=== PATIENT | male | born 1980 | race Hispanic/Latino ===

== ENCOUNTER 2016-11-26 23:45 | Inpatient (IN) | payer OTHER ==
[2016-11-27] MEDS: HEPARIN/ 0.45% NACL-25,000 UNIT/500 ML 500 ML IV SCH ×4 (01:05→22:42)
[2016-11-27] MEDS ORDERED: NACL 0.9% 500 ML 500 ML ONE (01:29)
[2016-11-27] MEDS ORDERED: TYLENOL PO PRN (01:34)
[2016-11-27] MEDS ORDERED: PERCOCET 5/325 PO PRN (01:34)
[2016-11-27] MEDS ORDERED: NACL 0.9% 1000 ML 1,000 ML IV ONE (01:47)
--- NOTE | 2016-11-27 01:48 | History and Physical Report ---
History of Present Illness Date of examination: 11/27/16 Date of admission: 11/26/16 23:45 History of present illness: 36-year-old man with a history of hypertension, diabetes, obesity, chronic pain was transfer from [facility] to [facility] on the sixth floor. Patient was diagnosed with sepsis secondary to pneumonia, psoas abscess, MSSA bacteremia. He was in respiratory failure, he was trached. While on LTAC, the patient was tachycardic, CAT scan was done which shows extensive bilateral pulmonary emboli in the saddle emboli. The patient was started on heparin drip. He was then transferred to the ICU for further care. Patient has been hypotensive, blood pressure right now is systolic 83, heart rate 115 Patient denies chest pain, palpitation, shortness of breath, cough, abdominal pain, hematochezia, dysuria, frequency, focal weakness, dysarthria, fever chills , polydipsia polyuria, hot or cold intolerance, easy bruisability, or rash or bleeding from mucosal membrane, rhinorrhea, epistaxis, earache, tinnitus, blurry vision, eye discharge, anxiety, depression. Other review of systems negative PAST SURGICAL HISTORY: None SOCIAL HISTORY: He chews tobacco, no alcohol, history of prescription abuse FAMILY HISTORY: Diabetes Medications and Allergies Allergies Allergy/AdvReac Type Severity Reaction Status Date / Time gentamicin Allergy Unknown Verified 11/27/16 02:31 neomycin Allergy Unknown Verified 11/27/16 02:31 Home Medications Medication Instructions Recorded Confirmed Last Taken Type ALBUTEROL NEB's [Proventil 0.083% 3 ml INHALATION Q6HR 11/29/16 11/29/16 Unknown History NEBS] ALPRAZolam [Xanax TAB] 0.25 mg FEEDTUBE Q6H PRN 11/29/16 11/29/16 11/25/16 History Acetaminophen ORAL LIQ 650 mg FEEDTUBE Q6H PRN 11/29/16 11/29/16 Unknown History Arformoterol Nebu [Brovana Nebu] 2 ml INHALATION BID 11/29/16 11/29/16 Unknown History Budesonide 2 ml INHALATION BID 11/29/16 11/29/16 Unknown History Docusate Sodium [Colace] 100 mg FEEDTUBE DAILY PRN 11/29/16 11/29/16 Unknown History FLUoxetine [PROzac] 20 mg FEEDTUBE QDAY 11/29/16 11/29/16 Unknown History HumaLOG VIAL See Protocol SUB-Q Q6H 11/29/16 11/29/16 Unknown History L. Acidophilus/L.bulgaricus [Bd 1 each FEEDTUBE DAILY 11/29/16 11/29/16 Unknown History Lactinex] Lipase/Protease/Amylase 1 cap FEEDTUBE PRN PRN 11/29/16 11/29/16 Unknown History Magnesium Hydroxide 30 ml FEEDTUBE PRN PRN 11/29/16 11/29/16 Unknown History Megestrol [Megace] 800 mg FEEDTUBE DAILY 11/29/16 11/29/16 11/25/16 History Methadone [Dolophine] 20 mg FEEDTUBE DAILY 11/29/16 11/29/16 11/25/16 History Nystop Powder 1 gm TP TID 11/29/16 11/29/16 11/25/16 History Pantoprazole [Protonix TAB] 40 mg FEEDTUBE DAILY 11/29/16 11/29/16 11/25/16 History Sucralfate [Carafate] 1 gm FEEDTUBE Q6HR 11/29/16 11/29/16 11/25/16 History Tamsulosin [Flomax] 0.4 mg PO QHS 11/29/16 11/29/16 11/25/16 History ceFAZolin SODIUM IN 0.9 % NACL 2 gm IV Q8H 11/29/16 11/29/16 11/25/16 History [Cefazolin 2 G/50 ml-0.9% NaCl] hydrALAZINE [Apresoline] 25 mg FEEDTUBE TID 11/29/16 11/29/16 Unknown History oxyCODONE /ACETAMINOPHEN 1 tab FEEDTUBE Q4H PRN 11/29/16 11/29/16 Unknown History Active Meds: Active Medications Acetaminophen (Tylenol) 650 mg PO Q6H PRN PRN Reason: Pain MILD(1-3)/Fever >100.5/MONSIVAIS Al Hydrox/Mg Hydrox/Simethicone (Alum-Mag Hydrox-Simeth [phone]/5ml) 30 ml PO Q4H PRN PRN Reason: Indigestion Heparin Sodium/Sodium Chloride (Heparin/ 0.45% Nacl-25,000 Unit/500 Ml) 500 mls @ IV TITR BISHOP; 15 UNITS/KG/HR PRN Reason: Protocol Sodium Chloride (Nacl 0.9% 1000 Ml) 1,000 mls @ 150 mls/hr IV DIRECT BISHOP Piperacillin Sod/Tazobactam Sod (Zosyn/Ns 3.375gm/50ml) 50 mls @ 100 mls/hr IV Q8HR BISHOP Sodium Chloride (Nacl 0.9% 1000 Ml) 1,000 mls @ 150 mls/hr IV DIRECT BISHOP Sodium Chloride (Nacl 0.9% 1000 Ml) 1,000 mls @ 999 mls/hr IV ONCE ONE Stop: 11/27/16 02:47 Magnesium Hydroxide (Milk Of Magnesia) 30 ml PO Q4H PRN PRN Reason: Constipation Ondansetron HCl (Zofran) 4 mg IV Q4H PRN PRN Reason: N/V unrelieved by Reglan Oxycodone/Acetaminophen (Percocet 5/325) 1 tab PO Q6H PRN PRN Reason: Pain, Moderate (4-6) Exam - Physical Exam Narrative exam: Gen. appearance: Patient lying in bed, no apparent distress HEENT: Normocephalic, atraumatic, pupils equally round and reactive to light, extraocular movement intact, and no sclericterus,. No JVD or thyromegaly or nodule,neck supple, no carotid bruit ,mucous membranes moist, no exudate or erythema Heart: S1, S2, regular rate and rhythm Lungs: Clear to auscultation bilaterally, breathing comfortable Abdomen: Positive bowel sounds, nontender, nondistended, no organomegaly Extremity: No edema, cyanosis, clubbing Skin: No rash, nodules, warm, dry Neuro: Oriented 3, cranial nerves II-12 intact, speech is fluent, motor and sensory intact - Constitutional Vitals: Temp Pulse Resp BP Pulse Ox 116 H 19 86/53 95 11/27/16 01:00 11/27/16 01:00 11/27/16 01:00 11/27/16 01:00 Results - Labs CBC & Chem 7: 12/01/16 07:16 11/30/16 04:18 - Imaging and Cardiology EKG: image reviewed (st, 115, read by me) CT scan - chest: report reviewed Assessment and Plan Extensive bilateral pulmonary emboli with saddle emboli Psoas abscess Hypotension secondary to pulmonary emboli Diabetes type 2 Obesity Status post respiratory failure Admit to ICU Continue heparin drip Consult vascular, case discussed with Dr. Collins He will take the patient immediately to catheter finisher and inspector for EKOS Check labs now Give a fluid bolus, start Levophed drip Continue Zosyn Consult cardiology, Dr. Devine is aware the patient and consult critical care Check fingersticks initiate insulin sliding scale, Percocet for pain DVT prophylaxis with heparin drip Care Discussed with family and patient, prognosis guarded The high probability of a clinically significant sudden or life-threatening deterioration of the [cardiac, respiratory, renal] system(s) required my full and direct attention, intervention and personal management. The aggregate critical care time was [40 ] minutes. This time is in addition to the time spent performing reported procedures but including [ X] Data review and interpretation [ X] Patient assessment and monitoring of vital signs [ X ] Documentation [X] Medication orders and management
[2016-11-27] MEDS ORDERED: NACL 0.9% 1000 ML 1,000 ML IV SCH ×4 (02:00→05:35)
[2016-11-27 02:35] LABS: Hemoglobin 11.6 gm/dl (11.8-15.2); Mean Corpuscular HGB Conc 31 % (32-34); Mean Corpuscular Hemoglobin 26 pg (28-32); Platelet Count 370 K/mm3 (140-440); Red Blood Count 4.42 M/mm3 (3.65-5.03); White Blood Count 11.1 K/mm3 (4.5-11.0)
[2016-11-27 02:36] LABS: Mean Corpuscular Volume 83 fl (84-94)
[2016-11-27] MEDS ORDERED: D50W (25GM) IV PRN (02:43)
[2016-11-27] MEDS ORDERED: NACL 0.9% 1000 ML 1,000 ML ONE ×3 (02:45→04:25)
[2016-11-27] MEDS ORDERED: VERSED ONE (02:45)
[2016-11-27] MEDS ORDERED: HEPARIN/NS 5000 UNIT/500ML(CATH LAB) 1,000 ML IR ONE (02:45)
[2016-11-27] MEDS ORDERED: HEPARIN 10,000 UNITS/10 ML ONE (02:45)
[2016-11-27] MEDS ORDERED: HEPARIN/ 0.45% NACL-25,000 UNIT/500 ML 500 ML ONE ×2 (02:45→02:52)
[2016-11-27] MEDS ORDERED: SUBLIMAZE ONE (02:45)
[2016-11-27] MEDS ORDERED: CATHFLO ONE ×2 (02:45→04:05)
[2016-11-27] MEDS ORDERED: WATER FOR INJ (PF) 10 ML ONE (02:46)
[2016-11-27] MEDS ORDERED: XYLOCAINE 1%/ EPI 1:100,000 INFILTRATI ONE (02:46)
[2016-11-27 03:23] LABS: Basophils % (Manual) 0 % (0.0-1.8); Blastocytes % (Manual) 0 %; Eosinophils % (Manual) 0 % (0.0-4.3)
[2016-11-27 03:24] LABS: Anisocytosis 1+; Diff Status Complete
[2016-11-27 03:31] LABS: INR 1.28 (0.87-1.13)
[2016-11-27 03:32] LABS: Partial Thromboplastin Time 46.2 Sec. (24.2-36.6)
[2016-11-27 03:33] LABS: Blood Urea Nitrogen 23 mg/dL (9-20); Calcium 9.3 mg/dL (8.4-10.2); Carbon Dioxide 16 mmol/L (22-30); Chloride 96.4 mmol/L (98-107); Glucose 214 mg/dL (75-100); Potassium 4.8 mmol/L (3.6-5.0); Sodium 133 mmol/L (137-145)
[2016-11-27 03:35] LABS: Anion Gap 25 mmol/L
[2016-11-27] MEDS ORDERED: ANCEF/STERILE WATER 2 GM/20 ML 20 ML IV ONE (03:39)
[2016-11-27] MEDS ORDERED: ZOFRAN ONE (03:44)
--- NOTE | 2016-11-27 04:54 | Consultation ---
History of Present Illness - Reason for Consult Consult date: 11/26/16 Requesting physician: DL COOK - History of Present Illness 36-year-old gentleman who was recovering from septic episode and LTAC suddenly developed acute tachycardia and shortness of breath. CT scan of the chest showed saddle bilateral pulmonary embolus. Patient was transferred to the intensive care unit with initial a stable blood pressure and then became hypotensive. Overall patient is not complaining of pain he is awake and alert. Past History Past Medical History: other (pneumonia, sepsis) Past Surgical History: No surgical history Social history: other (chews tobacco). denies: alcohol abuse Family history: diabetes Medications and Allergies Allergies Allergy/AdvReac Type Severity Reaction Status Date / Time gentamicin Allergy Unknown Verified 11/27/16 02:31 neomycin Allergy Unknown Verified 11/27/16 02:31 Active Meds: Active Medications Acetaminophen (Tylenol) 650 mg PO Q6H PRN PRN Reason: Pain MILD(1-3)/Fever >100.5/MONSIVAIS Acetaminophen/Hydrocodone Bitart ([place] 5/325) 2 each PO Q6H PRN PRN Reason: Pain, Moderate (4-6) Al Hydrox/Mg Hydrox/Simethicone (Alum-Mag Hydrox-Simeth [phone]/5ml) 30 ml PO Q4H PRN PRN Reason: Indigestion Dextrose (D50w (25gm)) 50 ml IV PRN PRN PRN Reason: Hypoglycemia Heparin Sodium/Sodium Chloride (Heparin/ 0.45% Nacl-25,000 Unit/500 Ml) 500 mls @ 30 mls/hr IV TITR BISHOP; 1,500 UNITS/HR PRN Reason: Protocol Sodium Chloride (Nacl 0.9% 1000 Ml) 1,000 mls @ 150 mls/hr IV DIRECT BISHOP Piperacillin Sod/Tazobactam Sod (Zosyn/Ns 3.375gm/50ml) 50 mls @ 100 mls/hr IV Q8HR BISHOP Norepinephrine (Levophed Drip 4 Mg/Ns 250 Ml) 250 mls @ 7.5 mls/hr IV TITR BISHOP ; 2 MCG/MIN PRN Reason: Protocol Sodium Chloride (Nacl 0.9% 1000 Ml) 1,000 mls @ 30 mls/hr IV DIRECT BISHOP Alteplase, Recombinant 12 mg/ (Sodium Chloride) 250 mls @ 10 mls/hr IV DIRECT BISHOP Insulin Aspart (Novolog) 0 units SUB-Q ACHS BISHOP PRN Reason: Protocol Magnesium Hydroxide (Milk Of Magnesia) 30 ml PO Q4H PRN PRN Reason: Constipation Morphine Sulfate (Morphine) 2 mg IV Q4H PRN PRN Reason: Pain, Moderate (4-6) Morphine Sulfate (Morphine) 4 mg IV Q4H PRN PRN Reason: Pain , Severe (7-10) Ondansetron HCl (Zofran) 4 mg IV Q4H PRN PRN Reason: N/V unrelieved by Reglan Oxycodone/Acetaminophen (Percocet 5/325) 1 tab PO Q6H PRN PRN Reason: Pain, Moderate (4-6) Review of Systems All systems: negative (denies short of breath) Exam - Physical Exam Narrative exam: Head normocephalic atraumatic Eyes extraocular muscles intact. Oral mucosa moist. Neck no carotid bruit lymph nodes or JVD. Heart tachycardia regular rate and rhythm. Lungs clear to auscultation bilaterally. Abdomen soft, mild tenderness nondistended normal bowel sounds. Peripheral vascular exam 2+ femoral pulses bilaterally Extremities no swelling, discoloration, cyanosis. - Constitutional Vitals: Temp Pulse Resp BP Pulse Ox 108 H 21 96/69 95 11/27/16 02:36 11/27/16 02:36 11/27/16 02:36 11/27/16 01:08 Results - Labs CBC & Chem 7: 11/27/16 02:24 11/27/16 02:58 Labs: Abnormal lab results 11/27/16 11/27/16 11/27/16 Range/Units 02:04 02:24 02:58 WBC 11.1 H (4.5-11.0) K/mm3 Hgb 11.6 L (11.8-15.2) gm/dl MCV 83 L (84-94) fl MCH 26 L (28-32) pg MCHC 31 L (32-34) % RDW 17.0 H (13.2-15.2) % Monocytes % (Manual) 15.0 H (0.0-7.3) % Monocytes # (Manual) 1.7 H (0.0-0.8) K/mm3 PT (12.2-14.9) Sec. INR (0.87-1.13) APTT (24.2-36.6) Sec. Fibrinogen (211-480) mg/dl Sodium 133 L (137-145) mmol/L Chloride 96.4 L (98-107) mmol/L Carbon Dioxide 16 L D (22-30) mmol/L BUN 23 H (9-20) mg/dL Creatinine 0.5 L D (0.8-1.5) mg/dL Glucose 214 H (75-100) mg/dL POC Glucose 211 H (70-105) 11/27/ Range/Units 02:58 WBC (4.5-11.0) K/mm3 Hgb (11.8-15.2) gm/dl MCV (84-94) fl MCH (28-32) pg MCHC (32-34) % RDW (13.2-15.2) % Monocytes % (Manual) (0.0-7.3) % Monocytes # (Manual) (0.0-0.8) K/mm3 PT 15.9 H (12.2-14.9) Sec. INR 1.28 H (0.87-1.13) APTT 46.2 H (24.2-36.6) Sec. Fibrinogen 603 H (211-480) mg/dl Sodium (137-145) mmol/L Chloride (98-107) mmol/L Carbon Dioxide (22-30) mmol/L BUN (9-20) mg/dL Creatinine (0.8-1.5) mg/dL Glucose (75-100) mg/dL POC Glucose (70-105) - Imaging and Cardiology CT scan - chest: report reviewed, image reviewed (bilateral extensive pulmonary embolus) Assessment and Plan Acute pulmonary embolus in the unstable patient. Patient is a good candidate for EKOS therapy. Plan: Patient is going to the Library Director for immediate placement of EKOS catheters
--- NOTE | 2016-11-27 05:14 | Operative Report ---
Operative Report Operative Report: Date of procedure:11/27/2016 Pre-operative diagnosis: Acute pulmonary embolus; bilateral Post-operative diagnosis: Same Procedure name(s): 1. Ultrasound-guided cannulation of the right common femoral vein. 2. Placement of the left pulmonary artery EKOS catheter. 3. Placement of the right pulmonary artery EKOS catheter. 4. Infusion of TPA into bilateral pulmonary arteries. 5. Bilateral pulmonary angiogram. 6. Radiologic supervision and interpretation. 7. Ultrasound-guided cannulation of the left common femoral vein. 8. Left femoral triple-lumen central line placement. Surgeon: Elbert Collins MD, RPVI Qa Software Tester: None Anesthesia: Local Findings 1. Patent bilateral femoral veins. 2. Successful cannulation of bilateral femoral veins. 3. Bilateral pulmonary embolism. 4. Successful placement of bilateral EKOS catheters into the pulmonary arteries with angiographic confirmation. Specimens: None EBL: Minimal IV fluids: KVO Urine output: None Disposition: ICU Indications: Unstable patient with bilateral pulmonary embolus. Procedure: Patient was brought to the catheterization lab and laid on the table in supine position. Prior to prepping and draping bilateral femoral veins were interrogated with ultrasound and both found to be patent. Patient was prepped and draped in usual sterile fashion. Right groin was infiltrated with 1% lidocaine. Under ultrasound guidance the right femoral vein was accessed using the micropuncture needle. The micropuncture wire was advanced under fluoroscopic guidance without resistance. The micropuncture introducer was placed. The wire was exchanged for a long Bentson wire and a 6 [place] sheath was placed in the right common femoral vein. This procedure was repeated again and a second 6 [place] sheath was placed in the right common femoral vein in the exact same fashion. Then the left groin was infiltrated with lidocaine and under ultrasound guidance the micropuncture needle was inserted into the left common femoral vein. The micropuncture wire was advanced without resistance under fluoroscopic guidance and the needle was exchanged for a micropuncture introducer. A puncture wire was exchanged for 0.035 guidewire. The tract was dilated with a dilator and the triple-lumen catheter was placed into the left common femoral vein. It was sutured in place using 2-0 silk stitch. Both 6 Guatemalan sheath in the right groins were sutured in place using 2-0 nylon stitch. The Bentson wire was advanced into the right atrium. JR4 catheter was advanced over the wire and guided the wire into the right ventricle. The catheter followed. The wire was then guided into the pulmonary outflow and directed down the left main pulmonary artery and toward the lower lobe. The catheter was removed and the EKOS catheter was placed into the left pulmonary artery. The angiogram confirmed good position of the EKOS catheter. The ultrasound wire was placed into the catheter. The catheter was secured to the skin and the sheath using 2-0 silk tie. Patient received the prime 3 mg of TPA. Then the second [employer] wire was advanced through the second sheath into the right atrium. A long vertebral catheter advanced over the wire directed the wire into the right ventricle. The catheter followed and then directed the wire out into the pulmonary outflow. Then the wire was advanced and directed into the right main pulmonary artery. It was directed down into the lower lobe. The catheter was removed and the second EKOS catheter was directed over the wire into the right pulmonary artery. It was also confirmed with pulmonary angiography. The ultrasound wire was advanced into the catheter and secured in place. The catheter was secured to the skin and the sheath with 2-0 silk tie. It was primed with 3 mg of TPA. Patient tolerated procedure well and was returned to the ICU.
[2016-11-27] MEDS: MORPHINE IV PRN ×2 (05:27→12:20)
[2016-11-27] MEDS: NACL 0.9% 1000 ML 1,000 ML IV SCH ×2 (05:35→19:34)
[2016-11-27] MEDS: NACL 0.9% IV SCH ×2 (05:52→06:00)
[2016-11-27] MEDS: CATHFLO IV SCH ×2 (05:52→06:00)
[2016-11-27] MEDS: ZOSYN/NS 3.375GM/50ML 50 ML IV SCH ×3 (05:56→22:25)
[2016-11-27] MEDS ORDERED: HEPARIN/ 0.45% NACL-25,000 UNIT/500 ML 500 ML IV SCH (06:00)
[2016-11-27 06:45] LABS: Hematocrit 35.6 % (35.5-45.6); Hemoglobin 11.1 gm/dl (11.8-15.2); Mean Corpuscular HGB Conc 31 % (32-34); Mean Corpuscular Volume 82 fl (84-94); Platelet Count 472 K/mm3 (140-440); Red Blood Count 4.33 M/mm3 (3.65-5.03); Red Cell Distribution Width 16.9 % (13.2-15.2); White Blood Count 13.2 K/mm3 (4.5-11.0)
[2016-11-27 06:55] LABS: INR 1.54 (0.87-1.13)
[2016-11-27] MEDS: ZOFRAN IV PRN ×2 (06:55→09:21)
[2016-11-27 07:02] LABS: BUN/Creatinine Ratio 38.33; Blood Urea Nitrogen 23 mg/dL (9-20); Calcium 9.4 mg/dL (8.4-10.2); Carbon Dioxide 17 mmol/L (22-30); Chloride 96.6 mmol/L (98-107); Glucose 223 mg/dL (75-100); Potassium 4.3 mmol/L (3.6-5.0); Sodium 136 mmol/L (137-145)
[2016-11-27 07:03] LABS: Anion Gap 27 mmol/L; Mean Corpuscular Hemoglobin 26 pg (28-32)
[2016-11-27 07:19] LABS: Partial Thromboplastin Time TNR Sec. (24.2-36.6)
[2016-11-27] MEDS ORDERED: XANAX PO ONE (08:00)
[2016-11-27 08:54] LABS: Basophils % (Manual) 0 % (0.0-1.8); Blastocytes % (Manual) 0 %; Eosinophils % (Manual) 0 % (0.0-4.3)
[2016-11-27 08:55] LABS: Anisocytosis 1+; Diff Status Complete; Polychromasia Few
--- NOTE | 2016-11-27 09:23 | Progress Note ---
Assessment and Plan Assessment and plan: 1. Extensive bilateral pulmonary emboli with saddle emboli. Patient is status post bilateral EKOS catheter placement. Continue per interventional radiology. Continue anticoagulation and monitor closely. 2. Psoas abscess. Continue current antibiotics. ID consultation. 3. Hypotension secondary to pulmonary emboli. Patient currently requiring Levophed. Wean as tolerated. 4. Diabetes type 2. Continue sliding-scale insulin and Accu-Cheks. 1800 ADA diet. 5. Obesity 6. Acute hypoxic respiratory failure. Etiology secondary to #1. Continue supportive care. The high probability of a clinically significant, sudden or life threatening deterioration of the [respiratory] system(s) required my full and direct attention, intervention and personal management. The aggregate critical care time was [32] minutes. This time is in addition to time spent performing reported procedures but includes the following: [x] Data Review and interpretation [x] Patient assessment and monitoring of vital signs [x] Documentation [x] Medication orders and management History Interval history: 36-year-old man with a history of hypertension, diabetes, obesity, chronic pain was transfer from [facility] to LT on the sixth floor. Patient was diagnosed with sepsis secondary to pneumonia, psoas abscess, MSSA bacteremia. He was in respiratory failure, he was trached. While on LTAC, the patient was tachycardic, CAT scan was done which shows extensive bilateral pulmonary emboli in the saddle emboli. The patient was started on heparin drip. He was then transferred to the ICU for further care. Patient had successful placement of bilateral EKOS catheters into the pulmonary arteries with angiographic confirmation. No new issues overnight. Hospitalist Physical - Constitutional Vitals: Temp Pulse Resp BP Pulse Ox 98.0 F 124 H 21 106/66 95 11/27/16 05:35 11/27/16 08:00 11/27/16 08:00 11/27/16 08:00 11/27/16 08:00 General appearance: Present: no acute distress, well-nourished - EENT Eyes: Present: PERRL, EOM intact ENT: hearing intact, clear oral mucosa, dentition normal - Neck Neck: Present: supple, normal ROM - Respiratory Respiratory effort: normal Respiratory: bilateral: CTA - Cardiovascular Rhythm: regular Heart Sounds: Present: S1 & S2. Absent: gallop, rub - Extremities Extremities: no ischemia, No edema, Full ROM Extremity abnormal: other (EKOS catheter in place) - Abdominal General gastrointestinal: soft, non-tender, non-distended, normal bowel sounds - Integumentary Integumentary: Present: clear, warm, dry - Neurologic Neurologic: CNII-XII intact, moves all extremities Results - Labs CBC & Chem 7: 11/27/16 06:20 11/27/16 06:20 Labs: Laboratory Last Values WBC 13.2 K/mm3 (4.5-11.0) H 11/27/16 06:20 RBC 4.33 M/mm3 (3.65-5.03) 11/27/16 06:20 Hgb 11.1 gm/dl (11.8-15.2) L 11/27/16 06:20 Hct 35.6 % (35.5-45.6) 11/27/16 06:20 MCV 82 fl (84-94) L 11/27/16 06:20 MCH 26 pg (28-32) L 11/27/16 06:20 MCHC 31 % (32-34) L 11/27/16 06:20 RDW 16.9 % (13.2-15.2) H 11/27/16 06:20 Plt Count 472 K/mm3 (140-440) H 11/27/16 06:20 Add Manual Diff Complete 11/27/16 06:20 Total Counted 100 11/27/16 06:20 Seg Neuts % (Manual) 82.0 % (40.0-70.0) H 11/27/16 06:20 Band Neutrophils % 1.0 % 11/27/16 06:20 Lymphocytes % (Manual) 6.0 % (13.4-35.0) L 11/27/16 06:20 Reactive Lymphs % (Man) 0 % 11/27/16 06:20 Monocytes % (Manual) 9.0 % (0.0-7.3) H 11/27/16 06:20 Eosinophils % (Manual) 0 % (0.0-4.3) 11/27/16 06:20 Basophils % (Manual) 0 % (0.0-1.8) 11/27/16 06:20 Metamyelocytes % 2.0 % 11/27/16 06:20 Myelocytes % 0 % 11/27/16 06:20 Promyelocytes % 0 % 11/27/16 06:20 Blast Cells % 0 % 11/27/16 06:20 Nucleated RBC % Not Reportable 11/27/16 06:20 Seg Neutrophils # Man 10.8 K/mm3 (1.8-7.7) H 11/27/16 06:20 Band Neutrophils # 0.1 K/mm3 11/27/16 06:20 Lymphocytes # (Manual) 0.8 K/mm3 (1.2-5.4) L 11/27/16 06:20 Abs React Lymphs (Man) 0.0 K/mm3 11/27/16 06:20 Monocytes # (Manual) 1.2 K/mm3 (0.0-0.8) H 11/27/16 06:20 Eosinophils # (Manual) 0.0 K/mm3 (0.0-0.4) 11/27/16 06:20 Basophils # (Manual) 0.0 K/mm3 (0.0-0.1) 11/27/16 06:20 Metamyelocytes # 0.3 K/mm3 11/27/16 06:20 Myelocytes # 0.0 K/mm3 11/27/16 06:20 Promyelocytes # 0.0 K/mm3 11/27/16 06:20 Blast Cells # 0.0 K/mm3 11/27/16 06:20 WBC Morphology Not Reportable 11/27/16 06:20 Hypersegmented Neuts Not Reportable 11/27/16 06:20 Hyposegmented Neuts Not Reportable 11/27/16 06:20 Hypogranular Neuts Not Reportable 11/27/16 06:20 Smudge Cells Not Reportable 11/27/16 06:20 Toxic Granulation Not Reportable 11/27/16 06:20 Toxic Vacuolation Not Reportable 11/27/16 06:20 Dohle Bodies Not Reportable 11/27/16 06:20 Pelger-Huet Anomaly Not Reportable 11/27/16 06:20 Mati Rods Not Reportable 11/27/16 06:20 Platelet Estimate Appears normal 11/27/16 06:20 Clumped Platelets Not Reportable 11/27/16 06:20 Plt Clumps, EDTA Not Reportable 11/27/16 06:20 Large Platelets Not Reportable 11/27/16 06:20 Giant Platelets Not Reportable 11/27/16 06:20 Platelet Satelliting Not Reportable 11/27/16 06:20 Plt Morphology Comment Not Reportable 11/27/16 06:20 RBC Morphology Not Reportable 11/27/16 06:20 Dimorphic RBCs Not Reportable 11/27/16 06:20 Polychromasia Few 11/27/16 06:20 Hypochromasia Not Reportable 11/27/16 06:20 Poikilocytosis Not Reportable 11/27/16 06:20 Anisocytosis 1+ 11/27/16 06:20 Microcytosis Not Reportable 11/27/16 06:20 Macrocytosis Not Reportable 11/27/16 06:20 Spherocytes Not Reportable 11/27/16 06:20 Pappenheimer Bodies Not Reportable 11/27/16 06:20 Sickle Cells Not Reportable 11/27/16 06:20 Target Cells Not Reportable 11/27/16 06:20 Tear Drop Cells Not Reportable 11/27/16 06:20 Ovalocytes Not Reportable 11/27/16 06:20 Helmet Cells Not Reportable 11/27/16 06:20 Serrato-[place] Bodies Not Reportable 11/27/16 06:20 Saco Rings Not Reportable 11/27/16 06:20 William Cells Not Reportable 11/27/16 06:20 Bite Cells Not Reportable 11/27/16 06:20 Crenated Cell Not Reportable 11/27/16 06:20 Elliptocytes Not Reportable 11/27/16 06:20 Acanthocytes (Spur) Not Reportable 11/27/16 06:20 Rouleaux Not Reportable 11/27/16 06:20 Hemoglobin C Crystals Not Reportable 11/27/16 06:20 Schistocytes Not Reportable 11/27/16 06:20 Malaria parasites Not Reportable 11/27/16 06:20 Michael Bodies Not Reportable 11/27/16 06:20 Hem Pathologist Commnt No 11/27/16 06:20 PT 18.5 Sec. (12.2-14.9) H 11/27/16 06:20 INR 1.54 (0.87-1.13) H 11/27/16 06:20 APTT TNR 11/27/16 06:20 Fibrinogen 603 mg/dl (211-480) H 11/27/16 02:58 Heparin Anti-Xa Level 0.99 U.I./ml (0.3-0.7) H 11/27/16 06:20 Sodium 136 mmol/L (137-145) L 11/27/16 06:20 Potassium 4.3 mmol/L (3.6-5.0) 11/27/16 06:20 Chloride 96.6 mmol/L (98-107) L 11/27/16 06:20 Carbon Dioxide 17 mmol/L (22-30) L 11/27/16 06:20 Anion Gap 27 mmol/L 11/27/16 06:20 BUN 23 mg/dL (9-20) H 11/27/16 06:20 Creatinine 0.6 mg/dL (0.8-1.5) L 11/27/16 06:20 Estimated GFR > 60 ml/min 11/27/16 06:20 BUN/Creatinine Ratio 38.33 % 11/27/16 06:20 Glucose 223 mg/dL (75-100) H 11/27/16 06:20 POC Glucose 211 (70-105) H 11/27/16 02:04 Calcium 9.4 mg/dL (8.4-10.2) 11/27/16 06:20 Blood Type O POSITIVE 11/27/16 02:58 Antibody Screen Negative 11/27/16 02:58
[2016-11-27] MEDS: NORCO 5/325 PO PRN (10:17)
[2016-11-27] MEDS: NOVOLOG SUB-Q SCH ×4 (10:20→22:41)
--- NOTE | 2016-11-27 10:20 | Consultation ---
History of Present Illness Consult date: 11/27/16 Requesting physician: DL COOK Reason for consult: pulmonary embolism (saddle embolus), other History of present illness: PULMONARY CONSULT NOTE (Full note dictated #) please see dictated notes for full details Past History Past Medical History: other (pneumonia, sepsis) Past Surgical History: No surgical history Social history: other (chews tobacco). denies: alcohol abuse Family history: diabetes Medications and Allergies Allergies Allergy/AdvReac Type Severity Reaction Status Date / Time gentamicin Allergy Unknown Verified 11/27/16 02:31 neomycin Allergy Unknown Verified 11/27/16 02:31 Active Meds: Active Medications Acetaminophen (Tylenol) 650 mg PO Q6H PRN PRN Reason: Pain MILD(1-3)/Fever >100.5/[place]SIV[place]IS Acetaminophen/Hydrocodone Bitart ([place] 5/325) 2 each PO Q6H PRN PRN Reason: Pain, Moderate (4-6) Last Admin: 11/27/16 10:17 Dose: 2 each Al Hydrox/Mg Hydrox/Simethicone (Alum-Mag Hydrox-Simeth 610-838-76il/5ml) 30 ml PO Q4H PRN PRN Reason: Indigestion Dextrose (D50w (25gm)) 50 ml IV PRN PRN PRN Reason: Hypoglycemia Piperacillin Sod/Tazobactam Sod (Zosyn/Ns 3.375gm/50ml) 50 mls @ 100 mls/hr IV Q8HR BISHOP Last Admin: 11/27/16 05:56 Dose: 100 mls/hr Norepinephrine (Levophed Drip 4 Mg/Ns 250 Ml) 250 mls @ 7.5 mls/hr IV TITR BISHOP ; 2 MCG/MIN PRN Reason: Protocol Alteplase, Recombinant 12 mg/ (Sodium Chloride) 250 mls @ 10 mls/hr IV DIRECT BISHOP Last Admin: 11/27/16 06:00 Dose: 500 mls Heparin Sodium/Sodium Chloride (Heparin/ 0.45% Nacl-25,000 Unit/500 Ml) 500 mls @ 10 mls/hr IV DIRECT BISHOP PRN Reason: 500 UNITS/HR Sodium Chloride (Nacl 0.9% 1000 Ml) 1,000 mls @ 35 mls/hr IV DIRECT BISHOP Last Admin: 11/27/16 05:35 Dose: 35 mls/hr Heparin Sodium/Sodium Chloride (Heparin/ 0.45% Nacl-25,000 Unit/500 Ml) 500 mls @ 30 mls/hr IV TITR BISHOP; 1,500 UNITS/HR PRN Reason: Protocol Insulin Aspart (Novolog) 0 units SUB-Q ACHS BISHOP PRN Reason: Protocol Magnesium Hydroxide (Milk Of Magnesia) 30 ml PO Q4H PRN PRN Reason: Constipation Morphine Sulfate (Morphine) 2 mg IV Q4H PRN PRN Reason: Pain, Moderate (4-6) Last Admin: 11/27/16 05:27 Dose: 2 mg Morphine Sulfate (Morphine) 4 mg IV Q4H PRN PRN Reason: Pain , Severe (7-10) Ondansetron HCl (Zofran) 4 mg IV Q4H PRN PRN Reason: N/V unrelieved by Radha Last Admin: 11/27/16 09:21 Dose: 4 mg Oxycodone/Acetaminophen (Percocet 5/325) 1 tab PO Q6H PRN PRN Reason: Pain, Moderate (4-6) Last Admin: 11/27/16 05:24 Dose: 1 tab Physical Examination Vital signs: Vital Signs Pulse Resp 120 H 17 11/27/16 00:36 11/27/16 00:36 Results - Laboratory Findings CBC and BMP: 11/27/16 06:20 11/27/16 06:20 PT/INR, D-dimer PT 18.5 Sec. (12.2-14.9) H 11/27/16 06:20 INR 1.54 (0.87-1.13) H 11/27/16 06:20 Abnormal lab findings: Abnormal Labs 11/27/16 11/27/16 11/27/16 02:04 02:24 02:58 WBC 11.1 H Hgb 11.6 L MCV 83 L MCH 26 L MCHC 31 L RDW 17.0 H Plt Count Seg Neuts % (Manual) Lymphocytes % (Manual) Monocytes % (Manual) 15.0 H Seg Neutrophils # Man Lymphocytes # (Manual) Monocytes # (Manual) 1.7 H PT INR APTT Fibrinogen Heparin Anti-Xa Level Sodium 133 L Chloride 96.4 L Carbon Dioxide 16 L D BUN 23 H Creatinine 0.5 L D Glucose 214 H POC Glucose 211 H 11/27/16 11/27/16 11/27/16 02:58 06:20 06:20 WBC 13.2 H Hgb 11.1 L MCV 82 L MCH 26 L MCHC 31 L RDW 16.9 H Plt Count 472 H Seg Neuts % (Manual) 82.0 H Lymphocytes % (Manual) 6.0 L Monocytes % (Manual) 9.0 H Seg Neutrophils # Man 10.8 H Lymphocytes # (Manual) 0.8 L Monocytes # (Manual) 1.2 H PT 15.9 H 18.5 H INR 1.28 H 1.54 H APTT 46.2 H Fibrinogen 603 H Heparin Anti-Xa Level Sodium Chloride Carbon Dioxide BUN Creatinine Glucose POC Glucose 11/27/16 11/27/16 06:20 06:20 WBC Hgb MCV MCH MCHC RDW Plt Count Seg Neuts % (Manual) Lymphocytes % (Manual) Monocytes % (Manual) Seg Neutrophils # Man Lymphocytes # (Manual) Monocytes # (Manual) PT INR APTT Fibrinogen Heparin Anti-Xa Level 0.99 H Sodium 136 L Chloride 96.6 L Carbon Dioxide 17 L BUN 23 H Creatinine 0.6 L Glucose 223 H POC Glucose
[2016-11-27] MEDS: LEVOPHED DRIP 4 MG/NS 250 ML 250 ML IV SCH ×2 (10:58→13:00)
[2016-11-27 11:07] LABS: Hematocrit 34.5 % (35.5-45.6); Hemoglobin 11.2 gm/dl (11.8-15.2); Mean Corpuscular HGB Conc 32 % (32-34); Mean Corpuscular Hemoglobin 26 pg (28-32); Mean Corpuscular Volume 81 fl (84-94); Platelet Count 411 K/mm3 (140-440); Red Blood Count 4.26 M/mm3 (3.65-5.03); White Blood Count 11.6 K/mm3 (4.5-11.0)
--- NOTE | 2016-11-27 12:26 | Consultation ---
History of Present Illness Consult date: 11/27/16 Requesting physician: DL COOK Consult reason: other (saddle emboli) History of present illness: The patient is a 36 year old male with a history of hypertension, diabetes, chronic pain who had been admitted to [facility] for respiratory failure s/p trach. While in LTAC, he developed acute tachycardia and shortness of breath. Chest CT revealed saddle bilateral pulmonary embolus. Pt. was transferred to ICU and underwent EKOS procedure by Dr. Collins this morning. Past History Past Medical History: diabetes, hypertension, other (pneumonia, sepsis) Past Surgical History: Other (s/p trach) Social history: other (chews tobacco). denies: alcohol abuse Family history: diabetes Medications and Allergies Allergies Allergy/AdvReac Type Severity Reaction Status Date / Time gentamicin Allergy Unknown Verified 11/27/16 02:31 neomycin Allergy Unknown Verified 11/27/16 02:31 Active Meds: Active Medications Acetaminophen (Tylenol) 650 mg PO Q6H PRN PRN Reason: Pain MILD(1-3)/Fever >100.5/[place] Acetaminophen/Hydrocodone Bitart ([place] 5/325) 2 each PO Q6H PRN PRN Reason: Pain, Moderate (4-6) Last Admin: 11/27/16 10:17 Dose: 2 each Al Hydrox/Mg Hydrox/Simethicone (Alum-Mag Hydrox-Simeth [id number]/5ml) 30 ml PO Q4H PRN PRN Reason: Indigestion Dextrose (D50w (25gm)) 50 ml IV PRN PRN PRN Reason: Hypoglycemia Piperacillin Sod/Tazobactam Sod (Zosyn/Ns 3.375gm/50ml) 50 mls @ 100 mls/hr IV Q8HR BISHOP Last Admin: 11/27/16 05:56 Dose: 100 mls/hr Norepinephrine (Levophed Drip 4 Mg/Ns 250 Ml) 250 mls @ 7.5 mls/hr IV TITR BISHOP ; 2 MCG/MIN PRN Reason: Protocol Last Admin: 11/27/16 10:58 Dose: 22.5 mls/hr Alteplase, Recombinant 12 mg/ (Sodium Chloride) 250 mls @ 10 mls/hr IV DIRECT BISHOP Last Admin: 11/27/16 06:00 Dose: 500 mls Heparin Sodium/Sodium Chloride (Heparin/ 0.45% Nacl-25,000 Unit/500 Ml) 500 mls @ 10 mls/hr IV DIRECT BISHOP PRN Reason: 500 UNITS/HR Sodium Chloride (Nacl 0.9% 1000 Ml) 1,000 mls @ 35 mls/hr IV DIRECT BISHOP Last Admin: 11/27/16 05:35 Dose: 35 mls/hr Heparin Sodium/Sodium Chloride (Heparin/ 0.45% Nacl-25,000 Unit/500 Ml) 500 mls @ 30 mls/hr IV TITR BISHOP; 1,500 UNITS/HR PRN Reason: Protocol Last Admin: 11/27/16 10:58 Dose: 30 mls/hr Insulin Aspart (Novolog) 0 units SUB-Q ACHS BISHOP PRN Reason: Protocol Last Admin: 11/27/16 10:20 Dose: Not Given Magnesium Hydroxide (Milk Of Magnesia) 30 ml PO Q4H PRN PRN Reason: Constipation Morphine Sulfate (Morphine) 2 mg IV Q4H PRN PRN Reason: Pain, Moderate (4-6) Last Admin: 11/27/16 05:27 Dose: 2 mg Morphine Sulfate (Morphine) 4 mg IV Q4H PRN PRN Reason: Pain , Severe (7-10) Last Admin: 11/27/16 12:20 Dose: 4 mg Ondansetron HCl (Zofran) 4 mg IV Q4H PRN PRN Reason: N/V unrelieved by Reglan Last Admin: 11/27/16 09:21 Dose: 4 mg Oxycodone/Acetaminophen (Percocet 5/325) 1 tab PO Q6H PRN PRN Reason: Pain, Moderate (4-6) Last Admin: 11/27/16 05:24 Dose: 1 tab Review of Systems Constitutional: no fever, no chills Ears, nose, mouth and throat: no nasal congestion, no nasal discharge, no sinus pressure Cardiovascular: shortness of breath, no chest pain, no palpitations Respiratory: no cough, no congestion, no wheezing Gastrointestinal: no nausea, no vomiting Genitourinary Male: no dysuria, no hematuria Musculoskeletal: other (back pain), no neck stiffness, no neck pain Integumentary: no rash, no pruritis Neurological: no parathesias, no numbness Endocrine: no cold intolerance, no heat intolerance Hematologic/Lymphatic: no easy bruising, no easy bleeding Allergic/Immunologic: no urticaria, no wheezing Physical Examination Last Vital Signs Temp 98.0 F 11/27/16 05:35 Pulse 118 H 11/27/16 14:45 Resp 31 H 11/27/16 14:45 BP 109/70 11/27/16 14:45 Pulse Ox 92 11/27/16 14:45 General appearance: no acute distress HEENT: Positive: Normocephaly, Mucus Membranes Moist Neck: Positive: neck supple, trachea midline Cardiac: Positive: Regular Rhythm, S1/S2, Tachycardia Lungs: Positive: Decreased Breath Sounds Neuro: Positive: Grossly Intact Abdomen: Positive: Soft, Active Bowel Sounds. Negative: Tender Skin: Positive: Clear. Negative: Rash Extremities: Present: normal. Absent: edema Results 11/27/16 09:45 11/27/16 06:20 Coagulation 11/27/16 11/27/16 Range/Units 02:58 06:20 PT 15.9 H 18.5 H (12.2-14.9) Sec. INR 1.28 H 1.54 H (0.87-1.13) APTT 46.2 H TNR (24.2-36.6) Sec. CBC 11/27/16 11/27/16 11/27/16 Range/Units 02:24 06:20 09:45 WBC 11.1 H 13.2 H 11.6 H (4.5-11.0) K/mm3 RBC 4.42 4.33 4.26 (3.65-5.03) M/mm3 Hgb 11.6 L 11.1 L 11.2 L (11.8-15.2) gm/dl Hct 37.0 35.6 34.5 L (35.5-45.6) % Plt Count 370 472 H 411 (140-440) K/mm3 Comprehensive Metabolic Panel 11/27/16 11/27/16 Range/Units 02:58 06:20 Sodium 133 L 136 L (137-145) mmol/L Potassium 4.8 D 4.3 (3.6-5.0) mmol/L Chloride 96.4 L 96.6 L (98-107) mmol/L Carbon Dioxide 16 L D 17 L (22-30) mmol/L BUN 23 H 23 H (9-20) mg/dL Creatinine 0.5 L D 0.6 L (0.8-1.5) mg/dL Glucose 214 H 223 H (75-100) mg/dL Calcium 9.3 9.4 (8.4-10.2) mg/dL - Imaging and Cardiology Echo: pending EKG: image reviewed EKG interpretations - Telemetry EKG Rhythm: Sinus Tachycardia - EKG Sinus rhythms and dysrhythmias: sinus tachycardia Repolarization changes or abnormalities: nonspecific abnormality, ST segment, and/or T wave Assessment and Plan Bilateral pulmonary emboli with saddle emboli s/p EKOS, per vascular await echo findings Hypotension wean levophed to maintain MAP > 65 Acute respiratory failure Diabetes Psoas abscess Continue current management. Await echo findings. Will follow. The patient has been seen in conjunction with Dr. Morris who agrees with the assessment and plan of care.
[2016-11-27] MEDS ORDERED: ATIVAN ONE (12:57)
[2016-11-27] MEDS ORDERED: ATIVAN IV ONE (12:57)
--- NOTE | 2016-11-27 13:28 | Admit Criteria Form ---
Admission Criteria Documentation: PULMONARY EMBOLISM Clinical Indications for Admission to Inpatient Care (Place 'X' for any and all applicable criteria): Admission is indicated by ANY ONE of the following 1,2,3,4,5 [ ]I. Onset of hypoxia [X ]II. Hemodynamic instability 5 [ X]III. Massive pulmonary embolism (eg, acute embolism causing sustained hypotension, pulselessness, or bradycardia)5 [ ]IV. Need for IV narcotics (eg, to treat dyspnea) [ ]V. Current use of home oxygen therapy [ ]. Active bleeding [ ]VII. Recent surgery [ ]VIII. Active peptic ulcer disease [ ]IX. Documented extensive thrombosis (eg, clot in vena cava or above iliofemoral bifurcation) [ ]X. Embolism while on anticoagulation [ ]XI. 6 [X ]XII. Appropriate monitoring and therapy cannot be provided in home or outpatient setting. [ X]XIII. Systemic or catheter-directed thrombolysis 5,7 [ ]XIV. Catheter embolectomy and fragmentation 6 [ ]XV. Vena cava filter placement5 [ ]XVI. Severely diminished cardiopulmonary reserve (eg, cor pulmonale, pulmonary hypertension) [ ]XVII. Severe renal failure (eg, GFR less than 30 mL/min/1.73m2 (0.5 mL/sec/ 1.73m2)) [ ]XVIII.Right ventricular dysfunction (eg, by echocardiogram) 6,11 [ ]XIX. Positive cardiac biomarker (eg, troponin T or I > 0.1 ng/mL (mcg/L), highly sensitive troponin I assay greater than 0.014 ng/mL (mcg/L), BNP or NT proBNP > assay threshold)5,8,9 [ ]XX. Known clotting abn or def (eg, liver disease, antithrombin III, protein C, or protein S abnormality) [ ]XXI. History of heparin-induced thrombocytopenia [ ]XXII. Inpatient admission required rather than observation care (Also use Pulmonary Embolism: Observation Care guideline as appropriate) because of ANY ONE of the following: [ ] a) Significant autoimmune (thrombocytopenia) or coagulopathic reaction occurs in response to anticoagulation [ ] b) Respiratory symptoms (eg, tachypnea, dyspnea) that are severe or persistent [ ] c) Other condition, treatment, or monitoring requiring inpatient admission Extended stay beyond goal length of stay may be needed for 3,28 [ ]a) Hemorrhage or recent surgery [ ]b) Recurrent thromboembolism [ ]c) Persistent hypoxemia [ ]d) Heparin-induced thrombocytopenia The original [facility] [employer] content created by [facility] [facility] [employer] has been revised. The portions of the content which have been revised are identified through the use of italic text or in bold, and [facility] has neither reviewed nor approved the modified material. All other unmodified content is copyright [facility] [employer]Penemarie K Murphy. Please see references footnoted in the original [facility] edition 2016 Admission Criteria Met: Yes
[2016-11-27 13:54] LABS: Anisocytosis 1+; Basophils % (Manual) 0 % (0.0-1.8); Blastocytes % (Manual) 0 %; Eosinophils % (Manual) 0 % (0.0-4.3)
[2016-11-27 13:55] LABS: Diff Status Complete
--- NOTE | 2016-11-27 14:08 | Progress Note ---
Assessment and Plan Technically still remains somewhat hemodynamically unstable as he is still tachycardic and on the Levophed although he appears much more comfortable and is requiring less pressor support. Continue the lysis catheter an additional 12 hours restudy him tomorrow. Possible clot extraction may be performed if necessary at that time Subjective Date of service: 11/27/16 Interval history: He is no longer short of breath. Discomfort in his back and needs his previous pain treatment protocol that was successful while he was on the LTAC. Remains on Levophed but blood pressure is stable. Still tachycardic Objective - Exam Narrative Exam: Respiratory status appears stable. Breathing is not labored. Speech normal. Right leg is without swelling no bleeding in the groin. This catheter still infusing - Constitutional Vitals: Vital Signs - 12hr 11/27/16 11/27/16 11/27/16 02:36 05:10 05:24 Temperature Pulse Rate 108 H Respiratory 21 22 Rate Blood Pressure 96/69 96/69 O2 Sat by Pulse 95 Oximetry 11/27/16 11/27/16 11/27/16 05:27 05:35 05:57 Temperature 98.0 F Pulse Rate Respiratory 24 22 Rate Blood Pressure O2 Sat by Pulse 98 Oximetry 11/27/16 11/27/16 11/27/16 06:00 06:24 06:36 Temperature Pulse Rate 126 H 126 H 126 H Respiratory 25 H 25 H 20 Rate Blood Pressure 118/78 104/66 109/70 O2 Sat by Pulse 96 94 96 Oximetry 11/27/16 11/27/16 11/27/16 07:00 08:00 08:34 Temperature Pulse Rate 126 H 124 H 120 H Respiratory 27 H 21 27 H Rate Blood Pressure 103/75 106/66 112/78 O2 Sat by Pulse 92 95 94 Oximetry 11/27/16 11/27/16 11/27/16 09:00 10:00 11:00 Temperature Pulse Rate 118 H 119 H 117 H Respiratory 27 H 21 25 H Rate Blood Pressure 116/81 110/76 118/69 O2 Sat by Pulse 96 92 93 Oximetry 11/27/16 12:00 Temperature Pulse Rate 116 H Respiratory 28 H Rate Blood Pressure 98/75 O2 Sat by Pulse 93 Oximetry - Labs CBC & Chem 7: 11/27/16 09:45 11/27/16 06:20 Labs: Abnormal lab results 11/27/16 11/27/16 11/27/16 Range/Units 02:04 02:24 02:58 WBC 11.1 H (4.5-11.0) K/mm3 Hgb 11.6 L (11.8-15.2) gm/dl Hct (35.5-45.6) % MCV 83 L (84-94) fl MCH 26 L (28-32) pg MCHC 31 L (32-34) % RDW 17.0 H (13.2-15.2) % Plt Count (140-440) K/mm3 Seg Neuts % (Manual) (40.0-70.0) % Lymphocytes % (Manual) (13.4-35.0) % Monocytes % (Manual) 15.0 H (0.0-7.3) % Seg Neutrophils # Man (1.8-7.7) K/mm3 Lymphocytes # (Manual) (1.2-5.4) K/mm3 Monocytes # (Manual) 1.7 H (0.0-0.8) K/mm3 PT (12.2-14.9) Sec. INR (0.87-1.13) APTT (24.2-36.6) Sec. Fibrinogen (211-480) mg/dl Heparin Anti-Xa Level (0.3-0.7) U.I./ml Sodium 133 L (137-145) mmol/L Chloride 96.4 L (98-107) mmol/L Carbon Dioxide 16 L D (22-30) mmol/L BUN 23 H (9-20) mg/dL Creatinine 0.5 L D (0.8-1.5) mg/dL Glucose 214 H (75-100) mg/dL POC Glucose 211 H (70-105) 11/27/16 11/27/16 11/27/16 Range/Units 02:58 06:20 06:20 WBC 13.2 H (4.5-11.0) K/mm3 Hgb 11.1 L (11.8-15.2) gm/dl Hct (35.5-45.6) % MCV 82 L (84-94) fl MCH 26 L (28-32) pg MCHC 31 L (32-34) % RDW 16.9 H (13.2-15.2) % Plt Count 472 H (140-440) K/mm3 Seg Neuts % (Manual) 82.0 H (40.0-70.0) % Lymphocytes % (Manual) 6.0 L (13.4-35.0) % Monocytes % (Manual) 9.0 H (0.0-7.3) % Seg Neutrophils # Man 10.8 H (1.8-7.7) K/mm3 Lymphocytes # (Manual) 0.8 L (1.2-5.4) K/mm3 Monocytes # (Manual) 1.2 H (0.0-0.8) K/mm3 PT 15.9 H 18.5 H (12.2-14.9) Sec. INR 1.28 H 1.54 H (0.87-1.13) APTT 46.2 H (24.2-36.6) Sec. Fibrinogen 603 H (211-480) mg/dl Heparin Anti-Xa Level (0.3-0.7) U.I./ml Sodium (137-145) mmol/L Chloride (98-107) mmol/L Carbon Dioxide (22-30) mmol/L BUN (9-20) mg/dL Creatinine (0.8-1.5) mg/dL Glucose (75-100) mg/dL POC Glucose (70-105) 11/27/16 11/27/16 11/27/16 Range/Units 06:20 06:20 09:45 WBC 11.6 H (4.5-11.0) K/mm3 Hgb 11.2 L (11.8-15.2) gm/dl Hct 34.5 L (35.5-45.6) % MCV 81 L (84-94) fl MCH 26 L (28-32) pg MCHC (32-34) % RDW 17.0 H (13.2-15.2) % Plt Count (140-440) K/mm3 Seg Neuts % (Manual) 85.0 H (40.0-70.0) % Lymphocytes % (Manual) 3.0 L (13.4-35.0) % Monocytes % (Manual) (0.0-7.3) % Seg Neutrophils # Man 9.9 H (1.8-7.7) K/mm3 Lymphocytes # (Manual) 0.3 L (1.2-5.4) K/mm3 Monocytes # (Manual) (0.0-0.8) K/mm3 PT (12.2-14.9) Sec. INR (0.87-1.13) APTT (24.2-36.6) Sec. Fibrinogen (211-480) mg/dl Heparin Anti-Xa Level 0.99 H (0.3-0.7) U.I./ml Sodium 136 L (137-145) mmol/L Chloride 96.6 L (98-107) mmol/L Carbon Dioxide 17 L (22-30) mmol/L BUN 23 H (9-20) mg/dL Creatinine 0.6 L (0.8-1.5) mg/dL Glucose 223 H (75-100) mg/dL POC Glucose (70-105)
[2016-11-27] MEDS ORDERED: NACL 0.9% 1000 ML 1,000 ML SHEATH SCH ×2 (16:00)
[2016-11-27] MEDS ORDERED: CATHFLO EKOSDLUMEN SCH (16:00)
[2016-11-27] MEDS ORDERED: NACL 0.9% EKOSDLUMEN SCH (16:00)
[2016-11-27 17:13] LABS: Hematocrit 33.2 % (35.5-45.6); Hemoglobin 10.9 gm/dl (11.8-15.2); Mean Corpuscular HGB Conc 33 % (32-34); Mean Corpuscular Hemoglobin 27 pg (28-32); Mean Corpuscular Volume 81 fl (84-94); Platelet Count 336 K/mm3 (140-440); Red Cell Distribution Width 16.9 % (13.2-15.2); White Blood Count 9.6 K/mm3 (4.5-11.0)
[2016-11-27 18:27] LABS: Basophils % (Manual) 0 % (0.0-1.8); Blastocytes % (Manual) 0 %; Eosinophils % (Manual) 0 % (0.0-4.3)
[2016-11-27 18:28] LABS: Anisocytosis 1+; Diff Status Complete; Platelet Estimate Consistent w Auto
--- NOTE | 2016-11-27 18:45 | Consultation ---
History of Present Illness Consult date: 11/27/16 Reason for consult: dyspnea, pulmonary embolism, other (hypertension) History of present illness: Called to evaluate case of a 36-year-old male admitted to the ICU yesterday night, with history of acute PE. The patient is currently slightly sedated history is limited and chart was reviewed in detail. Briefly, he was treated for a psoas abscess in [facility] with accompanying her medical course including "hypertension, diabetes, obesity, chronic pain was transfer from [facility] to [facility] on the sixth floor. Patient was diagnosed with sepsis secondary to pneumonia, psoas abscess, MSSA bacteremia. He was in respiratory failure, he was trached. While on LTAC, the patient was tachycardic, CAT scan was done which shows extensive bilateral pulmonary emboli in the saddle emboli. The patient was started on heparin drip. He was then transferred to the ICU for further care. Patient has been hypotensive". Because of ongoing hemodynamic changes and need for pressors, intubation or vascular service was called. The patient was taken this morning to the Lab and he underwent bilateral EKOS catheter placement. He underwent intravascular thrombolysis and possible back to the ICU. Currently a bedside assessment blood pressure is 143/93, Heart rate of 113. No active bleeding or focal neurological defects noted. Movement be minimized due to catheter placement. Gibson with the Doppler and echocardiogram also deferred for the moment for the same reason. Pulmonary called to evaluate, were notified now after consult problem notified incorrectly earlier this morning. Past History Past Medical History: diabetes, hypertension, other (pneumonia, sepsis) Past Surgical History: Other (s/p trach) Social history: other (chews tobacco). denies: alcohol abuse Family history: diabetes Medications and Allergies Allergies Allergy/AdvReac Type Severity Reaction Status Date / Time gentamicin Allergy Unknown Verified 11/27/16 02:31 neomycin Allergy Unknown Verified 11/27/16 02:31 Active Meds: Active Medications Acetaminophen (Tylenol) 650 mg PO Q6H PRN PRN Reason: Pain MILD(1-3)/Fever >100.5/MONSIVAIS Acetaminophen/Hydrocodone Bitart ([place] 5/325) 2 each PO Q6H PRN PRN Reason: Pain, Moderate (4-6) Last Admin: 11/27/16 10:17 Dose: 2 each Al Hydrox/Mg Hydrox/Simethicone (Alum-Mag Hydrox-Simeth [id number]/5ml) 30 ml PO Q4H PRN PRN Reason: Indigestion Alprazolam (Xanax) 0.25 mg PO Q6H PRN PRN Reason: Anxiety Dextrose (D50w (25gm)) 50 ml IV PRN PRN PRN Reason: Hypoglycemia Piperacillin Sod/Tazobactam Sod (Zosyn/Ns 3.375gm/50ml) 50 mls @ 100 mls/hr IV Q8HR BISHOP Last Admin: 11/27/16 15:00 Dose: 100 mls/hr Norepinephrine (Levophed Drip 4 Mg/Ns 250 Ml) 250 mls @ 7.5 mls/hr IV TITR BISHOP ; 2 MCG/MIN PRN Reason: Protocol Last Admin: 11/27/16 13:00 Dose: 18.75 mls/hr Heparin Sodium/Sodium Chloride (Heparin/ 0.45% Nacl-25,000 Unit/500 Ml) 500 mls @ 10 mls/hr IV DIRECT BISHOP PRN Reason: 500 UNITS/HR Sodium Chloride (Nacl 0.9% 1000 Ml) 1,000 mls @ 35 mls/hr IV DIRECT BISHOP Last Admin: 11/27/16 05:35 Dose: 35 mls/hr Heparin Sodium/Sodium Chloride (Heparin/ 0.45% Nacl-25,000 Unit/500 Ml) 500 mls @ 30 mls/hr IV TITR BISHOP; 1,500 UNITS/HR PRN Reason: Protocol Last Admin: 11/27/16 10:58 Dose: 30 mls/hr Sodium Chloride (Nacl 0.9% 1000 Ml) 1,000 mls @ 30 mls/hr SHEATH DIRECT BISHOP Alteplase, Recombinant 10 mg/ (Sodium Chloride) 250 mls @ 12.5 mls/hr EKOSDLUMEN DIRECT BISHOP PRN Reason: 0.5 MG/HR Alteplase, Recombinant 10 mg/ (Sodium Chloride) 250 mls @ 12.5 mls/hr EKOSDLUMEN DIRECT BISHOP PRN Reason: 0.5 MG/HR Sodium Chloride (Nacl 0.9% 1000 Ml) 1,000 mls @ 30 mls/hr SHEATH DIRECT BISHOP Insulin Aspart (Novolog) 0 units SUB-Q ACHS BISHOP PRN Reason: Protocol Last Admin: 11/27/16 17:48 Dose: 4 units Lorazepam (Ativan) 1 mg IV Q4H PRN PRN Reason: sedation Magnesium Hydroxide (Milk Of Magnesia) 30 ml PO Q4H PRN PRN Reason: Constipation Methadone HCl (Dolophine) 20 mg PO DAILY BISHOP Morphine Sulfate (Morphine) 2 mg IV Q4H PRN PRN Reason: Pain, Moderate (4-6) Last Admin: 11/27/16 05:27 Dose: 2 mg Morphine Sulfate (Morphine) 4 mg IV Q4H PRN PRN Reason: Pain , Severe (7-10) Last Admin: 11/27/16 12:20 Dose: 4 mg Ondansetron HCl (Zofran) 4 mg IV Q4H PRN PRN Reason: N/V unrelieved by Reglan Last Admin: 11/27/16 09:21 Dose: 4 mg Oxycodone HCl (Roxicodone) 5 mg PO Q4H PRN PRN Reason: Pain, Moderate (4-6) Oxycodone/Acetaminophen (Percocet 5/325) 1 tab PO Q4H PRN PRN Reason: Pain, Moderate (4-6) Physical Examination Vital signs: Vital Signs Pulse Resp 120 H 17 11/27/16 00:36 11/27/16 00:36 General appearance: no acute distress, asleep, other (morbidly obese, snoring loudly, arousable (already had an Ativan)) Eyes: non-icteric ENT: other (crowded oropharynx) Neck: supple, no lymphadenopathy Effort: normal Ascultation: Bilateral: clear Gastrointestinal: normoactive bowel sounds, non-distended Integumentary: normal Extremities: pulses normal, no ischemia or petechiae, other (femoral catheters in place) other (RA SS -1) Results - Laboratory Findings CBC and BMP: 11/27/16 17:00 11/27/16 06:20 PT/INR, D-dimer PT 18.5 Sec. (12.2-14.9) H 11/27/16 06:20 INR 1.54 (0.87-1.13) H 11/27/16 06:20 Abnormal lab findings: Abnormal Labs 11/27/16 11/27/16 11/27/16 02:04 02:24 02:58 WBC 11.1 H Hgb 11.6 L Hct MCV 83 L MCH 26 L MCHC 31 L RDW 17.0 H Plt Count Seg Neuts % (Manual) Lymphocytes % (Manual) Monocytes % (Manual) 15.0 H Seg Neutrophils # Man Lymphocytes # (Manual) Monocytes # (Manual) 1.7 H PT INR APTT Fibrinogen Heparin Anti-Xa Level Sodium 133 L Chloride 96.4 L Carbon Dioxide 16 L D BUN 23 H Creatinine 0.5 L D Glucose 214 H POC Glucose 211 H 11/27/16 11/27/16 11/27/16 02:58 06:20 06:20 WBC 13.2 H Hgb 11.1 L Hct MCV 82 L MCH 26 L MCHC 31 L RDW 16.9 H Plt Count 472 H Seg Neuts % (Manual) 82.0 H Lymphocytes % (Manual) 6.0 L Monocytes % (Manual) 9.0 H Seg Neutrophils # Man 10.8 H Lymphocytes # (Manual) 0.8 L Monocytes # (Manual) 1.2 H PT 15.9 H 18.5 H INR 1.28 H 1.54 H APTT 46.2 H Fibrinogen 603 H Heparin Anti-Xa Level Sodium Chloride Carbon Dioxide BUN Creatinine Glucose POC Glucose 11/27/16 11/27/16 11/27/16 06:20 06:20 09:45 WBC 11.6 H Hgb 11.2 L Hct 34.5 L MCV 81 L MCH 26 L MCHC RDW 17.0 H Plt Count Seg Neuts % (Manual) 85.0 H Lymphocytes % (Manual) 3.0 L Monocytes % (Manual) Seg Neutrophils # Man 9.9 H Lymphocytes # (Manual) 0.3 L Monocytes # (Manual) PT INR APTT Fibrinogen Heparin Anti-Xa Level 0.99 H Sodium 136 L Chloride 96.6 L Carbon Dioxide 17 L BUN 23 H Creatinine 0.6 L Glucose 223 H POC Glucose 11/27/16 11/27/16 11/27/16 15:01 17:00 17:00 WBC Hgb 10.9 L Hct 33.2 L MCV 81 L MCH 27 L MCHC RDW 16.9 H Plt Count Seg Neuts % (Manual) 80.0 H Lymphocytes % (Manual) 9.0 L Monocytes % (Manual) 9.0 H Seg Neutrophils # Man Lymphocytes # (Manual) 0.9 L Monocytes # (Manual) 0.9 H PT INR APTT Fibrinogen 533 H Heparin Anti-Xa Level 0.81 H Sodium Chloride Carbon Dioxide BUN Creatinine Glucose POC Glucose 254 H - Diagnostic Findings CT scan - chest: report reviewed, image reviewed Assessment and Plan Massive pulmonary embolism. Hemodynamically compromised status post what appears to be successful EKOS catheter placement/DPA Hypertension. Controlled Psoas abscess LIVAN. Strongly suspect that on clinical grounds Status post respiratory failure, per history Severe morbid obesity Recommendations Follow-up vascular surgery orders regarding EKOS directed therapy Currently off Levophed. Monitor for hypotension. Caution was advised and discussed with nursing, regarding benzodiazepine use. He had severe LIVAN, he might be particularly susceptible to this drugs and I will minimize or limit use if possible. Recommend doing an echocardiogram and a lower extremity venous Doppler, once all vascular catheters had been removed. Will follow-up from pulmonary standpoint. Critical care time in case review with staff and coordination of care, 40 minutes. No family members available during rounds for case discussion
[2016-11-27] MEDS: ATIVAN IV PRN (19:41)
[2016-11-27 23:12] LABS: Basophils % (Auto) 0.3 % (0.0-1.8); Hematocrit 30.4 % (35.5-45.6); Mean Corpuscular HGB Conc 33 % (32-34); Mean Corpuscular Hemoglobin 27 pg (28-32); Mean Corpuscular Volume 82 fl (84-94); Platelet Count 265 K/mm3 (140-440); Red Blood Count 3.73 M/mm3 (3.65-5.03); White Blood Count 7.5 K/mm3 (4.5-11.0)
[2016-11-28] MEDS ORDERED: ACD-A IV ONE (00:24)
[2016-11-28 05:57] LABS: Basophils % (Auto) 0.5 % (0.0-1.8); Eosinophils % (Auto) 0.1 % (0.0-4.3); Hemoglobin 9.8 gm/dl (11.8-15.2); Mean Corpuscular HGB Conc 33 % (32-34); Mean Corpuscular Hemoglobin 27 pg (28-32); Mean Corpuscular Volume 82 fl (84-94); Platelet Count 235 K/mm3 (140-440); Red Blood Count 3.68 M/mm3 (3.65-5.03); Red Cell Distribution Width 17.1 % (13.2-15.2); White Blood Count 6.5 K/mm3 (4.5-11.0)
[2016-11-28 06:05] LABS: INR 1.67 (0.87-1.13)
[2016-11-28 06:10] LABS: Partial Thromboplastin Time 125.9 Sec. (24.2-36.6)
[2016-11-28 06:14] LABS: Anion Gap 20 mmol/L; Blood Urea Nitrogen 20 mg/dL (9-20); Calcium 8.3 mg/dL (8.4-10.2); Carbon Dioxide 17 mmol/L (22-30); Chloride 107.3 mmol/L (98-107); Glucose 164 mg/dL (75-100); Potassium 3.6 mmol/L (3.6-5.0); Sodium 141 mmol/L (137-145)
[2016-11-28] MEDS: NACL 0.9% 1000 ML 1,000 ML IV SCH (06:19)
[2016-11-28] MEDS: ZOSYN/NS 3.375GM/50ML 50 ML IV SCH ×2 (06:20→20:48)
--- NOTE | 2016-11-28 09:05 | Progress Note ---
Assessment and Plan Assessment and plan: 1. Extensive bilateral pulmonary emboli with saddle emboli. Patient is status post bilateral EKOS catheter placement. Continue per interventional radiology. Patient for removal of catheters this morning. Continue anticoagulation and monitor closely. 2. Psoas abscess. Continue current antibiotics. ID consultation. 3. Hypotension secondary to pulmonary emboli. Resolving. Patient currently off Levophed. 4. Diabetes type 2. Continue sliding-scale insulin and Accu-Cheks. 1800 ADA diet. 5. Obesity 6. Acute hypoxic respiratory failure. Etiology secondary to #1. Continue supportive care. The high probability of a clinically significant, sudden or life threatening deterioration of the [respiratory] system(s) required my full and direct attention, intervention and personal management. The aggregate critical care time was [31] minutes. This time is in addition to time spent performing reported procedures but includes the following: [x] Data Review and interpretation [x] Patient assessment and monitoring of vital signs [x] Documentation [x] Medication orders and management History Interval history: 36-year-old man with a history of hypertension, diabetes, obesity, chronic pain was transfer from [facility] to [facility] on the sixth floor. Patient was diagnosed with sepsis secondary to pneumonia, psoas abscess, MSSA bacteremia. He was in respiratory failure, he was trached. While on LTAC, the patient was tachycardic, CAT scan was done which shows extensive bilateral pulmonary emboli in the saddle emboli. The patient was started on heparin drip. He was then transferred to the ICU for further care. Patient had successful placement of bilateral EKOS catheters into the pulmonary arteries with angiographic confirmation. No new issues overnight. Hospitalist Physical - Constitutional Vitals: Temp Pulse Resp BP Pulse Ox 97.4 F L 118 H 32 H 116/80 94 11/28/16 08:00 11/27/16 23:35 11/27/16 23:35 11/27/16 23:35 11/28/16 07:23 General appearance: Present: no acute distress - EENT Eyes: Present: PERRL, EOM intact ENT: hearing intact, clear oral mucosa, dentition normal - Neck Neck: Present: supple, normal ROM - Respiratory Respiratory effort: normal Respiratory: bilateral: diminished - Cardiovascular Rhythm: regular Heart Sounds: Present: S1 & S2. Absent: gallop, rub - Extremities Extremities: no ischemia, No edema, Full ROM - Abdominal General gastrointestinal: soft, non-tender, non-distended, normal bowel sounds - Integumentary Integumentary: Present: clear, warm, dry - Neurologic Neurologic: CNII-XII intact, moves all extremities Results - Labs CBC & Chem 7: 11/28/16 05:00 11/28/16 05:00 Labs: Laboratory Last Values WBC 6.5 K/mm3 (4.5-11.0) 11/28/16 05:00 RBC 3.68 M/mm3 (3.65-5.03) 11/28/16 05:00 Hgb 9.8 gm/dl (11.8-15.2) L 11/28/16 05:00 Hct 30.0 % (35.5-45.6) L 11/28/16 05:00 MCV 82 fl (84-94) L 11/28/16 05:00 MCH 27 pg (28-32) L 11/28/16 05:00 MCHC 33 % (32-34) 11/28/16 05:00 RDW 17.1 % (13.2-15.2) H 11/28/16 05:00 Plt Count 235 K/mm3 (140-440) 11/28/16 05:00 Lymph % (Auto) 16.6 % (13.4-35.0) 11/28/16 05:00 [place] % (Auto) 7.7 % (0.0-7.3) H 11/28/16 05:00 Eos % (Auto) 0.1 % (0.0-4.3) 11/28/16 05:00 Baso % (Auto) 0.5 % (0.0-1.8) 11/28/16 05:00 Lymph # 1.1 K/mm3 (1.2-5.4) L 11/28/16 05:00 [place] # 0.5 K/mm3 (0.0-0.8) 11/28/16 05:00 Eos # 0.0 K/mm3 (0.0-0.4) 11/28/16 05:00 Baso # 0.0 K/mm3 (0.0-0.1) 11/28/16 05:00 Add Manual Diff Complete 11/27/16 17:00 Total Counted 100 11/27/16 17:00 Seg Neutrophils % 75.1 % (40.0-70.0) H 11/28/16 05:00 Seg Neuts % (Manual) 80.0 % (40.0-70.0) H 11/27/16 17:00 Band Neutrophils % 0 % 11/27/16 17:00 Lymphocytes % (Manual) 9.0 % (13.4-35.0) L 11/27/16 17:00 Reactive Lymphs % (Man) 0 % 11/27/16 17:00 Monocytes % (Manual) 9.0 % (0.0-7.3) H 11/27/16 17:00 Eosinophils % (Manual) 0 % (0.0-4.3) 11/27/16 17:00 Basophils % (Manual) 0 % (0.0-1.8) 11/27/16 17:00 Metamyelocytes % 2.0 % 11/27/16 17:00 Myelocytes % 0 % 11/27/16 17:00 Promyelocytes % 0 % 11/27/16 17:00 Blast Cells % 0 % 11/27/16 17:00 Nucleated RBC % Not Reportable 11/27/16 17:00 Seg Neutrophils # 4.9 K/mm3 (1.8-7.7) 11/28/16 05:00 Seg Neutrophils # Man 7.7 K/mm3 (1.8-7.7) 11/27/16 17:00 Band Neutrophils # 0.0 K/mm3 11/27/16 17:00 Lymphocytes # (Manual) 0.9 K/mm3 (1.2-5.4) L 11/27/16 17:00 Abs React Lymphs (Man) 0.0 K/mm3 11/27/16 17:00 Monocytes # (Manual) 0.9 K/mm3 (0.0-0.8) H 11/27/16 17:00 Eosinophils # (Manual) 0.0 K/mm3 (0.0-0.4) 11/27/16 17:00 Basophils # (Manual) 0.0 K/mm3 (0.0-0.1) 11/27/16 17:00 Metamyelocytes # 0.2 K/mm3 11/27/16 17:00 Myelocytes # 0.0 K/mm3 11/27/16 17:00 Promyelocytes # 0.0 K/mm3 11/27/16 17:00 Blast Cells # 0.0 K/mm3 11/27/16 17:00 WBC Morphology Not Reportable 11/27/16 17:00 Hypersegmented Neuts Not Reportable 11/27/16 17:00 Hyposegmented Neuts Not Reportable 11/27/16 17:00 Hypogranular Neuts Not Reportable 11/27/16 17:00 Smudge Cells Not Reportable 11/27/16 17:00 Toxic Granulation Not Reportable 11/27/16 17:00 Toxic Vacuolation Not Reportable 11/27/16 17:00 Dohle Bodies Not Reportable 11/27/16 17:00 Pelger-Huet Anomaly Not Reportable 11/27/16 17:00 Mati Rods Not Reportable 11/27/16 17:00 Platelet Estimate Consistent w auto 11/27/16 17:00 Clumped Platelets Not Reportable 11/27/16 17:00 Plt Clumps, EDTA Not Reportable 11/27/16 17:00 Large Platelets Not Reportable 11/27/16 17:00 Giant Platelets Not Reportable 11/27/16 17:00 Platelet Satelliting Not Reportable 11/27/16 17:00 Plt Morphology Comment Not Reportable 11/27/16 17:00 RBC Morphology Not Reportable 11/27/16 17:00 Dimorphic RBCs Not Reportable 11/27/16 17:00 Polychromasia Not Reportable 11/27/16 17:00 Hypochromasia Not Reportable 11/27/16 17:00 Poikilocytosis Not Reportable 11/27/16 17:00 Anisocytosis 1+ 11/27/16 17:00 Microcytosis Not Reportable 11/27/16 17:00 Macrocytosis Not Reportable 11/27/16 17:00 Spherocytes Not Reportable 11/27/16 17:00 Pappenheimer Bodies Not Reportable 11/27/16 17:00 Sickle Cells Not Reportable 11/27/16 17:00 Target Cells Not Reportable 11/27/16 17:00 Tear Drop Cells Not Reportable 11/27/16 17:00 Ovalocytes Not Reportable 11/27/16 17:00 Helmet Cells Not Reportable 11/27/16 17:00 [place] Bodies Not Reportable 11/27/16 17:00 [place] Rings Not Reportable 11/27/16 17:00 [place] Cells Not Reportable 11/27/16 17:00 Bite Cells Not Reportable 11/27/16 17:00 Crenated Cell Not Reportable 11/27/16 17:00 Elliptocytes Not Reportable 11/27/16 17:00 Acanthocytes (Spur) Not Reportable 11/27/16 17:00 Rouleaux Not Reportable 11/27/16 17:00 Hemoglobin C Crystals Not Reportable 11/27/16 17:00 Schistocytes Not Reportable 11/27/16 17:00 Malaria parasites Not Reportable 11/27/16 17:00 Michael Bodies Not Reportable 11/27/16 17:00 Hem Pathologist Commnt No 11/27/16 17:00 PT 19.7 Sec. (12.2-14.9) H 11/28/16 05:00 INR 1.67 (0.87-1.13) H 11/28/16 05:00 APTT 125.9 Sec. (24.2-36.6) H* 11/28/16 05:00 Fibrinogen 474 mg/dl (211-480) 11/27/16 23:00 Heparin Anti-Xa Level 0.60 U.I./ml (0.3-0.7) 11/27/16 23:00 Sodium 141 mmol/L (137-145) 11/28/16 05:00 Potassium 3.6 mmol/L (3.6-5.0) 11/28/16 05:00 Chloride 107.3 mmol/L (98-107) H 11/28/16 05:00 Carbon Dioxide 17 mmol/L (22-30) L 11/28/16 05:00 Anion Gap 20 mmol/L 11/28/16 05:00 BUN 20 mg/dL (9-20) 11/28/16 05:00 Creatinine 0.4 mg/dL (0.8-1.5) L 11/28/16 05:00 Estimated GFR > 60 ml/min 11/28/16 05:00 BUN/Creatinine Ratio 50.00 % 11/28/16 05:00 Glucose 164 mg/dL (75-100) H 11/28/16 05:00 POC Glucose 199 (70-105) H 11/27/16 22:30 Calcium 8.3 mg/dL (8.4-10.2) L 11/28/16 05:00 Blood Type O POSITIVE 11/27/16 02:58 Antibody Screen Negative 11/27/16 02:58
[2016-11-28] MEDS: DOLOPHINE PO SCH ×2 (09:32→10:30)
[2016-11-28] MEDS: XANAX PO PRN (09:37)
[2016-11-28] MEDS ORDERED: ZOFRAN ONE (10:37)
[2016-11-28] MEDS ORDERED: HEPARIN/NS 5000 UNIT/500ML(CATH LAB) 500 ML IR ONE ×2 (10:43→11:53)
[2016-11-28] MEDS ORDERED: NACL 0.9% 500 ML 500 ML ONE (10:44)
[2016-11-28] MEDS ORDERED: XYLOCAINE 1%/ EPI 1:100,000 INFILTRATI ONE (10:44)
--- NOTE | 2016-11-28 10:53 | Progress Note ---
Assessment and Plan Massive pulmonary embolism. Hemodynamically compromised status post what appears to be successful EKOS catheter placement/DPA Hypertension. Controlled Psoas abscess LIVAN. Strongly suspect that on clinical grounds. He did have problems with breathing last night and BiPAP have to be started briefly. The patient rejected treatment once she was more awake. All sedatives were stopped for this reason Status post respiratory failure, per history Severe morbid obesity Recommendations Discussed with vascular surgery at the bedside. He will be taken to the label coder for additional removal placement of a temporary IVC filter Monitor hemodynamic I discussed my concerns with LIVAN and precautions with sedation due to patient respiratory behavior, LIVAN last night. BiPAP will be available during procedure and after procedure, discussed as part of the treatment plan. Will continue respiratory monitoring closely when he is back in the unit Caution was advised and discussed with nursing, regarding benzodiazepine use. This also should include opiates and if needed I will use the shortest acting agent and minimum effective os. Recommend doing an echocardiogram and a lower extremity venous Doppler, once all vascular catheters had been removed. Critical care time in case review with staff and coordination of care, 31 minutes. Family members present during rounds for case discussion Subjective Date of service: 11/28/16 Interval history: No breathing problems at this time. Objective Vital Signs - 12hr 11/27/16 11/27/16 11/28/16 23:35 23:55 03:53 Temperature 98.7 F 99.1 F Pulse Rate 118 H Respiratory 32 H Rate Blood Pressure 116/80 O2 Sat by Pulse 98 Oximetry 11/28/16 11/28/16 11/28/16 04:48 07:23 08:00 Temperature 97.4 F L Pulse Rate Respiratory Rate Blood Pressure O2 Sat by Pulse 94 94 93 Oximetry Constitutional: no acute distress, alert, other (morbidly obese, snoring loudly , arousable (already had an Ativan)) Eyes: non-icteric Neck: supple, no JVD Effort: normal Ascultation: Bilateral: clear Gastrointestinal: normoactive bowel sounds, non-distended Integumentary: normal Extremities: pulses normal, no ischemia or petechiae, other (femoral catheters in place) Neurologic: normal mental status, non-focal exam CBC and BMP: 11/28/16 05:00 11/28/16 05:00 ABG, PT/INR, D-dimer: PT/INR, D-dimer PT 19.7 Sec. (12.2-14.9) H 11/28/16 05:00 INR 1.67 (0.87-1.13) H 11/28/16 05:00 Abnormal lab findings: Abnormal Labs 11/27/16 11/27/16 11/27/16 02:04 02:24 02:58 WBC 11.1 H Hgb 11.6 L Hct MCV 83 L MCH 26 L MCHC 31 L RDW 17.0 H Plt Count [place] % (Auto) Lymph # Seg Neutrophils % Seg Neuts % (Manual) Lymphocytes % (Manual) Monocytes % (Manual) 15.0 H Seg Neutrophils # Man Lymphocytes # (Manual) Monocytes # (Manual) 1.7 H PT INR APTT Fibrinogen Heparin Anti-Xa Level Sodium 133 L Chloride 96.4 L Carbon Dioxide 16 L D BUN 23 H Creatinine 0.5 L D Glucose 214 H POC Glucose 211 H Calcium 11/27/16 11/27/16 11/27/16 02:58 06:20 06:20 WBC 13.2 H Hgb 11.1 L Hct MCV 82 L MCH 26 L MCHC 31 L RDW 16.9 H Plt Count 472 H [place] % (Auto) Lymph # Seg Neutrophils % Seg Neuts % (Manual) 82.0 H Lymphocytes % (Manual) 6.0 L Monocytes % (Manual) 9.0 H Seg Neutrophils # Man 10.8 H Lymphocytes # (Manual) 0.8 L Monocytes # (Manual) 1.2 H PT 15.9 H 18.5 H INR 1.28 H 1.54 H APTT 46.2 H Fibrinogen 603 H Heparin Anti-Xa Level Sodium Chloride Carbon Dioxide BUN Creatinine Glucose POC Glucose Calcium 11/27/16 11/27/16 11/27/16 06:20 06:20 09:45 WBC 11.6 H Hgb 11.2 L Hct 34.5 L MCV 81 L MCH 26 L MCHC RDW 17.0 H Plt Count [place] % (Auto) Lymph # Seg Neutrophils % Seg Neuts % (Manual) 85.0 H Lymphocytes % (Manual) 3.0 L Monocytes % (Manual) Seg Neutrophils # Man 9.9 H Lymphocytes # (Manual) 0.3 L Monocytes # (Manual) PT INR APTT Fibrinogen Heparin Anti-Xa Level 0.99 H Sodium 136 L Chloride 96.6 L Carbon Dioxide 17 L BUN 23 H Creatinine 0.6 L Glucose 223 H POC Glucose Calcium 11/27/16 11/27/16 11/27/16 15:01 17:00 17:00 WBC Hgb 10.9 L Hct 33.2 L MCV 81 L MCH 27 L MCHC RDW 16.9 H Plt Count [place] % (Auto) Lymph # Seg Neutrophils % Seg Neuts % (Manual) 80.0 H Lymphocytes % (Manual) 9.0 L Monocytes % (Manual) 9.0 H Seg Neutrophils # Man Lymphocytes # (Manual) 0.9 L Monocytes # (Manual) 0.9 H PT INR APTT Fibrinogen 533 H Heparin Anti-Xa Level 0.81 H Sodium Chloride Carbon Dioxide BUN Creatinine Glucose POC Glucose 254 H Calcium 11/27/16 11/27/16 11/27/16 17:41 22:30 23:00 WBC Hgb 10.0 L Hct 30.4 L MCV 82 L MCH 27 L MCHC RDW 17.0 H Plt Count [place] % (Auto) 8.2 H Lymph # Seg Neutrophils % 75.1 H Seg Neuts % (Manual) Lymphocytes % (Manual) Monocytes % (Manual) Seg Neutrophils # Man Lymphocytes # (Manual) Monocytes # (Manual) PT INR APTT Fibrinogen Heparin Anti-Xa Level Sodium Chloride Carbon Dioxide BUN Creatinine Glucose POC Glucose 242 H 199 H Calcium 11/28/16 11/28/16 11/28/16 05:00 05:00 05:00 WBC Hgb 9.8 L Hct 30.0 L MCV 82 L MCH 27 L MCHC RDW 17.1 H Plt Count [place] % (Auto) 7.7 H Lymph # 1.1 L Seg Neutrophils % 75.1 H Seg Neuts % (Manual) Lymphocytes % (Manual) Monocytes % (Manual) Seg Neutrophils # Man Lymphocytes # (Manual) Monocytes # (Manual) PT 19.7 H INR 1.67 H APTT 125.9 H* Fibrinogen Heparin Anti-Xa Level Sodium Chloride 107.3 H Carbon Dioxide 17 L BUN Creatinine 0.4 L Glucose 164 H POC Glucose Calcium 8.3 L
[2016-11-28] MEDS: HEPARIN 10,000 UNITS/10 ML ONE ×3 (11:04→12:35)
[2016-11-28] MEDS ORDERED: NACL 0.9% 100 ML ONE (12:04)
[2016-11-28] MEDS ORDERED: HEPARIN/ 0.45% NACL-25,000 UNIT/500 ML 500 ML ONE (12:23)
--- NOTE | 2016-11-28 13:00 | Operative Report ---
Operative Report Operative Report: EXAM: 1. Fluoroscopically guided removal of left lower lobe pulmonary artery thrombolytic catheter 2. Fluoroscopically guided removal of right lower lobe pulmonary artery thrombolytic catheter 3. Angiography of the main pulmonary artery with selection (clinical change) 4. Angiography of the right distal main pulmonary artery with selection ( clinical change) 5. Angiography of the left lower lobe pulmonary artery with selection ( clinical change) 6. 8 [place]ian penumbra indigo percutaneous mechanical thrombectomy of the left lower lobe pulmonary artery 7. 8 [place]ian penumbra indigo percutaneous mechanical thrombectomy of the left distal main pulmonary artery 8. Angiography of the right lower lobe pulmonary artery with selection ( clinical change) 9. 8 [place]ian penumbra indigo percutaneous mechanical thrombectomy of the right lower lobe and right middle lobe pulmonary artery 10. 8 [place]ian penumbra indigo percutaneous mechanical thrombectomy of the right distal main pulmonary artery 11. Selection of the IVC with venography 12. Fluoroscopic-guided placement of an infrarenal Smith retrievable IVC filter 13. Postplacement venography of the IVC DATE: 11/28/16 PRODUCTION TROUBLESHOOTER: MARÍA COHEN MD INDICATION: Massive pulmonary embolism status post prolonged thrombolytic therapy with thrombolytic catheter removal and plan for percutaneous thrombectomy and IVC filter placement MEDICATIONS: Please see nursing report for full details. DEVICES: 8 [place]ian penumbra indigo mechanical thrombectomy device Smith IVC retrievable filter Estimated blood loss: Penumbra device aspirated 800 mL of blood which was returned to the patient using Cell Saver technology CONTRAST: 170 mL of nonionic contrast PROCEDURE: Line risks, benefits, and alternatives were discussed with the patient and his father; written informed consent was obtained. The patient was brought in relatively stable condition to the cardiac catheterization technologist where his right groin sheath were prepped and draped in a sterile fashion. The patient was heparinized. Fluoroscopic evaluation of the catheters was performed demonstrating them in appropriate position. The thrombolytic catheter wires were then removed over Jang wires. 8 [place]ian 65 cm [place] destination was advanced over the wire, but the sheath was too short. This was exchanged for an 8 [place]ian 90 cm [place] destination which was then positioned in the main pulmonary artery. Digital angiography was performed demonstrating no saddle pulmonary embolism, but a large right distal main pulmonary embolism extending into the lobar and segmental branches of the right upper lobe. There are a few small nonocclusive emboli in the right middle lobe and right lower lobe in the lobar and segmental branches. I selected the right upper lobe pulmonary artery branches, but was unable to pass the 8 [place]ian penumbra device over the wire into this area. I then decided to treat the left side and then treat the right side. I then passed the sheath and the 8 [place]ian penumbra device into the left distal main pulmonary artery and the vessel was selected. Digital angiography was performed demonstrating some nonocclusive filling defects in the left lower lobar and segmental pulmonary arteries with a nonocclusive thrombus in the left distal main pulmonary artery. The left lower lobe pulmonary artery was then selected with the indigo thrombectomy device was advanced into the area and aspiration thrombectomy was performed. Angiography was performed, but the catheter flipped into a segmental branch. Digital angiography was repeated demonstrating clearance of the thrombus within the left lower lobar pulmonary artery. The device was then retracted into the left distal main pulmonary artery. Digital subtraction angiography demonstrated the distal nonocclusive thrombus in the left distal main pulmonary artery. Penumbra aspiration thrombectomy was then performed of left distal main pulmonary artery. Digital subtraction angiography demonstrated improvement, but a small amount of residual distal main thrombus. I determine intervention on this side was complete. I had aspirated approximately 400 mL of blood and decided to treat the right side in the right distal main pulmonary artery. Sheath wire and catheter were advanced into the right sided pulmonary artery. Digital angiography was performed in the right distal main pulmonary artery demonstrating the previously mentioned findings. Penumbra aspiration thrombectomy was then performed in the right lower lobar pulmonary artery and in the right middle lobe ulnar artery. Afterwards penumbra aspiration thrombectomy was performed in the right upper lobe lobar and bright distal main pulmonary artery digital subtraction angiography was then performed demonstrating removal of much of the lobar and segmental thrombus in the right middle and lower lobe, but a moderate amount of residual right distal main pulmonary emboli extending into the right upper lobe lobar pulmonary arteries. There was better flow into the right upper lobe pulmonary arteries. 400 mL of blood was aspirated at this time. Due to blood blood aspiration, did not went to perform further aspiration thrombectomy. Wires and catheters were removed. Digital subtraction angiography was performed in the IVC after the IVC was selected with the sheath. The table was locked. Digital subtraction venography was performed. Digital subtraction venography of the inferior vena cava demonstrates no evidence of inferior vena cava thrombus. The inferior vena cava is normal in size. Renal vein inflow is visualized. The inferior vena cava is adequate to accommodate an IVC filter. The sheath was removed over a 0.035 inch wire and the sheath was removed over the wire. The IVC filter sheath and introducer were advanced over the wire under direct fluoroscopic guidance. The wire and introducer were removed. The IVC filter deployment system was advanced through the sheath and properly positioned under fluoroscopic guidance. Bard Smith IVC filter is properly positioned, below the renal veins and above the iliocaval confluence. The IVC filter was deployed under direct fluoroscopic guidance. Venography was performed through the sheath to confirm position. The deployment system, and sheath were removed. Pressure was held until hemostasis was achieved. The patient was transferred from the angiography suite in stable condition. FINDINGS: Please see procedure note above. IMPRESSION: 1. Successful percutaneous mechanical thrombectomy of the right pulmonary artery and left pulmonary artery as detailed above. 2. Successful IVC filter placement 3. Successful selection of the bilateral pulmonary arteries with angiography ( clinical change).
--- NOTE | 2016-11-28 13:31 | Event Note ---
Date: 11/28/16 Successful EKOS catheter directed pulmonary artery thrombolytic therapy Successful percutaneous thrombectomy with residual thrombus in the right distal main extending into the right upper lobe. Successful IVC filter placement. Keep flat for 4 hrs. Keep pressure dressing on until tomorrow. On Heparin drip. EBL 800 mL from percutaneous thrombectomy with cellsaver reinfusion of blood Recommend once H&H stable, which may decline over the next few days due to re- equilibration from thrombectomy, to transition patient onto oral anticoagulant such as Eliquis.
--- NOTE | 2016-11-28 14:16 | Progress Note ---
Assessment and Plan Bilateral pulmonary emboli with saddle emboli s/p EKOS, per vascular await echo findings Hypotension wean levophed to maintain MAP > 65 Acute respiratory failure Diabetes Psoas abscess Await echo findings. The patient has been seen in conjunction with Dr. Morris who agrees with the assessment and plan of care. Subjective Date of service: 11/28/16 Principal diagnosis: saddle emboli Interval history: The patient is resting in bed. C/o back pain. Sinus tach on the monitor. Objective Last Vital Signs Temp 97.4 F L 11/28/16 08:00 Pulse 109 H 11/28/16 10:00 Resp 32 H 11/27/16 23:35 BP 116/80 11/27/16 23:35 Pulse Ox 93 11/28/16 08:00 - Physical Examination General: No Apparent Distress HEENT: Positive: Normocephaly, Mucus Membranes Moist Neck: Positive: neck supple, trachea midline Cardiac: Positive: Regular Rhythm, S1/S2, Tachycardia Lungs: Positive: Decreased Breath Sounds Neuro: Positive: Grossly Intact Abdomen: Positive: Soft, Active Bowel Sounds. Negative: Tender Skin: Positive: Clear. Negative: Rash Extremities: Present: normal. Absent: edema - Labs and Meds Coagulation 11/28/16 Range/Units 05:00 PT 19.7 H (12.2-14.9) Sec. INR 1.67 H (0.87-1.13) APTT 125.9 H* (24.2-36.6) Sec. CBC 11/27/16 11/27/16 11/28/16 Range/Units 17:00 23:00 05:00 WBC 9.6 7.5 6.5 (4.5-11.0) K/mm3 RBC 4.10 3.73 3.68 (3.65-5.03) M/mm3 Hgb 10.9 L 10.0 L 9.8 L (11.8-15.2) gm/dl Hct 33.2 L 30.4 L 30.0 L (35.5-45.6) % Plt Count 336 265 235 (140-440) K/mm3 Lymph # 1.2 1.1 L (1.2-5.4) K/mm3 [place] # 0.6 0.5 (0.0-0.8) K/mm3 Eos # 0.0 0.0 (0.0-0.4) K/mm3 Baso # 0.0 0.0 (0.0-0.1) K/mm3 Comprehensive Metabolic Panel 11/28/16 Range/Units 05:00 Sodium 141 (137-145) mmol/L Potassium 3.6 (3.6-5.0) mmol/L Chloride 107.3 H (98-107) mmol/L Carbon Dioxide 17 L (22-30) mmol/L BUN 20 (9-20) mg/dL Creatinine 0.4 L (0.8-1.5) mg/dL Glucose 164 H (75-100) mg/dL Calcium 8.3 L (8.4-10.2) mg/dL - Imaging and Cardiology EKG: image reviewed (st, 115, read by me) Echo: pending - Telemetry EKG Rhythm: Sinus Tachycardia - EKG Sinus rhythms and dysrhythmias: sinus tachycardia Repolarization changes or abnormalities: nonspecific abnormality, ST segment, and/or T wave
[2016-11-28] MEDS: NOVOLOG SUB-Q SCH ×3 (14:35→17:13)
--- NOTE | 2016-11-28 16:34 | Echocardiography Report ---
Transthoracic Echocardiogram Indication: CHF BP: 121/82 Conclusions *The left ventricular chamber size is normal. *The estimated ejection fraction is 45-50%. *There is septal flattening of the interventricular septum consistent with right ventricular volume or pressure overload. *Abnormal left ventricular diastolic filling is observed, consistent with impaired relaxation. *The right atrium is mild to moderately dilated. *The right ventricle is moderately dilated. *The inferior vena cava is dilated. *There is no change in the dimension of the inferior vena cava with respiration consistent with markedly increased right atrial pressure. *There is moderate tricuspid regurgitation. *The right ventricular systolic pressure is calculated at 65 mmHg. *There is evidence of moderate pulmonary hypertension. Findings Procedure Info: The study was technically limited due to the patient's inability to lay in the left lateral decubitus position. Left Ventricle: The left ventricular chamber size is normal. Global left ventricular systolic function is at the lower limits of normal. The estimated ejection fraction is 45-50%. There is septal flattening of the interventricular septum consistent with right ventricular volume or pressure overload. Abnormal left ventricular diastolic filling is observed, consistent with impaired relaxation. Left Atrium: The left atrium is normal in size with no visual thrombus identified. Right Ventricle: The right ventricle is moderately dilated. Right Atrium: The right atrium is mild to moderately dilated. The interatrial septum appears normal. Aortic Valve: The aortic valve structure is normal. There is no evidence of aortic regurgitation. There is no evidence of aortic stenosis. Mitral Valve: The mitral valve leaflets appear normal. There is no evidence of mitral regurgitation. There is no evidence of mitral stenosis. Tricuspid Valve: The tricuspid valve leaflets are normal. There is moderate tricuspid regurgitation. The right ventricular systolic pressure is calculated at 65 mmHg. There is evidence of moderate pulmonary hypertension. There is no tricuspid stenosis. Pulmonic Valve: The pulmonic valve appears normal. There is no evidence of pulmonic regurgitation. There is no pulmonic stenosis. Pericardium: There is no pericardial effusion. Aorta: There is no dilatation of the ascending aorta. There is no dilatation of the aortic arch. There is no dilatation of the descending thoracic aorta. There is no dilatation of the aortic root. Venous: The inferior vena cava is dilated. There is no change in the dimension of the inferior vena cava with respiration consistent with markedly increased right atrial pressure. Measurements Chambers MM Name Value Normal Range Ao root diameter (MM) 3.3 cm (2 - 3.7) LA dimension (AP) MM 2.7 cm (1.9 - 4) LA:Ao ratio (MM) 0.82 ratio - AV cusp separation (MM) 1.8 cm (1.5 - 2.6) Chambers 2D Name Value Normal Range RVIDd (AP) 2D 4.45 cm (0.9 - 2.6) IVSd (2D) 1.26 cm (0.6 - 1.1) LVPWd (2D) 1.27 cm (0.6 - 1.1) IVS:LVPW ratio (2D) 0.99 ratio - LVIDd (2D) 4 cm (3.7 - 5.6) LVIDs (2D) 3.06 cm (2 - 3.8) LV FS (Teichholz) (2D) 23.5 % - LV FS (cube) (2D) 23.5 % - EF Teichholz (2D) 47.6 % - LA dimension (AP) 2D 3 cm (1.9 - 4) Diastolic/Systolic Function Name Value Normal Range MV E-wave Vmax 0.58 m/sec - MV deceleration time 155 msec - MV A-wave Vmax 0.75 m/sec - MV E:A ratio 0.8 ratio - LV septal e' Vmax 0.07 m/sec - LV lateral e' Vmax 0.08 m/sec - LV E:e' septal ratio 7.8 ratio - LV E:e' lateral ratio 6.9 ratio - Aortic Valve Name Value Normal Range AV VTI 17.5 cm - AV mean gradient 5 mmHg - LVOT diameter 2.1 cm - LVOT VTI 10.1 cm - LVOT mean gradient 2 mmHg - SV LVOT 35 ml - AMANDA (continuity VTI) 2 cm2 - Mitral Valve Name Value Normal Range MV PHT 45 msec - MR Vmax 4.47 m/sec - MVA (PHT) 4.89 cm2 - Tricuspid Valve Name Value Normal Range TR Vmax 3.52 m/sec - TR peak gradient 50 mmHg - RAP 15 mmHg - RVSP 65 mmHg - Pulmonic Valve/Qp:Qs Name Value Normal Range PV Vmax 0.91 m/sec - PV peak gradient 3 mmHg - RVOT diameter 3.3 cm - PV acceleration time 113 msec -
[2016-11-28] MEDS: PERCOCET 5/325 PO PRN (17:16)
[2016-11-28] MEDS: HEPARIN/ 0.45% NACL-25,000 UNIT/500 ML 500 ML IV SCH (17:23)
[2016-11-28] MEDS: MORPHINE IV PRN (20:48)
[2016-11-28 21:51] LABS: Basophils % (Auto) 0.5 % (0.0-1.8); Eosinophils % (Auto) 0.4 % (0.0-4.3); Hemoglobin 8.8 gm/dl (11.8-15.2); Mean Corpuscular HGB Conc 33 % (32-34); Mean Corpuscular Hemoglobin 27 pg (28-32); Mean Corpuscular Volume 82 fl (84-94); Platelet Count 165 K/mm3 (140-440); Red Blood Count 3.31 M/mm3 (3.65-5.03); Red Cell Distribution Width 16.8 % (13.2-15.2); White Blood Count 5.9 K/mm3 (4.5-11.0)
[2016-11-29] MEDS: ATIVAN IV PRN (00:54)
[2016-11-29] MEDS: NOVOLOG SUB-Q SCH ×4 (01:00→17:01)
[2016-11-29] MEDS ORDERED: HEPARIN IV ONE (01:10)
[2016-11-29] MEDS ORDERED: HEPARIN 10,000 UNITS/10 ML IV ONE (01:15)
[2016-11-29] MEDS: ZOSYN/NS 3.375GM/50ML 50 ML IV SCH (04:41)
[2016-11-29 06:31] LABS: Basophils % (Auto) 0.7 % (0.0-1.8); Eosinophils % (Auto) 0.9 % (0.0-4.3); Hematocrit 26.3 % (35.5-45.6); Hemoglobin 8.6 gm/dl (11.8-15.2); Mean Corpuscular HGB Conc 33 % (32-34); Mean Corpuscular Hemoglobin 27 pg (28-32); Mean Corpuscular Volume 83 fl (84-94); Platelet Count 149 K/mm3 (140-440); Red Blood Count 3.18 M/mm3 (3.65-5.03); Red Cell Distribution Width 16.6 % (13.2-15.2); White Blood Count 5.6 K/mm3 (4.5-11.0)
[2016-11-29 06:58] LABS: Anion Gap 18 mmol/L; BUN/Creatinine Ratio 36.66; Blood Urea Nitrogen 11 mg/dL (9-20); Calcium 8.2 mg/dL (8.4-10.2); Carbon Dioxide 19 mmol/L (22-30); Chloride 107.3 mmol/L (98-107); Glucose 116 mg/dL (75-100); Sodium 141 mmol/L (137-145)
--- NOTE | 2016-11-29 09:14 | Progress Note ---
Assessment and Plan Assessment and plan: 1. Extensive bilateral pulmonary emboli with saddle emboli. Patient is status post bilateral EKOS catheter placement. Patient with successful EKOS catheter directed pulmonary artery thrombolytic therapy and percutaneous thrombectomy with residual thrombus in the right distal main extending into the right upper lobe. Patient also with successful IVC filter placement. Continue anticoagulation. Continue per interventional radiology. 2. Psoas abscess. Continue current antibiotics. Consider ID consultation. 3. Hypotension secondary to pulmonary emboli. Resolving. Patient currently off Levophed. 4. Diabetes type 2. Continue sliding-scale insulin and Accu-Cheks. 1800 ADA diet. 5. Obesity 6. Acute hypoxic respiratory failure. Etiology secondary to #1. Continue supportive care. The high probability of a clinically significant, sudden or life threatening deterioration of the [respiratory] system(s) required my full and direct attention, intervention and personal management. The aggregate critical care time was [32] minutes. This time is in addition to time spent performing reported procedures but includes the following: [x] Data Review and interpretation [x] Patient assessment and monitoring of vital signs [x] Documentation [x] Medication orders and management History Interval history: 36-year-old man with a history of hypertension, diabetes, obesity, chronic pain was transfer from [facility] to [facility] on the sixth floor. Patient was diagnosed with sepsis secondary to pneumonia, psoas abscess, MSSA bacteremia. He was in respiratory failure, he was trached. While on LTAC, the patient was tachycardic, CAT scan was done which shows extensive bilateral pulmonary emboli in the saddle emboli. The patient was started on heparin drip. He was then transferred to the ICU for further care. Patient had successful placement of bilateral EKOS catheters into the pulmonary arteries with angiographic confirmation. No new issues overnight. Hospitalist Physical - Constitutional Vitals: Temp Pulse Resp BP Pulse Ox 98.0 F 118 H 20 111/71 95 11/29/16 08:00 11/29/16 08:45 11/29/16 08:45 11/29/16 08:45 11/29/16 08:45 General appearance: Present: no acute distress - EENT Eyes: Present: PERRL, EOM intact ENT: hearing intact, clear oral mucosa, dentition normal - Neck Neck: Present: supple, normal ROM - Respiratory Respiratory effort: normal Respiratory: bilateral: diminished - Cardiovascular Rhythm: regular Heart Sounds: Present: S1 & S2. Absent: gallop, rub - Extremities Extremities: no ischemia, No edema, Full ROM - Abdominal General gastrointestinal: soft, non-tender, non-distended, normal bowel sounds - Integumentary Integumentary: Present: clear, warm, dry - Neurologic Neurologic: CNII-XII intact, moves all extremities Results - Labs CBC & Chem 7: 11/29/16 06:00 11/29/16 06:00 Labs: Laboratory Last Values WBC 5.6 K/mm3 (4.5-11.0) 11/29/16 06:00 RBC 3.18 M/mm3 (3.65-5.03) L 11/29/16 06:00 Hgb 8.6 gm/dl (11.8-15.2) L 11/29/16 06:00 Hct 26.3 % (35.5-45.6) L 11/29/16 06:00 MCV 83 fl (84-94) L 11/29/16 06:00 MCH 27 pg (28-32) L 11/29/16 06:00 MCHC 33 % (32-34) 11/29/16 06:00 RDW 16.6 % (13.2-15.2) H 11/29/16 06:00 Plt Count 149 K/mm3 (140-440) 11/29/16 06:00 Lymph % (Auto) 16.4 % (13.4-35.0) 11/29/16 06:00 [place] % (Auto) 8.5 % (0.0-7.3) H 11/29/16 06:00 Eos % (Auto) 0.9 % (0.0-4.3) 11/29/16 06:00 Baso % (Auto) 0.7 % (0.0-1.8) 11/29/16 06:00 Lymph # 0.9 K/mm3 (1.2-5.4) L 11/29/16 06:00 [place] # 0.5 K/mm3 (0.0-0.8) 11/29/16 06:00 Eos # 0.1 K/mm3 (0.0-0.4) 11/29/16 06:00 Baso # 0.0 K/mm3 (0.0-0.1) 11/29/16 06:00 Add Manual Diff Complete 11/27/16 17:00 Total Counted 100 11/27/16 17:00 Seg Neutrophils % 73.5 % (40.0-70.0) H 11/29/16 06:00 Seg Neuts % (Manual) 80.0 % (40.0-70.0) H 11/27/16 17:00 Band Neutrophils % 0 % 11/27/16 17:00 Lymphocytes % (Manual) 9.0 % (13.4-35.0) L 11/27/16 17:00 Reactive Lymphs % (Man) 0 % 11/27/16 17:00 Monocytes % (Manual) 9.0 % (0.0-7.3) H 11/27/16 17:00 Eosinophils % (Manual) 0 % (0.0-4.3) 11/27/16 17:00 Basophils % (Manual) 0 % (0.0-1.8) 11/27/16 17:00 Metamyelocytes % 2.0 % 11/27/16 17:00 Myelocytes % 0 % 11/27/16 17:00 Promyelocytes % 0 % 11/27/16 17:00 Blast Cells % 0 % 11/27/16 17:00 Nucleated RBC % Not Reportable 11/27/16 17:00 Seg Neutrophils # 4.1 K/mm3 (1.8-7.7) 11/29/16 06:00 Seg Neutrophils # Man 7.7 K/mm3 (1.8-7.7) 11/27/16 17:00 Band Neutrophils # 0.0 K/mm3 11/27/16 17:00 Lymphocytes # (Manual) 0.9 K/mm3 (1.2-5.4) L 11/27/16 17:00 Abs React Lymphs (Man) 0.0 K/mm3 11/27/16 17:00 Monocytes # (Manual) 0.9 K/mm3 (0.0-0.8) H 11/27/16 17:00 Eosinophils # (Manual) 0.0 K/mm3 (0.0-0.4) 11/27/16 17:00 Basophils # (Manual) 0.0 K/mm3 (0.0-0.1) 11/27/16 17:00 Metamyelocytes # 0.2 K/mm3 11/27/16 17:00 Myelocytes # 0.0 K/mm3 11/27/16 17:00 Promyelocytes # 0.0 K/mm3 11/27/16 17:00 Blast Cells # 0.0 K/mm3 11/27/16 17:00 WBC Morphology Not Reportable 11/27/16 17:00 Hypersegmented Neuts Not Reportable 11/27/16 17:00 Hyposegmented Neuts Not Reportable 11/27/16 17:00 Hypogranular Neuts Not Reportable 11/27/16 17:00 Smudge Cells Not Reportable 11/27/16 17:00 Toxic Granulation Not Reportable 11/27/16 17:00 Toxic Vacuolation Not Reportable 11/27/16 17:00 Dohle Bodies Not Reportable 11/27/16 17:00 Pelger-Huet Anomaly Not Reportable 11/27/16 17:00 Mati Rods Not Reportable 11/27/16 17:00 Platelet Estimate Consistent w auto 11/27/16 17:00 Clumped Platelets Not Reportable 11/27/16 17:00 Plt Clumps, EDTA Not Reportable 11/27/16 17:00 Large Platelets Not Reportable 11/27/16 17:00 Giant Platelets Not Reportable 11/27/16 17:00 Platelet Satelliting Not Reportable 11/27/16 17:00 Plt Morphology Comment Not Reportable 11/27/16 17:00 RBC Morphology Not Reportable 11/27/16 17:00 Dimorphic RBCs Not Reportable 11/27/16 17:00 Polychromasia Not Reportable 11/27/16 17:00 Hypochromasia Not Reportable 11/27/16 17:00 Poikilocytosis Not Reportable 11/27/16 17:00 Anisocytosis 1+ 11/27/16 17:00 Microcytosis Not Reportable 11/27/16 17:00 Macrocytosis Not Reportable 11/27/16 17:00 Spherocytes Not Reportable 11/27/16 17:00 Pappenheimer Bodies Not Reportable 11/27/16 17:00 Sickle Cells Not Reportable 11/27/16 17:00 Target Cells Not Reportable 11/27/16 17:00 Tear Drop Cells Not Reportable 11/27/16 17:00 Ovalocytes Not Reportable 11/27/16 17:00 Helmet Cells Not Reportable 11/27/16 17:00 Serrato-Colman Bodies Not Reportable 11/27/16 17:00 [place] Rings Not Reportable 11/27/16 17:00 William Cells Not Reportable 11/27/16 17:00 Bite Cells Not Reportable 11/27/16 17:00 Crenated Cell Not Reportable 11/27/16 17:00 Elliptocytes Not Reportable 11/27/16 17:00 Acanthocytes (Spur) Not Reportable 11/27/16 17:00 Rouleaux Not Reportable 11/27/16 17:00 Hemoglobin C Crystals Not Reportable 11/27/16 17:00 Schistocytes Not Reportable 11/27/16 17:00 Malaria parasites Not Reportable 11/27/16 17:00 Michael Bodies Not Reportable 11/27/16 17:00 Hem Pathologist Commnt No 11/27/16 17:00 PT 19.7 Sec. (12.2-14.9) H 11/28/16 05:00 INR 1.67 (0.87-1.13) H 11/28/16 05:00 APTT 65.5 Sec. (24.2-36.6) H* 11/28/16 14:00 Fibrinogen 474 mg/dl (211-480) 11/27/16 23:00 Heparin Anti-Xa Level < 0.10 U.I./ml (0.3-0.7) L 11/28/16 23:36 Sodium 141 mmol/L (137-145) 11/29/16 06:00 Potassium 3.0 mmol/L (3.6-5.0) L 11/29/16 06:00 Chloride 107.3 mmol/L (98-107) H 11/29/16 06:00 Carbon Dioxide 19 mmol/L (22-30) L 11/29/16 06:00 Anion Gap 18 mmol/L 11/29/16 06:00 BUN 11 mg/dL (9-20) 11/29/16 06:00 Creatinine 0.3 mg/dL (0.8-1.5) L 11/29/16 06:00 Estimated GFR > 60 ml/min 11/29/16 06:00 BUN/Creatinine Ratio 36.66 % 11/29/16 06:00 Glucose 116 mg/dL (75-100) H 11/29/16 06:00 POC Glucose 115 (70-105) H 11/29/16 08:17 Calcium 8.2 mg/dL (8.4-10.2) L 11/29/16 06:00 Blood Type O POSITIVE 11/27/16 02:58 Antibody Screen Negative 11/27/16 02:58
[2016-11-29] MEDS: POTASSIUM CHLORIDE FEEDTUBE SCH ×2 (09:51→14:50)
[2016-11-29] MEDS: DOLOPHINE PO SCH (09:52)
--- NOTE | 2016-11-29 10:27 | Progress Note ---
Assessment and Plan Bilateral pulmonary emboli with saddle emboli s/p EKOS, thrombectomy, IVC filter placement heparin gtt to be transitioned to OAC, per vascular Echo 11/2016: EF 45-50%, RA/RV moderately dilated, RVSP 65mmHg Hypotension-> resolved Acute respiratory failure-> resolved Diabetes Psoas abscess The patient has been seen in conjunction with Dr. Morris who agrees with the assessment and plan of care. Subjective Date of service: 11/29/16 Principal diagnosis: saddle emboli Interval history: The patient is resting in bed. No new complaints. S/p thrombectomy and IVC filter placement yesterday. Sinus tach on the monitor. Objective Last Vital Signs Temp 98.0 F 11/29/16 08:00 Pulse 118 H 11/29/16 08:45 Resp 20 11/29/16 08:45 BP 111/71 11/29/16 08:45 Pulse Ox 95 11/29/16 08:45 - Physical Examination General: No Apparent Distress HEENT: Positive: Normocephaly, Mucus Membranes Moist Neck: Positive: neck supple, trachea midline Cardiac: Positive: Regular Rhythm, S1/S2, Tachycardia Lungs: Positive: Decreased Breath Sounds Neuro: Positive: Grossly Intact Abdomen: Positive: Soft, Active Bowel Sounds. Negative: Tender Skin: Positive: Clear. Negative: Rash Extremities: Present: normal. Absent: edema - Labs and Meds Coagulation 11/28/16 Range/Units 14:00 APTT 65.5 H* (24.2-36.6) Sec. CBC 11/28/16 11/29/16 Range/Units 21:40 06:00 WBC 5.9 5.6 (4.5-11.0) K/mm3 RBC 3.31 L 3.18 L (3.65-5.03) M/mm3 Hgb 8.8 L 8.6 L (11.8-15.2) gm/dl Hct 27.0 L 26.3 L (35.5-45.6) % Plt Count 165 149 (140-440) K/mm3 Lymph # 0.8 L 0.9 L (1.2-5.4) K/mm3 [place] # 0.5 0.5 (0.0-0.8) K/mm3 Eos # 0.0 0.1 (0.0-0.4) K/mm3 Baso # 0.0 0.0 (0.0-0.1) K/mm3 Comprehensive Metabolic Panel 11/29/16 Range/Units 06:00 Sodium 141 (137-145) mmol/L Potassium 3.0 L (3.6-5.0) mmol/L Chloride 107.3 H (98-107) mmol/L Carbon Dioxide 19 L (22-30) mmol/L BUN 11 (9-20) mg/dL Creatinine 0.3 L (0.8-1.5) mg/dL Glucose 116 H (75-100) mg/dL Calcium 8.2 L (8.4-10.2) mg/dL - Imaging and Cardiology EKG: image reviewed (st, 115, read by me) Echo: report reviewed (11/2016: EF 45-50%, RA/RV moderately dilated, RVSP 65mmHg ) - Telemetry EKG Rhythm: Sinus Tachycardia - EKG Sinus rhythms and dysrhythmias: sinus tachycardia Repolarization changes or abnormalities: nonspecific abnormality, ST segment, and/or T wave
[2016-11-29] MEDS: HEPARIN/ 0.45% NACL-25,000 UNIT/500 ML 500 ML IV SCH ×2 (10:55→18:58)
[2016-11-29] MEDS: ceFAZolin 2 GM in NACL 0.9% 100 ML IV SCH (14:28)
[2016-11-29] MEDS: PERCOCET 5/325 PO PRN (14:53)
[2016-11-29] MEDS ORDERED: POTASSIUM CHLORIDE FEEDTUBE ONE (15:00)
--- NOTE | 2016-11-29 15:05 | Progress Note ---
Assessment and Plan 36-year-old male with massive pulmonary embolism status post thrombolytic catheter placement for approximately 30 hours in both pulmonary arteries with subsequent bilateral percutaneous pulmonary artery thrombectomy with indigo penumbra device, and IVC filter placement. Tolerating procedures well. Slight decrease in H&H likely related to procedure. Will need to be monitored. Continue anticoagulation. We will ultimately need conversion to oral anticoagulation. Patient will need anticoagulation for at least 1 year, possibly life given the patient's decreased mobility related to significant morbid obesity unless his risk factors (lack of movement and morbid obesity) can be controlled. Recommend bilateral lower extremity venous ultrasound. This will allow for subsequent monitoring if a DVT is present. Plan on IVC filter removal in approximately 3-6 months. Subjective Date of service: 11/29/16 Principal diagnosis: saddle emboli Interval history: Continues to have tachycardia in the 110s, blood pressure stable, breathing without issue, no accessory muscle use, O2 sat 100% at bedside on nasal cannula , no hematoma, no groin pain, no abdominal pain, continues to have low-grade back pain which she has been present for a long time and predated thromboysis. Objective - Constitutional Vitals: Vital Signs - 12hr 11/29/16 11/29/16 11/29/16 03:00 03:15 03:30 Temperature Pulse Rate 117 H 118 H 116 H Respiratory 17 18 17 Rate Blood Pressure 117/72 110/63 100/67 O2 Sat by Pulse 93 94 94 Oximetry 11/29/16 11/29/16 11/29/16 03:45 04:00 04:15 Temperature 97.4 F L Pulse Rate 114 H 116 H 118 H Respiratory 16 17 19 Rate Blood Pressure 104/77 111/80 118/80 O2 Sat by Pulse 95 96 97 Oximetry 11/29/16 11/29/16 11/29/16 04:30 04:45 04:58 Temperature Pulse Rate 119 H 120 H 122 H Respiratory 19 19 21 Rate Blood Pressure 130/76 132/89 132/89 O2 Sat by Pulse 96 97 97 Oximetry 11/29/16 11/29/16 11/29/16 05:00 05:06 05:15 Temperature Pulse Rate 122 H 123 H 121 H Respiratory 22 20 18 Rate Blood Pressure 124/79 124/79 127/74 O2 Sat by Pulse 98 97 96 Oximetry 11/29/16 11/29/16 11/29/16 05:16 05:30 05:45 Temperature Pulse Rate 122 H 117 H 116 H Respiratory 21 15 16 Rate Blood Pressure 127/74 114/72 117/71 O2 Sat by Pulse 96 97 96 Oximetry 11/29/16 11/29/16 11/29/16 06:00 06:15 06:20 Temperature Pulse Rate 114 H 114 H 114 H Respiratory 14 15 15 Rate Blood Pressure 114/69 116/75 117/71 O2 Sat by Pulse 96 96 97 Oximetry 11/29/16 11/29/16 11/29/16 06:30 06:45 07:00 Temperature Pulse Rate 114 H 115 H 114 H Respiratory 17 20 16 Rate Blood Pressure 112/69 102/74 102/74 O2 Sat by Pulse 96 96 98 Oximetry 11/29/16 11/29/16 11/29/16 07:15 07:30 07:45 Temperature Pulse Rate 114 H 114 H 112 H Respiratory 18 18 18 Rate Blood Pressure 105/71 105/75 115/71 O2 Sat by Pulse 97 97 97 Oximetry 11/29/16 11/29/16 11/29/16 08:00 08:15 08:16 Temperature 98.0 F Pulse Rate 113 H 119 H Respiratory 17 21 Rate Blood Pressure 116/78 104/71 O2 Sat by Pulse 97 96 97 Oximetry 11/29/16 11/29/16 11/29/16 08:30 08:45 08:46 Temperature Pulse Rate 117 H 118 H 119 H Respiratory 20 20 19 Rate Blood Pressure 118/73 111/71 111/71 O2 Sat by Pulse 99 95 95 Oximetry 11/29/16 11/29/16 11/29/16 09:00 09:15 09:30 Temperature Pulse Rate 120 H 121 H 119 H Respiratory 21 19 19 Rate Blood Pressure 110/79 99/72 109/64 O2 Sat by Pulse 93 92 98 Oximetry 11/29/16 11/29/16 11/29/16 09:45 10:00 10:15 Temperature Pulse Rate 118 H 117 H 118 H Respiratory 17 20 19 Rate Blood Pressure 125/84 124/83 110/76 O2 Sat by Pulse 98 98 100 Oximetry 11/29/16 11/29/16 11/29/16 10:30 10:45 10:56 Temperature Pulse Rate 119 H 117 H 115 H Respiratory 20 19 19 Rate Blood Pressure 115/68 118/77 118/77 O2 Sat by Pulse 98 98 100 Oximetry 11/29/16 11:44 Temperature 98.9 F Pulse Rate Respiratory Rate Blood Pressure O2 Sat by Pulse Oximetry General appearance: Present: no acute distress - EENT Eyes: EOM intact ENT: hearing intact - Respiratory Respiratory effort: normal - Cardiovascular Rhythm: other (tachycardic) Extremities: normal temperature, normal color Extremity abnormal: other (no hematoma) - Gastrointestinal General gastrointestinal: Present: soft, non-tender, other (obese) - Psychiatric Psychiatric: appropriate mood/affect, cooperative - Labs CBC & Chem 7: 11/29/16 06:00 11/29/16 06:00 Labs: Abnormal lab results 11/28/16 11/28/16 11/28/16 Range/Units 07:40 14:00 14:00 RBC (3.65-5.03) M/mm3 Hgb (11.8-15.2) gm/dl Hct (35.5-45.6) % MCV (84-94) fl MCH (28-32) pg RDW (13.2-15.2) % Lymph % (Auto) (13.4-35.0) % [place] % (Auto) (0.0-7.3) % Lymph # (1.2-5.4) K/mm3 Seg Neutrophils % (40.0-70.0) % APTT 65.5 H* (24.2-36.6) Sec. Heparin Anti-Xa Level 0.23 L (0.3-0.7) U.I./ml Potassium (3.6-5.0) mmol/L Chloride (98-107) mmol/L Carbon Dioxide (22-30) mmol/L Creatinine (0.8-1.5) mg/dL Glucose (75-100) mg/dL POC Glucose 174 H (70-105) Calcium (8.4-10.2) mg/dL 11/28/16 11/28/16 11/28/16 Range/Units 16:12 21:40 21:48 RBC 3.31 L (3.65-5.03) M/mm3 Hgb 8.8 L (11.8-15.2) gm/dl Hct 27.0 L (35.5-45.6) % MCV 82 L (84-94) fl MCH 27 L (28-32) pg RDW 16.8 H (13.2-15.2) % Lymph % (Auto) 12.9 L (13.4-35.0) % [place] % (Auto) 7.7 H (0.0-7.3) % Lymph # 0.8 L (1.2-5.4) K/mm3 Seg Neutrophils % 78.5 H (40.0-70.0) % APTT (24.2-36.6) Sec. Heparin Anti-Xa Level (0.3-0.7) U.I./ml Potassium (3.6-5.0) mmol/L Chloride (98-107) mmol/L Carbon Dioxide (22-30) mmol/L Creatinine (0.8-1.5) mg/dL Glucose (75-100) mg/dL POC Glucose 144 H 153 H (70-105) Calcium (8.4-10.2) mg/dL 11/28/16 11/28/16 11/29/16 Range/Units 22:07 23:36 06:00 RBC 3.18 L (3.65-5.03) M/mm3 Hgb 8.6 L (11.8-15.2) gm/dl Hct 26.3 L (35.5-45.6) % MCV 83 L (84-94) fl MCH 27 L (28-32) pg RDW 16.6 H (13.2-15.2) % Lymph % (Auto) (13.4-35.0) % [place] % (Auto) 8.5 H (0.0-7.3) % Lymph # 0.9 L (1.2-5.4) K/mm3 Seg Neutrophils % 73.5 H (40.0-70.0) % APTT (24.2-36.6) Sec. Heparin Anti-Xa Level < 0.10 L (0.3-0.7) U.I./ml Potassium (3.6-5.0) mmol/L Chloride (98-107) mmol/L Carbon Dioxide (22-30) mmol/L Creatinine (0.8-1.5) mg/dL Glucose (75-100) mg/dL POC Glucose 158 H (70-105) Calcium (8.4-10.2) mg/dL 11/29/16 11/29/1611/29/16 Range/Units 06:00 08:17 08:24 RBC (3.65-5.03) M/mm3 Hgb (11.8-15.2) gm/dl Hct (35.5-45.6) % MCV (84-94) fl MCH (28-32) pg RDW (13.2-15.2) % Lymph % (Auto) (13.4-35.0) % [place] % (Auto) (0.0-7.3) % Lymph # (1.2-5.4) K/mm3 Seg Neutrophils % (40.0-70.0) % APTT (24.2-36.6) Sec. Heparin Anti-Xa Level < 0.10 L (0.3-0.7) U.I./ml Potassium 3.0 L (3.6-5.0) mmol/L Chloride 107.3 H (98-107) mmol/L Carbon Dioxide 19 L (22-30) mmol/L Creatinine 0.3 L (0.8-1.5) mg/dL Glucose 116 H (75-100) mg/dL POC Glucose 115 H (70-105) Calcium 8.2 L (8.4-10.2) mg/dL 11/29/16 Range/Units 11:26 RBC (3.65-5.03) M/mm3 Hgb (11.8-15.2) gm/dl Hct (35.5-45.6) % MCV (84-94) fl MCH (28-32) pg RDW (13.2-15.2) % Lymph % (Auto) (13.4-35.0) % [place] % (Auto) (0.0-7.3) % Lymph # (1.2-5.4) K/mm3 Seg Neutrophils % (40.0-70.0) % APTT (24.2-36.6) Sec. Heparin Anti-Xa Level (0.3-0.7) U.I./ml Potassium (3.6-5.0) mmol/L Chloride (98-107) mmol/L Carbon Dioxide (22-30) mmol/L Creatinine (0.8-1.5) mg/dL Glucose (75-100) mg/dL POC Glucose 172 H (70-105) Calcium (8.4-10.2) mg/dL
--- NOTE | 2016-11-29 15:52 | Progress Note ---
Assessment and Plan Massive pulmonary embolism. Hemodynamically compromised status, corrected after successful EKOS catheter placement/DPA Hypotension. Controlled History of Psoas abscess SDB/LIVAN. He is to be on either CPAP or BiPAP at nighttime. Optimal level of treatment yet to be determined Severe morbid obesity Chronic pain. Currently on multiple narcotics including methadone Recommendations: Continue oxygen support during the daytime. Regarding BiPAP use, 12 over 5 cm empirically at nighttime. Discussed with patient We'll try to minimize narcotic use and also try to maintain pain under control, because of issues with sleep disorder breathing apparently to respiratory failure. Her if prior respiratory failure was related to medication use but does need to be keep in mind also. I agree with Doppler recommendation for IR I will also recommend a follow-up echocardiogram. This in view of evidence of severe pulmonary hypertension with low left ventricle ejection fraction. It is Echo finding continues with treatment then we'll recommend to consider: -Further cardiac evaluation for the possibility of right heart catheterization -Ventilation/perfusion scanning for baseline profile for chronic thrombo- embolic pulmonary hypertension Discussed with patient and parent Critical care time in case review with staff and coordination of care, 40 minutes. Family members present during rounds for case discussion Subjective Date of service: 11/29/16 Principal diagnosis: saddle emboli with hypotension, status post thrombolysis Interval history: Denies any bleeding or hemoptysis. Denies any shortness of breath. He declined to use BiPAP last night. Doesn't confirm that he has a prior CPAP unit at home, because of prior treatment for sleep apnea. He is also on chronic pain management before this admission has also verified by his father Objective Vital Signs - 12hr 11/29/16 11/29/16 11/29/16 03:45 04:00 04:15 Temperature 97.4 F L Pulse Rate 114 H 116 H 118 H Respiratory 16 17 19 Rate Blood Pressure 104/77 111/80 118/80 O2 Sat by Pulse 95 96 97 Oximetry 11/29/16 11/29/16 11/29/16 04:30 04:45 04:58 Temperature Pulse Rate 119 H 120 H 122 H Respiratory 19 19 21 Rate Blood Pressure 130/76 132/89 132/89 O2 Sat by Pulse 96 97 97 Oximetry 11/29/16 11/29/16 11/29/16 05:00 05:06 05:15 Temperature Pulse Rate 122 H 123 H 121 H Respiratory 22 20 18 Rate Blood Pressure 124/79 124/79 127/74 O2 Sat by Pulse 98 97 96 Oximetry 11/29/16 11/29/16 11/29/16 05:16 05:30 05:45 Temperature Pulse Rate 122 H 117 H 116 H Respiratory 21 15 16 Rate Blood Pressure 127/74 114/72 117/71 O2 Sat by Pulse 96 97 96 Oximetry 11/29/16 11/29/16 11/29/16 06:00 06:15 06:20 Temperature Pulse Rate 114 H 114 H 114 H Respiratory 14 15 15 Rate Blood Pressure 114/69 116/75 117/71 O2 Sat by Pulse 96 96 97 Oximetry 11/29/16 11/29/16 11/29/16 06:30 06:45 07:00 Temperature Pulse Rate 114 H 115 H 114 H Respiratory 17 20 16 Rate Blood Pressure 112/69 102/74 102/74 O2 Sat by Pulse 96 96 98 Oximetry 11/29/16 11/29/16 11/29/16 07:15 07:30 07:45 Temperature Pulse Rate 114 H 114 H 112 H Respiratory 18 18 18 Rate Blood Pressure 105/71 105/75 115/71 O2 Sat by Pulse 97 97 97 Oximetry 11/29/16 11/29/16 11/29/16 08:00 08:15 08:16 Temperature 98.0 F Pulse Rate 113 H 119 H Respiratory 17 21 Rate Blood Pressure 116/78 104/71 O2 Sat by Pulse 97 96 97 Oximetry 11/29/16 11/29/16 11/29/16 08:30 08:45 08:46 Temperature Pulse Rate 117 H 118 H 119 H Respiratory 20 20 19 Rate Blood Pressure 118/73 111/71 111/71 O2 Sat by Pulse 99 95 95 Oximetry 11/29/16 11/29/16 11/29/16 09:00 09:15 09:30 Temperature Pulse Rate 120 H 121 H 119 H Respiratory 21 19 19 Rate Blood Pressure 110/79 99/72 109/64 O2 Sat by Pulse 93 92 98 Oximetry 11/29/16 11/29/16 11/29/16 09:45 10:00 10:15 Temperature Pulse Rate 118 H 117 H 118 H Respiratory 17 20 19 Rate Blood Pressure 125/84 124/83 110/76 O2 Sat by Pulse 98 98 100 Oximetry 11/29/16 11/29/16 11/29/16 10:30 10:45 10:56 Temperature Pulse Rate 119 H 117 H 115 H Respiratory 20 19 19 Rate Blood Pressure 115/68 118/77 118/77 O2 Sat by Pulse 98 98 100 Oximetry 11/29/16 11/29/16 11/29/16 10:58 11:00 11:15 Temperature Pulse Rate 116 H 116 H 117 H Respiratory 18 20 19 Rate Blood Pressure 118/77 106/77 103/82 O2 Sat by Pulse 99 98 97 Oximetry 11/29/16 11/29/16 11/29/16 11:30 11:44 11:45 Temperature 98.9 F Pulse Rate 114 H 115 H Respiratory 16 16 Rate Blood Pressure 109/75 112/73 O2 Sat by Pulse 96 97 Oximetry 11/29/16 11/29/16 11/29/16 12:00 12:15 12:30 Temperature Pulse Rate 116 H 116 H 119 H Respiratory 18 17 13 Rate Blood Pressure 116/76 112/81 110/64 O2 Sat by Pulse 98 96 99 Oximetry 11/29/16 11/29/16 11/29/16 12:45 13:00 13:15 Temperature Pulse Rate 118 H 115 H 116 H Respiratory 18 21 17 Rate Blood Pressure 105/62 113/39 111/71 O2 Sat by Pulse 97 98 99 Oximetry 11/29/16 11/29/16 11/29/16 13:30 13:45 14:00 Temperature Pulse Rate 114 H 113 H 114 H Respiratory 14 20 15 Rate Blood Pressure 93/65 107/68 107/68 O2 Sat by Pulse 98 98 98 Oximetry 11/29/16 11/29/16 11/29/16 14:15 14:30 14:45 Temperature Pulse Rate 114 H 115 H 114 H Respiratory 16 18 13 Rate Blood Pressure 99/69 112/73 109/69 O2 Sat by Pulse 98 98 99 Oximetry 11/29/16 15:00 Temperature Pulse Rate 114 H Respiratory 15 Rate Blood Pressure 107/68 O2 Sat by Pulse 97 Oximetry Constitutional: no acute distress, alert, other (morbidly obese, alert) Eyes: non-icteric Neck: supple, no JVD Effort: normal Ascultation: Bilateral: clear, diminished breath sounds (decreased expansion) Gastrointestinal: normoactive bowel sounds, non-distended Integumentary: normal Extremities: pulses normal, no ischemia or petechiae Neurologic: normal mental status, non-focal exam, pupils equal and round, CN II- XII normal CBC and BMP: 11/29/16 06:00 11/29/16 06:00 ABG, PT/INR, D-dimer: PT/INR, D-dimer PT 19.7 Sec. (12.2-14.9) H 11/28/16 05:00 INR 1.67 (0.87-1.13) H 11/28/16 05:00 Abnormal lab findings: Abnormal Labs 11/27/16 11/27/16 11/27/16 02:04 02:24 02:58 WBC 11.1 H RBC Hgb 11.6 L Hct MCV 83 L MCH 26 L MCHC 31 L RDW 17.0 H Plt Count Lymph % (Auto) [place] % (Auto) Lymph # Seg Neutrophils % Seg Neuts % (Manual) Lymphocytes % (Manual) Monocytes % (Manual) 15.0 H Seg Neutrophils # Man Lymphocytes # (Manual) Monocytes # (Manual) 1.7 H PT INR APTT Fibrinogen Heparin Anti-Xa Level Sodium 133 L Potassium Chloride 96.4 L Carbon Dioxide 16 L D BUN 23 H Creatinine 0.5 L D Glucose 214 H POC Glucose 211 H Calcium 11/27/16 11/27/16 11/27/16 02:58 06:20 06:20 WBC 13.2 H RBC Hgb 11.1 L Hct MCV 82 L MCH 26 L MCHC 31 L RDW 16.9 H Plt Count 472 H Lymph % (Auto) [place] % (Auto) Lymph # Seg Neutrophils % Seg Neuts % (Manual) 82.0 H Lymphocytes % (Manual) 6.0 L Monocytes % (Manual) 9.0 H Seg Neutrophils # Man 10.8 H Lymphocytes # (Manual) 0.8 L Monocytes # (Manual) 1.2 H PT 15.9 H 18.5 H INR 1.28 H 1.54 H APTT 46.2 H Fibrinogen 603 H Heparin Anti-Xa Level Sodium Potassium Chloride Carbon Dioxide BUN Creatinine Glucose POC Glucose Calcium 11/27/16 11/27/16 11/27/16 06:20 06:20 09:45 WBC 11.6 H RBC Hgb 11.2 L Hct 34.5 L MCV 81 L MCH 26 L MCHC RDW 17.0 H Plt Count Lymph % (Auto) [place] % (Auto) Lymph # Seg Neutrophils % Seg Neuts % (Manual) 85.0 H Lymphocytes % (Manual) 3.0 L Monocytes % (Manual) Seg Neutrophils # Man 9.9 H Lymphocytes # (Manual) 0.3 L Monocytes # (Manual) PT INR APTT Fibrinogen Heparin Anti-Xa Level 0.99 H Sodium 136 L Potassium Chloride 96.6 L Carbon Dioxide 17 L BUN 23 H Creatinine 0.6 L Glucose 223 H POC Glucose Calcium 11/27/16 11/27/16 11/27/16 15:01 17:00 17:00 WBC RBC Hgb 10.9 L Hct 33.2 L MCV 81 L MCH 27 L MCHC RDW 16.9 H Plt Count Lymph % (Auto) [place] % (Auto) Lymph # Seg Neutrophils % Seg Neuts % (Manual) 80.0 H Lymphocytes % (Manual) 9.0 L Monocytes % (Manual) 9.0 H Seg Neutrophils # Man Lymphocytes # (Manual) 0.9 L Monocytes # (Manual) 0.9 H PT INR APTT Fibrinogen 533 H Heparin Anti-Xa Level 0.81 H Sodium Potassium Chloride Carbon Dioxide BUN Creatinine Glucose POC Glucose 254 H Calcium 11/27/16 11/27/16 11/27/16 17:41 22:30 23:00 WBC RBC Hgb 10.0 L Hct 30.4 L MCV 82 L MCH 27 L MCHC RDW 17.0 H Plt Count Lymph % (Auto) [place] % (Auto) 8.2 H Lymph # Seg Neutrophils % 75.1 H Seg Neuts % (Manual) Lymphocytes % (Manual) Monocytes % (Manual) Seg Neutrophils # Man Lymphocytes # (Manual) Monocytes # (Manual) PT INR APTT Fibrinogen Heparin Anti-Xa Level Sodium Potassium Chloride Carbon Dioxide BUN Creatinine Glucose POC Glucose 242 H 199 H Calcium 11/28/16 11/28/16 11/28/16 05:00 05:00 05:00 WBC RBC Hgb 9.8 L Hct 30.0 L MCV 82 L MCH 27 L MCHC RDW 17.1 H Plt Count Lymph % (Auto) [place] % (Auto) 7.7 H Lymph # 1.1 L Seg Neutrophils % 75.1 H Seg Neuts % (Manual) Lymphocytes % (Manual) Monocytes % (Manual) Seg Neutrophils # Man Lymphocytes # (Manual) Monocytes # (Manual) PT 19.7 H INR 1.67 H APTT 125.9 H* Fibrinogen Heparin Anti-Xa Level Sodium Potassium Chloride 107.3 H Carbon Dioxide 17 L BUN Creatinine 0.4 L Glucose 164 H POC Glucose Calcium 8.3 L 11/28/16 11/28/16 11/28/16 07:40 14:00 14:00 WBC RBC Hgb Hct MCV MCH MCHC RDW Plt Count Lymph % (Auto) [place] % (Auto) Lymph # Seg Neutrophils % Seg Neuts % (Manual) Lymphocytes % (Manual) Monocytes % (Manual) Seg Neutrophils # Man Lymphocytes # (Manual) Monocytes # (Manual) PT INR APTT 65.5 H* Fibrinogen Heparin Anti-Xa Level 0.23 L Sodium Potassium Chloride Carbon Dioxide BUN Creatinine Glucose POC Glucose 174 H Calcium 11/28/16 11/28/16 11/28/16 16:12 21:40 21:48 WBC RBC 3.31 L Hgb 8.8 L Hct 27.0 L MCV 82 L MCH 27 L MCHC RDW 16.8 H Plt Count Lymph % (Auto) 12.9 L [place] % (Auto) 7.7 H Lymph # 0.8 L Seg Neutrophils % 78.5 H Seg Neuts % (Manual) Lymphocytes % (Manual) Monocytes % (Manual) Seg Neutrophils # Man Lymphocytes # (Manual) Monocytes # (Manual) PT INR APTT Fibrinogen Heparin Anti-Xa Level Sodium Potassium Chloride Carbon Dioxide BUN Creatinine Glucose POC Glucose 144 H 153 H Calcium 11/28/16 11/28/16 11/29/16 22:07 23:36 06:00 WBC RBC 3.18 L Hgb 8.6 L Hct 26.3 L MCV 83 L MCH 27 L MCHC RDW 16.6 H Plt Count Lymph % (Auto) [place] % (Auto) 8.5 H Lymph # 0.9 L Seg Neutrophils % 73.5 H Seg Neuts % (Manual) Lymphocytes % (Manual) Monocytes % (Manual) Seg Neutrophils # Man Lymphocytes # (Manual) Monocytes # (Manual) PT INR APTT Fibrinogen Heparin Anti-Xa Level < 0.10 L Sodium Potassium Chloride Carbon Dioxide BUN Creatinine Glucose POC Glucose 158 H Calcium 11/29/16 11/29/16 11/29/16 06:00 08:17 08:24 WBC RBC Hgb Hct MCV MCH MCHC RDW Plt Count Lymph % (Auto) [place] % (Auto) Lymph # Seg Neutrophils % Seg Neuts % (Manual) Lymphocytes % (Manual) Monocytes % (Manual) Seg Neutrophils # Man Lymphocytes # (Manual) Monocytes # (Manual) PT INR APTT Fibrinogen Heparin Anti-Xa Level < 0.10 L Sodium Potassium 3.0 L Chloride 107.3 H Carbon Dioxide 19 L BUN Creatinine 0.3 L Glucose 116 H POC Glucose 115 H Calcium 8.2 L 11/29/16 11/29/16 11:26 15:22 WBC RBC Hgb Hct MCV MCH MCHC RDW Plt Count Lymph % (Auto) [place] % (Auto) Lymph # Seg Neutrophils % Seg Neuts % (Manual) Lymphocytes % (Manual) Monocytes % (Manual) Seg Neutrophils # Man Lymphocytes # (Manual) Monocytes # (Manual) PT INR APTT Fibrinogen Heparin Anti-Xa Level Sodium Potassium Chloride Carbon Dioxide BUN Creatinine Glucose POC Glucose 172 H 167 H Calcium
[2016-11-30] MEDS: PERCOCET 5/325 PO PRN (03:08)
[2016-11-30] MEDS: ATIVAN IV PRN (03:11)
[2016-11-30] MEDS: HEPARIN/ 0.45% NACL-25,000 UNIT/500 ML 500 ML IV SCH (03:14)
[2016-11-30] MEDS ORDERED: HEPARIN 10,000 UNITS/10 ML IV ONE (03:30)
[2016-11-30 04:39] LABS: Basophils % (Auto) 0.6 % (0.0-1.8); Eosinophils % (Auto) 1.3 % (0.0-4.3); Hematocrit 27.3 % (35.5-45.6); Hemoglobin 8.8 gm/dl (11.8-15.2); Mean Corpuscular HGB Conc 32 % (32-34); Mean Corpuscular Hemoglobin 27 pg (28-32); Mean Corpuscular Volume 83 fl (84-94); Platelet Count 148 K/mm3 (140-440); Red Blood Count 3.28 M/mm3 (3.65-5.03); Red Cell Distribution Width 16.9 % (13.2-15.2); White Blood Count 6.4 K/mm3 (4.5-11.0)
[2016-11-30 04:59] LABS: BUN/Creatinine Ratio 26.66; Blood Urea Nitrogen 8 mg/dL (9-20); Calcium 7.9 mg/dL (8.4-10.2); Carbon Dioxide 19 mmol/L (22-30); Chloride 100.3 mmol/L (98-107); Glucose 132 mg/dL (75-100); Potassium 3.6 mmol/L (3.6-5.0); Sodium 137 mmol/L (137-145)
[2016-11-30 05:00] LABS: Anion Gap 21 mmol/L
[2016-11-30] MEDS: ceFAZolin 2 GM in NACL 0.9% 100 ML IV SCH ×3 (06:12→21:59)
[2016-11-30] MEDS: NYSTOP TP SCH (06:13)
--- NOTE | 2016-11-30 09:29 | Progress Note ---
Assessment and Plan Massive pulmonary embolism. Hemodynamically compromised status, some low blood pressure noted overnight but no additional findings Hypotension. Improved. He is requesting additional amounts of narcotics which might affect his blood pressure readings History of Psoas abscess SDB/LIVAN. Refusing BiPAP at nighttime. Already oriented twice. Severe morbid obesity Chronic pain. Currently on multiple narcotics including methadone Recommendations: Continue oxygen support during the daytime. Plan increase IV fluid boluses or space narcotic treatments if low blood pressure is noted. Repeat echocardiogram and lower extremity venous Doppler Watch for fever and repeat blood cultures if noted. Urinalysis, to repeat urine noted. Culture is abnormal consistent with UTI HIV panel Start Oral agent such as Dabigatran or equivalent and an once active considers continue heparin pending HIT panel. Discussed with hospital medicine to follow also RN to ask family to bring his CPAP from home and start using patient's CPAP at nighttime. However, I am afraid that he will continues to refuse this treatment. He has already been oriented about the consequences of lack of treatment in the setting of pulmonary hypertension and heart problems. Watch for depression and narcotic dependency signs and consider psych evaluation for this and support. If transferred out, needs to be on telemetry monitoring to follow-up on respiratory status closely. Discussed with patient . Critical care time in case review with staff and coordination of care, 35 minutes. Family members present during rounds for case discussion Subjective Date of service: 11/30/16 Principal diagnosis: saddle emboli with hypotension, status post thrombolysis Interval history: Reports no breathing problems cough or hemoptysis. No bleeding issues reported by staff last night. He did have fever last night. Objective Vital Signs - 12hr 11/29/16 11/29/16 11/29/16 21:30 21:45 22:00 Temperature Pulse Rate 107 H 109 H 113 H Respiratory 15 15 18 Rate Blood Pressure 103/60 100/67 103/67 O2 Sat by Pulse 99 100 100 Oximetry 11/29/16 11/29/16 11/29/16 22:02 22:15 22:30 Temperature Pulse Rate 112 H 110 H 111 H Respiratory 17 14 14 Rate Blood Pressure 103/67 90/64 92/66 O2 Sat by Pulse 100 100 100 Oximetry 11/29/16 11/29/16 11/29/16 22:45 23:00 23:15 Temperature Pulse Rate 111 H 113 H 117 H Respiratory 15 15 15 Rate Blood Pressure 86/56 96/61 96/53 O2 Sat by Pulse 100 100 98 Oximetry 11/29/16 11/29/16 11/30/16 23:30 23:45 00:00 Temperature 99.6 F Pulse Rate 111 H 110 H 111 H Respiratory 19 19 18 Rate Blood Pressure 88/61 95/59 96/64 O2 Sat by Pulse 100 99 99 Oximetry 11/30/16 11/30/16 11/30/16 00:15 00:30 00:45 Temperature Pulse Rate 111 H 113 H 112 H Respiratory 19 16 16 Rate Blood Pressure 100/58 94/58 97/63 O2 Sat by Pulse 100 99 98 Oximetry 11/30/16 11/30/16 11/30/16 01:00 01:15 01:30 Temperature Pulse Rate 111 H 113 H 113 H Respiratory 17 17 20 Rate Blood Pressure 95/61 105/64 105/53 O2 Sat by Pulse 98 98 100 Oximetry 11/30/16 11/30/16 11/30/16 01:45 02:00 02:16 Temperature Pulse Rate 116 H 115 H 123 H Respiratory 20 21 12 Rate Blood Pressure 102/64 120/54 87/63 O2 Sat by Pulse 100 97 100 Oximetry 11/30/16 11/30/16 11/30/16 02:30 02:45 03:00 Temperature Pulse Rate 118 H 114 H Respiratory 24 20 Rate Blood Pressure 105/63 102/66 94/63 O2 Sat by Pulse 100 99 100 Oximetry 11/30/16 11/30/16 11/30/16 03:15 03:30 03:45 Temperature Pulse Rate 120 H 121 H 117 H Respiratory 17 18 18 Rate Blood Pressure 104/76 108/71 82/60 O2 Sat by Pulse 98 93 97 Oximetry 11/30/16 11/30/16 11/30/16 04:00 04:15 04:20 Temperature 101.1 F H Pulse Rate 117 H 117 H 116 H Respiratory 20 19 17 Rate Blood Pressure 90/66 97/64 97/64 O2 Sat by Pulse 99 98 98 Oximetry 11/30/16 11/30/16 11/30/16 04:30 04:45 05:00 Temperature Pulse Rate 119 H 113 H 111 H Respiratory 21 17 17 Rate Blood Pressure 97/68 98/61 95/61 O2 Sat by Pulse 97 98 100 Oximetry 11/30/16 11/30/16 11/30/16 05:15 05:30 05:44 Temperature Pulse Rate 110 H 110 H 109 H Respiratory 19 15 16 Rate Blood Pressure 100/56 102/67 102/67 O2 Sat by Pulse 100 99 99 Oximetry 11/30/16 11/30/16 11/30/16 05:45 06:00 06:15 Temperature Pulse Rate 109 H 108 H 109 H Respiratory 18 18 17 Rate Blood Pressure 96/68 86/62 93/62 O2 Sat by Pulse 98 100 98 Oximetry 11/30/16 11/30/16 11/30/16 06:30 06:45 07:00 Temperature Pulse Rate 109 H 107 H 106 H Respiratory 13 18 15 Rate Blood Pressure 97/64 93/63 96/61 O2 Sat by Pulse 97 99 97 Oximetry 11/30/16 11/30/16 11/30/16 07:15 07:46 08:17 Temperature 98.8 F Pulse Rate 104 H Respiratory 15 Rate Blood Pressure 94/62 O2 Sat by Pulse 98 99 Oximetry Constitutional: no acute distress, alert, other (morbidly obese, alert) Eyes: non-icteric Neck: supple, no JVD Effort: normal Ascultation: Bilateral: clear, diminished breath sounds (decreased expansion) Gastrointestinal: normoactive bowel sounds, non-distended Integumentary: normal Extremities: no cyanosis, no edema, pulses normal Neurologic: normal mental status, non-focal exam, pupils equal and round, CN II- XII normal CBC and BMP: 11/30/16 04:18 11/30/16 04:18 ABG, PT/INR, D-dimer: PT/INR, D-dimer PT 19.7 Sec. (12.2-14.9) H 11/28/16 05:00 INR 1.67 (0.87-1.13) H 11/28/16 05:00 Abnormal lab findings: Abnormal Labs 11/27/16 11/27/16 11/27/16 02:04 02:24 02:58 WBC 11.1 H RBC Hgb 11.6 L Hct MCV 83 L MCH 26 L MCHC 31 L RDW 17.0 H Plt Count Lymph % (Auto) [place] % (Auto) Lymph # Seg Neutrophils % Seg Neuts % (Manual) Lymphocytes % (Manual) Monocytes % (Manual) 15.0 H Seg Neutrophils # Man Lymphocytes # (Manual) Monocytes # (Manual) 1.7 H PT INR APTT Fibrinogen Heparin Anti-Xa Level Sodium 133 L Potassium Chloride 96.4 L Carbon Dioxide 16 L D BUN 23 H Creatinine 0.5 L D Glucose 214 H POC Glucose 211 H Calcium 11/27/16 11/27/16 11/27/16 02:58 06:20 06:20 WBC 13.2 H RBC Hgb 11.1 L Hct MCV 82 L MCH 26 L MCHC 31 L RDW 16.9 H Plt Count 472 H Lymph % (Auto) [place] % (Auto) Lymph # Seg Neutrophils % Seg Neuts % (Manual) 82.0 H Lymphocytes % (Manual) 6.0 L Monocytes % (Manual) 9.0 H Seg Neutrophils # Man 10.8 H Lymphocytes # (Manual) 0.8 L Monocytes # (Manual) 1.2 H PT 15.9 H 18.5 H INR 1.28 H 1.54 H APTT 46.2 H Fibrinogen 603 H Heparin Anti-Xa Level Sodium Potassium Chloride Carbon Dioxide BUN Creatinine Glucose POC Glucose Calcium 11/27/16 11/27/16 11/27/16 06:20 06:20 09:45 WBC 11.6 H RBC Hgb 11.2 L Hct 34.5 L MCV 81 L MCH 26 L MCHC RDW 17.0 H Plt Count Lymph % (Auto) [place] % (Auto) Lymph # Seg Neutrophils % Seg Neuts % (Manual) 85.0 H Lymphocytes % (Manual) 3.0 L Monocytes % (Manual) Seg Neutrophils # Man 9.9 H Lymphocytes # (Manual) 0.3 L Monocytes # (Manual) PT INR APTT Fibrinogen Heparin Anti-Xa Level 0.99 H Sodium 136 L Potassium Chloride 96.6 L Carbon Dioxide 17 L BUN 23 H Creatinine 0.6 L Glucose 223 H POC Glucose Calcium 11/27/16 11/27/16 11/27/16 15:01 17:00 17:00 WBC RBC Hgb 10.9 L Hct 33.2 L MCV 81 L MCH 27 L MCHC RDW 16.9 H Plt Count Lymph % (Auto) [place] % (Auto) Lymph # Seg Neutrophils % Seg Neuts % (Manual) 80.0 H Lymphocytes % (Manual) 9.0 L Monocytes % (Manual) 9.0 H Seg Neutrophils # Man Lymphocytes # (Manual) 0.9 L Monocytes # (Manual) 0.9 H PT INR APTT Fibrinogen 533 H Heparin Anti-Xa Level 0.81 H Sodium Potassium Chloride Carbon Dioxide BUN Creatinine Glucose POC Glucose 254 H Calcium 11/27/16 11/27/16 11/27/16 17:41 22:30 23:00 WBC RBC Hgb 10.0 L Hct 30.4 L MCV 82 L MCH 27 L MCHC RDW 17.0 H Plt Count Lymph % (Auto) [place] % (Auto) 8.2 H Lymph # Seg Neutrophils % 75.1 H Seg Neuts % (Manual) Lymphocytes % (Manual) Monocytes % (Manual) Seg Neutrophils # Man Lymphocytes # (Manual) Monocytes # (Manual) PT INR APTT Fibrinogen Heparin Anti-Xa Level Sodium Potassium Chloride Carbon Dioxide BUN Creatinine Glucose POC Glucose 242 H 199 H Calcium 11/28/16 11/28/16 11/28/16 05:00 05:00 05:00 WBC RBC Hgb 9.8 L Hct 30.0 L MCV 82 L MCH 27 L MCHC RDW 17.1 H Plt Count Lymph % (Auto) [place] % (Auto) 7.7 H Lymph # 1.1 L Seg Neutrophils % 75.1 H Seg Neuts % (Manual) Lymphocytes % (Manual) Monocytes % (Manual) Seg Neutrophils # Man Lymphocytes # (Manual) Monocytes # (Manual) PT 19.7 H INR 1.67 H APTT 125.9 H* Fibrinogen Heparin Anti-Xa Level Sodium Potassium Chloride 107.3 H Carbon Dioxide 17 L BUN Creatinine 0.4 L Glucose 164 H POC Glucose Calcium 8.3 L 11/28/16 11/28/16 11/28/16 07:40 14:00 14:00 WBC RBC Hgb Hct MCV MCH MCHC RDW Plt Count Lymph % (Auto) [place] % (Auto) Lymph # Seg Neutrophils % Seg Neuts % (Manual) Lymphocytes % (Manual) Monocytes % (Manual) Seg Neutrophils # Man Lymphocytes # (Manual) Monocytes # (Manual) PT INR APTT 65.5 H* Fibrinogen Heparin Anti-Xa Level 0.23 L Sodium Potassium Chloride Carbon Dioxide BUN Creatinine Glucose POC Glucose 174 H Calcium 11/28/16 11/28/16 11/28/16 16:12 21:40 21:48 WBC RBC 3.31 L Hgb 8.8 L Hct 27.0 L MCV 82 L MCH 27 L MCHC RDW 16.8 H Plt Count Lymph % (Auto) 12.9 L [place] % (Auto) 7.7 H Lymph # 0.8 L Seg Neutrophils % 78.5 H Seg Neuts % (Manual) Lymphocytes % (Manual) Monocytes % (Manual) Seg Neutrophils # Man Lymphocytes # (Manual) Monocytes # (Manual) PT INR APTT Fibrinogen Heparin Anti-Xa Level Sodium Potassium Chloride Carbon Dioxide BUN Creatinine Glucose POC Glucose 144 H 153 H Calcium 11/28/16 11/28/16 11/29/16 22:07 23:36 06:00 WBC RBC 3.18 L Hgb 8.6 L Hct 26.3 L MCV 83 L MCH 27 L MCHC RDW 16.6 H Plt Count Lymph % (Auto) [place] % (Auto) 8.5 H Lymph # 0.9 L Seg Neutrophils % 73.5 H Seg Neuts % (Manual) Lymphocytes % (Manual) Monocytes % (Manual) Seg Neutrophils # Man Lymphocytes # (Manual) Monocytes # (Manual) PT INR APTT Fibrinogen Heparin Anti-Xa Level < 0.10 L Sodium Potassium Chloride Carbon Dioxide BUN Creatinine Glucose POC Glucose 158 H Calcium 11/29/16 11/29/16 11/29/16 06:00 08:17 08:24 WBC RBC Hgb Hct MCV MCH MCHC RDW Plt Count Lymph % (Auto) [place] % (Auto) Lymph # Seg Neutrophils % Seg Neuts % (Manual) Lymphocytes % (Manual) Monocytes % (Manual) Seg Neutrophils # Man Lymphocytes # (Manual) Monocytes # (Manual) PT INR APTT Fibrinogen Heparin Anti-Xa Level < 0.10 L Sodium Potassium 3.0 L Chloride 107.3 H Carbon Dioxide 19 L BUN Creatinine 0.3 L Glucose 116 H POC Glucose 115 H Calcium 8.2 L 11/29/16 11/29/16 11/29/16 11:26 15:22 21:33 WBC RBC Hgb Hct MCV MCH MCHC RDW Plt Count Lymph % (Auto) [place] % (Auto) Lymph # Seg Neutrophils % Seg Neuts % (Manual) Lymphocytes % (Manual) Monocytes % (Manual) Seg Neutrophils # Man Lymphocytes # (Manual) Monocytes # (Manual) PT INR APTT Fibrinogen Heparin Anti-Xa Level Sodium Potassium Chloride Carbon Dioxide BUN Creatinine Glucose POC Glucose 172 H 167 H 152 H Calcium 11/30/16 11/30/16 11/30/16 01:30 04:18 04:18 WBC RBC 3.28 L Hgb 8.8 L Hct 27.3 L MCV 83 L MCH 27 L MCHC RDW 16.9 H Plt Count Lymph % (Auto) [place] % (Auto) 10.2 H Lymph # 0.9 L Seg Neutrophils % 73.3 H Seg Neuts % (Manual) Lymphocytes % (Manual) Monocytes % (Manual) Seg Neutrophils # Man Lymphocytes # (Manual) Monocytes # (Manual) PT INR APTT Fibrinogen Heparin Anti-Xa Level < 0.10 L Sodium Potassium Chloride Carbon Dioxide 19 L BUN 8 L Creatinine 0.3 L Glucose 132 H POC Glucose Calcium 7.9 L 11/30/16 07:32 WBC RBC Hgb Hct MCV MCH MCHC RDW Plt Count Lymph % (Auto) [place] % (Auto) Lymph # Seg Neutrophils % Seg Neuts % (Manual) Lymphocytes % (Manual) Monocytes % (Manual) Seg Neutrophils # Man Lymphocytes # (Manual) Monocytes # (Manual) PT INR APTT Fibrinogen Heparin Anti-Xa Level Sodium Potassium Chloride Carbon Dioxide BUN Creatinine Glucose POC Glucose 125 H Calcium
--- NOTE | 2016-11-30 09:30 | Progress Note ---
Assessment and Plan Assessment and plan: 1. Extensive bilateral pulmonary emboli with saddle emboli. Patient is status post bilateral EKOS catheter placement. Patient with successful EKOS catheter directed pulmonary artery thrombolytic therapy and percutaneous thrombectomy with residual thrombus in the right distal main extending into the right upper lobe. Patient also with successful IVC filter placement. We will discontinue heparin and start argatroban given the thrombocytopenia. Continue per interventional radiology. 2. Psoas abscess. Patient with fevers today. Continue current antibiotics. ? drug fever. If fevers persist, Consider ID consultation. Check chest x-ray, blood cultures and urinalysis. 3. Hypotension secondary to pulmonary emboli. Resolving. Patient currently off Levophed. 4. Diabetes type 2. Continue sliding-scale insulin and Accu-Cheks. 1800 ADA diet. 5. Obesity/OHS/LIVAN. CPAP at night. 6. Acute hypoxic respiratory failure. Etiology secondary to #1. Continue supportive care. 7. Thrombocytopenia. Patient with a greater than 50% drop in platelets since admission. Check HIT. Discontinue heparin and start argatroban. Discussed with pharmacy for dosing. The high probability of a clinically significant, sudden or life threatening deterioration of the [respiratory] system(s) required my full and direct attention, intervention and personal management. The aggregate critical care time was [31] minutes. This time is in addition to time spent performing reported procedures but includes the following: [x] Data Review and interpretation [x] Patient assessment and monitoring of vital signs [x] Documentation [x] Medication orders and management History Interval history: 36-year-old man with a history of hypertension, diabetes, obesity, chronic pain was transfer from [facility] to [facility] on the sixth floor. Patient was diagnosed with sepsis secondary to pneumonia, psoas abscess, MSSA bacteremia. He was in respiratory failure, he was trached. While on LTAC, the patient was tachycardic, CAT scan was done which shows extensive bilateral pulmonary emboli in the saddle emboli. The patient was started on heparin drip. He was then transferred to the ICU for further care. Patient had successful placement of bilateral EKOS catheters into the pulmonary arteries with angiographic confirmation. No new issues overnight. Hospitalist Physical - Constitutional Vitals: Temp Pulse Resp BP Pulse Ox 98.8 F 104 H 15 94/62 99 11/30/16 07:46 11/30/16 07:15 11/30/16 07:15 11/30/16 07:15 11/30/16 08:17 General appearance: Present: no acute distress - EENT Eyes: Present: PERRL, EOM intact ENT: hearing intact, clear oral mucosa, dentition normal - Neck Neck: Present: supple, normal ROM - Respiratory Respiratory effort: normal Respiratory: bilateral: CTA - Cardiovascular Rhythm: regular Heart Sounds: Present: S1 & S2. Absent: gallop, rub - Extremities Extremities: no ischemia, No edema, Full ROM - Abdominal General gastrointestinal: soft, non-tender, non-distended, normal bowel sounds - Integumentary Integumentary: Present: clear, warm, dry - Neurologic Neurologic: CNII-XII intact, moves all extremities Results - Labs CBC & Chem 7: 11/30/16 04:18 11/30/16 04:18 Labs: Laboratory Last Values WBC 6.4 K/mm3 (4.5-11.0) 11/30/16 04:18 RBC 3.28 M/mm3 (3.65-5.03) L 11/30/16 04:18 Hgb 8.8 gm/dl (11.8-15.2) L 11/30/16 04:18 Hct 27.3 % (35.5-45.6) L 11/30/16 04:18 MCV 83 fl (84-94) L 11/30/16 04:18 MCH 27 pg (28-32) L 11/30/16 04:18 MCHC 32 % (32-34) 11/30/16 04:18 RDW 16.9 % (13.2-15.2) H 11/30/16 04:18 Plt Count 148 K/mm3 (140-440) 11/30/16 04:18 Lymph % (Auto) 14.6 % (13.4-35.0) 11/30/16 04:18 [place] % (Auto) 10.2 % (0.0-7.3) H 11/30/16 04:18 Eos % (Auto) 1.3 % (0.0-4.3) 11/30/16 04:18 Baso % (Auto) 0.6 % (0.0-1.8) 11/30/16 04:18 Lymph # 0.9 K/mm3 (1.2-5.4) L 11/30/16 04:18 [place] # 0.7 K/mm3 (0.0-0.8) 11/30/16 04:18 Eos # 0.1 K/mm3 (0.0-0.4) 11/30/16 04:18 Baso # 0.0 K/mm3 (0.0-0.1) 11/30/16 04:18 Add Manual Diff Complete 11/27/16 17:00 Total Counted 100 11/27/16 17:00 Seg Neutrophils % 73.3 % (40.0-70.0) H 11/30/16 04:18 Seg Neuts % (Manual) 80.0 % (40.0-70.0) H 11/27/16 17:00 Band Neutrophils % 0 % 11/27/16 17:00 Lymphocytes % (Manual) 9.0 % (13.4-35.0) L 11/27/16 17:00 Reactive Lymphs % (Man) 0 % 11/27/16 17:00 Monocytes % (Manual) 9.0 % (0.0-7.3) H 11/27/16 17:00 Eosinophils % (Manual) 0 % (0.0-4.3) 11/27/16 17:00 Basophils % (Manual) 0 % (0.0-1.8) 11/27/16 17:00 Metamyelocytes % 2.0 % 11/27/16 17:00 Myelocytes % 0 % 11/27/16 17:00 Promyelocytes % 0 % 11/27/16 17:00 Blast Cells % 0 % 11/27/16 17:00 Nucleated RBC % Not Reportable 11/27/16 17:00 Seg Neutrophils # 4.7 K/mm3 (1.8-7.7) 11/30/16 04:18 Seg Neutrophils # Man 7.7 K/mm3 (1.8-7.7) 11/27/16 17:00 Band Neutrophils # 0.0 K/mm3 11/27/16 17:00 Lymphocytes # (Manual) 0.9 K/mm3 (1.2-5.4) L 11/27/16 17:00 Abs React Lymphs (Man) 0.0 K/mm3 11/27/16 17:00 Monocytes # (Manual) 0.9 K/mm3 (0.0-0.8) H 11/27/16 17:00 Eosinophils # (Manual) 0.0 K/mm3 (0.0-0.4) 11/27/16 17:00 Basophils # (Manual) 0.0 K/mm3 (0.0-0.1) 11/27/16 17:00 Metamyelocytes # 0.2 K/mm3 11/27/16 17:00 Myelocytes # 0.0 K/mm3 11/27/16 17:00 Promyelocytes # 0.0 K/mm3 11/27/16 17:00 Blast Cells # 0.0 K/mm3 11/27/16 17:00 WBC Morphology Not Reportable 11/27/16 17:00 Hypersegmented Neuts Not Reportable 11/27/16 17:00 Hyposegmented Neuts Not Reportable 11/27/16 17:00 Hypogranular Neuts Not Reportable 11/27/16 17:00 Smudge Cells Not Reportable 11/27/16 17:00 Toxic Granulation Not Reportable 11/27/16 17:00 Toxic Vacuolation Not Reportable 11/27/16 17:00 Dohle Bodies Not Reportable 11/27/16 17:00 Pelger-Huet Anomaly Not Reportable 11/27/16 17:00 Mati Rods Not Reportable 11/27/16 17:00 Platelet Estimate Consistent w auto 11/27/16 17:00 Clumped Platelets Not Reportable 11/27/16 17:00 Plt Clumps, EDTA Not Reportable 11/27/16 17:00 Large Platelets Not Reportable 11/27/16 17:00 Giant Platelets Not Reportable 11/27/16 17:00 Platelet Satelliting Not Reportable 11/27/16 17:00 Plt Morphology Comment Not Reportable 11/27/16 17:00 RBC Morphology Not Reportable 11/27/16 17:00 Dimorphic RBCs Not Reportable 11/27/16 17:00 Polychromasia Not Reportable 11/27/16 17:00 Hypochromasia Not Reportable 11/27/16 17:00 Poikilocytosis Not Reportable 11/27/16 17:00 Anisocytosis 1+ 11/27/16 17:00 Microcytosis Not Reportable 11/27/16 17:00 Macrocytosis Not Reportable 11/27/16 17:00 Spherocytes Not Reportable 11/27/16 17:00 Pappenheimer Bodies Not Reportable 11/27/16 17:00 Sickle Cells Not Reportable 11/27/16 17:00 Target Cells Not Reportable 11/27/16 17:00 Tear Drop Cells Not Reportable 11/27/16 17:00 Ovalocytes Not Reportable 11/27/16 17:00 Helmet Cells Not Reportable 11/27/16 17:00 [place] Bodies Not Reportable 11/27/16 17:00 [place] Rings Not Reportable 11/27/16 17:00 [place] Cells Not Reportable 11/27/16 17:00 Bite Cells Not Reportable 11/27/16 17:00 Crenated Cell Not Reportable 11/27/16 17:00 Elliptocytes Not Reportable 11/27/16 17:00 Acanthocytes (Spur) Not Reportable 11/27/16 17:00 Rouleaux Not Reportable 11/27/16 17:00 Hemoglobin C Crystals Not Reportable 11/27/16 17:00 Schistocytes Not Reportable 11/27/16 17:00 Malaria parasites Not Reportable 11/27/16 17:00 Michael Bodies Not Reportable 11/27/16 17:00 Hem Pathologist Commnt No 11/27/16 17:00 PT 19.7 Sec. (12.2-14.9) H 11/28/16 05:00 INR 1.67 (0.87-1.13) H 11/28/16 05:00 APTT 65.5 Sec. (24.2-36.6) H* 11/28/16 14:00 Fibrinogen 474 mg/dl (211-480) 11/27/16 23:00 Heparin Anti-Xa Level < 0.10 U.I./ml (0.3-0.7) L 11/30/16 01:30 Sodium 137 mmol/L (137-145) 11/30/16 04:18 Potassium 3.6 mmol/L (3.6-5.0) 11/30/16 04:18 Chloride 100.3 mmol/L (98-107) 11/30/16 04:18 Carbon Dioxide 19 mmol/L (22-30) L 11/30/16 04:18 Anion Gap 21 mmol/L 11/30/16 04:18 BUN 8 mg/dL (9-20) L 11/30/16 04:18 Creatinine 0.3 mg/dL (0.8-1.5) L 11/30/16 04:18 Estimated GFR > 60 ml/min 11/30/16 04:18 BUN/Creatinine Ratio 26.66 % 11/30/16 04:18 Glucose 132 mg/dL (75-100) H 11/30/16 04:18 POC Glucose 125 (70-105) H 11/30/16 07:32 Calcium 7.9 mg/dL (8.4-10.2) L 11/30/16 04:18 Blood Type O POSITIVE 11/27/16 02:58 Antibody Screen Negative 11/27/16 02:58
--- NOTE | 2016-11-30 10:04 | XRay Report ---
AP CHEST: HISTORY: Fever AP view of the chest demonstrates a normal mediastinal and cardiac contour with clear lungs and normal bony and soft tissue structures. Right arm PICC remains in good position. No change since 11/26/16. IMPRESSION: Unremarkable AP chest.
[2016-11-30] MEDS: DOLOPHINE PO SCH (10:10)
[2016-11-30 10:35] LABS: Albumin 2.7 g/dL (3.9-5); Albumin/Globulin Ratio 0.8 %; Bilirubin,Direct 0.2 mg/dL (0-0.2); Bilirubin,Indirect 0.5 mg/dL; Bilirubin,Total 0.7 mg/dL (0.1-1.2)
[2016-11-30 10:40] LABS: Bilirubin,Urine NEG (Negative); Blood,Urine SM (Negative); Ketones,Urine NEG (Negative); Leukocyte Esterase,Urine SM (Negative); Mucus,Urine 1+ /HPF; Nitrite,Urine NEG (Negative); Uric Acid Crystals,Urine 1+
[2016-11-30] MEDS: NOVOLOG SUB-Q SCH ×2 (14:11→15:23)
[2016-11-30] MEDS: NORCO 5/325 PO PRN ×2 (14:15→22:00)
[2016-11-30] MEDS: ARGATROBAN 250 MG in NACL 0.9% 250ML 247.5 ML IV SCH ×2 (14:17→18:47)
[2016-11-30 17:50] LABS: INR 2.13 (0.87-1.13)
[2016-11-30 17:51] LABS: Partial Thromboplastin Time 55.4 Sec. (24.2-36.6)
[2016-11-30] MEDS: PEPCID PO SCH (22:00)
[2016-12-01] MEDS: NOVOLOG SUB-Q SCH ×4 (00:24→22:30)
[2016-12-01] MEDS: ceFAZolin 2 GM in NACL 0.9% 100 ML IV SCH ×2 (05:15→15:16)
[2016-12-01] MEDS: NORCO 5/325 PO PRN ×2 (05:15→20:15)
[2016-12-01] MEDS: NYSTOP TP SCH ×3 (05:16→23:30)
[2016-12-01 07:42] LABS: Basophils % (Auto) 0.7 % (0.0-1.8); Eosinophils % (Auto) 3.3 % (0.0-4.3); Hematocrit 28.4 % (35.5-45.6); Hemoglobin 9.1 gm/dl (11.8-15.2); Mean Corpuscular HGB Conc 32 % (32-34); Mean Corpuscular Hemoglobin 26 pg (28-32); Mean Corpuscular Volume 82 fl (84-94); Platelet Count 181 K/mm3 (140-440); Red Blood Count 3.45 M/mm3 (3.65-5.03); Red Cell Distribution Width 17.2 % (13.2-15.2); White Blood Count 4.9 K/mm3 (4.5-11.0)
--- NOTE | 2016-12-01 09:05 | Progress Note ---
Assessment and Plan Assessment and plan: 1. Extensive bilateral pulmonary emboli with saddle emboli. Patient is status post bilateral EKOS catheter placement. Patient with successful EKOS catheter directed pulmonary artery thrombolytic therapy and percutaneous thrombectomy with residual thrombus in the right distal main extending into the right upper lobe. Patient also with successful IVC filter placement. We will discontinue heparin and start argatroban given the thrombocytopenia. Continue per interventional radiology. 2. Psoas abscess. Patient with fevers today. Continue current antibiotics. ? drug fever. If fevers persist, Consider ID consultation. Check chest x-ray, blood cultures and urinalysis. 3. Hypotension secondary to pulmonary emboli. Resolved. 4. Diabetes type 2. Continue sliding-scale insulin and Accu-Cheks. 1800 ADA diet. 5. Obesity/OHS/LIVAN. CPAP at night. 6. Acute hypoxic respiratory failure. Etiology secondary to #1. Continue supportive care. 7. Thrombocytopenia. Patient with a greater than 50% drop in platelets since admission. Check HIT. Discontinue heparin and start argatroban. Discussed with pharmacy for dosing. The high probability of a clinically significant, sudden or life threatening deterioration of the [respiratory] system(s) required my full and direct attention, intervention and personal management. The aggregate critical care time was [31] minutes. This time is in addition to time spent performing reported procedures but includes the following: [x] Data Review and interpretation [x] Patient assessment and monitoring of vital signs [x] Documentation [x] Medication orders and management History Interval history: 36-year-old man with a history of hypertension, diabetes, obesity, chronic pain was transfer from [facility] to [facility] on the sixth floor. Patient was diagnosed with sepsis secondary to pneumonia, psoas abscess, MSSA bacteremia. He was in respiratory failure, he was trached. While on LTAC, the patient was tachycardic, CAT scan was done which shows extensive bilateral pulmonary emboli in the saddle emboli. The patient was started on heparin drip. Patient had successful placement of bilateral EKOS catheters into the pulmonary arteries with angiographic confirmation. No new issues overnight. Hospitalist Physical - Constitutional Vitals: Temp Pulse Resp BP Pulse Ox 97.6 F 118 H 18 100/78 96 12/01/16 05:10 12/01/16 05:10 12/01/16 05:10 12/01/16 05:10 12/01/16 05:10 General appearance: Present: no acute distress - EENT Eyes: Present: PERRL, EOM intact ENT: hearing intact, clear oral mucosa, dentition normal - Neck Neck: Present: supple, normal ROM - Respiratory Respiratory effort: normal Respiratory: bilateral: CTA - Cardiovascular Rhythm: regular Heart Sounds: Present: S1 & S2. Absent: gallop, rub - Extremities Extremities: no ischemia, No edema, Full ROM - Abdominal General gastrointestinal: soft, non-tender, non-distended, normal bowel sounds - Integumentary Integumentary: Present: clear, warm, dry - Neurologic Neurologic: CNII-XII intact, moves all extremities Results - Labs CBC & Chem 7: 12/01/16 07:16 11/30/16 04:18 Labs: Laboratory Last Values WBC 4.9 K/mm3 (4.5-11.0) 12/01/16 07:16 RBC 3.45 M/mm3 (3.65-5.03) L 12/01/16 07:16 Hgb 9.1 gm/dl (11.8-15.2) L 12/01/16 07:16 Hct 28.4 % (35.5-45.6) L 12/01/16 07:16 MCV 82 fl (84-94) L 12/01/16 07:16 MCH 26 pg (28-32) L 12/01/16 07:16 MCHC 32 % (32-34) 12/01/16 07:16 RDW 17.2 % (13.2-15.2) H 12/01/16 07:16 Plt Count 181 K/mm3 (140-440) 12/01/16 07:16 Lymph % (Auto) 17.6 % (13.4-35.0) 12/01/16 07:16 Sac % (Auto) 10.8 % (0.0-7.3) H 12/01/16 07:16 Eos % (Auto) 3.3 % (0.0-4.3) 12/01/16 07:16 Baso % (Auto) 0.7 % (0.0-1.8) 12/01/16 07:16 Lymph # 0.9 K/mm3 (1.2-5.4) L 12/01/16 07:16 Sac # 0.5 K/mm3 (0.0-0.8) 12/01/16 07:16 Eos # 0.2 K/mm3 (0.0-0.4) 12/01/16 07:16 Baso # 0.0 K/mm3 (0.0-0.1) 12/01/16 07:16 Add Manual Diff Complete 11/27/16 17:00 Total Counted 100 11/27/16 17:00 Seg Neutrophils % 67.6 % (40.0-70.0) 12/01/16 07:16 Seg Neuts % (Manual) 80.0 % (40.0-70.0) H 11/27/16 17:00 Band Neutrophils % 0 % 11/27/16 17:00 Lymphocytes % (Manual) 9.0 % (13.4-35.0) L 11/27/16 17:00 Reactive Lymphs % (Man) 0 % 11/27/16 17:00 Monocytes % (Manual) 9.0 % (0.0-7.3) H 11/27/16 17:00 Eosinophils % (Manual) 0 % (0.0-4.3) 11/27/16 17:00 Basophils % (Manual) 0 % (0.0-1.8) 11/27/16 17:00 Metamyelocytes % 2.0 % 11/27/16 17:00 Myelocytes % 0 % 11/27/16 17:00 Promyelocytes % 0 % 11/27/16 17:00 Blast Cells % 0 % 11/27/16 17:00 Nucleated RBC % Not Reportable 11/27/16 17:00 Seg Neutrophils # 3.3 K/mm3 (1.8-7.7) 12/01/16 07:16 Seg Neutrophils # Man 7.7 K/mm3 (1.8-7.7) 11/27/16 17:00 Band Neutrophils # 0.0 K/mm3 11/27/16 17:00 Lymphocytes # (Manual) 0.9 K/mm3 (1.2-5.4) L 11/27/16 17:00 Abs React Lymphs (Man) 0.0 K/mm3 11/27/16 17:00 Monocytes # (Manual) 0.9 K/mm3 (0.0-0.8) H 11/27/16 17:00 Eosinophils # (Manual) 0.0 K/mm3 (0.0-0.4) 11/27/16 17:00 Basophils # (Manual) 0.0 K/mm3 (0.0-0.1) 11/27/16 17:00 Metamyelocytes # 0.2 K/mm3 11/27/16 17:00 Myelocytes # 0.0 K/mm3 11/27/16 17:00 Promyelocytes # 0.0 K/mm3 11/27/16 17:00 Blast Cells # 0.0 K/mm3 11/27/16 17:00 WBC Morphology Not Reportable 11/27/16 17:00 Hypersegmented Neuts Not Reportable 11/27/16 17:00 Hyposegmented Neuts Not Reportable 11/27/16 17:00 Hypogranular Neuts Not Reportable 11/27/16 17:00 Smudge Cells Not Reportable 11/27/16 17:00 Toxic Granulation Not Reportable 11/27/16 17:00 Toxic Vacuolation Not Reportable 11/27/16 17:00 Dohle Bodies Not Reportable 11/27/16 17:00 Pelger-Huet Anomaly Not Reportable 11/27/16 17:00 Mati Rods Not Reportable 11/27/16 17:00 Platelet Estimate Consistent w auto 11/27/16 17:00 Clumped Platelets Not Reportable 11/27/16 17:00 Plt Clumps, EDTA Not Reportable 11/27/16 17:00 Large Platelets Not Reportable 11/27/16 17:00 Giant Platelets Not Reportable 11/27/16 17:00 Platelet Satelliting Not Reportable 11/27/16 17:00 Plt Morphology Comment Not Reportable 11/27/16 17:00 RBC Morphology Not Reportable 11/27/16 17:00 Dimorphic RBCs Not Reportable 11/27/16 17:00 Polychromasia Not Reportable 11/27/16 17:00 Hypochromasia Not Reportable 11/27/16 17:00 Poikilocytosis Not Reportable 11/27/16 17:00 Anisocytosis 1+ 11/27/16 17:00 Microcytosis Not Reportable 11/27/16 17:00 Macrocytosis Not Reportable 11/27/16 17:00 Spherocytes Not Reportable 11/27/16 17:00 Pappenheimer Bodies Not Reportable 11/27/16 17:00 Sickle Cells Not Reportable 11/27/16 17:00 Target Cells Not Reportable 11/27/16 17:00 Tear Drop Cells Not Reportable 11/27/16 17:00 Ovalocytes Not Reportable 11/27/16 17:00 Helmet Cells Not Reportable 11/27/16 17:00 [place] Bodies Not Reportable 11/27/16 17:00 [place] Rings Not Reportable 11/27/16 17:00 [place] Cells Not Reportable 11/27/16 17:00 Bite Cells Not Reportable 11/27/16 17:00 Crenated Cell Not Reportable 11/27/16 17:00 Elliptocytes Not Reportable 11/27/16 17:00 Acanthocytes (Spur) Not Reportable 11/27/16 17:00 Rouleaux Not Reportable 11/27/16 17:00 Hemoglobin C Crystals Not Reportable 11/27/16 17:00 Schistocytes Not Reportable 11/27/16 17:00 Malaria parasites Not Reportable 11/27/16 17:00 Michael Bodies Not Reportable 11/27/16 17:00 Hem Pathologist Commnt No 11/27/16 17:00 PT 23.9 Sec. (12.2-14.9) H 11/30/16 17:15 INR 2.13 (0.87-1.13) H 11/30/16 17:15 APTT 70.3 Sec. (24.2-36.6) H* 12/01/16 04:00 Fibrinogen 474 mg/dl (211-480) 11/27/16 23:00 Heparin Anti-Xa Level 0.14 U.I./ml (0.3-0.7) L 11/30/16 Unknown Sodium 137 mmol/L (137-145) 11/30/16 04:18 Potassium 3.6 mmol/L (3.6-5.0) 11/30/16 04:18 Chloride 100.3 mmol/L (98-107) 11/30/16 04:18 Carbon Dioxide 19 mmol/L (22-30) L 11/30/16 04:18 Anion Gap 21 mmol/L 11/30/16 04:18 BUN 8 mg/dL (9-20) L 11/30/16 04:18 Creatinine 0.3 mg/dL (0.8-1.5) L 11/30/16 04:18 Estimated GFR > 60 ml/min 11/30/16 04:18 BUN/Creatinine Ratio 26.66 % 11/30/16 04:18 Glucose 132 mg/dL (75-100) H 11/30/16 04:18 POC Glucose 157 (70-105) H 11/30/16 20:48 Calcium 7.9 mg/dL (8.4-10.2) L 11/30/16 04:18 Total Bilirubin 0.7 mg/dL (0.1-1.2) 11/30/16 04:18 Direct Bilirubin 0.2 mg/dL (0-0.2) 11/30/16 04:18 Indirect Bilirubin 0.5 mg/dL 11/30/16 04:18 AST 287 units/L (5-40) H 11/30/16 04:18 ALT 841 units/L (7-56) H 11/30/16 04:18 Alkaline Phosphatase 115 units/L (35-129) 11/30/16 04:18 Total Protein 6.0 g/dL (6.3-8.2) L 11/30/16 04:18 Albumin 2.7 g/dL (3.9-5) L 11/30/16 04:18 Albumin/Globulin Ratio 0.8 % 11/30/16 04:18 Urine Color Yellow (Yellow) 11/30/16 Unknown Urine Turbidity Slightly-cloudy (Clear) 11/30/16 Unknown Urine pH 5.0 (5.0-7.0) 11/30/16 Unknown Ur Specific [place] 1.020 (1.003-1.030) 11/30/16 Unknown Urine Protein 30 mg/dl mg/dL (Negative) 11/30/16 Unknown Urine Glucose (UA) Neg mg/dL (Negative) 11/30/16 Unknown Urine Ketones Neg mg/dL (Negative) 11/30/16 Unknown Urine Blood Sm (Negative) 11/30/16 Unknown Urine Nitrite Neg (Negative) 11/30/16 Unknown Urine Bilirubin Neg (Negative) 11/30/16 Unknown Urine Urobilinogen 2.0 mg/dL (<2.0) 11/30/16 Unknown Ur Leukocyte Esterase Sm (Negative) 11/30/16 Unknown Urine WBC (Auto) 19.0 /HPF (0.0-6.0) H 11/30/16 Unknown Urine RBC (Auto) 5.0 /HPF (0.0-6.0) 11/30/16 Unknown U Epithel Cells (Auto) < 1.0 /HPF (0-13.0) 11/30/16 Unknown Uric Acid Crystals 1+ 11/30/16 Unknown Urine Mucus 1+ /HPF 11/30/16 Unknown Blood Type O POSITIVE 11/27/16 02:58 Antibody Screen Negative 11/27/16 02:58
[2016-12-01] MEDS: DOLOPHINE PO SCH (09:52)
[2016-12-01] MEDS: PEPCID PO SCH ×2 (09:57→22:30)
[2016-12-01] MEDS: ATIVAN IV PRN (09:58)
--- NOTE | 2016-12-01 12:11 | Progress Note ---
Assessment and Plan Bilateral pulmonary emboli with saddle emboli s/p EKOS, thrombectomy, IVC filter placement heparin gtt to be transitioned to OAC, per vascular Echo 11/2016: EF 45-50%, RA/RV moderately dilated, RVSP 65mmHg Pulmonary HTN from pe Possible HIT awaiting panel and hematology consult pending , once cleared suggest elquis 10mg bid for one week and then 5mg bid Hypotension-> resolved Acute respiratory failure-> resolved Diabetes Psoas abscess Subjective Date of service: 12/01/16 Principal diagnosis: saddle emboli with hypotension, status post thrombolysis Interval history: pt lying in bed no chest pain occasional sob Objective Vital Signs Temp Pulse Pulse Pulse Resp BP BP 12/01/16 10:00 100 H 100 H 20 12/01/16 08:00 98.5 F 100 H 20 106/62 12/01/16 05:10 97.6 F 118 H 18 100/78 12/01/16 04:00 95 H 12/01/16 03:15 12/01/16 00:12 98 F 111 H 18 100/64 11/30/16 23:26 99 H 20 11/30/16 18:00 102 H 13 99/61 11/30/16 17:45 106 H 15 100/61 11/30/16 17:31 102 H 15 100/61 11/30/16 17:15 105 H 14 100/61 11/30/16 17:00 103 H 12 100/61 11/30/16 16:47 103 H 17 105/72 11/30/16 16:45 102 H 13 105/72 11/30/16 16:31 100 H 10 L 105/72 11/30/16 16:20 101 H 12 105/72 11/30/16 16:15 100 H 12 105/72 11/30/16 16:00 97.2 F L 99 H 12 105/72 11/30/16 15:59 100 H 11 L 105/72 11/30/16 15:45 99 H 11 L 99/66 11/30/16 15:31 99 H 13 99/66 11/30/16 15:15 102 H 11 L 99/66 11/30/16 15:00 104 H 13 99/66 11/30/16 14:45 107 H 12 91/58 11/30/16 14:31 111 H 16 91/58 11/30/16 14:15 111 H 14 91/58 16 14:00 110 H 14 91/58 16 13:45 109 H 15 99/64 16 13:31 108 H 14 99/64 16 13:15 105 H 16 97/65 11/30/16 13:00 107 H 16 97/65 11/30/16 12:45 108 H 14 99/64 11/30/16 12:37 107 H 21 99/64 11/30/16 12:31 107 H 15 99/64 11/30/16 12:15 106 H 15 99/64 Pulse Ox 12/01/16 10:00 97 12/01/16 08:00 97 12/01/16 05:10 96 12/01/16 04:00 12/01/16 03:15 96 12/01/16 00:12 97 11/30/16 23:26 99 11/30/16 18:00 99 11/30/16 17:45 100 11/30/16 17:31 100 11/30/16 17:15 98 11/30/16 17:00 99 11/30/16 16:47 100 11/30/16 16:45 99 11/30/16 16:31 98 11/30/16 16:20 99 11/30/16 16:15 98 11/30/16 16:00 98 11/30/16 15:59 98 11/30/16 15:45 99 11/30/16 15:31 98 11/30/16 15:15 98 11/30/16 15:00 98 11/30/16 14:45 98 11/30/16 14:31 98 11/30/16 14:15 98 11/30/16 14:00 98 11/30/16 13:45 97 11/30/16 13:31 100 11/30/16 13:15 100 11/30/16 13:00 99 11/30/16 12:45 100 11/30/16 12:37 98 11/30/16 12:31 96 11/30/16 12:15 97 - Physical Examination General: No Apparent Distress HEENT: Positive: Normocephaly, Mucus Membranes Moist Neck: Positive: neck supple, trachea midline Cardiac: Positive: Reg Rate and Rhythm, Audible Murmur (2/6) Lungs: Positive: clear to auscultation Neuro: Positive: Grossly Intact Abdomen: Positive: Soft, Active Bowel Sounds. Negative: Tender Skin: Positive: Clear. Negative: Rash Extremities: Present: normal. Absent: edema - Labs and Meds Coagulation 11/30/16 11/30/16 12/01/16 Range/Units 17:15 23:00 04:00 PT 23.9 H (12.2-14.9) Sec. INR 2.13 H (0.87-1.13) APTT 55.4 H 151.3 H* 70.3 H* (24.2-36.6) Sec. 12/01/16 Range/Units 10:30 PT (12.2-14.9) Sec. INR (0.87-1.13) APTT 52.8 H (24.2-36.6) Sec. CBC 12/01/16 Range/Units 07:16 WBC 4.9 (4.5-11.0) K/mm3 RBC 3.45 L (3.65-5.03) M/mm3 Hgb 9.1 L (11.8-15.2) gm/dl Hct 28.4 L (35.5-45.6) % Plt Count 181 (140-440) K/mm3 Lymph # 0.9 L (1.2-5.4) K/mm3 [place] # 0.5 (0.0-0.8) K/mm3 Eos # 0.2 (0.0-0.4) K/mm3 Baso # 0.0 (0.0-0.1) K/mm3 - Imaging and Cardiology EKG: image reviewed (st, 115, read by me) Echo: report reviewed (11/2016: EF 45-50%, RA/RV moderately dilated, RVSP 65mmHg ) - Telemetry EKG Rhythm: Sinus Tachycardia (at 102 no afib or vtach noted) - EKG Sinus rhythms and dysrhythmias: sinus tachycardia Repolarization changes or abnormalities: nonspecific abnormality, ST segment, and/or T wave
--- NOTE | 2016-12-01 12:16 | Progress Note ---
Assessment and Plan - Patient Problems (1) Pulmonary embolism Current Visit: Yes Status: Acute Qualifiers: Pulmonary embolism type: saddle Chronicity: acute Acute cor pulmonale presence: with acute cor pulmonale Qualified Code(s): I26.02 - Saddle embolus of pulmonary artery with acute cor pulmonale (2) Acute respiratory failure with hypoxia Current Visit: Yes Status: Acute (3) Morbid (severe) obesity due to excess calories Current Visit: Yes Status: Acute (4) LIVAN on CPAP Current Visit: Yes Status: Acute Subjective Principal diagnosis: saddle emboli with hypotension, status post thrombolysis Interval history: feels better less sob Objective Vital Signs - 12hr 12/01/16 12/01/16 12/01/16 03:15 04:00 05:10 Temperature 97.6 F Pulse Rate 95 H Pulse Rate [ Left Radial] Pulse Rate [ 118 H Right Dorsalis Pedis] Respiratory 18 Rate Blood Pressure 100/78 [Left Arm] O2 Sat by Pulse 96 96 Oximetry 12/01/16 12/01/16 08:00 10:00 Temperature 98.5 F Pulse Rate 100 H Pulse Rate [ 100 H Left Radial] Pulse Rate [ 100 H Right Dorsalis Pedis] Respiratory 20 20 Rate Blood Pressure 106/62 [Left Arm] O2 Sat by Pulse 97 97 Oximetry Constitutional: no acute distress, alert, other (morbidly obese, alert) Eyes: non-icteric ENT: other (crowded oropharynx) Neck: supple, no JVD Effort: normal Ascultation: Bilateral: clear, diminished breath sounds (decreased expansion) Cardiovascular: regular rate and rhythm Gastrointestinal: normoactive bowel sounds, non-distended Integumentary: normal Extremities: no cyanosis, no edema, pulses normal Neurologic: normal mental status, non-focal exam, pupils equal and round, CN II- XII normal CBC and BMP: 12/01/16 07:16 11/30/16 04:18 ABG, PT/INR, D-dimer: PT/INR, D-dimer PT 23.9 Sec. (12.2-14.9) H 11/30/16 17:15 INR 2.13 (0.87-1.13) H 11/30/16 17:15 Abnormal lab findings: Abnormal Labs 11/27/16 11/27/16 11/27/16 02:04 02:24 02:58 WBC 11.1 H RBC Hgb 11.6 L Hct MCV 83 L MCH 26 L MCHC 31 L RDW 17.0 H Plt Count Lymph % (Auto) [place] % (Auto) Lymph # Seg Neutrophils % Seg Neuts % (Manual) Lymphocytes % (Manual) Monocytes % (Manual) 15.0 H Seg Neutrophils # Man Lymphocytes # (Manual) Monocytes # (Manual) 1.7 H PT INR APTT Fibrinogen Heparin Anti-Xa Level Sodium 133 L Potassium Chloride 96.4 L Carbon Dioxide 16 L D BUN 23 H Creatinine 0.5 L D Glucose 214 H POC Glucose 211 H Calcium AST ALT Total Protein Albumin Urine WBC (Auto) 11/27/16 11/27/16 11/27/16 02:58 06:20 06:20 WBC 13.2 H RBC Hgb 11.1 L Hct MCV 82 L MCH 26 L MCHC 31 L RDW 16.9 H Plt Count 472 H Lymph % (Auto) [place] % (Auto) Lymph # Seg Neutrophils % Seg Neuts % (Manual) 82.0 H Lymphocytes % (Manual) 6.0 L Monocytes % (Manual) 9.0 H Seg Neutrophils # Man 10.8 H Lymphocytes # (Manual) 0.8 L Monocytes # (Manual) 1.2 H PT 15.9 H 18.5 H INR 1.28 H 1.54 H APTT 46.2 H Fibrinogen 603 H Heparin Anti-Xa Level Sodium Potassium Chloride Carbon Dioxide BUN Creatinine Glucose POC Glucose Calcium AST ALT Total Protein Albumin Urine WBC (Auto) 11/27/16 11/27/16 11/27/16 06:20 06:20 09:45 WBC 11.6 H RBC Hgb 11.2 L Hct 34.5 L MCV 81 L MCH 26 L MCHC RDW 17.0 H Plt Count Lymph % (Auto) [place] % (Auto) Lymph # Seg Neutrophils % Seg Neuts % (Manual) 85.0 H Lymphocytes % (Manual) 3.0 L Monocytes % (Manual) Seg Neutrophils # Man 9.9 H Lymphocytes # (Manual) 0.3 L Monocytes # (Manual) PT INR APTT Fibrinogen Heparin Anti-Xa Level 0.99 H Sodium 136 L Potassium Chloride 96.6 L Carbon Dioxide 17 L BUN 23 H Creatinine 0.6 L Glucose 223 H POC Glucose Calcium AST ALT Total Protein Albumin Urine WBC (Auto) 11/27/16 11/27/16 11/27/16 15:01 17:00 17:00 WBC RBC Hgb 10.9 L Hct 33.2 L MCV 81 L MCH 27 L MCHC RDW 16.9 H Plt Count Lymph % (Auto) [place] % (Auto) Lymph # Seg Neutrophils % Seg Neuts % (Manual) 80.0 H Lymphocytes % (Manual) 9.0 L Monocytes % (Manual) 9.0 H Seg Neutrophils # Man Lymphocytes # (Manual) 0.9 L Monocytes # (Manual) 0.9 H PT INR APTT Fibrinogen 533 H Heparin Anti-Xa Level 0.81 H Sodium Potassium Chloride Carbon Dioxide BUN Creatinine Glucose POC Glucose 254 H Calcium AST ALT Total Protein Albumin Urine WBC (Auto) 11/27/16 11/27/16 11/27/16 17:41 22:30 23:00 WBC RBC Hgb 10.0 L Hct 30.4 L MCV 82 L MCH 27 L MCHC RDW 17.0 H Plt Count Lymph % (Auto) [place] % (Auto) 8.2 H Lymph # Seg Neutrophils % 75.1 H Seg Neuts % (Manual) Lymphocytes % (Manual) Monocytes % (Manual) Seg Neutrophils # Man Lymphocytes # (Manual) Monocytes # (Manual) PT INR APTT Fibrinogen Heparin Anti-Xa Level Sodium Potassium Chloride Carbon Dioxide BUN Creatinine Glucose POC Glucose 242 H 199 H Calcium AST ALT Total Protein Albumin Urine WBC (Auto) 11/28/16 11/28/16 11/28/16 05:00 05:00 05:00 WBC RBC Hgb 9.8 L Hct 30.0 L MCV 82 L MCH 27 L MCHC RDW 17.1 H Plt Count Lymph % (Auto) [place] % (Auto) 7.7 H Lymph # 1.1 L Seg Neutrophils % 75.1 H Seg Neuts % (Manual) Lymphocytes % (Manual) Monocytes % (Manual) Seg Neutrophils # Man Lymphocytes # (Manual) Monocytes # (Manual) PT 19.7 H INR 1.67 H APTT 125.9 H* Fibrinogen Heparin Anti-Xa Level Sodium Potassium Chloride 107.3 H Carbon Dioxide 17 L BUN Creatinine 0.4 L Glucose 164 H POC Glucose Calcium 8.3 L AST ALT Total Protein Albumin Urine WBC (Auto) 11/28/16 11/28/16 11/28/16 07:40 14:00 14:00 WBC RBC Hgb Hct MCV MCH MCHC RDW Plt Count Lymph % (Auto) [place] % (Auto) Lymph # Seg Neutrophils % Seg Neuts % (Manual) Lymphocytes % (Manual) Monocytes % (Manual) Seg Neutrophils # Man Lymphocytes # (Manual) Monocytes # (Manual) PT INR APTT 65.5 H* Fibrinogen Heparin Anti-Xa Level 0.23 L Sodium Potassium Chloride Carbon Dioxide BUN Creatinine Glucose POC Glucose 174 H Calcium AST ALT Total Protein Albumin Urine WBC (Auto) 11/28/16 11/28/16 11/28/16 16:12 21:40 21:48 WBC RBC 3.31 L Hgb 8.8 L Hct 27.0 L MCV 82 L MCH 27 L MCHC RDW 16.8 H Plt Count Lymph % (Auto) 12.9 L [place] % (Auto) 7.7 H Lymph # 0.8 L Seg Neutrophils % 78.5 H Seg Neuts % (Manual) Lymphocytes % (Manual) Monocytes % (Manual) Seg Neutrophils # Man Lymphocytes # (Manual) Monocytes # (Manual) PT INR APTT Fibrinogen Heparin Anti-Xa Level Sodium Potassium Chloride Carbon Dioxide BUN Creatinine Glucose POC Glucose 144 H 153 H Calcium AST ALT Total Protein Albumin Urine WBC (Auto) 11/28/16 11/28/16 11/29/16 22:07 23:36 06:00 WBC RBC 3.18 L Hgb 8.6 L Hct 26.3 L MCV 83 L MCH 27 L MCHC RDW 16.6 H Plt Count Lymph % (Auto) [place] % (Auto) 8.5 H Lymph # 0.9 L Seg Neutrophils % 73.5 H Seg Neuts % (Manual) Lymphocytes % (Manual) Monocytes % (Manual) Seg Neutrophils # Man Lymphocytes # (Manual) Monocytes # (Manual) PT INR APTT Fibrinogen Heparin Anti-Xa Level < 0.10 L Sodium Potassium Chloride Carbon Dioxide BUN Creatinine Glucose POC Glucose 158 H Calcium AST ALT Total Protein Albumin Urine WBC (Auto) 11/29/16 11/29/16 11/29/16 06:00 08:17 08:24 WBC RBC Hgb Hct MCV MCH MCHC RDW Plt Count Lymph % (Auto) [place] % (Auto) Lymph # Seg Neutrophils % Seg Neuts % (Manual) Lymphocytes % (Manual) Monocytes % (Manual) Seg Neutrophils # Man Lymphocytes # (Manual) Monocytes # (Manual) PT INR APTT Fibrinogen Heparin Anti-Xa Level < 0.10 L Sodium Potassium 3.0 L Chloride 107.3 H Carbon Dioxide 19 L BUN Creatinine 0.3 L Glucose 116 H POC Glucose 115 H Calcium 8.2 L AST ALT Total Protein Albumin Urine WBC (Auto) 11/29/16 11/29/16 11/29/16 11:26 15:22 21:33 WBC RBC Hgb Hct MCV MCH MCHC RDW Plt Count Lymph % (Auto) [place] % (Auto) Lymph # Seg Neutrophils % Seg Neuts % (Manual) Lymphocytes % (Manual) Monocytes % (Manual) Seg Neutrophils # Man Lymphocytes # (Manual) Monocytes # (Manual) PT INR APTT Fibrinogen Heparin Anti-Xa Level Sodium Potassium Chloride Carbon Dioxide BUN Creatinine Glucose POC Glucose 172 H 167 H 152 H Calcium AST ALT Total Protein Albumin Urine WBC (Auto) 11/30/16 11/30/16 11/30/16 01:30 04:18 04:18 WBC RBC 3.28 L Hgb 8.8 L Hct 27.3 L MCV 83 L MCH 27 L MCHC RDW 16.9 H Plt Count Lymph % (Auto) [place] % (Auto) 10.2 H Lymph # 0.9 L Seg Neutrophils % 73.3 H Seg Neuts % (Manual) Lymphocytes % (Manual) Monocytes % (Manual) Seg Neutrophils # Man Lymphocytes # (Manual) Monocytes # (Manual) PT INR APTT Fibrinogen Heparin Anti-Xa Level < 0.10 L Sodium Potassium Chloride Carbon Dioxide 19 L BUN 8 L Creatinine 0.3 L Glucose 132 H POC Glucose Calcium 7.9 L AST ALT Total Protein Albumin Urine WBC (Auto) 11/30/16 11/30/16 11/30/16 04:18 07:32 09:27 WBC RBC Hgb Hct MCV MCH MCHC RDW Plt Count Lymph % (Auto) [place] % (Auto) Lymph # Seg Neutrophils % Seg Neuts % (Manual) Lymphocytes % (Manual) Monocytes % (Manual) Seg Neutrophils # Man Lymphocytes # (Manual) Monocytes # (Manual) PT INR APTT 50.1 H Fibrinogen Heparin Anti-Xa Level Sodium Potassium Chloride Carbon Dioxide BUN Creatinine Glucose POC Glucose 125 H Calcium AST 287 H ALT 841 H Total Protein 6.0 L Albumin 2.7 L Urine WBC (Auto) 11/30/16 11/30/16 11/30/16 11:27 16:49 17:15 WBC RBC Hgb Hct MCV MCH MCHC RDW Plt Count Lymph % (Auto) [place] % (Auto) Lymph # Seg Neutrophils % Seg Neuts % (Manual) Lymphocytes % (Manual) Monocytes % (Manual) Seg Neutrophils # Man Lymphocytes # (Manual) Monocytes # (Manual) PT 23.9 H INR 2.13 H APTT 55.4 H Fibrinogen Heparin Anti-Xa Level Sodium Potassium Chloride Carbon Dioxide BUN Creatinine Glucose POC Glucose 161 H 140 H Calcium AST ALT Total Protein Albumin Urine WBC (Auto) 11/30/16 11/30/16 11/30/16 20:48 23:00 Unknown WBC RBC Hgb Hct MCV MCH MCHC RDW Plt Count Lymph % (Auto) [place] % (Auto) Lymph # Seg Neutrophils % Seg Neuts % (Manual) Lymphocytes % (Manual) Monocytes % (Manual) Seg Neutrophils # Man Lymphocytes # (Manual) Monocytes # (Manual) PT INR APTT 151.3 H* Fibrinogen Heparin Anti-Xa Level 0.14 L Sodium Potassium Chloride Carbon Dioxide BUN Creatinine Glucose POC Glucose 157 H Calcium AST ALT Total Protein Albumin Urine WBC (Auto) 11/30/16 12/01/16 12/01/16 Unknown 04:00 07:16 WBC RBC 3.45 L Hgb 9.1 L Hct 28.4 L MCV 82 L MCH 26 L MCHC RDW 17.2 H Plt Count Lymph % (Auto) [place] % (Auto) 10.8 H Lymph # 0.9 L Seg Neutrophils % Seg Neuts % (Manual) Lymphocytes % (Manual) Monocytes % (Manual) Seg Neutrophils # Man Lymphocytes # (Manual) Monocytes # (Manual) PT INR APTT 70.3 H* Fibrinogen Heparin Anti-Xa Level Sodium Potassium Chloride Carbon Dioxide BUN Creatinine Glucose POC Glucose Calcium AST ALT Total Protein Albumin Urine WBC (Auto) 19.0 H 12/01/16 10:30 WBC RBC Hgb Hct MCV MCH MCHC RDW Plt Count Lymph % (Auto) [place] % (Auto) Lymph # Seg Neutrophils % Seg Neuts % (Manual) Lymphocytes % (Manual) Monocytes % (Manual) Seg Neutrophils # Man Lymphocytes # (Manual) Monocytes # (Manual) PT INR APTT 52.8 H Fibrinogen Heparin Anti-Xa Level Sodium Potassium Chloride Carbon Dioxide BUN Creatinine Glucose POC Glucose Calcium AST ALT Total Protein Albumin Urine WBC (Auto)
--- NOTE | 2016-12-01 15:13 | Progress Note ---
Assessment and Plan 36-year-old male with massive pulmonary embolism status post thrombolytic catheter placement for approximately 30 hours in both pulmonary arteries with subsequent bilateral percutaneous pulmonary artery thrombectomy with indigo penumbra device, and IVC filter placement. Tolerating procedures well. H&H stable. Will ultimately need conversion to oral anticoagulation. Patient will need anticoagulation for at least 1 year, possibly life given the patient's decreased mobility related to significant morbid obesity unless his risk factors (lack of movement and morbid obesity) can be controlled. Recommend bilateral lower extremity venous ultrasound. This will allow for subsequent monitoring if a DVT is present. Plan on IVC filter removal in approximately 3-6 months. He can follow up in 2 weeks. Card provided. Subjective Date of service: 12/01/16 Principal diagnosis: saddle emboli with hypotension, status post thrombolysis Interval history: Cardia significantly improving, blood pressure stable, breathing without issue, no accessory muscle use, breathing at bedside without supplementary oxygen without discomfort. Nno groin pain, continues to have low-grade back pain which she has been present for a long time and predated thromboysis. Some focal abdominal pain at sites of adhesives. When adhesives removed, abdominal pain resolves. Objective - Constitutional Vitals: Vital Signs - 12hr 12/01/16 12/01/16 12/01/16 03:15 04:00 05:10 Temperature 97.6 F Pulse Rate 95 H Pulse Rate [ Left Radial] Pulse Rate [ 118 H Right Dorsalis Pedis] Respiratory 18 Rate Blood Pressure 100/78 [Left Arm] O2 Sat by Pulse 96 96 Oximetry 12/01/16 12/01/16 08:00 10:00 Temperature 98.5 F Pulse Rate 100 H Pulse Rate [ 100 H Left Radial] Pulse Rate [ 100 H Right Dorsalis Pedis] Respiratory 20 20 Rate Blood Pressure 106/62 [Left Arm] O2 Sat by Pulse 97 97 Oximetry General appearance: Present: no acute distress, other (lying in hospital bed, obese, SCDs bilaterally) - EENT Eyes: EOM intact ENT: hearing intact - Respiratory Respiratory effort: normal Extremities: normal temperature, normal color - Psychiatric Psychiatric: appropriate mood/affect, cooperative - Labs CBC & Chem 7: 12/01/16 07:16 11/30/16 04:18 Labs: Abnormal lab results 11/30/16 11/30/16 11/30/16 Range/Units 16:49 17:15 20:48 RBC (3.65-5.03) M/mm3 Hgb (11.8-15.2) gm/dl Hct (35.5-45.6) % MCV (84-94) fl MCH (28-32) pg RDW (13.2-15.2) % [place] % (Auto) (0.0-7.3) % Lymph # (1.2-5.4) K/mm3 PT 23.9 H (12.2-14.9) Sec. INR 2.13 H (0.87-1.13) APTT 55.4 H (24.2-36.6) Sec. POC Glucose 140 H 157 H (70-105) 11/30/16 12/01/16 12/01/16 Range/Units 23:00 04:00 07:16 RBC 3.45 L (3.65-5.03) M/mm3 Hgb 9.1 L (11.8-15.2) gm/dl Hct 28.4 L (35.5-45.6) % MCV 82 L (84-94) fl MCH 26 L (28-32) pg RDW 17.2 H (13.2-15.2) % [place] % (Auto) 10.8 H (0.0-7.3) % Lymph # 0.9 L (1.2-5.4) K/mm3 PT (12.2-14.9) Sec. INR (0.87-1.13) APTT 151.3 H* 70.3 H* (24.2-36.6) Sec. POC Glucose (70-105) 12/01/16 Range/Units 10:30 RBC (3.65-5.03) M/mm3 Hgb (11.8-15.2) gm/dl Hct (35.5-45.6) % MCV (84-94) fl MCH (28-32) pg RDW (13.2-15.2) % [place] % (Auto) (0.0-7.3) % Lymph # (1.2-5.4) K/mm3 PT (12.2-14.9) Sec. INR (0.87-1.13) APTT 52.8 H (24.2-36.6) Sec. POC Glucose (70-105)
[2016-12-01] MEDS: XANAX PO PRN (22:30)
[2016-12-02] MEDS: PERCOCET 5/325 PO PRN ×3 (03:00→22:48)
[2016-12-02] MEDS: ceFAZolin 2 GM in NACL 0.9% 100 ML IV SCH ×4 (06:30→22:33)
[2016-12-02] MEDS: XANAX PO PRN ×2 (06:30→11:42)
--- NOTE | 2016-12-02 10:40 | Progress Note ---
Assessment and Plan Assessment and plan: 1. Extensive bilateral pulmonary emboli with saddle emboli. Patient is status post bilateral EKOS catheter placement. Patient with successful EKOS catheter directed pulmonary artery thrombolytic therapy and percutaneous thrombectomy with residual thrombus in the right distal main extending into the right upper lobe. Patient also with successful IVC filter placement. IVC filter removal in 3-6 months per IR. Bilateral lower extremity Dopplers negative. Heparin discontinued and start argatroban given the thrombocytopenia. Patient will need to be switched to oral anticoagulation. Await hematology recommendations. 2. Psoas abscess. Patient with fevers today. Continue current antibiotics. ? drug fever. If fevers persist, Consider ID consultation. Check chest x-ray, blood cultures and urinalysis. 3. Hypotension secondary to pulmonary emboli. Resolved. 4. Diabetes type 2. Continue sliding-scale insulin and Accu-Cheks. 1800 ADA diet. 5. Obesity/OHS/LIVAN. CPAP at night. 6. Acute hypoxic respiratory failure. Etiology secondary to #1. Continue supportive care. 7. Thrombocytopenia. Patient with a greater than 50% drop in platelets since admission. Check HIT. Discontinue heparin and start argatroban. Discussed with pharmacy for dosing. History Interval history: 36-year-old man with a history of hypertension, diabetes, obesity, chronic pain was transfer from [facility] to [facility] on the sixth floor. Patient was diagnosed with sepsis secondary to pneumonia, psoas abscess, MSSA bacteremia. He was in respiratory failure, he was trached. While on LTAC, the patient was tachycardic, CAT scan was done which shows extensive bilateral pulmonary emboli in the saddle emboli. The patient was started on heparin drip. Patient had successful placement of bilateral EKOS catheters into the pulmonary arteries with angiographic confirmation. No new issues overnight. Hospitalist Physical - Constitutional Vitals: Temp Pulse Resp BP Pulse Ox 97.9 F 98 H 20 114/74 94 12/02/16 08:00 12/02/16 08:00 12/02/16 08:00 12/02/16 08:00 12/02/16 08:00 General appearance: Present: no acute distress, other (lying in hospital bed, obese, SCDs bilaterally) - EENT Eyes: Present: PERRL, EOM intact ENT: hearing intact, clear oral mucosa, dentition normal - Neck Neck: Present: supple, normal ROM - Respiratory Respiratory effort: normal Respiratory: bilateral: CTA - Cardiovascular Rhythm: regular Heart Sounds: Present: S1 & S2. Absent: gallop, rub - Extremities Extremities: no ischemia, No edema, Full ROM - Abdominal General gastrointestinal: soft, non-tender, non-distended, normal bowel sounds - Integumentary Integumentary: Present: clear, warm, dry - Neurologic Neurologic: CNII-XII intact, moves all extremities Results - Labs CBC & Chem 7: 12/01/16 07:16 11/30/16 04:18 Labs: Laboratory Last Values WBC 4.9 K/mm3 (4.5-11.0) 12/01/16 07:16 RBC 3.45 M/mm3 (3.65-5.03) L 12/01/16 07:16 Hgb 9.1 gm/dl (11.8-15.2) L 12/01/16 07:16 Hct 28.4 % (35.5-45.6) L 12/01/16 07:16 MCV 82 fl (84-94) L 12/01/16 07:16 MCH 26 pg (28-32) L 12/01/16 07:16 MCHC 32 % (32-34) 12/01/16 07:16 RDW 17.2 % (13.2-15.2) H 12/01/16 07:16 Plt Count 181 K/mm3 (140-440) 12/01/16 07:16 Lymph % (Auto) 17.6 % (13.4-35.0) 12/01/16 07:16 [place] % (Auto) 10.8 % (0.0-7.3) H 12/01/16 07:16 Eos % (Auto) 3.3 % (0.0-4.3) 12/01/16 07:16 Baso % (Auto) 0.7 % (0.0-1.8) 12/01/16 07:16 Lymph # 0.9 K/mm3 (1.2-5.4) L 12/01/16 07:16 [place] # 0.5 K/mm3 (0.0-0.8) 12/01/16 07:16 Eos # 0.2 K/mm3 (0.0-0.4) 12/01/16 07:16 Baso # 0.0 K/mm3 (0.0-0.1) 12/01/16 07:16 Add Manual Diff Complete 11/27/16 17:00 Total Counted 100 11/27/16 17:00 Seg Neutrophils % 67.6 % (40.0-70.0) 12/01/16 07:16 Seg Neuts % (Manual) 80.0 % (40.0-70.0) H 11/27/16 17:00 Band Neutrophils % 0 % 11/27/16 17:00 Lymphocytes % (Manual) 9.0 % (13.4-35.0) L 11/27/16 17:00 Reactive Lymphs % (Man) 0 % 11/27/16 17:00 Monocytes % (Manual) 9.0 % (0.0-7.3) H 11/27/16 17:00 Eosinophils % (Manual) 0 % (0.0-4.3) 11/27/16 17:00 Basophils % (Manual) 0 % (0.0-1.8) 11/27/16 17:00 Metamyelocytes % 2.0 % 11/27/16 17:00 Myelocytes % 0 % 11/27/16 17:00 Promyelocytes % 0 % 11/27/16 17:00 Blast Cells % 0 % 11/27/16 17:00 Nucleated RBC % Not Reportable 11/27/16 17:00 Seg Neutrophils # 3.3 K/mm3 (1.8-7.7) 12/01/16 07:16 Seg Neutrophils # Man 7.7 K/mm3 (1.8-7.7) 11/27/16 17:00 Band Neutrophils # 0.0 K/mm3 11/27/16 17:00 Lymphocytes # (Manual) 0.9 K/mm3 (1.2-5.4) L 11/27/16 17:00 Abs React Lymphs (Man) 0.0 K/mm3 11/27/16 17:00 Monocytes # (Manual) 0.9 K/mm3 (0.0-0.8) H 11/27/16 17:00 Eosinophils # (Manual) 0.0 K/mm3 (0.0-0.4) 11/27/16 17:00 Basophils # (Manual) 0.0 K/mm3 (0.0-0.1) 11/27/16 17:00 Metamyelocytes # 0.2 K/mm3 11/27/16 17:00 Myelocytes # 0.0 K/mm3 11/27/16 17:00 Promyelocytes # 0.0 K/mm3 11/27/16 17:00 Blast Cells # 0.0 K/mm3 11/27/16 17:00 WBC Morphology Not Reportable 11/27/16 17:00 Hypersegmented Neuts Not Reportable 11/27/16 17:00 Hyposegmented Neuts Not Reportable 11/27/16 17:00 Hypogranular Neuts Not Reportable 11/27/16 17:00 Smudge Cells Not Reportable 11/27/16 17:00 Toxic Granulation Not Reportable 11/27/16 17:00 Toxic Vacuolation Not Reportable 11/27/16 17:00 Dohle Bodies Not Reportable 11/27/16 17:00 Pelger-Huet Anomaly Not Reportable 11/27/16 17:00 Mati Rods Not Reportable 11/27/16 17:00 Platelet Estimate Consistent w auto 11/27/16 17:00 Clumped Platelets Not Reportable 11/27/16 17:00 Plt Clumps, EDTA Not Reportable 11/27/16 17:00 Large Platelets Not Reportable 11/27/16 17:00 Giant Platelets Not Reportable 11/27/16 17:00 Platelet Satelliting Not Reportable 11/27/16 17:00 Plt Morphology Comment Not Reportable 11/27/16 17:00 RBC Morphology Not Reportable 11/27/16 17:00 Dimorphic RBCs Not Reportable 11/27/16 17:00 Polychromasia Not Reportable 11/27/16 17:00 Hypochromasia Not Reportable 11/27/16 17:00 Poikilocytosis Not Reportable 11/27/16 17:00 Anisocytosis 1+ 11/27/16 17:00 Microcytosis Not Reportable 11/27/16 17:00 Macrocytosis Not Reportable 11/27/16 17:00 Spherocytes Not Reportable 11/27/16 17:00 Pappenheimer Bodies Not Reportable 11/27/16 17:00 Sickle Cells Not Reportable 11/27/16 17:00 Target Cells Not Reportable 11/27/16 17:00 Tear Drop Cells Not Reportable 11/27/16 17:00 Ovalocytes Not Reportable 11/27/16 17:00 Helmet Cells Not Reportable 11/27/16 17:00 Serr[place] Bodies Not Reportable 11/27/16 17:00 Anza Rings Not Reportable 11/27/16 17:00 William Cells Not Reportable 11/27/16 17:00 Bite Cells Not Reportable 11/27/16 17:00 Crenated Cell Not Reportable 11/27/16 17:00 Elliptocytes Not Reportable 11/27/16 17:00 Acanthocytes (Spur) Not Reportable 11/27/16 17:00 Rouleaux Not Reportable 11/27/16 17:00 Hemoglobin C Crystals Not Reportable 11/27/16 17:00 Schistocytes Not Reportable 11/27/16 17:00 Malaria parasites Not Reportable 11/27/16 17:00 Michael Bodies Not Reportable 11/27/16 17:00 Hem Pathologist Commnt No 11/27/16 17:00 PT 23.9 Sec. (12.2-14.9) H 11/30/16 17:15 INR 2.13 (0.87-1.13) H 11/30/16 17:15 APTT 52.1 Sec. (24.2-36.6) H 12/02/16 06:48 Fibrinogen 474 mg/dl (211-480) 11/27/16 23:00 Heparin Anti-Xa Level 0.14 U.I./ml (0.3-0.7) L 11/30/16 Unknown Sodium 137 mmol/L (137-145) 11/30/16 04:18 Potassium 3.6 mmol/L (3.6-5.0) 11/30/16 04:18 Chloride 100.3 mmol/L (98-107) 11/30/16 04:18 Carbon Dioxide 19 mmol/L (22-30) L 11/30/16 04:18 Anion Gap 21 mmol/L 11/30/16 04:18 BUN 8 mg/dL (9-20) L 11/30/16 04:18 Creatinine 0.3 mg/dL (0.8-1.5) L 11/30/16 04:18 Estimated GFR > 60 ml/min 11/30/16 04:18 BUN/Creatinine Ratio 26.66 % 11/30/16 04:18 Glucose 132 mg/dL (75-100) H 11/30/16 04:18 POC Glucose 164 (70-105) H 12/01/16 22:33 Calcium 7.9 mg/dL (8.4-10.2) L 11/30/16 04:18 Total Bilirubin 0.7 mg/dL (0.1-1.2) 11/30/16 04:18 Direct Bilirubin 0.2 mg/dL (0-0.2) 11/30/16 04:18 Indirect Bilirubin 0.5 mg/dL 11/30/16 04:18 AST 287 units/L (5-40) H 11/30/16 04:18 ALT 841 units/L (7-56) H 11/30/16 04:18 Alkaline Phosphatase 115 units/L (35-129) 11/30/16 04:18 Total Protein 6.0 g/dL (6.3-8.2) L 11/30/16 04:18 Albumin 2.7 g/dL (3.9-5) L 11/30/16 04:18 Albumin/Globulin Ratio 0.8 % 11/30/16 04:18 Urine Color Yellow (Yellow) 11/30/16 Unknown Urine Turbidity Slightly-cloudy (Clear) 11/30/16 Unknown Urine pH 5.0 (5.0-7.0) 11/30/16 Unknown Ur Specific [place] 1.020 (1.003-1.030) 11/30/16 Unknown Urine Protein 30 mg/dl mg/dL (Negative) 11/30/16 Unknown Urine Glucose (UA) Neg mg/dL (Negative) 11/30/16 Unknown Urine Ketones Neg mg/dL (Negative) 11/30/16 Unknown Urine Blood Sm (Negative) 11/30/16 Unknown Urine Nitrite Neg (Negative) 11/30/16 Unknown Urine Bilirubin Neg (Negative) 11/30/16 Unknown Urine Urobilinogen 2.0 mg/dL (<2.0) 11/30/16 Unknown Ur Leukocyte Esterase Sm (Negative) 11/30/16 Unknown Urine WBC (Auto) 19.0 /HPF (0.0-6.0) H 11/30/16 Unknown Urine RBC (Auto) 5.0 /HPF (0.0-6.0) 11/30/16 Unknown U Epithel Cells (Auto) < 1.0 /HPF (0-13.0) 11/30/16 Unknown Uric Acid Crystals 1+ 11/30/16 Unknown Urine Mucus 1+ /HPF 11/30/16 Unknown Blood Type O POSITIVE 11/27/16 02:58 Antibody Screen Negative 11/27/16 02:58
--- NOTE | 2016-12-02 11:10 | Progress Note ---
Assessment and Plan Bilateral pulmonary emboli with saddle emboli s/p EKOS, thrombectomy, IVC filter placement heparin gtt to be transitioned to OAC, per vascular Echo 11/2016: EF 45-50%, RA/RV moderately dilated, RVSP 65mmHg bilateral venous ultrasound negative for dvt Pulmonary HTN from pe Possible HIT awaiting panel and hematology consult pending , once cleared suggest elquis 10mg bid for one week and then 5mg bid Hypotension-> resolved Acute respiratory failure-> resolved Diabetes Psoas abscess Subjective Date of service: 12/02/16 Principal diagnosis: saddle emboli with hypotension, status post thrombolysis Interval history: pt is lying in bed no complaints Objective Vital Signs Temp Pulse Pulse Pulse Pulse Resp BP 12/02/16 08:00 97.9 F 94 H 98 H 20 114/74 12/02/16 02:00 97.5 F L 101 H 18 121/84 12/01/16 20:00 97.9 F 107 H 19 154/89 12/01/16 16:30 98.8 F 104 H 20 109/71 Pulse Ox 12/02/16 08:00 94 12/02/16 02:00 12/01/16 20:00 100 12/01/16 16:30 98 - Physical Examination General: No Apparent Distress HEENT: Positive: Normocephaly, Mucus Membranes Moist Neck: Positive: neck supple, trachea midline Cardiac: Positive: Reg Rate and Rhythm, Audible Murmur Lungs: Positive: clear to auscultation Neuro: Positive: Grossly Intact Abdomen: Positive: Soft, Active Bowel Sounds. Negative: Tender Skin: Positive: Clear. Negative: Rash Extremities: Present: normal. Absent: edema - Labs and Meds Coagulation 12/01/16 12/02/16 Range/Units 10:30 06:48 APTT 52.8 H 52.1 H (24.2-36.6) Sec. - Imaging and Cardiology EKG: image reviewed (st, 115, read by me) Echo: report reviewed (11/2016: EF 45-50%, RA/RV moderately dilated, RVSP 65mmHg ) - EKG Sinus rhythms and dysrhythmias: sinus tachycardia Repolarization changes or abnormalities: nonspecific abnormality, ST segment, and/or T wave
[2016-12-02] MEDS: DOLOPHINE PO SCH (11:25)
[2016-12-02] MEDS: NYSTOP TP SCH ×2 (11:27→22:29)
[2016-12-02] MEDS: PEPCID PO SCH ×2 (11:27→22:29)
--- NOTE | 2016-12-02 11:31 | Progress Note ---
Assessment and Plan 36-year-old male with massive pulmonary embolism status post thrombolytic catheter placement for approximately 30 hours in both pulmonary arteries with subsequent bilateral percutaneous pulmonary artery thrombectomy with indigo penumbra device, and IVC filter placement. Tolerating procedures well. H&H stable. Will ultimately need conversion to oral anticoagulation. Patient will need anticoagulation for at least 1 year, possibly life given the patient's decreased mobility related to significant morbid obesity unless his risk factors (lack of movement and morbid obesity) can be controlled. No DVT. Plan on IVC filter removal in approximately 3-6 months. Recommend changing 4x4 at right groin to clean site clean. Recommend removal of left femoral TLC per hospital protocol. Already has access from right arm PICC. Discussed with Dr. Rahman. He can follow up in 2 weeks. Card provided. Subjective Date of service: 12/02/16 Principal diagnosis: saddle emboli with hypotension, status post thrombolysis Interval history: Tachycardia improving, blood pressure stable, breathing without issue, no accessory muscle use, breathing at bedside without supplementary oxygen without discomfort. No groin pain, continues to have low-grade back pain which has been present for a long time and predated thromboysis. Some focal abdominal pain at sites of adhesives. When adhesives removed, abdominal pain resolves. Right groin dressing removed. Recommend 4x4s. Inspect left femoral TLC. No clear use for line. Discussed with nurse. Objective - Constitutional Vitals: Vital Signs - 12hr 12/02/16 12/02/16 12/02/16 02:00 08:00 11:25 Temperature 97.5 F L 97.9 F Pulse Rate 94 H Pulse Rate [ 101 H Left Radial] Pulse Rate [ 98 H Right Dorsalis Pedis] Respiratory 18 20 20 Rate Blood Pressure 121/84 114/74 [Left Arm] O2 Sat by Pulse 94 Oximetry General appearance: Present: no acute distress - EENT Eyes: EOM intact ENT: hearing intact - Respiratory Respiratory effort: normal Extremities: normal temperature, normal color - Psychiatric Psychiatric: appropriate mood/affect, cooperative - Labs CBC & Chem 7: 12/01/16 07:16 11/30/16 04:18 Labs: Abnormal lab results 12/01/16 12/01/16 12/02/16 Range/Units 18:26 22:33 06:48 APTT 52.1 H (24.2-36.6) Sec. POC Glucose 176 H 164 H (70-105)
--- NOTE | 2016-12-02 11:41 | Progress Note ---
Assessment and Plan - Patient Problems (1) Pulmonary embolism Current Visit: Yes Status: Acute Qualifiers: Pulmonary embolism type: saddle Chronicity: acute Acute cor pulmonale presence: with acute cor pulmonale Qualified Code(s): I26.02 - Saddle embolus of pulmonary artery with acute cor pulmonale (2) Acute respiratory failure with hypoxia Current Visit: Yes Status: Acute (3) Morbid (severe) obesity due to excess calories Current Visit: Yes Status: Acute (4) LIVAN on CPAP Current Visit: Yes Status: Acute Subjective Principal diagnosis: saddle emboli with hypotension, status post thrombolysis Interval history: back pain (chronic) Objective Vital Signs - 12hr 12/02/16 12/02/16 12/02/16 02:00 08:00 11:25 Temperature 97.5 F L 97.9 F Pulse Rate 94 H Pulse Rate [ 101 H Left Radial] Pulse Rate [ 98 H Right Dorsalis Pedis] Respiratory 18 20 20 Rate Blood Pressure 121/84 114/74 [Left Arm] O2 Sat by Pulse 94 Oximetry Constitutional: no acute distress, alert, other (morbidly obese, alert) Eyes: non-icteric ENT: other (crowded oropharynx) Neck: supple, no JVD Effort: normal Ascultation: Bilateral: diminished breath sounds Cardiovascular: regular rate and rhythm Gastrointestinal: normoactive bowel sounds, non-distended Integumentary: normal Extremities: no cyanosis, no edema, pulses normal Neurologic: normal mental status, non-focal exam, pupils equal and round, CN II- XII normal, motor strength normal and CBC and BMP: 12/01/16 07:16 11/30/16 04:18 ABG, PT/INR, D-dimer: PT/INR, D-dimer PT 23.9 Sec. (12.2-14.9) H 11/30/16 17:15 INR 2.13 (0.87-1.13) H 11/30/16 17:15 Abnormal lab findings: Abnormal Labs 11/27/16 11/27/16 11/27/16 02:04 02:24 02:58 WBC 11.1 H RBC Hgb 11.6 L Hct MCV 83 L MCH 26 L MCHC 31 L RDW 17.0 H Plt Count Lymph % (Auto) Benson % (Auto) Lymph # Seg Neutrophils % Seg Neuts % (Manual) Lymphocytes % (Manual) Monocytes % (Manual) 15.0 H Seg Neutrophils # Man Lymphocytes # (Manual) Monocytes # (Manual) 1.7 H PT INR APTT Fibrinogen Heparin Anti-Xa Level Sodium 133 L Potassium Chloride 96.4 L Carbon Dioxide 16 L D BUN 23 H Creatinine 0.5 L D Glucose 214 H POC Glucose 211 H Calcium AST ALT Total Protein Albumin Urine WBC (Auto) 11/27/16 11/27/16 11/27/16 02:58 06:20 06:20 WBC 13.2 H RBC Hgb 11.1 L Hct MCV 82 L MCH 26 L MCHC 31 L RDW 16.9 H Plt Count 472 H Lymph % (Auto) Benson % (Auto) Lymph # Seg Neutrophils % Seg Neuts % (Manual) 82.0 H Lymphocytes % (Manual) 6.0 L Monocytes % (Manual) 9.0 H Seg Neutrophils # Man 10.8 H Lymphocytes # (Manual) 0.8 L Monocytes # (Manual) 1.2 H PT 15.9 H 18.5 H INR 1.28 H 1.54 H APTT 46.2 H Fibrinogen 603 H Heparin Anti-Xa Level Sodium Potassium Chloride Carbon Dioxide BUN Creatinine Glucose POC Glucose Calcium AST ALT Total Protein Albumin Urine WBC (Auto) 11/27/16 11/27/16 11/27/16 06:20 06:20 09:45 WBC 11.6 H RBC Hgb 11.2 L Hct 34.5 L MCV 81 L MCH 26 L MCHC RDW 17.0 H Plt Count Lymph % (Auto) Benson % (Auto) Lymph # Seg Neutrophils % Seg Neuts % (Manual) 85.0 H Lymphocytes % (Manual) 3.0 L Monocytes % (Manual) Seg Neutrophils # Man 9.9 H Lymphocytes # (Manual) 0.3 L Monocytes # (Manual) PT INR APTT Fibrinogen Heparin Anti-Xa Level 0.99 H Sodium 136 L Potassium Chloride 96.6 L Carbon Dioxide 17 L BUN 23 H Creatinine 0.6 L Glucose 223 H POC Glucose Calcium AST ALT Total Protein Albumin Urine WBC (Auto) 11/27/16 11/27/16 11/27/16 15:01 17:00 17:00 WBC RBC Hgb 10.9 L Hct 33.2 L MCV 81 L MCH 27 L MCHC RDW 16.9 H Plt Count Lymph % (Auto) Benson % (Auto) Lymph # Seg Neutrophils % Seg Neuts % (Manual) 80.0 H Lymphocytes % (Manual) 9.0 L Monocytes % (Manual) 9.0 H Seg Neutrophils # Man Lymphocytes # (Manual) 0.9 L Monocytes # (Manual) 0.9 H PT INR APTT Fibrinogen 533 H Heparin Anti-Xa Level 0.81 H Sodium Potassium Chloride Carbon Dioxide BUN Creatinine Glucose POC Glucose 254 H Calcium AST ALT Total Protein Albumin Urine WBC (Auto) 11/27/16 11/27/16 11/27/16 17:41 22:30 23:00 WBC RBC Hgb 10.0 L Hct 30.4 L MCV 82 L MCH 27 L MCHC RDW 17.0 H Plt Count Lymph % (Auto) Benson % (Auto) 8.2 H Lymph # Seg Neutrophils % 75.1 H Seg Neuts % (Manual) Lymphocytes % (Manual) Monocytes % (Manual) Seg Neutrophils # Man Lymphocytes # (Manual) Monocytes # (Manual) PT INR APTT Fibrinogen Heparin Anti-Xa Level Sodium Potassium Chloride Carbon Dioxide BUN Creatinine Glucose POC Glucose 242 H 199 H Calcium AST ALT Total Protein Albumin Urine WBC (Auto) 11/28/16 11/28/16 11/28/16 05:00 05:00 05:00 WBC RBC Hgb 9.8 L Hct 30.0 L MCV 82 L MCH 27 L MCHC RDW 17.1 H Plt Count Lymph % (Auto) Benson % (Auto) 7.7 H Lymph # 1.1 L Seg Neutrophils % 75.1 H Seg Neuts % (Manual) Lymphocytes % (Manual) Monocytes % (Manual) Seg Neutrophils # Man Lymphocytes # (Manual) Monocytes # (Manual) PT 19.7 H INR 1.67 H APTT 125.9 H* Fibrinogen Heparin Anti-Xa Level Sodium Potassium Chloride 107.3 H Carbon Dioxide 17 L BUN Creatinine 0.4 L Glucose 164 H POC Glucose Calcium 8.3 L AST ALT Total Protein Albumin Urine WBC (Auto) 11/28/16 11/28/16 11/28/16 07:40 14:00 14:00 WBC RBC Hgb Hct MCV MCH MCHC RDW Plt Count Lymph % (Auto) Benson % (Auto) Lymph # Seg Neutrophils % Seg Neuts % (Manual) Lymphocytes % (Manual) Monocytes % (Manual) Seg Neutrophils # Man Lymphocytes # (Manual) Monocytes # (Manual) PT INR APTT 65.5 H* Fibrinogen Heparin Anti-Xa Level 0.23 L Sodium Potassium Chloride Carbon Dioxide BUN Creatinine Glucose POC Glucose 174 H Calcium AST ALT Total Protein Albumin Urine WBC (Auto) 11/28/16 11/28/16 11/28/16 16:12 21:40 21:48 WBC RBC 3.31 L Hgb 8.8 L Hct 27.0 L MCV 82 L MCH 27 L MCHC RDW 16.8 H Plt Count Lymph % (Auto) 12.9 L Benson % (Auto) 7.7 H Lymph # 0.8 L Seg Neutrophils % 78.5 H Seg Neuts % (Manual) Lymphocytes % (Manual) Monocytes % (Manual) Seg Neutrophils # Man Lymphocytes # (Manual) Monocytes # (Manual) PT INR APTT Fibrinogen Heparin Anti-Xa Level Sodium Potassium Chloride Carbon Dioxide BUN Creatinine Glucose POC Glucose 144 H 153 H Calcium AST ALT Total Protein Albumin Urine WBC (Auto) 11/28/16 11/28/16 11/29/16 22:07 23:36 06:00 WBC RBC 3.18 L Hgb 8.6 L Hct 26.3 L MCV 83 L MCH 27 L MCHC RDW 16.6 H Plt Count Lymph % (Auto) Benson % (Auto) 8.5 H Lymph # 0.9 L Seg Neutrophils % 73.5 H Seg Neuts % (Manual) Lymphocytes % (Manual) Monocytes % (Manual) Seg Neutrophils # Man Lymphocytes # (Manual) Monocytes # (Manual) PT INR APTT Fibrinogen Heparin Anti-Xa Level < 0.10 L Sodium Potassium Chloride Carbon Dioxide BUN Creatinine Glucose POC Glucose 158 H Calcium AST ALT Total Protein Albumin Urine WBC (Auto) 11/29/16 11/29/16 11/29/16 06:00 08:17 08:24 WBC RBC Hgb Hct MCV MCH MCHC RDW Plt Count Lymph % (Auto) Benson % (Auto) Lymph # Seg Neutrophils % Seg Neuts % (Manual) Lymphocytes % (Manual) Monocytes % (Manual) Seg Neutrophils # Man Lymphocytes # (Manual) Monocytes # (Manual) PT INR APTT Fibrinogen Heparin Anti-Xa Level < 0.10 L Sodium Potassium 3.0 L Chloride 107.3 H Carbon Dioxide 19 L BUN Creatinine 0.3 L Glucose 116 H POC Glucose 115 H Calcium 8.2 L AST ALT Total Protein Albumin Urine WBC (Auto) 11/29/16 11/29/16 11/29/16 11:26 15:22 21:33 WBC RBC Hgb Hct MCV MCH MCHC RDW Plt Count Lymph % (Auto) Benson % (Auto) Lymph # Seg Neutrophils % Seg Neuts % (Manual) Lymphocytes % (Manual) Monocytes % (Manual) Seg Neutrophils # Man Lymphocytes # (Manual) Monocytes # (Manual) PT INR APTT Fibrinogen Heparin Anti-Xa Level Sodium Potassium Chloride Carbon Dioxide BUN Creatinine Glucose POC Glucose 172 H 167 H 152 H Calcium AST ALT Total Protein Albumin Urine WBC (Auto) 11/30/16 11/30/16 11/30/16 01:30 04:18 04:18 WBC RBC 3.28 L Hgb 8.8 L Hct 27.3 L MCV 83 L MCH 27 L MCHC RDW 16.9 H Plt Count Lymph % (Auto) Benson % (Auto) 10.2 H Lymph # 0.9 L Seg Neutrophils % 73.3 H Seg Neuts % (Manual) Lymphocytes % (Manual) Monocytes % (Manual) Seg Neutrophils # Man Lymphocytes # (Manual) Monocytes # (Manual) PT INR APTT Fibrinogen Heparin Anti-Xa Level < 0.10 L Sodium Potassium Chloride Carbon Dioxide 19 L BUN 8 L Creatinine 0.3 L Glucose 132 H POC Glucose Calcium 7.9 L AST ALT Total Protein Albumin Urine WBC (Auto) 11/30/16 11/30/16 11/30/16 04:18 07:32 09:27 WBC RBC Hgb Hct MCV MCH MCHC RDW Plt Count Lymph % (Auto) Benson % (Auto) Lymph # Seg Neutrophils % Seg Neuts % (Manual) Lymphocytes % (Manual) Monocytes % (Manual) Seg Neutrophils # Man Lymphocytes # (Manual) Monocytes # (Manual) PT INR APTT 50.1 H Fibrinogen Heparin Anti-Xa Level Sodium Potassium Chloride Carbon Dioxide BUN Creatinine Glucose POC Glucose 125 H Calcium AST 287 H ALT 841 H Total Protein 6.0 L Albumin 2.7 L Urine WBC (Auto) 11/30/16 11/30/16 11/30/16 11:27 16:49 17:15 WBC RBC Hgb Hct MCV MCH MCHC RDW Plt Count Lymph % (Auto) Benson % (Auto) Lymph # Seg Neutrophils % Seg Neuts % (Manual) Lymphocytes % (Manual) Monocytes % (Manual) Seg Neutrophils # Man Lymphocytes # (Manual) Monocytes # (Manual) PT 23.9 H INR 2.13 H APTT 55.4 H Fibrinogen Heparin Anti-Xa Level Sodium Potassium Chloride Carbon Dioxide BUN Creatinine Glucose POC Glucose 161 H 140 H Calcium AST ALT Total Protein Albumin Urine WBC (Auto) 11/30/16 11/30/16 11/30/16 20:48 23:00 Unknown WBC RBC Hgb Hct MCV MCH MCHC RDW Plt Count Lymph % (Auto) Benson % (Auto) Lymph # Seg Neutrophils % Seg Neuts % (Manual) Lymphocytes % (Manual) Monocytes % (Manual) Seg Neutrophils # Man Lymphocytes # (Manual) Monocytes # (Manual) PT INR APTT 151.3 H* Fibrinogen Heparin Anti-Xa Level 0.14 L Sodium Potassium Chloride Carbon Dioxide BUN Creatinine Glucose POC Glucose 157 H Calcium AST ALT Total Protein Albumin Urine WBC (Auto) 11/30/16 12/01/16 12/01/16 Unknown 04:00 07:16 WBC RBC 3.45 L Hgb 9.1 L Hct 28.4 L MCV 82 L MCH 26 L MCHC RDW 17.2 H Plt Count Lymph % (Auto) Benson % (Auto) 10.8 H Lymph # 0.9 L Seg Neutrophils % Seg Neuts % (Manual) Lymphocytes % (Manual) Monocytes % (Manual) Seg Neutrophils # Man Lymphocytes # (Manual) Monocytes # (Manual) PT INR APTT 70.3 H* Fibrinogen Heparin Anti-Xa Level Sodium Potassium Chloride Carbon Dioxide BUN Creatinine Glucose POC Glucose Calcium AST ALT Total Protein Albumin Urine WBC (Auto) 19.0 H 12/01/16 12/01/16 12/01/16 10:30 18:26 22:33 WBC RBC Hgb Hct MCV MCH MCHC RDW Plt Count Lymph % (Auto) Benson % (Auto) Lymph # Seg Neutrophils % Seg Neuts % (Manual) Lymphocytes % (Manual) Monocytes % (Manual) Seg Neutrophils # Man Lymphocytes # (Manual) Monocytes # (Manual) PT INR APTT 52.8 H Fibrinogen Heparin Anti-Xa Level Sodium Potassium Chloride Carbon Dioxide BUN Creatinine Glucose POC Glucose 176 H 164 H Calcium AST ALT Total Protein Albumin Urine WBC (Auto) 12/02/16 06:48 WBC RBC Hgb Hct MCV MCH MCHC RDW Plt Count Lymph % (Auto) Benson % (Auto) Lymph # Seg Neutrophils % Seg Neuts % (Manual) Lymphocytes % (Manual) Monocytes % (Manual) Seg Neutrophils # Man Lymphocytes # (Manual) Monocytes # (Manual) PT INR APTT 52.1 H Fibrinogen Heparin Anti-Xa Level Sodium Potassium Chloride Carbon Dioxide BUN Creatinine Glucose POC Glucose Calcium AST ALT Total Protein Albumin Urine WBC (Auto)
[2016-12-02] MEDS: NOVOLOG SUB-Q SCH ×4 (12:00→22:32)
[2016-12-02] MEDS: ATIVAN IV PRN (22:50)
[2016-12-03] MEDS: ARGATROBAN 250 MG in NACL 0.9% 250ML 247.5 ML IV SCH ×3 (01:13→20:52)
[2016-12-03] MEDS: ceFAZolin 2 GM in NACL 0.9% 100 ML IV SCH ×4 (05:09→22:24)
[2016-12-03 05:56] LABS: Hemoglobin 10.1 gm/dl (11.8-15.2)
[2016-12-03 06:09] LABS: Alanine Aminotransferase 142 units/L (7-56); Albumin 2.6 g/dL (3.9-5); Albumin/Globulin Ratio 0.8 %; Alkaline Phosphatase 94 units/L (35-129); Bilirubin,Total 0.3 mg/dL (0.1-1.2); Blood Urea Nitrogen 4 mg/dL (9-20); Calcium 8.8 mg/dL (8.4-10.2); Carbon Dioxide 25 mmol/L (22-30); Chloride 106.9 mmol/L (98-107); Glucose 107 mg/dL (75-100); Sodium 145 mmol/L (137-145); Total Protein 5.7 g/dL (6.3-8.2)
[2016-12-03 06:31] LABS: Anion Gap 16 mmol/L
[2016-12-03 06:34] LABS: Potassium 2.8 mmol/L (3.6-5.0)
[2016-12-03] MEDS ORDERED: K-DUR PO ONE ×2 (06:52→13:18)
[2016-12-03] MEDS: NOVOLOG SUB-Q SCH ×4 (08:35→22:23)
[2016-12-03] MEDS: DOLOPHINE PO SCH (09:08)
[2016-12-03] MEDS: PEPCID PO SCH ×2 (09:08→22:22)
--- NOTE | 2016-12-03 09:12 | Hem/Onc Consultation ---
History of Present Illness - Reason for Consult Consult date: 12/03/16 drop in plateletcount - History of Present Illness 36-year-old man with a history of hypertension, diabetes, obesity, chronic pain was transfer from [facility] to LTAC on the sixth floor. Patient was diagnosed with sepsis secondary to pneumonia, psoas abscess, MSSA bacteremia. He was in respiratory failure, he was trached. While on LTAC, the patient was tachycardic, CAT scan was done which shows extensive bilateral pulmonary emboli in the saddle emboli. The patient was started on heparin drip. He was then transferred to the ICU for further care. Patient has been hypotensive, blood pressure right now is systolic 83, heart rate 115 Patient had a drop in his platelet count while on heparin and HIT was suspected. he was switched to argatroban and HIT assay ordered. platelets have come back up. Past History Past Medical History: diabetes, hypertension, other (pneumonia, sepsis, sleep apnea, morbid obesity, psoas abscess) Past Surgical History: Other (s/p trach) Social history: , other (chews tobacco). denies: alcohol abuse Family history: diabetes Medications and Allergies Allergies Allergy/AdvReac Type Severity Reaction Status Date / Time gentamicin Allergy Unknown Verified 11/27/16 02:31 neomycin Allergy Unknown Verified 11/27/16 02:31 Home Medications Medication Instructions Recorded Confirmed Last Taken Type ALBUTEROL NEB's [Proventil 0.083% 3 ml INHALATION Q6HR 11/29/16 11/29/16 Unknown History NEBS] ALPRAZolam [Xanax TAB] 0.25 mg FEEDTUBE Q6H PRN 11/29/16 11/29/16 11/25/16 History Acetaminophen ORAL LIQ 650 mg FEEDTUBE Q6H PRN 11/29/16 11/29/16 Unknown History Arformoterol Nebu [Brovana Nebu] 2 ml INHALATION BID 11/29/16 11/29/16 Unknown History Budesonide 2 ml INHALATION BID 11/29/16 11/29/16 Unknown History Docusate Sodium [Colace] 100 mg FEEDTUBE DAILY PRN 11/29/16 11/29/16 Unknown History FLUoxetine [PROzac] 20 mg FEEDTUBE QDAY 11/29/16 11/29/16 Unknown History HumaLOG VIAL See Protocol SUB-Q Q6H 11/29/16 11/29/16 Unknown History L. Acidophilus/L.bulgaricus [Bd 1 each FEEDTUBE DAILY 11/29/16 11/29/16 Unknown History Lactinex] Lipase/Protease/Amylase 1 cap FEEDTUBE PRN PRN 11/29/16 11/29/16 Unknown History Magnesium Hydroxide 30 ml FEEDTUBE PRN PRN 11/29/16 11/29/16 Unknown History Megestrol [Megace] 800 mg FEEDTUBE DAILY 11/29/16 11/29/16 11/25/16 History Methadone [Dolophine] 20 mg FEEDTUBE DAILY 11/29/16 11/29/16 11/25/16 History Nystop Powder 1 gm TP TID 11/29/16 11/29/16 11/25/16 History Pantoprazole [Protonix TAB] 40 mg FEEDTUBE DAILY 11/29/16 11/29/16 11/25/16 History Sucralfate [Carafate] 1 gm FEEDTUBE Q6HR 11/29/16 11/29/16 11/25/16 History Tamsulosin [Flomax] 0.4 mg PO QHS 11/29/16 11/29/16 11/25/16 History ceFAZolin SODIUM IN 0.9 % NACL 2 gm IV Q8H 11/29/16 11/29/16 11/25/16 History [Cefazolin 2 G/50 ml-0.9% NaCl] hydrALAZINE [Apresoline] 25 mg FEEDTUBE TID 11/29/16 11/29/16 Unknown History oxyCODONE /ACETAMINOPHEN 1 tab FEEDTUBE Q4H PRN 11/29/16 11/29/16 Unknown History Active Meds: Active Medications Acetaminophen (Tylenol) 650 mg PO Q6H PRN PRN Reason: Pain MILD(1-3)/Fever >100.5/MONSIVAIS Acetaminophen/Hydrocodone Bitart (Fonda 5/325) 2 each PO Q6H PRN PRN Reason: Pain, Moderate (4-6) Last Admin: 12/01/16 20:15 Dose: 2 each Al Hydrox/Mg Hydrox/Simethicone (Alum-Mag Hydrox-Simeth [phone]/5ml) 30 ml PO Q4H PRN PRN Reason: Indigestion Alprazolam (Xanax) 0.25 mg PO Q6H PRN PRN Reason: Anxiety Last Admin: 12/02/16 11:42 Dose: 0.25 mg Dextrose (D50w (25gm)) 50 ml IV PRN PRN PRN Reason: Hypoglycemia Famotidine (Pepcid) 20 mg PO BID [facility] Last Admin: 12/02/16 22:29 Dose: 20 mg Cefazolin Sodium 2 gm/ Sodium (Chloride) 100 mls @ 100 mls/hr IV Q8HR [facility] Stop: 12/07/16 13:59 Last Admin: 12/03/16 05:09 Dose: 100 mls/hr Argatroban 250 mg/ Sodium (Chloride) 250 mls @ 3.96 mls/hr IV TITR BISHOP; 0.5 MCG /KG/MIN PRN Reason: Protocol Last Titration: 12/03/16 07:54 Dose: 1.24 mcg/kg/min Insulin Aspart (Novolog) 0 units SUB-Q ACHS [facility] PRN Reason: Protocol Last Admin: 12/02/16 22:32 Dose: Not Given Lorazepam (Ativan) 1 mg IV Q4H PRN PRN Reason: sedation Last Admin: 12/02/16 22:50 Dose: 1 mg Magnesium Hydroxide (Milk Of Magnesia) 30 ml PO Q4H PRN PRN Reason: Constipation Methadone HCl (Dolophine) 20 mg PO DAILY [facility] Last Admin: 12/02/16 11:25 Dose: 20 mg Morphine Sulfate (Morphine) 2 mg IV Q4H PRN PRN Reason: Pain, Moderate (4-6) Last Admin: 11/27/16 05:27 Dose: 2 mg Morphine Sulfate (Morphine) 4 mg IV Q4H PRN PRN Reason: Pain , Severe (7-10) Last Admin: 11/28/16 20:48 Dose: 4 mg Nystatin (Nystop) 1 applic TP BID [facility] Last Admin: 12/02/16 22:29 Dose: 1 applic Ondansetron HCl (Zofran) 4 mg IV Q4H PRN PRN Reason: N/V unrelieved by Reglan Last Admin: 11/27/16 09:21 Dose: 4 mg Oxycodone HCl (Roxicodone) 5 mg PO Q4H PRN PRN Reason: Pain, Moderate (4-6) Oxycodone/Acetaminophen (Percocet 5/325) 1 tab PO Q4H PRN PRN Reason: Pain, Moderate (4-6) Last Admin: 12/02/16 22:48 Dose: 1 tab Review of Systems Constitutional: weakness Cardiovascular: shortness of breath Exam - Constitutional Vitals: Last Vital Signs Temp 98.7 F 12/03/16 08:00 Pulse 98 H 12/03/16 08:00 Resp 18 12/03/16 08:00 BP 137/96 12/03/16 08:00 Pulse Ox 96 12/03/16 08:00 General appearance: no acute distress - EENT Eyes: PERRL, EOM intact ENT: hearing intact Lymph node exam: negative cervical, negative supraclavicular - Respiratory Respiratory: bilateral: CTA - Cardiovascular Rhythm: regular Heart Sounds: Present: S1 & S2 Extremities: no ischemia - Gastrointestinal General gastrointestinal: Present: soft, non-tender, other (obese) - Integumentary Integumentary: clear, warm, dry Results - Labs lab Results: Laboratory Results - last 24 hr 12/02/16 12/02/16 12/02/16 08:21 13:24 14:58 Hgb Hct Plt Count APTT 69.4 H* Sodium Potassium Chloride Carbon Dioxide Anion Gap BUN Creatinine Estimated GFR BUN/Creatinine Ratio Glucose POC Glucose 126 H 123 H Calcium Total Bilirubin AST ALT Alkaline Phosphatase Total Protein Albumin Albumin/Globulin Ratio 12/02/16 12/02/16 12/02/16 17:09 21:30 22:00 Hgb Hct Plt Count APTT 54.6 H Sodium Potassium Chloride Carbon Dioxide Anion Gap BUN Creatinine Estimated GFR BUN/Creatinine Ratio Glucose POC Glucose 149 H 145 H Calcium Total Bilirubin AST ALT Alkaline Phosphatase Total Protein Albumin Albumin/Globulin Ratio 12/03/16 12/03/16 12/03/16 05:00 05:00 05:00 Hgb 10.1 L Hct 31.0 L Plt Count 300 APTT 117.3 H* Sodium 145 D Potassium 2.8 L* D Chloride 106.9 Carbon Dioxide 25 Anion Gap 16 BUN 4 L Creatinine 0.2 L Estimated GFR > 60 BUN/Creatinine Ratio 20.00 Glucose 107 H POC Glucose Calcium 8.8 Total Bilirubin 0.3 AST 18 ALT 142 H Alkaline Phosphatase 94 Total Protein 5.7 L Albumin 2.6 L Albumin/Globulin Ratio 0.8 Assessment and Plan 1- 50% drop in platelet count while on heparin for PE- agree with HIT testing and argatroban. his platelet count has recovered. will need to decide on optimal mcc anticoagulation. would await HIT results. 2- PE, with chronic illness and obesity. Dr. Hobbs will follow up tomorrow
[2016-12-03] MEDS: NYSTOP TP SCH ×2 (09:13→22:50)
[2016-12-03] MEDS: ATIVAN IV PRN (11:08)
--- NOTE | 2016-12-03 11:31 | Progress Note ---
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 and hematology consult pending , once cleared suggest elquis 10mg bid for one week and then 5mg bid Hypotension-> resolved Acute respiratory failure-> resolved Diabetes Psoas abscess Subjective Date of service: 12/03/16 Principal diagnosis: saddle emboli with hypotension, status post thrombolysis Interval history: Patient denies any chest pain or shortness breath laying in bed Objective Vital Signs Temp Pulse Pulse Pulse Resp BP Pulse Ox 12/03/16 08:00 98.7 F 98 H 18 137/96 96 12/03/16 07:48 94 12/03/16 05:52 98.2 F 84 111 H 18 110/64 12/03/16 01:13 97.6 F 101 H 18 124/75 99 12/02/16 22:00 100 H 97 12/02/16 20:26 98.1 F 104 H 20 129/83 95 12/02/16 17:10 20 12/02/16 16:40 97.9 F 102 H 20 129/89 95 12/02/16 16:10 20 12/02/16 12:25 20 - Physical Examination General: No Apparent Distress HEENT: Positive: Normocephaly, Mucus Membranes Moist Neck: Positive: neck supple, trachea midline Cardiac: Positive: Reg Rate and Rhythm, Audible Murmur Lungs: Positive: clear to auscultation Neuro: Positive: Grossly Intact Abdomen: Positive: Soft, Active Bowel Sounds. Negative: Tender Skin: Positive: Clear. Negative: Rash Extremities: Present: normal. Absent: edema - Labs and Meds Cardiac Enzymes 12/03/16 Range/Units 05:00 AST 18 (5-40) units/L Coagulation 12/02/16 12/02/16 12/03/16 Range/Units 14:58 22:00 05:00 APTT 69.4 H* 54.6 H 117.3 H* (24.2-36.6) Sec. CBC 12/03/16 Range/Units 05:00 Hgb 10.1 L (11.8-15.2) gm/dl Hct 31.0 L (35.5-45.6) % Plt Count 300 (140-440) K/mm3 Comprehensive Metabolic Panel 12/03/16 Range/Units 05:00 Sodium 145 D (137-145) mmol/L Potassium 2.8 L* D (3.6-5.0) mmol/L Chloride 106.9 (98-107) mmol/L Carbon Dioxide 25 (22-30) mmol/L BUN 4 L (9-20) mg/dL Creatinine 0.2 L (0.8-1.5) mg/dL Glucose 107 H (75-100) mg/dL Calcium 8.8 (8.4-10.2) mg/dL AST 18 (5-40) units/L ALT 142 H (7-56) units/L Alkaline Phosphatase 94 (35-129) units/L Total Protein 5.7 L (6.3-8.2) g/dL Albumin 2.6 L (3.9-5) g/dL - Imaging and Cardiology EKG: image reviewed (st, 115, read by me) Echo: report reviewed (11/2016: EF 45-50%, RA/RV moderately dilated, RVSP 65mmHg ) - Telemetry EKG Rhythm: Sinus Tachycardia (at 100 no V. tach or A. fib noted) - EKG Sinus rhythms and dysrhythmias: sinus tachycardia Repolarization changes or abnormalities: nonspecific abnormality, ST segment, and/or T wave
--- NOTE | 2016-12-03 12:34 | Progress Note ---
Assessment and Plan - Patient Problems (1) Pulmonary embolism Current Visit: Yes Status: Acute Qualifiers: Pulmonary embolism type: saddle Chronicity: acute Acute cor pulmonale presence: with acute cor pulmonale Qualified Code(s): I26.02 - Saddle embolus of pulmonary artery with acute cor pulmonale (2) Acute respiratory failure with hypoxia Current Visit: Yes Status: Acute (3) Morbid (severe) obesity due to excess calories Current Visit: Yes Status: Acute (4) LIVAN on CPAP Current Visit: Yes Status: Acute Subjective Principal diagnosis: saddle emboli with hypotension, status post thrombolysis Interval history: no new complaints Objective Vital Signs - 12hr 12/03/16 12/03/16 12/03/16 01:13 05:52 07:48 Temperature 97.6 F 98.2 F Pulse Rate [ 84 Left Dorsalis Pedis] Pulse Rate [ 101 H 111 H Right Dorsalis Pedis] Respiratory 18 18 Rate Blood Pressure 124/75 110/64 [Left Arm] O2 Sat by Pulse 99 94 Oximetry 12/03/16 08:00 Temperature 98.7 F Pulse Rate [ Left Dorsalis Pedis] Pulse Rate [ 98 H Right Dorsalis Pedis] Respiratory 18 Rate Blood Pressure 137/96 [Left Arm] O2 Sat by Pulse 96 Oximetry Constitutional: no acute distress, alert, other (morbidly obese, alert off o2) Eyes: non-icteric ENT: other (crowded oropharynx) Neck: supple, no JVD Effort: normal Ascultation: Bilateral: clear, diminished breath sounds Cardiovascular: regular rate and rhythm Gastrointestinal: normoactive bowel sounds, non-distended Integumentary: normal Extremities: no cyanosis, no edema, pulses normal Neurologic: normal mental status, non-focal exam, pupils equal and round, CN II- XII normal, motor strength normal and CBC and BMP: 12/03/16 05:00 12/03/16 05:00 ABG, PT/INR, D-dimer: PT/INR, D-dimer PT 23.9 Sec. (12.2-14.9) H 11/30/16 17:15 INR 2.13 (0.87-1.13) H 11/30/16 17:15 Abnormal lab findings: Abnormal Labs 11/27/16 11/27/16 11/27/16 02:04 02:24 02:58 WBC 11.1 H RBC Hgb 11.6 L Hct MCV 83 L MCH 26 L MCHC 31 L RDW 17.0 H Plt Count Lymph % (Auto) [place] % (Auto) Lymph # Seg Neutrophils % Seg Neuts % (Manual) Lymphocytes % (Manual) Monocytes % (Manual) 15.0 H Seg Neutrophils # Man Lymphocytes # (Manual) Monocytes # (Manual) 1.7 H PT INR APTT Fibrinogen Heparin Anti-Xa Level Sodium 133 L Potassium Chloride 96.4 L Carbon Dioxide 16 L D BUN 23 H Creatinine 0.5 L D Glucose 214 H POC Glucose 211 H Calcium AST ALT Total Protein Albumin Urine WBC (Auto) 11/27/16 11/27/16 11/27/16 02:58 06:20 06:20 WBC 13.2 H RBC Hgb 11.1 L Hct MCV 82 L MCH 26 L MCHC 31 L RDW 16.9 H Plt Count 472 H Lymph % (Auto) [place] % (Auto) Lymph # Seg Neutrophils % Seg Neuts % (Manual) 82.0 H Lymphocytes % (Manual) 6.0 L Monocytes % (Manual) 9.0 H Seg Neutrophils # Man 10.8 H Lymphocytes # (Manual) 0.8 L Monocytes # (Manual) 1.2 H PT 15.9 H 18.5 H INR 1.28 H 1.54 H APTT 46.2 H Fibrinogen 603 H Heparin Anti-Xa Level Sodium Potassium Chloride Carbon Dioxide BUN Creatinine Glucose POC Glucose Calcium AST ALT Total Protein Albumin Urine WBC (Auto) 11/27/16 11/27/16 11/27/16 06:20 06:20 09:45 WBC 11.6 H RBC Hgb 11.2 L Hct 34.5 L MCV 81 L MCH 26 L MCHC RDW 17.0 H Plt Count Lymph % (Auto) [place] % (Auto) Lymph # Seg Neutrophils % Seg Neuts % (Manual) 85.0 H Lymphocytes % (Manual) 3.0 L Monocytes % (Manual) Seg Neutrophils # Man 9.9 H Lymphocytes # (Manual) 0.3 L Monocytes # (Manual) PT INR APTT Fibrinogen Heparin Anti-Xa Level 0.99 H Sodium 136 L Potassium Chloride 96.6 L Carbon Dioxide 17 L BUN 23 H Creatinine 0.6 L Glucose 223 H POC Glucose Calcium AST ALT Total Protein Albumin Urine WBC (Auto) 11/27/16 11/27/16 11/27/16 15:01 17:00 17:00 WBC RBC Hgb 10.9 L Hct 33.2 L MCV 81 L MCH 27 L MCHC RDW 16.9 H Plt Count Lymph % (Auto) [place] % (Auto) Lymph # Seg Neutrophils % Seg Neuts % (Manual) 80.0 H Lymphocytes % (Manual) 9.0 L Monocytes % (Manual) 9.0 H Seg Neutrophils # Man Lymphocytes # (Manual) 0.9 L Monocytes # (Manual) 0.9 H PT INR APTT Fibrinogen 533 H Heparin Anti-Xa Level 0.81 H Sodium Potassium Chloride Carbon Dioxide BUN Creatinine Glucose POC Glucose 254 H Calcium AST ALT Total Protein Albumin Urine WBC (Auto) 11/27/16 11/27/16 11/27/16 17:41 22:30 23:00 WBC RBC Hgb 10.0 L Hct 30.4 L MCV 82 L MCH 27 L MCHC RDW 17.0 H Plt Count Lymph % (Auto) [place] % (Auto) 8.2 H Lymph # Seg Neutrophils % 75.1 H Seg Neuts % (Manual) Lymphocytes % (Manual) Monocytes % (Manual) Seg Neutrophils # Man Lymphocytes # (Manual) Monocytes # (Manual) PT INR APTT Fibrinogen Heparin Anti-Xa Level Sodium Potassium Chloride Carbon Dioxide BUN Creatinine Glucose POC Glucose 242 H 199 H Calcium AST ALT Total Protein Albumin Urine WBC (Auto) 11/28/16 11/28/16 11/28/16 05:00 05:00 05:00 WBC RBC Hgb 9.8 L Hct 30.0 L MCV 82 L MCH 27 L MCHC RDW 17.1 H Plt Count Lymph % (Auto) [place] % (Auto) 7.7 H Lymph # 1.1 L Seg Neutrophils % 75.1 H Seg Neuts % (Manual) Lymphocytes % (Manual) Monocytes % (Manual) Seg Neutrophils # Man Lymphocytes # (Manual) Monocytes # (Manual) PT 19.7 H INR 1.67 H APTT 125.9 H* Fibrinogen Heparin Anti-Xa Level Sodium Potassium Chloride 107.3 H Carbon Dioxide 17 L BUN Creatinine 0.4 L Glucose 164 H POC Glucose Calcium 8.3 L AST ALT Total Protein Albumin Urine WBC (Auto) 11/28/16 11/28/16 11/28/16 07:40 14:00 14:00 WBC RBC Hgb Hct MCV MCH MCHC RDW Plt Count Lymph % (Auto) [place] % (Auto) Lymph # Seg Neutrophils % Seg Neuts % (Manual) Lymphocytes % (Manual) Monocytes % (Manual) Seg Neutrophils # Man Lymphocytes # (Manual) Monocytes # (Manual) PT INR APTT 65.5 H* Fibrinogen Heparin Anti-Xa Level 0.23 L Sodium Potassium Chloride Carbon Dioxide BUN Creatinine Glucose POC Glucose 174 H Calcium AST ALT Total Protein Albumin Urine WBC (Auto) 11/28/16 11/28/16 11/28/16 16:12 21:40 21:48 WBC RBC 3.31 L Hgb 8.8 L Hct 27.0 L MCV 82 L MCH 27 L MCHC RDW 16.8 H Plt Count Lymph % (Auto) 12.9 L [place] % (Auto) 7.7 H Lymph # 0.8 L Seg Neutrophils % 78.5 H Seg Neuts % (Manual) Lymphocytes % (Manual) Monocytes % (Manual) Seg Neutrophils # Man Lymphocytes # (Manual) Monocytes # (Manual) PT INR APTT Fibrinogen Heparin Anti-Xa Level Sodium Potassium Chloride Carbon Dioxide BUN Creatinine Glucose POC Glucose 144 H 153 H Calcium AST ALT Total Protein Albumin Urine WBC (Auto) 11/28/16 11/28/16 11/29/16 22:07 23:36 06:00 WBC RBC 3.18 L Hgb 8.6 L Hct 26.3 L MCV 83 L MCH 27 L MCHC RDW 16.6 H Plt Count Lymph % (Auto) [place] % (Auto) 8.5 H Lymph # 0.9 L Seg Neutrophils % 73.5 H Seg Neuts % (Manual) Lymphocytes % (Manual) Monocytes % (Manual) Seg Neutrophils # Man Lymphocytes # (Manual) Monocytes # (Manual) PT INR APTT Fibrinogen Heparin Anti-Xa Level < 0.10 L Sodium Potassium Chloride Carbon Dioxide BUN Creatinine Glucose POC Glucose 158 H Calcium AST ALT Total Protein Albumin Urine WBC (Auto) 11/29/16 11/29/16 11/29/16 06:00 08:17 08:24 WBC RBC Hgb Hct MCV MCH MCHC RDW Plt Count Lymph % (Auto) [place] % (Auto) Lymph # Seg Neutrophils % Seg Neuts % (Manual) Lymphocytes % (Manual) Monocytes % (Manual) Seg Neutrophils # Man Lymphocytes # (Manual) Monocytes # (Manual) PT INR APTT Fibrinogen Heparin Anti-Xa Level < 0.10 L Sodium Potassium 3.0 L Chloride 107.3 H Carbon Dioxide 19 L BUN Creatinine 0.3 L Glucose 116 H POC Glucose 115 H Calcium 8.2 L AST ALT Total Protein Albumin Urine WBC (Auto) 11/29/16 11/29/16 11/29/16 11:26 15:22 21:33 WBC RBC Hgb Hct MCV MCH MCHC RDW Plt Count Lymph % (Auto) [place] % (Auto) Lymph # Seg Neutrophils % Seg Neuts % (Manual) Lymphocytes % (Manual) Monocytes % (Manual) Seg Neutrophils # Man Lymphocytes # (Manual) Monocytes # (Manual) PT INR APTT Fibrinogen Heparin Anti-Xa Level Sodium Potassium Chloride Carbon Dioxide BUN Creatinine Glucose POC Glucose 172 H 167 H 152 H Calcium AST ALT Total Protein Albumin Urine WBC (Auto) 11/30/16 11/30/16 11/30/16 01:30 04:18 04:18 WBC RBC 3.28 L Hgb 8.8 L Hct 27.3 L MCV 83 L MCH 27 L MCHC RDW 16.9 H Plt Count Lymph % (Auto) [place] % (Auto) 10.2 H Lymph # 0.9 L Seg Neutrophils % 73.3 H Seg Neuts % (Manual) Lymphocytes % (Manual) Monocytes % (Manual) Seg Neutrophils # Man Lymphocytes # (Manual) Monocytes # (Manual) PT INR APTT Fibrinogen Heparin Anti-Xa Level < 0.10 L Sodium Potassium Chloride Carbon Dioxide 19 L BUN 8 L Creatinine 0.3 L Glucose 132 H POC Glucose Calcium 7.9 L AST ALT Total Protein Albumin Urine WBC (Auto) 11/30/16 11/30/16 11/30/16 04:18 07:32 09:27 WBC RBC Hgb Hct MCV MCH MCHC RDW Plt Count Lymph % (Auto) [place] % (Auto) Lymph # Seg Neutrophils % Seg Neuts % (Manual) Lymphocytes % (Manual) Monocytes % (Manual) Seg Neutrophils # Man Lymphocytes # (Manual) Monocytes # (Manual) PT INR APTT 50.1 H Fibrinogen Heparin Anti-Xa Level Sodium Potassium Chloride Carbon Dioxide BUN Creatinine Glucose POC Glucose 125 H Calcium AST 287 H ALT 841 H Total Protein 6.0 L Albumin 2.7 L Urine WBC (Auto) 11/30/16 11/30/16 11/30/16 11:27 16:49 17:15 WBC RBC Hgb Hct MCV MCH MCHC RDW Plt Count Lymph % (Auto) [place] % (Auto) Lymph # Seg Neutrophils % Seg Neuts % (Manual) Lymphocytes % (Manual) Monocytes % (Manual) Seg Neutrophils # Man Lymphocytes # (Manual) Monocytes # (Manual) PT 23.9 H INR 2.13 H APTT 55.4 H Fibrinogen Heparin Anti-Xa Level Sodium Potassium Chloride Carbon Dioxide BUN Creatinine Glucose POC Glucose 161 H 140 H Calcium AST ALT Total Protein Albumin Urine WBC (Auto) 11/30/16 11/30/16 11/30/16 20:48 23:00 Unknown WBC RBC Hgb Hct MCV MCH MCHC RDW Plt Count Lymph % (Auto) [place] % (Auto) Lymph # Seg Neutrophils % Seg Neuts % (Manual) Lymphocytes % (Manual) Monocytes % (Manual) Seg Neutrophils # Man Lymphocytes # (Manual) Monocytes # (Manual) PT INR APTT 151.3 H* Fibrinogen Heparin Anti-Xa Level 0.14 L Sodium Potassium Chloride Carbon Dioxide BUN Creatinine Glucose POC Glucose 157 H Calcium AST ALT Total Protein Albumin Urine WBC (Auto) 11/30/16 12/01/16 12/01/16 Unknown 04:00 07:16 WBC RBC 3.45 L Hgb 9.1 L Hct 28.4 L MCV 82 L MCH 26 L MCHC RDW 17.2 H Plt Count Lymph % (Auto) [place] % (Auto) 10.8 H Lymph # 0.9 L Seg Neutrophils % Seg Neuts % (Manual) Lymphocytes % (Manual) Monocytes % (Manual) Seg Neutrophils # Man Lymphocytes # (Manual) Monocytes # (Manual) PT INR APTT 70.3 H* Fibrinogen Heparin Anti-Xa Level Sodium Potassium Chloride Carbon Dioxide BUN Creatinine Glucose POC Glucose Calcium AST ALT Total Protein Albumin Urine WBC (Auto) 19.0 H 12/01/16 12/01/16 12/01/16 10:30 18:26 22:33 WBC RBC Hgb Hct MCV MCH MCHC RDW Plt Count Lymph % (Auto) [place] % (Auto) Lymph # Seg Neutrophils % Seg Neuts % (Manual) Lymphocytes % (Manual) Monocytes % (Manual) Seg Neutrophils # Man Lymphocytes # (Manual) Monocytes # (Manual) PT INR APTT 52.8 H Fibrinogen Heparin Anti-Xa Level Sodium Potassium Chloride Carbon Dioxide BUN Creatinine Glucose POC Glucose 176 H 164 H Calcium AST ALT Total Protein Albumin Urine WBC (Auto) 12/02/16 12/02/16 12/02/16 06:48 08:21 13:24 WBC RBC Hgb Hct MCV MCH MCHC RDW Plt Count Lymph % (Auto) [place] % (Auto) Lymph # Seg Neutrophils % Seg Neuts % (Manual) Lymphocytes % (Manual) Monocytes % (Manual) Seg Neutrophils # Man Lymphocytes # (Manual) Monocytes # (Manual) PT INR APTT 52.1 H Fibrinogen Heparin Anti-Xa Level Sodium Potassium Chloride Carbon Dioxide BUN Creatinine Glucose POC Glucose 126 H 123 H Calcium AST ALT Total Protein Albumin Urine WBC (Auto) 12/02/16 12/02/16 12/02/16 14:58 17:09 21:30 WBC RBC Hgb Hct MCV MCH MCHC RDW Plt Count Lymph % (Auto) [place] % (Auto) Lymph # Seg Neutrophils % Seg Neuts % (Manual) Lymphocytes % (Manual) Monocytes % (Manual) Seg Neutrophils # Man Lymphocytes # (Manual) Monocytes # (Manual) PT INR APTT 69.4 H* Fibrinogen Heparin Anti-Xa Level Sodium Potassium Chloride Carbon Dioxide BUN Creatinine Glucose POC Glucose 149 H 145 H Calcium AST ALT Total Protein Albumin Urine WBC (Auto) 12/02/16 12/03/16 12/03/16 22:00 05:00 05:00 WBC RBC Hgb 10.1 L Hct 31.0 L MCV MCH MCHC RDW Plt Count Lymph % (Auto) [place] % (Auto) Lymph # Seg Neutrophils % Seg Neuts % (Manual) Lymphocytes % (Manual) Monocytes % (Manual) Seg Neutrophils # Man Lymphocytes # (Manual) Monocytes # (Manual) PT INR APTT 54.6 H Fibrinogen Heparin Anti-Xa Level Sodium Potassium 2.8 L* D Chloride Carbon Dioxide BUN 4 L Creatinine 0.2 L Glucose 107 H POC Glucose Calcium AST ALT 142 H Total Protein 5.7 L Albumin 2.6 L Urine WBC (Auto) 12/03/16 05:00 WBC RBC Hgb Hct MCV MCH MCHC RDW Plt Count Lymph % (Auto) [place] % (Auto) Lymph # Seg Neutrophils % Seg Neuts % (Manual) Lymphocytes % (Manual) Monocytes % (Manual) Seg Neutrophils # Man Lymphocytes # (Manual) Monocytes # (Manual) PT INR APTT 117.3 H* Fibrinogen Heparin Anti-Xa Level Sodium Potassium Chloride Carbon Dioxide BUN Creatinine Glucose POC Glucose Calcium AST ALT Total Protein Albumin Urine WBC (Auto)
--- NOTE | 2016-12-03 13:15 | Progress Note ---
Assessment and Plan Assessment and plan: 1. Extensive bilateral pulmonary emboli with saddle emboli. Patient is status post bilateral EKOS catheter placement. Patient with successful EKOS catheter directed pulmonary artery thrombolytic therapy and percutaneous thrombectomy with residual thrombus in the right distal main extending into the right upper lobe. Patient also with successful IVC filter placement. IVC filter removal in 3-6 months per IR. Bilateral lower extremity Dopplers negative. Heparin discontinued and started argatroban given the thrombocytopenia. Patient will need to be switched to oral anticoagulation. Hematology followed. 2. Psoas abscess. Patient with fevers today. Continue current antibiotics. ? drug fever. If fevers persist, Consider ID consultation. Check chest x-ray, blood cultures and urinalysis. 3. Hypotension secondary to pulmonary emboli. Resolved. 4. Diabetes type 2. Continue sliding-scale insulin and Accu-Cheks. 1800 ADA diet. 5. Obesity/OHS/LIVAN. CPAP at night. 6. Acute hypoxic respiratory failure. Etiology secondary to #1. Continue supportive care. 7. Thrombocytopenia. Patient with a greater than 50% drop in platelets since admission. Check HIT. Discontinue heparin and start argatroban. Discussed with pharmacy for dosing. 8. Hypokalemia. Replete potassium. History Interval history: 36-year-old man with a history of hypertension, diabetes, obesity, chronic pain was transfer from [facility] to [facility] on the sixth floor. Patient was diagnosed with sepsis secondary to pneumonia, psoas abscess, MSSA bacteremia. He was in respiratory failure, he was trached. While on LTAC, the patient was tachycardic, CAT scan was done which shows extensive bilateral pulmonary emboli in the saddle emboli. The patient was started on heparin drip. Patient had successful placement of bilateral EKOS catheters into the pulmonary arteries with angiographic confirmation. No new issues overnight. Hospitalist Physical - Constitutional Vitals: Temp Pulse Resp BP Pulse Ox 98.7 F 98 H 18 137/96 96 12/03/16 08:00 12/03/16 08:00 12/03/16 08:00 12/03/16 08:00 12/03/16 08:00 General appearance: Present: no acute distress - EENT Eyes: Present: PERRL, EOM intact ENT: hearing intact, clear oral mucosa, dentition normal - Neck Neck: Present: supple, normal ROM - Respiratory Respiratory effort: normal Respiratory: bilateral: CTA - Cardiovascular Rhythm: regular Heart Sounds: Present: S1 & S2. Absent: gallop, rub - Extremities Extremities: no ischemia, No edema, Full ROM - Abdominal General gastrointestinal: soft, non-tender, non-distended, normal bowel sounds - Integumentary Integumentary: Present: clear, warm, dry - Neurologic Neurologic: CNII-XII intact, moves all extremities Results - Labs CBC & Chem 7: 12/03/16 05:00 12/03/16 05:00 Labs: Laboratory Last Values WBC 4.9 K/mm3 (4.5-11.0) 12/01/16 07:16 RBC 3.45 M/mm3 (3.65-5.03) L 12/01/16 07:16 Hgb 10.1 gm/dl (11.8-15.2) L 12/03/16 05:00 Hct 31.0 % (35.5-45.6) L 12/03/16 05:00 MCV 82 fl (84-94) L 12/01/16 07:16 MCH 26 pg (28-32) L 12/01/16 07:16 MCHC 32 % (32-34) 12/01/16 07:16 RDW 17.2 % (13.2-15.2) H 12/01/16 07:16 Plt Count 300 K/mm3 (140-440) 12/03/16 05:00 Lymph % (Auto) 17.6 % (13.4-35.0) 12/01/16 07:16 [place] % (Auto) 10.8 % (0.0-7.3) H 12/01/16 07:16 Eos % (Auto) 3.3 % (0.0-4.3) 12/01/16 07:16 Baso % (Auto) 0.7 % (0.0-1.8) 12/01/16 07:16 Lymph # 0.9 K/mm3 (1.2-5.4) L 12/01/16 07:16 [place] # 0.5 K/mm3 (0.0-0.8) 12/01/16 07:16 Eos # 0.2 K/mm3 (0.0-0.4) 12/01/16 07:16 Baso # 0.0 K/mm3 (0.0-0.1) 12/01/16 07:16 Add Manual Diff Complete 11/27/16 17:00 Total Counted 100 11/27/16 17:00 Seg Neutrophils % 67.6 % (40.0-70.0) 12/01/16 07:16 Seg Neuts % (Manual) 80.0 % (40.0-70.0) H 11/27/16 17:00 Band Neutrophils % 0 % 11/27/16 17:00 Lymphocytes % (Manual) 9.0 % (13.4-35.0) L 11/27/16 17:00 Reactive Lymphs % (Man) 0 % 11/27/16 17:00 Monocytes % (Manual) 9.0 % (0.0-7.3) H 11/27/16 17:00 Eosinophils % (Manual) 0 % (0.0-4.3) 11/27/16 17:00 Basophils % (Manual) 0 % (0.0-1.8) 11/27/16 17:00 Metamyelocytes % 2.0 % 11/27/16 17:00 Myelocytes % 0 % 11/27/16 17:00 Promyelocytes % 0 % 11/27/16 17:00 Blast Cells % 0 % 11/27/16 17:00 Nucleated RBC % Not Reportable 11/27/16 17:00 Seg Neutrophils # 3.3 K/mm3 (1.8-7.7) 12/01/16 07:16 Seg Neutrophils # Man 7.7 K/mm3 (1.8-7.7) 11/27/16 17:00 Band Neutrophils # 0.0 K/mm3 11/27/16 17:00 Lymphocytes # (Manual) 0.9 K/mm3 (1.2-5.4) L 11/27/16 17:00 Abs React Lymphs (Man) 0.0 K/mm3 11/27/16 17:00 Monocytes # (Manual) 0.9 K/mm3 (0.0-0.8) H 11/27/16 17:00 Eosinophils # (Manual) 0.0 K/mm3 (0.0-0.4) 11/27/16 17:00 Basophils # (Manual) 0.0 K/mm3 (0.0-0.1) 11/27/16 17:00 Metamyelocytes # 0.2 K/mm3 11/27/16 17:00 Myelocytes # 0.0 K/mm3 11/27/16 17:00 Promyelocytes # 0.0 K/mm3 11/27/16 17:00 Blast Cells # 0.0 K/mm3 11/27/16 17:00 WBC Morphology Not Reportable 11/27/16 17:00 Hypersegmented Neuts Not Reportable 11/27/16 17:00 Hyposegmented Neuts Not Reportable 11/27/16 17:00 Hypogranular Neuts Not Reportable 11/27/16 17:00 Smudge Cells Not Reportable 11/27/16 17:00 Toxic Granulation Not Reportable 11/27/16 17:00 Toxic Vacuolation Not Reportable 11/27/16 17:00 Dohle Bodies Not Reportable 11/27/16 17:00 Pelger-Huet Anomaly Not Reportable 11/27/16 17:00 Mati Rods Not Reportable 11/27/16 17:00 Platelet Estimate Consistent w auto 11/27/16 17:00 Clumped Platelets Not Reportable 11/27/16 17:00 Plt Clumps, EDTA Not Reportable 11/27/16 17:00 Large Platelets Not Reportable 11/27/16 17:00 Giant Platelets Not Reportable 11/27/16 17:00 Platelet Satelliting Not Reportable 11/27/16 17:00 Plt Morphology Comment Not Reportable 11/27/16 17:00 RBC Morphology Not Reportable 11/27/16 17:00 Dimorphic RBCs Not Reportable 11/27/16 17:00 Polychromasia Not Reportable 11/27/16 17:00 Hypochromasia Not Reportable 11/27/16 17:00 Poikilocytosis Not Reportable 11/27/16 17:00 Anisocytosis 1+ 11/27/16 17:00 Microcytosis Not Reportable 11/27/16 17:00 Macrocytosis Not Reportable 11/27/16 17:00 Spherocytes Not Reportable 11/27/16 17:00 Pappenheimer Bodies Not Reportable 11/27/16 17:00 Sickle Cells Not Reportable 11/27/16 17:00 Target Cells Not Reportable 11/27/16 17:00 Tear Drop Cells Not Reportable 11/27/16 17:00 Ovalocytes Not Reportable 11/27/16 17:00 Helmet Cells Not Reportable 11/27/16 17:00 [place] Bodies Not Reportable 11/27/16 17:00 [place] Rings Not Reportable 11/27/16 17:00 [place] Cells Not Reportable 11/27/16 17:00 Bite Cells Not Reportable 11/27/16 17:00 Crenated Cell Not Reportable 11/27/16 17:00 Elliptocytes Not Reportable 11/27/16 17:00 Acanthocytes (Spur) Not Reportable 11/27/16 17:00 Rouleaux Not Reportable 11/27/16 17:00 Hemoglobin C Crystals Not Reportable 11/27/16 17:00 Schistocytes Not Reportable 11/27/16 17:00 Malaria parasites Not Reportable 11/27/16 17:00 Michael Bodies Not Reportable 11/27/16 17:00 Hem Pathologist Commnt No 11/27/16 17:00 PT 23.9 Sec. (12.2-14.9) H 11/30/16 17:15 INR 2.13 (0.87-1.13) H 11/30/16 17:15 APTT 117.3 Sec. (24.2-36.6) H* 12/03/16 05:00 Fibrinogen 474 mg/dl (211-480) 11/27/16 23:00 Heparin Anti-Xa Level 0.14 U.I./ml (0.3-0.7) L 11/30/16 Unknown Sodium 145 mmol/L (137-145) D 12/03/16 05:00 Potassium 2.8 mmol/L (3.6-5.0) L* D 12/03/16 05:00 Chloride 106.9 mmol/L (98-107) 12/03/16 05:00 Carbon Dioxide 25 mmol/L (22-30) 12/03/16 05:00 Anion Gap 16 mmol/L 12/03/16 05:00 BUN 4 mg/dL (9-20) L 12/03/16 05:00 Creatinine 0.2 mg/dL (0.8-1.5) L 12/03/16 05:00 Estimated GFR > 60 ml/min 12/03/16 05:00 BUN/Creatinine Ratio 20.00 % 12/03/16 05:00 Glucose 107 mg/dL (75-100) H 12/03/16 05:00 POC Glucose 145 (70-105) H 12/02/16 21:30 Calcium 8.8 mg/dL (8.4-10.2) 12/03/16 05:00 Total Bilirubin 0.3 mg/dL (0.1-1.2) 12/03/16 05:00 Direct Bilirubin 0.2 mg/dL (0-0.2) 11/30/16 04:18 Indirect Bilirubin 0.5 mg/dL 11/30/16 04:18 AST 18 units/L (5-40) 12/03/16 05:00 ALT 142 units/L (7-56) H 12/03/16 05:00 Alkaline Phosphatase 94 units/L (35-129) 12/03/16 05:00 Total Protein 5.7 g/dL (6.3-8.2) L 12/03/16 05:00 Albumin 2.6 g/dL (3.9-5) L 12/03/16 05:00 Albumin/Globulin Ratio 0.8 % 12/03/16 05:00 Urine Color Yellow (Yellow) 11/30/16 Unknown Urine Turbidity Slightly-cloudy (Clear) 11/30/16 Unknown Urine pH 5.0 (5.0-7.0) 11/30/16 Unknown Ur Specific [place] 1.020 (1.003-1.030) 11/30/16 Unknown Urine Protein 30 mg/dl mg/dL (Negative) 11/30/16 Unknown Urine Glucose (UA) Neg mg/dL (Negative) 11/30/16 Unknown Urine Ketones Neg mg/dL (Negative) 11/30/16 Unknown Urine Blood Sm (Negative) 11/30/16 Unknown Urine Nitrite Neg (Negative) 11/30/16 Unknown Urine Bilirubin Neg (Negative) 11/30/16 Unknown Urine Urobilinogen 2.0 mg/dL (<2.0) 11/30/16 Unknown Ur Leukocyte Esterase Sm (Negative) 11/30/16 Unknown Urine WBC (Auto) 19.0 /HPF (0.0-6.0) H 11/30/16 Unknown Urine RBC (Auto) 5.0 /HPF (0.0-6.0) 11/30/16 Unknown U Epithel Cells (Auto) < 1.0 /HPF (0-13.0) 11/30/16 Unknown Uric Acid Crystals 1+ 11/30/16 Unknown Urine Mucus 1+ /HPF 11/30/16 Unknown Blood Type O POSITIVE 11/27/16 02:58 Antibody Screen Negative 11/27/16 02:58
[2016-12-03] MEDS: XANAX PO PRN (14:22)
[2016-12-03] MEDS: PERCOCET 5/325 PO PRN (14:23)
[2016-12-03] MEDS: NORCO 5/325 PO PRN (18:18)
[2016-12-04] MEDS: ALUM-MAG HYDROX-SIMETH 200-200-20MG/5ML PO PRN (01:31)
[2016-12-04] MEDS: ARGATROBAN 250 MG in NACL 0.9% 250ML 247.5 ML IV SCH ×4 (01:35→18:04)
[2016-12-04] MEDS: PERCOCET 5/325 PO PRN (02:00)
[2016-12-04] MEDS: ceFAZolin 2 GM in NACL 0.9% 100 ML IV SCH ×3 (05:43→22:17)
[2016-12-04 06:05] LABS: Basophils % (Auto) 0.8 % (0.0-1.8); Hematocrit 31.5 % (35.5-45.6); Hemoglobin 10.1 gm/dl (11.8-15.2); Mean Corpuscular HGB Conc 32 % (32-34); Mean Corpuscular Hemoglobin 26 pg (28-32); Mean Corpuscular Volume 82 fl (84-94); Platelet Count 309 K/mm3 (140-440); Red Blood Count 3.83 M/mm3 (3.65-5.03); Red Cell Distribution Width 17.6 % (13.2-15.2); White Blood Count 5.3 K/mm3 (4.5-11.0)
[2016-12-04 06:16] LABS: Blood Urea Nitrogen 5 mg/dL (9-20); Calcium 8.6 mg/dL (8.4-10.2); Carbon Dioxide 25 mmol/L (22-30); Chloride 107.2 mmol/L (98-107); Glucose 114 mg/dL (75-100); Potassium 3.4 mmol/L (3.6-5.0); Sodium 144 mmol/L (137-145)
[2016-12-04 06:24] LABS: Anion Gap 15 mmol/L
[2016-12-04] MEDS: NOVOLOG SUB-Q SCH ×5 (07:46→23:53)
--- NOTE | 2016-12-04 08:52 | Hem/Onc Progress Note ---
Assessment and Plan Platelets have improved. Awaiting heparin-induced thrombocytopenia assay. Patient would need long-term anticoagulation regardless of the assay. Once stable, may consider doing hypercoagulable workup also especially since the patient is quite young although the circumstances that led who the pulmonary embolus could be the sole cause of his thrombophilia. May consider Xarelto or eliquis once hit panel is back. Subjective Date of service: 12/04/16 Interval history: Patient feels fair. Denies any significant shortness of breath. Denies any active bleeding. Tolerating argatroban well. Awaiting heparin-induced thrombus cytopenia assay Objective - Constitutional Vitals: Last Vital Signs Temp 98.4 F 12/04/16 08:23 Pulse 87 12/04/16 08:23 Resp 18 12/04/16 08:23 BP 139/95 12/04/16 08:23 Pulse Ox 97 12/04/16 08:23 General appearance: no acute distress Performance status: 4-completely disabled - Neck Neck: supple - Respiratory Respiratory effort: Positive: normal Respiratory: bilateral: diminished - Cardiovascular Rhythm: regular - Gastrointestinal General gastrointestinal: Present: soft, non-tender - Labs Lab Results: Laboratory Results - last 24 hr 12/03/16 12/03/16 12/03/16 08:24 12:45 13:56 WBC RBC Hgb Hct MCV MCH MCHC RDW Plt Count Lymph % (Auto) [place] % (Auto) Eos % (Auto) Baso % (Auto) Lymph # [place] # Eos # Baso # Seg Neutrophils % Seg Neutrophils # APTT 61.5 H* Sodium Potassium Chloride Carbon Dioxide Anion Gap BUN Creatinine Estimated GFR BUN/Creatinine Ratio Glucose POC Glucose 111 H 148 H Calcium 12/03/16 12/03/16 12/03/16 16:49 19:34 21:48 WBC RBC Hgb Hct MCV MCH MCHC RDW Plt Count Lymph % (Auto) [place] % (Auto) Eos % (Auto) Baso % (Auto) Lymph # [place] # Eos # Baso # Seg Neutrophils % Seg Neutrophils # APTT 174.7 H* Sodium Potassium Chloride Carbon Dioxide Anion Gap BUN Creatinine Estimated GFR BUN/Creatinine Ratio Glucose POC Glucose 146 H 128 H Calcium 12/04/16 12/04/16 12/04/16 00:45 05:00 05:00 WBC 5.3 RBC 3.83 Hgb 10.1 L Hct 31.5 L MCV 82 L MCH 26 L MCHC 32 RDW 17.6 H Plt Count 309 Lymph % (Auto) 31.3 [place] % (Auto) 10.4 H Eos % (Auto) 4.0 Baso % (Auto) 0.8 Lymph # 1.7 [place] # 0.5 Eos # 0.2 Baso # 0.0 Seg Neutrophils % 53.5 Seg Neutrophils # 2.8 APTT 41.3 H Sodium 144 Potassium 3.4 L D Chloride 107.2 H Carbon Dioxide 25 Anion Gap 15 BUN 5 L Creatinine 0.2 L Estimated GFR > 60 BUN/Creatinine Ratio 25.00 Glucose 114 H POC Glucose Calcium 8.6 12/04/16 05:00 WBC RBC Hgb Hct MCV MCH MCHC RDW Plt Count Lymph % (Auto) [place] % (Auto) Eos % (Auto) Baso % (Auto) Lymph # [place] # Eos # Baso # Seg Neutrophils % Seg Neutrophils # APTT 51.7 H Sodium Potassium Chloride Carbon Dioxide Anion Gap BUN Creatinine Estimated GFR BUN/Creatinine Ratio Glucose POC Glucose Calcium
--- NOTE | 2016-12-04 09:39 | Progress Note ---
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 and hematology consult pending , once cleared suggest elquis 10mg bid for one week and then 5mg bid Hypotension-> resolved Acute respiratory failure-> resolved Diabetes Psoas abscess Subjective Date of service: 12/04/16 Principal diagnosis: saddle emboli with hypotension, status post thrombolysis Interval history: pt has no sob or chest pain Objective Vital Signs Temp Pulse Pulse Pulse Pulse Resp BP 12/04/16 09:25 14 12/04/16 09:10 95 H 12/04/16 08:23 98.4 F 87 18 139/95 12/04/16 07:08 78 139/88 12/04/16 06:11 97.7 F 93 H 18 142/103 12/04/16 01:26 98.3 F 88 20 128/97 12/03/16 22:23 91 H 16 12/03/16 22:00 100 H 20 12/03/16 21:00 97.9 F 94 H 18 128/87 12/03/16 16:30 97.9 F 103 H 18 113/84 12/03/16 13:47 98.3 F 101 H 20 134/84 Pulse Ox 12/04/16 09:25 12/04/16 09:10 12/04/16 08:23 97 12/04/16 07:08 12/04/16 06:11 96 12/04/16 01:26 95 12/03/16 22:23 99 12/03/16 22:00 12/03/16 21:00 97 12/03/16 16:30 97 12/03/16 13:47 97 - Physical Examination General: No Apparent Distress HEENT: Positive: Normocephaly, Mucus Membranes Moist Neck: Positive: neck supple, trachea midline Cardiac: Positive: Reg Rate and Rhythm, Audible Murmur Lungs: Positive: clear to auscultation Neuro: Positive: Grossly Intact Abdomen: Positive: Soft, Active Bowel Sounds. Negative: Tender Skin: Positive: Clear. Negative: Rash Extremities: Present: normal. Absent: edema - Labs and Meds Coagulation 12/03/16 12/03/1617 Range/Units 13:56 19:34 00:45 APTT 61.5 H* 174.7 H* 41.3 H (24.2-36.6) Sec. 12/04/16 Range/Units 05:00 APTT 51.7 H (24.2-36.6) Sec. CBC 12/04/16 Range/Units 05:00 WBC 5.3 (4.5-11.0) K/mm3 RBC 3.83 (3.65-5.03) M/mm3 Hgb 10.1 L (11.8-15.2) gm/dl Hct 31.5 L (35.5-45.6) % Plt Count 309 (140-440) K/mm3 Lymph # 1.7 (1.2-5.4) K/mm3 [place] # 0.5 (0.0-0.8) K/mm3 Eos # 0.2 (0.0-0.4) K/mm3 Baso # 0.0 (0.0-0.1) K/mm3 Comprehensive Metabolic Panel 12/04/16 Range/Units 05:00 Sodium 144 (137-145) mmol/L Potassium 3.4 L D (3.6-5.0) mmol/L Chloride 107.2 H (98-107) mmol/L Carbon Dioxide 25 (22-30) mmol/L BUN 5 L (9-20) mg/dL Creatinine 0.2 L (0.8-1.5) mg/dL Glucose 114 H (75-100) mg/dL Calcium 8.6 (8.4-10.2) mg/dL - Imaging and Cardiology EKG: image reviewed (st, 115, read by me) Echo: report reviewed (11/2016: EF 45-50%, RA/RV moderately dilated, RVSP 65mmHg ) - Telemetry EKG Rhythm: Sinus Tachycardia (at 100 no afib) - EKG Sinus rhythms and dysrhythmias: sinus tachycardia Repolarization changes or abnormalities: nonspecific abnormality, ST segment, and/or T wave
[2016-12-04] MEDS: PEPCID PO SCH ×2 (09:45→22:17)
[2016-12-04] MEDS: DOLOPHINE PO SCH (09:46)
[2016-12-04] MEDS: NYSTOP TP SCH ×2 (09:48→22:00)
[2016-12-04] MEDS: ATIVAN IV PRN (11:53)
--- NOTE | 2016-12-04 12:11 | Progress Note ---
Assessment and Plan 36 y/o morbidly obese male with saddle PE, status post thrombolysis. 1. continue PPV at night 2. Anticoagulation to be determined by heme Subjective Date of service: 12/04/16 Principal diagnosis: saddle emboli with hypotension, status post thrombolysis Interval history: No acute events. Wore CPAP last night. Off oxygen Objective Vital Signs - 12hr 12/04/16 12/04/16 12/04/16 01:26 06:11 07:08 Temperature 98.3 F 97.7 F Pulse Rate Pulse Rate [ Left Radial] Pulse Rate [ 88 93 H 78 Right Radial] Respiratory 20 18 Rate Blood Pressure 128/97 142/103 139/88 [Left Arm] O2 Sat by Pulse 95 96 Oximetry 12/04/16 12/04/16 12/04/16 08:23 09:10 09:25 Temperature 98.4 F Pulse Rate 95 H Pulse Rate [ 87 Left Radial] Pulse Rate [ Right Radial] Respiratory 18 14 Rate Blood Pressure 139/95 [Left Arm] O2 Sat by Pulse 97 Oximetry 12/04/16 10:02 Temperature Pulse Rate 95 H Pulse Rate [ Left Radial] Pulse Rate [ Right Radial] Respiratory Rate Blood Pressure [Left Arm] O2 Sat by Pulse Oximetry Constitutional: no acute distress, alert, other (morbidly obese, alert off o2) Eyes: non-icteric ENT: other (crowded oropharynx) Neck: supple, no JVD Effort: normal Ascultation: Bilateral: clear, diminished breath sounds Cardiovascular: regular rate and rhythm Gastrointestinal: normoactive bowel sounds, non-distended Integumentary: normal Extremities: no cyanosis, no edema, pulses normal Neurologic: normal mental status, non-focal exam, pupils equal and round, CN II- XII normal, motor strength normal and CBC and BMP: 12/04/16 05:00 12/04/16 05:00 ABG, PT/INR, D-dimer: PT/INR, D-dimer PT 23.9 Sec. (12.2-14.9) H 11/30/16 17:15 INR 2.13 (0.87-1.13) H 11/30/16 17:15 Abnormal lab findings: Abnormal Labs 11/27/16 11/27/16 11/27/16 02:04 02:24 02:58 WBC 11.1 H RBC Hgb 11.6 L Hct MCV 83 L MCH 26 L MCHC 31 L RDW 17.0 H Plt Count Lymph % (Auto) [place] % (Auto) Lymph # Seg Neutrophils % Seg Neuts % (Manual) Lymphocytes % (Manual) Monocytes % (Manual) 15.0 H Seg Neutrophils # Man Lymphocytes # (Manual) Monocytes # (Manual) 1.7 H PT INR APTT Fibrinogen Heparin Anti-Xa Level Sodium 133 L Potassium Chloride 96.4 L Carbon Dioxide 16 L D BUN 23 H Creatinine 0.5 L D Glucose 214 H POC Glucose 211 H Calcium AST ALT Total Protein Albumin Urine WBC (Auto) 11/27/16 11/27/16 11/27/16 02:58 06:20 06:20 WBC 13.2 H RBC Hgb 11.1 L Hct MCV 82 L MCH 26 L MCHC 31 L RDW 16.9 H Plt Count 472 H Lymph % (Auto) [place] % (Auto) Lymph # Seg Neutrophils % Seg Neuts % (Manual) 82.0 H Lymphocytes % (Manual) 6.0 L Monocytes % (Manual) 9.0 H Seg Neutrophils # Man 10.8 H Lymphocytes # (Manual) 0.8 L Monocytes # (Manual) 1.2 H PT 15.9 H 18.5 H INR 1.28 H 1.54 H APTT 46.2 H Fibrinogen 603 H Heparin Anti-Xa Level Sodium Potassium Chloride Carbon Dioxide BUN Creatinine Glucose POC Glucose Calcium AST ALT Total Protein Albumin Urine WBC (Auto) 11/27/16 11/27/16 11/27/16 06:20 06:20 09:45 WBC 11.6 H RBC Hgb 11.2 L Hct 34.5 L MCV 81 L MCH 26 L MCHC RDW 17.0 H Plt Count Lymph % (Auto) [place] % (Auto) Lymph # Seg Neutrophils % Seg Neuts % (Manual) 85.0 H Lymphocytes % (Manual) 3.0 L Monocytes % (Manual) Seg Neutrophils # Man 9.9 H Lymphocytes # (Manual) 0.3 L Monocytes # (Manual) PT INR APTT Fibrinogen Heparin Anti-Xa Level 0.99 H Sodium 136 L Potassium Chloride 96.6 L Carbon Dioxide 17 L BUN 23 H Creatinine 0.6 L Glucose 223 H POC Glucose Calcium AST ALT Total Protein Albumin Urine WBC (Auto) 11/27/16 11/27/16 11/27/16 15:01 17:00 17:00 WBC RBC Hgb 10.9 L Hct 33.2 L MCV 81 L MCH 27 L MCHC RDW 16.9 H Plt Count Lymph % (Auto) [place] % (Auto) Lymph # Seg Neutrophils % Seg Neuts % (Manual) 80.0 H Lymphocytes % (Manual) 9.0 L Monocytes % (Manual) 9.0 H Seg Neutrophils # Man Lymphocytes # (Manual) 0.9 L Monocytes # (Manual) 0.9 H PT INR APTT Fibrinogen 533 H Heparin Anti-Xa Level 0.81 H Sodium Potassium Chloride Carbon Dioxide BUN Creatinine Glucose POC Glucose 254 H Calcium AST ALT Total Protein Albumin Urine WBC (Auto) 11/27/16 11/27/16 11/27/16 17:41 22:30 23:00 WBC RBC Hgb 10.0 L Hct 30.4 L MCV 82 L MCH 27 L MCHC RDW 17.0 H Plt Count Lymph % (Auto) [place] % (Auto) 8.2 H Lymph # Seg Neutrophils % 75.1 H Seg Neuts % (Manual) Lymphocytes % (Manual) Monocytes % (Manual) Seg Neutrophils # Man Lymphocytes # (Manual) Monocytes # (Manual) PT INR APTT Fibrinogen Heparin Anti-Xa Level Sodium Potassium Chloride Carbon Dioxide BUN Creatinine Glucose POC Glucose 242 H 199 H Calcium AST ALT Total Protein Albumin Urine WBC (Auto) 11/28/16 11/28/16 11/28/16 05:00 05:00 05:00 WBC RBC Hgb 9.8 L Hct 30.0 L MCV 82 L MCH 27 L MCHC RDW 17.1 H Plt Count Lymph % (Auto) [place] % (Auto) 7.7 H Lymph # 1.1 L Seg Neutrophils % 75.1 H Seg Neuts % (Manual) Lymphocytes % (Manual) Monocytes % (Manual) Seg Neutrophils # Man Lymphocytes # (Manual) Monocytes # (Manual) PT 19.7 H INR 1.67 H APTT 125.9 H* Fibrinogen Heparin Anti-Xa Level Sodium Potassium Chloride 107.3 H Carbon Dioxide 17 L BUN Creatinine 0.4 L Glucose 164 H POC Glucose Calcium 8.3 L AST ALT Total Protein Albumin Urine WBC (Auto) 11/28/16 11/28/16 11/28/16 07:40 14:00 14:00 WBC RBC Hgb Hct MCV MCH MCHC RDW Plt Count Lymph % (Auto) [place] % (Auto) Lymph # Seg Neutrophils % Seg Neuts % (Manual) Lymphocytes % (Manual) Monocytes % (Manual) Seg Neutrophils # Man Lymphocytes # (Manual) Monocytes # (Manual) PT INR APTT 65.5 H* Fibrinogen Heparin Anti-Xa Level 0.23 L Sodium Potassium Chloride Carbon Dioxide BUN Creatinine Glucose POC Glucose 174 H Calcium AST ALT Total Protein Albumin Urine WBC (Auto) 11/28/16 11/28/16 11/28/16 16:12 21:40 21:48 WBC RBC 3.31 L Hgb 8.8 L Hct 27.0 L MCV 82 L MCH 27 L MCHC RDW 16.8 H Plt Count Lymph % (Auto) 12.9 L [place] % (Auto) 7.7 H Lymph # 0.8 L Seg Neutrophils % 78.5 H Seg Neuts % (Manual) Lymphocytes % (Manual) Monocytes % (Manual) Seg Neutrophils # Man Lymphocytes # (Manual) Monocytes # (Manual) PT INR APTT Fibrinogen Heparin Anti-Xa Level Sodium Potassium Chloride Carbon Dioxide BUN Creatinine Glucose POC Glucose 144 H 153 H Calcium AST ALT Total Protein Albumin Urine WBC (Auto) 11/28/16 11/28/16 11/29/16 22:07 23:36 06:00 WBC RBC 3.18 L Hgb 8.6 L Hct 26.3 L MCV 83 L MCH 27 L MCHC RDW 16.6 H Plt Count Lymph % (Auto) [place] % (Auto) 8.5 H Lymph # 0.9 L Seg Neutrophils % 73.5 H Seg Neuts % (Manual) Lymphocytes % (Manual) Monocytes % (Manual) Seg Neutrophils # Man Lymphocytes # (Manual) Monocytes # (Manual) PT INR APTT Fibrinogen Heparin Anti-Xa Level < 0.10 L Sodium Potassium Chloride Carbon Dioxide BUN Creatinine Glucose POC Glucose 158 H Calcium AST ALT Total Protein Albumin Urine WBC (Auto) 11/29/16 11/29/16 11/29/16 06:00 08:17 08:24 WBC RBC Hgb Hct MCV MCH MCHC RDW Plt Count Lymph % (Auto) [place] % (Auto) Lymph # Seg Neutrophils % Seg Neuts % (Manual) Lymphocytes % (Manual) Monocytes % (Manual) Seg Neutrophils # Man Lymphocytes # (Manual) Monocytes # (Manual) PT INR APTT Fibrinogen Heparin Anti-Xa Level < 0.10 L Sodium Potassium 3.0 L Chloride 107.3 H Carbon Dioxide 19 L BUN Creatinine 0.3 L Glucose 116 H POC Glucose 115 H Calcium 8.2 L AST ALT Total Protein Albumin Urine WBC (Auto) 11/29/16 11/29/16 11/29/16 11:26 15:22 21:33 WBC RBC Hgb Hct MCV MCH MCHC RDW Plt Count Lymph % (Auto) [place] % (Auto) Lymph # Seg Neutrophils % Seg Neuts % (Manual) Lymphocytes % (Manual) Monocytes % (Manual) Seg Neutrophils # Man Lymphocytes # (Manual) Monocytes # (Manual) PT INR APTT Fibrinogen Heparin Anti-Xa Level Sodium Potassium Chloride Carbon Dioxide BUN Creatinine Glucose POC Glucose 172 H 167 H 152 H Calcium AST ALT Total Protein Albumin Urine WBC (Auto) 11/30/16 11/30/16 11/30/16 01:30 04:18 04:18 WBC RBC 3.28 L Hgb 8.8 L Hct 27.3 L MCV 83 L MCH 27 L MCHC RDW 16.9 H Plt Count Lymph % (Auto) [place] % (Auto) 10.2 H Lymph # 0.9 L Seg Neutrophils % 73.3 H Seg Neuts % (Manual) Lymphocytes % (Manual) Monocytes % (Manual) Seg Neutrophils # Man Lymphocytes # (Manual) Monocytes # (Manual) PT INR APTT Fibrinogen Heparin Anti-Xa Level < 0.10 L Sodium Potassium Chloride Carbon Dioxide 19 L BUN 8 L Creatinine 0.3 L Glucose 132 H POC Glucose Calcium 7.9 L AST ALT Total Protein Albumin Urine WBC (Auto) 11/30/16 11/30/16 11/30/16 04:18 07:32 09:27 WBC RBC Hgb Hct MCV MCH MCHC RDW Plt Count Lymph % (Auto) [place] % (Auto) Lymph # Seg Neutrophils % Seg Neuts % (Manual) Lymphocytes % (Manual) Monocytes % (Manual) Seg Neutrophils # Man Lymphocytes # (Manual) Monocytes # (Manual) PT INR APTT 50.1 H Fibrinogen Heparin Anti-Xa Level Sodium Potassium Chloride Carbon Dioxide BUN Creatinine Glucose POC Glucose 125 H Calcium AST 287 H ALT 841 H Total Protein 6.0 L Albumin 2.7 L Urine WBC (Auto) 11/30/16 11/30/16 11/30/16 11:27 16:49 17:15 WBC RBC Hgb Hct MCV MCH MCHC RDW Plt Count Lymph % (Auto) [place] % (Auto) Lymph # Seg Neutrophils % Seg Neuts % (Manual) Lymphocytes % (Manual) Monocytes % (Manual) Seg Neutrophils # Man Lymphocytes # (Manual) Monocytes # (Manual) PT 23.9 H INR 2.13 H APTT 55.4 H Fibrinogen Heparin Anti-Xa Level Sodium Potassium Chloride Carbon Dioxide BUN Creatinine Glucose POC Glucose 161 H 140 H Calcium AST ALT Total Protein Albumin Urine WBC (Auto) 11/30/16 11/30/16 11/30/16 20:48 23:00 Unknown WBC RBC Hgb Hct MCV MCH MCHC RDW Plt Count Lymph % (Auto) [place] % (Auto) Lymph # Seg Neutrophils % Seg Neuts % (Manual) Lymphocytes % (Manual) Monocytes % (Manual) Seg Neutrophils # Man Lymphocytes # (Manual) Monocytes # (Manual) PT INR APTT 151.3 H* Fibrinogen Heparin Anti-Xa Level 0.14 L Sodium Potassium Chloride Carbon Dioxide BUN Creatinine Glucose POC Glucose 157 H Calcium AST ALT Total Protein Albumin Urine WBC (Auto) 11/30/16 12/01/16 12/01/16 Unknown 04:00 07:16 WBC RBC 3.45 L Hgb 9.1 L Hct 28.4 L MCV 82 L MCH 26 L MCHC RDW 17.2 H Plt Count Lymph % (Auto) [place] % (Auto) 10.8 H Lymph # 0.9 L Seg Neutrophils % Seg Neuts % (Manual) Lymphocytes % (Manual) Monocytes % (Manual) Seg Neutrophils # Man Lymphocytes # (Manual) Monocytes # (Manual) PT INR APTT 70.3 H* Fibrinogen Heparin Anti-Xa Level Sodium Potassium Chloride Carbon Dioxide BUN Creatinine Glucose POC Glucose Calcium AST ALT Total Protein Albumin Urine WBC (Auto) 19.0 H 12/01/16 12/01/16 12/01/16 10:30 18:26 22:33 WBC RBC Hgb Hct MCV MCH MCHC RDW Plt Count Lymph % (Auto) [place] % (Auto) Lymph # Seg Neutrophils % Seg Neuts % (Manual) Lymphocytes % (Manual) Monocytes % (Manual) Seg Neutrophils # Man Lymphocytes # (Manual) Monocytes # (Manual) PT INR APTT 52.8 H Fibrinogen Heparin Anti-Xa Level Sodium Potassium Chloride Carbon Dioxide BUN Creatinine Glucose POC Glucose 176 H 164 H Calcium AST ALT Total Protein Albumin Urine WBC (Auto) 12/02/16 12/02/16 12/02/16 06:48 08:21 13:24 WBC RBC Hgb Hct MCV MCH MCHC RDW Plt Count Lymph % (Auto) [place] % (Auto) Lymph # Seg Neutrophils % Seg Neuts % (Manual) Lymphocytes % (Manual) Monocytes % (Manual) Seg Neutrophils # Man Lymphocytes # (Manual) Monocytes # (Manual) PT INR APTT 52.1 H Fibrinogen Heparin Anti-Xa Level Sodium Potassium Chloride Carbon Dioxide BUN Creatinine Glucose POC Glucose 126 H 123 H Calcium AST ALT Total Protein Albumin Urine WBC (Auto) 12/02/16 12/02/16 12/02/16 14:58 17:09 21:30 WBC RBC Hgb Hct MCV MCH MCHC RDW Plt Count Lymph % (Auto) [place] % (Auto) Lymph # Seg Neutrophils % Seg Neuts % (Manual) Lymphocytes % (Manual) Monocytes % (Manual) Seg Neutrophils # Man Lymphocytes # (Manual) Monocytes # (Manual) PT INR APTT 69.4 H* Fibrinogen Heparin Anti-Xa Level Sodium Potassium Chloride Carbon Dioxide BUN Creatinine Glucose POC Glucose 149 H 145 H Calcium AST ALT Total Protein Albumin Urine WBC (Auto) 12/02/16 12/03/16 12/03/16 22:00 05:00 05:00 WBC RBC Hgb 10.1 L Hct 31.0 L MCV MCH MCHC RDW Plt Count Lymph % (Auto) [place] % (Auto) Lymph # Seg Neutrophils % Seg Neuts % (Manual) Lymphocytes % (Manual) Monocytes % (Manual) Seg Neutrophils # Man Lymphocytes # (Manual) Monocytes # (Manual) PT INR APTT 54.6 H Fibrinogen Heparin Anti-Xa Level Sodium Potassium 2.8 L* D Chloride Carbon Dioxide BUN 4 L Creatinine 0.2 L Glucose 107 H POC Glucose Calcium AST ALT 142 H Total Protein 5.7 L Albumin 2.6 L Urine WBC (Auto) 12/03/16 12/03/16 12/03/16 05:00 08:24 12:45 WBC RBC Hgb Hct MCV MCH MCHC RDW Plt Count Lymph % (Auto) [place] % (Auto) Lymph # Seg Neutrophils % Seg Neuts % (Manual) Lymphocytes % (Manual) Monocytes % (Manual) Seg Neutrophils # Man Lymphocytes # (Manual) Monocytes # (Manual) PT INR APTT 117.3 H* Fibrinogen Heparin Anti-Xa Level Sodium Potassium Chloride Carbon Dioxide BUN Creatinine Glucose POC Glucose 111 H 148 H Calcium AST ALT Total Protein Albumin Urine WBC (Auto) 12/03/16 12/03/16 12/03/16 13:56 16:49 19:34 WBC RBC Hgb Hct MCV MCH MCHC RDW Plt Count Lymph % (Auto) [place] % (Auto) Lymph # Seg Neutrophils % Seg Neuts % (Manual) Lymphocytes % (Manual) Monocytes % (Manual) Seg Neutrophils # Man Lymphocytes # (Manual) Monocytes # (Manual) PT INR APTT 61.5 H* 174.7 H* Fibrinogen Heparin Anti-Xa Level Sodium Potassium Chloride Carbon Dioxide BUN Creatinine Glucose POC Glucose 146 H Calcium AST ALT Total Protein Albumin Urine WBC (Auto) 12/03/16 12/04/16 12/04/16 21:48 00:45 05:00 WBC RBC Hgb 10.1 L Hct 31.5 L MCV 82 L MCH 26 L MCHC RDW 17.6 H Plt Count Lymph % (Auto) [place] % (Auto) 10.4 H Lymph # Seg Neutrophils % Seg Neuts % (Manual) Lymphocytes % (Manual) Monocytes % (Manual) Seg Neutrophils # Man Lymphocytes # (Manual) Monocytes # (Manual) PT INR APTT 41.3 H Fibrinogen Heparin Anti-Xa Level Sodium Potassium Chloride Carbon Dioxide BUN Creatinine Glucose POC Glucose 128 H Calcium AST ALT Total Protein Albumin Urine WBC (Auto) 12/04/16 12/04/16 12/04/16 05:00 05:00 Unknown WBC RBC Hgb Hct MCV MCH MCHC RDW Plt Count Lymph % (Auto) [place] % (Auto) Lymph # Seg Neutrophils % Seg Neuts % (Manual) Lymphocytes % (Manual) Monocytes % (Manual) Seg Neutrophils # Man Lymphocytes # (Manual) Monocytes # (Manual) PT INR APTT 51.7 H 62.0 H* Fibrinogen Heparin Anti-Xa Level Sodium Potassium 3.4 L D Chloride 107.2 H Carbon Dioxide BUN 5 L Creatinine 0.2 L Glucose 114 H POC Glucose Calcium AST ALT Total Protein Albumin Urine WBC (Auto)
--- NOTE | 2016-12-04 16:07 | Progress Note ---
Assessment and Plan Assessment and plan: 1. Bilateral pulmonary emboli with saddle emboli with pulmonary hypertension - s /p EKOS, thrombectomy, IVC filter placement; echo 11/2016: EF 45-50%, RA/RV moderately dilated, RVSP 65mmHg; bilateral venous ultrasound negative for dvt 2. Thrombocytopenia -Possible HIT awaiting panel- f.u hematology appreciated; once cleared for elquis 10mg bid for one week and then 5mg bid as per cardiology 3. Diabetes 2- cont insulin sliding scale; 4. Psoas abscess- cotn IV antibiotics 5. Debility - PT eval 6. DVT prophylaxis- argatraban History Interval history: f/u bilateral PE\; psoas abscess Patient seen at the bedside; no complaints; no sob; weakness in Lt LE Hospitalist Physical - Constitutional Vitals: Temp Pulse Resp BP Pulse Ox 98.8 F 96 H 18 126/92 95 12/04/16 15:37 12/04/16 15:37 12/04/16 15:37 12/04/16 15:37 12/04/16 15:37 General appearance: Present: no acute distress, obese (morbid) - EENT Eyes: Present: PERRL, EOM intact. Absent: scleral icterus, conjunctival injection ENT: hearing intact, clear oral mucosa, no oropharyngeal erythema, no poor dentition - Neck Neck: Present: supple, normal ROM. Absent: enlarged thyroid, masses or JVD - Respiratory Respiratory effort: normal Respiratory: negative: diminished, rales, rhonchi, wheezing - Cardiovascular Rhythm: regular Heart Sounds: Present: S1 & S2. Absent: gallop - Extremities Extremities: no ischemia, pulses intact, pulses symmetrical, No edema Peripheral Pulses: within normal limits - Abdominal General gastrointestinal: soft, non-tender, non-distended - Integumentary Integumentary: Present: clear - Psychiatric Psychiatric: appropriate mood/affect, intact judgment & insight - Neurologic Neurologic: CNII-XII intact, moves all extremities Results - Labs CBC & Chem 7: 12/04/16 05:00 12/04/16 05:00 Labs: Laboratory Last Values WBC 5.3 K/mm3 (4.5-11.0) 12/04/16 05:00 RBC 3.83 M/mm3 (3.65-5.03) 12/04/16 05:00 Hgb 10.1 gm/dl (11.8-15.2) L 12/04/16 05:00 Hct 31.5 % (35.5-45.6) L 12/04/16 05:00 MCV 82 fl (84-94) L 12/04/16 05:00 MCH 26 pg (28-32) L 12/04/16 05:00 MCHC 32 % (32-34) 12/04/16 05:00 RDW 17.6 % (13.2-15.2) H 12/04/16 05:00 Plt Count 309 K/mm3 (140-440) 12/04/16 05:00 Lymph % (Auto) 31.3 % (13.4-35.0) 12/04/16 05:00 [place] % (Auto) 10.4 % (0.0-7.3) H 12/04/16 05:00 Eos % (Auto) 4.0 % (0.0-4.3) 12/04/16 05:00 Baso % (Auto) 0.8 % (0.0-1.8) 12/04/16 05:00 Lymph # 1.7 K/mm3 (1.2-5.4) 12/04/16 05:00 [place] # 0.5 K/mm3 (0.0-0.8) 12/04/16 05:00 Eos # 0.2 K/mm3 (0.0-0.4) 12/04/16 05:00 Baso # 0.0 K/mm3 (0.0-0.1) 12/04/16 05:00 Add Manual Diff Complete 11/27/16 17:00 Total Counted 100 11/27/16 17:00 Seg Neutrophils % 53.5 % (40.0-70.0) 12/04/16 05:00 Seg Neuts % (Manual) 80.0 % (40.0-70.0) H 11/27/16 17:00 Band Neutrophils % 0 % 11/27/16 17:00 Lymphocytes % (Manual) 9.0 % (13.4-35.0) L 11/27/16 17:00 Reactive Lymphs % (Man) 0 % 11/27/16 17:00 Monocytes % (Manual) 9.0 % (0.0-7.3) H 11/27/16 17:00 Eosinophils % (Manual) 0 % (0.0-4.3) 11/27/16 17:00 Basophils % (Manual) 0 % (0.0-1.8) 11/27/16 17:00 Metamyelocytes % 2.0 % 11/27/16 17:00 Myelocytes % 0 % 11/27/16 17:00 Promyelocytes % 0 % 11/27/16 17:00 Blast Cells % 0 % 11/27/16 17:00 Nucleated RBC % Not Reportable 11/27/16 17:00 Seg Neutrophils # 2.8 K/mm3 (1.8-7.7) 12/04/16 05:00 Seg Neutrophils # Man 7.7 K/mm3 (1.8-7.7) 11/27/16 17:00 Band Neutrophils # 0.0 K/mm3 11/27/16 17:00 Lymphocytes # (Manual) 0.9 K/mm3 (1.2-5.4) L 11/27/16 17:00 Abs React Lymphs (Man) 0.0 K/mm3 11/27/16 17:00 Monocytes # (Manual) 0.9 K/mm3 (0.0-0.8) H 11/27/16 17:00 Eosinophils # (Manual) 0.0 K/mm3 (0.0-0.4) 11/27/16 17:00 Basophils # (Manual) 0.0 K/mm3 (0.0-0.1) 11/27/16 17:00 Metamyelocytes # 0.2 K/mm3 11/27/16 17:00 Myelocytes # 0.0 K/mm3 11/27/16 17:00 Promyelocytes # 0.0 K/mm3 11/27/16 17:00 Blast Cells # 0.0 K/mm3 11/27/16 17:00 WBC Morphology Not Reportable 11/27/16 17:00 Hypersegmented Neuts Not Reportable 11/27/16 17:00 Hyposegmented Neuts Not Reportable 11/27/16 17:00 Hypogranular Neuts Not Reportable 11/27/16 17:00 Smudge Cells Not Reportable 11/27/16 17:00 Toxic Granulation Not Reportable 11/27/16 17:00 Toxic Vacuolation Not Reportable 11/27/16 17:00 Dohle Bodies Not Reportable 11/27/16 17:00 Pelger-Huet Anomaly Not Reportable 11/27/16 17:00 Mati Rods Not Reportable 11/27/16 17:00 Platelet Estimate Consistent w auto 11/27/16 17:00 Clumped Platelets Not Reportable 11/27/16 17:00 Plt Clumps, EDTA Not Reportable 11/27/16 17:00 Large Platelets Not Reportable 11/27/16 17:00 Giant Platelets Not Reportable 11/27/16 17:00 Platelet Satelliting Not Reportable 11/27/16 17:00 Plt Morphology Comment Not Reportable 11/27/16 17:00 RBC Morphology Not Reportable 11/27/16 17:00 Dimorphic RBCs Not Reportable 11/27/16 17:00 Polychromasia Not Reportable 11/27/16 17:00 Hypochromasia Not Reportable 11/27/16 17:00 Poikilocytosis Not Reportable 11/27/16 17:00 Anisocytosis 1+ 11/27/16 17:00 Microcytosis Not Reportable 11/27/16 17:00 Macrocytosis Not Reportable 11/27/16 17:00 Spherocytes Not Reportable 11/27/16 17:00 Pappenheimer Bodies Not Reportable 11/27/16 17:00 Sickle Cells Not Reportable 11/27/16 17:00 Target Cells Not Reportable 11/27/16 17:00 Tear Drop Cells Not Reportable 11/27/16 17:00 Ovalocytes Not Reportable 11/27/16 17:00 Helmet Cells Not Reportable 11/27/16 17:00 Serrato-[place] Bodies Not Reportable 11/27/16 17:00 [place] Rings Not Reportable 11/27/16 17:00 William Cells Not Reportable 11/27/16 17:00 Bite Cells Not Reportable 11/27/16 17:00 Crenated Cell Not Reportable 11/27/16 17:00 Elliptocytes Not Reportable 11/27/16 17:00 Acanthocytes (Spur) Not Reportable 11/27/16 17:00 Rouleaux Not Reportable 11/27/16 17:00 Hemoglobin C Crystals Not Reportable 11/27/16 17:00 Schistocytes Not Reportable 11/27/16 17:00 Malaria parasites Not Reportable 11/27/16 17:00 Michael Bodies Not Reportable 11/27/16 17:00 Hem Pathologist Commnt No 11/27/16 17:00 PT 23.9 Sec. (12.2-14.9) H 11/30/16 17:15 INR 2.13 (0.87-1.13) H 11/30/16 17:15 APTT 62.0 Sec. (24.2-36.6) H* 12/04/16 Unknown Fibrinogen 474 mg/dl (211-480) 11/27/16 23:00 Heparin Anti-Xa Level 0.14 U.I./ml (0.3-0.7) L 11/30/16 Unknown Sodium 144 mmol/L (137-145) 12/04/16 05:00 Potassium 3.4 mmol/L (3.6-5.0) L D 12/04/16 05:00 Chloride 107.2 mmol/L (98-107) H 12/04/16 05:00 Carbon Dioxide 25 mmol/L (22-30) 12/04/16 05:00 Anion Gap 15 mmol/L 12/04/16 05:00 BUN 5 mg/dL (9-20) L 12/04/16 05:00 Creatinine 0.2 mg/dL (0.8-1.5) L 12/04/16 05:00 Estimated GFR > 60 ml/min 12/04/16 05:00 BUN/Creatinine Ratio 25.00 % 12/04/16 05:00 Glucose 114 mg/dL (75-100) H 12/04/16 05:00 POC Glucose 128 (70-105) H 12/03/16 21:48 Calcium 8.6 mg/dL (8.4-10.2) 12/04/16 05:00 Total Bilirubin 0.3 mg/dL (0.1-1.2) 12/03/16 05:00 Direct Bilirubin 0.2 mg/dL (0-0.2) 11/30/16 04:18 Indirect Bilirubin 0.5 mg/dL 11/30/16 04:18 AST 18 units/L (5-40) 12/03/16 05:00 ALT 142 units/L (7-56) H 12/03/16 05:00 Alkaline Phosphatase 94 units/L (35-129) 12/03/16 05:00 Total Protein 5.7 g/dL (6.3-8.2) L 12/03/16 05:00 Albumin 2.6 g/dL (3.9-5) L 12/03/16 05:00 Albumin/Globulin Ratio 0.8 % 12/03/16 05:00 Urine Color Yellow (Yellow) 11/30/16 Unknown Urine Turbidity Slightly-cloudy (Clear) 11/30/16 Unknown Urine pH 5.0 (5.0-7.0) 11/30/16 Unknown Ur Specific [place] 1.020 (1.003-1.030) 11/30/16 Unknown Urine Protein 30 mg/dl mg/dL (Negative) 11/30/16 Unknown Urine Glucose (UA) Neg mg/dL (Negative) 11/30/16 Unknown Urine Ketones Neg mg/dL (Negative) 11/30/16 Unknown Urine Blood Sm (Negative) 11/30/16 Unknown Urine Nitrite Neg (Negative) 11/30/16 Unknown Urine Bilirubin Neg (Negative) 11/30/16 Unknown Urine Urobilinogen 2.0 mg/dL (<2.0) 11/30/16 Unknown Ur Leukocyte Esterase Sm (Negative) 11/30/16 Unknown Urine WBC (Auto) 19.0 /HPF (0.0-6.0) H 11/30/16 Unknown Urine RBC (Auto) 5.0 /HPF (0.0-6.0) 11/30/16 Unknown U Epithel Cells (Auto) < 1.0 /HPF (0-13.0) 11/30/16 Unknown Uric Acid Crystals 1+ 11/30/16 Unknown Urine Mucus 1+ /HPF 11/30/16 Unknown Blood Type O POSITIVE 11/27/16 02:58 Antibody Screen Negative 11/27/16 02:58
[2016-12-04] MEDS: NORCO 5/325 PO PRN (16:45)
[2016-12-04 16:52] LABS: Heparin-Induced Platelet Antib Negative (Negative); Unfractionated Heparin Negative (Negative)
[2016-12-04] MEDS: MORPHINE IV PRN (20:56)
[2016-12-05] MEDS: MORPHINE IV PRN (02:25)
[2016-12-05] MEDS: ATIVAN IV PRN ×2 (05:20→11:06)
[2016-12-05] MEDS: ceFAZolin 2 GM in NACL 0.9% 100 ML IV SCH ×3 (05:48→21:25)
[2016-12-05] MEDS: ARGATROBAN 250 MG in NACL 0.9% 250ML 247.5 ML IV SCH (06:13)
[2016-12-05 07:40] LABS: Hematocrit 30.5 % (35.5-45.6); Hemoglobin 9.8 gm/dl (11.8-15.2); Mean Corpuscular HGB Conc 32 % (32-34); Mean Corpuscular Hemoglobin 26 pg (28-32); Mean Corpuscular Volume 82 fl (84-94); Platelet Count 318 K/mm3 (140-440); Red Blood Count 3.72 M/mm3 (3.65-5.03); Red Cell Distribution Width 17.2 % (13.2-15.2); White Blood Count 5.3 K/mm3 (4.5-11.0)
[2016-12-05] MEDS: NOVOLOG SUB-Q SCH ×4 (07:45→22:32)
[2016-12-05 07:58] LABS: Anion Gap 16 mmol/L; Blood Urea Nitrogen 5 mg/dL (9-20); Calcium 8.2 mg/dL (8.4-10.2); Carbon Dioxide 25 mmol/L (22-30); Chloride 102.7 mmol/L (98-107); Glucose 140 mg/dL (75-100); Potassium 3.3 mmol/L (3.6-5.0); Sodium 140 mmol/L (137-145)
--- NOTE | 2016-12-05 08:53 | Hem/Onc Progress Note ---
Assessment and Plan Since heparin-induced thrombus cytopenia assay is negative, we will stop the argatroban and switch him to eliquis. Per guidelines eliquis should start within 2 hours of stopping argatroban. Continue to monitor. Subjective Date of service: 12/05/16 Interval history: Patient feels fair. Anxious about the future. Heparin-induced thrombo cytopenia assay was negative for antibodies. Denies any active bleeding. Objective - Constitutional Vitals: Last Vital Signs Temp 98.6 F 12/05/16 07:24 Pulse 87 12/05/16 07:24 Resp 18 12/05/16 07:24 BP 132/81 12/05/16 07:24 Pulse Ox 93 12/05/16 07:24 General appearance: obese Performance status: 4-completely disabled - Neck Neck: supple - Respiratory Respiratory effort: Positive: normal Respiratory: bilateral: diminished - Cardiovascular Rhythm: regular Extremities: abnormal (boots) - Gastrointestinal General gastrointestinal: Present: soft - Labs Lab Results: Laboratory Results - last 24 hr 11/30/16 12/04/16 12/04/16 Unknown 08:22 12:21 WBC RBC Hgb Hct MCV MCH MCHC RDW Plt Count APTT Heparin Anti-Xa, Unfract Negative Sodium Potassium Chloride Carbon Dioxide Anion Gap BUN Creatinine Estimated GFR BUN/Creatinine Ratio Glucose POC Glucose 105 128 H Calcium Heparin-induced Plt Ab Negative UF Heparin High Dose 0 MIKA UFH Low Dose 0.1 1 MIKA UFH Low Dose 0.5 0 12/04/16 12/04/16 12/04/16 15:32 16:00 19:53 WBC RBC Hgb Hct MCV MCH MCHC RDW Plt Count APTT 81.1 H* Heparin Anti-Xa, Unfract Sodium Potassium Chloride Carbon Dioxide Anion Gap BUN Creatinine Estimated GFR BUN/Creatinine Ratio Glucose POC Glucose 115 H 159 H Calcium Heparin-induced Plt Ab UF Heparin High Dose MIKA UFH Low Dose 0.1 MIKA UFH Low Dose 0.5 12/04/16 12/05/16 12/05/16 Unknown 06:48 06:48 WBC 5.3 RBC 3.72 Hgb 9.8 L Hct 30.5 L MCV 82 L MCH 26 L MCHC 32 RDW 17.2 H Plt Count 318 APTT 62.0 H* Heparin Anti-Xa, Unfract Sodium 140 Potassium 3.3 L Chloride 102.7 Carbon Dioxide 25 Anion Gap 16 BUN 5 L Creatinine 0.2 L Estimated GFR > 60 BUN/Creatinine Ratio 25.00 Glucose 140 H POC Glucose Calcium 8.2 L Heparin-induced Plt Ab UF Heparin High Dose MIKA UFH Low Dose 0.1 MIKA UFH Low Dose 0.5
[2016-12-05] MEDS: DOLOPHINE PO SCH (09:11)
[2016-12-05] MEDS: NYSTOP TP SCH ×2 (09:12→21:25)
[2016-12-05] MEDS: PEPCID PO SCH ×2 (09:12→21:25)
[2016-12-05] MEDS: ELIQUIS PO SCH ×2 (10:14→21:19)
--- NOTE | 2016-12-05 12:12 | Progress Note ---
Addendum entered and electronically signed by MAUREEN WESLEY MD 12/05/16 13:07: I have seen and examined the patient and agree with the documentation below. Cardiac status appears stable. Will continue anticoagulation. We will see PRN. Original Note: Assessment and Plan Stable cardiac status. Continue current management. - Patient Problems (1) Saddle embolus Current Visit: Yes Status: Acute (2) Pulmonary hypertension Current Visit: Yes Status: Acute (3) Diabetes Current Visit: Yes Status: Chronic (4) Psoas abscess Current Visit: Yes Status: Chronic Subjective Date of service: 12/05/16 Principal diagnosis: saddle emboli with hypotension, status post thrombolysis Interval history: The patient is resting in bed. No new complaints. Sinus rhythm on the monitor. Objective Last Vital Signs Temp 98.6 F 12/05/16 07:24 Pulse 96 H 12/05/16 10:07 Resp 18 12/05/16 07:24 BP 132/81 12/05/16 07:24 Pulse Ox 93 12/05/16 07:24 - Physical Examination General: No Apparent Distress HEENT: Positive: Normocephaly, Mucus Membranes Moist Neck: Positive: neck supple, trachea midline Cardiac: Positive: Reg Rate and Rhythm, S1/S2 Lungs: Positive: Decreased Breath Sounds Neuro: Positive: Grossly Intact Abdomen: Positive: Soft, Active Bowel Sounds. Negative: Tender Skin: Positive: Clear. Negative: Rash Extremities: Present: normal. Absent: edema - Labs and Meds Coagulation 12/04/16 Range/Units 16:00 APTT 81.1 H* (24.2-36.6) Sec. CBC 12/05/16 Range/Units 06:48 WBC 5.3 (4.5-11.0) K/mm3 RBC 3.72 (3.65-5.03) M/mm3 Hgb 9.8 L (11.8-15.2) gm/dl Hct 30.5 L (35.5-45.6) % Plt Count 318 (140-440) K/mm3 Comprehensive Metabolic Panel 12/05/16 Range/Units 06:48 Sodium 140 (137-145) mmol/L Potassium 3.3 L (3.6-5.0) mmol/L Chloride 102.7 (98-107) mmol/L Carbon Dioxide 25 (22-30) mmol/L BUN 5 L (9-20) mg/dL Creatinine 0.2 L (0.8-1.5) mg/dL Glucose 140 H (75-100) mg/dL Calcium 8.2 L (8.4-10.2) mg/dL - Imaging and Cardiology EKG: image reviewed (st, 115, read by me) Echo: report reviewed (11/2016: EF 45-50%, RA/RV moderately dilated, RVSP 65mmHg ) - Telemetry EKG Rhythm: Sinus Rhythm - EKG Sinus rhythms and dysrhythmias: sinus tachycardia Repolarization changes or abnormalities: nonspecific abnormality, ST segment, and/or T wave
--- NOTE | 2016-12-05 13:00 | Progress Note ---
Assessment and Plan Assessment and plan: 1. Bilateral pulmonary emboli with saddle emboli with pulmonary hypertension - s /p EKOS, thrombectomy, IVC filter placement; echo 11/2016: EF 45-50%, RA/RV moderately dilated, RVSP 65mmHg; bilateral venous ultrasound negative for dvt; started on eliquis as HIT antibody negative; hematology f/u appreciated 2. Thrombocytopenia -resolved; HIT ab negative 3. Diabetes 2- cont insulin sliding scale; 4. Psoas abscess- cotn IV antibiotics 5. Debility - PT eval 6. DVT prophylaxis- now on eliquis; argatroban stopped today as HIT ab negative Will d/c LTACH if accepted- aawaiting insurance clearance History Interval history: f/u bilateral PE\; psoas abscess Patient seen at the bedside; has spasms in the abdomen; no diarhea this morning ; Hospitalist Physical - Constitutional Vitals: Temp Pulse Resp BP Pulse Ox 98.4 F 94 H 20 120/78 93 12/05/16 12:09 12/05/16 12:09 12/05/16 12:09 12/05/16 12:09 12/05/16 12:09 General appearance: Present: no acute distress, obese (morbid) - EENT Eyes: Present: PERRL, EOM intact. Absent: scleral icterus, conjunctival injection ENT: hearing intact, clear oral mucosa, no oropharyngeal erythema, no poor dentition - Neck Neck: Present: supple, normal ROM. Absent: enlarged thyroid, masses or JVD - Respiratory Respiratory effort: normal Respiratory: negative: diminished, rales, rhonchi, wheezing - Cardiovascular Rhythm: regular Heart Sounds: Present: S1 & S2. Absent: gallop - Extremities Extremities: no ischemia, pulses intact, pulses symmetrical, No edema Peripheral Pulses: within normal limits - Abdominal General gastrointestinal: soft, non-tender, non-distended - Integumentary Integumentary: Present: clear - Psychiatric Psychiatric: appropriate mood/affect - Neurologic Neurologic: CNII-XII intact, other (weakness in LE bilaterally grade 2 -3 power) Results - Labs CBC & Chem 7: 12/05/16 06:48 12/05/16 06:48 Labs: Laboratory Last Values WBC 5.3 K/mm3 (4.5-11.0) 12/05/16 06:48 RBC 3.72 M/mm3 (3.65-5.03) 12/05/16 06:48 Hgb 9.8 gm/dl (11.8-15.2) L 12/05/16 06:48 Hct 30.5 % (35.5-45.6) L 12/05/16 06:48 MCV 82 fl (84-94) L 12/05/16 06:48 MCH 26 pg (28-32) L 12/05/16 06:48 MCHC 32 % (32-34) 12/05/16 06:48 RDW 17.2 % (13.2-15.2) H 12/05/16 06:48 Plt Count 318 K/mm3 (140-440) 12/05/16 06:48 Lymph % (Auto) 31.3 % (13.4-35.0) 12/04/16 05:00 [place] % (Auto) 10.4 % (0.0-7.3) H 12/04/16 05:00 Eos % (Auto) 4.0 % (0.0-4.3) 12/04/16 05:00 Baso % (Auto) 0.8 % (0.0-1.8) 12/04/16 05:00 Lymph # 1.7 K/mm3 (1.2-5.4) 12/04/16 05:00 [place] # 0.5 K/mm3 (0.0-0.8) 12/04/16 05:00 Eos # 0.2 K/mm3 (0.0-0.4) 12/04/16 05:00 Baso # 0.0 K/mm3 (0.0-0.1) 12/04/16 05:00 Add Manual Diff Complete 11/27/16 17:00 Total Counted 100 11/27/16 17:00 Seg Neutrophils % 53.5 % (40.0-70.0) 12/04/16 05:00 Seg Neuts % (Manual) 80.0 % (40.0-70.0) H 11/27/16 17:00 Band Neutrophils % 0 % 11/27/16 17:00 Lymphocytes % (Manual) 9.0 % (13.4-35.0) L 11/27/16 17:00 Reactive Lymphs % (Man) 0 % 11/27/16 17:00 Monocytes % (Manual) 9.0 % (0.0-7.3) H 11/27/16 17:00 Eosinophils % (Manual) 0 % (0.0-4.3) 11/27/16 17:00 Basophils % (Manual) 0 % (0.0-1.8) 11/27/16 17:00 Metamyelocytes % 2.0 % 11/27/16 17:00 Myelocytes % 0 % 11/27/16 17:00 Promyelocytes % 0 % 11/27/16 17:00 Blast Cells % 0 % 11/27/16 17:00 Nucleated RBC % Not Reportable 11/27/16 17:00 Seg Neutrophils # 2.8 K/mm3 (1.8-7.7) 12/04/16 05:00 Seg Neutrophils # Man 7.7 K/mm3 (1.8-7.7) 11/27/16 17:00 Band Neutrophils # 0.0 K/mm3 11/27/16 17:00 Lymphocytes # (Manual) 0.9 K/mm3 (1.2-5.4) L 11/27/16 17:00 Abs React Lymphs (Man) 0.0 K/mm3 11/27/16 17:00 Monocytes # (Manual) 0.9 K/mm3 (0.0-0.8) H 11/27/16 17:00 Eosinophils # (Manual) 0.0 K/mm3 (0.0-0.4) 11/27/16 17:00 Basophils # (Manual) 0.0 K/mm3 (0.0-0.1) 11/27/16 17:00 Metamyelocytes # 0.2 K/mm3 11/27/16 17:00 Myelocytes # 0.0 K/mm3 11/27/16 17:00 Promyelocytes # 0.0 K/mm3 11/27/16 17:00 Blast Cells # 0.0 K/mm3 11/27/16 17:00 WBC Morphology Not Reportable 11/27/16 17:00 Hypersegmented Neuts Not Reportable 11/27/16 17:00 Hyposegmented Neuts Not Reportable 11/27/16 17:00 Hypogranular Neuts Not Reportable 11/27/16 17:00 Smudge Cells Not Reportable 11/27/16 17:00 Toxic Granulation Not Reportable 11/27/16 17:00 Toxic Vacuolation Not Reportable 11/27/16 17:00 Dohle Bodies Not Reportable 11/27/16 17:00 Pelger-Huet Anomaly Not Reportable 11/27/16 17:00 Mati Rods Not Reportable 11/27/16 17:00 Platelet Estimate Consistent w auto 11/27/16 17:00 Clumped Platelets Not Reportable 11/27/16 17:00 Plt Clumps, EDTA Not Reportable 11/27/16 17:00 Large Platelets Not Reportable 11/27/16 17:00 Giant Platelets Not Reportable 11/27/16 17:00 Platelet Satelliting Not Reportable 11/27/16 17:00 Plt Morphology Comment Not Reportable 11/27/16 17:00 RBC Morphology Not Reportable 11/27/16 17:00 Dimorphic RBCs Not Reportable 11/27/16 17:00 Polychromasia Not Reportable 11/27/16 17:00 Hypochromasia Not Reportable 11/27/16 17:00 Poikilocytosis Not Reportable 11/27/16 17:00 Anisocytosis 1+ 11/27/16 17:00 Microcytosis Not Reportable 11/27/16 17:00 Macrocytosis Not Reportable 11/27/16 17:00 Spherocytes Not Reportable 11/27/16 17:00 Pappenheimer Bodies Not Reportable 11/27/16 17:00 Sickle Cells Not Reportable 11/27/16 17:00 Target Cells Not Reportable 11/27/16 17:00 Tear Drop Cells Not Reportable 11/27/16 17:00 Ovalocytes Not Reportable 11/27/16 17:00 Helmet Cells Not Reportable 11/27/16 17:00 [place] Bodies Not Reportable 11/27/16 17:00 [place] Rings Not Reportable 11/27/16 17:00 Jal Cells Not Reportable 11/27/16 17:00 Bite Cells Not Reportable 11/27/16 17:00 Crenated Cell Not Reportable 11/27/16 17:00 Elliptocytes Not Reportable 11/27/16 17:00 Acanthocytes (Spur) Not Reportable 11/27/16 17:00 Rouleaux Not Reportable 11/27/16 17:00 Hemoglobin C Crystals Not Reportable 11/27/16 17:00 Schistocytes Not Reportable 11/27/16 17:00 Malaria parasites Not Reportable 11/27/16 17:00 Michael Bodies Not Reportable 11/27/16 17:00 Hem Pathologist Commnt No 11/27/16 17:00 PT 23.9 Sec. (12.2-14.9) H 11/30/16 17:15 INR 2.13 (0.87-1.13) H 11/30/16 17:15 APTT 62.0 Sec. (24.2-36.6) H* 12/04/16 Unknown Fibrinogen 474 mg/dl (211-480) 11/27/16 23:00 Heparin Anti-Xa Level 0.14 U.I./ml (0.3-0.7) L 11/30/16 Unknown Heparin Anti-Xa, Unfract Negative (Negative) 11/30/16 Unknown Sodium 140 mmol/L (137-145) 12/05/16 06:48 Potassium 3.3 mmol/L (3.6-5.0) L 12/05/16 06:48 Chloride 102.7 mmol/L (98-107) 12/05/16 06:48 Carbon Dioxide 25 mmol/L (22-30) 12/05/16 06:48 Anion Gap 16 mmol/L 12/05/16 06:48 BUN 5 mg/dL (9-20) L 12/05/16 06:48 Creatinine 0.2 mg/dL (0.8-1.5) L 12/05/16 06:48 Estimated GFR > 60 ml/min 12/05/16 06:48 BUN/Creatinine Ratio 25.00 % 12/05/16 06:48 Glucose 140 mg/dL (75-100) H 12/05/16 06:48 POC Glucose 138 (70-105) H 12/05/16 12:03 Calcium 8.2 mg/dL (8.4-10.2) L 12/05/16 06:48 Total Bilirubin 0.3 mg/dL (0.1-1.2) 12/03/16 05:00 Direct Bilirubin 0.2 mg/dL (0-0.2) 11/30/16 04:18 Indirect Bilirubin 0.5 mg/dL 11/30/16 04:18 AST 18 units/L (5-40) 12/03/16 05:00 ALT 142 units/L (7-56) H 12/03/16 05:00 Alkaline Phosphatase 94 units/L (35-129) 12/03/16 05:00 Total Protein 5.7 g/dL (6.3-8.2) L 12/03/16 05:00 Albumin 2.6 g/dL (3.9-5) L 12/03/16 05:00 Albumin/Globulin Ratio 0.8 % 12/03/16 05:00 Urine Color Yellow (Yellow) 11/30/16 Unknown Urine Turbidity Slightly-cloudy (Clear) 11/30/16 Unknown Urine pH 5.0 (5.0-7.0) 11/30/16 Unknown Ur Specific [place] 1.020 (1.003-1.030) 11/30/16 Unknown Urine Protein 30 mg/dl mg/dL (Negative) 11/30/16 Unknown Urine Glucose (UA) Neg mg/dL (Negative) 11/30/16 Unknown Urine Ketones Neg mg/dL (Negative) 11/30/16 Unknown Urine Blood Sm (Negative) 11/30/16 Unknown Urine Nitrite Neg (Negative) 11/30/16 Unknown Urine Bilirubin Neg (Negative) 11/30/16 Unknown Urine Urobilinogen 2.0 mg/dL (<2.0) 11/30/16 Unknown Ur Leukocyte Esterase Sm (Negative) 11/30/16 Unknown Urine WBC (Auto) 19.0 /HPF (0.0-6.0) H 11/30/16 Unknown Urine RBC (Auto) 5.0 /HPF (0.0-6.0) 11/30/16 Unknown U Epithel Cells (Auto) < 1.0 /HPF (0-13.0) 11/30/16 Unknown Uric Acid Crystals 1+ 11/30/16 Unknown Urine Mucus 1+ /HPF 11/30/16 Unknown Heparin-induced Plt Ab Negative (Negative) 11/30/16 Unknown UF Heparin High Dose 0 % Release (()) 11/30/16 Unknown MIKA UFH Low Dose 0.1 1 % Release (()) 11/30/16 Unknown MIKA UFH Low Dose 0.5 0 % Release (()) 11/30/16 Unknown Blood Type O POSITIVE 11/27/16 02:58 Antibody Screen Negative 11/27/16 02:58
[2016-12-05] MEDS: NORCO 5/325 PO PRN (15:52)
[2016-12-05] MEDS: PERCOCET 5/325 PO PRN ×2 (18:35→23:22)
[2016-12-05] MEDS: ROXICODONE PO PRN ×2 (18:35→23:24)
[2016-12-05] MEDS: LEVSIN SL SL PRN (18:37)
[2016-12-06] MEDS: ceFAZolin 2 GM in NACL 0.9% 100 ML IV SCH ×3 (05:05→21:49)
[2016-12-06] MEDS: ROXICODONE PO PRN ×4 (05:06→23:16)
[2016-12-06] MEDS: PERCOCET 5/325 PO PRN ×3 (05:07→23:15)
[2016-12-06] MEDS: NOVOLOG SUB-Q SCH ×4 (08:22→23:16)
--- NOTE | 2016-12-06 08:31 | Vascular Lab Report ---
LOWER EXTREMITY VENOUS DUPLEX: REASON FOR EXAM: Massive bilateral pulmonary embolus. COMMENTS ON THE RIGHT: All veins visualized are freely compressible without evidence of internal echogenicity. Flow is spontaneous and phasic throughout. COMMENTS ON THE LEFT: All veins visualized are freely compressible without evidence of internal echogenicity. Flow is spontaneous and phasic throughout. IMPRESSION: No evidence of acute or chronic deep venous thrombosis in either lower extremity.
--- NOTE | 2016-12-06 09:06 | Hem/Onc Progress Note ---
Assessment and Plan Continue eliquis 10 mg twice a day for a week followed by 5 mg twice a day. There does not seem to be any interaction with methadone. Once he's outpatient , I will follow him and do hypercoagulable workup at that time. Subjective Date of service: 12/06/16 Interval history: Patient was switched to eliquis and is tolerating it well. Had questions about interaction with methadone. Otherwise feels well. Does some physical therapy but wants to do more Objective - Constitutional Vitals: Last Vital Signs Temp 97.9 F 12/06/16 07:38 Pulse 78 12/06/16 07:38 Resp 20 12/06/16 07:38 BP 126/78 12/06/16 07:38 Pulse Ox 96 12/06/16 07:38 Pain Intensity (0-10): denies any pain General appearance: no acute distress Performance status: 4-completely disabled - Neck Neck: supple - Respiratory Respiratory effort: Positive: normal Respiratory: bilateral: CTA - Cardiovascular Rhythm: regular - Gastrointestinal General gastrointestinal: Present: soft - Labs Lab Results: Laboratory Results - last 24 hr 12/05/16 12/05/16 12/05/16 07:22 12:03 16:32 POC Glucose 122 H 138 H 145 H 12/05/16 12/06/16 21:41 07:56 POC Glucose 137 H 122 H
[2016-12-06] MEDS: PEPCID PO SCH ×2 (10:14→21:48)
[2016-12-06] MEDS: DOLOPHINE PO SCH (10:14)
[2016-12-06] MEDS: NYSTOP TP SCH ×2 (10:15→21:49)
[2016-12-06] MEDS: ELIQUIS PO SCH ×2 (10:15→21:47)
[2016-12-06] MEDS: LEVSIN SL SL PRN (10:16)
[2016-12-06] MEDS: XANAX PO PRN (12:08)
[2016-12-06] MEDS: NORCO 5/325 PO PRN (13:14)
--- NOTE | 2016-12-06 17:55 | Progress Note ---
Assessment and Plan Assessment and plan: 1. Bilateral pulmonary emboli with saddle emboli with pulmonary hypertension - s /p EKOS, thrombectomy, IVC filter placement; echo 11/2016: EF 45-50%, RA/RV moderately dilated, RVSP 65mmHg; bilateral venous ultrasound negative for dvt; cotn on eliquis as HIT antibody negative; hematology f/u appreciated 2. Diabetes 2- cont insulin sliding scale; 3. Psoas abscess- cotn IV antibiotics 4. Debility - PT eval 5. DVT prophylaxis- cont eliquis as per Cm it is unlikely that he will qualify for LTACH; awaiting SNF placement History Interval history: f/u bilateral PE\; psoas abscess Patient seen at the bedside; no complaints today Hospitalist Physical - Constitutional Vitals: Temp Pulse Resp BP Pulse Ox 98.3 F 82 20 137/77 95 12/06/16 12:10 12/06/16 12:10 12/06/16 12:10 12/06/16 12:10 12/06/16 12:10 General appearance: Present: no acute distress, obese (morbid) - EENT Eyes: Present: PERRL, EOM intact. Absent: scleral icterus, conjunctival injection ENT: hearing intact, clear oral mucosa, no oropharyngeal erythema, no poor dentition - Neck Neck: Present: supple, normal ROM. Absent: enlarged thyroid, masses or JVD - Respiratory Respiratory effort: normal Respiratory: negative: diminished, rales, rhonchi, wheezing - Cardiovascular Rhythm: regular Heart Sounds: Present: S1 & S2. Absent: gallop - Extremities Extremities: no ischemia, pulses intact, pulses symmetrical, No edema Peripheral Pulses: within normal limits - Abdominal General gastrointestinal: soft, non-tender, non-distended, normal bowel sounds - Integumentary Integumentary: Present: clear - Psychiatric Psychiatric: appropriate mood/affect, intact judgment & insight, cooperative - Neurologic Neurologic: CNII-XII intact, moves all extremities Results - Labs CBC & Chem 7: 12/05/16 06:48 12/05/16 06:48 Labs: Laboratory Last Values WBC 5.3 K/mm3 (4.5-11.0) 12/05/16 06:48 RBC 3.72 M/mm3 (3.65-5.03) 12/05/16 06:48 Hgb 9.8 gm/dl (11.8-15.2) L 12/05/16 06:48 Hct 30.5 % (35.5-45.6) L 12/05/16 06:48 MCV 82 fl (84-94) L 12/05/16 06:48 MCH 26 pg (28-32) L 12/05/16 06:48 MCHC 32 % (32-34) 12/05/16 06:48 RDW 17.2 % (13.2-15.2) H 12/05/16 06:48 Plt Count 318 K/mm3 (140-440) 12/05/16 06:48 Lymph % (Auto) 31.3 % (13.4-35.0) 12/04/16 05:00 [place] % (Auto) 10.4 % (0.0-7.3) H 12/04/16 05:00 Eos % (Auto) 4.0 % (0.0-4.3) 12/04/16 05:00 Baso % (Auto) 0.8 % (0.0-1.8) 12/04/16 05:00 Lymph # 1.7 K/mm3 (1.2-5.4) 12/04/16 05:00 [place] # 0.5 K/mm3 (0.0-0.8) 12/04/16 05:00 Eos # 0.2 K/mm3 (0.0-0.4) 12/04/16 05:00 Baso # 0.0 K/mm3 (0.0-0.1) 12/04/16 05:00 Add Manual Diff Complete 11/27/16 17:00 Total Counted 100 11/27/16 17:00 Seg Neutrophils % 53.5 % (40.0-70.0) 12/04/16 05:00 Seg Neuts % (Manual) 80.0 % (40.0-70.0) H 11/27/16 17:00 Band Neutrophils % 0 % 11/27/16 17:00 Lymphocytes % (Manual) 9.0 % (13.4-35.0) L 11/27/16 17:00 Reactive Lymphs % (Man) 0 % 11/27/16 17:00 Monocytes % (Manual) 9.0 % (0.0-7.3) H 11/27/16 17:00 Eosinophils % (Manual) 0 % (0.0-4.3) 11/27/16 17:00 Basophils % (Manual) 0 % (0.0-1.8) 11/27/16 17:00 Metamyelocytes % 2.0 % 11/27/16 17:00 Myelocytes % 0 % 11/27/16 17:00 Promyelocytes % 0 % 11/27/16 17:00 Blast Cells % 0 % 11/27/16 17:00 Nucleated RBC % Not Reportable 11/27/16 17:00 Seg Neutrophils # 2.8 K/mm3 (1.8-7.7) 12/04/16 05:00 Seg Neutrophils # Man 7.7 K/mm3 (1.8-7.7) 11/27/16 17:00 Band Neutrophils # 0.0 K/mm3 11/27/16 17:00 Lymphocytes # (Manual) 0.9 K/mm3 (1.2-5.4) L 11/27/16 17:00 Abs React Lymphs (Man) 0.0 K/mm3 11/27/16 17:00 Monocytes # (Manual) 0.9 K/mm3 (0.0-0.8) H 11/27/16 17:00 Eosinophils # (Manual) 0.0 K/mm3 (0.0-0.4) 11/27/16 17:00 Basophils # (Manual) 0.0 K/mm3 (0.0-0.1) 11/27/16 17:00 Metamyelocytes # 0.2 K/mm3 11/27/16 17:00 Myelocytes # 0.0 K/mm3 11/27/16 17:00 Promyelocytes # 0.0 K/mm3 11/27/16 17:00 Blast Cells # 0.0 K/mm3 11/27/16 17:00 WBC Morphology Not Reportable 11/27/16 17:00 Hypersegmented Neuts Not Reportable 11/27/16 17:00 Hyposegmented Neuts Not Reportable 11/27/16 17:00 Hypogranular Neuts Not Reportable 11/27/16 17:00 Smudge Cells Not Reportable 11/27/16 17:00 Toxic Granulation Not Reportable 11/27/16 17:00 Toxic Vacuolation Not Reportable 11/27/16 17:00 Dohle Bodies Not Reportable 11/27/16 17:00 Pelger-Huet Anomaly Not Reportable 11/27/16 17:00 Mati Rods Not Reportable 11/27/16 17:00 Platelet Estimate Consistent w auto 11/27/16 17:00 Clumped Platelets Not Reportable 11/27/16 17:00 Plt Clumps, EDTA Not Reportable 11/27/16 17:00 Large Platelets Not Reportable 11/27/16 17:00 Giant Platelets Not Reportable 11/27/16 17:00 Platelet Satelliting Not Reportable 11/27/16 17:00 Plt Morphology Comment Not Reportable 11/27/16 17:00 RBC Morphology Not Reportable 11/27/16 17:00 Dimorphic RBCs Not Reportable 11/27/16 17:00 Polychromasia Not Reportable 11/27/16 17:00 Hypochromasia Not Reportable 11/27/16 17:00 Poikilocytosis Not Reportable 11/27/16 17:00 Anisocytosis 1+ 11/27/16 17:00 Microcytosis Not Reportable 11/27/16 17:00 Macrocytosis Not Reportable 11/27/16 17:00 Spherocytes Not Reportable 11/27/16 17:00 Pappenheimer Bodies Not Reportable 11/27/16 17:00 Sickle Cells Not Reportable 11/27/16 17:00 Target Cells Not Reportable 11/27/16 17:00 Tear Drop Cells Not Reportable 11/27/16 17:00 Ovalocytes Not Reportable 11/27/16 17:00 Helmet Cells Not Reportable 11/27/16 17:00 [place] Bodies Not Reportable 11/27/16 17:00 [place] Rings Not Reportable 11/27/16 17:00 [place] Cells Not Reportable 11/27/16 17:00 Bite Cells Not Reportable 11/27/16 17:00 Crenated Cell Not Reportable 11/27/16 17:00 Elliptocytes Not Reportable 11/27/16 17:00 Acanthocytes (Spur) Not Reportable 11/27/16 17:00 Rouleaux Not Reportable 11/27/16 17:00 Hemoglobin C Crystals Not Reportable 11/27/16 17:00 Schistocytes Not Reportable 11/27/16 17:00 Malaria parasites Not Reportable 11/27/16 17:00 Michael Bodies Not Reportable 11/27/16 17:00 Hem Pathologist Commnt No 11/27/16 17:00 PT 23.9 Sec. (12.2-14.9) H 11/30/16 17:15 INR 2.13 (0.87-1.13) H 11/30/16 17:15 APTT 62.0 Sec. (24.2-36.6) H* 12/04/16 Unknown Fibrinogen 474 mg/dl (211-480) 11/27/16 23:00 Heparin Anti-Xa Level 0.14 U.I./ml (0.3-0.7) L 11/30/16 Unknown Heparin Anti-Xa, Unfract Negative (Negative) 11/30/16 Unknown Sodium 140 mmol/L (137-145) 12/05/16 06:48 Potassium 3.3 mmol/L (3.6-5.0) L 12/05/16 06:48 Chloride 102.7 mmol/L (98-107) 12/05/16 06:48 Carbon Dioxide 25 mmol/L (22-30) 12/05/16 06:48 Anion Gap 16 mmol/L 12/05/16 06:48 BUN 5 mg/dL (9-20) L 12/05/16 06:48 Creatinine 0.2 mg/dL (0.8-1.5) L 12/05/16 06:48 Estimated GFR > 60 ml/min 12/05/16 06:48 BUN/Creatinine Ratio 25.00 % 12/05/16 06:48 Glucose 140 mg/dL (75-100) H 12/05/16 06:48 POC Glucose 150 (70-105) H 12/06/16 11:21 Calcium 8.2 mg/dL (8.4-10.2) L 12/05/16 06:48 Total Bilirubin 0.3 mg/dL (0.1-1.2) 12/03/16 05:00 Direct Bilirubin 0.2 mg/dL (0-0.2) 11/30/16 04:18 Indirect Bilirubin 0.5 mg/dL 11/30/16 04:18 AST 18 units/L (5-40) 12/03/16 05:00 ALT 142 units/L (7-56) H 12/03/16 05:00 Alkaline Phosphatase 94 units/L (35-129) 12/03/16 05:00 Total Protein 5.7 g/dL (6.3-8.2) L 12/03/16 05:00 Albumin 2.6 g/dL (3.9-5) L 12/03/16 05:00 Albumin/Globulin Ratio 0.8 % 12/03/16 05:00 Serotonin Release Assay See scanned report 11/30/16 Unknown Urine Color Yellow (Yellow) 11/30/16 Unknown Urine Turbidity Slightly-cloudy (Clear) 11/30/16 Unknown Urine pH 5.0 (5.0-7.0) 11/30/16 Unknown Ur Specific [place] 1.020 (1.003-1.030) 11/30/16 Unknown Urine Protein 30 mg/dl mg/dL (Negative) 11/30/16 Unknown Urine Glucose (UA) Neg mg/dL (Negative) 11/30/16 Unknown Urine Ketones Neg mg/dL (Negative) 11/30/16 Unknown Urine Blood Sm (Negative) 11/30/16 Unknown Urine Nitrite Neg (Negative) 11/30/16 Unknown Urine Bilirubin Neg (Negative) 11/30/16 Unknown Urine Urobilinogen 2.0 mg/dL (<2.0) 11/30/16 Unknown Ur Leukocyte Esterase Sm (Negative) 11/30/16 Unknown Urine WBC (Auto) 19.0 /HPF (0.0-6.0) H 11/30/16 Unknown Urine RBC (Auto) 5.0 /HPF (0.0-6.0) 11/30/16 Unknown U Epithel Cells (Auto) < 1.0 /HPF (0-13.0) 11/30/16 Unknown Uric Acid Crystals 1+ 11/30/16 Unknown Urine Mucus 1+ /HPF 11/30/16 Unknown Heparin-induced Plt Ab Negative (Negative) 11/30/16 Unknown UF Heparin High Dose 0 % Release (()) 11/30/16 Unknown MIKA UFH Low Dose 0.1 1 % Release (()) 11/30/16 Unknown MIKA UFH Low Dose 0.5 0 % Release (()) 11/30/16 Unknown Blood Type O POSITIVE 11/27/16 02:58 Antibody Screen Negative 11/27/16 02:58
[2016-12-07] MEDS: XANAX PO PRN (01:30)
[2016-12-07] MEDS: LEVSIN SL SL PRN (01:31)
[2016-12-07] MEDS: ROXICODONE PO PRN ×3 (05:50→19:25)
[2016-12-07] MEDS: PERCOCET 5/325 PO PRN ×3 (05:50→19:25)
[2016-12-07] MEDS: ceFAZolin 2 GM in NACL 0.9% 100 ML IV SCH (05:50)
[2016-12-07 08:57] LABS: Basophils % (Auto) 0.9 % (0.0-1.8); Eosinophils % (Auto) 3.9 % (0.0-4.3); Hematocrit 32.1 % (35.5-45.6); Hemoglobin 10.4 gm/dl (11.8-15.2); Mean Corpuscular HGB Conc 33 % (32-34); Mean Corpuscular Hemoglobin 26 pg (28-32); Mean Corpuscular Volume 81 fl (84-94); Platelet Count 331 K/mm3 (140-440); Red Blood Count 3.97 M/mm3 (3.65-5.03); Red Cell Distribution Width 17.3 % (13.2-15.2); White Blood Count 5.3 K/mm3 (4.5-11.0)
[2016-12-07 09:18] LABS: Alanine Aminotransferase 21 units/L (7-56); Albumin 2.9 g/dL (3.9-5); Albumin/Globulin Ratio 0.9 %; Alkaline Phosphatase 83 units/L (35-129); Bilirubin,Total 0.3 mg/dL (0.1-1.2); Blood Urea Nitrogen 4 mg/dL (9-20); Calcium 8.7 mg/dL (8.4-10.2); Carbon Dioxide 26 mmol/L (22-30); Glucose 90 mg/dL (75-100); Total Protein 6.2 g/dL (6.3-8.2)
[2016-12-07 09:19] LABS: Anion Gap 19 mmol/L; Chloride 100.6 mmol/L (98-107); Potassium 4.1 mmol/L (3.6-5.0); Sodium 141 mmol/L (137-145)
[2016-12-07] MEDS: PEPCID PO SCH ×2 (09:32→21:22)
[2016-12-07] MEDS: MILK OF MAGNESIA PO PRN (09:32)
[2016-12-07] MEDS: DOLOPHINE PO SCH (09:32)
[2016-12-07] MEDS: NYSTOP TP SCH ×2 (09:39→21:22)
[2016-12-07] MEDS: NOVOLOG SUB-Q SCH ×4 (11:43→21:21)
[2016-12-07] MEDS: ELIQUIS PO SCH ×2 (11:59→21:23)
--- NOTE | 2016-12-07 16:38 | Progress Note ---
Assessment and Plan Assessment and plan: 1. Bilateral pulmonary emboli with saddle emboli with pulmonary hypertension - s /p EKOS, thrombectomy, IVC filter placement; echo 11/2016: EF 45-50%, RA/RV moderately dilated, RVSP 65mmHg; bilateral venous ultrasound negative for dvt; cotn on eliquis as HIT antibody negative; hematology f/u appreciated 2. Diabetes 2- cont insulin sliding scale; 3. Psoas abscess- d/wed with Dr. Hurley- he recommended d/c antibiotic as he has had a full course of antibioitc of more than 6 weeks; no further treatment or evaluation recommended 4. Debility - PT eval 5. DVT prophylaxis- cont eliquis awaiting SNF placement History Interval history: f/u bilateral PE\; psoas abscess Patient seen at the bedside; no complaints today Hospitalist Physical - Constitutional Vitals: Temp Pulse Resp BP Pulse Ox 98.4 F 75 20 122/76 94 12/07/16 12:57 12/07/16 12:57 12/07/16 12:57 12/07/16 12:57 12/07/16 12:57 General appearance: Present: no acute distress, obese (morbid) - EENT Eyes: Present: PERRL, EOM intact. Absent: scleral icterus, conjunctival injection ENT: hearing intact, clear oral mucosa, no oropharyngeal erythema, no poor dentition - Neck Neck: Present: supple, normal ROM. Absent: enlarged thyroid, masses or JVD - Respiratory Respiratory effort: normal Respiratory: negative: diminished, rales, rhonchi, wheezing - Cardiovascular Rhythm: regular Heart Sounds: Present: S1 & S2. Absent: gallop - Extremities Extremities: no ischemia, pulses intact, pulses symmetrical, No edema Peripheral Pulses: within normal limits - Abdominal General gastrointestinal: soft, non-tender, non-distended - Integumentary Integumentary: Present: clear - Psychiatric Psychiatric: appropriate mood/affect, intact judgment & insight - Neurologic Neurologic: CNII-XII intact, no moves all extremities (reduced mobility in legs) Results - Labs CBC & Chem 7: 12/07/16 06:32 12/07/16 06:32 Labs: Laboratory Last Values WBC 5.3 K/mm3 (4.5-11.0) 12/07/16 06:32 RBC 3.97 M/mm3 (3.65-5.03) 12/07/16 06:32 Hgb 10.4 gm/dl (11.8-15.2) L 12/07/16 06:32 Hct 32.1 % (35.5-45.6) L 12/07/16 06:32 MCV 81 fl (84-94) L 12/07/16 06:32 MCH 26 pg (28-32) L 12/07/16 06:32 MCHC 33 % (32-34) 12/07/16 06:32 RDW 17.3 % (13.2-15.2) H 12/07/16 06:32 Plt Count 331 K/mm3 (140-440) 12/07/16 06:32 Lymph % (Auto) 32.8 % (13.4-35.0) 12/07/16 06:32 [place] % (Auto) 11.5 % (0.0-7.3) H 12/07/16 06:32 Eos % (Auto) 3.9 % (0.0-4.3) 12/07/16 06:32 Baso % (Auto) 0.9 % (0.0-1.8) 12/07/16 06:32 Lymph # 1.7 K/mm3 (1.2-5.4) 12/07/16 06:32 [place] # 0.6 K/mm3 (0.0-0.8) 12/07/16 06:32 Eos # 0.2 K/mm3 (0.0-0.4) 12/07/16 06:32 Baso # 0.0 K/mm3 (0.0-0.1) 12/07/16 06:32 Add Manual Diff Complete 11/27/16 17:00 Total Counted 100 11/27/16 17:00 Seg Neutrophils % 50.9 % (40.0-70.0) 12/07/16 06:32 Seg Neuts % (Manual) 80.0 % (40.0-70.0) H 11/27/16 17:00 Band Neutrophils % 0 % 11/27/16 17:00 Lymphocytes % (Manual) 9.0 % (13.4-35.0) L 11/27/16 17:00 Reactive Lymphs % (Man) 0 % 11/27/16 17:00 Monocytes % (Manual) 9.0 % (0.0-7.3) H 11/27/16 17:00 Eosinophils % (Manual) 0 % (0.0-4.3) 11/27/16 17:00 Basophils % (Manual) 0 % (0.0-1.8) 11/27/16 17:00 Metamyelocytes % 2.0 % 11/27/16 17:00 Myelocytes % 0 % 11/27/16 17:00 Promyelocytes % 0 % 11/27/16 17:00 Blast Cells % 0 % 11/27/16 17:00 Nucleated RBC % Not Reportable 11/27/16 17:00 Seg Neutrophils # 2.7 K/mm3 (1.8-7.7) 12/07/16 06:32 Seg Neutrophils # Man 7.7 K/mm3 (1.8-7.7) 11/27/16 17:00 Band Neutrophils # 0.0 K/mm3 11/27/16 17:00 Lymphocytes # (Manual) 0.9 K/mm3 (1.2-5.4) L 11/27/16 17:00 Abs React Lymphs (Man) 0.0 K/mm3 11/27/16 17:00 Monocytes # (Manual) 0.9 K/mm3 (0.0-0.8) H 11/27/16 17:00 Eosinophils # (Manual) 0.0 K/mm3 (0.0-0.4) 11/27/16 17:00 Basophils # (Manual) 0.0 K/mm3 (0.0-0.1) 11/27/16 17:00 Metamyelocytes # 0.2 K/mm3 11/27/16 17:00 Myelocytes # 0.0 K/mm3 11/27/16 17:00 Promyelocytes # 0.0 K/mm3 11/27/16 17:00 Blast Cells # 0.0 K/mm3 11/27/16 17:00 WBC Morphology Not Reportable 11/27/16 17:00 Hypersegmented Neuts Not Reportable 11/27/16 17:00 Hyposegmented Neuts Not Reportable 11/27/16 17:00 Hypogranular Neuts Not Reportable 11/27/16 17:00 Smudge Cells Not Reportable 11/27/16 17:00 Toxic Granulation Not Reportable 11/27/16 17:00 Toxic Vacuolation Not Reportable 11/27/16 17:00 Dohle Bodies Not Reportable 11/27/16 17:00 Pelger-Huet Anomaly Not Reportable 11/27/16 17:00 Mati Rods Not Reportable 11/27/16 17:00 Platelet Estimate Consistent w auto 11/27/16 17:00 Clumped Platelets Not Reportable 11/27/16 17:00 Plt Clumps, EDTA Not Reportable 11/27/16 17:00 Large Platelets Not Reportable 11/27/16 17:00 Giant Platelets Not Reportable 11/27/16 17:00 Platelet Satelliting Not Reportable 11/27/16 17:00 Plt Morphology Comment Not Reportable 11/27/16 17:00 RBC Morphology Not Reportable 11/27/16 17:00 Dimorphic RBCs Not Reportable 11/27/16 17:00 Polychromasia Not Reportable 11/27/16 17:00 Hypochromasia Not Reportable 11/27/16 17:00 Poikilocytosis Not Reportable 11/27/16 17:00 Anisocytosis 1+ 11/27/16 17:00 Microcytosis Not Reportable 11/27/16 17:00 Macrocytosis Not Reportable 11/27/16 17:00 Spherocytes Not Reportable 11/27/16 17:00 Pappenheimer Bodies Not Reportable 11/27/16 17:00 Sickle Cells Not Reportable 11/27/16 17:00 Target Cells Not Reportable 11/27/16 17:00 Tear Drop Cells Not Reportable 11/27/16 17:00 Ovalocytes Not Reportable 11/27/16 17:00 Helmet Cells Not Reportable 11/27/16 17:00 [place] Bodies Not Reportable 11/27/16 17:00 [place] Rings Not Reportable 11/27/16 17:00 [place] Cells Not Reportable 11/27/16 17:00 Bite Cells Not Reportable 11/27/16 17:00 Crenated Cell Not Reportable 11/27/16 17:00 Elliptocytes Not Reportable 11/27/16 17:00 Acanthocytes (Spur) Not Reportable 11/27/16 17:00 Rouleaux Not Reportable 11/27/16 17:00 Hemoglobin C Crystals Not Reportable 11/27/16 17:00 Schistocytes Not Reportable 11/27/16 17:00 Malaria parasites Not Reportable 11/27/16 17:00 Michael Bodies Not Reportable 11/27/16 17:00 Hem Pathologist Commnt No 11/27/16 17:00 PT 23.9 Sec. (12.2-14.9) H 11/30/16 17:15 INR 2.13 (0.87-1.13) H 11/30/16 17:15 APTT 62.0 Sec. (24.2-36.6) H* 12/04/16 Unknown Fibrinogen 474 mg/dl (211-480) 11/27/16 23:00 Heparin Anti-Xa Level 0.14 U.I./ml (0.3-0.7) L 11/30/16 Unknown Heparin Anti-Xa, Unfract Negative (Negative) 11/30/16 Unknown Sodium 141 mmol/L (137-145) 12/07/16 06:32 Potassium 4.1 mmol/L (3.6-5.0) D 12/07/16 06:32 Chloride 100.6 mmol/L (98-107) 12/07/16 06:32 Carbon Dioxide 26 mmol/L (22-30) 12/07/16 06:32 Anion Gap 19 mmol/L 12/07/16 06:32 BUN 4 mg/dL (9-20) L 12/07/16 06:32 Creatinine 0.2 mg/dL (0.8-1.5) L 12/07/16 06:32 Estimated GFR > 60 ml/min 12/07/16 06:32 BUN/Creatinine Ratio 20.00 % 12/07/16 06:32 Glucose 90 mg/dL (75-100) 12/07/16 06:32 POC Glucose 172 (70-105) H 12/06/16 20:25 Calcium 8.7 mg/dL (8.4-10.2) 12/07/16 06:32 Total Bilirubin 0.3 mg/dL (0.1-1.2) 12/07/16 06:32 Direct Bilirubin 0.2 mg/dL (0-0.2) 11/30/16 04:18 Indirect Bilirubin 0.5 mg/dL 11/30/16 04:18 AST 12 units/L (5-40) 12/07/16 06:32 ALT 21 units/L (7-56) 12/07/16 06:32 Alkaline Phosphatase 83 units/L (35-129) 12/07/16 06:32 Total Protein 6.2 g/dL (6.3-8.2) L 12/07/16 06:32 Albumin 2.9 g/dL (3.9-5) L 12/07/16 06:32 Albumin/Globulin Ratio 0.9 % 12/07/16 06:32 Serotonin Release Assay See scanned report 11/30/16 Unknown Urine Color Yellow (Yellow) 11/30/16 Unknown Urine Turbidity Slightly-cloudy (Clear) 11/30/16 Unknown Urine pH 5.0 (5.0-7.0) 11/30/16 Unknown Ur Specific [place] 1.020 (1.003-1.030) 11/30/16 Unknown Urine Protein 30 mg/dl mg/dL (Negative) 11/30/16 Unknown Urine Glucose (UA) Neg mg/dL (Negative) 11/30/16 Unknown Urine Ketones Neg mg/dL (Negative) 11/30/16 Unknown Urine Blood Sm (Negative) 11/30/16 Unknown Urine Nitrite Neg (Negative) 11/30/16 Unknown Urine Bilirubin Neg (Negative) 11/30/16 Unknown Urine Urobilinogen 2.0 mg/dL (<2.0) 11/30/16 Unknown Ur Leukocyte Esterase Sm (Negative) 11/30/16 Unknown Urine WBC (Auto) 19.0 /HPF (0.0-6.0) H 11/30/16 Unknown Urine RBC (Auto) 5.0 /HPF (0.0-6.0) 11/30/16 Unknown U Epithel Cells (Auto) < 1.0 /HPF (0-13.0) 11/30/16 Unknown Uric Acid Crystals 1+ 11/30/16 Unknown Urine Mucus 1+ /HPF 11/30/16 Unknown Heparin-induced Plt Ab Negative (Negative) 11/30/16 Unknown UF Heparin High Dose 0 % Release (()) 11/30/16 Unknown MIKA UFH Low Dose 0.1 1 % Release (()) 11/30/16 Unknown MIKA UFH Low Dose 0.5 0 % Release (()) 11/30/16 Unknown Blood Type O POSITIVE 11/27/16 02:58 Antibody Screen Negative 11/27/16 02:58
[2016-12-07] MEDS: ALUM-MAG HYDROX-SIMETH 200-200-20MG/5ML PO PRN (19:25)
[2016-12-07] MEDS: MIRALAX 3350 PO PRN (19:25)
[2016-12-08] MEDS: ROXICODONE PO PRN ×3 (00:07→15:56)
[2016-12-08] MEDS: PERCOCET 5/325 PO PRN ×3 (00:08→15:55)
[2016-12-08] MEDS: XANAX PO PRN ×3 (05:59→18:37)
[2016-12-08] MEDS: NOVOLOG SUB-Q SCH ×4 (10:00→21:09)
[2016-12-08] MEDS: DOLOPHINE PO SCH (12:03)
[2016-12-08] MEDS: PEPCID PO SCH ×2 (12:03→21:25)
[2016-12-08] MEDS: NYSTOP TP SCH ×2 (12:04→21:10)
[2016-12-08] MEDS: ELIQUIS PO SCH ×2 (12:04→21:25)
--- NOTE | 2016-12-08 13:46 | Progress Note ---
Assessment and Plan Assessment and plan: 1. Bilateral pulmonary emboli with saddle emboli with pulmonary hypertension - s /p EKOS, thrombectomy, IVC filter placement; echo 11/2016: EF 45-50%, RA/RV moderately dilated, RVSP 65mmHg; bilateral venous ultrasound negative for dvt; cotn on eliquis as HIT antibody negative; hematology f/u appreciated 2. Diabetes 2- cont insulin sliding scale; 3. Psoas abscess- d/sat with Dr. Hurley- he recommended d/c antibiotic as he has had a full course of antibioitc of more than 6 weeks; no further treatment or evaluation recommended 4. Debility - PT eval 5. DVT prophylaxis- cont eliquis awaiting SNF placement History Interval history: f/u bilateral PE\; psoas abscess Patient seen at the bedside; no complaints today; had BM yesterday after [facility] Hospitalist Physical - Constitutional Vitals: Temp Pulse Resp BP Pulse Ox 98.2 F 77 20 121/18 95 12/08/16 08:26 12/08/16 08:26 12/08/16 08:26 12/08/16 08:26 12/08/16 12:45 General appearance: Present: no acute distress, obese (morbid) - EENT Eyes: Present: PERRL, EOM intact. Absent: scleral icterus, conjunctival injection, exopthalmos ENT: hearing intact, clear oral mucosa, no oropharyngeal erythema, no poor dentition - Neck Neck: Present: supple, normal ROM. Absent: enlarged thyroid, masses or JVD - Respiratory Respiratory effort: normal Respiratory: negative: diminished, rales, rhonchi, wheezing - Cardiovascular Rhythm: regular Heart Sounds: Present: S1 & S2 - Extremities Extremities: no ischemia, pulses intact, pulses symmetrical, No edema Peripheral Pulses: within normal limits - Abdominal General gastrointestinal: soft, non-tender, non-distended - Integumentary Integumentary: Present: clear - Psychiatric Psychiatric: appropriate mood/affect, intact judgment & insight - Neurologic Neurologic: CNII-XII intact, moves all extremities Results - Labs CBC & Chem 7: 12/07/16 06:32 12/07/16 06:32 Labs: Laboratory Last Values WBC 5.3 K/mm3 (4.5-11.0) 12/07/16 06:32 RBC 3.97 M/mm3 (3.65-5.03) 12/07/16 06:32 Hgb 10.4 gm/dl (11.8-15.2) L 12/07/16 06:32 Hct 32.1 % (35.5-45.6) L 12/07/16 06:32 MCV 81 fl (84-94) L 12/07/16 06:32 MCH 26 pg (28-32) L 12/07/16 06:32 MCHC 33 % (32-34) 12/07/16 06:32 RDW 17.3 % (13.2-15.2) H 12/07/16 06:32 Plt Count 331 K/mm3 (140-440) 12/07/16 06:32 Lymph % (Auto) 32.8 % (13.4-35.0) 12/07/16 06:32 [place] % (Auto) 11.5 % (0.0-7.3) H 12/07/16 06:32 Eos % (Auto) 3.9 % (0.0-4.3) 12/07/16 06:32 Baso % (Auto) 0.9 % (0.0-1.8) 12/07/16 06:32 Lymph # 1.7 K/mm3 (1.2-5.4) 12/07/16 06:32 [place] # 0.6 K/mm3 (0.0-0.8) 12/07/16 06:32 Eos # 0.2 K/mm3 (0.0-0.4) 12/07/16 06:32 Baso # 0.0 K/mm3 (0.0-0.1) 12/07/16 06:32 Add Manual Diff Complete 11/27/16 17:00 Total Counted 100 11/27/16 17:00 Seg Neutrophils % 50.9 % (40.0-70.0) 12/07/16 06:32 Seg Neuts % (Manual) 80.0 % (40.0-70.0) H 11/27/16 17:00 Band Neutrophils % 0 % 11/27/16 17:00 Lymphocytes % (Manual) 9.0 % (13.4-35.0) L 11/27/16 17:00 Reactive Lymphs % (Man) 0 % 11/27/16 17:00 Monocytes % (Manual) 9.0 % (0.0-7.3) H 11/27/16 17:00 Eosinophils % (Manual) 0 % (0.0-4.3) 11/27/16 17:00 Basophils % (Manual) 0 % (0.0-1.8) 11/27/16 17:00 Metamyelocytes % 2.0 % 11/27/16 17:00 Myelocytes % 0 % 11/27/16 17:00 Promyelocytes % 0 % 11/27/16 17:00 Blast Cells % 0 % 11/27/16 17:00 Nucleated RBC % Not Reportable 11/27/16 17:00 Seg Neutrophils # 2.7 K/mm3 (1.8-7.7) 12/07/16 06:32 Seg Neutrophils # Man 7.7 K/mm3 (1.8-7.7) 11/27/16 17:00 Band Neutrophils # 0.0 K/mm3 11/27/16 17:00 Lymphocytes # (Manual) 0.9 K/mm3 (1.2-5.4) L 11/27/16 17:00 Abs React Lymphs (Man) 0.0 K/mm3 11/27/16 17:00 Monocytes # (Manual) 0.9 K/mm3 (0.0-0.8) H 11/27/16 17:00 Eosinophils # (Manual) 0.0 K/mm3 (0.0-0.4) 11/27/16 17:00 Basophils # (Manual) 0.0 K/mm3 (0.0-0.1) 11/27/16 17:00 Metamyelocytes # 0.2 K/mm3 11/27/16 17:00 Myelocytes # 0.0 K/mm3 11/27/16 17:00 Promyelocytes # 0.0 K/mm3 11/27/16 17:00 Blast Cells # 0.0 K/mm3 11/27/16 17:00 WBC Morphology Not Reportable 11/27/16 17:00 Hypersegmented Neuts Not Reportable 11/27/16 17:00 Hyposegmented Neuts Not Reportable 11/27/16 17:00 Hypogranular Neuts Not Reportable 11/27/16 17:00 Smudge Cells Not Reportable 11/27/16 17:00 Toxic Granulation Not Reportable 11/27/16 17:00 Toxic Vacuolation Not Reportable 11/27/16 17:00 Dohle Bodies Not Reportable 11/27/16 17:00 Pelger-Huet Anomaly Not Reportable 11/27/16 17:00 Mati Rods Not Reportable 11/27/16 17:00 Platelet Estimate Consistent w auto 11/27/16 17:00 Clumped Platelets Not Reportable 11/27/16 17:00 Plt Clumps, EDTA Not Reportable 11/27/16 17:00 Large Platelets Not Reportable 11/27/16 17:00 Giant Platelets Not Reportable 11/27/16 17:00 Platelet Satelliting Not Reportable 11/27/16 17:00 Plt Morphology Comment Not Reportable 11/27/16 17:00 RBC Morphology Not Reportable 11/27/16 17:00 Dimorphic RBCs Not Reportable 11/27/16 17:00 Polychromasia Not Reportable 11/27/16 17:00 Hypochromasia Not Reportable 11/27/16 17:00 Poikilocytosis Not Reportable 11/27/16 17:00 Anisocytosis 1+ 11/27/16 17:00 Microcytosis Not Reportable 11/27/16 17:00 Macrocytosis Not Reportable 11/27/16 17:00 Spherocytes Not Reportable 11/27/16 17:00 Pappenheimer Bodies Not Reportable 11/27/16 17:00 Sickle Cells Not Reportable 11/27/16 17:00 Target Cells Not Reportable 11/27/16 17:00 Tear Drop Cells Not Reportable 11/27/16 17:00 Ovalocytes Not Reportable 11/27/16 17:00 Helmet Cells Not Reportable 11/27/16 17:00 Serrato-[place] Bodies Not Reportable 11/27/16 17:00 [place] Rings Not Reportable 11/27/16 17:00 [place] Cells Not Reportable 11/27/16 17:00 Bite Cells Not Reportable 11/27/16 17:00 Crenated Cell Not Reportable 11/27/16 17:00 Elliptocytes Not Reportable 11/27/16 17:00 Acanthocytes (Spur) Not Reportable 11/27/16 17:00 Rouleaux Not Reportable 11/27/16 17:00 Hemoglobin C Crystals Not Reportable 11/27/16 17:00 Schistocytes Not Reportable 11/27/16 17:00 Malaria parasites Not Reportable 11/27/16 17:00 Michael Bodies Not Reportable 11/27/16 17:00 Hem Pathologist Commnt No 11/27/16 17:00 PT 23.9 Sec. (12.2-14.9) H 11/30/16 17:15 INR 2.13 (0.87-1.13) H 11/30/16 17:15 APTT 62.0 Sec. (24.2-36.6) H* 12/04/16 Unknown Fibrinogen 474 mg/dl (211-480) 11/27/16 23:00 Heparin Anti-Xa Level 0.14 U.I./ml (0.3-0.7) L 11/30/16 Unknown Heparin Anti-Xa, Unfract Negative (Negative) 11/30/16 Unknown Sodium 141 mmol/L (137-145) 12/07/16 06:32 Potassium 4.1 mmol/L (3.6-5.0) D 12/07/16 06:32 Chloride 100.6 mmol/L (98-107) 12/07/16 06:32 Carbon Dioxide 26 mmol/L (22-30) 12/07/16 06:32 Anion Gap 19 mmol/L 12/07/16 06:32 BUN 4 mg/dL (9-20) L 12/07/16 06:32 Creatinine 0.2 mg/dL (0.8-1.5) L 12/07/16 06:32 Estimated GFR > 60 ml/min 12/07/16 06:32 BUN/Creatinine Ratio 20.00 % 12/07/16 06:32 Glucose 90 mg/dL (75-100) 12/07/16 06:32 POC Glucose 125 (70-105) H 12/08/16 11:13 Calcium 8.7 mg/dL (8.4-10.2) 12/07/16 06:32 Total Bilirubin 0.3 mg/dL (0.1-1.2) 12/07/16 06:32 Direct Bilirubin 0.2 mg/dL (0-0.2) 11/30/16 04:18 Indirect Bilirubin 0.5 mg/dL 11/30/16 04:18 AST 12 units/L (5-40) 12/07/16 06:32 ALT 21 units/L (7-56) 12/07/16 06:32 Alkaline Phosphatase 83 units/L (35-129) 12/07/16 06:32 Total Protein 6.2 g/dL (6.3-8.2) L 12/07/16 06:32 Albumin 2.9 g/dL (3.9-5) L 12/07/16 06:32 Albumin/Globulin Ratio 0.9 % 12/07/16 06:32 Serotonin Release Assay See scanned report 11/30/16 Unknown Urine Color Yellow (Yellow) 11/30/16 Unknown Urine Turbidity Slightly-cloudy (Clear) 11/30/16 Unknown Urine pH 5.0 (5.0-7.0) 11/30/16 Unknown Ur Specific [place] 1.020 (1.003-1.030) 11/30/16 Unknown Urine Protein 30 mg/dl mg/dL (Negative) 11/30/16 Unknown Urine Glucose (UA) Neg mg/dL (Negative) 11/30/16 Unknown Urine Ketones Neg mg/dL (Negative) 11/30/16 Unknown Urine Blood Sm (Negative) 11/30/16 Unknown Urine Nitrite Neg (Negative) 11/30/16 Unknown Urine Bilirubin Neg (Negative) 11/30/16 Unknown Urine Urobilinogen 2.0 mg/dL (<2.0) 11/30/16 Unknown Ur Leukocyte Esterase Sm (Negative) 11/30/16 Unknown Urine WBC (Auto) 19.0 /HPF (0.0-6.0) H 11/30/16 Unknown Urine RBC (Auto) 5.0 /HPF (0.0-6.0) 11/30/16 Unknown U Epithel Cells (Auto) < 1.0 /HPF (0-13.0) 11/30/16 Unknown Uric Acid Crystals 1+ 11/30/16 Unknown Urine Mucus 1+ /HPF 11/30/16 Unknown Heparin-induced Plt Ab Negative (Negative) 11/30/16 Unknown UF Heparin High Dose 0 % Release (()) 11/30/16 Unknown MIKA UFH Low Dose 0.1 1 % Release (()) 11/30/16 Unknown MIKA UFH Low Dose 0.5 0 % Release (()) 11/30/16 Unknown Blood Type O POSITIVE 12/27/16 02:58 Antibody Screen Negative 11/27/16 02:58
[2016-12-09] MEDS: ROXICODONE PO PRN ×3 (00:26→18:28)
[2016-12-09] MEDS: PERCOCET 5/325 PO PRN ×3 (00:26→18:28)
[2016-12-09] MEDS: XANAX PO PRN ×2 (06:09→13:39)
[2016-12-09] MEDS: PEPCID PO SCH ×2 (10:25→21:40)
[2016-12-09] MEDS: ELIQUIS PO SCH ×2 (10:25→21:40)
[2016-12-09] MEDS: DOLOPHINE PO SCH (10:25)
[2016-12-09] MEDS: NOVOLOG SUB-Q SCH ×3 (10:25→18:15)
[2016-12-09] MEDS: NYSTOP TP SCH ×2 (10:27→21:39)
--- NOTE | 2016-12-09 13:26 | Progress Note ---
Assessment and Plan Assessment and plan: 1. Bilateral pulmonary emboli with saddle emboli with pulmonary hypertension - s /p EKOS, thrombectomy, IVC filter placement; echo 11/2016: EF 45-50%, RA/RV moderately dilated, RVSP 65mmHg; bilateral venous ultrasound negative for dvt; cotn on eliquis as HIT antibody negative; hematology f/u appreciated 2. Diabetes 2- cont insulin sliding scale; 3. Debility - PT eval 4. DVT prophylaxis- cont eliquis awaiting SNF placement History Interval history: f/u bilateral PE\; psoas abscess Patient seen at the bedside; no complaints today; Hospitalist Physical - Constitutional Vitals: Temp Pulse Resp BP Pulse Ox 98.4 F 84 20 101/69 97 12/09/16 12:36 12/09/16 12:36 12/09/16 12:36 12/09/16 12:36 12/09/16 12:36 General appearance: Present: no acute distress, obese (morbid) - EENT Eyes: Present: PERRL, EOM intact. Absent: scleral icterus, conjunctival injection ENT: hearing intact, clear oral mucosa, no oropharyngeal erythema, no poor dentition - Neck Neck: Present: supple, normal ROM. Absent: enlarged thyroid, masses or JVD - Respiratory Respiratory effort: normal Respiratory: negative: diminished, rales, rhonchi, wheezing - Cardiovascular Rhythm: regular Heart Sounds: Present: S1 & S2. Absent: gallop - Extremities Extremities: no ischemia, pulses intact, pulses symmetrical, No edema Peripheral Pulses: within normal limits - Abdominal General gastrointestinal: soft, non-tender, non-distended, normal bowel sounds - Integumentary Integumentary: Present: clear - Psychiatric Psychiatric: appropriate mood/affect, intact judgment & insight, cooperative - Neurologic Neurologic: CNII-XII intact, moves all extremities (power 2 in lower extremities ) Results - Labs CBC & Chem 7: 12/07/16 06:32 12/07/16 06:32 Labs: Laboratory Last Values WBC 5.3 K/mm3 (4.5-11.0) 12/07/16 06:32 RBC 3.97 M/mm3 (3.65-5.03) 12/07/16 06:32 Hgb 10.4 gm/dl (11.8-15.2) L 12/07/16 06:32 Hct 32.1 % (35.5-45.6) L 12/07/16 06:32 MCV 81 fl (84-94) L 12/07/16 06:32 MCH 26 pg (28-32) L 12/07/16 06:32 MCHC 33 % (32-34) 12/07/16 06:32 RDW 17.3 % (13.2-15.2) H 12/07/16 06:32 Plt Count 331 K/mm3 (140-440) 12/07/16 06:32 Lymph % (Auto) 32.8 % (13.4-35.0) 12/07/16 06:32 [place] % (Auto) 11.5 % (0.0-7.3) H 12/07/16 06:32 Eos % (Auto) 3.9 % (0.0-4.3) 12/07/16 06:32 Baso % (Auto) 0.9 % (0.0-1.8) 12/07/16 06:32 Lymph # 1.7 K/mm3 (1.2-5.4) 12/07/16 06:32 [place] # 0.6 K/mm3 (0.0-0.8) 12/07/16 06:32 Eos # 0.2 K/mm3 (0.0-0.4) 12/07/16 06:32 Baso # 0.0 K/mm3 (0.0-0.1) 12/07/16 06:32 Add Manual Diff Complete 11/27/16 17:00 Total Counted 100 11/27/16 17:00 Seg Neutrophils % 50.9 % (40.0-70.0) 12/07/16 06:32 Seg Neuts % (Manual) 80.0 % (40.0-70.0) H 11/27/16 17:00 Band Neutrophils % 0 % 11/27/16 17:00 Lymphocytes % (Manual) 9.0 % (13.4-35.0) L 11/27/16 17:00 Reactive Lymphs % (Man) 0 % 11/27/16 17:00 Monocytes % (Manual) 9.0 % (0.0-7.3) H 11/27/16 17:00 Eosinophils % (Manual) 0 % (0.0-4.3) 11/27/16 17:00 Basophils % (Manual) 0 % (0.0-1.8) 11/27/16 17:00 Metamyelocytes % 2.0 % 11/27/16 17:00 Myelocytes % 0 % 11/27/16 17:00 Promyelocytes % 0 % 11/27/16 17:00 Blast Cells % 0 % 11/27/16 17:00 Nucleated RBC % Not Reportable 11/27/16 17:00 Seg Neutrophils # 2.7 K/mm3 (1.8-7.7) 12/07/16 06:32 Seg Neutrophils # Man 7.7 K/mm3 (1.8-7.7) 11/27/16 17:00 Band Neutrophils # 0.0 K/mm3 11/27/16 17:00 Lymphocytes # (Manual) 0.9 K/mm3 (1.2-5.4) L 11/27/16 17:00 Abs React Lymphs (Man) 0.0 K/mm3 11/27/16 17:00 Monocytes # (Manual) 0.9 K/mm3 (0.0-0.8) H 11/27/16 17:00 Eosinophils # (Manual) 0.0 K/mm3 (0.0-0.4) 11/27/16 17:00 Basophils # (Manual) 0.0 K/mm3 (0.0-0.1) 11/27/16 17:00 Metamyelocytes # 0.2 K/mm3 11/27/16 17:00 Myelocytes # 0.0 K/mm3 11/27/16 17:00 Promyelocytes # 0.0 K/mm3 11/27/16 17:00 Blast Cells # 0.0 K/mm3 11/27/16 17:00 WBC Morphology Not Reportable 11/27/16 17:00 Hypersegmented Neuts Not Reportable 11/27/16 17:00 Hyposegmented Neuts Not Reportable 11/27/16 17:00 Hypogranular Neuts Not Reportable 11/27/16 17:00 Smudge Cells Not Reportable 11/27/16 17:00 Toxic Granulation Not Reportable 11/27/16 17:00 Toxic Vacuolation Not Reportable 11/27/16 17:00 Dohle Bodies Not Reportable 11/27/16 17:00 Pelger-Huet Anomaly Not Reportable 11/27/16 17:00 Mati Rods Not Reportable 11/27/16 17:00 Platelet Estimate Consistent w auto 11/27/16 17:00 Clumped Platelets Not Reportable 11/27/16 17:00 Plt Clumps, EDTA Not Reportable 11/27/16 17:00 Large Platelets Not Reportable 11/27/16 17:00 Giant Platelets Not Reportable 11/27/16 17:00 Platelet Satelliting Not Reportable 11/27/16 17:00 Plt Morphology Comment Not Reportable 11/27/16 17:00 RBC Morphology Not Reportable 11/27/16 17:00 Dimorphic RBCs Not Reportable 11/27/16 17:00 Polychromasia Not Reportable 11/27/16 17:00 Hypochromasia Not Reportable 11/27/16 17:00 Poikilocytosis Not Reportable 11/27/16 17:00 Anisocytosis 1+ 11/27/16 17:00 Microcytosis Not Reportable 11/27/16 17:00 Macrocytosis Not Reportable 11/27/16 17:00 Spherocytes Not Reportable 11/27/16 17:00 Pappenheimer Bodies Not Reportable 11/27/16 17:00 Sickle Cells Not Reportable 11/27/16 17:00 Target Cells Not Reportable 11/27/16 17:00 Tear Drop Cells Not Reportable 11/27/16 17:00 Ovalocytes Not Reportable 11/27/16 17:00 Helmet Cells Not Reportable 11/27/16 17:00 Serrato-[place] Bodies Not Reportable 11/27/16 17:00 [place] Rings Not Reportable 11/27/16 17:00 [place] Cells Not Reportable 11/27/16 17:00 Bite Cells Not Reportable 11/27/16 17:00 Crenated Cell Not Reportable 11/27/16 17:00 Elliptocytes Not Reportable 11/27/16 17:00 Acanthocytes (Spur) Not Reportable 11/27/16 17:00 Rouleaux Not Reportable 11/27/16 17:00 Hemoglobin C Crystals Not Reportable 11/27/16 17:00 Schistocytes Not Reportable 11/27/16 17:00 Malaria parasites Not Reportable 11/27/16 17:00 Michael Bodies Not Reportable 11/27/16 17:00 Hem Pathologist Commnt No 11/27/16 17:00 PT 23.9 Sec. (12.2-14.9) H 11/30/16 17:15 INR 2.13 (0.87-1.13) H 11/30/16 17:15 APTT 62.0 Sec. (24.2-36.6) H* 12/04/16 Unknown Fibrinogen 474 mg/dl (211-480) 11/27/16 23:00 Heparin Anti-Xa Level 0.14 U.I./ml (0.3-0.7) L 11/30/16 Unknown Heparin Anti-Xa, Unfract Negative (Negative) 11/30/16 Unknown Sodium 141 mmol/L (137-145) 12/07/16 06:32 Potassium 4.1 mmol/L (3.6-5.0) D 12/07/16 06:32 Chloride 100.6 mmol/L (98-107) 12/07/16 06:32 Carbon Dioxide 26 mmol/L (22-30) 12/07/16 06:32 Anion Gap 19 mmol/L 12/07/16 06:32 BUN 4 mg/dL (9-20) L 12/07/16 06:32 Creatinine 0.2 mg/dL (0.8-1.5) L 12/07/16 06:32 Estimated GFR > 60 ml/min 12/07/16 06:32 BUN/Creatinine Ratio 20.00 % 12/07/16 06:32 Glucose 90 mg/dL (75-100) 12/07/16 06:32 POC Glucose 142 (70-105) H 12/08/16 19:47 Calcium 8.7 mg/dL (8.4-10.2) 12/07/16 06:32 Total Bilirubin 0.3 mg/dL (0.1-1.2) 12/07/16 06:32 Direct Bilirubin 0.2 mg/dL (0-0.2) 11/30/16 04:18 Indirect Bilirubin 0.5 mg/dL 11/30/16 04:18 AST 12 units/L (5-40) 12/07/16 06:32 ALT 21 units/L (7-56) 12/07/16 06:32 Alkaline Phosphatase 83 units/L (35-129) 12/07/16 06:32 Total Protein 6.2 g/dL (6.3-8.2) L 12/07/16 06:32 Albumin 2.9 g/dL (3.9-5) L 12/07/16 06:32 Albumin/Globulin Ratio 0.9 % 12/07/16 06:32 Serotonin Release Assay See scanned report 11/30/16 Unknown Urine Color Yellow (Yellow) 11/30/16 Unknown Urine Turbidity Slightly-cloudy (Clear) 11/30/16 Unknown Urine pH 5.0 (5.0-7.0) 11/30/16 Unknown Ur Specific [place] 1.020 (1.003-1.030) 11/30/16 Unknown Urine Protein 30 mg/dl mg/dL (Negative) 11/30/16 Unknown Urine Glucose (UA) Neg mg/dL (Negative) 11/30/16 Unknown Urine Ketones Neg mg/dL (Negative) 11/30/16 Unknown Urine Blood Sm (Negative) 11/30/16 Unknown Urine Nitrite Neg (Negative) 11/30/16 Unknown Urine Bilirubin Neg (Negative) 11/30/16 Unknown Urine Urobilinogen 2.0 mg/dL (<2.0) 11/30/16 Unknown Ur Leukocyte Esterase Sm (Negative) 11/30/16 Unknown Urine WBC (Auto) 19.0 /HPF (0.0-6.0) H 11/30/16 Unknown Urine RBC (Auto) 5.0 /HPF (0.0-6.0) 11/30/16 Unknown U Epithel Cells (Auto) < 1.0 /HPF (0-13.0) 11/30/16 Unknown Uric Acid Crystals 1+ 11/30/16 Unknown Urine Mucus 1+ /HPF 11/30/16 Unknown Heparin-induced Plt Ab Negative (Negative) 11/30/16 Unknown UF Heparin High Dose 0 % Release (()) 11/30/16 Unknown MIKA UFH Low Dose 0.1 1 % Release (()) 11/30/16 Unknown MIKA UFH Low Dose 0.5 0 % Release (()) 11/30/16 Unknown Blood Type O POSITIVE 11/27/16 02:58 Antibody Screen Negative 11/27/16 02:58
[2016-12-10] MEDS: ROXICODONE PO PRN ×4 (00:33→22:50)
[2016-12-10] MEDS: PERCOCET 5/325 PO PRN ×4 (00:34→22:51)
[2016-12-10] MEDS: NOVOLOG SUB-Q SCH ×4 (00:34→17:28)
[2016-12-10] MEDS: DOLOPHINE PO SCH (10:55)
[2016-12-10] MEDS: PEPCID PO SCH ×2 (10:56→22:44)
[2016-12-10] MEDS: ELIQUIS PO SCH ×2 (10:56→22:44)
[2016-12-10] MEDS: NYSTOP TP SCH (12:20)
[2016-12-10] MEDS: MORPHINE IV PRN (12:30)
--- NOTE | 2016-12-10 13:48 | Progress Note ---
Assessment and Plan Assessment and plan: 1. Bilateral pulmonary emboli with saddle emboli with pulmonary hypertension - s /p EKOS, thrombectomy, IVC filter placement; echo 11/2016: EF 45-50%, RA/RV moderately dilated, RVSP 65mmHg; bilateral venous ultrasound negative for dvt; cotn on eliquis as HIT antibody negative; hematology f/u appreciated 2. Diabetes 2- cont insulin sliding scale; 3. Debility - PT eval 4. DVT prophylaxis- cont eliquis awaiting SNF placement History Interval history: f/u bilateral PE\; psoas abscess Patient seen at the bedside; no complaints today; Hospitalist Physical - Constitutional Vitals: Temp Pulse Resp BP Pulse Ox 98.5 F 82 20 109/80 97 12/10/16 11:44 12/10/16 11:44 12/10/16 12:30 12/10/16 11:44 12/10/16 11:44 General appearance: Present: no acute distress, obese (morbid) - EENT Eyes: Present: PERRL, EOM intact. Absent: scleral icterus, conjunctival injection ENT: hearing intact, clear oral mucosa, no oropharyngeal erythema, no poor dentition - Neck Neck: Present: supple, normal ROM. Absent: enlarged thyroid, masses or JVD - Respiratory Respiratory effort: normal Respiratory: negative: diminished, rales, rhonchi, wheezing - Cardiovascular Rhythm: regular Heart Sounds: Present: S1 & S2. Absent: gallop - Extremities Extremities: no ischemia, pulses intact, pulses symmetrical, No edema Peripheral Pulses: within normal limits - Abdominal General gastrointestinal: soft, non-tender, non-distended, normal bowel sounds - Integumentary Integumentary: Present: clear - Psychiatric Psychiatric: appropriate mood/affect, intact judgment & insight, cooperative - Neurologic Neurologic: CNII-XII intact, moves all extremities Results - Labs CBC & Chem 7: 12/07/16 06:32 12/07/16 06:32 Labs: Laboratory Last Values WBC 5.3 K/mm3 (4.5-11.0) 12/07/16 06:32 RBC 3.97 M/mm3 (3.65-5.03) 12/07/16 06:32 Hgb 10.4 gm/dl (11.8-15.2) L 12/07/16 06:32 Hct 32.1 % (35.5-45.6) L 12/07/16 06:32 MCV 81 fl (84-94) L 12/07/16 06:32 MCH 26 pg (28-32) L 12/07/16 06:32 MCHC 33 % (32-34) 12/07/16 06:32 RDW 17.3 % (13.2-15.2) H 12/07/16 06:32 Plt Count 331 K/mm3 (140-440) 12/07/16 06:32 Lymph % (Auto) 32.8 % (13.4-35.0) 12/07/16 06:32 [place] % (Auto) 11.5 % (0.0-7.3) H 12/07/16 06:32 Eos % (Auto) 3.9 % (0.0-4.3) 12/07/16 06:32 Baso % (Auto) 0.9 % (0.0-1.8) 12/07/16 06:32 Lymph # 1.7 K/mm3 (1.2-5.4) 12/07/16 06:32 [place] # 0.6 K/mm3 (0.0-0.8) 12/07/16 06:32 Eos # 0.2 K/mm3 (0.0-0.4) 12/07/16 06:32 Baso # 0.0 K/mm3 (0.0-0.1) 12/07/16 06:32 Add Manual Diff Complete 11/27/16 17:00 Total Counted 100 11/27/16 17:00 Seg Neutrophils % 50.9 % (40.0-70.0) 12/07/16 06:32 Seg Neuts % (Manual) 80.0 % (40.0-70.0) H 11/27/16 17:00 Band Neutrophils % 0 % 11/27/16 17:00 Lymphocytes % (Manual) 9.0 % (13.4-35.0) L 11/27/16 17:00 Reactive Lymphs % (Man) 0 % 11/27/16 17:00 Monocytes % (Manual) 9.0 % (0.0-7.3) H 11/27/16 17:00 Eosinophils % (Manual) 0 % (0.0-4.3) 11/27/16 17:00 Basophils % (Manual) 0 % (0.0-1.8) 11/27/16 17:00 Metamyelocytes % 2.0 % 11/27/16 17:00 Myelocytes % 0 % 11/27/16 17:00 Promyelocytes % 0 % 11/27/16 17:00 Blast Cells % 0 % 11/27/16 17:00 Nucleated RBC % Not Reportable 11/27/16 17:00 Seg Neutrophils # 2.7 K/mm3 (1.8-7.7) 12/07/16 06:32 Seg Neutrophils # Man 7.7 K/mm3 (1.8-7.7) 11/27/16 17:00 Band Neutrophils # 0.0 K/mm3 11/27/16 17:00 Lymphocytes # (Manual) 0.9 K/mm3 (1.2-5.4) L 11/27/16 17:00 Abs React Lymphs (Man) 0.0 K/mm3 11/27/16 17:00 Monocytes # (Manual) 0.9 K/mm3 (0.0-0.8) H 11/27/16 17:00 Eosinophils # (Manual) 0.0 K/mm3 (0.0-0.4) 11/27/16 17:00 Basophils # (Manual) 0.0 K/mm3 (0.0-0.1) 11/27/16 17:00 Metamyelocytes # 0.2 K/mm3 11/27/16 17:00 Myelocytes # 0.0 K/mm3 11/27/16 17:00 Promyelocytes # 0.0 K/mm3 11/27/16 17:00 Blast Cells # 0.0 K/mm3 11/27/16 17:00 WBC Morphology Not Reportable 11/27/16 17:00 Hypersegmented Neuts Not Reportable 11/27/16 17:00 Hyposegmented Neuts Not Reportable 11/27/16 17:00 Hypogranular Neuts Not Reportable 11/27/16 17:00 Smudge Cells Not Reportable 11/27/16 17:00 Toxic Granulation Not Reportable 11/27/16 17:00 Toxic Vacuolation Not Reportable 11/27/16 17:00 Dohle Bodies Not Reportable 11/27/16 17:00 Pelger-Huet Anomaly Not Reportable 11/27/16 17:00 Mati Rods Not Reportable 11/27/16 17:00 Platelet Estimate Consistent w auto 11/27/16 17:00 Clumped Platelets Not Reportable 11/27/16 17:00 Plt Clumps, EDTA Not Reportable 11/27/16 17:00 Large Platelets Not Reportable 11/27/16 17:00 Giant Platelets Not Reportable 11/27/16 17:00 Platelet Satelliting Not Reportable 11/27/16 17:00 Plt Morphology Comment Not Reportable 11/27/16 17:00 RBC Morphology Not Reportable 11/27/16 17:00 Dimorphic RBCs Not Reportable 11/27/16 17:00 Polychromasia Not Reportable 11/27/16 17:00 Hypochromasia Not Reportable 11/27/16 17:00 Poikilocytosis Not Reportable 11/27/16 17:00 Anisocytosis 1+ 11/27/16 17:00 Microcytosis Not Reportable 11/27/16 17:00 Macrocytosis Not Reportable 11/27/16 17:00 Spherocytes Not Reportable 11/27/16 17:00 Pappenheimer Bodies Not Reportable 11/27/16 17:00 Sickle Cells Not Reportable 11/27/16 17:00 Target Cells Not Reportable 11/27/16 17:00 Tear Drop Cells Not Reportable 11/27/16 17:00 Ovalocytes Not Reportable 11/27/16 17:00 Helmet Cells Not Reportable 11/27/16 17:00 Serrato-Severn Bodies Not Reportable 11/27/16 17:00 [place] Rings Not Reportable 11/27/16 17:00 [place] Cells Not Reportable 11/27/16 17:00 Bite Cells Not Reportable 11/27/16 17:00 Crenated Cell Not Reportable 11/27/16 17:00 Elliptocytes Not Reportable 11/27/16 17:00 Acanthocytes (Spur) Not Reportable 11/27/16 17:00 Rouleaux Not Reportable 11/27/16 17:00 Hemoglobin C Crystals Not Reportable 11/27/16 17:00 Schistocytes Not Reportable 11/27/16 17:00 Malaria parasites Not Reportable 11/27/16 17:00 Michael Bodies Not Reportable 11/27/16 17:00 Hem Pathologist Commnt No 11/27/16 17:00 PT 23.9 Sec. (12.2-14.9) H 11/30/16 17:15 INR 2.13 (0.87-1.13) H 11/30/16 17:15 APTT 62.0 Sec. (24.2-36.6) H* 12/04/16 Unknown Fibrinogen 474 mg/dl (211-480) 11/27/16 23:00 Heparin Anti-Xa Level 0.14 U.I./ml (0.3-0.7) L 11/30/16 Unknown Heparin Anti-Xa, Unfract Negative (Negative) 11/30/16 Unknown Sodium 141 mmol/L (137-145) 12/07/16 06:32 Potassium 4.1 mmol/L (3.6-5.0) D 12/07/16 06:32 Chloride 100.6 mmol/L (98-107) 12/07/16 06:32 Carbon Dioxide 26 mmol/L (22-30) 12/07/16 06:32 Anion Gap 19 mmol/L 12/07/16 06:32 BUN 4 mg/dL (9-20) L 12/07/16 06:32 Creatinine 0.2 mg/dL (0.8-1.5) L 12/07/16 06:32 Estimated GFR > 60 ml/min 12/07/16 06:32 BUN/Creatinine Ratio 20.00 % 12/07/16 06:32 Glucose 90 mg/dL (75-100) 12/07/16 06:32 POC Glucose 150 (70-105) H 12/10/16 08:14 Calcium 8.7 mg/dL (8.4-10.2) 12/07/16 06:32 Total Bilirubin 0.3 mg/dL (0.1-1.2) 12/07/16 06:32 Direct Bilirubin 0.2 mg/dL (0-0.2) 11/30/16 04:18 Indirect Bilirubin 0.5 mg/dL 11/30/16 04:18 AST 12 units/L (5-40) 12/07/16 06:32 ALT 21 units/L (7-56) 12/07/16 06:32 Alkaline Phosphatase 83 units/L (35-129) 12/07/16 06:32 Total Protein 6.2 g/dL (6.3-8.2) L 12/07/16 06:32 Albumin 2.9 g/dL (3.9-5) L 12/07/16 06:32 Albumin/Globulin Ratio 0.9 % 12/07/16 06:32 Serotonin Release Assay See scanned report 11/30/16 Unknown Urine Color Yellow (Yellow) 11/30/16 Unknown Urine Turbidity Slightly-cloudy (Clear) 11/30/16 Unknown Urine pH 5.0 (5.0-7.0) 11/30/16 Unknown Ur Specific [place] 1.020 (1.003-1.030) 11/30/16 Unknown Urine Protein 30 mg/dl mg/dL (Negative) 11/30/16 Unknown Urine Glucose (UA) Neg mg/dL (Negative) 11/30/16 Unknown Urine Ketones Neg mg/dL (Negative) 11/30/16 Unknown Urine Blood Sm (Negative) 11/30/16 Unknown Urine Nitrite Neg (Negative) 11/30/16 Unknown Urine Bilirubin Neg (Negative) 11/30/16 Unknown Urine Urobilinogen 2.0 mg/dL (<2.0) 11/30/16 Unknown Ur Leukocyte Esterase Sm (Negative) 11/30/16 Unknown Urine WBC (Auto) 19.0 /HPF (0.0-6.0) H 11/30/16 Unknown Urine RBC (Auto) 5.0 /HPF (0.0-6.0) 11/30/16 Unknown U Epithel Cells (Auto) < 1.0 /HPF (0-13.0) 11/30/16 Unknown Uric Acid Crystals 1+ 11/30/16 Unknown Urine Mucus 1+ /HPF 11/30/16 Unknown Heparin-induced Plt Ab Negative (Negative) 11/30/16 Unknown UF Heparin High Dose 0 % Release (()) 11/30/16 Unknown MIKA UFH Low Dose 0.1 1 % Release (()) 11/30/16 Unknown MIKA UFH Low Dose 0.5 0 % Release (()) 11/30/16 Unknown Blood Type O POSITIVE 11/27/16 02:58 Antibody Screen Negative 11/27/16 02:58
[2016-12-10] MEDS: XANAX PO PRN (14:30)
[2016-12-11] MEDS: NOVOLOG SUB-Q SCH ×5 (01:53→23:32)
[2016-12-11] MEDS: NYSTOP TP SCH ×3 (01:56→22:53)
[2016-12-11] MEDS: PERCOCET 5/325 PO PRN ×3 (06:07→18:19)
[2016-12-11] MEDS: ROXICODONE PO PRN ×3 (06:08→18:20)
[2016-12-11] MEDS: DOLOPHINE PO SCH (09:12)
[2016-12-11] MEDS: ELIQUIS PO SCH ×2 (09:15→22:52)
[2016-12-11] MEDS: PEPCID PO SCH ×2 (09:16→22:52)
[2016-12-11] MEDS: XANAX PO PRN (09:17)
--- NOTE | 2016-12-11 13:11 | Progress Note ---
Assessment and Plan Assessment and plan: 1. Extensive bilateral pulmonary emboli with saddle emboli. Patient is status post bilateral EKOS catheter placement. Patient with successful EKOS catheter directed pulmonary artery thrombolytic therapy and percutaneous thrombectomy with residual thrombus in the right distal main extending into the right upper lobe. Patient also with successful IVC filter placement. IVC filter removal in 3-6 months per IR. Bilateral lower extremity Dopplers negative. HIT antibody negative. Continue eliquis. 2. Psoas abscess. Resolving. 3. Hypotension secondary to pulmonary emboli. Resolved. 4. Diabetes type 2. Continue sliding-scale insulin and Accu-Cheks. 1800 ADA diet. 5. Obesity/OHS/LIVAN. CPAP at night. 6. Acute hypoxic respiratory failure. Etiology secondary to #1. Continue supportive care. 7. Thrombocytopenia. HIT antibody negative 8. Hypokalemia. Replete potassium as needed. History Interval history: 36-year-old man with a history of hypertension, diabetes, obesity, chronic pain was transfer from [facility] to LTAC on the sixth floor. Patient was diagnosed with sepsis secondary to pneumonia, psoas abscess, MSSA bacteremia. He was in respiratory failure, he was trached. While on LTAC, the patient was tachycardic, CAT scan was done which shows extensive bilateral pulmonary emboli in the saddle emboli. The patient was started on heparin drip. Patient had successful placement of bilateral EKOS catheters into the pulmonary arteries with angiographic confirmation. No new issues overnight. Hospitalist Physical - Constitutional Vitals: Temp Pulse Resp BP Pulse Ox 98.3 F 90 20 117/66 97 12/11/16 12:07 12/11/16 12:07 12/11/16 12:07 12/11/16 12:07 12/11/16 12:07 General appearance: Present: no acute distress, obese (morbid) - EENT Eyes: Present: PERRL, EOM intact ENT: hearing intact, clear oral mucosa, dentition normal - Neck Neck: Present: supple, normal ROM - Respiratory Respiratory effort: normal Respiratory: bilateral: CTA - Cardiovascular Rhythm: regular Heart Sounds: Present: S1 & S2. Absent: gallop, rub - Extremities Extremities: no ischemia, No edema, Full ROM - Abdominal General gastrointestinal: soft, non-tender, non-distended, normal bowel sounds - Integumentary Integumentary: Present: clear, warm, dry - Neurologic Neurologic: CNII-XII intact, moves all extremities Results - Labs CBC & Chem 7: 12/07/16 06:32 12/07/16 06:32 Labs: Laboratory Last Values WBC 5.3 K/mm3 (4.5-11.0) 12/07/16 06:32 RBC 3.97 M/mm3 (3.65-5.03) 12/07/16 06:32 Hgb 10.4 gm/dl (11.8-15.2) L 12/07/16 06:32 Hct 32.1 % (35.5-45.6) L 12/07/16 06:32 MCV 81 fl (84-94) L 12/07/16 06:32 MCH 26 pg (28-32) L 12/07/16 06:32 MCHC 33 % (32-34) 12/07/16 06:32 RDW 17.3 % (13.2-15.2) H 12/07/16 06:32 Plt Count 331 K/mm3 (140-440) 12/07/16 06:32 Lymph % (Auto) 32.8 % (13.4-35.0) 12/07/16 06:32 [place] % (Auto) 11.5 % (0.0-7.3) H 12/07/16 06:32 Eos % (Auto) 3.9 % (0.0-4.3) 12/07/16 06:32 Baso % (Auto) 0.9 % (0.0-1.8) 12/07/16 06:32 Lymph # 1.7 K/mm3 (1.2-5.4) 12/07/16 06:32 [place] # 0.6 K/mm3 (0.0-0.8) 12/07/16 06:32 Eos # 0.2 K/mm3 (0.0-0.4) 12/07/16 06:32 Baso # 0.0 K/mm3 (0.0-0.1) 12/07/16 06:32 Add Manual Diff Complete 11/27/16 17:00 Total Counted 100 11/27/16 17:00 Seg Neutrophils % 50.9 % (40.0-70.0) 12/07/16 06:32 Seg Neuts % (Manual) 80.0 % (40.0-70.0) H 11/27/16 17:00 Band Neutrophils % 0 % 11/27/16 17:00 Lymphocytes % (Manual) 9.0 % (13.4-35.0) L 11/27/16 17:00 Reactive Lymphs % (Man) 0 % 11/27/16 17:00 Monocytes % (Manual) 9.0 % (0.0-7.3) H 11/27/16 17:00 Eosinophils % (Manual) 0 % (0.0-4.3) 11/27/16 17:00 Basophils % (Manual) 0 % (0.0-1.8) 11/27/16 17:00 Metamyelocytes % 2.0 % 11/27/16 17:00 Myelocytes % 0 % 11/27/16 17:00 Promyelocytes % 0 % 11/27/16 17:00 Blast Cells % 0 % 11/27/16 17:00 Nucleated RBC % Not Reportable 11/27/16 17:00 Seg Neutrophils # 2.7 K/mm3 (1.8-7.7) 12/07/16 06:32 Seg Neutrophils # Man 7.7 K/mm3 (1.8-7.7) 11/27/16 17:00 Band Neutrophils # 0.0 K/mm3 11/27/16 17:00 Lymphocytes # (Manual) 0.9 K/mm3 (1.2-5.4) L 11/27/16 17:00 Abs React Lymphs (Man) 0.0 K/mm3 11/27/16 17:00 Monocytes # (Manual) 0.9 K/mm3 (0.0-0.8) H 11/27/16 17:00 Eosinophils # (Manual) 0.0 K/mm3 (0.0-0.4) 11/27/16 17:00 Basophils # (Manual) 0.0 K/mm3 (0.0-0.1) 11/27/16 17:00 Metamyelocytes # 0.2 K/mm3 11/27/16 17:00 Myelocytes # 0.0 K/mm3 11/27/16 17:00 Promyelocytes # 0.0 K/mm3 11/27/16 17:00 Blast Cells # 0.0 K/mm3 11/27/16 17:00 WBC Morphology Not Reportable 11/27/16 17:00 Hypersegmented Neuts Not Reportable 11/27/16 17:00 Hyposegmented Neuts Not Reportable 11/27/16 17:00 Hypogranular Neuts Not Reportable 11/27/16 17:00 Smudge Cells Not Reportable 11/27/16 17:00 Toxic Granulation Not Reportable 11/27/16 17:00 Toxic Vacuolation Not Reportable 11/27/16 17:00 Dohle Bodies Not Reportable 11/27/16 17:00 Pelger-Huet Anomaly Not Reportable 11/27/16 17:00 Mati Rods Not Reportable 11/27/16 17:00 Platelet Estimate Consistent w auto 11/27/16 17:00 Clumped Platelets Not Reportable 11/27/16 17:00 Plt Clumps, EDTA Not Reportable 11/27/16 17:00 Large Platelets Not Reportable 11/27/16 17:00 Giant Platelets Not Reportable 11/27/16 17:00 Platelet Satelliting Not Reportable 11/27/16 17:00 Plt Morphology Comment Not Reportable 11/27/16 17:00 RBC Morphology Not Reportable 11/27/16 17:00 Dimorphic RBCs Not Reportable 11/27/16 17:00 Polychromasia Not Reportable 11/27/16 17:00 Hypochromasia Not Reportable 11/27/16 17:00 Poikilocytosis Not Reportable 11/27/16 17:00 Anisocytosis 1+ 11/27/16 17:00 Microcytosis Not Reportable 11/27/16 17:00 Macrocytosis Not Reportable 11/27/16 17:00 Spherocytes Not Reportable 11/27/16 17:00 Pappenheimer Bodies Not Reportable 11/27/16 17:00 Sickle Cells Not Reportable 11/27/16 17:00 Target Cells Not Reportable 11/27/16 17:00 Tear Drop Cells Not Reportable 11/27/16 17:00 Ovalocytes Not Reportable 11/27/16 17:00 Helmet Cells Not Reportable 11/27/16 17:00 Serrato-Hume Bodies Not Reportable 11/27/16 17:00 [place] Rings Not Reportable 11/27/16 17:00 [place] Cells Not Reportable 11/27/16 17:00 Bite Cells Not Reportable 11/27/16 17:00 Crenated Cell Not Reportable 11/27/16 17:00 Elliptocytes Not Reportable 11/27/16 17:00 Acanthocytes (Spur) Not Reportable 11/27/16 17:00 Rouleaux Not Reportable 11/27/16 17:00 Hemoglobin C Crystals Not Reportable 11/27/16 17:00 Schistocytes Not Reportable 11/27/16 17:00 Malaria parasites Not Reportable 11/27/16 17:00 Michael Bodies Not Reportable 11/27/16 17:00 Hem Pathologist Commnt No 11/27/16 17:00 PT 23.9 Sec. (12.2-14.9) H 11/30/16 17:15 INR 2.13 (0.87-1.13) H 11/30/16 17:15 APTT 62.0 Sec. (24.2-36.6) H* 12/04/16 Unknown Fibrinogen 474 mg/dl (211-480) 11/27/16 23:00 Heparin Anti-Xa Level 0.14 U.I./ml (0.3-0.7) L 11/30/16 Unknown Heparin Anti-Xa, Unfract Negative (Negative) 11/30/16 Unknown Sodium 141 mmol/L (137-145) 12/07/16 06:32 Potassium 4.1 mmol/L (3.6-5.0) D 12/07/16 06:32 Chloride 100.6 mmol/L (98-107) 12/07/16 06:32 Carbon Dioxide 26 mmol/L (22-30) 12/07/16 06:32 Anion Gap 19 mmol/L 12/07/16 06:32 BUN 4 mg/dL (9-20) L 12/07/16 06:32 Creatinine 0.2 mg/dL (0.8-1.5) L 12/07/16 06:32 Estimated GFR > 60 ml/min 12/07/16 06:32 BUN/Creatinine Ratio 20.00 % 12/07/16 06:32 Glucose 90 mg/dL (75-100) 12/07/16 06:32 POC Glucose 116 (70-105) H 12/10/16 21:59 Calcium 8.7 mg/dL (8.4-10.2) 12/07/16 06:32 Total Bilirubin 0.3 mg/dL (0.1-1.2) 12/07/16 06:32 Direct Bilirubin 0.2 mg/dL (0-0.2) 11/30/16 04:18 Indirect Bilirubin 0.5 mg/dL 11/30/16 04:18 AST 12 units/L (5-40) 12/07/16 06:32 ALT 21 units/L (7-56) 12/07/16 06:32 Alkaline Phosphatase 83 units/L (35-129) 12/07/16 06:32 Total Protein 6.2 g/dL (6.3-8.2) L 12/07/16 06:32 Albumin 2.9 g/dL (3.9-5) L 12/07/16 06:32 Albumin/Globulin Ratio 0.9 % 12/07/16 06:32 Serotonin Release Assay See scanned report 11/30/16 Unknown Urine Color Yellow (Yellow) 11/30/16 Unknown Urine Turbidity Slightly-cloudy (Clear) 11/30/16 Unknown Urine pH 5.0 (5.0-7.0) 11/30/16 Unknown Ur Specific [place] 1.020 (1.003-1.030) 11/30/16 Unknown Urine Protein 30 mg/dl mg/dL (Negative) 11/30/16 Unknown Urine Glucose (UA) Neg mg/dL (Negative) 11/30/16 Unknown Urine Ketones Neg mg/dL (Negative) 11/30/16 Unknown Urine Blood Sm (Negative) 11/30/16 Unknown Urine Nitrite Neg (Negative) 11/30/16 Unknown Urine Bilirubin Neg (Negative) 11/30/16 Unknown Urine Urobilinogen 2.0 mg/dL (<2.0) 11/30/16 Unknown Ur Leukocyte Esterase Sm (Negative) 11/30/16 Unknown Urine WBC (Auto) 19.0 /HPF (0.0-6.0) H 11/30/16 Unknown Urine RBC (Auto) 5.0 /HPF (0.0-6.0) 11/30/16 Unknown U Epithel Cells (Auto) < 1.0 /HPF (0-13.0) 11/30/16 Unknown Uric Acid Crystals 1+ 11/30/16 Unknown Urine Mucus 1+ /HPF 11/30/16 Unknown Heparin-induced Plt Ab Negative (Negative) 11/30/16 Unknown UF Heparin High Dose 0 % Release (()) 11/30/16 Unknown MIKA UFH Low Dose 0.1 1 % Release (()) 11/30/16 Unknown MIKA UFH Low Dose 0.5 0 % Release (()) 11/30/16 Unknown Blood Type O POSITIVE 11/27/16 02:58 Antibody Screen Negative 11/27/16 02:58
[2016-12-11] MEDS: NORCO 5/325 PO PRN (23:31)
[2016-12-12] MEDS: PERCOCET 5/325 PO PRN ×3 (04:53→21:42)
[2016-12-12] MEDS: ROXICODONE PO PRN ×3 (04:54→21:43)
[2016-12-12] MEDS: NOVOLOG SUB-Q SCH ×3 (09:53→21:29)
[2016-12-12] MEDS: DOLOPHINE PO SCH (11:51)
[2016-12-12] MEDS: PEPCID PO SCH ×2 (11:52→21:42)
[2016-12-12] MEDS: ELIQUIS PO SCH ×2 (11:52→21:42)
[2016-12-12] MEDS: NYSTOP TP SCH ×2 (11:54→21:45)
--- NOTE | 2016-12-12 11:55 | Progress Note ---
Assessment and Plan Assessment and plan: 1. Extensive bilateral pulmonary emboli with saddle emboli. Patient is status post bilateral EKOS catheter placement. Patient with successful EKOS catheter directed pulmonary artery thrombolytic therapy and percutaneous thrombectomy with residual thrombus in the right distal main extending into the right upper lobe. Patient also with successful IVC filter placement. IVC filter removal in 3-6 months per IR. Bilateral lower extremity Dopplers negative. HIT antibody negative. Continue eliquis. 2. Psoas abscess. Resolving. Patient complaining of lower back pain. Check lumbar spine films. 3. Hypotension secondary to pulmonary emboli. Resolved. 4. Diabetes type 2. Continue sliding-scale insulin and Accu-Cheks. 1800 ADA diet. 5. Obesity/OHS/LIVAN. CPAP at night. 6. Acute hypoxic respiratory failure. Etiology secondary to #1. Continue supportive care. 7. Thrombocytopenia. HIT antibody negative 8. Hypokalemia. Replete potassium as needed. History Interval history: 36-year-old man with a history of hypertension, diabetes, obesity, chronic pain was transfer from [facility] to LTAC on the sixth floor. Patient was diagnosed with sepsis secondary to pneumonia, psoas abscess, MSSA bacteremia. He was in respiratory failure, he was trached. While on LTAC, the patient was tachycardic, CAT scan was done which shows extensive bilateral pulmonary emboli in the saddle emboli. Patient has received appropriate anticoagulation. Patient had successful placement of bilateral EKOS catheters into the pulmonary arteries with angiographic confirmation. No new issues overnight. Patient complains of low back pain. No other new complaints. Hospitalist Physical - Constitutional Vitals: Temp Pulse Resp BP Pulse Ox 98.0 F 90 20 127/79 97 12/12/16 09:11 12/12/16 09:11 12/12/16 11:51 12/12/16 09:11 12/12/16 09:11 General appearance: Present: no acute distress, obese (morbid) - EENT Eyes: Present: PERRL, EOM intact ENT: hearing intact, clear oral mucosa, dentition normal - Neck Neck: Present: supple, normal ROM - Respiratory Respiratory effort: normal Respiratory: bilateral: CTA - Cardiovascular Rhythm: regular Heart Sounds: Present: S1 & S2. Absent: gallop, rub - Extremities Extremities: no ischemia, No edema, Full ROM - Abdominal General gastrointestinal: soft, non-tender, non-distended, normal bowel sounds - Integumentary Integumentary: Present: clear, warm, dry - Neurologic Neurologic: CNII-XII intact, moves all extremities Results - Labs CBC & Chem 7: 12/07/16 06:32 12/07/16 06:32 Labs: Laboratory Last Values WBC 5.3 K/mm3 (4.5-11.0) 12/07/16 06:32 RBC 3.97 M/mm3 (3.65-5.03) 12/07/16 06:32 Hgb 10.4 gm/dl (11.8-15.2) L 12/07/16 06:32 Hct 32.1 % (35.5-45.6) L 12/07/16 06:32 MCV 81 fl (84-94) L 12/07/16 06:32 MCH 26 pg (28-32) L 12/07/16 06:32 MCHC 33 % (32-34) 12/07/16 06:32 RDW 17.3 % (13.2-15.2) H 12/07/16 06:32 Plt Count 331 K/mm3 (140-440) 12/07/16 06:32 Lymph % (Auto) 32.8 % (13.4-35.0) 12/07/16 06:32 [place] % (Auto) 11.5 % (0.0-7.3) H 12/07/16 06:32 Eos % (Auto) 3.9 % (0.0-4.3) 12/07/16 06:32 Baso % (Auto) 0.9 % (0.0-1.8) 12/07/16 06:32 Lymph # 1.7 K/mm3 (1.2-5.4) 12/07/16 06:32 [place] # 0.6 K/mm3 (0.0-0.8) 12/07/16 06:32 Eos # 0.2 K/mm3 (0.0-0.4) 12/07/16 06:32 Baso # 0.0 K/mm3 (0.0-0.1) 12/07/16 06:32 Add Manual Diff Complete 11/27/16 17:00 Total Counted 100 11/27/16 17:00 Seg Neutrophils % 50.9 % (40.0-70.0) 12/07/16 06:32 Seg Neuts % (Manual) 80.0 % (40.0-70.0) H 11/27/16 17:00 Band Neutrophils % 0 % 11/27/16 17:00 Lymphocytes % (Manual) 9.0 % (13.4-35.0) L 11/27/16 17:00 Reactive Lymphs % (Man) 0 % 11/27/16 17:00 Monocytes % (Manual) 9.0 % (0.0-7.3) H 11/27/16 17:00 Eosinophils % (Manual) 0 % (0.0-4.3) 11/27/16 17:00 Basophils % (Manual) 0 % (0.0-1.8) 11/27/16 17:00 Metamyelocytes % 2.0 % 11/27/16 17:00 Myelocytes % 0 % 11/27/16 17:00 Promyelocytes % 0 % 11/27/16 17:00 Blast Cells % 0 % 11/27/16 17:00 Nucleated RBC % Not Reportable 11/27/16 17:00 Seg Neutrophils # 2.7 K/mm3 (1.8-7.7) 12/07/16 06:32 Seg Neutrophils # Man 7.7 K/mm3 (1.8-7.7) 11/27/16 17:00 Band Neutrophils # 0.0 K/mm3 11/27/16 17:00 Lymphocytes # (Manual) 0.9 K/mm3 (1.2-5.4) L 11/27/16 17:00 Abs React Lymphs (Man) 0.0 K/mm3 11/27/16 17:00 Monocytes # (Manual) 0.9 K/mm3 (0.0-0.8) H 11/27/16 17:00 Eosinophils # (Manual) 0.0 K/mm3 (0.0-0.4) 11/27/16 17:00 Basophils # (Manual) 0.0 K/mm3 (0.0-0.1) 11/27/16 17:00 Metamyelocytes # 0.2 K/mm3 11/27/16 17:00 Myelocytes # 0.0 K/mm3 11/27/16 17:00 Promyelocytes # 0.0 K/mm3 11/27/16 17:00 Blast Cells # 0.0 K/mm3 11/27/16 17:00 WBC Morphology Not Reportable 11/27/16 17:00 Hypersegmented Neuts Not Reportable 11/27/16 17:00 Hyposegmented Neuts Not Reportable 11/27/16 17:00 Hypogranular Neuts Not Reportable 11/27/16 17:00 Smudge Cells Not Reportable 11/27/16 17:00 Toxic Granulation Not Reportable 11/27/16 17:00 Toxic Vacuolation Not Reportable 11/27/16 17:00 Dohle Bodies Not Reportable 11/27/16 17:00 Pelger-Huet Anomaly Not Reportable 11/27/16 17:00 Mati Rods Not Reportable 11/27/16 17:00 Platelet Estimate Consistent w auto 11/27/16 17:00 Clumped Platelets Not Reportable 11/27/16 17:00 Plt Clumps, EDTA Not Reportable 11/27/16 17:00 Large Platelets Not Reportable 11/27/16 17:00 Giant Platelets Not Reportable 11/27/16 17:00 Platelet Satelliting Not Reportable 11/27/16 17:00 Plt Morphology Comment Not Reportable 11/27/16 17:00 RBC Morphology Not Reportable 11/27/16 17:00 Dimorphic RBCs Not Reportable 11/27/16 17:00 Polychromasia Not Reportable 11/27/16 17:00 Hypochromasia Not Reportable 11/27/16 17:00 Poikilocytosis Not Reportable 11/27/16 17:00 Anisocytosis 1+ 11/27/16 17:00 Microcytosis Not Reportable 11/27/16 17:00 Macrocytosis Not Reportable 11/27/16 17:00 Spherocytes Not Reportable 11/27/16 17:00 Pappenheimer Bodies Not Reportable 11/27/16 17:00 Sickle Cells Not Reportable 11/27/16 17:00 Target Cells Not Reportable 11/27/16 17:00 Tear Drop Cells Not Reportable 11/27/16 17:00 Ovalocytes Not Reportable 11/27/16 17:00 Helmet Cells Not Reportable 11/27/16 17:00 Serrato-[place] Bodies Not Reportable 11/27/16 17:00 [place] Rings Not Reportable 11/27/16 17:00 William Cells Not Reportable 11/27/16 17:00 Bite Cells Not Reportable 11/27/16 17:00 Crenated Cell Not Reportable 11/27/16 17:00 Elliptocytes Not Reportable 11/27/16 17:00 Acanthocytes (Spur) Not Reportable 11/27/16 17:00 Rouleaux Not Reportable 11/27/16 17:00 Hemoglobin C Crystals Not Reportable 11/27/16 17:00 Schistocytes Not Reportable 11/27/16 17:00 Malaria parasites Not Reportable 11/27/16 17:00 Michael Bodies Not Reportable 11/27/16 17:00 Hem Pathologist Commnt No 11/27/16 17:00 PT 23.9 Sec. (12.2-14.9) H 11/30/16 17:15 INR 2.13 (0.87-1.13) H 11/30/16 17:15 APTT 62.0 Sec. (24.2-36.6) H* 12/04/16 Unknown Fibrinogen 474 mg/dl (211-480) 11/27/16 23:00 Heparin Anti-Xa Level 0.14 U.I./ml (0.3-0.7) L 11/30/16 Unknown Heparin Anti-Xa, Unfract Negative (Negative) 11/30/16 Unknown Sodium 141 mmol/L (137-145) 12/07/16 06:32 Potassium 4.1 mmol/L (3.6-5.0) D 12/07/16 06:32 Chloride 100.6 mmol/L (98-107) 12/07/16 06:32 Carbon Dioxide 26 mmol/L (22-30) 12/07/16 06:32 Anion Gap 19 mmol/L 12/07/16 06:32 BUN 4 mg/dL (9-20) L 12/07/16 06:32 Creatinine 0.2 mg/dL (0.8-1.5) L 12/07/16 06:32 Estimated GFR > 60 ml/min 12/07/16 06:32 BUN/Creatinine Ratio 20.00 % 12/07/16 06:32 Glucose 90 mg/dL (75-100) 12/07/16 06:32 POC Glucose 154 (70-105) H 12/11/16 23:23 Calcium 8.7 mg/dL (8.4-10.2) 12/07/16 06:32 Total Bilirubin 0.3 mg/dL (0.1-1.2) 12/07/16 06:32 Direct Bilirubin 0.2 mg/dL (0-0.2) 11/30/16 04:18 Indirect Bilirubin 0.5 mg/dL 11/30/16 04:18 AST 12 units/L (5-40) 12/07/16 06:32 ALT 21 units/L (7-56) 12/07/16 06:32 Alkaline Phosphatase 83 units/L (35-129) 12/07/16 06:32 Total Protein 6.2 g/dL (6.3-8.2) L 12/07/16 06:32 Albumin 2.9 g/dL (3.9-5) L 12/07/16 06:32 Albumin/Globulin Ratio 0.9 % 12/07/16 06:32 Serotonin Release Assay See scanned report 11/30/16 Unknown Urine Color Yellow (Yellow) 11/30/16 Unknown Urine Turbidity Slightly-cloudy (Clear) 11/30/16 Unknown Urine pH 5.0 (5.0-7.0) 11/30/16 Unknown Ur Specific [place] 1.020 (1.003-1.030) 11/30/16 Unknown Urine Protein 30 mg/dl mg/dL (Negative) 11/30/16 Unknown Urine Glucose (UA) Neg mg/dL (Negative) 11/30/16 Unknown Urine Ketones Neg mg/dL (Negative) 11/30/16 Unknown Urine Blood Sm (Negative) 11/30/16 Unknown Urine Nitrite Neg (Negative) 11/30/16 Unknown Urine Bilirubin Neg (Negative) 11/30/16 Unknown Urine Urobilinogen 2.0 mg/dL (<2.0) 11/30/16 Unknown Ur Leukocyte Esterase Sm (Negative) 11/30/16 Unknown Urine WBC (Auto) 19.0 /HPF (0.0-6.0) H 11/30/16 Unknown Urine RBC (Auto) 5.0 /HPF (0.0-6.0) 11/30/16 Unknown U Epithel Cells (Auto) < 1.0 /HPF (0-13.0) 11/30/16 Unknown Uric Acid Crystals 1+ 11/30/16 Unknown Urine Mucus 1+ /HPF 11/30/16 Unknown Heparin-induced Plt Ab Negative (Negative) 11/30/16 Unknown UF Heparin High Dose 0 % Release (()) 11/30/16 Unknown MIKA UFH Low Dose 0.1 1 % Release (()) 11/30/16 Unknown MIKA UFH Low Dose 0.5 0 % Release (()) 11/30/16 Unknown Blood Type O POSITIVE 11/27/16 02:58 Antibody Screen Negative 11/27/16 02:58
--- NOTE | 2016-12-12 15:10 | XRay Report ---
LUMBOSACRAL SPINE, 5 VIEWS: HISTORY: Low back pain. FINDINGS: Compared to 11/20/16. Bone mineralization is normal. Superior endplate deformity versus degenerative change at T12 is again noted. There is no evidence for new compression deformity, bone lesion or subluxation. Mild disc space narrowing and facet arthropathy are noted at L4-5 and L5-S1. The oblique images demonstrate widely patent neural foramen and no evidence for pars defect. A vena cava filter is in place at the L2-3 level. The sacrum and SI joints remain unremarkable. IMPRESSION: Mild lumbar spondylosis. Superior endplate deformity versus degenerative change at T12. No change since 11/20/16.
[2016-12-12] MEDS: XANAX PO PRN (21:42)
[2016-12-13] MEDS: PERCOCET 5/325 PO PRN ×4 (03:28→21:34)
[2016-12-13] MEDS: ROXICODONE PO PRN ×4 (03:28→21:34)
[2016-12-13] MEDS: NOVOLOG SUB-Q SCH ×4 (08:10→21:36)
[2016-12-13] MEDS: DOLOPHINE PO SCH (09:54)
[2016-12-13] MEDS: NYSTOP TP SCH ×2 (09:55→21:35)
[2016-12-13] MEDS: PEPCID PO SCH ×2 (09:55→21:33)
[2016-12-13] MEDS: MIRALAX 3350 PO PRN (10:06)
--- NOTE | 2016-12-13 10:17 | Discharge Summary ---
Providers - Providers Date of Admission: 11/26/16 23:45 Date of discharge: 12/13/16 Attending physician: TWYLA TURNER 12/02/16 08:20 Consult to Physician [CONS] Routine Consulting Provider: SARAHY TANG Reason For Exam: thrombocytopenia Place consult to:: Dr. Tang Notified:: Padmini RN Phone number called:: Was contact made?: Yes If yes, spoke with:: [facility] Time called:: 09:03 12/04/16 14:41 Consult to Wound/ET Nurse [CONS] Routine Reason For Exam: wound eval 11/27/16 01:34 Consult to Physician [CONS] Urgent Consulting Provider: NIMESH COLLINS Reason For Exam: saddle emboli Notified:: josselyn 11/27/16 08:00 Consult to Wound/ET Nurse [CONS] Stat Reason For Exam: wound eval-POA wound sacrum-per protocol 11/30/16 09:32 Consult to Physician [CONS] Routine Consulting Provider: JAZMINE DE LA TORRE Reason For Exam: thrombocytopenia Place consult to:: answering service Notified:: yes Phone number called:: [phone] If yes, spoke with:: campos Time called:: 09:53 12/01/16 13:00 Physical Therapy Evaluation and Treat [CONS] Routine Comment: Reason For Exam: rehab eval Primary care physician: PARMJIT BARAHONA Hospitalization Reason for admission: PE Hospital course: The patient is a 36 year old male with a history of hypertension, diabetes, chronic pain who had been admitted to [facility] for respiratory failure s/p trach. While in LTAC, he developed acute tachycardia and shortness of breath. Chest CT revealed saddle bilateral pulmonary embolus. Pt. was transferred to ICU and underwent EKOS procedure by Dr. Collins. Patient also underwent thrombectomy and IVC filter placement. Patient had echocardiogram that was done to evaluate the severity of the embolus. Echocardiogram on 11/2016 revealed EF of 45-50% with right atrium and right ventricle moderately dilated. Patient exhibited pulmonary hypertension with RVSP of 65 mmHg. Patient also underwent bilateral venous ultrasound that was found to be negative for DVT. The patient was initially treated with anticoagulation which was later wilcox due to a greater than 50% drop in platelets. Patient was later switched to argatroban. A HIT antibody was obtained and found to be negative. Patient was restarted back on eliquis. Patient was also noted to have psoas abscess present on admission. Patient was treated with antibiotics for course of more than 6 weeks. The case was discussed with Dr. Hurley who recommended discontinuation of antibiotics and no further treatment. Patient was evaluated by physical therapy and found to have general debility requiring a rehabilitation placement. Case management was consulted for SNF placement. Dedicated discharged 35 minutes. Disposition: DC/TX SNF W [facility] CERT Core Measure Documentation - Palliative Care Palliative Care/ Comfort Measures: Not Applicable - Core Measures Any of the following diagnoses?: none - VTE Discharge Requirements Deep Vein Thrombosis/Pulmonary Embolism Present on Admission: Yes Has pt received <5 days of overlap therapy or INR<2.0: No Anticoagulant overlap therapy prescribed at discharge: Yes Exam - Constitutional Vitals: Temp Pulse Resp BP Pulse Ox 98.3 F 78 20 105/69 98 12/13/16 07:27 12/13/16 07:27 12/13/16 07:27 12/13/16 07:27 12/13/16 07:27 General appearance: Present: no acute distress, well-nourished - EENT Eyes: Present: PERRL ENT: hearing intact, clear oral mucosa - Neck Neck: Present: supple, normal ROM - Respiratory Respiratory effort: normal Respiratory: bilateral: CTA - Cardiovascular Heart Sounds: Present: S1 & S2. Absent: rub, click - Extremities Extremities: pulses symmetrical, No edema Peripheral Pulses: within normal limits - Abdominal General gastrointestinal: Present: soft, non-tender, non-distended, normal bowel sounds Male genitourinary: Present: normal - Integumentary Integumentary: Present: clear, warm, dry - Musculoskeletal Musculoskeletal: gait normal, strength equal bilaterally - Psychiatric Psychiatric: appropriate mood/affect, intact judgment & insight - Neurologic Neurologic: CNII-XII intact, moves all extremities Plan Activity: advance as tolerated Weight Bearing Status: Weight Bear as Tolerated Diet: regular Prescriptions: ALPRAZolam [Xanax TAB] 0.25 mg PO Q6H PRN #30 tablet PRN Reason: Anxiety HYDROcodone/APAP 5-325 [[place] 5-325 mg TAB] 2 each PO Q6H PRN #30 tablet PRN Reason: Pain, Moderate (4-6) Methadone [Dolophine] 20 mg PO DAILY #30 tablet
[2016-12-13] MEDS: ELIQUIS PO SCH ×2 (13:39→21:33)
[2016-12-13] MEDS: MILK OF MAGNESIA PO PRN (18:05)
[2016-12-13] MEDS: XANAX PO PRN (21:33)
[2016-12-14] MEDS: ROXICODONE PO PRN ×3 (05:16→22:00)
[2016-12-14] MEDS: PERCOCET 5/325 PO PRN (05:16)
[2016-12-14] MEDS: NOVOLOG SUB-Q SCH ×3 (08:00→21:57)
[2016-12-14] MEDS: ELIQUIS PO SCH ×2 (11:40→21:57)
[2016-12-14] MEDS: DOLOPHINE PO SCH (11:40)
[2016-12-14] MEDS: PEPCID PO SCH ×2 (11:40→21:57)
[2016-12-14] MEDS: NYSTOP TP SCH ×2 (12:05→21:58)
--- NOTE | 2016-12-14 12:11 | Progress Note ---
Assessment and Plan Assessment and plan: 1. Extensive bilateral pulmonary emboli with saddle emboli. Patient is status post bilateral EKOS catheter placement. Patient with successful EKOS catheter directed pulmonary artery thrombolytic therapy and percutaneous thrombectomy with residual thrombus in the right distal main extending into the right upper lobe. Patient also with successful IVC filter placement. IVC filter removal in 3-6 months per IR. Bilateral lower extremity Dopplers negative. HIT antibody negative. Continue eliquis. 2. Psoas abscess. Resolved. 3. Hypotension secondary to pulmonary emboli. Resolved. 4. Diabetes type 2. Continue sliding-scale insulin and Accu-Cheks. 1800 ADA diet. 5. Obesity/OHS/LIVAN. CPAP at night. 6. Acute hypoxic respiratory failure. Etiology secondary to #1. Continue supportive care. 7. Thrombocytopenia. HIT antibody negative 8. Hypokalemia. Replete potassium as needed. 9. Chronic low back pain. Plain films negative. Patient unable to have MRI due to weight limit. I discussed for outpatient open MRI with patient and . 10. Disposition. Patient awaiting placement. History Interval history: 36-year-old man with a history of hypertension, diabetes, obesity, chronic pain was transfer from [facility] to [facility] on the sixth floor. Patient was diagnosed with sepsis secondary to pneumonia, psoas abscess, MSSA bacteremia. He was in respiratory failure, he was trached. While on LTAC, the patient was tachycardic, CAT scan was done which shows extensive bilateral pulmonary emboli in the saddle emboli. Patient has received appropriate anticoagulation. Patient had successful placement of bilateral EKOS catheters into the pulmonary arteries with angiographic confirmation. No new issues overnight. Patient complains of low back pain. No other new complaints. Discharge has been placed but patient is awaiting placement. Hospitalist Physical - Constitutional Vitals: Temp Pulse Resp BP Pulse Ox 98.4 F 89 20 122/72 98 12/14/16 07:47 12/14/16 07:47 12/14/16 11:40 12/14/16 07:47 12/14/16 07:47 General appearance: Present: no acute distress, well-nourished - EENT Eyes: Present: PERRL, EOM intact ENT: hearing intact, clear oral mucosa, dentition normal - Neck Neck: Present: supple, normal ROM - Respiratory Respiratory effort: normal Respiratory: bilateral: CTA - Cardiovascular Rhythm: regular Heart Sounds: Present: S1 & S2. Absent: gallop, rub - Extremities Extremities: no ischemia, No edema, Full ROM - Abdominal General gastrointestinal: soft, non-tender, non-distended, normal bowel sounds - Integumentary Integumentary: Present: clear, warm, dry - Neurologic Neurologic: CNII-XII intact, moves all extremities Results - Labs CBC & Chem 7: 12/07/16 06:32 12/07/16 06:32 Labs: Laboratory Last Values WBC 5.3 K/mm3 (4.5-11.0) 12/07/16 06:32 RBC 3.97 M/mm3 (3.65-5.03) 12/07/16 06:32 Hgb 10.4 gm/dl (11.8-15.2) L 12/07/16 06:32 Hct 32.1 % (35.5-45.6) L 12/07/16 06:32 MCV 81 fl (84-94) L 12/07/16 06:32 MCH 26 pg (28-32) L 12/07/16 06:32 MCHC 33 % (32-34) 12/07/16 06:32 RDW 17.3 % (13.2-15.2) H 12/07/16 06:32 Plt Count 331 K/mm3 (140-440) 12/07/16 06:32 Lymph % (Auto) 32.8 % (13.4-35.0) 12/07/16 06:32 [place] % (Auto) 11.5 % (0.0-7.3) H 12/07/16 06:32 Eos % (Auto) 3.9 % (0.0-4.3) 12/07/16 06:32 Baso % (Auto) 0.9 % (0.0-1.8) 12/07/16 06:32 Lymph # 1.7 K/mm3 (1.2-5.4) 12/07/16 06:32 [place] # 0.6 K/mm3 (0.0-0.8) 12/07/16 06:32 Eos # 0.2 K/mm3 (0.0-0.4) 12/07/16 06:32 Baso # 0.0 K/mm3 (0.0-0.1) 12/07/16 06:32 Add Manual Diff Complete 11/27/16 17:00 Total Counted 100 11/27/16 17:00 Seg Neutrophils % 50.9 % (40.0-70.0) 12/07/16 06:32 Seg Neuts % (Manual) 80.0 % (40.0-70.0) H 11/27/16 17:00 Band Neutrophils % 0 % 11/27/16 17:00 Lymphocytes % (Manual) 9.0 % (13.4-35.0) L 11/27/16 17:00 Reactive Lymphs % (Man) 0 % 11/27/16 17:00 Monocytes % (Manual) 9.0 % (0.0-7.3) H 11/27/16 17:00 Eosinophils % (Manual) 0 % (0.0-4.3) 11/27/16 17:00 Basophils % (Manual) 0 % (0.0-1.8) 11/27/16 17:00 Metamyelocytes % 2.0 % 11/27/16 17:00 Myelocytes % 0 % 11/27/16 17:00 Promyelocytes % 0 % 11/27/16 17:00 Blast Cells % 0 % 11/27/16 17:00 Nucleated RBC % Not Reportable 11/27/16 17:00 Seg Neutrophils # 2.7 K/mm3 (1.8-7.7) 12/07/16 06:32 Seg Neutrophils # Man 7.7 K/mm3 (1.8-7.7) 11/27/16 17:00 Band Neutrophils # 0.0 K/mm3 11/27/16 17:00 Lymphocytes # (Manual) 0.9 K/mm3 (1.2-5.4) L 11/27/16 17:00 Abs React Lymphs (Man) 0.0 K/mm3 11/27/16 17:00 Monocytes # (Manual) 0.9 K/mm3 (0.0-0.8) H 11/27/16 17:00 Eosinophils # (Manual) 0.0 K/mm3 (0.0-0.4) 11/27/16 17:00 Basophils # (Manual) 0.0 K/mm3 (0.0-0.1) 11/27/16 17:00 Metamyelocytes # 0.2 K/mm3 11/27/16 17:00 Myelocytes # 0.0 K/mm3 11/27/16 17:00 Promyelocytes # 0.0 K/mm3 11/27/16 17:00 Blast Cells # 0.0 K/mm3 11/27/16 17:00 WBC Morphology Not Reportable 11/27/16 17:00 Hypersegmented Neuts Not Reportable 11/27/16 17:00 Hyposegmented Neuts Not Reportable 11/27/16 17:00 Hypogranular Neuts Not Reportable 11/27/16 17:00 Smudge Cells Not Reportable 11/27/16 17:00 Toxic Granulation Not Reportable 11/27/16 17:00 Toxic Vacuolation Not Reportable 11/27/16 17:00 Dohle Bodies Not Reportable 11/27/16 17:00 Pelger-Huet Anomaly Not Reportable 11/27/16 17:00 Mati Rods Not Reportable 11/27/16 17:00 Platelet Estimate Consistent w auto 11/27/16 17:00 Clumped Platelets Not Reportable 11/27/16 17:00 Plt Clumps, EDTA Not Reportable 11/27/16 17:00 Large Platelets Not Reportable 11/27/16 17:00 Giant Platelets Not Reportable 11/27/16 17:00 Platelet Satelliting Not Reportable 11/27/16 17:00 Plt Morphology Comment Not Reportable 11/27/16 17:00 RBC Morphology Not Reportable 11/27/16 17:00 Dimorphic RBCs Not Reportable 11/27/16 17:00 Polychromasia Not Reportable 11/27/16 17:00 Hypochromasia Not Reportable 11/27/16 17:00 Poikilocytosis Not Reportable 11/27/16 17:00 Anisocytosis 1+ 11/27/16 17:00 Microcytosis Not Reportable 11/27/16 17:00 Macrocytosis Not Reportable 11/27/16 17:00 Spherocytes Not Reportable 11/27/16 17:00 Pappenheimer Bodies Not Reportable 11/27/16 17:00 Sickle Cells Not Reportable 11/27/16 17:00 Target Cells Not Reportable 11/27/16 17:00 Tear Drop Cells Not Reportable 11/27/16 17:00 Ovalocytes Not Reportable 11/27/16 17:00 Helmet Cells Not Reportable 11/27/16 17:00 [place] Bodies Not Reportable 11/27/16 17:00 [place] Rings Not Reportable 11/27/16 17:00 William Cells Not Reportable 11/27/16 17:00 Bite Cells Not Reportable 11/27/16 17:00 Crenated Cell Not Reportable 11/27/16 17:00 Elliptocytes Not Reportable 11/27/16 17:00 Acanthocytes (Spur) Not Reportable 11/27/16 17:00 Rouleaux Not Reportable 11/27/16 17:00 Hemoglobin C Crystals Not Reportable 11/27/16 17:00 Schistocytes Not Reportable 11/27/16 17:00 Malaria parasites Not Reportable 11/27/16 17:00 Michael Bodies Not Reportable 11/27/16 17:00 Hem Pathologist Commnt No 11/27/16 17:00 PT 23.9 Sec. (12.2-14.9) H 11/30/16 17:15 INR 2.13 (0.87-1.13) H 11/30/16 17:15 APTT 62.0 Sec. (24.2-36.6) H* 12/04/16 Unknown Fibrinogen 474 mg/dl (211-480) 11/27/16 23:00 Heparin Anti-Xa Level 0.14 U.I./ml (0.3-0.7) L 11/30/16 Unknown Heparin Anti-Xa, Unfract Negative (Negative) 11/30/16 Unknown Sodium 141 mmol/L (137-145) 12/07/16 06:32 Potassium 4.1 mmol/L (3.6-5.0) D 12/07/16 06:32 Chloride 100.6 mmol/L (98-107) 12/07/16 06:32 Carbon Dioxide 26 mmol/L (22-30) 12/07/16 06:32 Anion Gap 19 mmol/L 12/07/16 06:32 BUN 4 mg/dL (9-20) L 12/07/16 06:32 Creatinine 0.2 mg/dL (0.8-1.5) L 12/07/16 06:32 Estimated GFR > 60 ml/min 12/07/16 06:32 BUN/Creatinine Ratio 20.00 % 12/07/16 06:32 Glucose 90 mg/dL (75-100) 12/07/16 06:32 POC Glucose 130 (70-105) H 12/13/16 21:39 Calcium 8.7 mg/dL (8.4-10.2) 12/07/16 06:32 Total Bilirubin 0.3 mg/dL (0.1-1.2) 12/07/16 06:32 Direct Bilirubin 0.2 mg/dL (0-0.2) 11/30/16 04:18 Indirect Bilirubin 0.5 mg/dL 11/30/16 04:18 AST 12 units/L (5-40) 12/07/16 06:32 ALT 21 units/L (7-56) 12/07/16 06:32 Alkaline Phosphatase 83 units/L (35-129) 12/07/16 06:32 Total Protein 6.2 g/dL (6.3-8.2) L 12/07/16 06:32 Albumin 2.9 g/dL (3.9-5) L 12/07/16 06:32 Albumin/Globulin Ratio 0.9 % 12/07/16 06:32 Serotonin Release Assay See scanned report 11/30/16 Unknown Urine Color Yellow (Yellow) 11/30/16 Unknown Urine Turbidity Slightly-cloudy (Clear) 11/30/16 Unknown Urine pH 5.0 (5.0-7.0) 11/30/16 Unknown Ur Specific [place] 1.020 (1.003-1.030) 11/30/16 Unknown Urine Protein 30 mg/dl mg/dL (Negative) 11/30/16 Unknown Urine Glucose (UA) Neg mg/dL (Negative) 11/30/16 Unknown Urine Ketones Neg mg/dL (Negative) 11/30/16 Unknown Urine Blood Sm (Negative) 11/30/16 Unknown Urine Nitrite Neg (Negative) 11/30/16 Unknown Urine Bilirubin Neg (Negative) 11/30/16 Unknown Urine Urobilinogen 2.0 mg/dL (<2.0) 11/30/16 Unknown Ur Leukocyte Esterase Sm (Negative) 11/30/16 Unknown Urine WBC (Auto) 19.0 /HPF (0.0-6.0) H 11/30/16 Unknown Urine RBC (Auto) 5.0 /HPF (0.0-6.0) 11/30/16 Unknown U Epithel Cells (Auto) < 1.0 /HPF (0-13.0) 11/30/16 Unknown Uric Acid Crystals 1+ 11/30/16 Unknown Urine Mucus 1+ /HPF 11/30/16 Unknown Heparin-induced Plt Ab Negative (Negative) 11/30/16 Unknown UF Heparin High Dose 0 % Release (()) 11/30/16 Unknown MIKA UFH Low Dose 0.1 1 % Release (()) 11/30/16 Unknown MIKA UFH Low Dose 0.5 0 % Release (()) 11/30/16 Unknown Blood Type O POSITIVE 11/27/16 02:58 Antibody Screen Negative 11/27/16 02:58
[2016-12-15] MEDS: ROXICODONE PO PRN ×3 (04:05→22:26)
[2016-12-15] MEDS: DOLOPHINE PO SCH (10:20)
[2016-12-15] MEDS: ELIQUIS PO SCH ×2 (10:20→22:26)
[2016-12-15] MEDS: PEPCID PO SCH ×2 (10:21→22:26)
[2016-12-15] MEDS: NOVOLOG SUB-Q SCH ×5 (10:26→22:28)
--- NOTE | 2016-12-15 10:30 | Progress Note ---
Assessment and Plan Assessment and plan: 1. Extensive bilateral pulmonary emboli with saddle emboli. Patient is status post bilateral EKOS catheter placement. Patient with successful EKOS catheter directed pulmonary artery thrombolytic therapy and percutaneous thrombectomy with residual thrombus in the right distal main extending into the right upper lobe. Patient also with successful IVC filter placement. IVC filter removal in 3-6 months per IR. Bilateral lower extremity Dopplers negative. HIT antibody negative. Continue eliquis. 2. Psoas abscess. I discussed with top case assembler possibility of transfer for open MRI for further evaluation.. 3. Hypotension secondary to pulmonary emboli. Resolved. 4. Diabetes type 2. Continue sliding-scale insulin and Accu-Cheks. 1800 ADA diet. 5. Obesity/OHS/LIVAN. CPAP at night. 6. Acute hypoxic respiratory failure. Etiology secondary to #1. Continue supportive care. 7. Thrombocytopenia. HIT antibody negative 8. Hypokalemia. Replete potassium as needed. 9. Chronic low back pain. Plain films negative. Patient unable to have MRI due to weight limit. I discussed the possibility for open MRI with director of case management. 10. Disposition. Patient awaiting placement. History Interval history: 36-year-old man with a history of hypertension, diabetes, obesity, chronic pain was transfer from [facility] to LTAC on the sixth floor. Patient was diagnosed with sepsis secondary to pneumonia, psoas abscess, MSSA bacteremia. He was in respiratory failure, he was trached. While on LTAC, the patient was tachycardic, CAT scan was done which shows extensive bilateral pulmonary emboli in the saddle emboli. Patient has received appropriate anticoagulation. Patient had successful placement of bilateral EKOS catheters into the pulmonary arteries with angiographic confirmation. No new issues overnight. Patient complains of low back pain. Hospitalist Physical - Constitutional Vitals: Temp Pulse Resp BP Pulse Ox 98.1 F 115 H 18 134/81 98 12/15/16 09:32 12/15/16 09:32 12/15/16 09:32 12/15/16 09:32 12/15/16 09:32 General appearance: Present: no acute distress, well-nourished - EENT Eyes: Present: PERRL, EOM intact ENT: hearing intact, clear oral mucosa, dentition normal - Neck Neck: Present: supple, normal ROM - Respiratory Respiratory effort: normal Respiratory: bilateral: CTA - Cardiovascular Rhythm: regular Heart Sounds: Present: S1 & S2. Absent: gallop, rub - Extremities Extremities: no ischemia, No edema, Full ROM - Abdominal General gastrointestinal: soft, non-tender, non-distended, normal bowel sounds - Integumentary Integumentary: Present: clear, warm, dry - Neurologic Neurologic: CNII-XII intact, moves all extremities Results - Labs CBC & Chem 7: 12/07/16 06:32 12/07/16 06:32 Labs: Laboratory Last Values WBC 5.3 K/mm3 (4.5-11.0) 12/07/16 06:32 RBC 3.97 M/mm3 (3.65-5.03) 12/07/16 06:32 Hgb 10.4 gm/dl (11.8-15.2) L 12/07/16 06:32 Hct 32.1 % (35.5-45.6) L 12/07/16 06:32 MCV 81 fl (84-94) L 12/07/16 06:32 MCH 26 pg (28-32) L 12/07/16 06:32 MCHC 33 % (32-34) 12/07/16 06:32 RDW 17.3 % (13.2-15.2) H 12/07/16 06:32 Plt Count 331 K/mm3 (140-440) 12/07/16 06:32 Lymph % (Auto) 32.8 % (13.4-35.0) 12/07/16 06:32 [place] % (Auto) 11.5 % (0.0-7.3) H 12/07/16 06:32 Eos % (Auto) 3.9 % (0.0-4.3) 12/07/16 06:32 Baso % (Auto) 0.9 % (0.0-1.8) 12/07/16 06:32 Lymph # 1.7 K/mm3 (1.2-5.4) 12/07/16 06:32 [place] # 0.6 K/mm3 (0.0-0.8) 12/07/16 06:32 Eos # 0.2 K/mm3 (0.0-0.4) 12/07/16 06:32 Baso # 0.0 K/mm3 (0.0-0.1) 12/07/16 06:32 Add Manual Diff Complete 11/27/16 17:00 Total Counted 100 11/27/16 17:00 Seg Neutrophils % 50.9 % (40.0-70.0) 12/07/16 06:32 Seg Neuts % (Manual) 80.0 % (40.0-70.0) H 11/27/16 17:00 Band Neutrophils % 0 % 11/27/16 17:00 Lymphocytes % (Manual) 9.0 % (13.4-35.0) L 11/27/16 17:00 Reactive Lymphs % (Man) 0 % 11/27/16 17:00 Monocytes % (Manual) 9.0 % (0.0-7.3) H 11/27/16 17:00 Eosinophils % (Manual) 0 % (0.0-4.3) 11/27/16 17:00 Basophils % (Manual) 0 % (0.0-1.8) 11/27/16 17:00 Metamyelocytes % 2.0 % 11/27/16 17:00 Myelocytes % 0 % 11/27/16 17:00 Promyelocytes % 0 % 11/27/16 17:00 Blast Cells % 0 % 11/27/16 17:00 Nucleated RBC % Not Reportable 11/27/16 17:00 Seg Neutrophils # 2.7 K/mm3 (1.8-7.7) 12/07/16 06:32 Seg Neutrophils # Man 7.7 K/mm3 (1.8-7.7) 11/27/16 17:00 Band Neutrophils # 0.0 K/mm3 11/27/16 17:00 Lymphocytes # (Manual) 0.9 K/mm3 (1.2-5.4) L 11/27/16 17:00 Abs React Lymphs (Man) 0.0 K/mm3 11/27/16 17:00 Monocytes # (Manual) 0.9 K/mm3 (0.0-0.8) H 11/27/16 17:00 Eosinophils # (Manual) 0.0 K/mm3 (0.0-0.4) 11/27/16 17:00 Basophils # (Manual) 0.0 K/mm3 (0.0-0.1) 11/27/16 17:00 Metamyelocytes # 0.2 K/mm3 11/27/16 17:00 Myelocytes # 0.0 K/mm3 11/27/16 17:00 Promyelocytes # 0.0 K/mm3 11/27/16 17:00 Blast Cells # 0.0 K/mm3 11/27/16 17:00 WBC Morphology Not Reportable 11/27/16 17:00 Hypersegmented Neuts Not Reportable 11/27/16 17:00 Hyposegmented Neuts Not Reportable 11/27/16 17:00 Hypogranular Neuts Not Reportable 11/27/16 17:00 Smudge Cells Not Reportable 11/27/16 17:00 Toxic Granulation Not Reportable 11/27/16 17:00 Toxic Vacuolation Not Reportable 11/27/16 17:00 Dohle Bodies Not Reportable 11/27/16 17:00 Pelger-Huet Anomaly Not Reportable 11/27/16 17:00 Mati Rods Not Reportable 11/27/16 17:00 Platelet Estimate Consistent w auto 11/27/16 17:00 Clumped Platelets Not Reportable 11/27/16 17:00 Plt Clumps, EDTA Not Reportable 11/27/16 17:00 Large Platelets Not Reportable 11/27/16 17:00 Giant Platelets Not Reportable 11/27/16 17:00 Platelet Satelliting Not Reportable 11/27/16 17:00 Plt Morphology Comment Not Reportable 11/27/16 17:00 RBC Morphology Not Reportable 11/27/16 17:00 Dimorphic RBCs Not Reportable 11/27/16 17:00 Polychromasia Not Reportable 11/27/16 17:00 Hypochromasia Not Reportable 11/27/16 17:00 Poikilocytosis Not Reportable 11/27/16 17:00 Anisocytosis 1+ 11/27/16 17:00 Microcytosis Not Reportable 11/27/16 17:00 Macrocytosis Not Reportable 11/27/16 17:00 Spherocytes Not Reportable 11/27/16 17:00 Pappenheimer Bodies Not Reportable 11/27/16 17:00 Sickle Cells Not Reportable 11/27/16 17:00 Target Cells Not Reportable 11/27/16 17:00 Tear Drop Cells Not Reportable 11/27/16 17:00 Ovalocytes Not Reportable 11/27/16 17:00 Helmet Cells Not Reportable 11/27/16 17:00 [place] Bodies Not Reportable 11/27/16 17:00 Anton Rings Not Reportable 11/27/16 17:00 [place] Cells Not Reportable 11/27/16 17:00 Bite Cells Not Reportable 11/27/16 17:00 Crenated Cell Not Reportable 11/27/16 17:00 Elliptocytes Not Reportable 11/27/16 17:00 Acanthocytes (Spur) Not Reportable 11/27/16 17:00 Rouleaux Not Reportable 11/27/16 17:00 Hemoglobin C Crystals Not Reportable 11/27/16 17:00 Schistocytes Not Reportable 11/27/16 17:00 Malaria parasites Not Reportable 11/27/16 17:00 Michael Bodies Not Reportable 11/27/16 17:00 Hem Pathologist Commnt No 11/27/16 17:00 PT 23.9 Sec. (12.2-14.9) H 11/30/16 17:15 INR 2.13 (0.87-1.13) H 11/30/16 17:15 APTT 62.0 Sec. (24.2-36.6) H* 12/04/16 Unknown Fibrinogen 474 mg/dl (211-480) 11/27/16 23:00 Heparin Anti-Xa Level 0.14 U.I./ml (0.3-0.7) L 11/30/16 Unknown Heparin Anti-Xa, Unfract Negative (Negative) 11/30/16 Unknown Sodium 141 mmol/L (137-145) 12/07/16 06:32 Potassium 4.1 mmol/L (3.6-5.0) D 12/07/16 06:32 Chloride 100.6 mmol/L (98-107) 12/07/16 06:32 Carbon Dioxide 26 mmol/L (22-30) 12/07/16 06:32 Anion Gap 19 mmol/L 12/07/16 06:32 BUN 4 mg/dL (9-20) L 12/07/16 06:32 Creatinine 0.2 mg/dL (0.8-1.5) L 12/07/16 06:32 Estimated GFR > 60 ml/min 12/07/16 06:32 BUN/Creatinine Ratio 20.00 % 12/07/16 06:32 Glucose 90 mg/dL (75-100) 12/07/16 06:32 POC Glucose 115 (70-105) H 12/14/16 21:35 Calcium 8.7 mg/dL (8.4-10.2) 12/07/16 06:32 Total Bilirubin 0.3 mg/dL (0.1-1.2) 12/07/16 06:32 Direct Bilirubin 0.2 mg/dL (0-0.2) 11/30/16 04:18 Indirect Bilirubin 0.5 mg/dL 11/30/16 04:18 AST 12 units/L (5-40) 12/07/16 06:32 ALT 21 units/L (7-56) 12/07/16 06:32 Alkaline Phosphatase 83 units/L (35-129) 12/07/16 06:32 Total Protein 6.2 g/dL (6.3-8.2) L 12/07/16 06:32 Albumin 2.9 g/dL (3.9-5) L 12/07/16 06:32 Albumin/Globulin Ratio 0.9 % 12/07/16 06:32 Serotonin Release Assay See scanned report 11/30/16 Unknown Urine Color Yellow (Yellow) 11/30/16 Unknown Urine Turbidity Slightly-cloudy (Clear) 11/30/16 Unknown Urine pH 5.0 (5.0-7.0) 11/30/16 Unknown Ur Specific [place] 1.020 (1.003-1.030) 11/30/16 Unknown Urine Protein 30 mg/dl mg/dL (Negative) 11/30/16 Unknown Urine Glucose (UA) Neg mg/dL (Negative) 11/30/16 Unknown Urine Ketones Neg mg/dL (Negative) 11/30/16 Unknown Urine Blood Sm (Negative) 11/30/16 Unknown Urine Nitrite Neg (Negative) 11/30/16 Unknown Urine Bilirubin Neg (Negative) 11/30/16 Unknown Urine Urobilinogen 2.0 mg/dL (<2.0) 11/30/16 Unknown Ur Leukocyte Esterase Sm (Negative) 11/30/16 Unknown Urine WBC (Auto) 19.0 /HPF (0.0-6.0) H 11/30/16 Unknown Urine RBC (Auto) 5.0 /HPF (0.0-6.0) 11/30/16 Unknown U Epithel Cells (Auto) < 1.0 /HPF (0-13.0) 11/30/16 Unknown Uric Acid Crystals 1+ 11/30/16 Unknown Urine Mucus 1+ /HPF 11/30/16 Unknown Heparin-induced Plt Ab Negative (Negative) 11/30/16 Unknown UF Heparin High Dose 0 % Release (()) 11/30/16 Unknown MIKA UFH Low Dose 0.1 1 % Release (()) 11/30/16 Unknown MIKA UFH Low Dose 0.5 0 % Release (()) 11/30/16 Unknown Blood Type O POSITIVE 11/27/16 02:58 Antibody Screen Negative 11/27/16 02:58
[2016-12-15] MEDS: XANAX PO PRN (11:38)
[2016-12-15] MEDS: NYSTOP TP SCH ×2 (11:40→22:27)
[2016-12-16] MEDS: ROXICODONE PO PRN ×4 (05:50→21:56)
[2016-12-16] MEDS: NOVOLOG SUB-Q SCH ×4 (08:00→21:58)
[2016-12-16] MEDS: DOLOPHINE PO SCH (10:03)
[2016-12-16] MEDS: NYSTOP TP SCH ×2 (10:04→21:56)
[2016-12-16] MEDS: ELIQUIS PO SCH ×2 (10:04→21:56)
[2016-12-16] MEDS: PEPCID PO SCH ×2 (10:04→21:56)
[2016-12-16] MEDS: MILK OF MAGNESIA PO PRN (10:06)
--- NOTE | 2016-12-16 11:37 | Progress Note ---
Assessment and Plan Assessment and plan: 1. Extensive bilateral pulmonary emboli with saddle emboli. Patient is status post bilateral EKOS catheter placement. Patient with successful EKOS catheter directed pulmonary artery thrombolytic therapy and percutaneous thrombectomy with residual thrombus in the right distal main extending into the right upper lobe. Patient also with successful IVC filter placement. IVC filter removal in 3-6 months per IR. Bilateral lower extremity Dopplers negative. HIT antibody negative. Continue eliquis. 2. Psoas abscess. Patient has completed 6 weeks of IV antibiotics per ID. I discussed with case resource manager on 12/14/69 the possibility of transfer for open MRI for further evaluation. Patient unable to undergo MRI due to body habitus. 3. Hypotension secondary to pulmonary emboli. Resolved. 4. Diabetes type 2. Continue sliding-scale insulin and Accu-Cheks. 1800 ADA diet. 5. Obesity/OHS/LIVAN. CPAP at night. 6. Acute hypoxic respiratory failure. Etiology secondary to #1. Continue supportive care. 7. Thrombocytopenia. HIT antibody negative 8. Hypokalemia. Replete potassium as needed. 9. Chronic low back pain. Plain films negative. Patient unable to have MRI due to weight limit. I discussed the possibility for open MRI with director of case management. 10. GI consultation for PEG tube removal. 11. Disposition. Patient awaiting placement. History Interval history: 36-year-old man with a history of hypertension, diabetes, obesity, chronic pain was transfer from [facility] to [facility] on the sixth floor. Patient was diagnosed with sepsis secondary to pneumonia, psoas abscess, MSSA bacteremia. He was in respiratory failure, he was trached. While on LTAC, the patient was tachycardic, CAT scan was done which shows extensive bilateral pulmonary emboli in the saddle emboli. Patient has received appropriate anticoagulation. Patient had successful placement of bilateral EKOS catheters into the pulmonary arteries with angiographic confirmation. No new issues overnight. Patient complains of low back pain. Patient also requesting for PEG tube removal. Hospitalist Physical - Constitutional Vitals: Temp Pulse Resp BP Pulse Ox 98.4 F 106 H 18 125/80 98 12/16/16 09:43 12/16/16 09:43 12/16/16 09:43 12/16/16 09:43 12/16/16 09:43 General appearance: Present: no acute distress, well-nourished - EENT Eyes: Present: PERRL, EOM intact ENT: hearing intact, clear oral mucosa, dentition normal - Neck Neck: Present: supple, normal ROM - Respiratory Respiratory effort: normal Respiratory: bilateral: CTA - Cardiovascular Rhythm: regular Heart Sounds: Present: S1 & S2. Absent: gallop, rub - Extremities Extremities: no ischemia, No edema, Full ROM - Abdominal General gastrointestinal: soft, non-tender, non-distended, normal bowel sounds - Integumentary Integumentary: Present: clear, warm, dry - Neurologic Neurologic: CNII-XII intact, moves all extremities Results - Labs CBC & Chem 7: 12/07/16 06:32 12/07/16 06:32 Labs: Laboratory Last Values WBC 5.3 K/mm3 (4.5-11.0) 12/07/16 06:32 RBC 3.97 M/mm3 (3.65-5.03) 12/07/16 06:32 Hgb 10.4 gm/dl (11.8-15.2) L 12/07/16 06:32 Hct 32.1 % (35.5-45.6) L 12/07/16 06:32 MCV 81 fl (84-94) L 12/07/16 06:32 MCH 26 pg (28-32) L 12/07/16 06:32 MCHC 33 % (32-34) 12/07/16 06:32 RDW 17.3 % (13.2-15.2) H 12/07/16 06:32 Plt Count 331 K/mm3 (140-440) 12/07/16 06:32 Lymph % (Auto) 32.8 % (13.4-35.0) 12/07/16 06:32 [place] % (Auto) 11.5 % (0.0-7.3) H 12/07/16 06:32 Eos % (Auto) 3.9 % (0.0-4.3) 12/07/16 06:32 Baso % (Auto) 0.9 % (0.0-1.8) 12/07/16 06:32 Lymph # 1.7 K/mm3 (1.2-5.4) 12/07/16 06:32 [place] # 0.6 K/mm3 (0.0-0.8) 12/07/16 06:32 Eos # 0.2 K/mm3 (0.0-0.4) 12/07/16 06:32 Baso # 0.0 K/mm3 (0.0-0.1) 12/07/16 06:32 Add Manual Diff Complete 11/27/16 17:00 Total Counted 100 11/27/16 17:00 Seg Neutrophils % 50.9 % (40.0-70.0) 12/07/16 06:32 Seg Neuts % (Manual) 80.0 % (40.0-70.0) H 11/27/16 17:00 Band Neutrophils % 0 % 11/27/16 17:00 Lymphocytes % (Manual) 9.0 % (13.4-35.0) L 11/27/16 17:00 Reactive Lymphs % (Man) 0 % 11/27/16 17:00 Monocytes % (Manual) 9.0 % (0.0-7.3) H 11/27/16 17:00 Eosinophils % (Manual) 0 % (0.0-4.3) 11/27/16 17:00 Basophils % (Manual) 0 % (0.0-1.8) 11/27/16 17:00 Metamyelocytes % 2.0 % 11/27/16 17:00 Myelocytes % 0 % 11/27/16 17:00 Promyelocytes % 0 % 11/27/16 17:00 Blast Cells % 0 % 11/27/16 17:00 Nucleated RBC % Not Reportable 11/27/16 17:00 Seg Neutrophils # 2.7 K/mm3 (1.8-7.7) 12/07/16 06:32 Seg Neutrophils # Man 7.7 K/mm3 (1.8-7.7) 11/27/16 17:00 Band Neutrophils # 0.0 K/mm3 11/27/16 17:00 Lymphocytes # (Manual) 0.9 K/mm3 (1.2-5.4) L 11/27/16 17:00 Abs React Lymphs (Man) 0.0 K/mm3 11/27/16 17:00 Monocytes # (Manual) 0.9 K/mm3 (0.0-0.8) H 11/27/16 17:00 Eosinophils # (Manual) 0.0 K/mm3 (0.0-0.4) 11/27/16 17:00 Basophils # (Manual) 0.0 K/mm3 (0.0-0.1) 11/27/16 17:00 Metamyelocytes # 0.2 K/mm3 11/27/16 17:00 Myelocytes # 0.0 K/mm3 11/27/16 17:00 Promyelocytes # 0.0 K/mm3 11/27/16 17:00 Blast Cells # 0.0 K/mm3 11/27/16 17:00 WBC Morphology Not Reportable 11/27/16 17:00 Hypersegmented Neuts Not Reportable 11/27/16 17:00 Hyposegmented Neuts Not Reportable 11/27/16 17:00 Hypogranular Neuts Not Reportable 11/27/16 17:00 Smudge Cells Not Reportable 11/27/16 17:00 Toxic Granulation Not Reportable 11/27/16 17:00 Toxic Vacuolation Not Reportable 11/27/16 17:00 Dohle Bodies Not Reportable 11/27/16 17:00 Pelger-Huet Anomaly Not Reportable 11/27/16 17:00 Mati Rods Not Reportable 11/27/16 17:00 Platelet Estimate Consistent w auto 11/27/16 17:00 Clumped Platelets Not Reportable 11/27/16 17:00 Plt Clumps, EDTA Not Reportable 11/27/16 17:00 Large Platelets Not Reportable 11/27/16 17:00 Giant Platelets Not Reportable 11/27/16 17:00 Platelet Satelliting Not Reportable 11/27/16 17:00 Plt Morphology Comment Not Reportable 11/27/16 17:00 RBC Morphology Not Reportable 11/27/16 17:00 Dimorphic RBCs Not Reportable 11/27/16 17:00 Polychromasia Not Reportable 11/27/16 17:00 Hypochromasia Not Reportable 11/27/16 17:00 Poikilocytosis Not Reportable 11/27/16 17:00 Anisocytosis 1+ 11/27/16 17:00 Microcytosis Not Reportable 11/27/16 17:00 Macrocytosis Not Reportable 11/27/16 17:00 Spherocytes Not Reportable 11/27/16 17:00 Pappenheimer Bodies Not Reportable 11/27/16 17:00 Sickle Cells Not Reportable 11/27/16 17:00 Target Cells Not Reportable 11/27/16 17:00 Tear Drop Cells Not Reportable 11/27/16 17:00 Ovalocytes Not Reportable 11/27/16 17:00 Helmet Cells Not Reportable 11/27/16 17:00 Serrato-[place] Bodies Not Reportable 11/27/16 17:00 [place] Rings Not Reportable 11/27/16 17:00 [place] Cells Not Reportable 11/27/16 17:00 Bite Cells Not Reportable 11/27/16 17:00 Crenated Cell Not Reportable 11/27/16 17:00 Elliptocytes Not Reportable 11/27/16 17:00 Acanthocytes (Spur) Not Reportable 11/27/16 17:00 Rouleaux Not Reportable 11/27/16 17:00 Hemoglobin C Crystals Not Reportable 11/27/16 17:00 Schistocytes Not Reportable 11/27/16 17:00 Malaria parasites Not Reportable 11/27/16 17:00 Michael Bodies Not Reportable 11/27/16 17:00 Hem Pathologist Commnt No 11/27/16 17:00 PT 23.9 Sec. (12.2-14.9) H 11/30/16 17:15 INR 2.13 (0.87-1.13) H 11/30/16 17:15 APTT 62.0 Sec. (24.2-36.6) H* 12/04/16 Unknown Fibrinogen 474 mg/dl (211-480) 11/27/16 23:00 Heparin Anti-Xa Level 0.14 U.I./ml (0.3-0.7) L 11/30/16 Unknown Heparin Anti-Xa, Unfract Negative (Negative) 11/30/16 Unknown Sodium 141 mmol/L (137-145) 12/07/16 06:32 Potassium 4.1 mmol/L (3.6-5.0) D 12/07/16 06:32 Chloride 100.6 mmol/L (98-107) 12/07/16 06:32 Carbon Dioxide 26 mmol/L (22-30) 12/07/16 06:32 Anion Gap 19 mmol/L 12/07/16 06:32 BUN 4 mg/dL (9-20) L 12/07/16 06:32 Creatinine 0.2 mg/dL (0.8-1.5) L 12/07/16 06:32 Estimated GFR > 60 ml/min 12/07/16 06:32 BUN/Creatinine Ratio 20.00 % 12/07/16 06:32 Glucose 90 mg/dL (75-100) 12/07/16 06:32 POC Glucose 157 (70-105) H 12/15/16 21:28 Calcium 8.7 mg/dL (8.4-10.2) 12/07/16 06:32 Total Bilirubin 0.3 mg/dL (0.1-1.2) 12/07/16 06:32 Direct Bilirubin 0.2 mg/dL (0-0.2) 11/30/16 04:18 Indirect Bilirubin 0.5 mg/dL 11/30/16 04:18 AST 12 units/L (5-40) 12/07/16 06:32 ALT 21 units/L (7-56) 12/07/16 06:32 Alkaline Phosphatase 83 units/L (35-129) 12/07/16 06:32 Total Protein 6.2 g/dL (6.3-8.2) L 12/07/16 06:32 Albumin 2.9 g/dL (3.9-5) L 12/07/16 06:32 Albumin/Globulin Ratio 0.9 % 12/07/16 06:32 Serotonin Release Assay See scanned report 11/30/16 Unknown Urine Color Yellow (Yellow) 11/30/16 Unknown Urine Turbidity Slightly-cloudy (Clear) 11/30/16 Unknown Urine pH 5.0 (5.0-7.0) 11/30/16 Unknown Ur Specific [place] 1.020 (1.003-1.030) 11/30/16 Unknown Urine Protein 30 mg/dl mg/dL (Negative) 11/30/16 Unknown Urine Glucose (UA) Neg mg/dL (Negative) 11/30/16 Unknown Urine Ketones Neg mg/dL (Negative) 11/30/16 Unknown Urine Blood Sm (Negative) 11/30/16 Unknown Urine Nitrite Neg (Negative) 11/30/16 Unknown Urine Bilirubin Neg (Negative) 11/30/16 Unknown Urine Urobilinogen 2.0 mg/dL (<2.0) 11/30/16 Unknown Ur Leukocyte Esterase Sm (Negative) 11/30/16 Unknown Urine WBC (Auto) 19.0 /HPF (0.0-6.0) H 11/30/16 Unknown Urine RBC (Auto) 5.0 /HPF (0.0-6.0) 11/30/16 Unknown U Epithel Cells (Auto) < 1.0 /HPF (0-13.0) 11/30/16 Unknown Uric Acid Crystals 1+ 11/30/16 Unknown Urine Mucus 1+ /HPF 11/30/16 Unknown Heparin-induced Plt Ab Negative (Negative) 11/30/16 Unknown UF Heparin High Dose 0 % Release (()) 11/30/16 Unknown MIKA UFH Low Dose 0.1 1 % Release (()) 11/30/16 Unknown MIKA UFH Low Dose 0.5 0 % Release (()) 11/30/16 Unknown Blood Type O POSITIVE 11/27/16 02:58 Antibody Screen Negative 11/27/16 02:58
[2016-12-16] MEDS: MIRALAX 3350 PO PRN (14:12)
[2016-12-17] MEDS: ROXICODONE PO PRN ×3 (05:58→21:33)
[2016-12-17] MEDS: NOVOLOG SUB-Q SCH ×4 (08:43→21:34)
[2016-12-17] MEDS: ELIQUIS PO SCH ×2 (10:20→21:33)
[2016-12-17] MEDS: DOLOPHINE PO SCH (10:20)
[2016-12-17] MEDS: PEPCID PO SCH ×2 (10:21→21:33)
--- NOTE | 2016-12-17 10:33 | Gastroenterology Consultation ---
<TESSASANCHOBARRY MURILLO - Last Filed: 12/17/16 10:41> History of Present Illness - Reason for Consult Consult date: 12/17/16 peg removal Requesting physician: BRANDI CHRISTINE - History of Present Illness Mr. Chaparro is a 36-year-old man with a history of hypertension, diabetes, obesity, chronic pain was transfer from [facility] to [facility] on the 6th floor. He was admitted to [facility] in Oct for PNA/Respiratory failure, MSSA bacteremia and Psoas muscle abscess and eventually underwent trach and PEG placememt per genreal surgery in OCT He was then transferred to [facility]. He developed and acute onset of tachycardia and hypotension and was found to have extensive PE with saddle embolism. He was started on Heparin gtt and transferred to ICU, underwent successful bilateral EKOS catheter placement and is now on Eliquis. HE has been unable to obtain MRI for further evaluation of back pain or Psoas abscess 2/2 body habitus. We have been asked to see the patient for removal of PEG tube. The patient is now eating a regular diet. Past History Past Medical History: diabetes, hypertension, other (pneumonia, sepsis, sleep apnea, morbid obesity, psoas abscess) Past Surgical History: Other (s/p trach, EKOS, PEG) Social history: , other (chews tobacco). denies: alcohol abuse Family history: diabetes Medications and Allergies Allergies Allergy/AdvReac Type Severity Reaction Status Date / Time gentamicin Allergy Unknown Verified 11/27/16 02:31 neomycin Allergy Unknown Verified 11/27/16 02:31 Home Medications Medication Instructions Recorded Confirmed Last Taken Type Arformoterol Nebu [Brovana Nebu] 2 ml INHALATION BID 11/29/16 11/29/16 Unknown History FLUoxetine [PROzac] 20 mg FEEDTUBE QDAY 11/29/16 11/29/16 Unknown History HumaLOG VIAL See Protocol SUB-Q Q6H 11/29/16 11/29/16 Unknown History Methadone [Dolophine] 20 mg FEEDTUBE DAILY 11/29/16 11/29/16 11/25/16 History Pantoprazole [Protonix TAB] 40 mg FEEDTUBE DAILY 11/29/16 11/29/16 11/25/16 History Sucralfate [Carafate] 1 gm FEEDTUBE Q6HR 11/29/16 11/29/16 11/25/16 History Tamsulosin [Flomax] 0.4 mg PO QHS 11/29/16 11/29/16 11/25/16 History hydrALAZINE [Apresoline TAB] 25 mg FEEDTUBE TID 11/29/16 11/29/16 Unknown History ALPRAZolam [Xanax TAB] 0.25 mg PO Q6H PRN #30 tablet 12/13/16 Unknown Rx Acetaminophen [Acetaminophen TAB] 650 mg PO Q6H PRN #30 tablet 12/13/16 Unknown Rx Antacid [Alum-Mag Hydrox-Simeth 30 ml PO Q4H PRN #30 oral.liqd 12/13/16 Unknown Rx [id number]/5Ml] Apixaban [Eliquis] 5 mg PO Q12HR tablet 12/13/16 Unknown Rx Famotidine [Pepcid] 20 mg PO BID tablet 12/13/16 Unknown Rx HYDROcodone/APAP 5-325 [[place] 2 each PO Q6H PRN #30 tablet 12/13/16 Unknown Rx 5-325 mg TAB] Hyoscyamine Subl [Levsin Sl 0.125 0.125 mg SL Q4H PRN #30 tablet 12/13/16 Unknown Rx TAB] Magnesium Hydroxide [Milk of 30 ml PO Q4H PRN #30 oral.liqd 12/13/16 Unknown Rx Magnesia] Methadone [Dolophine] 20 mg PO DAILY #30 tablet 12/13/16 Unknown Rx Nystatin [Nystop Powder] 1 applic TP BID powder 12/13/16 Unknown Rx Active Meds: Active Medications Acetaminophen (Tylenol) 650 mg PO Q6H PRN PRN Reason: Pain MILD(1-3)/Fever >100.5/MONSIVAIS Al Hydrox/Mg Hydrox/Simethicone (Alum-Mag Hydrox-Simeth [id number]/5ml) 30 ml PO Q4H PRN PRN Reason: Indigestion Last Admin: 12/07/16 19:25 Dose: 30 ml Alprazolam (Xanax) 0.25 mg PO Q6H PRN PRN Reason: Anxiety Last Admin: 12/15/16 11:38 Dose: 0.25 mg Apixaban (Eliquis) 5 mg PO Q12HR BISHOP Last Admin: 12/17/16 10:20 Dose: 5 mg Dextrose (D50w (25gm)) 50 ml IV PRN PRN PRN Reason: Hypoglycemia Famotidine (Pepcid) 20 mg PO BID [facility] Last Admin: 12/17/16 10:21 Dose: 20 mg Hyoscyamine (Levsin Sl) 0.125 mg SL Q4H PRN PRN Reason: Spasms Last Admin: 12/07/16 01:31 Dose: 0.125 mg Insulin Aspart (Novolog) 0 units SUB-Q ACHS [facility] PRN Reason: Protocol Last Admin: 12/16/16 21:58 Dose: Not Given Magnesium Hydroxide (Milk Of Magnesia) 30 ml PO Q4H PRN PRN Reason: Constipation Last Admin: 12/16/16 10:06 Dose: 30 ml Methadone HCl (Dolophine) 20 mg PO DAILY [facility] Last Admin: 12/17/16 10:20 Dose: 20 mg Morphine Sulfate (Morphine) 2 mg IV Q4H PRN PRN Reason: Pain, Moderate (4-6) Last Admin: 12/10/16 12:30 Dose: 2 mg Morphine Sulfate (Morphine) 4 mg IV Q4H PRN PRN Reason: Pain , Severe (7-10) Last Admin: 12/05/16 02:25 Dose: 4 mg Nystatin (Nystop) 1 applic TP BID [facility] Last Admin: 12/16/16 21:56 Dose: 1 applic Ondansetron HCl (Zofran) 4 mg IV Q4H PRN PRN Reason: N/V unrelieved by Reglan Last Admin: 11/27/16 09:21 Dose: 4 mg Oxycodone HCl (Roxicodone) 10 mg PO Q4H PRN PRN Reason: Pain, Moderate (4-6) Last Admin: 12/17/16 05:58 Dose: 10 mg Polyethylene Glycol (Miralax 3350) 17 gm PO QDAY PRN PRN Reason: Constipation Last Admin: 12/16/16 14:12 Dose: 17 gm Review of Systems - Review of Systems All systems: negative Constitutional: weakness Gastrointestinal: abdominal pain Exam - Constitutional Vital Signs: Temp Pulse Resp BP Pulse Ox 99.1 F 104 H 20 112/72 93 12/17/16 08:34 12/17/16 08:34 12/17/16 08:34 12/17/16 08:34 12/17/16 08:34 General appearance: no acute distress - EENT ENT: hearing intact - Neck Neck: supple - Respiratory Respiratory: bilateral: CTA - Cardiovascular Rhythm: regular Heart Sounds: Present: S1 & S2 - Gastrointestinal General gastrointestinal: Present: soft, non-tender, normal bowel sounds, other (PEG ) - Integumentary Integumentary: Present: warm, dry, pale - Neurologic Neurological: alert and oriented x3 - Psychiatric Psychiatric: appropriate mood/affect, cooperative - Labs CBC & Chem 7: 12/07/16 06:32 12/07/16 06:32 Lab Results: Laboratory Results - last 24 hr 12/16/16 12/16/16 12/16/16 09:04 11:57 16:29 POC Glucose 124 H 149 H 129 H 12/16/16 23:17 POC Glucose 115 H Assessment and Plan 1. PEG Removal -Will discuss with DR. Nice regarding timing of PEG removal in the patient on ELiquis and known PE/Saddle embolism. He is also S/P IVC filter placement. -Patient and family report that he is eating regular food x 1 month. 2. Intermittent abdominal Pain -no associated N/V or Diarrhea, but patient report he has difficulty with BM, now only having BM 1-2 times per week. Will order KUB, if normal will order laxative. <GLENN NICE - Last Filed: 12/17/16 17:56> Medications and Allergies Active Meds: Active Medications Acetaminophen (Tylenol) 650 mg PO Q6H PRN PRN Reason: Pain MILD(1-3)/Fever >100.5/MONSIV[place]IS Al Hydrox/Mg Hydrox/Simethicone (Alum-Mag Hydrox-Simeth [phone]/5ml) 30 ml PO Q4H PRN PRN Reason: Indigestion Last Admin: 12/07/16 19:25 Dose: 30 ml Alprazolam (Xanax) 0.25 mg PO Q6H PRN PRN Reason: Anxiety Last Admin: 12/15/16 11:38 Dose: 0.25 mg Apixaban (Eliquis) 5 mg PO Q12HR BISHOP Last Admin: 12/17/16 10:20 Dose: 5 mg Dextrose (D50w (25gm)) 50 ml IV PRN PRN PRN Reason: Hypoglycemia Famotidine (Pepcid) 20 mg PO BID [facility] Last Admin: 12/17/16 10:21 Dose: 20 mg Hyoscyamine (Levsin Sl) 0.125 mg SL Q4H PRN PRN Reason: Spasms Last Admin: 12/07/16 01:31 Dose: 0.125 mg Insulin Aspart (Novolog) 0 units SUB-Q ACHS BISHOP PRN Reason: Protocol Last Admin: 12/17/16 13:43 Dose: Not Given Magnesium Hydroxide (Milk Of Magnesia) 30 ml PO Q4H PRN PRN Reason: Constipation Last Admin: 12/16/16 10:06 Dose: 30 ml Methadone HCl (Dolophine) 20 mg PO DAILY [facility] Last Admin: 12/17/16 10:20 Dose: 20 mg Morphine Sulfate (Morphine) 2 mg IV Q4H PRN PRN Reason: Pain, Moderate (4-6) Last Admin: 12/10/16 12:30 Dose: 2 mg Morphine Sulfate (Morphine) 4 mg IV Q4H PRN PRN Reason: Pain , Severe (7-10) Last Admin: 12/05/16 02:25 Dose: 4 mg Nystatin (Nystop) 1 applic TP BID [facility] Last Admin: 12/17/16 12:39 Dose: 1 applic Ondansetron HCl (Zofran) 4 mg IV Q4H PRN PRN Reason: N/V unrelieved by Radha Last Admin: 11/27/16 09:21 Dose: 4 mg Oxycodone HCl (Roxicodone) 10 mg PO Q4H PRN PRN Reason: Pain, Moderate (4-6) Last Admin: 12/17/16 12:38 Dose: 10 mg Polyethylene Glycol (Miralax 3350) 17 gm PO QDAY PRN PRN Reason: Constipation Last Admin: 12/16/16 14:12 Dose: 17 gm Exam - Constitutional Vital Signs: Temp Pulse Resp BP Pulse Ox 99.7 F H 112 H 20 123/70 98 12/17/16 12:47 12/17/16 12:47 12/17/16 12:47 12/17/16 12:47 12/17/16 12:47 - Labs CBC & Chem 7: 12/07/16 06:32 12/07/16 06:32 Lab Results: Laboratory Results - last 24 hr 12/16/16 12/16/16 12/16/16 09:04 11:57 16:29 POC Glucose 124 H 149 H 129 H 12/16/16 12/17/16 12/17/16 23:17 08:34 12:47 POC Glucose 115 H 106 H 142 H Assessment and Plan GI Attending: I have performed a face to face evaluation on Mr. Chaparro and agree with the above note of Franca Wren NP. He has a PEG tube, which technically could be removed; however, he is on Eliquis and only if this can be held for 2 days, can the PEG be removed. Otherwise, would defer removal to outpatient setting when Eliquis can safely be held.
--- NOTE | 2016-12-17 11:51 | XRay Report ---
ABDOMEN RADIOGRAPH INDICATION: Abdominal pain, constipation. COMPARISON: 11/26/2016 FINDINGS: Frontal abdominal radiograph again demonstrates nonobstructive bowel gas pattern with some colonic stool and rectosigmoid air with caliber up to approximately 6-7 cm. Some air within the stomach also again noted as also a PEG tube. New IVC filter projects over L2 and L3. No definite focal suspicious calcifications, pneumatosis or pneumoperitoneum, though flanks and the right hemidiaphragm incompletely imaged. Clear left lung base. Grossly unremarkable bones. Lower pelvis not included. CONCLUSION: Interval IVC placement and few other incidental findings, as above. Thank you for the opportunity to participate in this patient's care.
[2016-12-17] MEDS ORDERED: VALIUM PO ONE (12:17)
[2016-12-17] MEDS: NYSTOP TP SCH ×2 (12:39→21:33)
--- NOTE | 2016-12-17 17:56 | Event Note ---
Date: 12/17/16 PEG can be removed, but only if Eliquis can be held for 2 days. Will defer this to primary team. If unable to be held, would defer to outpatient setting.
--- NOTE | 2016-12-17 19:12 | Progress Note ---
Assessment and Plan Assessment and plan: 36-year-old man with a history of hypertension, diabetes, obesity, chronic pain was transfer from [facility] to LTAC on the sixth floor. Patient was diagnosed with sepsis secondary to pneumonia, psoas abscess, MSSA bacteremia. He was in respiratory failure, he was trached. While on LTAC, the patient was tachycardic, CAT scan was done which shows extensive bilateral pulmonary emboli in the saddle emboli. Patient has received appropriate anticoagulation. Patient had successful placement of bilateral EKOS catheters into the pulmonary arteries with angiographic confirmation. No new issues overnight. Patient complains of low back pain. Patient also requesting for PEG tube removal 1. Extensive bilateral pulmonary emboli with saddle emboli. Patient is status post bilateral EKOS catheter placement. Patient with successful EKOS catheter directed pulmonary artery thrombolytic therapy and percutaneous thrombectomy with residual thrombus in the right distal main extending into the right upper lobe. Patient also with successful IVC filter placement. IVC filter removal in 3-6 months per IR. Bilateral lower extremity Dopplers negative. HIT antibody negative. continues to oxygenate well and in no acute distress. Eliquis will be held for PEG removal Will start on Heparin drip and transition back to Eliquis once peg discontinued. 2. Psoas abscess. Arranged for Open MRI to further evaluate severe Debility. Intial call from Radiologist is concerning for persistent abscess, awaiting offical report which will be faxed over. Patient has completed 6 weeks of IV antibiotics per ID. When report if obtained will re-evaluate for possible IR intervention or Transfer to outside facility 3. Hypotension secondary to pulmonary emboli. Resolved. 4. Diabetes type 2. Continue sliding-scale insulin and Accu-Cheks. 1800 ADA diet. 5. Obesity/OHS/LIVAN. CPAP at night. 6. Acute hypoxic respiratory failure. Etiology secondary to #1. Continue supportive care. 7. Thrombocytopenia. HIT antibody negative 8. Hypokalemia. Replete potassium as needed. 9. Chronic low back pain. Plain films negative. Patient unable to have MRI due to weight limit. I discussed the possibility for open MRI with director of case management. 10. GI consultation for PEG tube removal. 11. Disposition. awaiting OPEN MRI report. History Interval history: Patient seen and examined, still with bilateral lower ext weakness. denies any abdominal pain, nausea or vomiting. . Hospitalist Physical - Physical exam Narrative exam: General appearance: Present: no acute distress, well-nourished, obese - EENT Eyes: Present: PERRL, EOM intact ENT: hearing intact, clear oral mucosa, dentition normal - Neck Neck: Present: supple, normal ROM - Respiratory Respiratory effort: normal Respiratory: bilateral: CTA - Cardiovascular Rhythm: regular Heart Sounds: Present: S1 & S2. Absent: gallop, rub - Extremities Extremities: no ischemia, No edema, Full ROM - Abdominal General gastrointestinal: soft, non-tender, non-distended, normal bowel sounds - Integumentary Integumentary: Present: clear, warm, dry - Neurologic Neurologic: CNII-XII intact, limited movement in b/l lower ext - Constitutional Vitals: Temp Pulse Resp BP Pulse Ox 99.7 F H 112 H 20 123/70 98 12/17/16 12:47 12/17/16 12:47 12/17/16 12:47 12/17/16 12:47 12/17/16 12:47 General appearance: Present: no acute distress, well-nourished Results - Labs CBC & Chem 7: 12/07/16 06:32 12/07/16 06:32 Labs: Laboratory Last Values WBC 5.3 K/mm3 (4.5-11.0) 12/07/16 06:32 RBC 3.97 M/mm3 (3.65-5.03) 12/07/16 06:32 Hgb 10.4 gm/dl (11.8-15.2) L 12/07/16 06:32 Hct 32.1 % (35.5-45.6) L 12/07/16 06:32 MCV 81 fl (84-94) L 12/07/16 06:32 MCH 26 pg (28-32) L 12/07/16 06:32 MCHC 33 % (32-34) 12/07/16 06:32 RDW 17.3 % (13.2-15.2) H 12/07/16 06:32 Plt Count 331 K/mm3 (140-440) 12/07/16 06:32 Lymph % (Auto) 32.8 % (13.4-35.0) 12/07/16 06:32 [place] % (Auto) 11.5 % (0.0-7.3) H 12/07/16 06:32 Eos % (Auto) 3.9 % (0.0-4.3) 12/07/16 06:32 Baso % (Auto) 0.9 % (0.0-1.8) 12/07/16 06:32 Lymph # 1.7 K/mm3 (1.2-5.4) 12/07/16 06:32 [place] # 0.6 K/mm3 (0.0-0.8) 12/07/16 06:32 Eos # 0.2 K/mm3 (0.0-0.4) 12/07/16 06:32 Baso # 0.0 K/mm3 (0.0-0.1) 12/07/16 06:32 Add Manual Diff Complete 11/27/16 17:00 Total Counted 100 11/27/16 17:00 Seg Neutrophils % 50.9 % (40.0-70.0) 12/07/16 06:32 Seg Neuts % (Manual) 80.0 % (40.0-70.0) H 11/27/16 17:00 Band Neutrophils % 0 % 11/27/16 17:00 Lymphocytes % (Manual) 9.0 % (13.4-35.0) L 11/27/16 17:00 Reactive Lymphs % (Man) 0 % 11/27/16 17:00 Monocytes % (Manual) 9.0 % (0.0-7.3) H 11/27/16 17:00 Eosinophils % (Manual) 0 % (0.0-4.3) 11/27/16 17:00 Basophils % (Manual) 0 % (0.0-1.8) 11/27/16 17:00 Metamyelocytes % 2.0 % 11/27/16 17:00 Myelocytes % 0 % 11/27/16 17:00 Promyelocytes % 0 % 11/27/16 17:00 Blast Cells % 0 % 11/27/16 17:00 Nucleated RBC % Not Reportable 11/27/16 17:00 Seg Neutrophils # 2.7 K/mm3 (1.8-7.7) 12/07/16 06:32 Seg Neutrophils # Man 7.7 K/mm3 (1.8-7.7) 11/27/16 17:00 Band Neutrophils # 0.0 K/mm3 11/27/16 17:00 Lymphocytes # (Manual) 0.9 K/mm3 (1.2-5.4) L 11/27/16 17:00 Abs React Lymphs (Man) 0.0 K/mm3 11/27/16 17:00 Monocytes # (Manual) 0.9 K/mm3 (0.0-0.8) H 11/27/16 17:00 Eosinophils # (Manual) 0.0 K/mm3 (0.0-0.4) 11/27/16 17:00 Basophils # (Manual) 0.0 K/mm3 (0.0-0.1) 11/27/16 17:00 Metamyelocytes # 0.2 K/mm3 11/27/16 17:00 Myelocytes # 0.0 K/mm3 11/27/16 17:00 Promyelocytes # 0.0 K/mm3 11/27/16 17:00 Blast Cells # 0.0 K/mm3 11/27/16 17:00 WBC Morphology Not Reportable 11/27/16 17:00 Hypersegmented Neuts Not Reportable 11/27/16 17:00 Hyposegmented Neuts Not Reportable 11/27/16 17:00 Hypogranular Neuts Not Reportable 11/27/16 17:00 Smudge Cells Not Reportable 11/27/16 17:00 Toxic Granulation Not Reportable 11/27/16 17:00 Toxic Vacuolation Not Reportable 11/27/16 17:00 Dohle Bodies Not Reportable 11/27/16 17:00 Pelger-Huet Anomaly Not Reportable 11/27/16 17:00 Mati Rods Not Reportable 11/27/16 17:00 Platelet Estimate Consistent w auto 11/27/16 17:00 Clumped Platelets Not Reportable 11/27/16 17:00 Plt Clumps, EDTA Not Reportable 11/27/16 17:00 Large Platelets Not Reportable 11/27/16 17:00 Giant Platelets Not Reportable 11/27/16 17:00 Platelet Satelliting Not Reportable 11/27/16 17:00 Plt Morphology Comment Not Reportable 11/27/16 17:00 RBC Morphology Not Reportable 11/27/16 17:00 Dimorphic RBCs Not Reportable 11/27/16 17:00 Polychromasia Not Reportable 11/27/16 17:00 Hypochromasia Not Reportable 11/27/16 17:00 Poikilocytosis Not Reportable 11/27/16 17:00 Anisocytosis 1+ 11/27/16 17:00 Microcytosis Not Reportable 11/27/16 17:00 Macrocytosis Not Reportable 11/27/16 17:00 Spherocytes Not Reportable 11/27/16 17:00 Pappenheimer Bodies Not Reportable 11/27/16 17:00 Sickle Cells Not Reportable 11/27/16 17:00 Target Cells Not Reportable 11/27/16 17:00 Tear Drop Cells Not Reportable 11/27/16 17:00 Ovalocytes Not Reportable 11/27/16 17:00 Helmet Cells Not Reportable 11/27/16 17:00 [place] Bodies Not Reportable 11/27/16 17:00 [place] Rings Not Reportable 11/27/16 17:00 [place] Cells Not Reportable 11/27/16 17:00 Bite Cells Not Reportable 11/27/16 17:00 Crenated Cell Not Reportable 11/27/16 17:00 Elliptocytes Not Reportable 11/27/16 17:00 Acanthocytes (Spur) Not Reportable 11/27/16 17:00 Rouleaux Not Reportable 11/27/16 17:00 Hemoglobin C Crystals Not Reportable 11/27/16 17:00 Schistocytes Not Reportable 11/27/16 17:00 Malaria parasites Not Reportable 11/27/16 17:00 Michael Bodies Not Reportable 11/27/16 17:00 Hem Pathologist Commnt No 11/27/16 17:00 PT 23.9 Sec. (12.2-14.9) H 11/30/16 17:15 INR 2.13 (0.87-1.13) H 11/30/16 17:15 APTT 62.0 Sec. (24.2-36.6) H* 12/04/16 Unknown Fibrinogen 474 mg/dl (211-480) 11/27/16 23:00 Heparin Anti-Xa Level 0.14 U.I./ml (0.3-0.7) L 11/30/16 Unknown Heparin Anti-Xa, Unfract Negative (Negative) 11/30/16 Unknown Sodium 141 mmol/L (137-145) 12/07/16 06:32 Potassium 4.1 mmol/L (3.6-5.0) D 12/07/16 06:32 Chloride 100.6 mmol/L (98-107) 12/07/16 06:32 Carbon Dioxide 26 mmol/L (22-30) 12/07/16 06:32 Anion Gap 19 mmol/L 12/07/16 06:32 BUN 4 mg/dL (9-20) L 12/07/16 06:32 Creatinine 0.2 mg/dL (0.8-1.5) L 12/07/16 06:32 Estimated GFR > 60 ml/min 12/07/16 06:32 BUN/Creatinine Ratio 20.00 % 12/07/16 06:32 Glucose 90 mg/dL (75-100) 12/07/16 06:32 POC Glucose 136 (70-105) H 12/17/16 17:46 Calcium 8.7 mg/dL (8.4-10.2) 12/07/16 06:32 Total Bilirubin 0.3 mg/dL (0.1-1.2) 12/07/16 06:32 Direct Bilirubin 0.2 mg/dL (0-0.2) 11/30/16 04:18 Indirect Bilirubin 0.5 mg/dL 11/30/16 04:18 AST 12 units/L (5-40) 12/07/16 06:32 ALT 21 units/L (7-56) 12/07/16 06:32 Alkaline Phosphatase 83 units/L (35-129) 12/07/16 06:32 Total Protein 6.2 g/dL (6.3-8.2) L 12/07/16 06:32 Albumin 2.9 g/dL (3.9-5) L 12/07/16 06:32 Albumin/Globulin Ratio 0.9 % 12/07/16 06:32 Serotonin Release Assay See scanned report 11/30/16 Unknown Urine Color Yellow (Yellow) 11/30/16 Unknown Urine Turbidity Slightly-cloudy (Clear) 11/30/16 Unknown Urine pH 5.0 (5.0-7.0) 11/30/16 Unknown Ur Specific [place] 1.020 (1.003-1.030) 11/30/16 Unknown Urine Protein 30 mg/dl mg/dL (Negative) 11/30/16 Unknown Urine Glucose (UA) Neg mg/dL (Negative) 11/30/16 Unknown Urine Ketones Neg mg/dL (Negative) 11/30/16 Unknown Urine Blood Sm (Negative) 11/30/16 Unknown Urine Nitrite Neg (Negative) 11/30/16 Unknown Urine Bilirubin Neg (Negative) 11/30/16 Unknown Urine Urobilinogen 2.0 mg/dL (<2.0) 11/30/16 Unknown Ur Leukocyte Esterase Sm (Negative) 11/30/16 Unknown Urine WBC (Auto) 19.0 /HPF (0.0-6.0) H 11/30/16 Unknown Urine RBC (Auto) 5.0 /HPF (0.0-6.0) 11/30/16 Unknown U Epithel Cells (Auto) < 1.0 /HPF (0-13.0) 11/30/16 Unknown Uric Acid Crystals 1+ 11/30/16 Unknown Urine Mucus 1+ /HPF 11/30/16 Unknown Heparin-induced Plt Ab Negative (Negative) 11/30/16 Unknown UF Heparin High Dose 0 % Release (()) 11/30/16 Unknown MIKA UFH Low Dose 0.1 1 % Release (()) 11/30/16 Unknown MIKA UFH Low Dose 0.5 0 % Release (()) 11/30/16 Unknown Blood Type O POSITIVE 11/27/16 02:58 Antibody Screen Negative 11/27/16 02:58
[2016-12-18] MEDS: ROXICODONE PO PRN ×3 (06:04→20:13)
[2016-12-18] MEDS: NOVOLOG SUB-Q SCH ×4 (08:47→23:03)
[2016-12-18] MEDS: DOLOPHINE PO SCH (11:26)
[2016-12-18] MEDS: PEPCID PO SCH ×2 (11:26→23:04)
[2016-12-18] MEDS: ELIQUIS PO SCH ×2 (11:27→23:03)
--- NOTE | 2016-12-18 11:30 | Progress Note ---
Assessment and Plan - Patient Problems (1) Acute respiratory failure with hypoxia Current Visit: Yes Status: Acute Plan to address problem: Continue supportive care, NIPPV as clinically indicated, (2) Morbid (severe) obesity due to excess calories Current Visit: Yes Status: Acute Plan to address problem: Pt counseled regarding balanced diet, increased physical activity, bariatric surgery (3) LIVAN on CPAP Current Visit: Yes Status: Acute Plan to address problem: Continue current care, (4) Pulmonary embolism Current Visit: Yes Status: Acute Qualifiers: Pulmonary embolism type: saddle Chronicity: acute Acute cor pulmonale presence: with acute cor pulmonale Qualified Code(s): I26.02 - Saddle embolus of pulmonary artery with acute cor pulmonale Plan to address problem: S/P EKOS therapy, and IVC filter placement, continue anticoagulation (5) Diabetes Current Visit: Yes Status: Chronic Plan to address problem: ADA diet, insulin, accu check (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 (7) DVT prophylaxis Current Visit: Yes Status: Acute History Interval history: Pt lying in bed, Pt complains of back pain with ambulation. NO new reported nursing events. Will attempt to transfer pt to [facility] under care of initial surgical team. Dr. Maciel/Keshav ([facility], [facility]) Hospitalist Physical - Constitutional Vitals: Temp Pulse Resp BP Pulse Ox 98.1 F 105 H 18 124/79 97 12/18/16 08:27 12/18/16 08:27 12/18/16 08:27 12/18/16 08:27 12/18/16 08:27 General appearance: Present: no acute distress, obese - EENT Eyes: Present: PERRL, EOM intact ENT: hearing intact - Neck Neck: Present: supple - Respiratory Respiratory: bilateral: diminished - Cardiovascular Rhythm: regular Heart Sounds: Present: S1 & S2 - Extremities Extremity abnormal: edema Peripheral Pulses: within normal limits - Abdominal General gastrointestinal: soft, non-tender, non-distended, no hepatomegaly, no splenomegaly - Integumentary Integumentary: Present: clear, dry - Psychiatric Psychiatric: appropriate mood/affect, intact judgment & insight, memory intact, cooperative - Neurologic Neurologic: CNII-XII intact, moves all extremities, no gait normal Results - Labs CBC & Chem 7: 12/07/16 06:32 12/07/16 06:32 Labs: Laboratory Last Values WBC 5.3 K/mm3 (4.5-11.0) 12/07/16 06:32 RBC 3.97 M/mm3 (3.65-5.03) 12/07/16 06:32 Hgb 10.4 gm/dl (11.8-15.2) L 12/07/16 06:32 Hct 32.1 % (35.5-45.6) L 12/07/16 06:32 MCV 81 fl (84-94) L 12/07/16 06:32 MCH 26 pg (28-32) L 12/07/16 06:32 MCHC 33 % (32-34) 12/07/16 06:32 RDW 17.3 % (13.2-15.2) H 12/07/16 06:32 Plt Count 331 K/mm3 (140-440) 12/07/16 06:32 Lymph % (Auto) 32.8 % (13.4-35.0) 12/07/16 06:32 [place] % (Auto) 11.5 % (0.0-7.3) H 12/07/16 06:32 Eos % (Auto) 3.9 % (0.0-4.3) 12/07/16 06:32 Baso % (Auto) 0.9 % (0.0-1.8) 12/07/16 06:32 Lymph # 1.7 K/mm3 (1.2-5.4) 12/07/16 06:32 [place] # 0.6 K/mm3 (0.0-0.8) 12/07/16 06:32 Eos # 0.2 K/mm3 (0.0-0.4) 12/07/16 06:32 Baso # 0.0 K/mm3 (0.0-0.1) 12/07/16 06:32 Add Manual Diff Complete 11/27/16 17:00 Total Counted 100 11/27/16 17:00 Seg Neutrophils % 50.9 % (40.0-70.0) 12/07/16 06:32 Seg Neuts % (Manual) 80.0 % (40.0-70.0) H 11/27/16 17:00 Band Neutrophils % 0 % 11/27/16 17:00 Lymphocytes % (Manual) 9.0 % (13.4-35.0) L 11/27/16 17:00 Reactive Lymphs % (Man) 0 % 11/27/16 17:00 Monocytes % (Manual) 9.0 % (0.0-7.3) H 11/27/16 17:00 Eosinophils % (Manual) 0 % (0.0-4.3) 11/27/16 17:00 Basophils % (Manual) 0 % (0.0-1.8) 11/27/16 17:00 Metamyelocytes % 2.0 % 11/27/16 17:00 Myelocytes % 0 % 11/27/16 17:00 Promyelocytes % 0 % 11/27/16 17:00 Blast Cells % 0 % 11/27/16 17:00 Nucleated RBC % Not Reportable 11/27/16 17:00 Seg Neutrophils # 2.7 K/mm3 (1.8-7.7) 12/07/16 06:32 Seg Neutrophils # Man 7.7 K/mm3 (1.8-7.7) 11/27/16 17:00 Band Neutrophils # 0.0 K/mm3 11/27/16 17:00 Lymphocytes # (Manual) 0.9 K/mm3 (1.2-5.4) L 11/27/16 17:00 Abs React Lymphs (Man) 0.0 K/mm3 11/27/16 17:00 Monocytes # (Manual) 0.9 K/mm3 (0.0-0.8) H 11/27/16 17:00 Eosinophils # (Manual) 0.0 K/mm3 (0.0-0.4) 11/27/16 17:00 Basophils # (Manual) 0.0 K/mm3 (0.0-0.1) 11/27/16 17:00 Metamyelocytes # 0.2 K/mm3 11/27/16 17:00 Myelocytes # 0.0 K/mm3 11/27/16 17:00 Promyelocytes # 0.0 K/mm3 11/27/16 17:00 Blast Cells # 0.0 K/mm3 11/27/16 17:00 WBC Morphology Not Reportable 11/27/16 17:00 Hypersegmented Neuts Not Reportable 11/27/16 17:00 Hyposegmented Neuts Not Reportable 11/27/16 17:00 Hypogranular Neuts Not Reportable 11/27/16 17:00 Smudge Cells Not Reportable 11/27/16 17:00 Toxic Granulation Not Reportable 11/27/16 17:00 Toxic Vacuolation Not Reportable 11/27/16 17:00 Dohle Bodies Not Reportable 11/27/16 17:00 Pelger-Huet Anomaly Not Reportable 11/27/16 17:00 Mati Rods Not Reportable 11/27/16 17:00 Platelet Estimate Consistent w auto 11/27/16 17:00 Clumped Platelets Not Reportable 11/27/16 17:00 Plt Clumps, EDTA Not Reportable 11/27/16 17:00 Large Platelets Not Reportable 11/27/16 17:00 Giant Platelets Not Reportable 11/27/16 17:00 Platelet Satelliting Not Reportable 11/27/16 17:00 Plt Morphology Comment Not Reportable 11/27/16 17:00 RBC Morphology Not Reportable 11/27/16 17:00 Dimorphic RBCs Not Reportable 11/27/16 17:00 Polychromasia Not Reportable 11/27/16 17:00 Hypochromasia Not Reportable 11/27/16 17:00 Poikilocytosis Not Reportable 11/27/16 17:00 Anisocytosis 1+ 11/27/16 17:00 Microcytosis Not Reportable 11/27/16 17:00 Macrocytosis Not Reportable 11/27/16 17:00 Spherocytes Not Reportable 11/27/16 17:00 Pappenheimer Bodies Not Reportable 11/27/16 17:00 Sickle Cells Not Reportable 11/27/16 17:00 Target Cells Not Reportable 11/27/16 17:00 Tear Drop Cells Not Reportable 11/27/16 17:00 Ovalocytes Not Reportable 11/27/16 17:00 Helmet Cells Not Reportable 11/27/16 17:00 Serrato-[place] Bodies Not Reportable 11/27/16 17:00 [place] Rings Not Reportable 11/27/16 17:00 [place] Cells Not Reportable 11/27/16 17:00 Bite Cells Not Reportable 11/27/16 17:00 Crenated Cell Not Reportable 11/27/16 17:00 Elliptocytes Not Reportable 11/27/16 17:00 Acanthocytes (Spur) Not Reportable 11/27/16 17:00 Rouleaux Not Reportable 11/27/16 17:00 Hemoglobin C Crystals Not Reportable 11/27/16 17:00 Schistocytes Not Reportable 11/27/16 17:00 Malaria parasites Not Reportable 11/27/16 17:00 Michael Bodies Not Reportable 11/27/16 17:00 Hem Pathologist Commnt No 11/27/16 17:00 PT 23.9 Sec. (12.2-14.9) H 11/30/16 17:15 INR 2.13 (0.87-1.13) H 11/30/16 17:15 APTT 62.0 Sec. (24.2-36.6) H* 12/04/16 Unknown Fibrinogen 474 mg/dl (211-480) 11/27/16 23:00 Heparin Anti-Xa Level 0.14 U.I./ml (0.3-0.7) L 11/30/16 Unknown Heparin Anti-Xa, Unfract Negative (Negative) 11/30/16 Unknown Sodium 141 mmol/L (137-145) 12/07/16 06:32 Potassium 4.1 mmol/L (3.6-5.0) D 12/07/16 06:32 Chloride 100.6 mmol/L (98-107) 12/07/16 06:32 Carbon Dioxide 26 mmol/L (22-30) 12/07/16 06:32 Anion Gap 19 mmol/L 12/07/16 06:32 BUN 4 mg/dL (9-20) L 12/07/16 06:32 Creatinine 0.2 mg/dL (0.8-1.5) L 12/07/16 06:32 Estimated GFR > 60 ml/min 12/07/16 06:32 BUN/Creatinine Ratio 20.00 % 12/07/16 06:32 Glucose 90 mg/dL (75-100) 12/07/16 06:32 POC Glucose 131 (70-105) H 12/17/16 21:28 Calcium 8.7 mg/dL (8.4-10.2) 12/07/16 06:32 Total Bilirubin 0.3 mg/dL (0.1-1.2) 12/07/16 06:32 Direct Bilirubin 0.2 mg/dL (0-0.2) 11/30/16 04:18 Indirect Bilirubin 0.5 mg/dL 11/30/16 04:18 AST 12 units/L (5-40) 12/07/16 06:32 ALT 21 units/L (7-56) 12/07/16 06:32 Alkaline Phosphatase 83 units/L (35-129) 12/07/16 06:32 Total Protein 6.2 g/dL (6.3-8.2) L 12/07/16 06:32 Albumin 2.9 g/dL (3.9-5) L 12/07/16 06:32 Albumin/Globulin Ratio 0.9 % 12/07/16 06:32 Serotonin Release Assay See scanned report 11/30/16 Unknown Urine Color Yellow (Yellow) 11/30/16 Unknown Urine Turbidity Slightly-cloudy (Clear) 11/30/16 Unknown Urine pH 5.0 (5.0-7.0) 11/30/16 Unknown Ur Specific [place] 1.020 (1.003-1.030) 11/30/16 Unknown Urine Protein 30 mg/dl mg/dL (Negative) 11/30/16 Unknown Urine Glucose (UA) Neg mg/dL (Negative) 11/30/16 Unknown Urine Ketones Neg mg/dL (Negative) 11/30/16 Unknown Urine Blood Sm (Negative) 11/30/16 Unknown Urine Nitrite Neg (Negative) 11/30/16 Unknown Urine Bilirubin Neg (Negative) 11/30/16 Unknown Urine Urobilinogen 2.0 mg/dL (<2.0) 11/30/16 Unknown Ur Leukocyte Esterase Sm (Negative) 11/30/16 Unknown Urine WBC (Auto) 19.0 /HPF (0.0-6.0) H 11/30/16 Unknown Urine RBC (Auto) 5.0 /HPF (0.0-6.0) 11/30/16 Unknown U Epithel Cells (Auto) < 1.0 /HPF (0-13.0) 11/30/16 Unknown Uric Acid Crystals 1+ 11/30/16 Unknown Urine Mucus 1+ /HPF 11/30/16 Unknown Heparin-induced Plt Ab Negative (Negative) 11/30/16 Unknown UF Heparin High Dose 0 % Release (()) 11/30/16 Unknown MIKA UFH Low Dose 0.1 1 % Release (()) 11/30/16 Unknown MIKA UFH Low Dose 0.5 0 % Release (()) 11/30/16 Unknown Blood Type O POSITIVE 11/27/16 02:58 Antibody Screen Negative 11/27/16 02:58
[2016-12-18] MEDS: NYSTOP TP SCH ×2 (20:02→23:12)
[2016-12-19] MEDS: NYSTOP TP SCH ×2 (09:56→21:49)
[2016-12-19] MEDS: DOLOPHINE PO SCH (09:58)
[2016-12-19] MEDS: PEPCID PO SCH ×2 (09:59→21:49)
[2016-12-19] MEDS: NOVOLOG SUB-Q SCH ×4 (09:59→21:48)
[2016-12-19] MEDS: XANAX PO PRN (12:06)
[2016-12-19] MEDS: ROXICODONE PO PRN ×2 (14:22→18:41)
[2016-12-20] MEDS: ROXICODONE PO PRN ×3 (06:22→19:53)
--- NOTE | 2016-12-20 08:31 | Progress Note ---
Assessment and Plan - Patient Problems (1) Acute respiratory failure with hypoxia Current Visit: Yes Status: Resolved (2) Morbid (severe) obesity due to excess calories Current Visit: Yes Status: Acute Plan to address problem: Pt counseled regarding balanced diet, increased physical activity, bariatric surgery (3) LIVAN on CPAP Current Visit: Yes Status: Acute Plan to address problem: Continue current care, (4) Pulmonary embolism Current Visit: Yes Status: Acute Qualifiers: Pulmonary embolism type: saddle Chronicity: acute Acute cor pulmonale presence: with acute cor pulmonale Qualified Code(s): I26.02 - Saddle embolus of pulmonary artery with acute cor pulmonale Plan to address problem: S/P EKOS therapy, and IVC filter placement, continue anticoagulation (5) Diabetes Current Visit: Yes Status: Chronic Plan to address problem: ADA diet, insulin, accu check (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 (7) Osteomyelitis Current Visit: Yes Status: Acute Plan to address problem: IV abx, IVF, supportive care, pain control, Pending transfer to [facility]. (8) DVT prophylaxis Current Visit: Yes Status: Acute History Interval history: Pt lying in bed, Pt complains of back pain with ambulation. NO new reported nursing events. Pt discussed with Dr. Williamson, [facility]. Refused transfer because he "does not have Cardiology team to help with patient care". Pt denies fever, chills, NVD, leg pain, difficulty breathing. Hospitalist Physical - Constitutional Vitals: Temp Pulse Resp BP Pulse Ox 98.3 F 87 18 117/76 97 12/20/16 04:00 12/20/16 04:00 12/20/16 06:22 12/20/16 04:00 12/20/16 04:00 General appearance: Present: no acute distress, obese - EENT Eyes: Present: PERRL, EOM intact ENT: hearing intact - Neck Neck: Present: supple - Respiratory Respiratory effort: normal Respiratory: bilateral: diminished - Cardiovascular Rhythm: regular Heart Sounds: Present: S1 & S2 - Extremities Extremities: no ischemia Extremity abnormal: edema Peripheral Pulses: within normal limits - Abdominal General gastrointestinal: soft, non-tender, non-distended, no hepatomegaly, no splenomegaly - Integumentary Integumentary: Present: clear, dry - Psychiatric Psychiatric: appropriate mood/affect, cooperative - Neurologic Neurologic: CNII-XII intact, moves all extremities, no gait normal Results - Labs CBC & Chem 7: 12/07/16 06:32 12/07/16 06:32 Labs: Laboratory Last Values WBC 5.3 K/mm3 (4.5-11.0) 12/07/16 06:32 RBC 3.97 M/mm3 (3.65-5.03) 12/07/16 06:32 Hgb 10.4 gm/dl (11.8-15.2) L 12/07/16 06:32 Hct 32.1 % (35.5-45.6) L 12/07/16 06:32 MCV 81 fl (84-94) L 12/07/16 06:32 MCH 26 pg (28-32) L 12/07/16 06:32 MCHC 33 % (32-34) 12/07/16 06:32 RDW 17.3 % (13.2-15.2) H 12/07/16 06:32 Plt Count 331 K/mm3 (140-440) 12/07/16 06:32 Lymph % (Auto) 32.8 % (13.4-35.0) 12/07/16 06:32 [place] % (Auto) 11.5 % (0.0-7.3) H 12/07/16 06:32 Eos % (Auto) 3.9 % (0.0-4.3) 12/07/16 06:32 Baso % (Auto) 0.9 % (0.0-1.8) 12/07/16 06:32 Lymph # 1.7 K/mm3 (1.2-5.4) 12/07/16 06:32 [place] # 0.6 K/mm3 (0.0-0.8) 12/07/16 06:32 Eos # 0.2 K/mm3 (0.0-0.4) 12/07/16 06:32 Baso # 0.0 K/mm3 (0.0-0.1) 12/07/16 06:32 Add Manual Diff Complete 11/27/16 17:00 Total Counted 100 11/27/16 17:00 Seg Neutrophils % 50.9 % (40.0-70.0) 12/07/16 06:32 Seg Neuts % (Manual) 80.0 % (40.0-70.0) H 11/27/16 17:00 Band Neutrophils % 0 % 11/27/16 17:00 Lymphocytes % (Manual) 9.0 % (13.4-35.0) L 11/27/16 17:00 Reactive Lymphs % (Man) 0 % 11/27/16 17:00 Monocytes % (Manual) 9.0 % (0.0-7.3) H 11/27/16 17:00 Eosinophils % (Manual) 0 % (0.0-4.3) 11/27/16 17:00 Basophils % (Manual) 0 % (0.0-1.8) 11/27/16 17:00 Metamyelocytes % 2.0 % 11/27/16 17:00 Myelocytes % 0 % 11/27/16 17:00 Promyelocytes % 0 % 11/27/16 17:00 Blast Cells % 0 % 11/27/16 17:00 Nucleated RBC % Not Reportable 11/27/16 17:00 Seg Neutrophils # 2.7 K/mm3 (1.8-7.7) 12/07/16 06:32 Seg Neutrophils # Man 7.7 K/mm3 (1.8-7.7) 11/27/16 17:00 Band Neutrophils # 0.0 K/mm3 11/27/16 17:00 Lymphocytes # (Manual) 0.9 K/mm3 (1.2-5.4) L 11/27/16 17:00 Abs React Lymphs (Man) 0.0 K/mm3 11/27/16 17:00 Monocytes # (Manual) 0.9 K/mm3 (0.0-0.8) H 11/27/16 17:00 Eosinophils # (Manual) 0.0 K/mm3 (0.0-0.4) 11/27/16 17:00 Basophils # (Manual) 0.0 K/mm3 (0.0-0.1) 11/27/16 17:00 Metamyelocytes # 0.2 K/mm3 11/27/16 17:00 Myelocytes # 0.0 K/mm3 11/27/16 17:00 Promyelocytes # 0.0 K/mm3 11/27/16 17:00 Blast Cells # 0.0 K/mm3 11/27/16 17:00 WBC Morphology Not Reportable 11/27/16 17:00 Hypersegmented Neuts Not Reportable 11/27/16 17:00 Hyposegmented Neuts Not Reportable 11/27/16 17:00 Hypogranular Neuts Not Reportable 11/27/16 17:00 Smudge Cells Not Reportable 11/27/16 17:00 Toxic Granulation Not Reportable 11/27/16 17:00 Toxic Vacuolation Not Reportable 11/27/16 17:00 Dohle Bodies Not Reportable 11/27/16 17:00 Pelger-Huet Anomaly Not Reportable 11/27/16 17:00 Mati Rods Not Reportable 11/27/16 17:00 Platelet Estimate Consistent w auto 11/27/16 17:00 Clumped Platelets Not Reportable 11/27/16 17:00 Plt Clumps, EDTA Not Reportable 11/27/16 17:00 Large Platelets Not Reportable 11/27/16 17:00 Giant Platelets Not Reportable 11/27/16 17:00 Platelet Satelliting Not Reportable 11/27/16 17:00 Plt Morphology Comment Not Reportable 11/27/16 17:00 RBC Morphology Not Reportable 11/27/16 17:00 Dimorphic RBCs Not Reportable 11/27/16 17:00 Polychromasia Not Reportable 11/27/16 17:00 Hypochromasia Not Reportable 11/27/16 17:00 Poikilocytosis Not Reportable 11/27/16 17:00 Anisocytosis 1+ 11/27/16 17:00 Microcytosis Not Reportable 11/27/16 17:00 Macrocytosis Not Reportable 11/27/16 17:00 Spherocytes Not Reportable 11/27/16 17:00 Pappenheimer Bodies Not Reportable 11/27/16 17:00 Sickle Cells Not Reportable 11/27/16 17:00 Target Cells Not Reportable 11/27/16 17:00 Tear Drop Cells Not Reportable 11/27/16 17:00 Ovalocytes Not Reportable 11/27/16 17:00 Helmet Cells Not Reportable 11/27/16 17:00 Serrato-[place] Bodies Not Reportable 11/27/16 17:00 [place] Rings Not Reportable 11/27/16 17:00 [place] Cells Not Reportable 11/27/16 17:00 Bite Cells Not Reportable 11/27/16 17:00 Crenated Cell Not Reportable 11/27/16 17:00 Elliptocytes Not Reportable 11/27/16 17:00 Acanthocytes (Spur) Not Reportable 11/27/16 17:00 Rouleaux Not Reportable 11/27/16 17:00 Hemoglobin C Crystals Not Reportable 11/27/16 17:00 Schistocytes Not Reportable 11/27/16 17:00 Malaria parasites Not Reportable 11/27/16 17:00 Michael Bodies Not Reportable 11/27/16 17:00 Hem Pathologist Commnt No 11/27/16 17:00 PT 23.9 Sec. (12.2-14.9) H 11/30/16 17:15 INR 2.13 (0.87-1.13) H 11/30/16 17:15 APTT 62.0 Sec. (24.2-36.6) H* 12/04/16 Unknown Fibrinogen 474 mg/dl (211-480) 11/27/16 23:00 Heparin Anti-Xa Level 0.14 U.I./ml (0.3-0.7) L 11/30/16 Unknown Heparin Anti-Xa, Unfract Negative (Negative) 11/30/16 Unknown Sodium 141 mmol/L (137-145) 12/07/16 06:32 Potassium 4.1 mmol/L (3.6-5.0) D 12/07/16 06:32 Chloride 100.6 mmol/L (98-107) 12/07/16 06:32 Carbon Dioxide 26 mmol/L (22-30) 12/07/16 06:32 Anion Gap 19 mmol/L 12/07/16 06:32 BUN 4 mg/dL (9-20) L 12/07/16 06:32 Creatinine 0.2 mg/dL (0.8-1.5) L 12/07/16 06:32 Estimated GFR > 60 ml/min 12/07/16 06:32 BUN/Creatinine Ratio 20.00 % 12/07/16 06:32 Glucose 90 mg/dL (75-100) 12/07/16 06:32 POC Glucose 151 (70-105) H 12/19/16 20:01 Calcium 8.7 mg/dL (8.4-10.2) 12/07/16 06:32 Total Bilirubin 0.3 mg/dL (0.1-1.2) 12/07/16 06:32 Direct Bilirubin 0.2 mg/dL (0-0.2) 11/30/16 04:18 Indirect Bilirubin 0.5 mg/dL 11/30/16 04:18 AST 12 units/L (5-40) 12/07/16 06:32 ALT 21 units/L (7-56) 12/07/16 06:32 Alkaline Phosphatase 83 units/L (35-129) 12/07/16 06:32 Total Protein 6.2 g/dL (6.3-8.2) L 12/07/16 06:32 Albumin 2.9 g/dL (3.9-5) L 12/07/16 06:32 Albumin/Globulin Ratio 0.9 % 12/07/16 06:32 Serotonin Release Assay See scanned report 11/30/16 Unknown Urine Color Yellow (Yellow) 11/30/16 Unknown Urine Turbidity Slightly-cloudy (Clear) 11/30/16 Unknown Urine pH 5.0 (5.0-7.0) 11/30/16 Unknown Ur Specific [place] 1.020 (1.003-1.030) 11/30/16 Unknown Urine Protein 30 mg/dl mg/dL (Negative) 11/30/16 Unknown Urine Glucose (UA) Neg mg/dL (Negative) 11/30/16 Unknown Urine Ketones Neg mg/dL (Negative) 11/30/16 Unknown Urine Blood Sm (Negative) 11/30/16 Unknown Urine Nitrite Neg (Negative) 11/30/16 Unknown Urine Bilirubin Neg (Negative) 11/30/16 Unknown Urine Urobilinogen 2.0 mg/dL (<2.0) 11/30/16 Unknown Ur Leukocyte Esterase Sm (Negative) 11/30/16 Unknown Urine WBC (Auto) 19.0 /HPF (0.0-6.0) H 11/30/16 Unknown Urine RBC (Auto) 5.0 /HPF (0.0-6.0) 11/30/16 Unknown U Epithel Cells (Auto) < 1.0 /HPF (0-13.0) 11/30/16 Unknown Uric Acid Crystals 1+ 11/30/16 Unknown Urine Mucus 1+ /HPF 11/30/16 Unknown Heparin-induced Plt Ab Negative (Negative) 11/30/16 Unknown UF Heparin High Dose 0 % Release (()) 11/30/16 Unknown MIKA UFH Low Dose 0.1 1 % Release (()) 11/30/16 Unknown MIKA UFH Low Dose 0.5 0 % Release (()) 11/30/16 Unknown Blood Type O POSITIVE 11/27/16 02:58 Antibody Screen Negative 11/27/16 02:58
[2016-12-20] MEDS: NOVOLOG SUB-Q SCH ×2 (09:35→13:32)
[2016-12-20] MEDS: DOLOPHINE PO SCH (09:36)
[2016-12-20] MEDS: NYSTOP TP SCH ×2 (09:37→22:04)
[2016-12-20] MEDS: PEPCID PO SCH ×2 (09:37→21:49)
[2016-12-20] MEDS: XANAX PO PRN ×2 (11:56→21:49)
[2016-12-20] MEDS: CARAFATE PO SCH ×2 (17:19→21:49)
[2016-12-21] MEDS: ROXICODONE PO PRN ×3 (06:47→18:30)
--- NOTE | 2016-12-21 08:49 | Gastroenterology Progress Note ---
Assessment and Plan PEG was safely pulled out w/o difficulty and bandage applied. OK to resume diet now and also OK to restart Eliquis today, as per primary team. I will stop following daily, but please do not hesitate to contact me with any questions. Thank you! Subjective Date of service: 12/21/16 Principal diagnosis: PEG removal Interval history: Pt seen this AM. Has been off Eliquis for 2 days. Objective - Constitutional Vitals: Temp Pulse Resp BP Pulse Ox 98.2 F 64 20 110/82 98 12/21/16 05:23 12/21/16 05:23 12/21/16 05:23 12/21/16 05:23 12/21/16 05:23 General appearance: no acute distress - Neck Neck: supple - Respiratory Respiratory: bilateral: CTA - Cardiovascular Rhythm: regular Heart Sounds: Present: S1 & S2 - Gastrointestinal General gastrointestinal: Present: soft, non-tender, non-distended, normal bowel sounds, other (PEG intact) - Neurologic Neurological: alert and oriented x3 - Psychiatric Psychiatric: appropriate mood/affect - Labs CBC & Chem 7: 12/07/16 06:32 12/07/16 06:32 Labs: Laboratory Results - last 24 hr 12/20/16 12/20/16 12/20/16 08:14 13:11 17:33 POC Glucose 120 H 153 H 115 H
[2016-12-21] MEDS: DOLOPHINE PO SCH (10:10)
[2016-12-21] MEDS: PEPCID PO SCH ×2 (10:10→22:00)
[2016-12-21] MEDS: CARAFATE PO SCH ×4 (10:10→21:59)
[2016-12-21] MEDS: NOVOLOG SUB-Q SCH ×4 (10:12→22:03)
[2016-12-21] MEDS: NYSTOP TP SCH ×2 (10:12→22:01)
[2016-12-21] MEDS: XANAX PO PRN ×2 (11:48→20:41)
--- NOTE | 2016-12-21 13:42 | Progress Note ---
Assessment and Plan - Patient Problems (1) Acute respiratory failure with hypoxia Current Visit: Yes Status: Resolved Plan to address problem: Continue supportive care, NIPPV as clinically indicated, (2) Morbid (severe) obesity due to excess calories Current Visit: Yes Status: Acute Plan to address problem: Pt counseled regarding balanced diet, increased physical activity, bariatric surgery (3) LIVAN on CPAP Current Visit: Yes Status: Acute Plan to address problem: Continue current care, (4) Pulmonary embolism Current Visit: Yes Status: Acute Qualifiers: Pulmonary embolism type: saddle Chronicity: acute Acute cor pulmonale presence: with acute cor pulmonale Qualified Code(s): I26.02 - Saddle embolus of pulmonary artery with acute cor pulmonale Plan to address problem: S/P EKOS therapy, and IVC filter placement, continue anticoagulation (5) Diabetes Current Visit: Yes Status: Chronic Plan to address problem: ADA diet, insulin, accu check (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 (7) Osteomyelitis Current Visit: Yes Status: Acute Plan to address problem: IV abx, IVF, supportive care, pain control, Pending transfer to [facility]. (8) DVT prophylaxis Current Visit: Yes Status: Acute History Interval history: Pt lying in bed, Pt complains of back pain with ambulation. NO new reported nursing events. Pt denies any new am complaints. Hospitalist Physical - Constitutional Vitals: Temp Pulse Resp BP Pulse Ox 98.2 F 76 20 118/80 94 12/21/16 12:00 12/21/16 12:00 12/21/16 12:00 12/21/16 12:00 12/21/16 12:00 General appearance: Present: no acute distress, obese - EENT Eyes: Present: PERRL, EOM intact ENT: hearing intact - Neck Neck: Present: supple - Respiratory Respiratory: bilateral: CTA - Cardiovascular Rhythm: regular Heart Sounds: Present: S1 & S2 - Extremities Extremities: no ischemia Extremity abnormal: edema Peripheral Pulses: within normal limits - Abdominal General gastrointestinal: soft, non-tender, non-distended, normal bowel sounds, no hepatomegaly, no splenomegaly - Integumentary Integumentary: Present: clear, warm, dry - Psychiatric Psychiatric: appropriate mood/affect, cooperative - Neurologic Neurologic: CNII-XII intact Results - Labs CBC & Chem 7: 12/07/16 06:32 12/07/16 06:32 Labs: Laboratory Last Values WBC 5.3 K/mm3 (4.5-11.0) 12/07/16 06:32 RBC 3.97 M/mm3 (3.65-5.03) 12/07/16 06:32 Hgb 10.4 gm/dl (11.8-15.2) L 12/07/16 06:32 Hct 32.1 % (35.5-45.6) L 12/07/16 06:32 MCV 81 fl (84-94) L 12/07/16 06:32 MCH 26 pg (28-32) L 12/07/16 06:32 MCHC 33 % (32-34) 12/07/16 06:32 RDW 17.3 % (13.2-15.2) H 12/07/16 06:32 Plt Count 331 K/mm3 (140-440) 12/07/16 06:32 Lymph % (Auto) 32.8 % (13.4-35.0) 12/07/16 06:32 [place] % (Auto) 11.5 % (0.0-7.3) H 12/07/16 06:32 Eos % (Auto) 3.9 % (0.0-4.3) 12/07/16 06:32 Baso % (Auto) 0.9 % (0.0-1.8) 12/07/16 06:32 Lymph # 1.7 K/mm3 (1.2-5.4) 12/07/16 06:32 [place] # 0.6 K/mm3 (0.0-0.8) 12/07/16 06:32 Eos # 0.2 K/mm3 (0.0-0.4) 12/07/16 06:32 Baso # 0.0 K/mm3 (0.0-0.1) 12/07/16 06:32 Add Manual Diff Complete 11/27/16 17:00 Total Counted 100 11/27/16 17:00 Seg Neutrophils % 50.9 % (40.0-70.0) 12/07/16 06:32 Seg Neuts % (Manual) 80.0 % (40.0-70.0) H 11/27/16 17:00 Band Neutrophils % 0 % 11/27/16 17:00 Lymphocytes % (Manual) 9.0 % (13.4-35.0) L 11/27/16 17:00 Reactive Lymphs % (Man) 0 % 11/27/16 17:00 Monocytes % (Manual) 9.0 % (0.0-7.3) H 11/27/16 17:00 Eosinophils % (Manual) 0 % (0.0-4.3) 11/27/16 17:00 Basophils % (Manual) 0 % (0.0-1.8) 11/27/16 17:00 Metamyelocytes % 2.0 % 11/27/16 17:00 Myelocytes % 0 % 11/27/16 17:00 Promyelocytes % 0 % 11/27/16 17:00 Blast Cells % 0 % 11/27/16 17:00 Nucleated RBC % Not Reportable 11/27/16 17:00 Seg Neutrophils # 2.7 K/mm3 (1.8-7.7) 12/07/16 06:32 Seg Neutrophils # Man 7.7 K/mm3 (1.8-7.7) 11/27/16 17:00 Band Neutrophils # 0.0 K/mm3 11/27/16 17:00 Lymphocytes # (Manual) 0.9 K/mm3 (1.2-5.4) L 11/27/16 17:00 Abs React Lymphs (Man) 0.0 K/mm3 11/27/16 17:00 Monocytes # (Manual) 0.9 K/mm3 (0.0-0.8) H 11/27/16 17:00 Eosinophils # (Manual) 0.0 K/mm3 (0.0-0.4) 11/27/16 17:00 Basophils # (Manual) 0.0 K/mm3 (0.0-0.1) 11/27/16 17:00 Metamyelocytes # 0.2 K/mm3 11/27/16 17:00 Myelocytes # 0.0 K/mm3 11/27/16 17:00 Promyelocytes # 0.0 K/mm3 11/27/16 17:00 Blast Cells # 0.0 K/mm3 11/27/16 17:00 WBC Morphology Not Reportable 11/27/16 17:00 Hypersegmented Neuts Not Reportable 11/27/16 17:00 Hyposegmented Neuts Not Reportable 11/27/16 17:00 Hypogranular Neuts Not Reportable 11/27/16 17:00 Smudge Cells Not Reportable 11/27/16 17:00 Toxic Granulation Not Reportable 11/27/16 17:00 Toxic Vacuolation Not Reportable 11/27/16 17:00 Dohle Bodies Not Reportable 11/27/16 17:00 Pelger-Huet Anomaly Not Reportable 11/27/16 17:00 Mati Rods Not Reportable 11/27/16 17:00 Platelet Estimate Consistent w auto 11/27/16 17:00 Clumped Platelets Not Reportable 11/27/16 17:00 Plt Clumps, EDTA Not Reportable 11/27/16 17:00 Large Platelets Not Reportable 11/27/16 17:00 Giant Platelets Not Reportable 11/27/16 17:00 Platelet Satelliting Not Reportable 11/27/16 17:00 Plt Morphology Comment Not Reportable 11/27/16 17:00 RBC Morphology Not Reportable 11/27/16 17:00 Dimorphic RBCs Not Reportable 11/27/16 17:00 Polychromasia Not Reportable 11/27/16 17:00 Hypochromasia Not Reportable 11/27/16 17:00 Poikilocytosis Not Reportable 11/27/16 17:00 Anisocytosis 1+ 11/27/16 17:00 Microcytosis Not Reportable 11/27/16 17:00 Macrocytosis Not Reportable 11/27/16 17:00 Spherocytes Not Reportable 11/27/16 17:00 Pappenheimer Bodies Not Reportable 11/27/16 17:00 Sickle Cells Not Reportable 11/27/16 17:00 Target Cells Not Reportable 11/27/16 17:00 Tear Drop Cells Not Reportable 11/27/16 17:00 Ovalocytes Not Reportable 11/27/16 17:00 Helmet Cells Not Reportable 11/27/16 17:00 [place] Bodies Not Reportable 11/27/16 17:00 [place] Rings Not Reportable 11/27/16 17:00 [place] Cells Not Reportable 11/27/16 17:00 Bite Cells Not Reportable 11/27/16 17:00 Crenated Cell Not Reportable 11/27/16 17:00 Elliptocytes Not Reportable 11/27/16 17:00 Acanthocytes (Spur) Not Reportable 11/27/16 17:00 Rouleaux Not Reportable 11/27/16 17:00 Hemoglobin C Crystals Not Reportable 11/27/16 17:00 Schistocytes Not Reportable 11/27/16 17:00 Malaria parasites Not Reportable 11/27/16 17:00 Michael Bodies Not Reportable 11/27/16 17:00 Hem Pathologist Commnt No 11/27/16 17:00 PT 23.9 Sec. (12.2-14.9) H 11/30/16 17:15 INR 2.13 (0.87-1.13) H 11/30/16 17:15 APTT 62.0 Sec. (24.2-36.6) H* 12/04/16 Unknown Fibrinogen 474 mg/dl (211-480) 11/27/16 23:00 Heparin Anti-Xa Level 0.14 U.I./ml (0.3-0.7) L 11/30/16 Unknown Heparin Anti-Xa, Unfract Negative (Negative) 11/30/16 Unknown Sodium 141 mmol/L (137-145) 12/07/16 06:32 Potassium 4.1 mmol/L (3.6-5.0) D 12/07/16 06:32 Chloride 100.6 mmol/L (98-107) 12/07/16 06:32 Carbon Dioxide 26 mmol/L (22-30) 12/07/16 06:32 Anion Gap 19 mmol/L 12/07/16 06:32 BUN 4 mg/dL (9-20) L 12/07/16 06:32 Creatinine 0.2 mg/dL (0.8-1.5) L 12/07/16 06:32 Estimated GFR > 60 ml/min 12/07/16 06:32 BUN/Creatinine Ratio 20.00 % 12/07/16 06:32 Glucose 90 mg/dL (75-100) 12/07/16 06:32 POC Glucose 115 (70-105) H 12/20/16 17:33 Calcium 8.7 mg/dL (8.4-10.2) 12/07/16 06:32 Total Bilirubin 0.3 mg/dL (0.1-1.2) 12/07/16 06:32 Direct Bilirubin 0.2 mg/dL (0-0.2) 11/30/16 04:18 Indirect Bilirubin 0.5 mg/dL 11/30/16 04:18 AST 12 units/L (5-40) 12/07/16 06:32 ALT 21 units/L (7-56) 12/07/16 06:32 Alkaline Phosphatase 83 units/L (35-129) 12/07/16 06:32 Total Protein 6.2 g/dL (6.3-8.2) L 12/07/16 06:32 Albumin 2.9 g/dL (3.9-5) L 12/07/16 06:32 Albumin/Globulin Ratio 0.9 % 12/07/16 06:32 Serotonin Release Assay See scanned report 11/30/16 Unknown Urine Color Yellow (Yellow) 11/30/16 Unknown Urine Turbidity Slightly-cloudy (Clear) 11/30/16 Unknown Urine pH 5.0 (5.0-7.0) 11/30/16 Unknown Ur Specific [place] 1.020 (1.003-1.030) 11/30/16 Unknown Urine Protein 30 mg/dl mg/dL (Negative) 11/30/16 Unknown Urine Glucose (UA) Neg mg/dL (Negative) 11/30/16 Unknown Urine Ketones Neg mg/dL (Negative) 11/30/16 Unknown Urine Blood Sm (Negative) 11/30/16 Unknown Urine Nitrite Neg (Negative) 11/30/16 Unknown Urine Bilirubin Neg (Negative) 11/30/16 Unknown Urine Urobilinogen 2.0 mg/dL (<2.0) 11/30/16 Unknown Ur Leukocyte Esterase Sm (Negative) 11/30/16 Unknown Urine WBC (Auto) 19.0 /HPF (0.0-6.0) H 11/30/16 Unknown Urine RBC (Auto) 5.0 /HPF (0.0-6.0) 11/30/16 Unknown U Epithel Cells (Auto) < 1.0 /HPF (0-13.0) 11/30/16 Unknown Uric Acid Crystals 1+ 11/30/16 Unknown Urine Mucus 1+ /HPF 11/30/16 Unknown Heparin-induced Plt Ab Negative (Negative) 12/30/16 Unknown UF Heparin High Dose 0 % Release (()) 11/30/16 Unknown MIKA UFH Low Dose 0.1 1 % Release (()) 11/30/16 Unknown MIKA UFH Low Dose 0.5 0 % Release (()) 11/30/16 Unknown Blood Type O POSITIVE 11/27/16 02:58 Antibody Screen Negative 11/27/16 02:58
[2016-12-21] MEDS: ELIQUIS PO SCH ×2 (14:29→22:00)
[2016-12-21] MEDS ORDERED: ELIQUIS PO SCH (22:00)
[2016-12-22] MEDS: ROXICODONE PO PRN ×3 (06:19→18:48)
[2016-12-22] MEDS: PEPCID PO SCH ×2 (11:02→21:53)
[2016-12-22] MEDS: ELIQUIS PO SCH ×2 (11:03→21:54)
[2016-12-22] MEDS: DOLOPHINE PO SCH (11:04)
[2016-12-22] MEDS: CARAFATE PO SCH ×3 (11:06→21:54)
[2016-12-22] MEDS: NOVOLOG SUB-Q SCH ×4 (11:07→21:57)
[2016-12-22] MEDS: XANAX PO PRN ×2 (12:54→21:54)
[2016-12-22] MEDS: NYSTOP TP SCH ×2 (18:49→21:56)
[2016-12-23] MEDS: ROXICODONE PO PRN ×3 (02:09→20:46)
--- NOTE | 2016-12-23 08:12 | Progress Note ---
Assessment and Plan - Patient Problems (1) Acute respiratory failure with hypoxia Current Visit: Yes Status: Resolved Plan to address problem: Continue supportive care, NIPPV as clinically indicated, (2) Morbid (severe) obesity due to excess calories Current Visit: Yes Status: Acute Plan to address problem: Pt counseled regarding balanced diet, increased physical activity, bariatric surgery (3) LIVAN on CPAP Current Visit: Yes Status: Acute Plan to address problem: Continue current care, (4) Pulmonary embolism Current Visit: Yes Status: Acute Qualifiers: Pulmonary embolism type: saddle Chronicity: acute Acute cor pulmonale presence: with acute cor pulmonale Qualified Code(s): I26.02 - Saddle embolus of pulmonary artery with acute cor pulmonale Plan to address problem: S/P EKOS therapy, and IVC filter placement, continue anticoagulation (5) Diabetes Current Visit: Yes Status: Chronic Plan to address problem: ADA diet, insulin, accu check (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 repeat lumbar spine MRI (7) Osteomyelitis Current Visit: Yes Status: Acute Plan to address problem: IV abx, IVF, supportive care, pain control, Pending transfer to [facility]. (8) DVT prophylaxis Current Visit: Yes Status: Acute History Interval history: Pt lying in bed, Pt complains of back pain with ambulation. NO new reported nursing events. Pt denies any new am complaints.discussed care plan with patient and father. Hospitalist Physical - Constitutional Vitals: Temp Pulse Resp BP Pulse Ox 98.0 F 75 20 110/61 95 12/23/16 07:35 12/23/16 07:35 12/23/16 07:35 12/23/16 07:35 12/23/16 07:35 General appearance: Present: no acute distress, obese - EENT Eyes: Present: PERRL ENT: hearing intact - Neck Neck: Present: supple - Respiratory Respiratory: bilateral: CTA - Cardiovascular Rhythm: regular - Extremities Extremities: no ischemia - Abdominal General gastrointestinal: soft, non-tender, non-distended - Integumentary Integumentary: Present: clear, dry - Psychiatric Psychiatric: appropriate mood/affect, cooperative - Neurologic Neurologic: CNII-XII intact Results - Labs CBC & Chem 7: 12/07/16 06:32 12/07/16 06:32 Labs: Laboratory Last Values WBC 5.3 K/mm3 (4.5-11.0) 12/07/16 06:32 RBC 3.97 M/mm3 (3.65-5.03) 12/07/16 06:32 Hgb 10.4 gm/dl (11.8-15.2) L 12/07/16 06:32 Hct 32.1 % (35.5-45.6) L 12/07/16 06:32 MCV 81 fl (84-94) L 12/07/16 06:32 MCH 26 pg (28-32) L 12/07/16 06:32 MCHC 33 % (32-34) 12/07/16 06:32 RDW 17.3 % (13.2-15.2) H 12/07/16 06:32 Plt Count 331 K/mm3 (140-440) 12/07/16 06:32 Lymph % (Auto) 32.8 % (13.4-35.0) 12/07/16 06:32 [place] % (Auto) 11.5 % (0.0-7.3) H 12/07/16 06:32 Eos % (Auto) 3.9 % (0.0-4.3) 12/07/16 06:32 Baso % (Auto) 0.9 % (0.0-1.8) 12/07/16 06:32 Lymph # 1.7 K/mm3 (1.2-5.4) 12/07/16 06:32 [place] # 0.6 K/mm3 (0.0-0.8) 12/07/16 06:32 Eos # 0.2 K/mm3 (0.0-0.4) 12/07/16 06:32 Baso # 0.0 K/mm3 (0.0-0.1) 12/07/16 06:32 Add Manual Diff Complete 11/27/16 17:00 Total Counted 100 11/27/16 17:00 Seg Neutrophils % 50.9 % (40.0-70.0) 12/07/16 06:32 Seg Neuts % (Manual) 80.0 % (40.0-70.0) H 11/27/16 17:00 Band Neutrophils % 0 % 11/27/16 17:00 Lymphocytes % (Manual) 9.0 % (13.4-35.0) L 11/27/16 17:00 Reactive Lymphs % (Man) 0 % 11/27/16 17:00 Monocytes % (Manual) 9.0 % (0.0-7.3) H 11/27/16 17:00 Eosinophils % (Manual) 0 % (0.0-4.3) 11/27/16 17:00 Basophils % (Manual) 0 % (0.0-1.8) 11/27/16 17:00 Metamyelocytes % 2.0 % 11/27/16 17:00 Myelocytes % 0 % 11/27/16 17:00 Promyelocytes % 0 % 11/27/16 17:00 Blast Cells % 0 % 11/27/16 17:00 Nucleated RBC % Not Reportable 11/27/16 17:00 Seg Neutrophils # 2.7 K/mm3 (1.8-7.7) 12/07/16 06:32 Seg Neutrophils # Man 7.7 K/mm3 (1.8-7.7) 11/27/16 17:00 Band Neutrophils # 0.0 K/mm3 11/27/16 17:00 Lymphocytes # (Manual) 0.9 K/mm3 (1.2-5.4) L 11/27/16 17:00 Abs React Lymphs (Man) 0.0 K/mm3 11/27/16 17:00 Monocytes # (Manual) 0.9 K/mm3 (0.0-0.8) H 11/27/16 17:00 Eosinophils # (Manual) 0.0 K/mm3 (0.0-0.4) 11/27/16 17:00 Basophils # (Manual) 0.0 K/mm3 (0.0-0.1) 11/27/16 17:00 Metamyelocytes # 0.2 K/mm3 11/27/16 17:00 Myelocytes # 0.0 K/mm3 11/27/16 17:00 Promyelocytes # 0.0 K/mm3 11/27/16 17:00 Blast Cells # 0.0 K/mm3 11/27/16 17:00 WBC Morphology Not Reportable 11/27/16 17:00 Hypersegmented Neuts Not Reportable 11/27/16 17:00 Hyposegmented Neuts Not Reportable 11/27/16 17:00 Hypogranular Neuts Not Reportable 11/27/16 17:00 Smudge Cells Not Reportable 11/27/16 17:00 Toxic Granulation Not Reportable 11/27/16 17:00 Toxic Vacuolation Not Reportable 11/27/16 17:00 Dohle Bodies Not Reportable 11/27/16 17:00 Pelger-[place]uet Anomaly Not Reportable 11/27/16 17:00 Mati Rods Not Reportable 11/27/16 17:00 Platelet Estimate Consistent w auto 11/27/16 17:00 Clumped Platelets Not Reportable 11/27/16 17:00 Plt Clumps, EDTA Not Reportable 11/27/16 17:00 Large Platelets Not Reportable 11/27/16 17:00 Giant Platelets Not Reportable 11/27/16 17:00 Platelet Satelliting Not Reportable 11/27/16 17:00 Plt Morphology Comment Not Reportable 11/27/16 17:00 RBC Morphology Not Reportable 11/27/16 17:00 Dimorphic RBCs Not Reportable 11/27/16 17:00 Polychromasia Not Reportable 11/27/16 17:00 Hypochromasia Not Reportable 11/27/16 17:00 Poikilocytosis Not Reportable 11/27/16 17:00 Anisocytosis 1+ 11/27/16 17:00 Microcytosis Not Reportable 11/27/16 17:00 Macrocytosis Not Reportable 11/27/16 17:00 Spherocytes Not Reportable 11/27/16 17:00 Pappenheimer Bodies Not Reportable 11/27/16 17:00 Sickle Cells Not Reportable 11/27/16 17:00 Target Cells Not Reportable 11/27/16 17:00 Tear Drop Cells Not Reportable 11/27/16 17:00 Ovalocytes Not Reportable 11/27/16 17:00 Helmet Cells Not Reportable 11/27/16 17:00 Serrato-[place] Bodies Not Reportable 11/27/16 17:00 [place] Rings Not Reportable 11/27/16 17:00 [place] Cells Not Reportable 11/27/16 17:00 Bite Cells Not Reportable 11/27/16 17:00 Crenated Cell Not Reportable 11/27/16 17:00 Elliptocytes Not Reportable 11/27/16 17:00 Acanthocytes (Spur) Not Reportable 11/27/16 17:00 Rouleaux Not Reportable 11/27/16 17:00 Hemoglobin C Crystals Not Reportable 11/27/16 17:00 Schistocytes Not Reportable 11/27/16 17:00 Malaria parasites Not Reportable 11/27/16 17:00 Michael Bodies Not Reportable 11/27/16 17:00 Hem Pathologist Commnt No 11/27/16 17:00 PT 23.9 Sec. (12.2-14.9) H 11/30/16 17:15 INR 2.13 (0.87-1.13) H 11/30/16 17:15 APTT 62.0 Sec. (24.2-36.6) H* 12/04/16 Unknown Fibrinogen 474 mg/dl (211-480) 11/27/16 23:00 Heparin Anti-Xa Level 0.14 U.I./ml (0.3-0.7) L 11/30/16 Unknown Heparin Anti-Xa, Unfract Negative (Negative) 11/30/16 Unknown Sodium 141 mmol/L (137-145) 12/07/16 06:32 Potassium 4.1 mmol/L (3.6-5.0) D 12/07/16 06:32 Chloride 100.6 mmol/L (98-107) 12/07/16 06:32 Carbon Dioxide 26 mmol/L (22-30) 12/07/16 06:32 Anion Gap 19 mmol/L 12/07/16 06:32 BUN 4 mg/dL (9-20) L 12/07/16 06:32 Creatinine 0.2 mg/dL (0.8-1.5) L 12/07/16 06:32 Estimated GFR > 60 ml/min 12/07/16 06:32 BUN/Creatinine Ratio 20.00 % 12/07/16 06:32 Glucose 90 mg/dL (75-100) 12/07/16 06:32 POC Glucose 127 (70-105) H 12/22/16 21:30 Calcium 8.7 mg/dL (8.4-10.2) 12/07/16 06:32 Total Bilirubin 0.3 mg/dL (0.1-1.2) 12/07/16 06:32 Direct Bilirubin 0.2 mg/dL (0-0.2) 11/30/16 04:18 Indirect Bilirubin 0.5 mg/dL 11/30/16 04:18 AST 12 units/L (5-40) 12/07/16 06:32 ALT 21 units/L (7-56) 12/07/16 06:32 Alkaline Phosphatase 83 units/L (35-129) 12/07/16 06:32 Total Protein 6.2 g/dL (6.3-8.2) L 12/07/16 06:32 Albumin 2.9 g/dL (3.9-5) L 12/07/16 06:32 Albumin/Globulin Ratio 0.9 % 12/07/16 06:32 Serotonin Release Assay See scanned report 11/30/16 Unknown Urine Color Yellow (Yellow) 11/30/16 Unknown Urine Turbidity Slightly-cloudy (Clear) 11/30/16 Unknown Urine pH 5.0 (5.0-7.0) 11/30/16 Unknown Ur Specific [place] 1.020 (1.003-1.030) 11/30/16 Unknown Urine Protein 30 mg/dl mg/dL (Negative) 11/30/16 Unknown Urine Glucose (UA) Neg mg/dL (Negative) 11/30/16 Unknown Urine Ketones Neg mg/dL (Negative) 11/30/16 Unknown Urine Blood Sm (Negative) 11/30/16 Unknown Urine Nitrite Neg (Negative) 11/30/16 Unknown Urine Bilirubin Neg (Negative) 11/30/16 Unknown Urine Urobilinogen 2.0 mg/dL (<2.0) 11/30/16 Unknown Ur Leukocyte Esterase Sm (Negative) 11/30/16 Unknown Urine WBC (Auto) 19.0 /HPF (0.0-6.0) H 11/30/16 Unknown Urine RBC (Auto) 5.0 /HPF (0.0-6.0) 11/30/16 Unknown U Epithel Cells (Auto) < 1.0 /HPF (0-13.0) 11/30/16 Unknown Uric Acid Crystals 1+ 11/30/16 Unknown Urine Mucus 1+ /HPF 11/30/16 Unknown Heparin-induced Plt Ab Negative (Negative) 11/30/16 Unknown UF Heparin High Dose 0 % Release (()) 11/30/16 Unknown MIKA UFH Low Dose 0.1 1 % Release (()) 11/30/16 Unknown MIKA UFH Low Dose 0.5 0 % Release (()) 11/30/16 Unknown Blood Type O POSITIVE 11/27/16 02:58 Antibody Screen Negative 11/27/16 02:58
[2016-12-23] MEDS: NOVOLOG SUB-Q SCH ×4 (12:00→22:13)
[2016-12-23] MEDS: CARAFATE PO SCH ×4 (12:13→22:14)
[2016-12-23] MEDS: DOLOPHINE PO SCH (12:15)
[2016-12-23] MEDS: NYSTOP TP SCH ×2 (12:17→22:16)
[2016-12-23] MEDS: PEPCID PO SCH ×2 (12:19→22:15)
[2016-12-23] MEDS: ELIQUIS PO SCH ×2 (12:29→22:15)
--- NOTE | 2016-12-23 19:25 | Progress Note ---
Assessment and Plan - Patient Problems (1) Acute respiratory failure with hypoxia Current Visit: Yes Status: Resolved Plan to address problem: Continue supportive care, NIPPV as clinically indicated, (2) Morbid (severe) obesity due to excess calories Current Visit: Yes Status: Acute Plan to address problem: Pt counseled regarding balanced diet, increased physical activity, bariatric surgery (3) LIVAN on CPAP Current Visit: Yes Status: Acute Plan to address problem: Continue current care, (4) Pulmonary embolism Current Visit: Yes Status: Acute Qualifiers: Pulmonary embolism type: saddle Chronicity: acute Acute cor pulmonale presence: with acute cor pulmonale Qualified Code(s): I26.02 - Saddle embolus of pulmonary artery with acute cor pulmonale Plan to address problem: S/P EKOS therapy, and IVC filter placement, continue anticoagulation (5) Diabetes Current Visit: Yes Status: Chronic Plan to address problem: ADA diet, insulin, accu check (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 repeat lumbar spine MRI (7) Osteomyelitis Current Visit: Yes Status: Acute Plan to address problem: IV abx, IVF, supportive care, pain control, Pending transfer [facility]. (8) DVT prophylaxis Current Visit: Yes Status: Acute History Interval history: Pt lying in bed, Pt complains of back pain with ambulation. NO new reported nursing events. Pt denies any new am complaints.discussed care plan with patient and . Hospitalist Physical - Constitutional Vitals: Temp Pulse Resp BP Pulse Ox 98.3 F 79 18 120/72 98 12/23/16 17:07 12/23/16 17:07 12/23/16 17:07 12/23/16 17:07 12/23/16 17:07 General appearance: Present: no acute distress, obese - EENT Eyes: Present: PERRL, EOM intact ENT: hearing intact - Neck Neck: Present: supple - Respiratory Respiratory effort: normal Respiratory: bilateral: CTA - Cardiovascular Rhythm: regular Heart Sounds: Present: S1 & S2 - Extremities Extremity abnormal: edema Peripheral Pulses: within normal limits - Abdominal General gastrointestinal: soft, non-tender, non-distended, normal bowel sounds, no hepatomegaly, no splenomegaly - Integumentary Integumentary: Present: clear, dry - Psychiatric Psychiatric: appropriate mood/affect, cooperative - Neurologic Neurologic: CNII-XII intact Results - Labs CBC & Chem 7: 12/07/16 06:32 12/07/16 06:32 Labs: Laboratory Last Values WBC 5.3 K/mm3 (4.5-11.0) 12/07/16 06:32 RBC 3.97 M/mm3 (3.65-5.03) 12/07/16 06:32 Hgb 10.4 gm/dl (11.8-15.2) L 12/07/16 06:32 Hct 32.1 % (35.5-45.6) L 12/07/16 06:32 MCV 81 fl (84-94) L 12/07/16 06:32 MCH 26 pg (28-32) L 12/07/16 06:32 MCHC 33 % (32-34) 12/07/16 06:32 RDW 17.3 % (13.2-15.2) H 12/07/16 06:32 Plt Count 331 K/mm3 (140-440) 12/07/16 06:32 Lymph % (Auto) 32.8 % (13.4-35.0) 12/07/16 06:32 [place] % (Auto) 11.5 % (0.0-7.3) H 12/07/16 06:32 Eos % (Auto) 3.9 % (0.0-4.3) 12/07/16 06:32 Baso % (Auto) 0.9 % (0.0-1.8) 12/07/16 06:32 Lymph # 1.7 K/mm3 (1.2-5.4) 12/07/16 06:32 [place] # 0.6 K/mm3 (0.0-0.8) 12/07/16 06:32 Eos # 0.2 K/mm3 (0.0-0.4) 12/07/16 06:32 Baso # 0.0 K/mm3 (0.0-0.1) 12/07/16 06:32 Add Manual Diff Complete 11/27/16 17:00 Total Counted 100 11/27/16 17:00 Seg Neutrophils % 50.9 % (40.0-70.0) 12/07/16 06:32 Seg Neuts % (Manual) 80.0 % (40.0-70.0) H 11/27/16 17:00 Band Neutrophils % 0 % 11/27/16 17:00 Lymphocytes % (Manual) 9.0 % (13.4-35.0) L 11/27/16 17:00 Reactive Lymphs % (Man) 0 % 11/27/16 17:00 Monocytes % (Manual) 9.0 % (0.0-7.3) H 11/27/16 17:00 Eosinophils % (Manual) 0 % (0.0-4.3) 11/27/16 17:00 Basophils % (Manual) 0 % (0.0-1.8) 11/27/16 17:00 Metamyelocytes % 2.0 % 11/27/16 17:00 Myelocytes % 0 % 11/27/16 17:00 Promyelocytes % 0 % 11/27/16 17:00 Blast Cells % 0 % 11/27/16 17:00 Nucleated RBC % Not Reportable 11/27/16 17:00 Seg Neutrophils # 2.7 K/mm3 (1.8-7.7) 12/07/16 06:32 Seg Neutrophils # Man 7.7 K/mm3 (1.8-7.7) 11/27/16 17:00 Band Neutrophils # 0.0 K/mm3 11/27/16 17:00 Lymphocytes # (Manual) 0.9 K/mm3 (1.2-5.4) L 11/27/16 17:00 Abs React Lymphs (Man) 0.0 K/mm3 11/27/16 17:00 Monocytes # (Manual) 0.9 K/mm3 (0.0-0.8) H 11/27/16 17:00 Eosinophils # (Manual) 0.0 K/mm3 (0.0-0.4) 11/27/16 17:00 Basophils # (Manual) 0.0 K/mm3 (0.0-0.1) 11/27/16 17:00 Metamyelocytes # 0.2 K/mm3 11/27/16 17:00 Myelocytes # 0.0 K/mm3 11/27/16 17:00 Promyelocytes # 0.0 K/mm3 11/27/16 17:00 Blast Cells # 0.0 K/mm3 11/27/16 17:00 WBC Morphology Not Reportable 11/27/16 17:00 Hypersegmented Neuts Not Reportable 11/27/16 17:00 Hyposegmented Neuts Not Reportable 11/27/16 17:00 Hypogranular Neuts Not Reportable 11/27/16 17:00 Smudge Cells Not Reportable 11/27/16 17:00 Toxic Granulation Not Reportable 11/27/16 17:00 Toxic Vacuolation Not Reportable 11/27/16 17:00 Dohle Bodies Not Reportable 11/27/16 17:00 Pelger-Huet Anomaly Not Reportable 11/27/16 17:00 Mati Rods Not Reportable 11/27/16 17:00 Platelet Estimate Consistent w auto 11/27/16 17:00 Clumped Platelets Not Reportable 11/27/16 17:00 Plt Clumps, EDTA Not Reportable 11/27/16 17:00 Large Platelets Not Reportable 11/27/16 17:00 Giant Platelets Not Reportable 11/27/16 17:00 Platelet Satelliting Not Reportable 11/27/16 17:00 Plt Morphology Comment Not Reportable 11/27/16 17:00 RBC Morphology Not Reportable 11/27/16 17:00 Dimorphic RBCs Not Reportable 11/27/16 17:00 Polychromasia Not Reportable 11/27/16 17:00 Hypochromasia Not Reportable 11/27/16 17:00 Poikilocytosis Not Reportable 11/27/16 17:00 Anisocytosis 1+ 11/27/16 17:00 Microcytosis Not Reportable 11/27/16 17:00 Macrocytosis Not Reportable 11/27/16 17:00 Spherocytes Not Reportable 11/27/16 17:00 Pappenheimer Bodies Not Reportable 11/27/16 17:00 Sickle Cells Not Reportable 11/27/16 17:00 Target Cells Not Reportable 11/27/16 17:00 Tear Drop Cells Not Reportable 11/27/16 17:00 Ovalocytes Not Reportable 11/27/16 17:00 Helmet Cells Not Reportable 11/27/16 17:00 [place] Bodies Not Reportable 11/27/16 17:00 [place] Rings Not Reportable 11/27/16 17:00 William Cells Not Reportable 11/27/16 17:00 Bite Cells Not Reportable 11/27/16 17:00 Crenated Cell Not Reportable 11/27/16 17:00 Elliptocytes Not Reportable 11/27/16 17:00 Acanthocytes (Spur) Not Reportable 11/27/16 17:00 Rouleaux Not Reportable 11/27/16 17:00 Hemoglobin C Crystals Not Reportable 11/27/16 17:00 Schistocytes Not Reportable 11/27/16 17:00 Malaria parasites Not Reportable 11/27/16 17:00 Michael Bodies Not Reportable 11/27/16 17:00 Hem Pathologist Commnt No 11/27/16 17:00 PT 23.9 Sec. (12.2-14.9) H 11/30/16 17:15 INR 2.13 (0.87-1.13) H 11/30/16 17:15 APTT 62.0 Sec. (24.2-36.6) H* 12/04/16 Unknown Fibrinogen 474 mg/dl (211-480) 11/27/16 23:00 Heparin Anti-Xa Level 0.14 U.I./ml (0.3-0.7) L 11/30/16 Unknown Heparin Anti-Xa, Unfract Negative (Negative) 11/30/16 Unknown Sodium 141 mmol/L (137-145) 12/07/16 06:32 Potassium 4.1 mmol/L (3.6-5.0) D 12/07/16 06:32 Chloride 100.6 mmol/L (98-107) 12/07/16 06:32 Carbon Dioxide 26 mmol/L (22-30) 12/07/16 06:32 Anion Gap 19 mmol/L 12/07/16 06:32 BUN 4 mg/dL (9-20) L 12/07/16 06:32 Creatinine 0.2 mg/dL (0.8-1.5) L 12/07/16 06:32 Estimated GFR > 60 ml/min 12/07/16 06:32 BUN/Creatinine Ratio 20.00 % 12/07/16 06:32 Glucose 90 mg/dL (75-100) 12/07/16 06:32 POC Glucose 127 (70-105) H 12/22/16 21:30 Calcium 8.7 mg/dL (8.4-10.2) 12/07/16 06:32 Total Bilirubin 0.3 mg/dL (0.1-1.2) 12/07/16 06:32 Direct Bilirubin 0.2 mg/dL (0-0.2) 11/30/16 04:18 Indirect Bilirubin 0.5 mg/dL 11/30/16 04:18 AST 12 units/L (5-40) 12/07/16 06:32 ALT 21 units/L (7-56) 12/07/16 06:32 Alkaline Phosphatase 83 units/L (35-129) 12/07/16 06:32 Total Protein 6.2 g/dL (6.3-8.2) L 12/07/16 06:32 Albumin 2.9 g/dL (3.9-5) L 12/07/16 06:32 Albumin/Globulin Ratio 0.9 % 12/07/16 06:32 Serotonin Release Assay See scanned report 11/30/16 Unknown Urine Color Yellow (Yellow) 11/30/16 Unknown Urine Turbidity Slightly-cloudy (Clear) 11/30/16 Unknown Urine pH 5.0 (5.0-7.0) 11/30/16 Unknown Ur Specific [place] 1.020 (1.003-1.030) 11/30/16 Unknown Urine Protein 30 mg/dl mg/dL (Negative) 11/30/16 Unknown Urine Glucose (UA) Neg mg/dL (Negative) 11/30/16 Unknown Urine Ketones Neg mg/dL (Negative) 11/30/16 Unknown Urine Blood Sm (Negative) 11/30/16 Unknown Urine Nitrite Neg (Negative) 11/30/16 Unknown Urine Bilirubin Neg (Negative) 11/30/16 Unknown Urine Urobilinogen 2.0 mg/dL (<2.0) 11/30/16 Unknown Ur Leukocyte Esterase Sm (Negative) 11/30/16 Unknown Urine WBC (Auto) 19.0 /HPF (0.0-6.0) H 11/30/16 Unknown Urine RBC (Auto) 5.0 /HPF (0.0-6.0) 11/30/16 Unknown U Epithel Cells (Auto) < 1.0 /HPF (0-13.0) 11/30/16 Unknown Uric Acid Crystals 1+ 11/30/16 Unknown Urine Mucus 1+ /HPF 11/30/16 Unknown Heparin-induced Plt Ab Negative (Negative) 11/30/16 Unknown UF Heparin High Dose 0 % Release (()) 11/30/16 Unknown MIKA UFH Low Dose 0.1 1 % Release (()) 11/30/16 Unknown MIKA UFH Low Dose 0.5 0 % Release (()) 11/30/16 Unknown Blood Type O POSITIVE 11/27/16 02:58 Antibody Screen Negative 11/27/16 02:58
[2016-12-23] MEDS: XANAX PO PRN (20:47)
[2016-12-23] MEDS: PROTONIX PO SCH (22:14)
[2016-12-24] MEDS: CARAFATE PO SCH ×4 (10:44→21:21)
[2016-12-24] MEDS: ELIQUIS PO SCH ×2 (10:44→21:21)
[2016-12-24] MEDS: NYSTOP TP SCH ×2 (10:44→21:21)
[2016-12-24] MEDS: DOLOPHINE PO SCH (10:45)
[2016-12-24] MEDS: XANAX PO PRN ×2 (10:46→19:00)
[2016-12-24] MEDS: PEPCID PO SCH ×2 (10:47→21:21)
[2016-12-24] MEDS: PROTONIX PO SCH ×2 (10:47→21:21)
[2016-12-24] MEDS: NOVOLOG SUB-Q SCH ×3 (10:49→18:11)
[2016-12-24] MEDS: ROXICODONE PO PRN ×2 (14:39→19:00)
[2016-12-25] MEDS: NOVOLOG SUB-Q SCH ×5 (00:10→22:00)
[2016-12-25] MEDS: ROXICODONE PO PRN ×4 (02:11→18:46)
[2016-12-25] MEDS: XANAX PO PRN ×2 (02:11→10:50)
--- NOTE | 2016-12-25 06:00 | Progress Note ---
Assessment and Plan - Patient Problems (1) Acute respiratory failure with hypoxia Current Visit: Yes Status: Resolved (2) Morbid (severe) obesity due to excess calories Current Visit: Yes Status: Acute Plan to address problem: Pt counseled regarding balanced diet, increased physical activity, bariatric surgery (3) LIVAN on CPAP Current Visit: Yes Status: Acute Plan to address problem: Continue current care, (4) Pulmonary embolism Current Visit: Yes Status: Acute Qualifiers: Pulmonary embolism type: saddle Chronicity: acute Acute cor pulmonale presence: with acute cor pulmonale Qualified Code(s): I26.02 - Saddle embolus of pulmonary artery with acute cor pulmonale Plan to address problem: S/P EKOS therapy, and IVC filter placement, continue anticoagulation (5) Diabetes Current Visit: Yes Status: Chronic Plan to address problem: ADA diet, insulin, accu check (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 ID consulted, (7) Osteomyelitis Current Visit: Yes Status: Chronic Plan to address problem: Completed full course abx, (8) DVT prophylaxis Current Visit: Yes Status: Acute History Interval history: Pt lying in bed, Pt complains of back pain with ambulation. NO new reported nursing events. Pt denies any new am complaints. Pt denies fever, chills, CP, Palpitaitons, hemoptysis, discussed care plan with patient and . Hospitalist Physical - Constitutional Vitals: Temp Pulse Resp BP Pulse Ox 98.9 F 94 H 18 121/68 98 12/25/16 00:40 12/25/16 00:40 12/25/16 00:40 12/25/16 00:40 12/25/16 00:40 General appearance: Present: no acute distress, obese - EENT Eyes: Present: PERRL, EOM intact ENT: hearing intact - Neck Neck: Present: supple - Respiratory Respiratory: bilateral: CTA - Cardiovascular Rhythm: regular Heart Sounds: Present: S1 & S2 - Extremities Extremities: no ischemia Extremity abnormal: edema Peripheral Pulses: within normal limits - Abdominal General gastrointestinal: soft, non-tender, non-distended, no hepatomegaly, no splenomegaly - Integumentary Integumentary: Present: clear, warm, dry - Psychiatric Psychiatric: appropriate mood/affect, cooperative - Neurologic Neurologic: CNII-XII intact Results - Labs CBC & Chem 7: 12/07/16 06:32 12/07/16 06:32 Labs: Laboratory Last Values WBC 5.3 K/mm3 (4.5-11.0) 12/07/16 06:32 RBC 3.97 M/mm3 (3.65-5.03) 12/07/16 06:32 Hgb 10.4 gm/dl (11.8-15.2) L 12/07/16 06:32 Hct 32.1 % (35.5-45.6) L 12/07/16 06:32 MCV 81 fl (84-94) L 12/07/16 06:32 MCH 26 pg (28-32) L 12/07/16 06:32 MCHC 33 % (32-34) 12/07/16 06:32 RDW 17.3 % (13.2-15.2) H 12/07/16 06:32 Plt Count 331 K/mm3 (140-440) 12/07/16 06:32 Lymph % (Auto) 32.8 % (13.4-35.0) 12/07/16 06:32 [place] % (Auto) 11.5 % (0.0-7.3) H 12/07/16 06:32 Eos % (Auto) 3.9 % (0.0-4.3) 12/07/16 06:32 Baso % (Auto) 0.9 % (0.0-1.8) 12/07/16 06:32 Lymph # 1.7 K/mm3 (1.2-5.4) 12/07/16 06:32 [place] # 0.6 K/mm3 (0.0-0.8) 12/07/16 06:32 Eos # 0.2 K/mm3 (0.0-0.4) 12/07/16 06:32 Baso # 0.0 K/mm3 (0.0-0.1) 12/07/16 06:32 Add Manual Diff Complete 11/27/16 17:00 Total Counted 100 11/27/16 17:00 Seg Neutrophils % 50.9 % (40.0-70.0) 12/07/16 06:32 Seg Neuts % (Manual) 80.0 % (40.0-70.0) H 11/27/16 17:00 Band Neutrophils % 0 % 11/27/16 17:00 Lymphocytes % (Manual) 9.0 % (13.4-35.0) L 11/27/16 17:00 Reactive Lymphs % (Man) 0 % 11/27/16 17:00 Monocytes % (Manual) 9.0 % (0.0-7.3) H 11/27/16 17:00 Eosinophils % (Manual) 0 % (0.0-4.3) 11/27/16 17:00 Basophils % (Manual) 0 % (0.0-1.8) 11/27/16 17:00 Metamyelocytes % 2.0 % 11/27/16 17:00 Myelocytes % 0 % 11/27/16 17:00 Promyelocytes % 0 % 11/27/16 17:00 Blast Cells % 0 % 11/27/16 17:00 Nucleated RBC % Not Reportable 11/27/16 17:00 Seg Neutrophils # 2.7 K/mm3 (1.8-7.7) 12/07/16 06:32 Seg Neutrophils # Man 7.7 K/mm3 (1.8-7.7) 11/27/16 17:00 Band Neutrophils # 0.0 K/mm3 11/27/16 17:00 Lymphocytes # (Manual) 0.9 K/mm3 (1.2-5.4) L 11/27/16 17:00 Abs React Lymphs (Man) 0.0 K/mm3 11/27/16 17:00 Monocytes # (Manual) 0.9 K/mm3 (0.0-0.8) H 11/27/16 17:00 Eosinophils # (Manual) 0.0 K/mm3 (0.0-0.4) 11/27/16 17:00 Basophils # (Manual) 0.0 K/mm3 (0.0-0.1) 11/27/16 17:00 Metamyelocytes # 0.2 K/mm3 11/27/16 17:00 Myelocytes # 0.0 K/mm3 11/27/16 17:00 Promyelocytes # 0.0 K/mm3 11/27/16 17:00 Blast Cells # 0.0 K/mm3 11/27/16 17:00 WBC Morphology Not Reportable 11/27/16 17:00 Hypersegmented Neuts Not Reportable 11/27/16 17:00 Hyposegmented Neuts Not Reportable 11/27/16 17:00 Hypogranular Neuts Not Reportable 11/27/16 17:00 Smudge Cells Not Reportable 11/27/16 17:00 Toxic Granulation Not Reportable 11/27/16 17:00 Toxic Vacuolation Not Reportable 11/27/16 17:00 Dohle Bodies Not Reportable 11/27/16 17:00 Pelger-Huet Anomaly Not Reportable 11/27/16 17:00 Mati Rods Not Reportable 11/27/16 17:00 Platelet Estimate Consistent w auto 11/27/16 17:00 Clumped Platelets Not Reportable 11/27/16 17:00 Plt Clumps, EDTA Not Reportable 11/27/16 17:00 Large Platelets Not Reportable 11/27/16 17:00 Giant Platelets Not Reportable 11/27/16 17:00 Platelet Satelliting Not Reportable 11/27/16 17:00 Plt Morphology Comment Not Reportable 11/27/16 17:00 RBC Morphology Not Reportable 11/27/16 17:00 Dimorphic RBCs Not Reportable 11/27/16 17:00 Polychromasia Not Reportable 11/27/16 17:00 Hypochromasia Not Reportable 11/27/16 17:00 Poikilocytosis Not Reportable 11/27/16 17:00 Anisocytosis 1+ 11/27/16 17:00 Microcytosis Not Reportable 11/27/16 17:00 Macrocytosis Not Reportable 11/27/16 17:00 Spherocytes Not Reportable 11/27/16 17:00 Pappenheimer Bodies Not Reportable 11/27/16 17:00 Sickle Cells Not Reportable 11/27/16 17:00 Target Cells Not Reportable 11/27/16 17:00 Tear Drop Cells Not Reportable 11/27/16 17:00 Ovalocytes Not Reportable 11/27/16 17:00 Helmet Cells Not Reportable 11/27/16 17:00 Serrato-[place] Bodies Not Reportable 11/27/16 17:00 [place] Rings Not Reportable 11/27/16 17:00 William Cells Not Reportable 11/27/16 17:00 Bite Cells Not Reportable 11/27/16 17:00 Crenated Cell Not Reportable 11/27/16 17:00 Elliptocytes Not Reportable 11/27/16 17:00 Acanthocytes (Spur) Not Reportable 11/27/16 17:00 Rouleaux Not Reportable 11/27/16 17:00 Hemoglobin C Crystals Not Reportable 11/27/16 17:00 Schistocytes Not Reportable 11/27/16 17:00 Malaria parasites Not Reportable 11/27/16 17:00 Michael Bodies Not Reportable 11/27/16 17:00 Hem Pathologist Commnt No 11/27/16 17:00 PT 23.9 Sec. (12.2-14.9) H 11/30/16 17:15 INR 2.13 (0.87-1.13) H 11/30/16 17:15 APTT 62.0 Sec. (24.2-36.6) H* 12/04/16 Unknown Fibrinogen 474 mg/dl (211-480) 11/27/16 23:00 Heparin Anti-Xa Level 0.14 U.I./ml (0.3-0.7) L 11/30/16 Unknown Heparin Anti-Xa, Unfract Negative (Negative) 11/30/16 Unknown Sodium 141 mmol/L (137-145) 12/07/16 06:32 Potassium 4.1 mmol/L (3.6-5.0) D 12/07/16 06:32 Chloride 100.6 mmol/L (98-107) 12/07/16 06:32 Carbon Dioxide 26 mmol/L (22-30) 12/07/16 06:32 Anion Gap 19 mmol/L 12/07/16 06:32 BUN 4 mg/dL (9-20) L 12/07/16 06:32 Creatinine 0.2 mg/dL (0.8-1.5) L 12/07/16 06:32 Estimated GFR > 60 ml/min 12/07/16 06:32 BUN/Creatinine Ratio 20.00 % 12/07/16 06:32 Glucose 90 mg/dL (75-100) 12/07/16 06:32 POC Glucose 108 (70-105) H 12/24/16 21:57 Calcium 8.7 mg/dL (8.4-10.2) 12/07/16 06:32 Total Bilirubin 0.3 mg/dL (0.1-1.2) 12/07/16 06:32 Direct Bilirubin 0.2 mg/dL (0-0.2) 11/30/16 04:18 Indirect Bilirubin 0.5 mg/dL 11/30/16 04:18 AST 12 units/L (5-40) 12/07/16 06:32 ALT 21 units/L (7-56) 12/07/16 06:32 Alkaline Phosphatase 83 units/L (35-129) 12/07/16 06:32 Total Protein 6.2 g/dL (6.3-8.2) L 12/07/16 06:32 Albumin 2.9 g/dL (3.9-5) L 12/07/16 06:32 Albumin/Globulin Ratio 0.9 % 12/07/16 06:32 Serotonin Release Assay See scanned report 11/30/16 Unknown Urine Color Yellow (Yellow) 11/30/16 Unknown Urine Turbidity Slightly-cloudy (Clear) 11/30/16 Unknown Urine pH 5.0 (5.0-7.0) 11/30/16 Unknown Ur Specific [place] 1.020 (1.003-1.030) 11/30/16 Unknown Urine Protein 30 mg/dl mg/dL (Negative) 11/30/16 Unknown Urine Glucose (UA) Neg mg/dL (Negative) 11/30/16 Unknown Urine Ketones Neg mg/dL (Negative) 11/30/16 Unknown Urine Blood Sm (Negative) 11/30/16 Unknown Urine Nitrite Neg (Negative) 11/30/16 Unknown Urine Bilirubin Neg (Negative) 11/30/16 Unknown Urine Urobilinogen 2.0 mg/dL (<2.0) 11/30/16 Unknown Ur Leukocyte Esterase Sm (Negative) 11/30/16 Unknown Urine WBC (Auto) 19.0 /HPF (0.0-6.0) H 11/30/16 Unknown Urine RBC (Auto) 5.0 /HPF (0.0-6.0) 11/30/16 Unknown U Epithel Cells (Auto) < 1.0 /HPF (0-13.0) 11/30/16 Unknown Uric Acid Crystals 1+ 11/30/16 Unknown Urine Mucus 1+ /HPF 11/30/16 Unknown Heparin-induced Plt Ab Negative (Negative) 11/30/16 Unknown UF Heparin High Dose 0 % Release (()) 11/30/16 Unknown MIKA UFH Low Dose 0.1 1 % Release (()) 11/30/16 Unknown MIKA UFH Low Dose 0.5 0 % Release (()) 11/30/16 Unknown Blood Type O POSITIVE 11/27/16 02:58 Antibody Screen Negative 11/27/16 02:58
[2016-12-25] MEDS: PROTONIX PO SCH ×2 (10:41→21:33)
[2016-12-25] MEDS: PEPCID PO SCH ×2 (10:41→21:33)
[2016-12-25] MEDS: DOLOPHINE PO SCH (10:41)
[2016-12-25] MEDS: CARAFATE PO SCH ×4 (10:41→21:32)
[2016-12-25] MEDS: ELIQUIS PO SCH ×2 (10:42→21:33)
[2016-12-25] MEDS: NYSTOP TP SCH ×2 (10:42→21:35)
--- NOTE | 2016-12-25 12:58 | Event Note ---
Date: 12/25/16 Asked to see Mr. Chaparro again by Dr. Lino for "psoas abscess." He is well known to us as we were following him when he was on the [facility]. He has completed therapy for the psoas abscess and repeat imaging has shown no worsening. His chart is reviewed in detail and vents leading to his previous transfer to [facility] for PEs as well as his readmission are noted. However I cannot find any evidence to suggest recurrent infection: no fever, leukocytosis, clinical change , etc. Therefore will not complete a full consult at this time but will be happy to see if there are questions about infection. Thanks. Cale Lucas MD [facility] Office: [phone]
--- NOTE | 2016-12-25 16:17 | Progress Note ---
Assessment and Plan Assessment and plan: (1) Acute respiratory failure with hypoxia Current Visit: Yes Status: Resolved (2) Morbid (severe) obesity due to excess calories Current Visit: Yes Status: Acute Plan to address problem: Pt counseled regarding balanced diet, increased physical activity, bariatric surgery (3) LIVAN on CPAP Current Visit: Yes Status: Acute Plan to address problem: Continue current care, (4) Pulmonary embolism Current Visit: Yes Status: Acute Qualifiers: Pulmonary embolism type: saddle Chronicity: acute Acute cor pulmonale presence: with acute cor pulmonale Qualified Code(s): I26.02 - Saddle embolus of pulmonary artery with acute cor pulmonale Plan to address problem: S/P EKOS therapy, and IVC filter placement, continue anticoagulation (5) Diabetes Current Visit: Yes Status: Chronic Plan to address problem: ADA diet, insulin, accu check (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 ID consult appreciated. No more recommendation at this time. (7) Osteomyelitis Current Visit: Yes Status: Chronic Plan to address problem: Completed full course abx, still complaining of back pain. Refused to do his exercise. (8) DVT prophylaxis Current Visit: Yes Status: Acute History Interval history: patient is complaining back pain, and refused to do Physical therapy. patient was asking to be transferred to [facility] but refused to be accepted Hospitalist Physical - Physical exam Narrative exam: Not in cardiopulmonary distress. The patient is morbidly obese. Vital signs as documented. Head exam is unremarkable. No scleral icterus . Neck is without jugular venous distension, thyromegaly, or carotid bruits. Lungs are clear to auscultation. Cardiac exam reveals regular rate and Rhythm. First and second heart sounds normal. No murmurs, rubs or gallops. Abdominal exam reveals obese abdomen. Extremities are nonedematous and both femoral and pedal pulses are normal. 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 No focal weakness. - Constitutional Vitals: Temp Pulse Resp BP Pulse Ox 98.5 F 100 H 18 121/78 95 12/25/16 12:00 12/25/16 12:00 12/25/16 12:00 12/25/16 12:00 12/25/16 12:00 General appearance: Present: no acute distress, obese Results - Labs CBC & Chem 7: 12/07/16 06:32 12/07/16 06:32 Labs: Laboratory Last Values WBC 5.3 K/mm3 (4.5-11.0) 12/07/16 06:32 RBC 3.97 M/mm3 (3.65-5.03) 12/07/16 06:32 Hgb 10.4 gm/dl (11.8-15.2) L 12/07/16 06:32 Hct 32.1 % (35.5-45.6) L 12/07/16 06:32 MCV 81 fl (84-94) L 12/07/16 06:32 MCH 26 pg (28-32) L 12/07/16 06:32 MCHC 33 % (32-34) 12/07/16 06:32 RDW 17.3 % (13.2-15.2) H 12/07/16 06:32 Plt Count 331 K/mm3 (140-440) 12/07/16 06:32 Lymph % (Auto) 32.8 % (13.4-35.0) 12/07/16 06:32 [place] % (Auto) 11.5 % (0.0-7.3) H 12/07/16 06:32 Eos % (Auto) 3.9 % (0.0-4.3) 12/07/16 06:32 Baso % (Auto) 0.9 % (0.0-1.8) 12/07/16 06:32 Lymph # 1.7 K/mm3 (1.2-5.4) 12/07/16 06:32 [place] # 0.6 K/mm3 (0.0-0.8) 12/07/16 06:32 Eos # 0.2 K/mm3 (0.0-0.4) 12/07/16 06:32 Baso # 0.0 K/mm3 (0.0-0.1) 12/07/16 06:32 Add Manual Diff Complete 11/27/16 17:00 Total Counted 100 11/27/16 17:00 Seg Neutrophils % 50.9 % (40.0-70.0) 12/07/16 06:32 Seg Neuts % (Manual) 80.0 % (40.0-70.0) H 11/27/16 17:00 Band Neutrophils % 0 % 11/27/16 17:00 Lymphocytes % (Manual) 9.0 % (13.4-35.0) L 11/27/16 17:00 Reactive Lymphs % (Man) 0 % 11/27/16 17:00 Monocytes % (Manual) 9.0 % (0.0-7.3) H 11/27/16 17:00 Eosinophils % (Manual) 0 % (0.0-4.3) 11/27/16 17:00 Basophils % (Manual) 0 % (0.0-1.8) 11/27/16 17:00 Metamyelocytes % 2.0 % 11/27/16 17:00 Myelocytes % 0 % 11/27/16 17:00 Promyelocytes % 0 % 11/27/16 17:00 Blast Cells % 0 % 11/27/16 17:00 Nucleated RBC % Not Reportable 11/27/16 17:00 Seg Neutrophils # 2.7 K/mm3 (1.8-7.7) 12/07/16 06:32 Seg Neutrophils # Man 7.7 K/mm3 (1.8-7.7) 11/27/16 17:00 Band Neutrophils # 0.0 K/mm3 11/27/16 17:00 Lymphocytes # (Manual) 0.9 K/mm3 (1.2-5.4) L 11/27/16 17:00 Abs React Lymphs (Man) 0.0 K/mm3 11/27/16 17:00 Monocytes # (Manual) 0.9 K/mm3 (0.0-0.8) H 11/27/16 17:00 Eosinophils # (Manual) 0.0 K/mm3 (0.0-0.4) 11/27/16 17:00 Basophils # (Manual) 0.0 K/mm3 (0.0-0.1) 11/27/16 17:00 Metamyelocytes # 0.2 K/mm3 11/27/16 17:00 Myelocytes # 0.0 K/mm3 11/27/16 17:00 Promyelocytes # 0.0 K/mm3 11/27/16 17:00 Blast Cells # 0.0 K/mm3 11/27/16 17:00 WBC Morphology Not Reportable 11/27/16 17:00 Hypersegmented Neuts Not Reportable 11/27/16 17:00 Hyposegmented Neuts Not Reportable 11/27/16 17:00 Hypogranular Neuts Not Reportable 11/27/16 17:00 Smudge Cells Not Reportable 11/27/16 17:00 Toxic Granulation Not Reportable 11/27/16 17:00 Toxic Vacuolation Not Reportable 11/27/16 17:00 Dohle Bodies Not Reportable 11/27/16 17:00 Pelger-Huet Anomaly Not Reportable 11/27/16 17:00 Mati Rods Not Reportable 11/27/16 17:00 Platelet Estimate Consistent w auto 11/27/16 17:00 Clumped Platelets Not Reportable 11/27/16 17:00 Plt Clumps, EDTA Not Reportable 11/27/16 17:00 Large Platelets Not Reportable 11/27/16 17:00 Giant Platelets Not Reportable 11/27/16 17:00 Platelet Satelliting Not Reportable 11/27/16 17:00 Plt Morphology Comment Not Reportable 11/27/16 17:00 RBC Morphology Not Reportable 11/27/16 17:00 Dimorphic RBCs Not Reportable 11/27/16 17:00 Polychromasia Not Reportable 11/27/16 17:00 Hypochromasia Not Reportable 11/27/16 17:00 Poikilocytosis Not Reportable 11/27/16 17:00 Anisocytosis 1+ 11/27/16 17:00 Microcytosis Not Reportable 11/27/16 17:00 Macrocytosis Not Reportable 11/27/16 17:00 Spherocytes Not Reportable 11/27/16 17:00 Pappenheimer Bodies Not Reportable 11/27/16 17:00 Sickle Cells Not Reportable 11/27/16 17:00 Target Cells Not Reportable 11/27/16 17:00 Tear Drop Cells Not Reportable 11/27/16 17:00 Ovalocytes Not Reportable 11/27/16 17:00 Helmet Cells Not Reportable 11/27/16 17:00 Serrato-[place] Bodies Not Reportable 11/27/16 17:00 [place] Rings Not Reportable 11/27/16 17:00 William Cells Not Reportable 11/27/16 17:00 Bite Cells Not Reportable 11/27/16 17:00 Crenated Cell Not Reportable 11/27/16 17:00 Elliptocytes Not Reportable 11/27/16 17:00 Acanthocytes (Spur) Not Reportable 11/27/16 17:00 Rouleaux Not Reportable 11/27/16 17:00 Hemoglobin C Crystals Not Reportable 11/27/16 17:00 Schistocytes Not Reportable 11/27/16 17:00 Malaria parasites Not Reportable 11/27/16 17:00 Michael Bodies Not Reportable 11/27/16 17:00 Hem Pathologist Commnt No 11/27/16 17:00 PT 23.9 Sec. (12.2-14.9) H 11/30/16 17:15 INR 2.13 (0.87-1.13) H 11/30/16 17:15 APTT 62.0 Sec. (24.2-36.6) H* 12/04/16 Unknown Fibrinogen 474 mg/dl (211-480) 11/27/16 23:00 Heparin Anti-Xa Level 0.14 U.I./ml (0.3-0.7) L 11/30/16 Unknown Heparin Anti-Xa, Unfract Negative (Negative) 11/30/16 Unknown Sodium 141 mmol/L (137-145) 12/07/16 06:32 Potassium 4.1 mmol/L (3.6-5.0) D 12/07/16 06:32 Chloride 100.6 mmol/L (98-107) 12/07/16 06:32 Carbon Dioxide 26 mmol/L (22-30) 12/07/16 06:32 Anion Gap 19 mmol/L 12/07/16 06:32 BUN 4 mg/dL (9-20) L 12/07/16 06:32 Creatinine 0.2 mg/dL (0.8-1.5) L 12/07/16 06:32 Estimated GFR > 60 ml/min 12/07/16 06:32 BUN/Creatinine Ratio 20.00 % 12/07/16 06:32 Glucose 90 mg/dL (75-100) 12/07/16 06:32 POC Glucose 108 (70-105) H 12/24/16 21:57 Calcium 8.7 mg/dL (8.4-10.2) 12/07/16 06:32 Total Bilirubin 0.3 mg/dL (0.1-1.2) 12/07/16 06:32 Direct Bilirubin 0.2 mg/dL (0-0.2) 11/30/16 04:18 Indirect Bilirubin 0.5 mg/dL 11/30/16 04:18 AST 12 units/L (5-40) 12/07/16 06:32 ALT 21 units/L (7-56) 12/07/16 06:32 Alkaline Phosphatase 83 units/L (35-129) 12/07/16 06:32 Total Protein 6.2 g/dL (6.3-8.2) L 12/07/16 06:32 Albumin 2.9 g/dL (3.9-5) L 12/07/16 06:32 Albumin/Globulin Ratio 0.9 % 12/07/16 06:32 Serotonin Release Assay See scanned report 11/30/16 Unknown Urine Color Yellow (Yellow) 11/30/16 Unknown Urine Turbidity Slightly-cloudy (Clear) 11/30/16 Unknown Urine pH 5.0 (5.0-7.0) 11/30/16 Unknown Ur Specific [place] 1.020 (1.003-1.030) 11/30/16 Unknown Urine Protein 30 mg/dl mg/dL (Negative) 11/30/16 Unknown Urine Glucose (UA) Neg mg/dL (Negative) 11/30/16 Unknown Urine Ketones Neg mg/dL (Negative) 11/30/16 Unknown Urine Blood Sm (Negative) 11/30/16 Unknown Urine Nitrite Neg (Negative) 11/30/16 Unknown Urine Bilirubin Neg (Negative) 11/30/16 Unknown Urine Urobilinogen 2.0 mg/dL (<2.0) 11/30/16 Unknown Ur Leukocyte Esterase Sm (Negative) 11/30/16 Unknown Urine WBC (Auto) 19.0 /HPF (0.0-6.0) H 11/30/16 Unknown Urine RBC (Auto) 5.0 /HPF (0.0-6.0) 11/30/16 Unknown U Epithel Cells (Auto) < 1.0 /HPF (0-13.0) 11/30/16 Unknown Uric Acid Crystals 1+ 11/30/16 Unknown Urine Mucus 1+ /HPF 11/30/16 Unknown Heparin-induced Plt Ab Negative (Negative) 11/30/16 Unknown UF Heparin High Dose 0 % Release (()) 11/30/16 Unknown MIKA UFH Low Dose 0.1 1 % Release (()) 11/30/16 Unknown MIKA UFH Low Dose 0.5 0 % Release (()) 11/30/16 Unknown Blood Type O POSITIVE 11/27/16 02:58 Antibody Screen Negative 11/27/16 02:58
[2016-12-26] MEDS: ROXICODONE PO PRN ×3 (00:03→17:33)
[2016-12-26 05:50] LABS: Basophils % (Auto) 0.9 % (0.0-1.8); Eosinophils % (Auto) 6.9 % (0.0-4.3); Hematocrit 33.4 % (35.5-45.6); Hemoglobin 10.7 gm/dl (11.8-15.2); Mean Corpuscular HGB Conc 32 % (32-34); Mean Corpuscular Volume 81 fl (84-94); Platelet Count 278 K/mm3 (140-440); Red Blood Count 4.14 M/mm3 (3.65-5.03); Red Cell Distribution Width 16.6 % (13.2-15.2); White Blood Count 5.9 K/mm3 (4.5-11.0)
[2016-12-26 05:56] LABS: Anion Gap 19 mmol/L; Blood Urea Nitrogen 11 mg/dL (9-20); Calcium 9.5 mg/dL (8.4-10.2); Carbon Dioxide 23 mmol/L (22-30); Glucose 124 mg/dL (75-100); Mean Corpuscular Hemoglobin 26 pg (28-32); Potassium 3.8 mmol/L (3.6-5.0); Sodium 142 mmol/L (137-145)
[2016-12-26] MEDS: XANAX PO PRN ×2 (06:35→21:30)
[2016-12-26] MEDS: CARAFATE PO SCH ×4 (08:13→21:30)
[2016-12-26] MEDS: NOVOLOG SUB-Q SCH ×3 (10:34→22:10)
[2016-12-26] MEDS: DOLOPHINE PO SCH (10:35)
[2016-12-26] MEDS: PEPCID PO SCH ×2 (10:35→21:30)
[2016-12-26] MEDS: ELIQUIS PO SCH ×2 (10:35→21:30)
[2016-12-26] MEDS: PROTONIX PO SCH ×2 (10:39→21:30)
[2016-12-26] MEDS: NYSTOP TP SCH ×2 (10:40→21:32)
[2016-12-26] MEDS: DILAUDID PO PRN ×2 (13:02→21:30)
--- NOTE | 2016-12-26 16:14 | Progress Note ---
Assessment and Plan Assessment and plan: (1) Acute respiratory failure with hypoxia Current Visit: Yes Status: Resolved (2) Morbid (severe) obesity due to excess calories Current Visit: Yes Status: Acute Plan to address problem: Pt counseled regarding balanced diet, increased physical activity, bariatric surgery (3) LIVAN on CPAP Current Visit: Yes Status: Acute Plan to address problem: Continue current care, (4) Pulmonary embolism Current Visit: Yes Status: Acute Qualifiers: Pulmonary embolism type: saddle Chronicity: acute Acute cor pulmonale presence: with acute cor pulmonale Qualified Code(s): I26.02 - Saddle embolus of pulmonary artery with acute cor pulmonale Plan to address problem: S/P EKOS therapy, and IVC filter placement, continue anticoagulation (5) Diabetes Current Visit: Yes Status: Chronic Plan to address problem: ADA diet, insulin, accu check (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 ID consult appreciated. No more recommendation at this time. (7) Osteomyelitis Current Visit: Yes Status: Chronic Plan to address problem: Completed full course abx, still complaining of back pain. i put a consult for Dr meza neurosurgeon. (8) DVT prophylaxis Current Visit: Yes Status: Acute History Interval history: patient is complaining severe back pain, had physical therapy today. We had a meeting with the family today. Hospitalist Physical - Physical exam Narrative exam: Not in cardiopulmonary distress. The patient is morbidly obese. Vital signs as documented. Head exam is unremarkable. No scleral icterus . Neck is without jugular venous distension, thyromegaly, or carotid bruits. Lungs are clear to auscultation. Cardiac exam reveals regular rate and Rhythm. First and second heart sounds normal. No murmurs, rubs or gallops. Abdominal exam reveals obese abdomen. Extremities are nonedematous and both femoral and pedal pulses are normal. Back tenderness. 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 No focal weakness. - Constitutional Vitals: Temp Pulse Resp BP Pulse Ox 98.0 F 75 20 242/76 97 12/26/16 16:00 12/26/16 16:00 12/26/16 16:00 12/26/16 16:00 12/26/16 16:00 General appearance: Present: no acute distress, obese Results - Labs CBC & Chem 7: 12/26/16 05:21 12/26/16 05:21 Labs: Laboratory Last Values WBC 5.9 K/mm3 (4.5-11.0) 12/26/16 05:21 RBC 4.14 M/mm3 (3.65-5.03) 12/26/16 05:21 Hgb 10.7 gm/dl (11.8-15.2) L 12/26/16 05:21 Hct 33.4 % (35.5-45.6) L 12/26/16 05:21 MCV 81 fl (84-94) L 12/26/16 05:21 MCH 26 pg (28-32) L 12/26/16 05:21 MCHC 32 % (32-34) 12/26/16 05:21 RDW 16.6 % (13.2-15.2) H 12/26/16 05:21 Plt Count 278 K/mm3 (140-440) 12/26/16 05:21 Lymph % (Auto) 33.0 % (13.4-35.0) 12/26/16 05:21 [place] % (Auto) 13.5 % (0.0-7.3) H 12/26/16 05:21 Eos % (Auto) 6.9 % (0.0-4.3) H 12/26/16 05:21 Baso % (Auto) 0.9 % (0.0-1.8) 12/26/16 05:21 Lymph # 1.9 K/mm3 (1.2-5.4) 12/26/16 05:21 [place] # 0.8 K/mm3 (0.0-0.8) 12/26/16 05:21 Eos # 0.4 K/mm3 (0.0-0.4) 12/26/16 05:21 Baso # 0.1 K/mm3 (0.0-0.1) 12/26/16 05:21 Add Manual Diff Complete 11/27/16 17:00 Total Counted 100 11/27/16 17:00 Seg Neutrophils % 45.7 % (40.0-70.0) 12/26/16 05:21 Seg Neuts % (Manual) 80.0 % (40.0-70.0) H 11/27/16 17:00 Band Neutrophils % 0 % 11/27/16 17:00 Lymphocytes % (Manual) 9.0 % (13.4-35.0) L 11/27/16 17:00 Reactive Lymphs % (Man) 0 % 11/27/16 17:00 Monocytes % (Manual) 9.0 % (0.0-7.3) H 11/27/16 17:00 Eosinophils % (Manual) 0 % (0.0-4.3) 11/27/16 17:00 Basophils % (Manual) 0 % (0.0-1.8) 11/27/16 17:00 Metamyelocytes % 2.0 % 11/27/16 17:00 Myelocytes % 0 % 11/27/16 17:00 Promyelocytes % 0 % 11/27/16 17:00 Blast Cells % 0 % 11/27/16 17:00 Nucleated RBC % Not Reportable 11/27/16 17:00 Seg Neutrophils # 2.7 K/mm3 (1.8-7.7) 12/26/16 05:21 Seg Neutrophils # Man 7.7 K/mm3 (1.8-7.7) 11/27/16 17:00 Band Neutrophils # 0.0 K/mm3 11/27/16 17:00 Lymphocytes # (Manual) 0.9 K/mm3 (1.2-5.4) L 11/27/16 17:00 Abs React Lymphs (Man) 0.0 K/mm3 11/27/16 17:00 Monocytes # (Manual) 0.9 K/mm3 (0.0-0.8) H 11/27/16 17:00 Eosinophils # (Manual) 0.0 K/mm3 (0.0-0.4) 11/27/16 17:00 Basophils # (Manual) 0.0 K/mm3 (0.0-0.1) 11/27/16 17:00 Metamyelocytes # 0.2 K/mm3 11/27/16 17:00 Myelocytes # 0.0 K/mm3 11/27/16 17:00 Promyelocytes # 0.0 K/mm3 11/27/16 17:00 Blast Cells # 0.0 K/mm3 11/27/16 17:00 WBC Morphology Not Reportable 11/27/16 17:00 Hypersegmented Neuts Not Reportable 11/27/16 17:00 Hyposegmented Neuts Not Reportable 11/27/16 17:00 Hypogranular Neuts Not Reportable 11/27/16 17:00 Smudge Cells Not Reportable 11/27/16 17:00 Toxic Granulation Not Reportable 11/27/16 17:00 Toxic Vacuolation Not Reportable 11/27/16 17:00 Dohle Bodies Not Reportable 11/27/16 17:00 Pelger-Huet Anomaly Not Reportable 11/27/16 17:00 Mati Rods Not Reportable 11/27/16 17:00 Platelet Estimate Consistent w auto 11/27/16 17:00 Clumped Platelets Not Reportable 11/27/16 17:00 Plt Clumps, EDTA Not Reportable 11/27/16 17:00 Large Platelets Not Reportable 11/27/16 17:00 Giant Platelets Not Reportable 11/27/16 17:00 Platelet Satelliting Not Reportable 11/27/16 17:00 Plt Morphology Comment Not Reportable 11/27/16 17:00 RBC Morphology Not Reportable 11/27/16 17:00 Dimorphic RBCs Not Reportable 11/27/16 17:00 Polychromasia Not Reportable 11/27/16 17:00 Hypochromasia Not Reportable 11/27/16 17:00 Poikilocytosis Not Reportable 11/27/16 17:00 Anisocytosis 1+ 11/27/16 17:00 Microcytosis Not Reportable 11/27/16 17:00 Macrocytosis Not Reportable 11/27/16 17:00 Spherocytes Not Reportable 11/27/16 17:00 Pappenheimer Bodies Not Reportable 11/27/16 17:00 Sickle Cells Not Reportable 11/27/16 17:00 Target Cells Not Reportable 11/27/16 17:00 Tear Drop Cells Not Reportable 11/27/16 17:00 Ovalocytes Not Reportable 11/27/16 17:00 Helmet Cells Not Reportable 11/27/16 17:00 Serrato-[place] Bodies Not Reportable 11/27/16 17:00 [place] Rings Not Reportable 11/27/16 17:00 William Cells Not Reportable 11/27/16 17:00 Bite Cells Not Reportable 11/27/16 17:00 Crenated Cell Not Reportable 11/27/16 17:00 Elliptocytes Not Reportable 11/27/16 17:00 Acanthocytes (Spur) Not Reportable 11/27/16 17:00 Rouleaux Not Reportable 11/27/16 17:00 Hemoglobin C Crystals Not Reportable 11/27/16 17:00 Schistocytes Not Reportable 11/27/16 17:00 Malaria parasites Not Reportable 11/27/16 17:00 Michael Bodies Not Reportable 11/27/16 17:00 Hem Pathologist Commnt No 11/27/16 17:00 PT 23.9 Sec. (12.2-14.9) H 11/30/16 17:15 INR 2.13 (0.87-1.13) H 11/30/16 17:15 APTT 62.0 Sec. (24.2-36.6) H* 12/04/16 Unknown Fibrinogen 474 mg/dl (211-480) 11/27/16 23:00 Heparin Anti-Xa Level 0.14 U.I./ml (0.3-0.7) L 11/30/16 Unknown Heparin Anti-Xa, Unfract Negative (Negative) 11/30/16 Unknown Sodium 142 mmol/L (137-145) 12/26/16 05:21 Potassium 3.8 mmol/L (3.6-5.0) 12/26/16 05:21 Chloride 104.0 mmol/L (98-107) 12/26/16 05:21 Carbon Dioxide 23 mmol/L (22-30) 12/26/16 05:21 Anion Gap 19 mmol/L 12/26/16 05:21 BUN 11 mg/dL (9-20) 12/26/16 05:21 Creatinine 0.4 mg/dL (0.8-1.5) L 12/26/16 05:21 Estimated GFR > 60 ml/min 12/26/16 05:21 BUN/Creatinine Ratio 27.50 % 12/26/16 05:21 Glucose 124 mg/dL (75-100) H 12/26/16 05:21 POC Glucose 150 (70-105) H 12/25/16 21:04 Calcium 9.5 mg/dL (8.4-10.2) 12/26/16 05:21 Total Bilirubin 0.3 mg/dL (0.1-1.2) 12/07/16 06:32 Direct Bilirubin 0.2 mg/dL (0-0.2) 11/30/16 04:18 Indirect Bilirubin 0.5 mg/dL 11/30/16 04:18 AST 12 units/L (5-40) 12/07/16 06:32 ALT 21 units/L (7-56) 12/07/16 06:32 Alkaline Phosphatase 83 units/L (35-129) 12/07/16 06:32 Total Protein 6.2 g/dL (6.3-8.2) L 12/07/16 06:32 Albumin 2.9 g/dL (3.9-5) L 12/07/16 06:32 Albumin/Globulin Ratio 0.9 % 12/07/16 06:32 Serotonin Release Assay See scanned report 11/30/16 Unknown Urine Color Yellow (Yellow) 11/30/16 Unknown Urine Turbidity Slightly-cloudy (Clear) 11/30/16 Unknown Urine pH 5.0 (5.0-7.0) 11/30/16 Unknown Ur Specific [place] 1.020 (1.003-1.030) 11/30/16 Unknown Urine Protein 30 mg/dl mg/dL (Negative) 11/30/16 Unknown Urine Glucose (UA) Neg mg/dL (Negative) 11/30/16 Unknown Urine Ketones Neg mg/dL (Negative) 11/30/16 Unknown Urine Blood Sm (Negative) 11/30/16 Unknown Urine Nitrite Neg (Negative) 11/30/16 Unknown Urine Bilirubin Neg (Negative) 11/30/16 Unknown Urine Urobilinogen 2.0 mg/dL (<2.0) 11/30/16 Unknown Ur Leukocyte Esterase Sm (Negative) 11/30/16 Unknown Urine WBC (Auto) 19.0 /HPF (0.0-6.0) H 11/30/16 Unknown Urine RBC (Auto) 5.0 /HPF (0.0-6.0) 11/30/16 Unknown U Epithel Cells (Auto) < 1.0 /HPF (0-13.0) 11/30/16 Unknown Uric Acid Crystals 1+ 11/30/16 Unknown Urine Mucus 1+ /HPF 11/30/16 Unknown Heparin-induced Plt Ab Negative (Negative) 11/30/16 Unknown UF Heparin High Dose 0 % Release (()) 11/30/16 Unknown MIKA UFH Low Dose 0.1 1 % Release (()) 11/30/16 Unknown MIKA UFH Low Dose 0.5 0 % Release (()) 11/30/16 Unknown Blood Type O POSITIVE 11/27/16 02:58 Antibody Screen Negative 11/27/16 02:58
[2016-12-27] MEDS: DILAUDID PO PRN (05:53)
--- NOTE | 2016-12-27 07:08 | Progress Note ---
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 - consult Dr head-imllie neurosurgeon - Continue physical therapy (8) DVT prophylaxis - On therapeutic eliquis. Disposition Plan: SNF/rehab History Interval history: patient is complaining severe back pain. No nursing issues overnight. No fever or chills. Hospitalist Physical - Physical exam Narrative exam: In moderate distress from pain. The patient is obese. Vital signs as documented. Head exam is unremarkable. No scleral icterus . Neck is without jugular venous distension, thyromegaly, or carotid bruits. Lungs are clear to auscultation. Cardiac exam reveals regular rate and Rhythm. First and second heart sounds normal. No murmurs, rubs or gallops. Abdominal exam reveals obese abdomen. Pain on passive or active movement of his legs. 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 - Constitutional Vitals: Temp Pulse Resp BP Pulse Ox 97.8 F 97 H 20 126/78 95 12/27/16 04:45 12/27/16 04:45 12/27/16 04:45 12/27/16 04:45 12/27/16 04:45 General appearance: Present: no acute distress, obese Results - Labs CBC & Chem 7: 12/26/16 05:21 12/26/16 05:21 Labs: Laboratory Last Values WBC 5.9 K/mm3 (4.5-11.0) 12/26/16 05:21 RBC 4.14 M/mm3 (3.65-5.03) 12/26/16 05:21 Hgb 10.7 gm/dl (11.8-15.2) L 12/26/16 05:21 Hct 33.4 % (35.5-45.6) L 12/26/16 05:21 MCV 81 fl (84-94) L 12/26/16 05:21 MCH 26 pg (28-32) L 12/26/16 05:21 MCHC 32 % (32-34) 12/26/16 05:21 RDW 16.6 % (13.2-15.2) H 12/26/16 05:21 Plt Count 278 K/mm3 (140-440) 12/26/16 05:21 Lymph % (Auto) 33.0 % (13.4-35.0) 12/26/16 05:21 [place] % (Auto) 13.5 % (0.0-7.3) H 12/26/16 05:21 Eos % (Auto) 6.9 % (0.0-4.3) H 12/26/16 05:21 Baso % (Auto) 0.9 % (0.0-1.8) 12/26/16 05:21 Lymph # 1.9 K/mm3 (1.2-5.4) 12/26/16 05:21 [place] # 0.8 K/mm3 (0.0-0.8) 12/26/16 05:21 Eos # 0.4 K/mm3 (0.0-0.4) 12/26/16 05:21 Baso # 0.1 K/mm3 (0.0-0.1) 12/26/16 05:21 Add Manual Diff Complete 11/27/16 17:00 Total Counted 100 11/27/16 17:00 Seg Neutrophils % 45.7 % (40.0-70.0) 12/26/16 05:21 Seg Neuts % (Manual) 80.0 % (40.0-70.0) H 11/27/16 17:00 Band Neutrophils % 0 % 11/27/16 17:00 Lymphocytes % (Manual) 9.0 % (13.4-35.0) L 11/27/16 17:00 Reactive Lymphs % (Man) 0 % 11/27/16 17:00 Monocytes % (Manual) 9.0 % (0.0-7.3) H 11/27/16 17:00 Eosinophils % (Manual) 0 % (0.0-4.3) 11/27/16 17:00 Basophils % (Manual) 0 % (0.0-1.8) 11/27/16 17:00 Metamyelocytes % 2.0 % 11/27/16 17:00 Myelocytes % 0 % 11/27/16 17:00 Promyelocytes % 0 % 11/27/16 17:00 Blast Cells % 0 % 11/27/16 17:00 Nucleated RBC % Not Reportable 11/27/16 17:00 Seg Neutrophils # 2.7 K/mm3 (1.8-7.7) 12/26/16 05:21 Seg Neutrophils # Man 7.7 K/mm3 (1.8-7.7) 11/27/16 17:00 Band Neutrophils # 0.0 K/mm3 11/27/16 17:00 Lymphocytes # (Manual) 0.9 K/mm3 (1.2-5.4) L 11/27/16 17:00 Abs React Lymphs (Man) 0.0 K/mm3 11/27/16 17:00 Monocytes # (Manual) 0.9 K/mm3 (0.0-0.8) H 11/27/16 17:00 Eosinophils # (Manual) 0.0 K/mm3 (0.0-0.4) 11/27/16 17:00 Basophils # (Manual) 0.0 K/mm3 (0.0-0.1) 11/27/16 17:00 Metamyelocytes # 0.2 K/mm3 11/27/16 17:00 Myelocytes # 0.0 K/mm3 11/27/16 17:00 Promyelocytes # 0.0 K/mm3 11/27/16 17:00 Blast Cells # 0.0 K/mm3 11/27/16 17:00 WBC Morphology Not Reportable 11/27/16 17:00 Hypersegmented Neuts Not Reportable 11/27/16 17:00 Hyposegmented Neuts Not Reportable 11/27/16 17:00 Hypogranular Neuts Not Reportable 11/27/16 17:00 Smudge Cells Not Reportable 11/27/16 17:00 Toxic Granulation Not Reportable 11/27/16 17:00 Toxic Vacuolation Not Reportable 11/27/16 17:00 Dohle Bodies Not Reportable 11/27/16 17:00 Pelger-Huet Anomaly Not Reportable 11/27/16 17:00 Mati Rods Not Reportable 11/27/16 17:00 Platelet Estimate Consistent w auto 11/27/16 17:00 Clumped Platelets Not Reportable 11/27/16 17:00 Plt Clumps, EDTA Not Reportable 11/27/16 17:00 Large Platelets Not Reportable 11/27/16 17:00 Giant Platelets Not Reportable 11/27/16 17:00 Platelet Satelliting Not Reportable 11/27/16 17:00 Plt Morphology Comment Not Reportable 11/27/16 17:00 RBC Morphology Not Reportable 11/27/16 17:00 Dimorphic RBCs Not Reportable 11/27/16 17:00 Polychromasia Not Reportable 11/27/16 17:00 Hypochromasia Not Reportable 11/27/16 17:00 Poikilocytosis Not Reportable 11/27/16 17:00 Anisocytosis 1+ 11/27/16 17:00 Microcytosis Not Reportable 11/27/16 17:00 Macrocytosis Not Reportable 11/27/16 17:00 Spherocytes Not Reportable 11/27/16 17:00 Pappenheimer Bodies Not Reportable 11/27/16 17:00 Sickle Cells Not Reportable 11/27/16 17:00 Target Cells Not Reportable 11/27/16 17:00 Tear Drop Cells Not Reportable 11/27/16 17:00 Ovalocytes Not Reportable 11/27/16 17:00 Helmet Cells Not Reportable 11/27/16 17:00 [place] Bodies Not Reportable 11/27/16 17:00 [place] Rings Not Reportable 11/27/16 17:00 [place] Cells Not Reportable 11/27/16 17:00 Bite Cells Not Reportable 11/27/16 17:00 Crenated Cell Not Reportable 11/27/16 17:00 Elliptocytes Not Reportable 11/27/16 17:00 Acanthocytes (Spur) Not Reportable 11/27/16 17:00 Rouleaux Not Reportable 11/27/16 17:00 Hemoglobin C Crystals Not Reportable 11/27/16 17:00 Schistocytes Not Reportable 11/27/16 17:00 Malaria parasites Not Reportable 11/27/16 17:00 Michael Bodies Not Reportable 11/27/16 17:00 Hem Pathologist Commnt No 11/27/16 17:00 PT 23.9 Sec. (12.2-14.9) H 11/30/16 17:15 INR 2.13 (0.87-1.13) H 11/30/16 17:15 APTT 62.0 Sec. (24.2-36.6) H* 12/04/16 Unknown Fibrinogen 474 mg/dl (211-480) 11/27/16 23:00 Heparin Anti-Xa Level 0.14 U.I./ml (0.3-0.7) L 11/30/16 Unknown Heparin Anti-Xa, Unfract Negative (Negative) 11/30/16 Unknown Sodium 142 mmol/L (137-145) 12/26/16 05:21 Potassium 3.8 mmol/L (3.6-5.0) 12/26/16 05:21 Chloride 104.0 mmol/L (98-107) 12/26/16 05:21 Carbon Dioxide 23 mmol/L (22-30) 12/26/16 05:21 Anion Gap 19 mmol/L 12/26/16 05:21 BUN 11 mg/dL (9-20) 12/26/16 05:21 Creatinine 0.4 mg/dL (0.8-1.5) L 12/26/16 05:21 Estimated GFR > 60 ml/min 12/26/16 05:21 BUN/Creatinine Ratio 27.50 % 12/26/16 05:21 Glucose 124 mg/dL (75-100) H 12/26/16 05:21 POC Glucose 127 (70-105) H 12/26/16 22:04 Calcium 9.5 mg/dL (8.4-10.2) 12/26/16 05:21 Total Bilirubin 0.3 mg/dL (0.1-1.2) 12/07/16 06:32 Direct Bilirubin 0.2 mg/dL (0-0.2) 11/30/16 04:18 Indirect Bilirubin 0.5 mg/dL 11/30/16 04:18 AST 12 units/L (5-40) 12/07/16 06:32 ALT 21 units/L (7-56) 12/07/16 06:32 Alkaline Phosphatase 83 units/L (35-129) 12/07/16 06:32 Total Protein 6.2 g/dL (6.3-8.2) L 12/07/16 06:32 Albumin 2.9 g/dL (3.9-5) L 12/07/16 06:32 Albumin/Globulin Ratio 0.9 % 12/07/16 06:32 Serotonin Release Assay See scanned report 11/30/16 Unknown Urine Color Yellow (Yellow) 11/30/16 Unknown Urine Turbidity Slightly-cloudy (Clear) 11/30/16 Unknown Urine pH 5.0 (5.0-7.0) 11/30/16 Unknown Ur Specific [place] 1.020 (1.003-1.030) 11/30/16 Unknown Urine Protein 30 mg/dl mg/dL (Negative) 11/30/16 Unknown Urine Glucose (UA) Neg mg/dL (Negative) 11/30/16 Unknown Urine Ketones Neg mg/dL (Negative) 11/30/16 Unknown Urine Blood Sm (Negative) 11/30/16 Unknown Urine Nitrite Neg (Negative) 11/30/16 Unknown Urine Bilirubin Neg (Negative) 11/30/16 Unknown Urine Urobilinogen 2.0 mg/dL (<2.0) 11/30/16 Unknown Ur Leukocyte Esterase Sm (Negative) 11/30/16 Unknown Urine WBC (Auto) 19.0 /HPF (0.0-6.0) H 11/30/16 Unknown Urine RBC (Auto) 5.0 /HPF (0.0-6.0) 11/30/16 Unknown U Epithel Cells (Auto) < 1.0 /HPF (0-13.0) 11/30/16 Unknown Uric Acid Crystals 1+ 11/30/16 Unknown Urine Mucus 1+ /HPF 11/30/16 Unknown Heparin-induced Plt Ab Negative (Negative) 11/30/16 Unknown UF Heparin High Dose 0 % Release (()) 11/30/16 Unknown MIKA UFH Low Dose 0.1 1 % Release (()) 11/30/16 Unknown MIKA UFH Low Dose 0.5 0 % Release (()) 11/30/16 Unknown Blood Type O POSITIVE 11/27/16 02:58 Antibody Screen Negative 11/27/16 02:58
[2016-12-27] MEDS: DOLOPHINE PO SCH (10:25)
[2016-12-27] MEDS: CARAFATE PO SCH ×4 (10:25→21:48)
[2016-12-27] MEDS: PROTONIX PO SCH ×2 (10:26→21:48)
[2016-12-27] MEDS: PEPCID PO SCH ×2 (10:26→21:48)
[2016-12-27] MEDS: ELIQUIS PO SCH ×2 (10:26→21:48)
[2016-12-27] MEDS: NOVOLOG SUB-Q SCH ×3 (10:27→16:58)
[2016-12-27] MEDS: NYSTOP TP SCH (10:27)
[2016-12-27] MEDS: DILAUDID IM PRN (13:23)
[2016-12-27] MEDS: XANAX PO PRN (16:15)
[2016-12-27] MEDS: NEURONTIN PO SCH (18:51)
[2016-12-27] MEDS: ROXICODONE PO PRN (18:51)
[2016-12-28] MEDS: DILAUDID PO PRN ×2 (01:36→05:42)
[2016-12-28] MEDS: NOVOLOG SUB-Q SCH ×5 (05:04→22:46)
[2016-12-28] MEDS: NYSTOP TP SCH ×3 (05:05→21:53)
[2016-12-28] MEDS: CARAFATE PO SCH ×4 (09:24→21:55)
[2016-12-28] MEDS: ELIQUIS PO SCH ×2 (09:24→21:54)
[2016-12-28] MEDS: DOLOPHINE PO SCH (09:24)
[2016-12-28] MEDS: PEPCID PO SCH ×2 (09:24→21:54)
[2016-12-28] MEDS: PROTONIX PO SCH ×2 (09:25→21:55)
[2016-12-28] MEDS: XANAX PO PRN ×2 (11:38→23:00)
[2016-12-28] MEDS: DILAUDID IM PRN (13:57)
--- NOTE | 2016-12-28 16:30 | Progress Note ---
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 - Continue physical therapy (8) DVT prophylaxis - On therapeutic eliquis. Disposition Plan: Rehab next week History Interval history: patient is complaining severe back pain. No nursing issues overnight. No fever or chills. Hospitalist Physical - Physical exam Narrative exam: In moderate distress from pain. The patient is obese. Vital signs as documented. Head exam is unremarkable. No scleral icterus . Neck is without jugular venous distension, thyromegaly, or carotid bruits. Lungs are clear to auscultation. Cardiac exam reveals regular rate and Rhythm. First and second heart sounds normal. No murmurs, rubs or gallops. Abdominal exam reveals obese abdomen. Pain on passive or active movement of his legs. 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 - Constitutional Vitals: Temp Pulse Resp BP Pulse Ox 98.2 F 104 H 18 122/76 97 12/28/16 08:15 12/28/16 08:15 12/28/16 08:15 12/28/16 08:15 12/28/16 08:15 General appearance: Present: no acute distress, obese Results - Labs CBC & Chem 7: 12/26/16 05:21 12/26/16 05:21 Labs: Laboratory Last Values WBC 5.9 K/mm3 (4.5-11.0) 12/26/16 05:21 RBC 4.14 M/mm3 (3.65-5.03) 12/26/16 05:21 Hgb 10.7 gm/dl (11.8-15.2) L 12/26/16 05:21 Hct 33.4 % (35.5-45.6) L 12/26/16 05:21 MCV 81 fl (84-94) L 12/26/16 05:21 MCH 26 pg (28-32) L 12/26/16 05:21 MCHC 32 % (32-34) 12/26/16 05:21 RDW 16.6 % (13.2-15.2) H 12/26/16 05:21 Plt Count 278 K/mm3 (140-440) 12/26/16 05:21 Lymph % (Auto) 33.0 % (13.4-35.0) 12/26/16 05:21 [place] % (Auto) 13.5 % (0.0-7.3) H 12/26/16 05:21 Eos % (Auto) 6.9 % (0.0-4.3) H 12/26/16 05:21 Baso % (Auto) 0.9 % (0.0-1.8) 12/26/16 05:21 Lymph # 1.9 K/mm3 (1.2-5.4) 12/26/16 05:21 [place] # 0.8 K/mm3 (0.0-0.8) 12/26/16 05:21 Eos # 0.4 K/mm3 (0.0-0.4) 12/26/16 05:21 Baso # 0.1 K/mm3 (0.0-0.1) 12/26/16 05:21 Add Manual Diff Complete 11/27/16 17:00 Total Counted 100 11/27/16 17:00 Seg Neutrophils % 45.7 % (40.0-70.0) 12/26/16 05:21 Seg Neuts % (Manual) 80.0 % (40.0-70.0) H 11/27/16 17:00 Band Neutrophils % 0 % 11/27/16 17:00 Lymphocytes % (Manual) 9.0 % (13.4-35.0) L 11/27/16 17:00 Reactive Lymphs % (Man) 0 % 11/27/16 17:00 Monocytes % (Manual) 9.0 % (0.0-7.3) H 11/27/16 17:00 Eosinophils % (Manual) 0 % (0.0-4.3) 11/27/16 17:00 Basophils % (Manual) 0 % (0.0-1.8) 11/27/16 17:00 Metamyelocytes % 2.0 % 11/27/16 17:00 Myelocytes % 0 % 11/27/16 17:00 Promyelocytes % 0 % 11/27/16 17:00 Blast Cells % 0 % 11/27/16 17:00 Nucleated RBC % Not Reportable 11/27/16 17:00 Seg Neutrophils # 2.7 K/mm3 (1.8-7.7) 12/26/16 05:21 Seg Neutrophils # Man 7.7 K/mm3 (1.8-7.7) 11/27/16 17:00 Band Neutrophils # 0.0 K/mm3 11/27/16 17:00 Lymphocytes # (Manual) 0.9 K/mm3 (1.2-5.4) L 11/27/16 17:00 Abs React Lymphs (Man) 0.0 K/mm3 11/27/16 17:00 Monocytes # (Manual) 0.9 K/mm3 (0.0-0.8) H 11/27/16 17:00 Eosinophils # (Manual) 0.0 K/mm3 (0.0-0.4) 11/27/16 17:00 Basophils # (Manual) 0.0 K/mm3 (0.0-0.1) 11/27/16 17:00 Metamyelocytes # 0.2 K/mm3 11/27/16 17:00 Myelocytes # 0.0 K/mm3 11/27/16 17:00 Promyelocytes # 0.0 K/mm3 11/27/16 17:00 Blast Cells # 0.0 K/mm3 11/27/16 17:00 WBC Morphology Not Reportable 11/27/16 17:00 Hypersegmented Neuts Not Reportable 11/27/16 17:00 Hyposegmented Neuts Not Reportable 11/27/16 17:00 Hypogranular Neuts Not Reportable 11/27/16 17:00 Smudge Cells Not Reportable 11/27/16 17:00 Toxic Granulation Not Reportable 11/27/16 17:00 Toxic Vacuolation Not Reportable 11/27/16 17:00 Dohle Bodies Not Reportable 11/27/16 17:00 Pelger-Huet Anomaly Not Reportable 11/27/16 17:00 Mati Rods Not Reportable 11/27/16 17:00 Platelet Estimate Consistent w auto 11/27/16 17:00 Clumped Platelets Not Reportable 11/27/16 17:00 Plt Clumps, EDTA Not Reportable 11/27/16 17:00 Large Platelets Not Reportable 11/27/16 17:00 Giant Platelets Not Reportable 11/27/16 17:00 Platelet Satelliting Not Reportable 11/27/16 17:00 Plt Morphology Comment Not Reportable 11/27/16 17:00 RBC Morphology Not Reportable 11/27/16 17:00 Dimorphic RBCs Not Reportable 11/27/16 17:00 Polychromasia Not Reportable 11/27/16 17:00 Hypochromasia Not Reportable 11/27/16 17:00 Poikilocytosis Not Reportable 11/27/16 17:00 Anisocytosis 1+ 11/27/16 17:00 Microcytosis Not Reportable 11/27/16 17:00 Macrocytosis Not Reportable 11/27/16 17:00 Spherocytes Not Reportable 11/27/16 17:00 Pappenheimer Bodies Not Reportable 11/27/16 17:00 Sickle Cells Not Reportable 11/27/16 17:00 Target Cells Not Reportable 11/27/16 17:00 Tear Drop Cells Not Reportable 11/27/16 17:00 Ovalocytes Not Reportable 11/27/16 17:00 Helmet Cells Not Reportable 11/27/16 17:00 Serrato-[place] Bodies Not Reportable 11/27/16 17:00 [place] Rings Not Reportable 11/27/16 17:00 William Cells Not Reportable 11/27/16 17:00 Bite Cells Not Reportable 11/27/16 17:00 Crenated Cell Not Reportable 11/27/16 17:00 Elliptocytes Not Reportable 11/27/16 17:00 Acanthocytes (Spur) Not Reportable 11/27/16 17:00 Rouleaux Not Reportable 11/27/16 17:00 Hemoglobin C Crystals Not Reportable 11/27/16 17:00 Schistocytes Not Reportable 11/27/16 17:00 Malaria parasites Not Reportable 11/27/16 17:00 Michael Bodies Not Reportable 11/27/16 17:00 Hem Pathologist Commnt No 11/27/16 17:00 PT 23.9 Sec. (12.2-14.9) H 11/30/16 17:15 INR 2.13 (0.87-1.13) H 11/30/16 17:15 APTT 62.0 Sec. (24.2-36.6) H* 12/04/16 Unknown Fibrinogen 474 mg/dl (211-480) 11/27/16 23:00 Heparin Anti-Xa Level 0.14 U.I./ml (0.3-0.7) L 11/30/16 Unknown Heparin Anti-Xa, Unfract Negative (Negative) 11/30/16 Unknown Sodium 142 mmol/L (137-145) 12/26/16 05:21 Potassium 3.8 mmol/L (3.6-5.0) 12/26/16 05:21 Chloride 104.0 mmol/L (98-107) 12/26/16 05:21 Carbon Dioxide 23 mmol/L (22-30) 12/26/16 05:21 Anion Gap 19 mmol/L 12/26/16 05:21 BUN 11 mg/dL (9-20) 12/26/16 05:21 Creatinine 0.4 mg/dL (0.8-1.5) L 12/26/16 05:21 Estimated GFR > 60 ml/min 12/26/16 05:21 BUN/Creatinine Ratio 27.50 % 12/26/16 05:21 Glucose 124 mg/dL (75-100) H 12/26/16 05:21 POC Glucose 144 (70-105) H 12/28/16 12:06 Calcium 9.5 mg/dL (8.4-10.2) 12/26/16 05:21 Total Bilirubin 0.3 mg/dL (0.1-1.2) 12/07/16 06:32 Direct Bilirubin 0.2 mg/dL (0-0.2) 11/30/16 04:18 Indirect Bilirubin 0.5 mg/dL 11/30/16 04:18 AST 12 units/L (5-40) 12/07/16 06:32 ALT 21 units/L (7-56) 12/07/16 06:32 Alkaline Phosphatase 83 units/L (35-129) 12/07/16 06:32 Total Protein 6.2 g/dL (6.3-8.2) L 12/07/16 06:32 Albumin 2.9 g/dL (3.9-5) L 12/07/16 06:32 Albumin/Globulin Ratio 0.9 % 12/07/16 06:32 Serotonin Release Assay See scanned report 11/30/16 Unknown Urine Color Yellow (Yellow) 11/30/16 Unknown Urine Turbidity Slightly-cloudy (Clear) 11/30/16 Unknown Urine pH 5.0 (5.0-7.0) 11/30/16 Unknown Ur Specific [place] 1.020 (1.003-1.030) 11/30/16 Unknown Urine Protein 30 mg/dl mg/dL (Negative) 11/30/16 Unknown Urine Glucose (UA) Neg mg/dL (Negative) 11/30/16 Unknown Urine Ketones Neg mg/dL (Negative) 11/30/16 Unknown Urine Blood Sm (Negative) 11/30/16 Unknown Urine Nitrite Neg (Negative) 11/30/16 Unknown Urine Bilirubin Neg (Negative) 11/30/16 Unknown Urine Urobilinogen 2.0 mg/dL (<2.0) 11/30/16 Unknown Ur Leukocyte Esterase Sm (Negative) 11/30/16 Unknown Urine WBC (Auto) 19.0 /HPF (0.0-6.0) H 11/30/16 Unknown Urine RBC (Auto) 5.0 /HPF (0.0-6.0) 11/30/16 Unknown U Epithel Cells (Auto) < 1.0 /HPF (0-13.0) 11/30/16 Unknown Uric Acid Crystals 1+ 11/30/16 Unknown Urine Mucus 1+ /HPF 11/30/16 Unknown Heparin-induced Plt Ab Negative (Negative) 11/30/16 Unknown UF Heparin High Dose 0 % Release (()) 11/30/16 Unknown MIKA UFH Low Dose 0.1 1 % Release (()) 11/30/16 Unknown MIKA UFH Low Dose 0.5 0 % Release (()) 11/30/16 Unknown Blood Type O POSITIVE 11/27/16 02:58 Antibody Screen Negative 11/27/16 02:58
[2016-12-28] MEDS: NEURONTIN PO SCH (17:19)
[2016-12-28] MEDS: ROXICODONE PO PRN ×2 (17:25→23:00)
[2016-12-29] MEDS: ROXICODONE PO PRN (06:14)
[2016-12-29] MEDS: NOVOLOG SUB-Q SCH ×3 (07:54→17:33)
[2016-12-29] MEDS: CARAFATE PO SCH ×4 (08:43→21:18)
[2016-12-29] MEDS: PEPCID PO SCH ×2 (10:25→21:18)
[2016-12-29] MEDS: PROTONIX PO SCH ×2 (10:25→21:18)
[2016-12-29] MEDS: ELIQUIS PO SCH ×2 (10:26→21:18)
[2016-12-29] MEDS: NYSTOP TP SCH ×2 (10:26→21:18)
[2016-12-29] MEDS: DOLOPHINE PO SCH (10:26)
[2016-12-29] MEDS: XANAX PO PRN ×2 (11:38→18:58)
--- NOTE | 2016-12-29 13:01 | Progress Note ---
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 - Continue physical therapy (8) DVT prophylaxis - On therapeutic eliquis. New issues - swelling on the left thigh - U/S is ordered Disposition Plan: Rehab next week History Interval history: patient still have back pain. No nursing issues overnight. No fever or chills. Hospitalist Physical - Physical exam Narrative exam: In moderate distress from pain. The patient is obese. Vital signs as documented. Head exam is unremarkable. No scleral icterus . Neck is without jugular venous distension, thyromegaly, or carotid bruits. Lungs are clear to auscultation. Cardiac exam reveals regular rate and Rhythm. First and second heart sounds normal. No murmurs, rubs or gallops. Abdominal exam reveals obese abdomen. Swelling on the left thigh, sore but no tenderness or flactulence. SYSTEMS REQUIREMENTS PLANNER: Alert and oriented 3. - Constitutional Vitals: Temp Pulse Resp BP Pulse Ox 98.7 F 92 H 16 121/72 99 12/29/16 07:26 12/29/16 07:26 12/29/16 07:26 12/29/16 07:26 12/29/16 07:26 General appearance: Present: no acute distress, obese Results - Labs CBC & Chem 7: 12/26/16 05:21 12/26/16 05:21 Labs: Laboratory Last Values WBC 5.9 K/mm3 (4.5-11.0) 12/26/16 05:21 RBC 4.14 M/mm3 (3.65-5.03) 12/26/16 05:21 Hgb 10.7 gm/dl (11.8-15.2) L 12/26/16 05:21 Hct 33.4 % (35.5-45.6) L 12/26/16 05:21 MCV 81 fl (84-94) L 12/26/16 05:21 MCH 26 pg (28-32) L 12/26/16 05:21 MCHC 32 % (32-34) 12/26/16 05:21 RDW 16.6 % (13.2-15.2) H 12/26/16 05:21 Plt Count 278 K/mm3 (140-440) 12/26/16 05:21 Lymph % (Auto) 33.0 % (13.4-35.0) 12/26/16 05:21 [place] % (Auto) 13.5 % (0.0-7.3) H 12/26/16 05:21 Eos % (Auto) 6.9 % (0.0-4.3) H 12/26/16 05:21 Baso % (Auto) 0.9 % (0.0-1.8) 12/26/16 05:21 Lymph # 1.9 K/mm3 (1.2-5.4) 12/26/16 05:21 [place] # 0.8 K/mm3 (0.0-0.8) 12/26/16 05:21 Eos # 0.4 K/mm3 (0.0-0.4) 12/26/16 05:21 Baso # 0.1 K/mm3 (0.0-0.1) 12/26/16 05:21 Add Manual Diff Complete 11/27/16 17:00 Total Counted 100 11/27/16 17:00 Seg Neutrophils % 45.7 % (40.0-70.0) 12/26/16 05:21 Seg Neuts % (Manual) 80.0 % (40.0-70.0) H 11/27/16 17:00 Band Neutrophils % 0 % 11/27/16 17:00 Lymphocytes % (Manual) 9.0 % (13.4-35.0) L 11/27/16 17:00 Reactive Lymphs % (Man) 0 % 11/27/16 17:00 Monocytes % (Manual) 9.0 % (0.0-7.3) H 11/27/16 17:00 Eosinophils % (Manual) 0 % (0.0-4.3) 11/27/16 17:00 Basophils % (Manual) 0 % (0.0-1.8) 11/27/16 17:00 Metamyelocytes % 2.0 % 11/27/16 17:00 Myelocytes % 0 % 11/27/16 17:00 Promyelocytes % 0 % 11/27/16 17:00 Blast Cells % 0 % 11/27/16 17:00 Nucleated RBC % Not Reportable 11/27/16 17:00 Seg Neutrophils # 2.7 K/mm3 (1.8-7.7) 12/26/16 05:21 Seg Neutrophils # Man 7.7 K/mm3 (1.8-7.7) 11/27/16 17:00 Band Neutrophils # 0.0 K/mm3 11/27/16 17:00 Lymphocytes # (Manual) 0.9 K/mm3 (1.2-5.4) L 11/27/16 17:00 Abs React Lymphs (Man) 0.0 K/mm3 11/27/16 17:00 Monocytes # (Manual) 0.9 K/mm3 (0.0-0.8) H 11/27/16 17:00 Eosinophils # (Manual) 0.0 K/mm3 (0.0-0.4) 11/27/16 17:00 Basophils # (Manual) 0.0 K/mm3 (0.0-0.1) 11/27/16 17:00 Metamyelocytes # 0.2 K/mm3 11/27/16 17:00 Myelocytes # 0.0 K/mm3 11/27/16 17:00 Promyelocytes # 0.0 K/mm3 11/27/16 17:00 Blast Cells # 0.0 K/mm3 11/27/16 17:00 WBC Morphology Not Reportable 11/27/16 17:00 Hypersegmented Neuts Not Reportable 11/27/16 17:00 Hyposegmented Neuts Not Reportable 11/27/16 17:00 Hypogranular Neuts Not Reportable 11/27/16 17:00 Smudge Cells Not Reportable 11/27/16 17:00 Toxic Granulation Not Reportable 11/27/16 17:00 Toxic Vacuolation Not Reportable 11/27/16 17:00 Dohle Bodies Not Reportable 11/27/16 17:00 Pelger-Huet Anomaly Not Reportable 11/27/16 17:00 Mati Rods Not Reportable 11/27/16 17:00 Platelet Estimate Consistent w auto 11/27/16 17:00 Clumped Platelets Not Reportable 11/27/16 17:00 Plt Clumps, EDTA Not Reportable 11/27/16 17:00 Large Platelets Not Reportable 11/27/16 17:00 Giant Platelets Not Reportable 11/27/16 17:00 Platelet Satelliting Not Reportable 11/27/16 17:00 Plt Morphology Comment Not Reportable 11/27/16 17:00 RBC Morphology Not Reportable 11/27/16 17:00 Dimorphic RBCs Not Reportable 11/27/16 17:00 Polychromasia Not Reportable 11/27/16 17:00 Hypochromasia Not Reportable 11/27/16 17:00 Poikilocytosis Not Reportable 11/27/16 17:00 Anisocytosis 1+ 11/27/16 17:00 Microcytosis Not Reportable 11/27/16 17:00 Macrocytosis Not Reportable 11/27/16 17:00 Spherocytes Not Reportable 11/27/16 17:00 Pappenheimer Bodies Not Reportable 11/27/16 17:00 Sickle Cells Not Reportable 11/27/16 17:00 Target Cells Not Reportable 11/27/16 17:00 Tear Drop Cells Not Reportable 11/27/16 17:00 Ovalocytes Not Reportable 11/27/16 17:00 Helmet Cells Not Reportable 11/27/16 17:00 Serrato-[place] Bodies Not Reportable 11/27/16 17:00 [place] Rings Not Reportable 11/27/16 17:00 William Cells Not Reportable 11/27/16 17:00 Bite Cells Not Reportable 11/27/16 17:00 Crenated Cell Not Reportable 11/27/16 17:00 Elliptocytes Not Reportable 11/27/16 17:00 Acanthocytes (Spur) Not Reportable 11/27/16 17:00 Rouleaux Not Reportable 11/27/16 17:00 Hemoglobin C Crystals Not Reportable 11/27/16 17:00 Schistocytes Not Reportable 11/27/16 17:00 Malaria parasites Not Reportable 11/27/16 17:00 Michael Bodies Not Reportable 11/27/16 17:00 Hem Pathologist Commnt No 11/27/16 17:00 PT 23.9 Sec. (12.2-14.9) H 11/30/16 17:15 INR 2.13 (0.87-1.13) H 11/30/16 17:15 APTT 62.0 Sec. (24.2-36.6) H* 12/04/16 Unknown Fibrinogen 474 mg/dl (211-480) 11/27/16 23:00 Heparin Anti-Xa Level 0.14 U.I./ml (0.3-0.7) L 11/30/16 Unknown Heparin Anti-Xa, Unfract Negative (Negative) 11/30/16 Unknown Sodium 142 mmol/L (137-145) 12/26/16 05:21 Potassium 3.8 mmol/L (3.6-5.0) 12/26/16 05:21 Chloride 104.0 mmol/L (98-107) 12/26/16 05:21 Carbon Dioxide 23 mmol/L (22-30) 12/26/16 05:21 Anion Gap 19 mmol/L 12/26/16 05:21 BUN 11 mg/dL (9-20) 12/26/16 05:21 Creatinine 0.4 mg/dL (0.8-1.5) L 12/26/16 05:21 Estimated GFR > 60 ml/min 12/26/16 05:21 BUN/Creatinine Ratio 27.50 % 12/26/16 05:21 Glucose 124 mg/dL (75-100) H 12/26/16 05:21 POC Glucose 115 (70-105) H 12/29/16 11:31 Calcium 9.5 mg/dL (8.4-10.2) 12/26/16 05:21 Total Bilirubin 0.3 mg/dL (0.1-1.2) 12/07/16 06:32 Direct Bilirubin 0.2 mg/dL (0-0.2) 11/30/16 04:18 Indirect Bilirubin 0.5 mg/dL 11/30/16 04:18 AST 12 units/L (5-40) 12/07/16 06:32 ALT 21 units/L (7-56) 12/07/16 06:32 Alkaline Phosphatase 83 units/L (35-129) 12/07/16 06:32 Total Protein 6.2 g/dL (6.3-8.2) L 12/07/16 06:32 Albumin 2.9 g/dL (3.9-5) L 12/07/16 06:32 Albumin/Globulin Ratio 0.9 % 12/07/16 06:32 Serotonin Release Assay See scanned report 11/30/16 Unknown Urine Color Yellow (Yellow) 11/30/16 Unknown Urine Turbidity Slightly-cloudy (Clear) 11/30/16 Unknown Urine pH 5.0 (5.0-7.0) 11/30/16 Unknown Ur Specific [place] 1.020 (1.003-1.030) 11/30/16 Unknown Urine Protein 30 mg/dl mg/dL (Negative) 11/30/16 Unknown Urine Glucose (UA) Neg mg/dL (Negative) 11/30/16 Unknown Urine Ketones Neg mg/dL (Negative) 11/30/16 Unknown Urine Blood Sm (Negative) 11/30/16 Unknown Urine Nitrite Neg (Negative) 11/30/16 Unknown Urine Bilirubin Neg (Negative) 11/30/16 Unknown Urine Urobilinogen 2.0 mg/dL (<2.0) 11/30/16 Unknown Ur Leukocyte Esterase Sm (Negative) 11/30/16 Unknown Urine WBC (Auto) 19.0 /HPF (0.0-6.0) H 11/30/16 Unknown Urine RBC (Auto) 5.0 /HPF (0.0-6.0) 11/30/16 Unknown U Epithel Cells (Auto) < 1.0 /HPF (0-13.0) 11/30/16 Unknown Uric Acid Crystals 1+ 11/30/16 Unknown Urine Mucus 1+ /HPF 11/30/16 Unknown Heparin-induced Plt Ab Negative (Negative) 11/30/16 Unknown UF Heparin High Dose 0 % Release (()) 11/30/16 Unknown MIKA UFH Low Dose 0.1 1 % Release (()) 11/30/16 Unknown MIKA UFH Low Dose 0.5 0 % Release (()) 11/30/16 Unknown Blood Type O POSITIVE 11/27/16 02:58 Antibody Screen Negative 11/27/16 02:58
[2016-12-29] MEDS: DILAUDID PO PRN ×2 (14:51→18:59)
[2016-12-29] MEDS: NEURONTIN PO SCH (17:34)
[2016-12-30] MEDS: NOVOLOG SUB-Q SCH ×6 (06:48→22:46)
[2016-12-30] MEDS: CARAFATE PO SCH ×4 (08:21→22:39)
[2016-12-30] MEDS: DOLOPHINE PO SCH (10:10)
[2016-12-30] MEDS: PEPCID PO SCH ×2 (10:11→22:40)
[2016-12-30] MEDS: PROTONIX PO SCH ×2 (10:11→22:39)
[2016-12-30] MEDS: NYSTOP TP SCH ×2 (10:11→22:42)
[2016-12-30] MEDS: ELIQUIS PO SCH ×2 (10:11→22:39)
[2016-12-30] MEDS: XANAX PO PRN ×2 (10:30→18:01)
--- NOTE | 2016-12-30 11:09 | Ultrasound Report ---
Sonogram mass anterior aspect of left thigh: Findings: Predominantly cystic mixed echogenic mass with suspected areas of calcification noted in the anterior aspect of thigh measuring 12.7 x 6.1 x 7.7 cm with extension superiorly which measures 8.6 x 2.6 x 5.2 cm. The total length of the mass is 21.3 cm. 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 No definite vascularity was noted at the mass. If clinically indicated MRI scan advised
[2016-12-30] MEDS: DILAUDID PO PRN ×3 (12:05→22:39)
--- NOTE | 2016-12-30 13:58 | Progress Note ---
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 - Continue physical therapy (8) DVT prophylaxis - On therapeutic eliquis. New issues - swelling on the left thigh - U/S is ordered possible hemtoma/ chronic abscess - MRI ordered Disposition Plan: rehab placement History Interval history: patient still have back pain. No nursing issues overnight. No fever or chills. Hospitalist Physical - Physical exam Narrative exam: In moderate distress from pain. The patient is obese. Vital signs as documented. Head exam is unremarkable. No scleral icterus . Neck is without jugular venous distension, thyromegaly, or carotid bruits. Lungs are clear to auscultation. Cardiac exam reveals regular rate and Rhythm. First and second heart sounds normal. No murmurs, rubs or gallops. Abdominal exam reveals obese abdomen. Swelling on the left thigh, sore but no tenderness or flactulence. BOTTOM BRUSHER: Alert and oriented 3. - Constitutional Vitals: Temp Pulse Resp BP Pulse Ox 97.2 F L 96 H 16 126/77 96 12/30/16 08:13 12/30/16 08:13 12/30/16 08:13 12/30/16 08:13 12/30/16 08:13 General appearance: Present: no acute distress, obese Results - Labs CBC & Chem 7: 12/26/16 05:21 12/26/16 05:21 Labs: Laboratory Last Values WBC 5.9 K/mm3 (4.5-11.0) 12/26/16 05:21 RBC 4.14 M/mm3 (3.65-5.03) 12/26/16 05:21 Hgb 10.7 gm/dl (11.8-15.2) L 12/26/16 05:21 Hct 33.4 % (35.5-45.6) L 12/26/16 05:21 MCV 81 fl (84-94) L 12/26/16 05:21 MCH 26 pg (28-32) L 12/26/16 05:21 MCHC 32 % (32-34) 12/26/16 05:21 RDW 16.6 % (13.2-15.2) H 12/26/16 05:21 Plt Count 278 K/mm3 (140-440) 12/26/16 05:21 Lymph % (Auto) 33.0 % (13.4-35.0) 12/26/16 05:21 [place] % (Auto) 13.5 % (0.0-7.3) H 12/26/16 05:21 Eos % (Auto) 6.9 % (0.0-4.3) H 12/26/16 05:21 Baso % (Auto) 0.9 % (0.0-1.8) 12/26/16 05:21 Lymph # 1.9 K/mm3 (1.2-5.4) 12/26/16 05:21 [place] # 0.8 K/mm3 (0.0-0.8) 12/26/16 05:21 Eos # 0.4 K/mm3 (0.0-0.4) 12/26/16 05:21 Baso # 0.1 K/mm3 (0.0-0.1) 12/26/16 05:21 Add Manual Diff Complete 11/27/16 17:00 Total Counted 100 11/27/16 17:00 Seg Neutrophils % 45.7 % (40.0-70.0) 12/26/16 05:21 Seg Neuts % (Manual) 80.0 % (40.0-70.0) H 11/27/16 17:00 Band Neutrophils % 0 % 11/27/16 17:00 Lymphocytes % (Manual) 9.0 % (13.4-35.0) L 11/27/16 17:00 Reactive Lymphs % (Man) 0 % 11/27/16 17:00 Monocytes % (Manual) 9.0 % (0.0-7.3) H 11/27/16 17:00 Eosinophils % (Manual) 0 % (0.0-4.3) 11/27/16 17:00 Basophils % (Manual) 0 % (0.0-1.8) 11/27/16 17:00 Metamyelocytes % 2.0 % 11/27/16 17:00 Myelocytes % 0 % 11/27/16 17:00 Promyelocytes % 0 % 11/27/16 17:00 Blast Cells % 0 % 11/27/16 17:00 Nucleated RBC % Not Reportable 11/27/16 17:00 Seg Neutrophils # 2.7 K/mm3 (1.8-7.7) 12/26/16 05:21 Seg Neutrophils # Man 7.7 K/mm3 (1.8-7.7) 11/27/16 17:00 Band Neutrophils # 0.0 K/mm3 11/27/16 17:00 Lymphocytes # (Manual) 0.9 K/mm3 (1.2-5.4) L 11/27/16 17:00 Abs React Lymphs (Man) 0.0 K/mm3 11/27/16 17:00 Monocytes # (Manual) 0.9 K/mm3 (0.0-0.8) H 11/27/16 17:00 Eosinophils # (Manual) 0.0 K/mm3 (0.0-0.4) 11/27/16 17:00 Basophils # (Manual) 0.0 K/mm3 (0.0-0.1) 11/27/16 17:00 Metamyelocytes # 0.2 K/mm3 11/27/16 17:00 Myelocytes # 0.0 K/mm3 11/27/16 17:00 Promyelocytes # 0.0 K/mm3 11/27/16 17:00 Blast Cells # 0.0 K/mm3 11/27/16 17:00 WBC Morphology Not Reportable 11/27/16 17:00 Hypersegmented Neuts Not Reportable 11/27/16 17:00 Hyposegmented Neuts Not Reportable 11/27/16 17:00 Hypogranular Neuts Not Reportable 11/27/16 17:00 Smudge Cells Not Reportable 11/27/16 17:00 Toxic Granulation Not Reportable 11/27/16 17:00 Toxic Vacuolation Not Reportable 11/27/16 17:00 Dohle Bodies Not Reportable 11/27/16 17:00 Pelger-Huet Anomaly Not Reportable 11/27/16 17:00 Mati Rods Not Reportable 11/27/16 17:00 Platelet Estimate Consistent w auto 11/27/16 17:00 Clumped Platelets Not Reportable 11/27/16 17:00 Plt Clumps, EDTA Not Reportable 11/27/16 17:00 Large Platelets Not Reportable 11/27/16 17:00 Giant Platelets Not Reportable 11/27/16 17:00 Platelet Satelliting Not Reportable 11/27/16 17:00 Plt Morphology Comment Not Reportable 11/27/16 17:00 RBC Morphology Not Reportable 11/27/16 17:00 Dimorphic RBCs Not Reportable 11/27/16 17:00 Polychromasia Not Reportable 11/27/16 17:00 Hypochromasia Not Reportable 11/27/16 17:00 Poikilocytosis Not Reportable 11/27/16 17:00 Anisocytosis 1+ 11/27/16 17:00 Microcytosis Not Reportable 11/27/16 17:00 Macrocytosis Not Reportable 11/27/16 17:00 Spherocytes Not Reportable 11/27/16 17:00 Pappenheimer Bodies Not Reportable 11/27/16 17:00 Sickle Cells Not Reportable 11/27/16 17:00 Target Cells Not Reportable 11/27/16 17:00 Tear Drop Cells Not Reportable 11/27/16 17:00 Ovalocytes Not Reportable 11/27/16 17:00 Helmet Cells Not Reportable 11/27/16 17:00 Serrato-Leigh Bodies Not Reportable 11/27/16 17:00 [place] Rings Not Reportable 11/27/16 17:00 William Cells Not Reportable 11/27/16 17:00 Bite Cells Not Reportable 11/27/16 17:00 Crenated Cell Not Reportable 11/27/16 17:00 Elliptocytes Not Reportable 11/27/16 17:00 Acanthocytes (Spur) Not Reportable 11/27/16 17:00 Rouleaux Not Reportable 11/27/16 17:00 Hemoglobin C Crystals Not Reportable 11/27/16 17:00 Schistocytes Not Reportable 11/27/16 17:00 Malaria parasites Not Reportable 11/27/16 17:00 Michael Bodies Not Reportable 11/27/16 17:00 Hem Pathologist Commnt No 11/27/16 17:00 PT 23.9 Sec. (12.2-14.9) H 11/30/16 17:15 INR 2.13 (0.87-1.13) H 11/30/16 17:15 APTT 62.0 Sec. (24.2-36.6) H* 12/04/16 Unknown Fibrinogen 474 mg/dl (211-480) 11/27/16 23:00 Heparin Anti-Xa Level 0.14 U.I./ml (0.3-0.7) L 11/30/16 Unknown Heparin Anti-Xa, Unfract Negative (Negative) 11/30/16 Unknown Sodium 142 mmol/L (137-145) 12/26/16 05:21 Potassium 3.8 mmol/L (3.6-5.0) 12/26/16 05:21 Chloride 104.0 mmol/L (98-107) 12/26/16 05:21 Carbon Dioxide 23 mmol/L (22-30) 12/26/16 05:21 Anion Gap 19 mmol/L 12/26/16 05:21 BUN 11 mg/dL (9-20) 12/26/16 05:21 Creatinine 0.4 mg/dL (0.8-1.5) L 12/26/16 05:21 Estimated GFR > 60 ml/min 12/26/16 05:21 BUN/Creatinine Ratio 27.50 % 12/26/16 05:21 Glucose 124 mg/dL (75-100) H 12/26/16 05:21 POC Glucose 191 (70-105) H 12/30/16 11:25 Calcium 9.5 mg/dL (8.4-10.2) 12/26/16 05:21 Total Bilirubin 0.3 mg/dL (0.1-1.2) 12/07/16 06:32 Direct Bilirubin 0.2 mg/dL (0-0.2) 11/30/16 04:18 Indirect Bilirubin 0.5 mg/dL 11/30/16 04:18 AST 12 units/L (5-40) 12/07/16 06:32 ALT 21 units/L (7-56) 12/07/16 06:32 Alkaline Phosphatase 83 units/L (35-129) 12/07/16 06:32 Total Protein 6.2 g/dL (6.3-8.2) L 12/07/16 06:32 Albumin 2.9 g/dL (3.9-5) L 12/07/16 06:32 Albumin/Globulin Ratio 0.9 % 12/07/16 06:32 Serotonin Release Assay See scanned report 11/30/16 Unknown Urine Color Yellow (Yellow) 11/30/16 Unknown Urine Turbidity Slightly-cloudy (Clear) 11/30/16 Unknown Urine pH 5.0 (5.0-7.0) 11/30/16 Unknown Ur Specific [place] 1.020 (1.003-1.030) 11/30/16 Unknown Urine Protein 30 mg/dl mg/dL (Negative) 11/30/16 Unknown Urine Glucose (UA) Neg mg/dL (Negative) 11/30/16 Unknown Urine Ketones Neg mg/dL (Negative) 11/30/16 Unknown Urine Blood Sm (Negative) 11/30/16 Unknown Urine Nitrite Neg (Negative) 11/30/16 Unknown Urine Bilirubin Neg (Negative) 11/30/16 Unknown Urine Urobilinogen 2.0 mg/dL (<2.0) 11/30/16 Unknown Ur Leukocyte Esterase Sm (Negative) 11/30/16 Unknown Urine WBC (Auto) 19.0 /HPF (0.0-6.0) H 11/30/16 Unknown Urine RBC (Auto) 5.0 /HPF (0.0-6.0) 11/30/16 Unknown U Epithel Cells (Auto) < 1.0 /HPF (0-13.0) 11/30/16 Unknown Uric Acid Crystals 1+ 11/30/16 Unknown Urine Mucus 1+ /HPF 11/30/16 Unknown Heparin-induced Plt Ab Negative (Negative) 11/30/16 Unknown UF Heparin High Dose 0 % Release (()) 11/30/16 Unknown MIKA UFH Low Dose 0.1 1 % Release (()) 11/30/16 Unknown MIKA UFH Low Dose 0.5 0 % Release (()) 11/30/16 Unknown Blood Type O POSITIVE 11/27/16 02:58 Antibody Screen Negative 11/27/16 02:58
[2016-12-30] MEDS: ROXICODONE PO PRN (15:01)
[2016-12-30] MEDS: NEURONTIN PO SCH (18:00)
[2016-12-31] MEDS: DILAUDID PO PRN ×3 (05:19→23:12)
[2016-12-31] MEDS: XANAX PO PRN ×2 (05:19→13:48)
[2016-12-31] MEDS: NOVOLOG SUB-Q SCH ×4 (08:00→23:13)
[2016-12-31] MEDS: CARAFATE PO SCH ×4 (08:15→23:13)
[2016-12-31] MEDS: DOLOPHINE PO SCH (10:00)
[2016-12-31] MEDS: PEPCID PO SCH ×2 (10:00→23:15)
[2016-12-31] MEDS: PROTONIX PO SCH ×2 (10:00→23:15)
[2016-12-31] MEDS: ELIQUIS PO SCH ×2 (10:01→23:14)
[2016-12-31] MEDS: NYSTOP TP SCH ×2 (10:02→23:14)
[2016-12-31 11:57] LABS: Bacteria,Urine 2+ /HPF (Negative); Bilirubin,Urine NEG (Negative); Blood,Urine SM (Negative); Ketones,Urine NEG (Negative); Leukocyte Esterase,Urine LG (Negative); Mucus,Urine 1+ /HPF; Nitrite,Urine NEG (Negative); Protein,Urine <15 mg/dL mg/dL (Negative)
[2016-12-31 11:58] LABS: WBC,Urine > 182.0 /HPF (0.0-6.0)
[2016-12-31] MEDS: DILAUDID IM PRN (13:48)
--- NOTE | 2016-12-31 14:09 | Progress Note ---
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 - Continue physical therapy (8) DVT prophylaxis - On therapeutic eliquis. New issues - swelling on the left thigh - U/S is ordered possible hemtoma/ chronic abscess - MRI ordered and patient is sent outside to have MRI done UTI - Patient started on Levaquin Disposition Plan: If MRI is negative, patient can be discharged to acute rehabilitation History Interval history: patient still have back pain. Patient complains burning on urination and foul smelling urine. UA suggestive of UTI. Hospitalist Physical - Physical exam Narrative exam: In moderate distress from pain. The patient is obese. Vital signs as documented. Head exam is unremarkable. No scleral icterus . Neck is without jugular venous distension, thyromegaly, or carotid bruits. Lungs are clear to auscultation. Cardiac exam reveals regular rate and Rhythm. First and second heart sounds normal. No murmurs, rubs or gallops. Abdominal exam reveals obese abdomen. Swelling on the left thigh, sore but no tenderness or flactulence. [employer] REPRESENTATIVE: Alert and oriented 3. - Constitutional Vitals: Temp Pulse Resp BP Pulse Ox 98.1 F 122 H 20 139/91 97 12/31/16 08:07 12/31/16 08:07 12/31/16 08:07 12/31/16 08:07 12/31/16 08:07 General appearance: Present: no acute distress, obese Results - Labs CBC & Chem 7: 12/26/16 05:21 12/26/16 05:21 Labs: Laboratory Last Values WBC 5.9 K/mm3 (4.5-11.0) 12/26/16 05:21 RBC 4.14 M/mm3 (3.65-5.03) 12/26/16 05:21 Hgb 10.7 gm/dl (11.8-15.2) L 12/26/16 05:21 Hct 33.4 % (35.5-45.6) L 12/26/16 05:21 MCV 81 fl (84-94) L 12/26/16 05:21 MCH 26 pg (28-32) L 12/26/16 05:21 MCHC 32 % (32-34) 12/26/16 05:21 RDW 16.6 % (13.2-15.2) H 12/26/16 05:21 Plt Count 278 K/mm3 (140-440) 12/26/16 05:21 Lymph % (Auto) 33.0 % (13.4-35.0) 12/26/16 05:21 [place] % (Auto) 13.5 % (0.0-7.3) H 12/26/16 05:21 Eos % (Auto) 6.9 % (0.0-4.3) H 12/26/16 05:21 Baso % (Auto) 0.9 % (0.0-1.8) 12/26/16 05:21 Lymph # 1.9 K/mm3 (1.2-5.4) 12/26/16 05:21 [place] # 0.8 K/mm3 (0.0-0.8) 12/26/16 05:21 Eos # 0.4 K/mm3 (0.0-0.4) 12/26/16 05:21 Baso # 0.1 K/mm3 (0.0-0.1) 12/26/16 05:21 Add Manual Diff Complete 11/27/16 17:00 Total Counted 100 11/27/16 17:00 Seg Neutrophils % 45.7 % (40.0-70.0) 12/26/16 05:21 Seg Neuts % (Manual) 80.0 % (40.0-70.0) H 11/27/16 17:00 Band Neutrophils % 0 % 11/27/16 17:00 Lymphocytes % (Manual) 9.0 % (13.4-35.0) L 11/27/16 17:00 Reactive Lymphs % (Man) 0 % 11/27/16 17:00 Monocytes % (Manual) 9.0 % (0.0-7.3) H 11/27/16 17:00 Eosinophils % (Manual) 0 % (0.0-4.3) 11/27/16 17:00 Basophils % (Manual) 0 % (0.0-1.8) 11/27/16 17:00 Metamyelocytes % 2.0 % 11/27/16 17:00 Myelocytes % 0 % 11/27/16 17:00 Promyelocytes % 0 % 11/27/16 17:00 Blast Cells % 0 % 11/27/16 17:00 Nucleated RBC % Not Reportable 11/27/16 17:00 Seg Neutrophils # 2.7 K/mm3 (1.8-7.7) 12/26/16 05:21 Seg Neutrophils # Man 7.7 K/mm3 (1.8-7.7) 11/27/16 17:00 Band Neutrophils # 0.0 K/mm3 11/27/16 17:00 Lymphocytes # (Manual) 0.9 K/mm3 (1.2-5.4) L 11/27/16 17:00 Abs React Lymphs (Man) 0.0 K/mm3 11/27/16 17:00 Monocytes # (Manual) 0.9 K/mm3 (0.0-0.8) H 11/27/16 17:00 Eosinophils # (Manual) 0.0 K/mm3 (0.0-0.4) 11/27/16 17:00 Basophils # (Manual) 0.0 K/mm3 (0.0-0.1) 11/27/16 17:00 Metamyelocytes # 0.2 K/mm3 11/27/16 17:00 Myelocytes # 0.0 K/mm3 11/27/16 17:00 Promyelocytes # 0.0 K/mm3 11/27/16 17:00 Blast Cells # 0.0 K/mm3 11/27/16 17:00 WBC Morphology Not Reportable 11/27/16 17:00 Hypersegmented Neuts Not Reportable 11/27/16 17:00 Hyposegmented Neuts Not Reportable 11/27/16 17:00 Hypogranular Neuts Not Reportable 11/27/16 17:00 Smudge Cells Not Reportable 11/27/16 17:00 Toxic Granulation Not Reportable 11/27/16 17:00 Toxic Vacuolation Not Reportable 11/27/16 17:00 Dohle Bodies Not Reportable 11/27/16 17:00 Pelger-Huet Anomaly Not Reportable 11/27/16 17:00 Mati Rods Not Reportable 11/27/16 17:00 Platelet Estimate Consistent w auto 11/27/16 17:00 Clumped Platelets Not Reportable 11/27/16 17:00 Plt Clumps, EDTA Not Reportable 11/27/16 17:00 Large Platelets Not Reportable 11/27/16 17:00 Giant Platelets Not Reportable 11/27/16 17:00 Platelet Satelliting Not Reportable 11/27/16 17:00 Plt Morphology Comment Not Reportable 11/27/16 17:00 RBC Morphology Not Reportable 11/27/16 17:00 Dimorphic RBCs Not Reportable 11/27/16 17:00 Polychromasia Not Reportable 11/27/16 17:00 Hypochromasia Not Reportable 11/27/16 17:00 Poikilocytosis Not Reportable 11/27/16 17:00 Anisocytosis 1+ 11/27/16 17:00 Microcytosis Not Reportable 11/27/16 17:00 Macrocytosis Not Reportable 11/27/16 17:00 Spherocytes Not Reportable 11/27/16 17:00 Pappenheimer Bodies Not Reportable 11/27/16 17:00 Sickle Cells Not Reportable 11/27/16 17:00 Target Cells Not Reportable 11/27/16 17:00 Tear Drop Cells Not Reportable 11/27/16 17:00 Ovalocytes Not Reportable 11/27/16 17:00 Helmet Cells Not Reportable 11/27/16 17:00 Serrato-[place] Bodies Not Reportable 11/27/16 17:00 [place] Rings Not Reportable 11/27/16 17:00 [place] Cells Not Reportable 11/27/16 17:00 Bite Cells Not Reportable 11/27/16 17:00 Crenated Cell Not Reportable 11/27/16 17:00 Elliptocytes Not Reportable 11/27/16 17:00 Acanthocytes (Spur) Not Reportable 11/27/16 17:00 Rouleaux Not Reportable 11/27/16 17:00 Hemoglobin C Crystals Not Reportable 11/27/16 17:00 Schistocytes Not Reportable 11/27/16 17:00 Malaria parasites Not Reportable 11/27/16 17:00 Michael Bodies Not Reportable 11/27/16 17:00 Hem Pathologist Commnt No 11/27/16 17:00 PT 23.9 Sec. (12.2-14.9) H 11/30/16 17:15 INR 2.13 (0.87-1.13) H 11/30/16 17:15 APTT 62.0 Sec. (24.2-36.6) H* 12/04/16 Unknown Fibrinogen 474 mg/dl (211-480) 11/27/16 23:00 Heparin Anti-Xa Level 0.14 U.I./ml (0.3-0.7) L 11/30/16 Unknown Heparin Anti-Xa, Unfract Negative (Negative) 11/30/16 Unknown Sodium 142 mmol/L (137-145) 12/26/16 05:21 Potassium 3.8 mmol/L (3.6-5.0) 12/26/16 05:21 Chloride 104.0 mmol/L (98-107) 12/26/16 05:21 Carbon Dioxide 23 mmol/L (22-30) 12/26/16 05:21 Anion Gap 19 mmol/L 12/26/16 05:21 BUN 11 mg/dL (9-20) 12/26/16 05:21 Creatinine 0.4 mg/dL (0.8-1.5) L 12/26/16 05:21 Estimated GFR > 60 ml/min 12/26/16 05:21 BUN/Creatinine Ratio 27.50 % 12/26/16 05:21 Glucose 124 mg/dL (75-100) H 12/26/16 05:21 POC Glucose 165 (70-105) H 12/31/16 11:34 Calcium 9.5 mg/dL (8.4-10.2) 12/26/16 05:21 Total Bilirubin 0.3 mg/dL (0.1-1.2) 12/07/16 06:32 Direct Bilirubin 0.2 mg/dL (0-0.2) 11/30/16 04:18 Indirect Bilirubin 0.5 mg/dL 11/30/16 04:18 AST 12 units/L (5-40) 12/07/16 06:32 ALT 21 units/L (7-56) 12/07/16 06:32 Alkaline Phosphatase 83 units/L (35-129) 12/07/16 06:32 Total Protein 6.2 g/dL (6.3-8.2) L 12/07/16 06:32 Albumin 2.9 g/dL (3.9-5) L 12/07/16 06:32 Albumin/Globulin Ratio 0.9 % 12/07/16 06:32 Serotonin Release Assay See scanned report 11/30/16 Unknown Urine Color Yellow (Yellow) 12/31/16 11:30 Urine Turbidity Cloudy (Clear) 12/31/16 11:30 Urine pH 5.0 (5.0-7.0) 12/31/16 11:30 Ur Specific [place] 1.017 (1.003-1.030) 12/31/16 11:30 Urine Protein <15 mg/dl mg/dL (Negative) 12/31/16 11:30 Urine Glucose (UA) Neg mg/dL (Negative) 12/31/16 11:30 Urine Ketones Neg mg/dL (Negative) 12/31/16 11:30 Urine Blood Sm (Negative) 12/31/16 11:30 Urine Nitrite Neg (Negative) 12/31/16 11:30 Urine Bilirubin Neg (Negative) 12/31/16 11:30 Urine Urobilinogen 2.0 mg/dL (<2.0) 12/31/16 11:30 Ur Leukocyte Esterase Lg (Negative) 12/31/16 11:30 Urine WBC (Auto) > 182.0 /HPF (0.0-6.0) H 12/31/16 11:30 Urine RBC (Auto) 3.0 /HPF (0.0-6.0) 12/31/16 11:30 U Epithel Cells (Auto) < 1.0 /HPF (0-13.0) 11/30/16 Unknown Urine Bacteria (Auto) 2+ /HPF (Negative) 12/31/16 11:30 Uric Acid Crystals 1+ 11/30/16 Unknown Amorphous Crystals Few 12/31/16 11:30 Urine Mucus 1+ /HPF 12/31/16 11:30 Heparin-induced Plt Ab Negative (Negative) 11/30/16 Unknown UF Heparin High Dose 0 % Release (()) 11/30/16 Unknown MIKA UFH Low Dose 0.1 1 % Release (()) 11/30/16 Unknown MIKA UFH Low Dose 0.5 0 % Release (()) 11/30/16 Unknown Blood Type O POSITIVE 11/27/16 02:58 Antibody Screen Negative 11/27/16 02:58
[2016-12-31] MEDS: LEVAQUIN PO SCH (17:00)
[2016-12-31] MEDS: NEURONTIN PO SCH (18:30)
[2017-01-01] MEDS: XANAX PO PRN ×3 (02:40→18:54)
[2017-01-01] MEDS: DILAUDID PO PRN ×3 (02:40→23:29)
--- NOTE | 2017-01-01 09:12 | Magnetic Resonance Report ---
MR LOWER EXTREMITY NON-JOINT LEFT WITHOUT CONTRAST: HISTORY: Left thigh swelling and pain, mass. TECHNIQUE: Multisequence, multiplanar MRI without contrast. FINDINGS: MR imaging was performed from the left hip to the left knee and compared to the ultrasound performed 12/29/16. MRI demonstrates slightly complex fluid collection within the quadriceps muscle measuring 24.4 x 6.10 x 7.3 cm. There appears to be a fluid level or debris level within this collection. This has the appearance of the hematocrit level. This most likely represents an intramuscular hematoma of the quadriceps muscle. There is no obvious internal gas, septation, soft tissue mass component or calcifications. Please note that no IV contrast was administered. There is mild nonspecific subcutaneous edema in the lateral left thigh. The femur is intact and demonstrates normal bone marrow signal. No acute osseous injury is appreciated. There is mild edema in the left obturator muscles, otherwise, the muscular structures of the left thigh are unremarkable. IMPRESSION: Slightly complex cystic collection within the left quadriceps muscle most consistent with an intramuscular hematoma. If fever or leukocytosis is present, an infected hematoma or abscess could be considered but this is thought less likely.
[2017-01-01] MEDS: NOVOLOG SUB-Q SCH ×4 (09:22→23:31)
[2017-01-01] MEDS: PEPCID PO SCH ×2 (09:23→23:29)
[2017-01-01] MEDS: CARAFATE PO SCH ×4 (09:23→23:28)
[2017-01-01] MEDS: PROTONIX PO SCH ×2 (09:23→23:29)
[2017-01-01] MEDS: LEVAQUIN PO SCH (09:23)
[2017-01-01] MEDS: ELIQUIS PO SCH ×2 (09:24→23:29)
[2017-01-01] MEDS: NYSTOP TP SCH ×2 (09:24→23:31)
[2017-01-01] MEDS: DOLOPHINE PO SCH (09:31)
[2017-01-01] MEDS: NEURONTIN PO SCH (17:30)
[2017-01-01] MEDS: ROXICODONE PO PRN (18:54)
[2017-01-02] MEDS: DOLOPHINE PO SCH (14:13)
[2017-01-02] MEDS: ELIQUIS PO SCH (14:13)
[2017-01-02] MEDS: CARAFATE PO SCH ×2 (14:13→16:14)
[2017-01-02] MEDS: NOVOLOG SUB-Q SCH ×2 (14:13→17:00)
[2017-01-02] MEDS: PEPCID PO SCH (14:14)
[2017-01-02] MEDS: LEVAQUIN PO SCH (14:14)
[2017-01-02] MEDS: NYSTOP TP SCH (14:14)
[2017-01-02] MEDS: PROTONIX PO SCH (14:14)
[2017-01-02] MEDS: DILAUDID PO PRN (14:30)
--- NOTE | 2017-01-02 15:05 | Progress Note ---
Assessment and Plan - Patient Problems (1) Pulmonary embolism Current Visit: Yes Status: Resolved Qualifiers: Pulmonary embolism type: saddle Chronicity: acute Acute cor pulmonale presence: with acute cor pulmonale Qualified Code(s): I26.02 - Saddle embolus of pulmonary artery with acute cor pulmonale Plan to address problem: continue therapeutic anticoagulation (2) Acute respiratory failure with hypoxia Current Visit: Yes Status: Resolved (3) Morbid (severe) obesity due to excess calories Current Visit: Yes Status: Chronic Plan to address problem: Pt counseled regarding balanced diet, increased physical activity (4) LIVAN on CPAP Current Visit: Yes Status: Acute Plan to address problem: continue NIPPV QHS, (5) Diabetes Current Visit: Yes Status: Chronic Qualifiers: Diabetes mellitus type: D Diabetes mellitus complication status: D Diabetes mellitus complication detail: D Diabetic retinopathy severity: D Proliferative retinopathy type: P Diabetes mellitus macular edema: D Diabetes mellitus intermediate insulin use: D Laterality: L Chronic kidney disease stage: C Plan to address problem: ADA diet, insulin, accu check, supportive care. 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 NO new reported nursing events. Pt denies any new am complaints. Pt denies fever, chills, CP, Palpitaitons, hemoptysis, discussed care plan with patient and . Case management consulted for placement Hospitalist Physical - Constitutional Vitals: Temp Pulse Resp BP Pulse Ox 98.0 F 83 18 130/72 95 01/01/17 23:15 01/01/17 23:15 01/01/17 23:29 01/01/17 23:15 01/01/17 23:15 General appearance: Present: no acute distress, obese - EENT Eyes: Present: PERRL, EOM intact ENT: hearing intact - Neck Neck: Present: supple - Respiratory Respiratory: bilateral: diminished - Cardiovascular Rhythm: regular Heart Sounds: Present: S1 & S2 - Extremities Extremities: no ischemia Peripheral Pulses: within normal limits - Abdominal General gastrointestinal: soft, non-tender, non-distended - Integumentary Integumentary: Present: clear, warm, dry - Psychiatric Psychiatric: appropriate mood/affect, cooperative - Neurologic Neurologic: CNII-XII intact, no gait normal Results - Labs CBC & Chem 7: 12/26/16 05:21 12/26/16 05:21 Labs: Laboratory Last Values WBC 5.9 K/mm3 (4.5-11.0) 12/26/16 05:21 RBC 4.14 M/mm3 (3.65-5.03) 12/26/16 05:21 Hgb 10.7 gm/dl (11.8-15.2) L 12/26/16 05:21 Hct 33.4 % (35.5-45.6) L 12/26/16 05:21 MCV 81 fl (84-94) L 12/26/16 05:21 MCH 26 pg (28-32) L 12/26/16 05:21 MCHC 32 % (32-34) 12/26/16 05:21 RDW 16.6 % (13.2-15.2) H 12/26/16 05:21 Plt Count 278 K/mm3 (140-440) 12/26/16 05:21 Lymph % (Auto) 33.0 % (13.4-35.0) 12/26/16 05:21 [place] % (Auto) 13.5 % (0.0-7.3) H 12/26/16 05:21 Eos % (Auto) 6.9 % (0.0-4.3) H 12/26/16 05:21 Baso % (Auto) 0.9 % (0.0-1.8) 12/26/16 05:21 Lymph # 1.9 K/mm3 (1.2-5.4) 12/26/16 05:21 [place] # 0.8 K/mm3 (0.0-0.8) 12/26/16 05:21 Eos # 0.4 K/mm3 (0.0-0.4) 12/26/16 05:21 Baso # 0.1 K/mm3 (0.0-0.1) 12/26/16 05:21 Add Manual Diff Complete 11/27/16 17:00 Total Counted 100 12/27/16 17:00 Seg Neutrophils % 45.7 % (40.0-70.0) 12/26/16 05:21 Seg Neuts % (Manual) 80.0 % (40.0-70.0) H 11/27/16 17:00 Band Neutrophils % 0 % 11/27/16 17:00 Lymphocytes % (Manual) 9.0 % (13.4-35.0) L 11/27/16 17:00 Reactive Lymphs % (Man) 0 % 11/27/16 17:00 Monocytes % (Manual) 9.0 % (0.0-7.3) H 11/27/16 17:00 Eosinophils % (Manual) 0 % (0.0-4.3) 11/27/16 17:00 Basophils % (Manual) 0 % (0.0-1.8) 11/27/16 17:00 Metamyelocytes % 2.0 % 11/27/16 17:00 Myelocytes % 0 % 11/27/16 17:00 Promyelocytes % 0 % 11/27/16 17:00 Blast Cells % 0 % 11/27/16 17:00 Nucleated RBC % Not Reportable 11/27/16 17:00 Seg Neutrophils # 2.7 K/mm3 (1.8-7.7) 12/26/16 05:21 Seg Neutrophils # Man 7.7 K/mm3 (1.8-7.7) 11/27/16 17:00 Band Neutrophils # 0.0 K/mm3 11/27/16 17:00 Lymphocytes # (Manual) 0.9 K/mm3 (1.2-5.4) L 11/27/16 17:00 Abs React Lymphs (Man) 0.0 K/mm3 11/27/16 17:00 Monocytes # (Manual) 0.9 K/mm3 (0.0-0.8) H 11/27/16 17:00 Eosinophils # (Manual) 0.0 K/mm3 (0.0-0.4) 11/27/16 17:00 Basophils # (Manual) 0.0 K/mm3 (0.0-0.1) 11/27/16 17:00 Metamyelocytes # 0.2 K/mm3 11/27/16 17:00 Myelocytes # 0.0 K/mm3 11/27/16 17:00 Promyelocytes # 0.0 K/mm3 11/27/16 17:00 Blast Cells # 0.0 K/mm3 11/27/16 17:00 WBC Morphology Not Reportable 11/27/16 17:00 Hypersegmented Neuts Not Reportable 11/27/16 17:00 Hyposegmented Neuts Not Reportable 11/27/16 17:00 Hypogranular Neuts Not Reportable 11/27/16 17:00 Smudge Cells Not Reportable 11/27/16 17:00 Toxic Granulation Not Reportable 11/27/16 17:00 Toxic Vacuolation Not Reportable 11/27/16 17:00 Dohle Bodies Not Reportable 11/27/16 17:00 Pelger-Huet Anomaly Not Reportable 11/27/16 17:00 Mati Rods Not Reportable 11/27/16 17:00 Platelet Estimate Consistent w auto 11/27/16 17:00 Clumped Platelets Not Reportable 11/27/16 17:00 Plt Clumps, EDTA Not Reportable 11/27/16 17:00 Large Platelets Not Reportable 11/27/16 17:00 Giant Platelets Not Reportable 11/27/16 17:00 Platelet Satelliting Not Reportable 11/27/16 17:00 Plt Morphology Comment Not Reportable 11/27/16 17:00 RBC Morphology Not Reportable 11/27/16 17:00 Dimorphic RBCs Not Reportable 11/27/16 17:00 Polychromasia Not Reportable 11/27/16 17:00 Hypochromasia Not Reportable 11/27/16 17:00 Poikilocytosis Not Reportable 11/27/16 17:00 Anisocytosis 1+ 11/27/16 17:00 Microcytosis Not Reportable 11/27/16 17:00 Macrocytosis Not Reportable 11/27/16 17:00 Spherocytes Not Reportable 11/27/16 17:00 Pappenheimer Bodies Not Reportable 11/27/16 17:00 Sickle Cells Not Reportable 11/27/16 17:00 Target Cells Not Reportable 11/27/16 17:00 Tear Drop Cells Not Reportable 11/27/16 17:00 Ovalocytes Not Reportable 11/27/16 17:00 Helmet Cells Not Reportable 11/27/16 17:00 Serrato-[place] Bodies Not Reportable 11/27/16 17:00 [place] Rings Not Reportable 11/27/16 17:00 [place] Cells Not Reportable 11/27/16 17:00 Bite Cells Not Reportable 11/27/16 17:00 Crenated Cell Not Reportable 11/27/16 17:00 Elliptocytes Not Reportable 11/27/16 17:00 Acanthocytes (Spur) Not Reportable 11/27/16 17:00 Rouleaux Not Reportable 11/27/16 17:00 Hemoglobin C Crystals Not Reportable 11/27/16 17:00 Schistocytes Not Reportable 11/27/16 17:00 Malaria parasites Not Reportable 11/27/16 17:00 Michael Bodies Not Reportable 11/27/16 17:00 Hem Pathologist Commnt No 11/27/16 17:00 PT 23.9 Sec. (12.2-14.9) H 11/30/16 17:15 INR 2.13 (0.87-1.13) H 11/30/16 17:15 APTT 62.0 Sec. (24.2-36.6) H* 12/04/16 Unknown Fibrinogen 474 mg/dl (211-480) 11/27/16 23:00 Heparin Anti-Xa Level 0.14 U.I./ml (0.3-0.7) L 11/30/16 Unknown Heparin Anti-Xa, Unfract Negative (Negative) 11/30/16 Unknown Sodium 142 mmol/L (137-145) 12/26/16 05:21 Potassium 3.8 mmol/L (3.6-5.0) 12/26/16 05:21 Chloride 104.0 mmol/L (98-107) 12/26/16 05:21 Carbon Dioxide 23 mmol/L (22-30) 12/26/16 05:21 Anion Gap 19 mmol/L 12/26/16 05:21 BUN 11 mg/dL (9-20) 12/26/16 05:21 Creatinine 0.4 mg/dL (0.8-1.5) L 12/26/16 05:21 Estimated GFR > 60 ml/min 12/26/16 05:21 BUN/Creatinine Ratio 27.50 % 12/26/16 05:21 Glucose 124 mg/dL (75-100) H 12/26/16 05:21 POC Glucose 149 (70-105) H 01/02/17 12:01 Calcium 9.5 mg/dL (8.4-10.2) 12/26/16 05:21 Total Bilirubin 0.3 mg/dL (0.1-1.2) 12/07/16 06:32 Direct Bilirubin 0.2 mg/dL (0-0.2) 11/30/16 04:18 Indirect Bilirubin 0.5 mg/dL 11/30/16 04:18 AST 12 units/L (5-40) 12/07/16 06:32 ALT 21 units/L (7-56) 12/07/16 06:32 Alkaline Phosphatase 83 units/L (35-129) 12/07/16 06:32 Total Protein 6.2 g/dL (6.3-8.2) L 12/07/16 06:32 Albumin 2.9 g/dL (3.9-5) L 12/07/16 06:32 Albumin/Globulin Ratio 0.9 % 12/07/16 06:32 Serotonin Release Assay See scanned report 11/30/16 Unknown Urine Color Yellow (Yellow) 12/31/16 11:30 Urine Turbidity Cloudy (Clear) 12/31/16 11:30 Urine pH 5.0 (5.0-7.0) 12/31/16 11:30 Ur Specific [place] 1.017 (1.003-1.030) 12/31/16 11:30 Urine Protein <15 mg/dl mg/dL (Negative) 12/31/16 11:30 Urine Glucose (UA) Neg mg/dL (Negative) 12/31/16 11:30 Urine Ketones Neg mg/dL (Negative) 12/31/16 11:30 Urine Blood Sm (Negative) 12/31/16 11:30 Urine Nitrite Neg (Negative) 12/31/16 11:30 Urine Bilirubin Neg (Negative) 12/31/16 11:30 Urine Urobilinogen 2.0 mg/dL (<2.0) 12/31/16 11:30 Ur Leukocyte Esterase Lg (Negative) 12/31/16 11:30 Urine WBC (Auto) > 182.0 /HPF (0.0-6.0) H 12/31/16 11:30 Urine RBC (Auto) 3.0 /HPF (0.0-6.0) 12/31/16 11:30 U Epithel Cells (Auto) < 1.0 /HPF (0-13.0) 11/30/16 Unknown Urine Bacteria (Auto) 2+ /HPF (Negative) 12/31/16 11:30 Uric Acid Crystals 1+ 11/30/16 Unknown Amorphous Crystals Few 12/31/16 11:30 Urine Mucus 1+ /HPF 12/31/16 11:30 Heparin-induced Plt Ab Negative (Negative) 11/30/16 Unknown UF Heparin High Dose 0 % Release (()) 11/30/16 Unknown MIKA UFH Low Dose 0.1 1 % Release (()) 11/30/16 Unknown MIKA UFH Low Dose 0.5 0 % Release (()) 11/30/16 Unknown Blood Type O POSITIVE 11/27/16 02:58 Antibody Screen Negative 11/27/16 02:58
[2017-01-02] MEDS: NEURONTIN PO SCH (17:30)
[2017-01-02] MEDS: ROXICODONE PO PRN (19:00)
[2017-01-02] MEDS: XANAX PO PRN (19:00)
[2017-01-03] MEDS: CARAFATE PO SCH ×5 (00:13→22:28)
[2017-01-03] MEDS: ELIQUIS PO SCH ×3 (00:13→22:28)
[2017-01-03] MEDS: NYSTOP TP SCH ×3 (00:14→22:33)
[2017-01-03] MEDS: PEPCID PO SCH ×3 (00:15→22:28)
[2017-01-03] MEDS: PROTONIX PO SCH ×3 (00:15→22:28)
[2017-01-03] MEDS: NOVOLOG SUB-Q SCH ×5 (00:15→22:10)
[2017-01-03] MEDS: ROXICODONE PO PRN ×3 (02:32→22:32)
[2017-01-03] MEDS: DOLOPHINE PO SCH (11:34)
[2017-01-03] MEDS: XANAX PO PRN ×2 (11:34→18:34)
[2017-01-03] MEDS: LEVAQUIN PO SCH (11:35)
[2017-01-03] MEDS: DILAUDID IM PRN (13:40)
[2017-01-03] MEDS: NEURONTIN PO SCH (18:34)
--- NOTE | 2017-01-03 23:21 | Progress Note ---
Assessment and Plan - Patient Problems (1) Pulmonary embolism Current Visit: Yes Status: Resolved Qualifiers: Pulmonary embolism type: saddle Chronicity: acute Acute cor pulmonale presence: with acute cor pulmonale Qualified Code(s): I26.02 - Saddle embolus of pulmonary artery with acute cor pulmonale Plan to address problem: continue therapeutic anticoagulation (2) Acute respiratory failure with hypoxia Current Visit: Yes Status: Resolved (3) Morbid (severe) obesity due to excess calories Current Visit: Yes Status: Chronic Plan to address problem: Pt counseled regarding balanced diet, increased physical activity (4) LIVAN on CPAP Current Visit: Yes Status: Acute Plan to address problem: continue NIPPV QHS, (5) Diabetes Current Visit: Yes Status: Chronic Qualifiers: Diabetes mellitus type: D Diabetes mellitus complication status: D Diabetes mellitus complication detail: D Diabetic retinopathy severity: D Proliferative retinopathy type: P Diabetes mellitus macular edema: D Diabetes mellitus senior living insulin use: D Laterality: L Chronic kidney disease stage: C Plan to address problem: ADA diet, insulin, accu check, supportive care. 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 NO new reported nursing events. Pt denies any new am complaints. Pt denies fever, chills, CP, Palpitaitons, hemoptysis, discussed care plan with patient and . Case management consulted for placement, Pt medically optimized for discharge. Hospitalist Physical - Constitutional Vitals: Temp Pulse Resp BP Pulse Ox 98.7 F 98 H 20 111/74 99 01/03/17 16:03 01/03/17 16:03 01/03/17 16:03 01/03/17 16:03 01/03/17 08:50 General appearance: Present: no acute distress, obese - EENT Eyes: Present: PERRL, EOM intact ENT: hearing intact - Neck Neck: Present: supple - Respiratory Respiratory: bilateral: diminished - Cardiovascular Rhythm: regular Heart Sounds: Present: S1 & S2 - Extremities Extremities: no ischemia Peripheral Pulses: within normal limits - Abdominal General gastrointestinal: soft, non-tender, non-distended, no hepatomegaly, no splenomegaly - Integumentary Integumentary: Present: clear, dry - Psychiatric Psychiatric: appropriate mood/affect, cooperative - Neurologic Neurologic: CNII-XII intact, moves all extremities, no gait normal Results - Labs CBC & Chem 7: 12/26/16 05:21 12/26/16 05:21 Labs: Laboratory Last Values WBC 5.9 K/mm3 (4.5-11.0) 12/26/16 05:21 RBC 4.14 M/mm3 (3.65-5.03) 12/26/16 05:21 Hgb 10.7 gm/dl (11.8-15.2) L 12/26/16 05:21 Hct 33.4 % (35.5-45.6) L 12/26/16 05:21 MCV 81 fl (84-94) L 12/26/16 05:21 MCH 26 pg (28-32) L 12/26/16 05:21 MCHC 32 % (32-34) 12/26/16 05:21 RDW 16.6 % (13.2-15.2) H 12/26/16 05:21 Plt Count 278 K/mm3 (140-440) 12/26/16 05:21 Lymph % (Auto) 33.0 % (13.4-35.0) 12/26/16 05:21 [place] % (Auto) 13.5 % (0.0-7.3) H 12/26/16 05:21 Eos % (Auto) 6.9 % (0.0-4.3) H 12/26/16 05:21 Baso % (Auto) 0.9 % (0.0-1.8) 12/26/16 05:21 Lymph # 1.9 K/mm3 (1.2-5.4) 12/26/16 05:21 [place] # 0.8 K/mm3 (0.0-0.8) 12/26/16 05:21 Eos # 0.4 K/mm3 (0.0-0.4) 12/26/16 05:21 Baso # 0.1 K/mm3 (0.0-0.1) 12/26/16 05:21 Add Manual Diff Complete 11/27/16 17:00 Total Counted 100 11/27/16 17:00 Seg Neutrophils % 45.7 % (40.0-70.0) 12/26/16 05:21 Seg Neuts % (Manual) 80.0 % (40.0-70.0) H 11/27/16 17:00 Band Neutrophils % 0 % 11/27/16 17:00 Lymphocytes % (Manual) 9.0 % (13.4-35.0) L 11/27/16 17:00 Reactive Lymphs % (Man) 0 % 11/27/16 17:00 Monocytes % (Manual) 9.0 % (0.0-7.3) H 11/27/16 17:00 Eosinophils % (Manual) 0 % (0.0-4.3) 11/27/16 17:00 Basophils % (Manual) 0 % (0.0-1.8) 11/27/16 17:00 Metamyelocytes % 2.0 % 11/27/16 17:00 Myelocytes % 0 % 11/27/16 17:00 Promyelocytes % 0 % 11/27/16 17:00 Blast Cells % 0 % 11/27/16 17:00 Nucleated RBC % Not Reportable 11/27/16 17:00 Seg Neutrophils # 2.7 K/mm3 (1.8-7.7) 12/26/16 05:21 Seg Neutrophils # Man 7.7 K/mm3 (1.8-7.7) 11/27/16 17:00 Band Neutrophils # 0.0 K/mm3 11/27/16 17:00 Lymphocytes # (Manual) 0.9 K/mm3 (1.2-5.4) L 11/27/16 17:00 Abs React Lymphs (Man) 0.0 K/mm3 11/27/16 17:00 Monocytes # (Manual) 0.9 K/mm3 (0.0-0.8) H 11/27/16 17:00 Eosinophils # (Manual) 0.0 K/mm3 (0.0-0.4) 11/27/16 17:00 Basophils # (Manual) 0.0 K/mm3 (0.0-0.1) 11/27/16 17:00 Metamyelocytes # 0.2 K/mm3 11/27/16 17:00 Myelocytes # 0.0 K/mm3 11/27/16 17:00 Promyelocytes # 0.0 K/mm3 11/27/16 17:00 Blast Cells # 0.0 K/mm3 11/27/16 17:00 WBC Morphology Not Reportable 11/27/16 17:00 Hypersegmented Neuts Not Reportable 11/27/16 17:00 Hyposegmented Neuts Not Reportable 11/27/16 17:00 Hypogranular Neuts Not Reportable 11/27/16 17:00 Smudge Cells Not Reportable 11/27/16 17:00 Toxic Granulation Not Reportable 11/27/16 17:00 Toxic Vacuolation Not Reportable 11/27/16 17:00 Dohle Bodies Not Reportable 11/27/16 17:00 Pelger-Huet Anomaly Not Reportable 11/27/16 17:00 Mati Rods Not Reportable 11/27/16 17:00 Platelet Estimate Consistent w auto 11/27/16 17:00 Clumped Platelets Not Reportable 11/27/16 17:00 Plt Clumps, EDTA Not Reportable 11/27/16 17:00 Large Platelets Not Reportable 11/27/16 17:00 Giant Platelets Not Reportable 11/27/16 17:00 Platelet Satelliting Not Reportable 11/27/16 17:00 Plt Morphology Comment Not Reportable 11/27/16 17:00 RBC Morphology Not Reportable 11/27/16 17:00 Dimorphic RBCs Not Reportable 11/27/16 17:00 Polychromasia Not Reportable 11/27/16 17:00 Hypochromasia Not Reportable 11/27/16 17:00 Poikilocytosis Not Reportable 11/27/16 17:00 Anisocytosis 1+ 11/27/16 17:00 Microcytosis Not Reportable 11/27/16 17:00 Macrocytosis Not Reportable 11/27/16 17:00 Spherocytes Not Reportable 11/27/16 17:00 Pappenheimer Bodies Not Reportable 11/27/16 17:00 Sickle Cells Not Reportable 11/27/16 17:00 Target Cells Not Reportable 11/27/16 17:00 Tear Drop Cells Not Reportable 11/27/16 17:00 Ovalocytes Not Reportable 11/27/16 17:00 Helmet Cells Not Reportable 11/27/16 17:00 [place] Bodies Not Reportable 11/27/16 17:00 [place] Rings Not Reportable 11/27/16 17:00 [place] Cells Not Reportable 11/27/16 17:00 Bite Cells Not Reportable 11/27/16 17:00 Crenated Cell Not Reportable 11/27/16 17:00 Elliptocytes Not Reportable 11/27/16 17:00 Acanthocytes (Spur) Not Reportable 11/27/16 17:00 Rouleaux Not Reportable 11/27/16 17:00 Hemoglobin C Crystals Not Reportable 11/27/16 17:00 Schistocytes Not Reportable 11/27/16 17:00 Malaria parasites Not Reportable 11/27/16 17:00 Michael Bodies Not Reportable 11/27/16 17:00 Hem Pathologist Commnt No 11/27/16 17:00 PT 23.9 Sec. (12.2-14.9) H 11/30/16 17:15 INR 2.13 (0.87-1.13) H 11/30/16 17:15 APTT 62.0 Sec. (24.2-36.6) H* 12/04/16 Unknown Fibrinogen 474 mg/dl (211-480) 11/27/16 23:00 Heparin Anti-Xa Level 0.14 U.I./ml (0.3-0.7) L 11/30/16 Unknown Heparin Anti-Xa, Unfract Negative (Negative) 11/30/16 Unknown Sodium 142 mmol/L (137-145) 12/26/16 05:21 Potassium 3.8 mmol/L (3.6-5.0) 12/26/16 05:21 Chloride 104.0 mmol/L (98-107) 12/26/16 05:21 Carbon Dioxide 23 mmol/L (22-30) 12/26/16 05:21 Anion Gap 19 mmol/L 12/26/16 05:21 BUN 11 mg/dL (9-20) 12/26/16 05:21 Creatinine 0.4 mg/dL (0.8-1.5) L 12/26/16 05:21 Estimated GFR > 60 ml/min 12/26/16 05:21 BUN/Creatinine Ratio 27.50 % 12/26/16 05:21 Glucose 124 mg/dL (75-100) H 12/26/16 05:21 POC Glucose 141 (70-105) H 01/03/17 22:01 Calcium 9.5 mg/dL (8.4-10.2) 12/26/16 05:21 Total Bilirubin 0.3 mg/dL (0.1-1.2) 12/07/16 06:32 Direct Bilirubin 0.2 mg/dL (0-0.2) 11/30/16 04:18 Indirect Bilirubin 0.5 mg/dL 11/30/16 04:18 AST 12 units/L (5-40) 12/07/16 06:32 ALT 21 units/L (7-56) 12/07/16 06:32 Alkaline Phosphatase 83 units/L (35-129) 12/07/16 06:32 Total Protein 6.2 g/dL (6.3-8.2) L 12/07/16 06:32 Albumin 2.9 g/dL (3.9-5) L 12/07/16 06:32 Albumin/Globulin Ratio 0.9 % 12/07/16 06:32 Serotonin Release Assay See scanned report 11/30/16 Unknown Urine Color Yellow (Yellow) 12/31/16 11:30 Urine Turbidity Cloudy (Clear) 12/31/16 11:30 Urine pH 5.0 (5.0-7.0) 12/31/16 11:30 Ur Specific [place] 1.017 (1.003-1.030) 12/31/16 11:30 Urine Protein <15 mg/dl mg/dL (Negative) 12/31/16 11:30 Urine Glucose (UA) Neg mg/dL (Negative) 12/31/16 11:30 Urine Ketones Neg mg/dL (Negative) 12/31/16 11:30 Urine Blood Sm (Negative) 12/31/16 11:30 Urine Nitrite Neg (Negative) 12/31/16 11:30 Urine Bilirubin Neg (Negative) 12/31/16 11:30 Urine Urobilinogen 2.0 mg/dL (<2.0) 12/31/16 11:30 Ur Leukocyte Esterase Lg (Negative) 12/31/16 11:30 Urine WBC (Auto) > 182.0 /HPF (0.0-6.0) H 12/31/16 11:30 Urine RBC (Auto) 3.0 /HPF (0.0-6.0) 12/31/16 11:30 U Epithel Cells (Auto) < 1.0 /HPF (0-13.0) 11/30/16 Unknown Urine Bacteria (Auto) 2+ /HPF (Negative) 12/31/16 11:30 Uric Acid Crystals 1+ 11/30/16 Unknown Amorphous Crystals Few 12/31/16 11:30 Urine Mucus 1+ /HPF 12/31/16 11:30 Heparin-induced Plt Ab Negative (Negative) 11/30/16 Unknown UF Heparin High Dose 0 % Release (()) 11/30/16 Unknown MIKA UFH Low Dose 0.1 1 % Release (()) 11/30/16 Unknown MIKA UFH Low Dose 0.5 0 % Release (()) 11/30/16 Unknown Blood Type O POSITIVE 11/27/16 02:58 Antibody Screen Negative 11/27/16 02:58
[2017-01-04] MEDS: NOVOLOG SUB-Q SCH ×4 (08:04→23:18)
[2017-01-04] MEDS: CARAFATE PO SCH ×4 (08:36→22:56)
[2017-01-04] MEDS: DOLOPHINE PO SCH (11:17)
[2017-01-04] MEDS: XANAX PO PRN ×2 (11:17→18:22)
[2017-01-04] MEDS: PROTONIX PO SCH ×2 (11:18→22:56)
[2017-01-04] MEDS: ELIQUIS PO SCH ×2 (11:18→22:56)
[2017-01-04] MEDS: PEPCID PO SCH ×2 (11:19→22:56)
[2017-01-04] MEDS: NYSTOP TP SCH ×2 (11:19→23:21)
[2017-01-04] MEDS: LEVAQUIN PO SCH (11:19)
[2017-01-04] MEDS: DILAUDID IM PRN (12:42)
[2017-01-04] MEDS: NEURONTIN PO SCH (17:20)
[2017-01-04] MEDS: ROXICODONE PO PRN (18:22)
--- NOTE | 2017-01-04 19:31 | Progress Note ---
Assessment and Plan - Patient Problems (1) Pulmonary embolism Current Visit: Yes Status: Resolved Qualifiers: Pulmonary embolism type: saddle Chronicity: acute Acute cor pulmonale presence: with acute cor pulmonale Qualified Code(s): I26.02 - Saddle embolus of pulmonary artery with acute cor pulmonale Plan to address problem: continue therapeutic anticoagulation (2) Acute respiratory failure with hypoxia Current Visit: Yes Status: Resolved (3) Morbid (severe) obesity due to excess calories Current Visit: Yes Status: Chronic Plan to address problem: Pt counseled regarding balanced diet, increased physical activity (4) LIVAN on CPAP Current Visit: Yes Status: Acute Plan to address problem: continue NIPPV QHS, (5) Diabetes Current Visit: Yes Status: Chronic Qualifiers: Diabetes mellitus type: D Diabetes mellitus complication status: D Diabetes mellitus complication detail: D Diabetic retinopathy severity: D Proliferative retinopathy type: P Diabetes mellitus macular edema: D Diabetes mellitus assisted insulin use: D Laterality: L Chronic kidney disease stage: C Plan to address problem: ADA diet, insulin, accu check, supportive care. 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 NO new reported nursing events. Pt denies any new am complaints. Pt denies fever, chills, CP, Palpitaitons, hemoptysis, discussed care plan with patient and . Case management consulted for placement, Pt medically optimized for discharge. Hospitalist Physical - Constitutional Vitals: Temp Pulse Resp BP Pulse Ox 98.9 F 103 H 20 116/73 95 01/04/17 15:07 01/04/17 15:07 01/04/17 15:01/04/17 15:01/04/17 08:00 General appearance: Present: no acute distress, obese - EENT Eyes: Present: PERRL ENT: hearing intact - Neck Neck: Present: supple - Respiratory Respiratory: bilateral: CTA - Cardiovascular Rhythm: regular Heart Sounds: Present: S1 & S2 - Extremities Extremities: no ischemia Extremity abnormal: edema Peripheral Pulses: within normal limits - Abdominal General gastrointestinal: soft, non-tender, non-distended - Integumentary Integumentary: Present: clear, warm, dry - Psychiatric Psychiatric: appropriate mood/affect, cooperative - Neurologic Neurologic: CNII-XII intact Results - Labs CBC & Chem 7: 12/26/16 05:21 12/26/16 05:21 Labs: Laboratory Last Values WBC 5.9 K/mm3 (4.5-11.0) 12/26/16 05:21 RBC 4.14 M/mm3 (3.65-5.03) 12/26/16 05:21 Hgb 10.7 gm/dl (11.8-15.2) L 12/26/16 05:21 Hct 33.4 % (35.5-45.6) L 12/26/16 05:21 MCV 81 fl (84-94) L 12/26/16 05:21 MCH 26 pg (28-32) L 12/26/16 05:21 MCHC 32 % (32-34) 12/26/16 05:21 RDW 16.6 % (13.2-15.2) H 12/26/16 05:21 Plt Count 278 K/mm3 (140-440) 12/26/16 05:21 Lymph % (Auto) 33.0 % (13.4-35.0) 12/26/16 05:21 [place] % (Auto) 13.5 % (0.0-7.3) H 12/26/16 05:21 Eos % (Auto) 6.9 % (0.0-4.3) H 12/26/16 05:21 Baso % (Auto) 0.9 % (0.0-1.8) 12/26/16 05:21 Lymph # 1.9 K/mm3 (1.2-5.4) 12/26/16 05:21 [place] # 0.8 K/mm3 (0.0-0.8) 12/26/16 05:21 Eos # 0.4 K/mm3 (0.0-0.4) 12/26/16 05:21 Baso # 0.1 K/mm3 (0.0-0.1) 12/26/16 05:21 Add Manual Diff Complete 11/27/16 17:00 Total Counted 100 11/27/16 17:00 Seg Neutrophils % 45.7 % (40.0-70.0) 12/26/16 05:21 Seg Neuts % (Manual) 80.0 % (40.0-70.0) H 11/27/16 17:00 Band Neutrophils % 0 % 11/27/16 17:00 Lymphocytes % (Manual) 9.0 % (13.4-35.0) L 11/27/16 17:00 Reactive Lymphs % (Man) 0 % 11/27/16 17:00 Monocytes % (Manual) 9.0 % (0.0-7.3) H 11/27/16 17:00 Eosinophils % (Manual) 0 % (0.0-4.3) 11/27/16 17:00 Basophils % (Manual) 0 % (0.0-1.8) 11/27/16 17:00 Metamyelocytes % 2.0 % 11/27/16 17:00 Myelocytes % 0 % 11/27/16 17:00 Promyelocytes % 0 % 11/27/16 17:00 Blast Cells % 0 % 11/27/16 17:00 Nucleated RBC % Not Reportable 11/27/16 17:00 Seg Neutrophils # 2.7 K/mm3 (1.8-7.7) 12/26/16 05:21 Seg Neutrophils # Man 7.7 K/mm3 (1.8-7.7) 11/27/16 17:00 Band Neutrophils # 0.0 K/mm3 11/27/16 17:00 Lymphocytes # (Manual) 0.9 K/mm3 (1.2-5.4) L 11/27/16 17:00 Abs React Lymphs (Man) 0.0 K/mm3 11/27/16 17:00 Monocytes # (Manual) 0.9 K/mm3 (0.0-0.8) H 11/27/16 17:00 Eosinophils # (Manual) 0.0 K/mm3 (0.0-0.4) 11/27/16 17:00 Basophils # (Manual) 0.0 K/mm3 (0.0-0.1) 11/27/16 17:00 Metamyelocytes # 0.2 K/mm3 11/27/16 17:00 Myelocytes # 0.0 K/mm3 11/27/16 17:00 Promyelocytes # 0.0 K/mm3 11/27/16 17:00 Blast Cells # 0.0 K/mm3 11/27/16 17:00 WBC Morphology Not Reportable 11/27/16 17:00 Hypersegmented Neuts Not Reportable 11/27/16 17:00 Hyposegmented Neuts Not Reportable 11/27/16 17:00 Hypogranular Neuts Not Reportable 11/27/16 17:00 Smudge Cells Not Reportable 11/27/16 17:00 Toxic Granulation Not Reportable 11/27/16 17:00 Toxic Vacuolation Not Reportable 11/27/16 17:00 Dohle Bodies Not Reportable 11/27/16 17:00 Pelger-Huet Anomaly Not Reportable 11/27/16 17:00 Mati Rods Not Reportable 11/27/16 17:00 Platelet Estimate Consistent w auto 11/27/16 17:00 Clumped Platelets Not Reportable 11/27/16 17:00 Plt Clumps, EDTA Not Reportable 11/27/16 17:00 Large Platelets Not Reportable 11/27/16 17:00 Giant Platelets Not Reportable 11/27/16 17:00 Platelet Satelliting Not Reportable 11/27/16 17:00 Plt Morphology Comment Not Reportable 11/27/16 17:00 RBC Morphology Not Reportable 11/27/16 17:00 Dimorphic RBCs Not Reportable 11/27/16 17:00 Polychromasia Not Reportable 11/27/16 17:00 Hypochromasia Not Reportable 11/27/16 17:00 Poikilocytosis Not Reportable 11/27/16 17:00 Anisocytosis 1+ 11/27/16 17:00 Microcytosis Not Reportable 11/27/16 17:00 Macrocytosis Not Reportable 11/27/16 17:00 Spherocytes Not Reportable 11/27/16 17:00 Pappenheimer Bodies Not Reportable 11/27/16 17:00 Sickle Cells Not Reportable 11/27/16 17:00 Target Cells Not Reportable 11/27/16 17:00 Tear Drop Cells Not Reportable 11/27/16 17:00 Ovalocytes Not Reportable 11/27/16 17:00 Helmet Cells Not Reportable 11/27/16 17:00 [place] Bodies Not Reportable 11/27/16 17:00 [place] Rings Not Reportable 11/27/16 17:00 [place] Cells Not Reportable 11/27/16 17:00 Bite Cells Not Reportable 11/27/16 17:00 Crenated Cell Not Reportable 11/27/16 17:00 Elliptocytes Not Reportable 11/27/16 17:00 Acanthocytes (Spur) Not Reportable 11/27/16 17:00 Rouleaux Not Reportable 11/27/16 17:00 Hemoglobin C Crystals Not Reportable 11/27/16 17:00 Schistocytes Not Reportable 11/27/16 17:00 Malaria parasites Not Reportable 11/27/16 17:00 Michael Bodies Not Reportable 11/27/16 17:00 Hem Pathologist Commnt No 11/27/16 17:00 PT 23.9 Sec. (12.2-14.9) H 11/30/16 17:15 INR 2.13 (0.87-1.13) H 11/30/16 17:15 APTT 62.0 Sec. (24.2-36.6) H* 12/04/16 Unknown Fibrinogen 474 mg/dl (211-480) 11/27/16 23:00 Heparin Anti-Xa Level 0.14 U.I./ml (0.3-0.7) L 11/30/16 Unknown Heparin Anti-Xa, Unfract Negative (Negative) 11/30/16 Unknown Sodium 142 mmol/L (137-145) 12/26/16 05:21 Potassium 3.8 mmol/L (3.6-5.0) 12/26/16 05:21 Chloride 104.0 mmol/L (98-107) 12/26/16 05:21 Carbon Dioxide 23 mmol/L (22-30) 12/26/16 05:21 Anion Gap 19 mmol/L 12/26/16 05:21 BUN 11 mg/dL (9-20) 12/26/16 05:21 Creatinine 0.4 mg/dL (0.8-1.5) L 12/26/16 05:21 Estimated GFR > 60 ml/min 12/26/16 05:21 BUN/Creatinine Ratio 27.50 % 12/26/16 05:21 Glucose 124 mg/dL (75-100) H 12/26/16 05:21 POC Glucose 136 (70-105) H 01/04/17 16:38 Calcium 9.5 mg/dL (8.4-10.2) 12/26/16 05:21 Total Bilirubin 0.3 mg/dL (0.1-1.2) 12/07/16 06:32 Direct Bilirubin 0.2 mg/dL (0-0.2) 11/30/16 04:18 Indirect Bilirubin 0.5 mg/dL 11/30/16 04:18 AST 12 units/L (5-40) 12/07/16 06:32 ALT 21 units/L (7-56) 12/07/16 06:32 Alkaline Phosphatase 83 units/L (35-129) 12/07/16 06:32 Total Protein 6.2 g/dL (6.3-8.2) L 12/07/16 06:32 Albumin 2.9 g/dL (3.9-5) L 12/07/16 06:32 Albumin/Globulin Ratio 0.9 % 12/07/16 06:32 Serotonin Release Assay See scanned report 11/30/16 Unknown Urine Color Yellow (Yellow) 12/31/16 11:30 Urine Turbidity Cloudy (Clear) 12/31/16 11:30 Urine pH 5.0 (5.0-7.0) 12/31/16 11:30 Ur Specific [place] 1.017 (1.003-1.030) 12/31/16 11:30 Urine Protein <15 mg/dl mg/dL (Negative) 12/31/16 11:30 Urine Glucose (UA) Neg mg/dL (Negative) 12/31/16 11:30 Urine Ketones Neg mg/dL (Negative) 12/31/16 11:30 Urine Blood Sm (Negative) 12/31/16 11:30 Urine Nitrite Neg (Negative) 12/31/16 11:30 Urine Bilirubin Neg (Negative) 12/31/16 11:30 Urine Urobilinogen 2.0 mg/dL (<2.0) 12/31/16 11:30 Ur Leukocyte Esterase Lg (Negative) 12/31/16 11:30 Urine WBC (Auto) > 182.0 /HPF (0.0-6.0) H 12/31/16 11:30 Urine RBC (Auto) 3.0 /HPF (0.0-6.0) 12/31/16 11:30 U Epithel Cells (Auto) < 1.0 /HPF (0-13.0) 11/30/16 Unknown Urine Bacteria (Auto) 2+ /HPF (Negative) 12/31/16 11:30 Uric Acid Crystals 1+ 11/30/16 Unknown Amorphous Crystals Few 12/31/16 11:30 Urine Mucus 1+ /HPF 12/31/16 11:30 Heparin-induced Plt Ab Negative (Negative) 11/30/16 Unknown UF Heparin High Dose 0 % Release (()) 11/30/16 Unknown MIKA UFH Low Dose 0.1 1 % Release (()) 11/30/16 Unknown MIKA UFH Low Dose 0.5 0 % Release (()) 11/30/16 Unknown Blood Type O POSITIVE 11/27/16 02:58 Antibody Screen Negative 11/27/16 02:58
[2017-01-04] MEDS: DILAUDID PO PRN (23:18)
[2017-01-05] MEDS: DILAUDID PO PRN ×2 (05:29→14:40)
[2017-01-05] MEDS: XANAX PO PRN ×3 (05:29→22:00)
[2017-01-05] MEDS: CARAFATE PO SCH ×4 (09:33→21:58)
[2017-01-05] MEDS: DOLOPHINE PO SCH (09:34)
[2017-01-05] MEDS: ELIQUIS PO SCH ×2 (09:34→21:58)
[2017-01-05] MEDS: LEVAQUIN PO SCH (09:34)
[2017-01-05] MEDS: PROTONIX PO SCH ×2 (09:34→21:59)
[2017-01-05] MEDS: PEPCID PO SCH ×2 (09:34→21:59)
[2017-01-05] MEDS: NOVOLOG SUB-Q SCH ×3 (10:47→17:31)
[2017-01-05] MEDS: NYSTOP TP SCH ×2 (17:26→21:59)
[2017-01-05] MEDS: ROXICODONE PO PRN (18:43)
[2017-01-05] MEDS: NEURONTIN PO SCH (18:43)
[2017-01-05] MEDS: DILAUDID IM PRN (21:57)
[2017-01-06] MEDS: NOVOLOG SUB-Q SCH ×5 (00:43→22:02)
--- NOTE | 2017-01-06 07:18 | Progress Note ---
Assessment and Plan - Patient Problems (1) Pulmonary embolism Current Visit: Yes Status: Resolved Qualifiers: Pulmonary embolism type: saddle Chronicity: acute Acute cor pulmonale presence: with acute cor pulmonale Qualified Code(s): I26.02 - Saddle embolus of pulmonary artery with acute cor pulmonale Plan to address problem: continue therapeutic anticoagulation (2) Acute respiratory failure with hypoxia Current Visit: Yes Status: Resolved (3) Morbid (severe) obesity due to excess calories Current Visit: Yes Status: Chronic Plan to address problem: Pt counseled regarding balanced diet, increased physical activity (4) LIVAN on CPAP Current Visit: Yes Status: Acute Plan to address problem: continue NIPPV QHS, (5) Diabetes Current Visit: Yes Status: Chronic Qualifiers: Diabetes mellitus type: D Diabetes mellitus complication status: D Diabetes mellitus complication detail: D Diabetic retinopathy severity: D Proliferative retinopathy type: P Diabetes mellitus macular edema: D Diabetes mellitus skilled nursing insulin use: D Laterality: L Chronic kidney disease stage: C Plan to address problem: ADA diet, insulin, accu check, supportive care. 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 NO new reported nursing events. Pt denies any new am complaints. Pt denies fever, chills, CP, Palpitaitons, hemoptysis, discussed care plan with patient and . Case management consulted for placement, Pt medically optimized for discharge. Hospitalist Physical - Constitutional Vitals: Temp Pulse Resp BP Pulse Ox 98.1 F 83 18 118/81 99 01/05/17 23:48 01/05/17 23:48 01/05/17 23:48 01/05/17 23:48 01/05/17 23:48 General appearance: Present: no acute distress, obese - EENT Eyes: Present: PERRL, EOM intact ENT: hearing intact - Neck Neck: Present: supple - Respiratory Respiratory: bilateral: CTA - Cardiovascular Rhythm: regular Heart Sounds: Present: S1 & S2 - Extremities Extremities: no ischemia Peripheral Pulses: within normal limits - Abdominal General gastrointestinal: soft, non-tender, non-distended - Integumentary Integumentary: Present: clear, dry - Psychiatric Psychiatric: appropriate mood/affect, cooperative - Neurologic Neurologic: CNII-XII intact, moves all extremities, no gait normal Results - Labs CBC & Chem 7: 12/26/16 05:21 12/26/16 05:21 Labs: Laboratory Last Values WBC 5.9 K/mm3 (4.5-11.0) 12/26/16 05:21 RBC 4.14 M/mm3 (3.65-5.03) 12/26/16 05:21 Hgb 10.7 gm/dl (11.8-15.2) L 12/26/16 05:21 Hct 33.4 % (35.5-45.6) L 12/26/16 05:21 MCV 81 fl (84-94) L 12/26/16 05:21 MCH 26 pg (28-32) L 12/26/16 05:21 MCHC 32 % (32-34) 12/26/16 05:21 RDW 16.6 % (13.2-15.2) H 12/26/16 05:21 Plt Count 278 K/mm3 (140-440) 12/26/16 05:21 Lymph % (Auto) 33.0 % (13.4-35.0) 12/26/16 05:21 [place] % (Auto) 13.5 % (0.0-7.3) H 12/26/16 05:21 Eos % (Auto) 6.9 % (0.0-4.3) H 12/26/16 05:21 Baso % (Auto) 0.9 % (0.0-1.8) 12/26/16 05:21 Lymph # 1.9 K/mm3 (1.2-5.4) 12/26/16 05:21 [place] # 0.8 K/mm3 (0.0-0.8) 12/26/16 05:21 Eos # 0.4 K/mm3 (0.0-0.4) 12/26/16 05:21 Baso # 0.1 K/mm3 (0.0-0.1) 12/26/16 05:21 Add Manual Diff Complete 11/27/16 17:00 Total Counted 100 11/27/16 17:00 Seg Neutrophils % 45.7 % (40.0-70.0) 12/26/16 05:21 Seg Neuts % (Manual) 80.0 % (40.0-70.0) H 11/27/16 17:00 Band Neutrophils % 0 % 11/27/16 17:00 Lymphocytes % (Manual) 9.0 % (13.4-35.0) L 11/27/16 17:00 Reactive Lymphs % (Man) 0 % 11/27/16 17:00 Monocytes % (Manual) 9.0 % (0.0-7.3) H 11/27/16 17:00 Eosinophils % (Manual) 0 % (0.0-4.3) 11/27/16 17:00 Basophils % (Manual) 0 % (0.0-1.8) 11/27/16 17:00 Metamyelocytes % 2.0 % 11/27/16 17:00 Myelocytes % 0 % 11/27/16 17:00 Promyelocytes % 0 % 11/27/16 17:00 Blast Cells % 0 % 11/27/16 17:00 Nucleated RBC % Not Reportable 11/27/16 17:00 Seg Neutrophils # 2.7 K/mm3 (1.8-7.7) 12/26/16 05:21 Seg Neutrophils # Man 7.7 K/mm3 (1.8-7.7) 11/27/16 17:00 Band Neutrophils # 0.0 K/mm3 11/27/16 17:00 Lymphocytes # (Manual) 0.9 K/mm3 (1.2-5.4) L 11/27/16 17:00 Abs React Lymphs (Man) 0.0 K/mm3 11/27/16 17:00 Monocytes # (Manual) 0.9 K/mm3 (0.0-0.8) H 11/27/16 17:00 Eosinophils # (Manual) 0.0 K/mm3 (0.0-0.4) 11/27/16 17:00 Basophils # (Manual) 0.0 K/mm3 (0.0-0.1) 11/27/16 17:00 Metamyelocytes # 0.2 K/mm3 11/27/16 17:00 Myelocytes # 0.0 K/mm3 11/27/16 17:00 Promyelocytes # 0.0 K/mm3 11/27/16 17:00 Blast Cells # 0.0 K/mm3 11/27/16 17:00 WBC Morphology Not Reportable 11/27/16 17:00 Hypersegmented Neuts Not Reportable 11/27/16 17:00 Hyposegmented Neuts Not Reportable 11/27/16 17:00 Hypogranular Neuts Not Reportable 11/27/16 17:00 Smudge Cells Not Reportable 11/27/16 17:00 Toxic Granulation Not Reportable 11/27/16 17:00 Toxic Vacuolation Not Reportable 11/27/16 17:00 Dohle Bodies Not Reportable 11/27/16 17:00 Pelger-Huet Anomaly Not Reportable 11/27/16 17:00 Mati Rods Not Reportable 11/27/16 17:00 Platelet Estimate Consistent w auto 11/27/16 17:00 Clumped Platelets Not Reportable 11/27/16 17:00 Plt Clumps, EDTA Not Reportable 11/27/16 17:00 Large Platelets Not Reportable 11/27/16 17:00 Giant Platelets Not Reportable 11/27/16 17:00 Platelet Satelliting Not Reportable 11/27/16 17:00 Plt Morphology Comment Not Reportable 11/27/16 17:00 RBC Morphology Not Reportable 11/27/16 17:00 Dimorphic RBCs Not Reportable 11/27/16 17:00 Polychromasia Not Reportable 11/27/16 17:00 Hypochromasia Not Reportable 11/27/16 17:00 Poikilocytosis Not Reportable 11/27/16 17:00 Anisocytosis 1+ 11/27/16 17:00 Microcytosis Not Reportable 11/27/16 17:00 Macrocytosis Not Reportable 11/27/16 17:00 Spherocytes Not Reportable 11/27/16 17:00 Pappenheimer Bodies Not Reportable 11/27/16 17:00 Sickle Cells Not Reportable 11/27/16 17:00 Target Cells Not Reportable 11/27/16 17:00 Tear Drop Cells Not Reportable 11/27/16 17:00 Ovalocytes Not Reportable 11/27/16 17:00 Helmet Cells Not Reportable 11/27/16 17:00 [place] Bodies Not Reportable 11/27/16 17:00 [place] Rings Not Reportable 11/27/16 17:00 [place] Cells Not Reportable 11/27/16 17:00 Bite Cells Not Reportable 11/27/16 17:00 Crenated Cell Not Reportable 11/27/16 17:00 Elliptocytes Not Reportable 11/27/16 17:00 Acanthocytes (Spur) Not Reportable 11/27/16 17:00 Rouleaux Not Reportable 11/27/16 17:00 Hemoglobin C Crystals Not Reportable 11/27/16 17:00 Schistocytes Not Reportable 11/27/16 17:00 Malaria parasites Not Reportable 11/27/16 17:00 Michael Bodies Not Reportable 11/27/16 17:00 Hem Pathologist Commnt No 11/27/16 17:00 PT 23.9 Sec. (12.2-14.9) H 11/30/16 17:15 INR 2.13 (0.87-1.13) H 11/30/16 17:15 APTT 62.0 Sec. (24.2-36.6) H* 12/04/16 Unknown Fibrinogen 474 mg/dl (211-480) 11/27/16 23:00 Heparin Anti-Xa Level 0.14 U.I./ml (0.3-0.7) L 11/30/16 Unknown Heparin Anti-Xa, Unfract Negative (Negative) 11/30/16 Unknown Sodium 142 mmol/L (137-145) 12/26/16 05:21 Potassium 3.8 mmol/L (3.6-5.0) 12/26/16 05:21 Chloride 104.0 mmol/L (98-107) 12/26/16 05:21 Carbon Dioxide 23 mmol/L (22-30) 12/26/16 05:21 Anion Gap 19 mmol/L 12/26/16 05:21 BUN 11 mg/dL (9-20) 12/26/16 05:21 Creatinine 0.4 mg/dL (0.8-1.5) L 12/26/16 05:21 Estimated GFR > 60 ml/min 12/26/16 05:21 BUN/Creatinine Ratio 27.50 % 12/26/16 05:21 Glucose 124 mg/dL (75-100) H 12/26/16 05:21 POC Glucose 147 (70-105) H 01/06/17 06:09 Calcium 9.5 mg/dL (8.4-10.2) 12/26/16 05:21 Total Bilirubin 0.3 mg/dL (0.1-1.2) 12/07/16 06:32 Direct Bilirubin 0.2 mg/dL (0-0.2) 11/30/16 04:18 Indirect Bilirubin 0.5 mg/dL 11/30/16 04:18 AST 12 units/L (5-40) 12/07/16 06:32 ALT 21 units/L (7-56) 12/07/16 06:32 Alkaline Phosphatase 83 units/L (35-129) 12/07/16 06:32 Total Protein 6.2 g/dL (6.3-8.2) L 12/07/16 06:32 Albumin 2.9 g/dL (3.9-5) L 12/07/16 06:32 Albumin/Globulin Ratio 0.9 % 12/07/16 06:32 Serotonin Release Assay See scanned report 11/30/16 Unknown Urine Color Yellow (Yellow) 12/31/16 11:30 Urine Turbidity Cloudy (Clear) 12/31/16 11:30 Urine pH 5.0 (5.0-7.0) 12/31/16 11:30 Ur Specific [place] 1.017 (1.003-1.030) 12/31/16 11:30 Urine Protein <15 mg/dl mg/dL (Negative) 12/31/16 11:30 Urine Glucose (UA) Neg mg/dL (Negative) 12/31/16 11:30 Urine Ketones Neg mg/dL (Negative) 12/31/16 11:30 Urine Blood Sm (Negative) 12/31/16 11:30 Urine Nitrite Neg (Negative) 12/31/16 11:30 Urine Bilirubin Neg (Negative) 12/31/16 11:30 Urine Urobilinogen 2.0 mg/dL (<2.0) 12/31/16 11:30 Ur Leukocyte Esterase Lg (Negative) 12/31/16 11:30 Urine WBC (Auto) > 182.0 /HPF (0.0-6.0) H 12/31/16 11:30 Urine RBC (Auto) 3.0 /HPF (0.0-6.0) 12/31/16 11:30 U Epithel Cells (Auto) < 1.0 /HPF (0-13.0) 11/30/16 Unknown Urine Bacteria (Auto) 2+ /HPF (Negative) 12/31/16 11:30 Uric Acid Crystals 1+ 11/30/16 Unknown Amorphous Crystals Few 12/31/16 11:30 Urine Mucus 1+ /HPF 12/31/16 11:30 Heparin-induced Plt Ab Negative (Negative) 11/30/16 Unknown UF Heparin High Dose 0 % Release (()) 11/30/16 Unknown MIKA UFH Low Dose 0.1 1 % Release (()) 11/30/16 Unknown MIKA UFH Low Dose 0.5 0 % Release (()) 11/30/16 Unknown Blood Type O POSITIVE 11/27/16 02:58 Antibody Screen Negative 11/27/16 02:58
[2017-01-06] MEDS: XANAX PO PRN ×3 (10:11→21:40)
[2017-01-06] MEDS: DOLOPHINE PO SCH (10:11)
[2017-01-06] MEDS: PROTONIX PO SCH ×2 (10:11→21:39)
[2017-01-06] MEDS: CARAFATE PO SCH ×4 (10:11→21:38)
[2017-01-06] MEDS: ELIQUIS PO SCH ×2 (10:13→21:38)
[2017-01-06] MEDS: PEPCID PO SCH ×2 (10:13→21:38)
[2017-01-06] MEDS: LEVAQUIN PO SCH (10:14)
[2017-01-06] MEDS: NYSTOP TP SCH ×3 (10:19→21:38)
[2017-01-06] MEDS: ROXICODONE PO PRN ×2 (11:38→16:51)
--- NOTE | 2017-01-06 15:29 | Progress Note ---
Assessment and Plan - Patient Problems (1) Pulmonary embolism Current Visit: Yes Status: Resolved Qualifiers: Pulmonary embolism type: saddle Chronicity: acute Acute cor pulmonale presence: with acute cor pulmonale Qualified Code(s): I26.02 - Saddle embolus of pulmonary artery with acute cor pulmonale Plan to address problem: continue therapeutic anticoagulation (2) Acute respiratory failure with hypoxia Current Visit: Yes Status: Resolved (3) Morbid (severe) obesity due to excess calories Current Visit: Yes Status: Chronic Plan to address problem: Pt counseled regarding balanced diet, increased physical activity (4) LIVAN on CPAP Current Visit: Yes Status: Acute Plan to address problem: continue NIPPV QHS, (5) Diabetes Current Visit: Yes Status: Chronic Qualifiers: Diabetes mellitus type: D Diabetes mellitus complication status: D Diabetes mellitus complication detail: D Diabetic retinopathy severity: D Proliferative retinopathy type: P Diabetes mellitus macular edema: D Diabetes mellitus custodial insulin use: D Laterality: L Chronic kidney disease stage: C Plan to address problem: ADA diet, insulin, accu check, supportive care. 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 NO new reported nursing events. Pt denies any new am complaints. Pt denies fever, chills, CP, Palpitaitons, hemoptysis, discussed care plan with patient and . Case management consulted for placement, Pt medically. Pt discharged. Hospitalist Physical - Constitutional Vitals: Temp Pulse Resp BP Pulse Ox 98.4 F 76 18 116/68 97 01/06/17 08:00 01/06/17 08:00 01/06/17 08:00 01/06/17 08:00 01/06/17 08:00 General appearance: Present: no acute distress, obese - EENT Eyes: Present: PERRL, EOM intact ENT: hearing intact - Neck Neck: Present: supple - Respiratory Respiratory: bilateral: CTA - Cardiovascular Rhythm: regular Heart Sounds: Present: S1 & S2 - Extremities Extremities: no ischemia Peripheral Pulses: within normal limits - Abdominal General gastrointestinal: soft, non-tender, non-distended - Integumentary Integumentary: Present: clear, warm, dry - Psychiatric Psychiatric: appropriate mood/affect, cooperative - Neurologic Neurologic: CNII-XII intact Results - Labs CBC & Chem 7: 12/26/16 05:21 12/26/16 05:21 Labs: Laboratory Last Values WBC 5.9 K/mm3 (4.5-11.0) 12/26/16 05:21 RBC 4.14 M/mm3 (3.65-5.03) 12/26/16 05:21 Hgb 10.7 gm/dl (11.8-15.2) L 12/26/16 05:21 Hct 33.4 % (35.5-45.6) L 12/26/16 05:21 MCV 81 fl (84-94) L 12/26/16 05:21 MCH 26 pg (28-32) L 12/26/16 05:21 MCHC 32 % (32-34) 12/26/16 05:21 RDW 16.6 % (13.2-15.2) H 12/26/16 05:21 Plt Count 278 K/mm3 (140-440) 12/26/16 05:21 Lymph % (Auto) 33.0 % (13.4-35.0) 12/26/16 05:21 [place] % (Auto) 13.5 % (0.0-7.3) H 12/26/16 05:21 Eos % (Auto) 6.9 % (0.0-4.3) H 12/26/16 05:21 Baso % (Auto) 0.9 % (0.0-1.8) 12/26/16 05:21 Lymph # 1.9 K/mm3 (1.2-5.4) 12/26/16 05:21 [place] # 0.8 K/mm3 (0.0-0.8) 12/26/16 05:21 Eos # 0.4 K/mm3 (0.0-0.4) 12/26/16 05:21 Baso # 0.1 K/mm3 (0.0-0.1) 12/26/16 05:21 Add Manual Diff Complete 11/27/16 17:00 Total Counted 100 11/27/16 17:00 Seg Neutrophils % 45.7 % (40.0-70.0) 12/26/16 05:21 Seg Neuts % (Manual) 80.0 % (40.0-70.0) H 11/27/16 17:00 Band Neutrophils % 0 % 11/27/16 17:00 Lymphocytes % (Manual) 9.0 % (13.4-35.0) L 11/27/16 17:00 Reactive Lymphs % (Man) 0 % 11/27/16 17:00 Monocytes % (Manual) 9.0 % (0.0-7.3) H 11/27/16 17:00 Eosinophils % (Manual) 0 % (0.0-4.3) 11/27/16 17:00 Basophils % (Manual) 0 % (0.0-1.8) 11/27/16 17:00 Metamyelocytes % 2.0 % 11/27/16 17:00 Myelocytes % 0 % 11/27/16 17:00 Promyelocytes % 0 % 11/27/16 17:00 Blast Cells % 0 % 11/27/16 17:00 Nucleated RBC % Not Reportable 11/27/16 17:00 Seg Neutrophils # 2.7 K/mm3 (1.8-7.7) 12/26/16 05:21 Seg Neutrophils # Man 7.7 K/mm3 (1.8-7.7) 11/27/16 17:00 Band Neutrophils # 0.0 K/mm3 11/27/16 17:00 Lymphocytes # (Manual) 0.9 K/mm3 (1.2-5.4) L 11/27/16 17:00 Abs React Lymphs (Man) 0.0 K/mm3 11/27/16 17:00 Monocytes # (Manual) 0.9 K/mm3 (0.0-0.8) H 11/27/16 17:00 Eosinophils # (Manual) 0.0 K/mm3 (0.0-0.4) 11/27/16 17:00 Basophils # (Manual) 0.0 K/mm3 (0.0-0.1) 11/27/16 17:00 Metamyelocytes # 0.2 K/mm3 11/27/16 17:00 Myelocytes # 0.0 K/mm3 11/27/16 17:00 Promyelocytes # 0.0 K/mm3 11/27/16 17:00 Blast Cells # 0.0 K/mm3 11/27/16 17:00 WBC Morphology Not Reportable 11/27/16 17:00 Hypersegmented Neuts Not Reportable 11/27/16 17:00 Hyposegmented Neuts Not Reportable 11/27/16 17:00 Hypogranular Neuts Not Reportable 11/27/16 17:00 Smudge Cells Not Reportable 11/27/16 17:00 Toxic Granulation Not Reportable 11/27/16 17:00 Toxic Vacuolation Not Reportable 11/27/16 17:00 Dohle Bodies Not Reportable 11/27/16 17:00 Pelger-Huet Anomaly Not Reportable 11/27/16 17:00 Mati Rods Not Reportable 11/27/16 17:00 Platelet Estimate Consistent w auto 11/27/16 17:00 Clumped Platelets Not Reportable 11/27/16 17:00 Plt Clumps, EDTA Not Reportable 11/27/16 17:00 Large Platelets Not Reportable 11/27/16 17:00 Giant Platelets Not Reportable 11/27/16 17:00 Platelet Satelliting Not Reportable 11/27/16 17:00 Plt Morphology Comment Not Reportable 11/27/16 17:00 RBC Morphology Not Reportable 11/27/16 17:00 Dimorphic RBCs Not Reportable 11/27/16 17:00 Polychromasia Not Reportable 11/27/16 17:00 Hypochromasia Not Reportable 11/27/16 17:00 Poikilocytosis Not Reportable 11/27/16 17:00 Anisocytosis 1+ 11/27/16 17:00 Microcytosis Not Reportable 11/27/16 17:00 Macrocytosis Not Reportable 11/27/16 17:00 Spherocytes Not Reportable 11/27/16 17:00 Pappenheimer Bodies Not Reportable 11/27/16 17:00 Sickle Cells Not Reportable 11/27/16 17:00 Target Cells Not Reportable 11/27/16 17:00 Tear Drop Cells Not Reportable 11/27/16 17:00 Ovalocytes Not Reportable 11/27/16 17:00 Helmet Cells Not Reportable 11/27/16 17:00 [place] Bodies Not Reportable 11/27/16 17:00 [place] Rings Not Reportable 11/27/16 17:00 [place] Cells Not Reportable 11/27/16 17:00 Bite Cells Not Reportable 11/27/16 17:00 Crenated Cell Not Reportable 11/27/16 17:00 Elliptocytes Not Reportable 11/27/16 17:00 Acanthocytes (Spur) Not Reportable 11/27/16 17:00 Rouleaux Not Reportable 11/27/16 17:00 Hemoglobin C Crystals Not Reportable 11/27/16 17:00 Schistocytes Not Reportable 11/27/16 17:00 Malaria parasites Not Reportable 11/27/16 17:00 Michael Bodies Not Reportable 11/27/16 17:00 Hem Pathologist Commnt No 11/27/16 17:00 PT 23.9 Sec. (12.2-14.9) H 11/30/16 17:15 INR 2.13 (0.87-1.13) H 11/30/16 17:15 APTT 62.0 Sec. (24.2-36.6) H* 12/04/16 Unknown Fibrinogen 474 mg/dl (211-480) 11/27/16 23:00 Heparin Anti-Xa Level 0.14 U.I./ml (0.3-0.7) L 11/30/16 Unknown Heparin Anti-Xa, Unfract Negative (Negative) 11/30/16 Unknown Sodium 142 mmol/L (137-145) 12/26/16 05:21 Potassium 3.8 mmol/L (3.6-5.0) 12/26/16 05:21 Chloride 104.0 mmol/L (98-107) 12/26/16 05:21 Carbon Dioxide 23 mmol/L (22-30) 12/26/16 05:21 Anion Gap 19 mmol/L 12/26/16 05:21 BUN 11 mg/dL (9-20) 12/26/16 05:21 Creatinine 0.4 mg/dL (0.8-1.5) L 12/26/16 05:21 Estimated GFR > 60 ml/min 12/26/16 05:21 BUN/Creatinine Ratio 27.50 % 12/26/16 05:21 Glucose 124 mg/dL (75-100) H 12/26/16 05:21 POC Glucose 147 (70-105) H 01/06/17 06:09 Calcium 9.5 mg/dL (8.4-10.2) 12/26/16 05:21 Total Bilirubin 0.3 mg/dL (0.1-1.2) 12/07/16 06:32 Direct Bilirubin 0.2 mg/dL (0-0.2) 11/30/16 04:18 Indirect Bilirubin 0.5 mg/dL 11/30/16 04:18 AST 12 units/L (5-40) 12/07/16 06:32 ALT 21 units/L (7-56) 12/07/16 06:32 Alkaline Phosphatase 83 units/L (35-129) 12/07/16 06:32 Total Protein 6.2 g/dL (6.3-8.2) L 12/07/16 06:32 Albumin 2.9 g/dL (3.9-5) L 12/07/16 06:32 Albumin/Globulin Ratio 0.9 % 12/07/16 06:32 Serotonin Release Assay See scanned report 11/30/16 Unknown Urine Color Yellow (Yellow) 12/31/16 11:30 Urine Turbidity Cloudy (Clear) 12/31/16 11:30 Urine pH 5.0 (5.0-7.0) 12/31/16 11:30 Ur Specific [place] 1.017 (1.003-1.030) 12/31/16 11:30 Urine Protein <15 mg/dl mg/dL (Negative) 12/31/16 11:30 Urine Glucose (UA) Neg mg/dL (Negative) 12/31/16 11:30 Urine Ketones Neg mg/dL (Negative) 12/31/16 11:30 Urine Blood Sm (Negative) 12/31/16 11:30 Urine Nitrite Neg (Negative) 12/31/16 11:30 Urine Bilirubin Neg (Negative) 12/31/16 11:30 Urine Urobilinogen 2.0 mg/dL (<2.0) 12/31/16 11:30 Ur Leukocyte Esterase Lg (Negative) 12/31/16 11:30 Urine WBC (Auto) > 182.0 /HPF (0.0-6.0) H 12/31/16 11:30 Urine RBC (Auto) 3.0 /HPF (0.0-6.0) 12/31/16 11:30 U Epithel Cells (Auto) < 1.0 /HPF (0-13.0) 11/30/16 Unknown Urine Bacteria (Auto) 2+ /HPF (Negative) 12/31/16 11:30 Uric Acid Crystals 1+ 11/30/16 Unknown Amorphous Crystals Few 12/31/16 11:30 Urine Mucus 1+ /HPF 12/31/16 11:30 Heparin-induced Plt Ab Negative (Negative) 11/30/16 Unknown UF Heparin High Dose 0 % Release (()) 11/30/16 Unknown MIKA UFH Low Dose 0.1 1 % Release (()) 11/30/16 Unknown MIKA UFH Low Dose 0.5 0 % Release (()) 11/30/16 Unknown Blood Type O POSITIVE 11/27/16 02:58 Antibody Screen Negative 11/27/16 02:58
[2017-01-06] MEDS: NEURONTIN PO SCH ×2 (16:50→21:39)
[2017-01-06] MEDS: DILAUDID PO PRN (21:40)
[2017-01-07] MEDS: ROXICODONE PO PRN ×2 (01:00→16:12)
[2017-01-07] MEDS: NOVOLOG SUB-Q SCH ×4 (07:38→21:56)
[2017-01-07] MEDS: CARAFATE PO SCH ×4 (08:37→21:22)
[2017-01-07] MEDS: DOLOPHINE PO SCH (10:39)
[2017-01-07] MEDS: ELIQUIS PO SCH ×2 (10:39→21:22)
[2017-01-07] MEDS: LEVAQUIN PO SCH (10:39)
[2017-01-07] MEDS: PROTONIX PO SCH ×2 (10:40→21:24)
[2017-01-07] MEDS: NYSTOP TP SCH ×2 (10:40→21:23)
[2017-01-07] MEDS: PEPCID PO SCH ×2 (10:40→21:24)
[2017-01-07] MEDS: XANAX PO PRN ×2 (10:41→18:39)
[2017-01-07] MEDS: DILAUDID IM PRN (14:01)
[2017-01-07] MEDS: NEURONTIN PO SCH (17:20)
[2017-01-07] MEDS: DILAUDID PO PRN (19:11)
--- NOTE | 2017-01-07 19:19 | Progress Note ---
Assessment and Plan - Patient Problems (1) Pulmonary embolism Current Visit: Yes Status: Resolved Qualifiers: Pulmonary embolism type: saddle Chronicity: acute Acute cor pulmonale presence: with acute cor pulmonale Qualified Code(s): I26.02 - Saddle embolus of pulmonary artery with acute cor pulmonale Plan to address problem: continue therapeutic anticoagulation (2) Acute respiratory failure with hypoxia Current Visit: Yes Status: Resolved (3) Morbid (severe) obesity due to excess calories Current Visit: Yes Status: Chronic Plan to address problem: Pt counseled regarding balanced diet, increased physical activity (4) LIVAN on CPAP Current Visit: Yes Status: Acute Plan to address problem: continue NIPPV QHS, (5) Diabetes Current Visit: Yes Status: Chronic Qualifiers: Diabetes mellitus type: D Diabetes mellitus complication status: D Diabetes mellitus complication detail: D Diabetic retinopathy severity: D Proliferative retinopathy type: P Diabetes mellitus macular edema: D Diabetes mellitus fdc insulin use: D Laterality: L Chronic kidney disease stage: C Plan to address problem: ADA diet, insulin, accu check, supportive care. 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 NO new reported nursing events. Pt denies any new am complaints. Pt denies fever, chills, CP, Palpitaitons, hemoptysis, discussed care plan with patient and . Case management consulted for placement, Pt medically optimized. Pt discharged. Hospitalist Physical - Constitutional Vitals: Temp Pulse Resp BP Pulse Ox 98.7 F 89 20 113/62 98 01/07/17 16:30 01/07/17 16:30 01/07/17 16:30 01/07/17 16:30 01/07/17 08:00 General appearance: Present: no acute distress, obese - EENT Eyes: Present: PERRL ENT: hearing intact - Neck Neck: Present: supple - Respiratory Respiratory effort: normal Respiratory: bilateral: CTA - Cardiovascular Rhythm: regular Heart Sounds: Present: S1 & S2 - Extremities Extremities: no ischemia Extremity abnormal: edema Peripheral Pulses: within normal limits - Abdominal General gastrointestinal: soft, non-tender, non-distended - Integumentary Integumentary: Present: clear, dry - Psychiatric Psychiatric: appropriate mood/affect, cooperative - Neurologic Neurologic: CNII-XII intact Results - Labs CBC & Chem 7: 12/26/16 05:21 12/26/16 05:21 Labs: Laboratory Last Values WBC 5.9 K/mm3 (4.5-11.0) 12/26/16 05:21 RBC 4.14 M/mm3 (3.65-5.03) 12/26/16 05:21 Hgb 10.7 gm/dl (11.8-15.2) L 12/26/16 05:21 Hct 33.4 % (35.5-45.6) L 12/26/16 05:21 MCV 81 fl (84-94) L 12/26/16 05:21 MCH 26 pg (28-32) L 12/26/16 05:21 MCHC 32 % (32-34) 12/26/16 05:21 RDW 16.6 % (13.2-15.2) H 12/26/16 05:21 Plt Count 278 K/mm3 (140-440) 12/26/16 05:21 Lymph % (Auto) 33.0 % (13.4-35.0) 12/26/16 05:21 Desha % (Auto) 13.5 % (0.0-7.3) H 12/26/16 05:21 Eos % (Auto) 6.9 % (0.0-4.3) H 12/26/16 05:21 Baso % (Auto) 0.9 % (0.0-1.8) 12/26/16 05:21 Lymph # 1.9 K/mm3 (1.2-5.4) 12/26/16 05:21 Desha # 0.8 K/mm3 (0.0-0.8) 12/26/16 05:21 Eos # 0.4 K/mm3 (0.0-0.4) 12/26/16 05:21 Baso # 0.1 K/mm3 (0.0-0.1) 12/26/16 05:21 Add Manual Diff Complete 11/27/16 17:00 Total Counted 100 11/27/16 17:00 Seg Neutrophils % 45.7 % (40.0-70.0) 12/26/16 05:21 Seg Neuts % (Manual) 80.0 % (40.0-70.0) H 11/27/16 17:00 Band Neutrophils % 0 % 11/27/16 17:00 Lymphocytes % (Manual) 9.0 % (13.4-35.0) L 11/27/16 17:00 Reactive Lymphs % (Man) 0 % 11/27/16 17:00 Monocytes % (Manual) 9.0 % (0.0-7.3) H 11/27/16 17:00 Eosinophils % (Manual) 0 % (0.0-4.3) 11/27/16 17:00 Basophils % (Manual) 0 % (0.0-1.8) 11/27/16 17:00 Metamyelocytes % 2.0 % 11/27/16 17:00 Myelocytes % 0 % 11/27/16 17:00 Promyelocytes % 0 % 11/27/16 17:00 Blast Cells % 0 % 11/27/16 17:00 Nucleated RBC % Not Reportable 11/27/16 17:00 Seg Neutrophils # 2.7 K/mm3 (1.8-7.7) 12/26/16 05:21 Seg Neutrophils # Man 7.7 K/mm3 (1.8-7.7) 11/27/16 17:00 Band Neutrophils # 0.0 K/mm3 11/27/16 17:00 Lymphocytes # (Manual) 0.9 K/mm3 (1.2-5.4) L 11/27/16 17:00 Abs React Lymphs (Man) 0.0 K/mm3 11/27/16 17:00 Monocytes # (Manual) 0.9 K/mm3 (0.0-0.8) H 11/27/16 17:00 Eosinophils # (Manual) 0.0 K/mm3 (0.0-0.4) 11/27/16 17:00 Basophils # (Manual) 0.0 K/mm3 (0.0-0.1) 11/27/16 17:00 Metamyelocytes # 0.2 K/mm3 11/27/16 17:00 Myelocytes # 0.0 K/mm3 11/27/16 17:00 Promyelocytes # 0.0 K/mm3 11/27/16 17:00 Blast Cells # 0.0 K/mm3 11/27/16 17:00 WBC Morphology Not Reportable 11/27/16 17:00 Hypersegmented Neuts Not Reportable 11/27/16 17:00 Hyposegmented Neuts Not Reportable 11/27/16 17:00 Hypogranular Neuts Not Reportable 11/27/16 17:00 Smudge Cells Not Reportable 11/27/16 17:00 Toxic Granulation Not Reportable 11/27/16 17:00 Toxic Vacuolation Not Reportable 11/27/16 17:00 Dohle Bodies Not Reportable 11/27/16 17:00 Pelger-Huet Anomaly Not Reportable 11/27/16 17:00 Mati Rods Not Reportable 11/27/16 17:00 Platelet Estimate Consistent w auto 11/27/16 17:00 Clumped Platelets Not Reportable 11/27/16 17:00 Plt Clumps, EDTA Not Reportable 11/27/16 17:00 Large Platelets Not Reportable 11/27/16 17:00 Giant Platelets Not Reportable 11/27/16 17:00 Platelet Satelliting Not Reportable 11/27/16 17:00 Plt Morphology Comment Not Reportable 11/27/16 17:00 RBC Morphology Not Reportable 11/27/16 17:00 Dimorphic RBCs Not Reportable 11/27/16 17:00 Polychromasia Not Reportable 11/27/16 17:00 Hypochromasia Not Reportable 11/27/16 17:00 Poikilocytosis Not Reportable 11/27/16 17:00 Anisocytosis 1+ 11/27/16 17:00 Microcytosis Not Reportable 11/27/16 17:00 Macrocytosis Not Reportable 11/27/16 17:00 Spherocytes Not Reportable 11/27/16 17:00 Pappenheimer Bodies Not Reportable 11/27/16 17:00 Sickle Cells Not Reportable 11/27/16 17:00 Target Cells Not Reportable 11/27/16 17:00 Tear Drop Cells Not Reportable 11/27/16 17:00 Ovalocytes Not Reportable 11/27/16 17:00 Helmet Cells Not Reportable 11/27/16 17:00 [place] Bodies Not Reportable 11/27/16 17:00 [place] Rings Not Reportable 11/27/16 17:00 William Cells Not Reportable 11/27/16 17:00 Bite Cells Not Reportable 11/27/16 17:00 Crenated Cell Not Reportable 11/27/16 17:00 Elliptocytes Not Reportable 11/27/16 17:00 Acanthocytes (Spur) Not Reportable 11/27/16 17:00 Rouleaux Not Reportable 11/27/16 17:00 Hemoglobin C Crystals Not Reportable 11/27/16 17:00 Schistocytes Not Reportable 11/27/16 17:00 Malaria parasites Not Reportable 11/27/16 17:00 Michael Bodies Not Reportable 11/27/16 17:00 Hem Pathologist Commnt No 11/27/16 17:00 PT 23.9 Sec. (12.2-14.9) H 11/30/16 17:15 INR 2.13 (0.87-1.13) H 11/30/16 17:15 APTT 62.0 Sec. (24.2-36.6) H* 12/04/16 Unknown Fibrinogen 474 mg/dl (211-480) 11/27/16 23:00 Heparin Anti-Xa Level 0.14 U.I./ml (0.3-0.7) L 11/30/16 Unknown Heparin Anti-Xa, Unfract Negative (Negative) 11/30/16 Unknown Sodium 142 mmol/L (137-145) 12/26/16 05:21 Potassium 3.8 mmol/L (3.6-5.0) 12/26/16 05:21 Chloride 104.0 mmol/L (98-107) 12/26/16 05:21 Carbon Dioxide 23 mmol/L (22-30) 12/26/16 05:21 Anion Gap 19 mmol/L 12/26/16 05:21 BUN 11 mg/dL (9-20) 12/26/16 05:21 Creatinine 0.4 mg/dL (0.8-1.5) L 12/26/16 05:21 Estimated GFR > 60 ml/min 12/26/16 05:21 BUN/Creatinine Ratio 27.50 % 12/26/16 05:21 Glucose 124 mg/dL (75-100) H 12/26/16 05:21 POC Glucose 138 (70-105) H 01/07/17 16:51 Calcium 9.5 mg/dL (8.4-10.2) 12/26/16 05:21 Total Bilirubin 0.3 mg/dL (0.1-1.2) 12/07/16 06:32 Direct Bilirubin 0.2 mg/dL (0-0.2) 11/30/16 04:18 Indirect Bilirubin 0.5 mg/dL 11/30/16 04:18 AST 12 units/L (5-40) 12/07/16 06:32 ALT 21 units/L (7-56) 12/07/16 06:32 Alkaline Phosphatase 83 units/L (35-129) 12/07/16 06:32 Total Protein 6.2 g/dL (6.3-8.2) L 12/07/16 06:32 Albumin 2.9 g/dL (3.9-5) L 12/07/16 06:32 Albumin/Globulin Ratio 0.9 % 12/07/16 06:32 Serotonin Release Assay See scanned report 11/30/16 Unknown Urine Color Yellow (Yellow) 12/31/16 11:30 Urine Turbidity Cloudy (Clear) 12/31/16 11:30 Urine pH 5.0 (5.0-7.0) 12/31/16 11:30 Ur Specific [place] 1.017 (1.003-1.030) 12/31/16 11:30 Urine Protein <15 mg/dl mg/dL (Negative) 12/31/16 11:30 Urine Glucose (UA) Neg mg/dL (Negative) 12/31/16 11:30 Urine Ketones Neg mg/dL (Negative) 12/31/16 11:30 Urine Blood Sm (Negative) 12/31/16 11:30 Urine Nitrite Neg (Negative) 12/31/16 11:30 Urine Bilirubin Neg (Negative) 12/31/16 11:30 Urine Urobilinogen 2.0 mg/dL (<2.0) 12/31/16 11:30 Ur Leukocyte Esterase Lg (Negative) 12/31/16 11:30 Urine WBC (Auto) > 182.0 /HPF (0.0-6.0) H 12/31/16 11:30 Urine RBC (Auto) 3.0 /HPF (0.0-6.0) 12/31/16 11:30 U Epithel Cells (Auto) < 1.0 /HPF (0-13.0) 11/30/16 Unknown Urine Bacteria (Auto) 2+ /HPF (Negative) 12/31/16 11:30 Uric Acid Crystals 1+ 11/30/16 Unknown Amorphous Crystals Few 12/31/16 11:30 Urine Mucus 1+ /HPF 12/31/16 11:30 Heparin-induced Plt Ab Negative (Negative) 11/30/16 Unknown UF Heparin High Dose 0 % Release (()) 11/30/16 Unknown MIKA UFH Low Dose 0.1 1 % Release (()) 11/30/16 Unknown MIKA UFH Low Dose 0.5 0 % Release (()) 11/30/16 Unknown Blood Type O POSITIVE 11/27/16 02:58 Antibody Screen Negative 11/27/16 02:58
[2017-01-08] MEDS: DILAUDID IM PRN ×2 (04:50→16:25)
[2017-01-08] MEDS: NOVOLOG SUB-Q SCH ×4 (07:52→22:11)
[2017-01-08] MEDS: CARAFATE PO SCH ×4 (08:53→22:10)
[2017-01-08] MEDS: DOLOPHINE PO SCH (10:27)
[2017-01-08] MEDS: ELIQUIS PO SCH ×2 (10:27→22:11)
[2017-01-08] MEDS: NYSTOP TP SCH ×2 (10:27→22:12)
[2017-01-08] MEDS: PEPCID PO SCH ×2 (10:28→22:12)
[2017-01-08] MEDS: PROTONIX PO SCH ×2 (10:28→22:12)
[2017-01-08] MEDS: XANAX PO PRN ×3 (10:29→23:39)
--- NOTE | 2017-01-08 11:32 | Consultation ---
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 Should has been hospitalized for over 6 weeks with limited mobility mostly due to the long respiratory failure requiring intubation and trach placement.. During current trials of physical therapy complains of severe back pain and left hip and posterior thigh pain. He denies saddle anesthesia or numbness in the same distribution. He denies bowel or bladder incontinence. He has pain when turned in the bed. Patient denies any change in his symptoms since the MRI performed in December. Past History Past Medical History: diabetes, hypertension, other (pneumonia, sepsis, sleep apnea, morbid obesity, psoas abscess) Past Surgical History: Other (s/p trach, EKOS, PEG) Social history: , other (chews tobacco). denies: alcohol abuse Family history: diabetes Medications and Allergies Allergies Allergy/AdvReac Type Severity Reaction Status Date / Time gentamicin Allergy Unknown Verified 11/27/16 02:31 neomycin Allergy Unknown Verified 11/27/16 02:31 Home Medications Medication Instructions Recorded Confirmed Last Taken Type Arformoterol Nebu [Brovana Nebu] 2 ml INHALATION BID 11/29/16 11/29/16 Unknown History FLUoxetine [PROzac] 20 mg FEEDTUBE QDAY 11/29/16 11/29/16 Unknown History HumaLOG VIAL See Protocol SUB-Q Q6H 11/29/16 11/29/16 Unknown History Methadone [Dolophine] 20 mg FEEDTUBE DAILY 11/29/16 11/29/16 11/25/16 History Pantoprazole [Protonix TAB] 40 mg FEEDTUBE DAILY 11/29/16 11/29/16 11/25/16 History Sucralfate [Carafate] 1 gm FEEDTUBE Q6HR 11/29/16 11/29/16 11/25/16 History Tamsulosin [Flomax] 0.4 mg PO QHS 11/29/16 11/29/16 11/25/16 History hydrALAZINE [Apresoline TAB] 25 mg FEEDTUBE TID 12/29/16 12/29/16 Unknown History ALPRAZolam [Xanax TAB] 0.25 mg PO Q6H PRN #30 tablet 12/13/16 Unknown Rx Acetaminophen [Acetaminophen TAB] 650 mg PO Q6H PRN #30 tablet 12/13/16 Unknown Rx Antacid [Alum-Mag Hydrox-Simeth 30 ml PO Q4H PRN #30 oral.liqd 12/13/16 Unknown Rx [id number]] Apixaban [Eliquis] 5 mg PO Q12HR tablet 12/13/16 Unknown Rx Famotidine [Pepcid] 20 mg PO BID tablet 12/13/16 Unknown Rx HYDROcodone/APAP 5-325 [[place] 2 each PO Q6H PRN #30 tablet 12/13/16 Unknown Rx 5-325 mg TAB] Hyoscyamine Subl [Levsin Sl 0.125 0.125 mg SL Q4H PRN #30 tablet 12/13/16 Unknown Rx TAB] Magnesium Hydroxide [Milk of 30 ml PO Q4H PRN #30 oral.liqd 12/13/16 Unknown Rx Magnesia] Methadone [Dolophine] 20 mg PO DAILY #30 tablet 12/13/16 Unknown Rx Nystatin [Nystop Powder] 1 applic TP BID powder 12/13/16 Unknown Rx Active Meds: Active Medications Acetaminophen (Tylenol) 650 mg PO Q6H PRN PRN Reason: Pain MILD(1-3)/Fever >100.5/MONSIVAIS Last Admin: 01/07/17 12:52 Dose: 650 mg Al Hydrox/Mg Hydrox/Simethicone (Alum-Mag Hydrox-Simeth [id number]/5ml) 30 ml PO Q4H PRN PRN Reason: Indigestion Last Admin: 12/07/16 19:25 Dose: 30 ml Alprazolam (Xanax) 0.25 mg PO Q6H PRN PRN Reason: Anxiety Last Admin: 01/08/17 10:29 Dose: 0.25 mg Apixaban (Eliquis) 5 mg PO Q12HR BISHOP Last Admin: 01/08/17 10:27 Dose: 5 mg Dextrose (D50w (25gm)) 50 ml IV PRN PRN PRN Reason: Hypoglycemia Famotidine (Pepcid) 20 mg PO BID BISHOP Last Admin: 01/08/17 10:28 Dose: 20 mg Gabapentin (Neurontin) 300 mg PO QPM [facility] Last Admin: 01/07/17 17:20 Dose: 300 mg Hydromorphone HCl (Dilaudid) 2 mg PO Q4H PRN PRN Reason: Pain , Severe (7-10) Last Admin: 01/07/17 19:11 Dose: 2 mg Hydromorphone HCl (Dilaudid) 2 mg IM Q12H PRN PRN Reason: Pain Last Admin: 01/08/17 04:50 Dose: 2 mg Hyoscyamine (Levsin Sl) 0.125 mg SL Q4H PRN PRN Reason: Spasms Last Admin: 12/07/16 01:31 Dose: 0.125 mg Insulin Aspart (Novolog) 0 units SUB-Q [facility] PRN Reason: Protocol Last Admin: 01/08/17 07:52 Dose: Not Given Magnesium Hydroxide (Milk Of Magnesia) 30 ml PO Q4H PRN PRN Reason: Constipation Last Admin: 12/16/16 10:06 Dose: 30 ml Methadone HCl (Dolophine) 20 mg PO DAILY [facility] Last Admin: 01/08/17 10:27 Dose: 20 mg Morphine Sulfate (Morphine) 2 mg IV Q4H PRN PRN Reason: Pain, Moderate (4-6) Last Admin: 12/10/16 12:30 Dose: 2 mg Morphine Sulfate (Morphine) 4 mg IV Q4H PRN PRN Reason: Pain , Severe (7-10) Last Admin: 12/05/16 02:25 Dose: 4 mg Nystatin (Nystop) 1 applic TP BID [facility] Last Admin: 01/08/17 10:27 Dose: 1 applic Ondansetron HCl (Zofran) 4 mg IV Q4H PRN PRN Reason: N/V unrelieved by Reglan Last Admin: 11/27/16 09:21 Dose: 4 mg Oxycodone HCl (Roxicodone) 10 mg PO Q4H PRN PRN Reason: Pain, Moderate (4-6) Last Admin: 01/07/17 16:12 Dose: 10 mg Pantoprazole Sodium (Protonix) 40 mg PO BID [facility] Last Admin: 01/08/17 10:28 Dose: 40 mg Sucralfate (Carafate) 1 gm PO [facility] Last Admin: 01/08/17 08:53 Dose: 1 gm Physical Examination - Vital Signs Vital Signs: Vital Signs Pulse Resp 120 H 17 11/27/16 00:36 11/27/16 00:36 - Physical Exam Narrative exam: Patient is lying in bed in no apparent distress. Biateral upper extremities are 5 out of 5 bilateral lower extremities are 3-4 out of 5 mostly due to pain sensory exam to soft touch is intact reflexes are diminished. Unable to turn patient - Constitutional General appearance: comfortable Results - Laboratory Findings CBC and BMP: 12/26/16 05:21 12/26/16 05:21 Abnormal Lab Findings: Abnormal Labs 11/27/16 11/27/16 11/27/16 02:04 02:24 02:58 WBC 11.1 H RBC Hgb 11.6 L Hct MCV 83 L MCH 26 L MCHC 31 L RDW 17.0 H Plt Count Lymph % (Auto) [place] % (Auto) Eos % (Auto) Lymph # Seg Neutrophils % Seg Neuts % (Manual) Lymphocytes % (Manual) Monocytes % (Manual) 15.0 H Seg Neutrophils # Man Lymphocytes # (Manual) Monocytes # (Manual) 1.7 H PT INR APTT Fibrinogen Heparin Anti-Xa Level Sodium 133 L Potassium Chloride 96.4 L Carbon Dioxide 16 L D BUN 23 H Creatinine 0.5 L D Glucose 214 H POC Glucose 211 H Calcium AST ALT Total Protein Albumin Urine WBC (Auto) 11/27/16 11/27/16 11/27/16 02:58 06:20 06:20 WBC 13.2 H RBC Hgb 11.1 L Hct MCV 82 L MCH 26 L MCHC 31 L RDW 16.9 H Plt Count 472 H Lymph % (Auto) [place] % (Auto) Eos % (Auto) Lymph # Seg Neutrophils % Seg Neuts % (Manual) 82.0 H Lymphocytes % (Manual) 6.0 L Monocytes % (Manual) 9.0 H Seg Neutrophils # Man 10.8 H Lymphocytes # (Manual) 0.8 L Monocytes # (Manual) 1.2 H PT 15.9 H 18.5 H INR 1.28 H 1.54 H APTT 46.2 H Fibrinogen 603 H Heparin Anti-Xa Level Sodium Potassium Chloride Carbon Dioxide BUN Creatinine Glucose POC Glucose Calcium AST ALT Total Protein Albumin Urine WBC (Auto) 11/27/16 11/27/16 11/27/16 06:20 06:20 09:45 WBC 11.6 H RBC Hgb 11.2 L Hct 34.5 L MCV 81 L MCH 26 L MCHC RDW 17.0 H Plt Count Lymph % (Auto) [place] % (Auto) Eos % (Auto) Lymph # Seg Neutrophils % Seg Neuts % (Manual) 85.0 H Lymphocytes % (Manual) 3.0 L Monocytes % (Manual) Seg Neutrophils # Man 9.9 H Lymphocytes # (Manual) 0.3 L Monocytes # (Manual) PT INR APTT Fibrinogen Heparin Anti-Xa Level 0.99 H Sodium 136 L Potassium Chloride 96.6 L Carbon Dioxide 17 L BUN 23 H Creatinine 0.6 L Glucose 223 H POC Glucose Calcium AST ALT Total Protein Albumin Urine WBC (Auto) 11/27/16 11/27/16 11/27/16 15:01 17:00 17:00 WBC RBC Hgb 10.9 L Hct 33.2 L MCV 81 L MCH 27 L MCHC RDW 16.9 H Plt Count Lymph % (Auto) [place] % (Auto) Eos % (Auto) Lymph # Seg Neutrophils % Seg Neuts % (Manual) 80.0 H Lymphocytes % (Manual) 9.0 L Monocytes % (Manual) 9.0 H Seg Neutrophils # Man Lymphocytes # (Manual) 0.9 L Monocytes # (Manual) 0.9 H PT INR APTT Fibrinogen 533 H Heparin Anti-Xa Level 0.81 H Sodium Potassium Chloride Carbon Dioxide BUN Creatinine Glucose POC Glucose 254 H Calcium AST ALT Total Protein Albumin Urine WBC (Auto) 11/27/16 11/27/16 11/27/16 17:41 22:30 23:00 WBC RBC Hgb 10.0 L Hct 30.4 L MCV 82 L MCH 27 L MCHC RDW 17.0 H Plt Count Lymph % (Auto) [place] % (Auto) 8.2 H Eos % (Auto) Lymph # Seg Neutrophils % 75.1 H Seg Neuts % (Manual) Lymphocytes % (Manual) Monocytes % (Manual) Seg Neutrophils # Man Lymphocytes # (Manual) Monocytes # (Manual) PT INR APTT Fibrinogen Heparin Anti-Xa Level Sodium Potassium Chloride Carbon Dioxide BUN Creatinine Glucose POC Glucose 242 H 199 H Calcium AST ALT Total Protein Albumin Urine WBC (Auto) 11/28/16 11/28/16 11/28/16 05:00 05:00 05:00 WBC RBC Hgb 9.8 L Hct 30.0 L MCV 82 L MCH 27 L MCHC RDW 17.1 H Plt Count Lymph % (Auto) [place] % (Auto) 7.7 H Eos % (Auto) Lymph # 1.1 L Seg Neutrophils % 75.1 H Seg Neuts % (Manual) Lymphocytes % (Manual) Monocytes % (Manual) Seg Neutrophils # Man Lymphocytes # (Manual) Monocytes # (Manual) PT 19.7 H INR 1.67 H APTT 125.9 H* Fibrinogen Heparin Anti-Xa Level Sodium Potassium Chloride 107.3 H Carbon Dioxide 17 L BUN Creatinine 0.4 L Glucose 164 H POC Glucose Calcium 8.3 L AST ALT Total Protein Albumin Urine WBC (Auto) 11/28/16 11/28/16 11/28/16 07:40 14:00 14:00 WBC RBC Hgb Hct MCV MCH MCHC RDW Plt Count Lymph % (Auto) [place] % (Auto) Eos % (Auto) Lymph # Seg Neutrophils % Seg Neuts % (Manual) Lymphocytes % (Manual) Monocytes % (Manual) Seg Neutrophils # Man Lymphocytes # (Manual) Monocytes # (Manual) PT INR APTT 65.5 H* Fibrinogen Heparin Anti-Xa Level 0.23 L Sodium Potassium Chloride Carbon Dioxide BUN Creatinine Glucose POC Glucose 174 H Calcium AST ALT Total Protein Albumin Urine WBC (Auto) 11/28/16 11/28/16 11/28/16 16:12 21:40 21:48 WBC RBC 3.31 L Hgb 8.8 L Hct 27.0 L MCV 82 L MCH 27 L MCHC RDW 16.8 H Plt Count Lymph % (Auto) 12.9 L [place] % (Auto) 7.7 H Eos % (Auto) Lymph # 0.8 L Seg Neutrophils % 78.5 H Seg Neuts % (Manual) Lymphocytes % (Manual) Monocytes % (Manual) Seg Neutrophils # Man Lymphocytes # (Manual) Monocytes # (Manual) PT INR APTT Fibrinogen Heparin Anti-Xa Level Sodium Potassium Chloride Carbon Dioxide BUN Creatinine Glucose POC Glucose 144 H 153 H Calcium AST ALT Total Protein Albumin Urine WBC (Auto) 11/28/16 11/28/16 11/29/16 22:07 23:36 06:00 WBC RBC 3.18 L Hgb 8.6 L Hct 26.3 L MCV 83 L MCH 27 L MCHC RDW 16.6 H Plt Count Lymph % (Auto) [place] % (Auto) 8.5 H Eos % (Auto) Lymph # 0.9 L Seg Neutrophils % 73.5 H Seg Neuts % (Manual) Lymphocytes % (Manual) Monocytes % (Manual) Seg Neutrophils # Man Lymphocytes # (Manual) Monocytes # (Manual) PT INR APTT Fibrinogen Heparin Anti-Xa Level < 0.10 L Sodium Potassium Chloride Carbon Dioxide BUN Creatinine Glucose POC Glucose 158 H Calcium AST ALT Total Protein Albumin Urine WBC (Auto) 11/29/16 11/29/16 11/29/16 06:00 08:17 08:24 WBC RBC Hgb Hct MCV MCH MCHC RDW Plt Count Lymph % (Auto) [place] % (Auto) Eos % (Auto) Lymph # Seg Neutrophils % Seg Neuts % (Manual) Lymphocytes % (Manual) Monocytes % (Manual) Seg Neutrophils # Man Lymphocytes # (Manual) Monocytes # (Manual) PT INR APTT Fibrinogen Heparin Anti-Xa Level < 0.10 L Sodium Potassium 3.0 L Chloride 107.3 H Carbon Dioxide 19 L BUN Creatinine 0.3 L Glucose 116 H POC Glucose 115 H Calcium 8.2 L AST ALT Total Protein Albumin Urine WBC (Auto) 11/29/16 11/29/16 11/29/16 11:26 15:22 21:33 WBC RBC Hgb Hct MCV MCH MCHC RDW Plt Count Lymph % (Auto) [place] % (Auto) Eos % (Auto) Lymph # Seg Neutrophils % Seg Neuts % (Manual) Lymphocytes % (Manual) Monocytes % (Manual) Seg Neutrophils # Man Lymphocytes # (Manual) Monocytes # (Manual) PT INR APTT Fibrinogen Heparin Anti-Xa Level Sodium Potassium Chloride Carbon Dioxide BUN Creatinine Glucose POC Glucose 172 H 167 H 152 H Calcium AST ALT Total Protein Albumin Urine WBC (Auto) 11/30/16 11/30/16 11/30/16 01:30 04:18 04:18 WBC RBC 3.28 L Hgb 8.8 L Hct 27.3 L MCV 83 L MCH 27 L MCHC RDW 16.9 H Plt Count Lymph % (Auto) [place] % (Auto) 10.2 H Eos % (Auto) Lymph # 0.9 L Seg Neutrophils % 73.3 H Seg Neuts % (Manual) Lymphocytes % (Manual) Monocytes % (Manual) Seg Neutrophils # Man Lymphocytes # (Manual) Monocytes # (Manual) PT INR APTT Fibrinogen Heparin Anti-Xa Level < 0.10 L Sodium Potassium Chloride Carbon Dioxide 19 L BUN 8 L Creatinine 0.3 L Glucose 132 H POC Glucose Calcium 7.9 L AST ALT Total Protein Albumin Urine WBC (Auto) 11/30/16 11/30/16 11/30/16 04:18 07:32 09:27 WBC RBC Hgb Hct MCV MCH MCHC RDW Plt Count Lymph % (Auto) [place] % (Auto) Eos % (Auto) Lymph # Seg Neutrophils % Seg Neuts % (Manual) Lymphocytes % (Manual) Monocytes % (Manual) Seg Neutrophils # Man Lymphocytes # (Manual) Monocytes # (Manual) PT INR APTT 50.1 H Fibrinogen Heparin Anti-Xa Level Sodium Potassium Chloride Carbon Dioxide BUN Creatinine Glucose POC Glucose 125 H Calcium AST 287 H ALT 841 H Total Protein 6.0 L Albumin 2.7 L Urine WBC (Auto) 11/30/16 11/30/16 11/30/16 11:27 16:49 17:15 WBC RBC Hgb Hct MCV MCH MCHC RDW Plt Count Lymph % (Auto) [place] % (Auto) Eos % (Auto) Lymph # Seg Neutrophils % Seg Neuts % (Manual) Lymphocytes % (Manual) Monocytes % (Manual) Seg Neutrophils # Man Lymphocytes # (Manual) Monocytes # (Manual) PT 23.9 H INR 2.13 H APTT 55.4 H Fibrinogen Heparin Anti-Xa Level Sodium Potassium Chloride Carbon Dioxide BUN Creatinine Glucose POC Glucose 161 H 140 H Calcium AST ALT Total Protein Albumin Urine WBC (Auto) 11/30/16 11/30/16 11/30/16 20:48 23:00 Unknown WBC RBC Hgb Hct MCV MCH MCHC RDW Plt Count Lymph % (Auto) [place] % (Auto) Eos % (Auto) Lymph # Seg Neutrophils % Seg Neuts % (Manual) Lymphocytes % (Manual) Monocytes % (Manual) Seg Neutrophils # Man Lymphocytes # (Manual) Monocytes # (Manual) PT INR APTT 151.3 H* Fibrinogen Heparin Anti-Xa Level 0.14 L Sodium Potassium Chloride Carbon Dioxide BUN Creatinine Glucose POC Glucose 157 H Calcium AST ALT Total Protein Albumin Urine WBC (Auto) 11/30/16 12/01/16 12/01/16 Unknown 04:00 07:16 WBC RBC 3.45 L Hgb 9.1 L Hct 28.4 L MCV 82 L MCH 26 L MCHC RDW 17.2 H Plt Count Lymph % (Auto) [place] % (Auto) 10.8 H Eos % (Auto) Lymph # 0.9 L Seg Neutrophils % Seg Neuts % (Manual) Lymphocytes % (Manual) Monocytes % (Manual) Seg Neutrophils # Man Lymphocytes # (Manual) Monocytes # (Manual) PT INR APTT 70.3 H* Fibrinogen Heparin Anti-Xa Level Sodium Potassium Chloride Carbon Dioxide BUN Creatinine Glucose POC Glucose Calcium AST ALT Total Protein Albumin Urine WBC (Auto) 19.0 H 12/01/16 12/01/16 12/01/16 10:30 18:26 22:33 WBC RBC Hgb Hct MCV MCH MCHC RDW Plt Count Lymph % (Auto) [place] % (Auto) Eos % (Auto) Lymph # Seg Neutrophils % Seg Neuts % (Manual) Lymphocytes % (Manual) Monocytes % (Manual) Seg Neutrophils # Man Lymphocytes # (Manual) Monocytes # (Manual) PT INR APTT 52.8 H Fibrinogen Heparin Anti-Xa Level Sodium Potassium Chloride Carbon Dioxide BUN Creatinine Glucose POC Glucose 176 H 164 H Calcium AST ALT Total Protein Albumin Urine WBC (Auto) 12/02/16 12/02/16 12/02/16 06:48 08:21 13:24 WBC RBC Hgb Hct MCV MCH MCHC RDW Plt Count Lymph % (Auto) [place] % (Auto) Eos % (Auto) Lymph # Seg Neutrophils % Seg Neuts % (Manual) Lymphocytes % (Manual) Monocytes % (Manual) Seg Neutrophils # Man Lymphocytes # (Manual) Monocytes # (Manual) PT INR APTT 52.1 H Fibrinogen Heparin Anti-Xa Level Sodium Potassium Chloride Carbon Dioxide BUN Creatinine Glucose POC Glucose 126 H 123 H Calcium AST ALT Total Protein Albumin Urine WBC (Auto) 12/02/16 12/02/16 12/02/16 14:58 17:09 21:30 WBC RBC Hgb Hct MCV MCH MCHC RDW Plt Count Lymph % (Auto) [place] % (Auto) Eos % (Auto) Lymph # Seg Neutrophils % Seg Neuts % (Manual) Lymphocytes % (Manual) Monocytes % (Manual) Seg Neutrophils # Man Lymphocytes # (Manual) Monocytes # (Manual) PT INR APTT 69.4 H* Fibrinogen Heparin Anti-Xa Level Sodium Potassium Chloride Carbon Dioxide BUN Creatinine Glucose POC Glucose 149 H 145 H Calcium AST ALT Total Protein Albumin Urine WBC (Auto) 12/02/16 12/03/16 12/03/16 22:00 05:00 05:00 WBC RBC Hgb 10.1 L Hct 31.0 L MCV MCH MCHC RDW Plt Count Lymph % (Auto) [place] % (Auto) Eos % (Auto) Lymph # Seg Neutrophils % Seg Neuts % (Manual) Lymphocytes % (Manual) Monocytes % (Manual) Seg Neutrophils # Man Lymphocytes # (Manual) Monocytes # (Manual) PT INR APTT 54.6 H Fibrinogen Heparin Anti-Xa Level Sodium Potassium 2.8 L* D Chloride Carbon Dioxide BUN 4 L Creatinine 0.2 L Glucose 107 H POC Glucose Calcium AST ALT 142 H Total Protein 5.7 L Albumin 2.6 L Urine WBC (Auto) 12/03/16 12/03/16 12/03/16 05:00 08:24 12:45 WBC RBC Hgb Hct MCV MCH MCHC RDW Plt Count Lymph % (Auto) [place] % (Auto) Eos % (Auto) Lymph # Seg Neutrophils % Seg Neuts % (Manual) Lymphocytes % (Manual) Monocytes % (Manual) Seg Neutrophils # Man Lymphocytes # (Manual) Monocytes # (Manual) PT INR APTT 117.3 H* Fibrinogen Heparin Anti-Xa Level Sodium Potassium Chloride Carbon Dioxide BUN Creatinine Glucose POC Glucose 111 H 148 H Calcium AST ALT Total Protein Albumin Urine WBC (Auto) 12/03/16 12/03/16 12/03/16 13:56 16:49 19:34 WBC RBC Hgb Hct MCV MCH MCHC RDW Plt Count Lymph % (Auto) [place] % (Auto) Eos % (Auto) Lymph # Seg Neutrophils % Seg Neuts % (Manual) Lymphocytes % (Manual) Monocytes % (Manual) Seg Neutrophils # Man Lymphocytes # (Manual) Monocytes # (Manual) PT INR APTT 61.5 H* 174.7 H* Fibrinogen Heparin Anti-Xa Level Sodium Potassium Chloride Carbon Dioxide BUN Creatinine Glucose POC Glucose 146 H Calcium AST ALT Total Protein Albumin Urine WBC (Auto) 12/03/16 12/04/16 12/04/16 21:48 00:45 05:00 WBC RBC Hgb 10.1 L Hct 31.5 L MCV 82 L MCH 26 L MCHC RDW 17.6 H Plt Count Lymph % (Auto) [place] % (Auto) 10.4 H Eos % (Auto) Lymph # Seg Neutrophils % Seg Neuts % (Manual) Lymphocytes % (Manual) Monocytes % (Manual) Seg Neutrophils # Man Lymphocytes # (Manual) Monocytes # (Manual) PT INR APTT 41.3 H Fibrinogen Heparin Anti-Xa Level Sodium Potassium Chloride Carbon Dioxide BUN Creatinine Glucose POC Glucose 128 H Calcium AST ALT Total Protein Albumin Urine WBC (Auto) 12/04/16 12/04/16 12/04/16 05:00 05:00 12:21 WBC RBC Hgb Hct MCV MCH MCHC RDW Plt Count Lymph % (Auto) [place] % (Auto) Eos % (Auto) Lymph # Seg Neutrophils % Seg Neuts % (Manual) Lymphocytes % (Manual) Monocytes % (Manual) Seg Neutrophils # Man Lymphocytes # (Manual) Monocytes # (Manual) PT INR APTT 51.7 H Fibrinogen Heparin Anti-Xa Level Sodium Potassium 3.4 L D Chloride 107.2 H Carbon Dioxide BUN 5 L Creatinine 0.2 L Glucose 114 H POC Glucose 128 H Calcium AST ALT Total Protein Albumin Urine WBC (Auto) 12/04/16 12/04/16 12/04/16 15:32 16:00 19:53 WBC RBC Hgb Hct MCV MCH MCHC RDW Plt Count Lymph % (Auto) [place] % (Auto) Eos % (Auto) Lymph # Seg Neutrophils % Seg Neuts % (Manual) Lymphocytes % (Manual) Monocytes % (Manual) Seg Neutrophils # Man Lymphocytes # (Manual) Monocytes # (Manual) PT INR APTT 81.1 H* Fibrinogen Heparin Anti-Xa Level Sodium Potassium Chloride Carbon Dioxide BUN Creatinine Glucose POC Glucose 115 H 159 H Calcium AST ALT Total Protein Albumin Urine WBC (Auto) 12/04/16 12/05/16 12/05/16 Unknown 06:48 06:48 WBC RBC Hgb 9.8 L Hct 30.5 L MCV 82 L MCH 26 L MCHC RDW 17.2 H Plt Count Lymph % (Auto) [place] % (Auto) Eos % (Auto) Lymph # Seg Neutrophils % Seg Neuts % (Manual) Lymphocytes % (Manual) Monocytes % (Manual) Seg Neutrophils # Man Lymphocytes # (Manual) Monocytes # (Manual) PT INR APTT 62.0 H* Fibrinogen Heparin Anti-Xa Level Sodium Potassium 3.3 L Chloride Carbon Dioxide BUN 5 L Creatinine 0.2 L Glucose 140 H POC Glucose Calcium 8.2 L AST ALT Total Protein Albumin Urine WBC (Auto) 12/05/16 12/05/16 12/05/16 07:22 12:03 16:32 WBC RBC Hgb Hct MCV MCH MCHC RDW Plt Count Lymph % (Auto) [place] % (Auto) Eos % (Auto) Lymph # Seg Neutrophils % Seg Neuts % (Manual) Lymphocytes % (Manual) Monocytes % (Manual) Seg Neutrophils # Man Lymphocytes # (Manual) Monocytes # (Manual) PT INR APTT Fibrinogen Heparin Anti-Xa Level Sodium Potassium Chloride Carbon Dioxide BUN Creatinine Glucose POC Glucose 122 H 138 H 145 H Calcium AST ALT Total Protein Albumin Urine WBC (Auto) 12/05/16 12/06/16 12/06/16 21:41 07:56 11:21 WBC RBC Hgb Hct MCV MCH MCHC RDW Plt Count Lymph % (Auto) [place] % (Auto) Eos % (Auto) Lymph # Seg Neutrophils % Seg Neuts % (Manual) Lymphocytes % (Manual) Monocytes % (Manual) Seg Neutrophils # Man Lymphocytes # (Manual) Monocytes # (Manual) PT INR APTT Fibrinogen Heparin Anti-Xa Level Sodium Potassium Chloride Carbon Dioxide BUN Creatinine Glucose POC Glucose 137 H 122 H 150 H Calcium AST ALT Total Protein Albumin Urine WBC (Auto) 12/06/16 12/07/16 12/07/16 20:25 06:32 06:32 WBC RBC Hgb 10.4 L Hct 32.1 L MCV 81 L MCH 26 L MCHC RDW 17.3 H Plt Count Lymph % (Auto) [place] % (Auto) 11.5 H Eos % (Auto) Lymph # Seg Neutrophils % Seg Neuts % (Manual) Lymphocytes % (Manual) Monocytes % (Manual) Seg Neutrophils # Man Lymphocytes # (Manual) Monocytes # (Manual) PT INR APTT Fibrinogen Heparin Anti-Xa Level Sodium Potassium Chloride Carbon Dioxide BUN 4 L Creatinine 0.2 L Glucose POC Glucose 172 H Calcium AST ALT Total Protein 6.2 L Albumin 2.9 L Urine WBC (Auto) 12/07/16 12/07/16 12/07/16 12:28 16:42 21:00 WBC RBC Hgb Hct MCV MCH MCHC RDW Plt Count Lymph % (Auto) [place] % (Auto) Eos % (Auto) Lymph # Seg Neutrophils % Seg Neuts % (Manual) Lymphocytes % (Manual) Monocytes % (Manual) Seg Neutrophils # Man Lymphocytes # (Manual) Monocytes # (Manual) PT INR APTT Fibrinogen Heparin Anti-Xa Level Sodium Potassium Chloride Carbon Dioxide BUN Creatinine Glucose POC Glucose 123 H 115 H 125 H Calcium AST ALT Total Protein Albumin Urine WBC (Auto) 12/08/16 12/08/16 12/08/16 11:13 16:41 19:47 WBC RBC Hgb Hct MCV MCH MCHC RDW Plt Count Lymph % (Auto) [place] % (Auto) Eos % (Auto) Lymph # Seg Neutrophils % Seg Neuts % (Manual) Lymphocytes % (Manual) Monocytes % (Manual) Seg Neutrophils # Man Lymphocytes # (Manual) Monocytes # (Manual) PT INR APTT Fibrinogen Heparin Anti-Xa Level Sodium Potassium Chloride Carbon Dioxide BUN Creatinine Glucose POC Glucose 125 H 139 H 142 H Calcium AST ALT Total Protein Albumin Urine WBC (Auto) 12/09/16 12/09/16 12/09/16 12:32 16:41 19:44 WBC RBC Hgb Hct MCV MCH MCHC RDW Plt Count Lymph % (Auto) [place] % (Auto) Eos % (Auto) Lymph # Seg Neutrophils % Seg Neuts % (Manual) Lymphocytes % (Manual) Monocytes % (Manual) Seg Neutrophils # Man Lymphocytes # (Manual) Monocytes # (Manual) PT INR APTT Fibrinogen Heparin Anti-Xa Level Sodium Potassium Chloride Carbon Dioxide BUN Creatinine Glucose POC Glucose 132 H 130 H 166 H Calcium AST ALT Total Protein Albumin Urine WBC (Auto) 12/10/16 12/10/16 12/10/16 08:14 11:41 15:32 WBC RBC Hgb Hct MCV MCH MCHC RDW Plt Count Lymph % (Auto) [place] % (Auto) Eos % (Auto) Lymph # Seg Neutrophils % Seg Neuts % (Manual) Lymphocytes % (Manual) Monocytes % (Manual) Seg Neutrophils # Man Lymphocytes # (Manual) Monocytes # (Manual) PT INR APTT Fibrinogen Heparin Anti-Xa Level Sodium Potassium Chloride Carbon Dioxide BUN Creatinine Glucose POC Glucose 150 H 137 H 150 H Calcium AST ALT Total Protein Albumin Urine WBC (Auto) 12/10/16 12/11/16 12/11/16 21:59 07:20 12:05 WBC RBC Hgb Hct MCV MCH MCHC RDW Plt Count Lymph % (Auto) [place] % (Auto) Eos % (Auto) Lymph # Seg Neutrophils % Seg Neuts % (Manual) Lymphocytes % (Manual) Monocytes % (Manual) Seg Neutrophils # Man Lymphocytes # (Manual) Monocytes # (Manual) PT INR APTT Fibrinogen Heparin Anti-Xa Level Sodium Potassium Chloride Carbon Dioxide BUN Creatinine Glucose POC Glucose 116 H 109 H 142 H Calcium AST ALT Total Protein Albumin Urine WBC (Auto) 12/11/16 12/11/16 12/12/16 15:41 23:23 09:06 WBC RBC Hgb Hct MCV MCH MCHC RDW Plt Count Lymph % (Auto) [place] % (Auto) Eos % (Auto) Lymph # Seg Neutrophils % Seg Neuts % (Manual) Lymphocytes % (Manual) Monocytes % (Manual) Seg Neutrophils # Man Lymphocytes # (Manual) Monocytes # (Manual) PT INR APTT Fibrinogen Heparin Anti-Xa Level Sodium Potassium Chloride Carbon Dioxide BUN Creatinine Glucose POC Glucose 133 H 154 H 152 H Calcium AST ALT Total Protein Albumin Urine WBC (Auto) 12/12/16 12/12/16 12/12/16 11:59 18:34 21:27 WBC RBC Hgb Hct MCV MCH MCHC RDW Plt Count Lymph % (Auto) [place] % (Auto) Eos % (Auto) Lymph # Seg Neutrophils % Seg Neuts % (Manual) Lymphocytes % (Manual) Monocytes % (Manual) Seg Neutrophils # Man Lymphocytes # (Manual) Monocytes # (Manual) PT INR APTT Fibrinogen Heparin Anti-Xa Level Sodium Potassium Chloride Carbon Dioxide BUN Creatinine Glucose POC Glucose 117 H 159 H 158 H Calcium AST ALT Total Protein Albumin Urine WBC (Auto) 12/13/16 12/13/16 12/13/16 07:24 12:30 15:53 WBC RBC Hgb Hct MCV MCH MCHC RDW Plt Count Lymph % (Auto) [place] % (Auto) Eos % (Auto) Lymph # Seg Neutrophils % Seg Neuts % (Manual) Lymphocytes % (Manual) Monocytes % (Manual) Seg Neutrophils # Man Lymphocytes # (Manual) Monocytes # (Manual) PT INR APTT Fibrinogen Heparin Anti-Xa Level Sodium Potassium Chloride Carbon Dioxide BUN Creatinine Glucose POC Glucose 114 H 146 H 151 H Calcium AST ALT Total Protein Albumin Urine WBC (Auto) 12/13/16 12/14/16 12/14/16 21:39 12:08 16:47 WBC RBC Hgb Hct MCV MCH MCHC RDW Plt Count Lymph % (Auto) [place] % (Auto) Eos % (Auto) Lymph # Seg Neutrophils % Seg Neuts % (Manual) Lymphocytes % (Manual) Monocytes % (Manual) Seg Neutrophils # Man Lymphocytes # (Manual) Monocytes # (Manual) PT INR APTT Fibrinogen Heparin Anti-Xa Level Sodium Potassium Chloride Carbon Dioxide BUN Creatinine Glucose POC Glucose 130 H 144 H 126 H Calcium AST ALT Total Protein Albumin Urine WBC (Auto) 12/14/16 12/15/16 12/15/16 21:35 08:49 12:53 WBC RBC Hgb Hct MCV MCH MCHC RDW Plt Count Lymph % (Auto) [place] % (Auto) Eos % (Auto) Lymph # Seg Neutrophils % Seg Neuts % (Manual) Lymphocytes % (Manual) Monocytes % (Manual) Seg Neutrophils # Man Lymphocytes # (Manual) Monocytes # (Manual) PT INR APTT Fibrinogen Heparin Anti-Xa Level Sodium Potassium Chloride Carbon Dioxide BUN Creatinine Glucose POC Glucose 115 H 119 H 163 H Calcium AST ALT Total Protein Albumin Urine WBC (Auto) 12/15/16 12/15/16 12/16/16 17:10 21:28 09:04 WBC RBC Hgb Hct MCV MCH MCHC RDW Plt Count Lymph % (Auto) [place] % (Auto) Eos % (Auto) Lymph # Seg Neutrophils % Seg Neuts % (Manual) Lymphocytes % (Manual) Monocytes % (Manual) Seg Neutrophils # Man Lymphocytes # (Manual) Monocytes # (Manual) PT INR APTT Fibrinogen Heparin Anti-Xa Level Sodium Potassium Chloride Carbon Dioxide BUN Creatinine Glucose POC Glucose 152 H 157 H 124 H Calcium AST ALT Total Protein Albumin Urine WBC (Auto) 12/16/16 12/16/16 12/16/16 11:57 16:29 23:17 WBC RBC Hgb Hct MCV MCH MCHC RDW Plt Count Lymph % (Auto) [place] % (Auto) Eos % (Auto) Lymph # Seg Neutrophils % Seg Neuts % (Manual) Lymphocytes % (Manual) Monocytes % (Manual) Seg Neutrophils # Man Lymphocytes # (Manual) Monocytes # (Manual) PT INR APTT Fibrinogen Heparin Anti-Xa Level Sodium Potassium Chloride Carbon Dioxide BUN Creatinine Glucose POC Glucose 149 H 129 H 115 H Calcium AST ALT Total Protein Albumin Urine WBC (Auto) 12/17/16 12/17/16 12/17/16 08:34 12:47 17:46 WBC RBC Hgb Hct MCV MCH MCHC RDW Plt Count Lymph % (Auto) [place] % (Auto) Eos % (Auto) Lymph # Seg Neutrophils % Seg Neuts % (Manual) Lymphocytes % (Manual) Monocytes % (Manual) Seg Neutrophils # Man Lymphocytes # (Manual) Monocytes # (Manual) PT INR APTT Fibrinogen Heparin Anti-Xa Level Sodium Potassium Chloride Carbon Dioxide BUN Creatinine Glucose POC Glucose 106 H 142 H 136 H Calcium AST ALT Total Protein Albumin Urine WBC (Auto) 12/17/16 12/18/16 12/18/16 21:28 08:25 12:19 WBC RBC Hgb Hct MCV MCH MCHC RDW Plt Count Lymph % (Auto) [place] % (Auto) Eos % (Auto) Lymph # Seg Neutrophils % Seg Neuts % (Manual) Lymphocytes % (Manual) Monocytes % (Manual) Seg Neutrophils # Man Lymphocytes # (Manual) Monocytes # (Manual) PT INR APTT Fibrinogen Heparin Anti-Xa Level Sodium Potassium Chloride Carbon Dioxide BUN Creatinine Glucose POC Glucose 131 H 125 H 138 H Calcium AST ALT Total Protein Albumin Urine WBC (Auto) 12/18/16 12/18/16 12/19/16 15:38 20:58 07:20 WBC RBC Hgb Hct MCV MCH MCHC RDW Plt Count Lymph % (Auto) [place] % (Auto) Eos % (Auto) Lymph # Seg Neutrophils % Seg Neuts % (Manual) Lymphocytes % (Manual) Monocytes % (Manual) Seg Neutrophils # Man Lymphocytes # (Manual) Monocytes # (Manual) PT INR APTT Fibrinogen Heparin Anti-Xa Level Sodium Potassium Chloride Carbon Dioxide BUN Creatinine Glucose POC Glucose 123 H 166 H 143 H Calcium AST ALT Total Protein Albumin Urine WBC (Auto) 12/19/16 12/19/16 12/19/16 11:44 15:14 20:01 WBC RBC Hgb Hct MCV MCH MCHC RDW Plt Count Lymph % (Auto) [place] % (Auto) Eos % (Auto) Lymph # Seg Neutrophils % Seg Neuts % (Manual) Lymphocytes % (Manual) Monocytes % (Manual) Seg Neutrophils # Man Lymphocytes # (Manual) Monocytes # (Manual) PT INR APTT Fibrinogen Heparin Anti-Xa Level Sodium Potassium Chloride Carbon Dioxide BUN Creatinine Glucose POC Glucose 146 H 150 H 151 H Calcium AST ALT Total Protein Albumin Urine WBC (Auto) 12/20/16 12/20/16 12/20/16 08:14 13:11 17:33 WBC RBC Hgb Hct MCV MCH MCHC RDW Plt Count Lymph % (Auto) [place] % (Auto) Eos % (Auto) Lymph # Seg Neutrophils % Seg Neuts % (Manual) Lymphocytes % (Manual) Monocytes % (Manual) Seg Neutrophils # Man Lymphocytes # (Manual) Monocytes # (Manual) PT INR APTT Fibrinogen Heparin Anti-Xa Level Sodium Potassium Chloride Carbon Dioxide BUN Creatinine Glucose POC Glucose 120 H 153 H 115 H Calcium AST ALT Total Protein Albumin Urine WBC (Auto) 12/21/16 12/21/16 12/21/16 08:27 12:37 17:06 WBC RBC Hgb Hct MCV MCH MCHC RDW Plt Count Lymph % (Auto) [place] % (Auto) Eos % (Auto) Lymph # Seg Neutrophils % Seg Neuts % (Manual) Lymphocytes % (Manual) Monocytes % (Manual) Seg Neutrophils # Man Lymphocytes # (Manual) Monocytes # (Manual) PT INR APTT Fibrinogen Heparin Anti-Xa Level Sodium Potassium Chloride Carbon Dioxide BUN Creatinine Glucose POC Glucose 117 H 131 H 131 H Calcium AST ALT Total Protein Albumin Urine WBC (Auto) 12/21/16 12/22/16 12/22/16 21:51 08:30 11:51 WBC RBC Hgb Hct MCV MCH MCHC RDW Plt Count Lymph % (Auto) [place] % (Auto) Eos % (Auto) Lymph # Seg Neutrophils % Seg Neuts % (Manual) Lymphocytes % (Manual) Monocytes % (Manual) Seg Neutrophils # Man Lymphocytes # (Manual) Monocytes # (Manual) PT INR APTT Fibrinogen Heparin Anti-Xa Level Sodium Potassium Chloride Carbon Dioxide BUN Creatinine Glucose POC Glucose 140 H 118 H 186 H Calcium AST ALT Total Protein Albumin Urine WBC (Auto) 12/22/16 12/22/16 12/23/16 16:34 21:30 08:38 WBC RBC Hgb Hct MCV MCH MCHC RDW Plt Count Lymph % (Auto) [place] % (Auto) Eos % (Auto) Lymph # Seg Neutrophils % Seg Neuts % (Manual) Lymphocytes % (Manual) Monocytes % (Manual) Seg Neutrophils # Man Lymphocytes # (Manual) Monocytes # (Manual) PT INR APTT Fibrinogen Heparin Anti-Xa Level Sodium Potassium Chloride Carbon Dioxide BUN Creatinine Glucose POC Glucose 109 H 127 H 114 H Calcium AST ALT Total Protein Albumin Urine WBC (Auto) 12/23/16 12/23/16 12/23/16 12:43 17:03 22:12 WBC RBC Hgb Hct MCV MCH MCHC RDW Plt Count Lymph % (Auto) [place] % (Auto) Eos % (Auto) Lymph # Seg Neutrophils % Seg Neuts % (Manual) Lymphocytes % (Manual) Monocytes % (Manual) Seg Neutrophils # Man Lymphocytes # (Manual) Monocytes # (Manual) PT INR APTT Fibrinogen Heparin Anti-Xa Level Sodium Potassium Chloride Carbon Dioxide BUN Creatinine Glucose POC Glucose 129 H 120 H 133 H Calcium AST ALT Total Protein Albumin Urine WBC (Auto) 12/24/16 12/24/16 12/24/16 07:11 12:09 16:26 WBC RBC Hgb Hct MCV MCH MCHC RDW Plt Count Lymph % (Auto) [place] % (Auto) Eos % (Auto) Lymph # Seg Neutrophils % Seg Neuts % (Manual) Lymphocytes % (Manual) Monocytes % (Manual) Seg Neutrophils # Man Lymphocytes # (Manual) Monocytes # (Manual) PT INR APTT Fibrinogen Heparin Anti-Xa Level Sodium Potassium Chloride Carbon Dioxide BUN Creatinine Glucose POC Glucose 116 H 148 H 106 H Calcium AST ALT Total Protein Albumin Urine WBC (Auto) 12/24/16 12/25/16 12/25/16 21:57 08:20 13:31 WBC RBC Hgb Hct MCV MCH MCHC RDW Plt Count Lymph % (Auto) [place] % (Auto) Eos % (Auto) Lymph # Seg Neutrophils % Seg Neuts % (Manual) Lymphocytes % (Manual) Monocytes % (Manual) Seg Neutrophils # Man Lymphocytes # (Manual) Monocytes # (Manual) PT INR APTT Fibrinogen Heparin Anti-Xa Level Sodium Potassium Chloride Carbon Dioxide BUN Creatinine Glucose POC Glucose 108 H 112 H 129 H Calcium AST ALT Total Protein Albumin Urine WBC (Auto) 12/25/16 12/25/16 12/26/16 17:28 21:04 05:21 WBC RBC Hgb 10.7 L Hct 33.4 L MCV 81 L MCH 26 L MCHC RDW 16.6 H Plt Count Lymph % (Auto) [place] % (Auto) 13.5 H Eos % (Auto) 6.9 H Lymph # Seg Neutrophils % Seg Neuts % (Manual) Lymphocytes % (Manual) Monocytes % (Manual) Seg Neutrophils # Man Lymphocytes # (Manual) Monocytes # (Manual) PT INR APTT Fibrinogen Heparin Anti-Xa Level Sodium Potassium Chloride Carbon Dioxide BUN Creatinine Glucose POC Glucose 129 H 150 H Calcium AST ALT Total Protein Albumin Urine WBC (Auto) 12/26/16 12/26/16 12/26/16 05:21 07:11 11:15 WBC RBC Hgb Hct MCV MCH MCHC RDW Plt Count Lymph % (Auto) [place] % (Auto) Eos % (Auto) Lymph # Seg Neutrophils % Seg Neuts % (Manual) Lymphocytes % (Manual) Monocytes % (Manual) Seg Neutrophils # Man Lymphocytes # (Manual) Monocytes # (Manual) PT INR APTT Fibrinogen Heparin Anti-Xa Level Sodium Potassium Chloride Carbon Dioxide BUN Creatinine 0.4 L Glucose 124 H POC Glucose 114 H 181 H Calcium AST ALT Total Protein Albumin Urine WBC (Auto) 12/26/16 12/26/16 12/26/16 11:52 16:01 22:04 WBC RBC Hgb Hct MCV MCH MCHC RDW Plt Count Lymph % (Auto) [place] % (Auto) Eos % (Auto) Lymph # Seg Neutrophils % Seg Neuts % (Manual) Lymphocytes % (Manual) Monocytes % (Manual) Seg Neutrophils # Man Lymphocytes # (Manual) Monocytes # (Manual) PT INR APTT Fibrinogen Heparin Anti-Xa Level Sodium Potassium Chloride Carbon Dioxide BUN Creatinine Glucose POC Glucose 150 H 114 H 127 H Calcium AST ALT Total Protein Albumin Urine WBC (Auto) 12/27/16 12/27/16 12/27/16 07:41 12:08 16:49 WBC RBC Hgb Hct MCV MCH MCHC RDW Plt Count Lymph % (Auto) [place] % (Auto) Eos % (Auto) Lymph # Seg Neutrophils % Seg Neuts % (Manual) Lymphocytes % (Manual) Monocytes % (Manual) Seg Neutrophils # Man Lymphocytes # (Manual) Monocytes # (Manual) PT INR APTT Fibrinogen Heparin Anti-Xa Level Sodium Potassium Chloride Carbon Dioxide BUN Creatinine Glucose POC Glucose 127 H 128 H 124 H Calcium AST ALT Total Protein Albumin Urine WBC (Auto) 12/27/16 12/28/16 12/28/16 21:01 05:09 12:06 WBC RBC Hgb Hct MCV MCH MCHC RDW Plt Count Lymph % (Auto) [place] % (Auto) Eos % (Auto) Lymph # Seg Neutrophils % Seg Neuts % (Manual) Lymphocytes % (Manual) Monocytes % (Manual) Seg Neutrophils # Man Lymphocytes # (Manual) Monocytes # (Manual) PT INR APTT Fibrinogen Heparin Anti-Xa Level Sodium Potassium Chloride Carbon Dioxide BUN Creatinine Glucose POC Glucose 108 H 110 H 144 H Calcium AST ALT Total Protein Albumin Urine WBC (Auto) 12/28/16 12/28/16 12/29/16 17:06 21:02 05:55 WBC RBC Hgb Hct MCV MCH MCHC RDW Plt Count Lymph % (Auto) [place] % (Auto) Eos % (Auto) Lymph # Seg Neutrophils % Seg Neuts % (Manual) Lymphocytes % (Manual) Monocytes % (Manual) Seg Neutrophils # Man Lymphocytes # (Manual) Monocytes # (Manual) PT INR APTT Fibrinogen Heparin Anti-Xa Level Sodium Potassium Chloride Carbon Dioxide BUN Creatinine Glucose POC Glucose 133 H 152 H 126 H Calcium AST ALT Total Protein Albumin Urine WBC (Auto) 12/29/16 12/29/16 12/29/16 11:31 16:23 21:12 WBC RBC Hgb Hct MCV MCH MCHC RDW Plt Count Lymph % (Auto) [place] % (Auto) Eos % (Auto) Lymph # Seg Neutrophils % Seg Neuts % (Manual) Lymphocytes % (Manual) Monocytes % (Manual) Seg Neutrophils # Man Lymphocytes # (Manual) Monocytes # (Manual) PT INR APTT Fibrinogen Heparin Anti-Xa Level Sodium Potassium Chloride Carbon Dioxide BUN Creatinine Glucose POC Glucose 115 H 133 H 140 H Calcium AST ALT Total Protein Albumin Urine WBC (Auto) 12/30/16 12/30/16 12/30/16 05:48 11:25 15:49 WBC RBC Hgb Hct MCV MCH MCHC RDW Plt Count Lymph % (Auto) [place] % (Auto) Eos % (Auto) Lymph # Seg Neutrophils % Seg Neuts % (Manual) Lymphocytes % (Manual) Monocytes % (Manual) Seg Neutrophils # Man Lymphocytes # (Manual) Monocytes # (Manual) PT INR APTT Fibrinogen Heparin Anti-Xa Level Sodium Potassium Chloride Carbon Dioxide BUN Creatinine Glucose POC Glucose 131 H 191 H 124 H Calcium AST ALT Total Protein Albumin Urine WBC (Auto) 12/30/16 12/31/16 12/31/16 20:59 06:26 11:30 WBC RBC Hgb Hct MCV MCH MCHC RDW Plt Count Lymph % (Auto) [place] % (Auto) Eos % (Auto) Lymph # Seg Neutrophils % Seg Neuts % (Manual) Lymphocytes % (Manual) Monocytes % (Manual) Seg Neutrophils # Man Lymphocytes # (Manual) Monocytes # (Manual) PT INR APTT Fibrinogen Heparin Anti-Xa Level Sodium Potassium Chloride Carbon Dioxide BUN Creatinine Glucose POC Glucose 144 H 129 H Calcium AST ALT Total Protein Albumin Urine WBC (Auto) > 182.0 H 12/31/16 12/31/16 12/31/16 11:34 16:45 21:37 WBC RBC Hgb Hct MCV MCH MCHC RDW Plt Count Lymph % (Auto) [place] % (Auto) Eos % (Auto) Lymph # Seg Neutrophils % Seg Neuts % (Manual) Lymphocytes % (Manual) Monocytes % (Manual) Seg Neutrophils # Man Lymphocytes # (Manual) Monocytes # (Manual) PT INR APTT Fibrinogen Heparin Anti-Xa Level Sodium Potassium Chloride Carbon Dioxide BUN Creatinine Glucose POC Glucose 165 H 122 H 127 H Calcium AST ALT Total Protein Albumin Urine WBC (Auto) 01/01/17 01/01/17 01/01/17 06:39 11:18 16:09 WBC RBC Hgb Hct MCV MCH MCHC RDW Plt Count Lymph % (Auto) [place] % (Auto) Eos % (Auto) Lymph # Seg Neutrophils % Seg Neuts % (Manual) Lymphocytes % (Manual) Monocytes % (Manual) Seg Neutrophils # Man Lymphocytes # (Manual) Monocytes # (Manual) PT INR APTT Fibrinogen Heparin Anti-Xa Level Sodium Potassium Chloride Carbon Dioxide BUN Creatinine Glucose POC Glucose 114 H 158 H 140 H Calcium AST ALT Total Protein Albumin Urine WBC (Auto) 01/01/17 01/02/17 01/02/17 21:33 05:30 12:01 WBC RBC Hgb Hct MCV MCH MCHC RDW Plt Count Lymph % (Auto) [place] % (Auto) Eos % (Auto) Lymph # Seg Neutrophils % Seg Neuts % (Manual) Lymphocytes % (Manual) Monocytes % (Manual) Seg Neutrophils # Man Lymphocytes # (Manual) Monocytes # (Manual) PT INR APTT Fibrinogen Heparin Anti-Xa Level Sodium Potassium Chloride Carbon Dioxide BUN Creatinine Glucose POC Glucose 131 H 148 H 149 H Calcium AST ALT Total Protein Albumin Urine WBC (Auto) 01/02/17 01/02/17 01/03/17 16:01 22:02 05:52 WBC RBC Hgb Hct MCV MCH MCHC RDW Plt Count Lymph % (Auto) [place] % (Auto) Eos % (Auto) Lymph # Seg Neutrophils % Seg Neuts % (Manual) Lymphocytes % (Manual) Monocytes % (Manual) Seg Neutrophils # Man Lymphocytes # (Manual) Monocytes # (Manual) PT INR APTT Fibrinogen Heparin Anti-Xa Level Sodium Potassium Chloride Carbon Dioxide BUN Creatinine Glucose POC Glucose 127 H 139 H 122 H Calcium AST ALT Total Protein Albumin Urine WBC (Auto) 01/03/17 01/03/17 01/03/17 11:25 16:15 22:01 WBC RBC Hgb Hct MCV MCH MCHC RDW Plt Count Lymph % (Auto) [place] % (Auto) Eos % (Auto) Lymph # Seg Neutrophils % Seg Neuts % (Manual) Lymphocytes % (Manual) Monocytes % (Manual) Seg Neutrophils # Man Lymphocytes # (Manual) Monocytes # (Manual) PT INR APTT Fibrinogen Heparin Anti-Xa Level Sodium Potassium Chloride Carbon Dioxide BUN Creatinine Glucose POC Glucose 159 H 145 H 141 H Calcium AST ALT Total Protein Albumin Urine WBC (Auto) 01/04/17 01/04/17 01/04/17 07:11 11:48 16:38 WBC RBC Hgb Hct MCV MCH MCHC RDW Plt Count Lymph % (Auto) [place] % (Auto) Eos % (Auto) Lymph # Seg Neutrophils % Seg Neuts % (Manual) Lymphocytes % (Manual) Monocytes % (Manual) Seg Neutrophils # Man Lymphocytes # (Manual) Monocytes # (Manual) PT INR APTT Fibrinogen Heparin Anti-Xa Level Sodium Potassium Chloride Carbon Dioxide BUN Creatinine Glucose POC Glucose 141 H 153 H 136 H Calcium AST ALT Total Protein Albumin Urine WBC (Auto) 01/04/17 01/05/17 01/05/17 21:28 06:34 11:40 WBC RBC Hgb Hct MCV MCH MCHC RDW Plt Count Lymph % (Auto) [place] % (Auto) Eos % (Auto) Lymph # Seg Neutrophils % Seg Neuts % (Manual) Lymphocytes % (Manual) Monocytes % (Manual) Seg Neutrophils # Man Lymphocytes # (Manual) Monocytes # (Manual) PT INR APTT Fibrinogen Heparin Anti-Xa Level Sodium Potassium Chloride Carbon Dioxide BUN Creatinine Glucose POC Glucose 154 H 143 H 129 H Calcium AST ALT Total Protein Albumin Urine WBC (Auto) 01/05/17 01/05/17 01/06/17 16:31 21:16 06:09 WBC RBC Hgb Hct MCV MCH MCHC RDW Plt Count Lymph % (Auto) [place] % (Auto) Eos % (Auto) Lymph # Seg Neutrophils % Seg Neuts % (Manual) Lymphocytes % (Manual) Monocytes % (Manual) Seg Neutrophils # Man Lymphocytes # (Manual) Monocytes # (Manual) PT INR APTT Fibrinogen Heparin Anti-Xa Level Sodium Potassium Chloride Carbon Dioxide BUN Creatinine Glucose POC Glucose 129 H 123 H 147 H Calcium AST ALT Total Protein Albumin Urine WBC (Auto) 01/06/17 01/06/17 01/06/17 11:27 16:30 21:30 WBC RBC Hgb Hct MCV MCH MCHC RDW Plt Count Lymph % (Auto) [place] % (Auto) Eos % (Auto) Lymph # Seg Neutrophils % Seg Neuts % (Manual) Lymphocytes % (Manual) Monocytes % (Manual) Seg Neutrophils # Man Lymphocytes # (Manual) Monocytes # (Manual) PT INR APTT Fibrinogen Heparin Anti-Xa Level Sodium Potassium Chloride Carbon Dioxide BUN Creatinine Glucose POC Glucose 137 H 157 H 169 H Calcium AST ALT Total Protein Albumin Urine WBC (Auto) 01/07/17 01/07/17 01/07/17 06:03 11:36 16:51 WBC RBC Hgb Hct MCV MCH MCHC RDW Plt Count Lymph % (Auto) [place] % (Auto) Eos % (Auto) Lymph # Seg Neutrophils % Seg Neuts % (Manual) Lymphocytes % (Manual) Monocytes % (Manual) Seg Neutrophils # Man Lymphocytes # (Manual) Monocytes # (Manual) PT INR APTT Fibrinogen Heparin Anti-Xa Level Sodium Potassium Chloride Carbon Dioxide BUN Creatinine Glucose POC Glucose 141 H 157 H 138 H Calcium AST ALT Total Protein Albumin Urine WBC (Auto) 01/07/17 21:48 WBC RBC Hgb Hct MCV MCH MCHC RDW Plt Count Lymph % (Auto) [place] % (Auto) Eos % (Auto) Lymph # Seg Neutrophils % Seg Neuts % (Manual) Lymphocytes % (Manual) Monocytes % (Manual) Seg Neutrophils # Man Lymphocytes # (Manual) Monocytes # (Manual) PT INR APTT Fibrinogen Heparin Anti-Xa Level Sodium Potassium Chloride Carbon Dioxide BUN Creatinine Glucose POC Glucose 152 H Calcium AST ALT Total Protein Albumin Urine WBC (Auto) - Diagnostic Findings Additional findings: MRI of lumbar spine done 2 weeks ago negative for canal stenosis evidence of epidural abscess. Disc spaces are all well maintained no evidence of disc protrusion no evidence of osteomyelitis. Plain films of lumbar spine done around the same time negative for osteomyelitis Assessment and Plan - Patient Problems (1) Dorsalgia of lumbosacral region Current Visit: Yes Status: Chronic Plan to address problem: I would recommend a repeat lumbar spine x-ray to ensure no interval development of osteomyelitis I also recommend a x-ray of the left hip in case source of pain is coming from hip degeneration process or necrosis
[2017-01-08] MEDS: ROXICODONE PO PRN ×2 (12:00→18:40)
--- NOTE | 2017-01-08 14:32 | Progress Note ---
Assessment and Plan Assessment and plan: (1) Acute respiratory failure with hypoxia - resolved (2) Morbid (severe) obesity due to excess calories - Pt counseled regarding balanced diet, increased physical activity, bariatric surgery (3) LIVAN on CPAP - continue current management (4) Pulmonary embolism Saddle embolus of pulmonary artery with acute cor pulmonale Plan to address problem: S/P EKOS therapy, and IVC filter placement, continue Eliqis (5) Diabetes - ADA, insulin - Monitor (6) Psoas abscess - patient was treated with Iv antibiotics for 6 weeks - No leukocytosis, fever, chills - ID recommend no antibiotics (7) Osteomyelitis of the lower back - Severe pain - Completed full course abx, still complaining of back pain. - Continue physical therapy - Neurosurgeon came and evaluate him today and recommended lumbar and left hip x -ray (8) DVT prophylaxis - On therapeutic eliquis. History Interval history: patient complains lower back and left hip pain. Symptoms of UTI resolved. Hospitalist Physical - Physical exam Narrative exam: In moderate distress from pain. The patient is obese. Vital signs as documented. Head exam is unremarkable. No scleral icterus . Neck is without jugular venous distension, thyromegaly, or carotid bruits. Lungs are clear to auscultation. Cardiac exam reveals regular rate and Rhythm. First and second heart sounds normal. No murmurs, rubs or gallops. Abdominal exam reveals obese abdomen. Swelling on the left thigh, sore but no tenderness or flactulence. DEAN OF MEN: Alert and oriented 3. - Constitutional Vitals: Temp Pulse Resp BP Pulse Ox 98.9 F 95 H 20 122/79 100 01/08/17 07:40 01/08/17 07:40 01/08/17 07:40 01/08/17 07:40 01/08/17 07:40 General appearance: Present: no acute distress, obese Results - Labs CBC & Chem 7: 12/26/16 05:21 12/26/16 05:21 Labs: Laboratory Last Values WBC 5.9 K/mm3 (4.5-11.0) 12/26/16 05:21 RBC 4.14 M/mm3 (3.65-5.03) 12/26/16 05:21 Hgb 10.7 gm/dl (11.8-15.2) L 12/26/16 05:21 Hct 33.4 % (35.5-45.6) L 12/26/16 05:21 MCV 81 fl (84-94) L 12/26/16 05:21 MCH 26 pg (28-32) L 12/26/16 05:21 MCHC 32 % (32-34) 12/26/16 05:21 RDW 16.6 % (13.2-15.2) H 12/26/16 05:21 Plt Count 278 K/mm3 (140-440) 12/26/16 05:21 Lymph % (Auto) 33.0 % (13.4-35.0) 12/26/16 05:21 [place] % (Auto) 13.5 % (0.0-7.3) H 12/26/16 05:21 Eos % (Auto) 6.9 % (0.0-4.3) H 12/26/16 05:21 Baso % (Auto) 0.9 % (0.0-1.8) 12/26/16 05:21 Lymph # 1.9 K/mm3 (1.2-5.4) 12/26/16 05:21 [place] # 0.8 K/mm3 (0.0-0.8) 12/26/16 05:21 Eos # 0.4 K/mm3 (0.0-0.4) 12/26/16 05:21 Baso # 0.1 K/mm3 (0.0-0.1) 12/26/16 05:21 Add Manual Diff Complete 11/27/16 17:00 Total Counted 100 11/27/16 17:00 Seg Neutrophils % 45.7 % (40.0-70.0) 12/26/16 05:21 Seg Neuts % (Manual) 80.0 % (40.0-70.0) H 11/27/16 17:00 Band Neutrophils % 0 % 11/27/16 17:00 Lymphocytes % (Manual) 9.0 % (13.4-35.0) L 11/27/16 17:00 Reactive Lymphs % (Man) 0 % 11/27/16 17:00 Monocytes % (Manual) 9.0 % (0.0-7.3) H 11/27/16 17:00 Eosinophils % (Manual) 0 % (0.0-4.3) 11/27/16 17:00 Basophils % (Manual) 0 % (0.0-1.8) 11/27/16 17:00 Metamyelocytes % 2.0 % 11/27/16 17:00 Myelocytes % 0 % 11/27/16 17:00 Promyelocytes % 0 % 11/27/16 17:00 Blast Cells % 0 % 11/27/16 17:00 Nucleated RBC % Not Reportable 11/27/16 17:00 Seg Neutrophils # 2.7 K/mm3 (1.8-7.7) 12/26/16 05:21 Seg Neutrophils # Man 7.7 K/mm3 (1.8-7.7) 11/27/16 17:00 Band Neutrophils # 0.0 K/mm3 11/27/16 17:00 Lymphocytes # (Manual) 0.9 K/mm3 (1.2-5.4) L 11/27/16 17:00 Abs React Lymphs (Man) 0.0 K/mm3 11/27/16 17:00 Monocytes # (Manual) 0.9 K/mm3 (0.0-0.8) H 11/27/16 17:00 Eosinophils # (Manual) 0.0 K/mm3 (0.0-0.4) 11/27/16 17:00 Basophils # (Manual) 0.0 K/mm3 (0.0-0.1) 11/27/16 17:00 Metamyelocytes # 0.2 K/mm3 11/27/16 17:00 Myelocytes # 0.0 K/mm3 11/27/16 17:00 Promyelocytes # 0.0 K/mm3 11/27/16 17:00 Blast Cells # 0.0 K/mm3 11/27/16 17:00 WBC Morphology Not Reportable 11/27/16 17:00 Hypersegmented Neuts Not Reportable 11/27/16 17:00 Hyposegmented Neuts Not Reportable 11/27/16 17:00 Hypogranular Neuts Not Reportable 11/27/16 17:00 Smudge Cells Not Reportable 11/27/16 17:00 Toxic Granulation Not Reportable 11/27/16 17:00 Toxic Vacuolation Not Reportable 11/27/16 17:00 Dohle Bodies Not Reportable 11/27/16 17:00 Pelger-Huet Anomaly Not Reportable 11/27/16 17:00 Mati Rods Not Reportable 11/27/16 17:00 Platelet Estimate Consistent w auto 11/27/16 17:00 Clumped Platelets Not Reportable 11/27/16 17:00 Plt Clumps, EDTA Not Reportable 11/27/16 17:00 Large Platelets Not Reportable 11/27/16 17:00 Giant Platelets Not Reportable 11/27/16 17:00 Platelet Satelliting Not Reportable 11/27/16 17:00 Plt Morphology Comment Not Reportable 11/27/16 17:00 RBC Morphology Not Reportable 11/27/16 17:00 Dimorphic RBCs Not Reportable 11/27/16 17:00 Polychromasia Not Reportable 11/27/16 17:00 Hypochromasia Not Reportable 11/27/16 17:00 Poikilocytosis Not Reportable 11/27/16 17:00 Anisocytosis 1+ 11/27/16 17:00 Microcytosis Not Reportable 11/27/16 17:00 Macrocytosis Not Reportable 11/27/16 17:00 Spherocytes Not Reportable 11/27/16 17:00 Pappenheimer Bodies Not Reportable 11/27/16 17:00 Sickle Cells Not Reportable 11/27/16 17:00 Target Cells Not Reportable 11/27/16 17:00 Tear Drop Cells Not Reportable 11/27/16 17:00 Ovalocytes Not Reportable 11/27/16 17:00 Helmet Cells Not Reportable 11/27/16 17:00 Serrato-Plainfield Bodies Not Reportable 11/27/16 17:00 [place] Rings Not Reportable 11/27/16 17:00 Honeydew Cells Not Reportable 11/27/16 17:00 Bite Cells Not Reportable 11/27/16 17:00 Crenated Cell Not Reportable 11/27/16 17:00 Elliptocytes Not Reportable 11/27/16 17:00 Acanthocytes (Spur) Not Reportable 11/27/16 17:00 Rouleaux Not Reportable 11/27/16 17:00 Hemoglobin C Crystals Not Reportable 11/27/16 17:00 Schistocytes Not Reportable 11/27/16 17:00 Malaria parasites Not Reportable 11/27/16 17:00 Michael Bodies Not Reportable 11/27/16 17:00 Hem Pathologist Commnt No 11/27/16 17:00 PT 23.9 Sec. (12.2-14.9) H 11/30/16 17:15 INR 2.13 (0.87-1.13) H 11/30/16 17:15 APTT 62.0 Sec. (24.2-36.6) H* 12/04/16 Unknown Fibrinogen 474 mg/dl (211-480) 11/27/16 23:00 Heparin Anti-Xa Level 0.14 U.I./ml (0.3-0.7) L 11/30/16 Unknown Heparin Anti-Xa, Unfract Negative (Negative) 11/30/16 Unknown Sodium 142 mmol/L (137-145) 12/26/16 05:21 Potassium 3.8 mmol/L (3.6-5.0) 12/26/16 05:21 Chloride 104.0 mmol/L (98-107) 12/26/16 05:21 Carbon Dioxide 23 mmol/L (22-30) 12/26/16 05:21 Anion Gap 19 mmol/L 12/26/16 05:21 BUN 11 mg/dL (9-20) 12/26/16 05:21 Creatinine 0.4 mg/dL (0.8-1.5) L 12/26/16 05:21 Estimated GFR > 60 ml/min 12/26/16 05:21 BUN/Creatinine Ratio 27.50 % 12/26/16 05:21 Glucose 124 mg/dL (75-100) H 12/26/16 05:21 POC Glucose 173 (70-105) H 01/08/17 11:30 Calcium 9.5 mg/dL (8.4-10.2) 12/26/16 05:21 Total Bilirubin 0.3 mg/dL (0.1-1.2) 12/07/16 06:32 Direct Bilirubin 0.2 mg/dL (0-0.2) 11/30/16 04:18 Indirect Bilirubin 0.5 mg/dL 11/30/16 04:18 AST 12 units/L (5-40) 12/07/16 06:32 ALT 21 units/L (7-56) 12/07/16 06:32 Alkaline Phosphatase 83 units/L (35-129) 12/07/16 06:32 Total Protein 6.2 g/dL (6.3-8.2) L 12/07/16 06:32 Albumin 2.9 g/dL (3.9-5) L 12/07/16 06:32 Albumin/Globulin Ratio 0.9 % 12/07/16 06:32 Serotonin Release Assay See scanned report 11/30/16 Unknown Urine Color Yellow (Yellow) 12/31/16 11:30 Urine Turbidity Cloudy (Clear) 12/31/16 11:30 Urine pH 5.0 (5.0-7.0) 12/31/16 11:30 Ur Specific [place] 1.017 (1.003-1.030) 12/31/16 11:30 Urine Protein <15 mg/dl mg/dL (Negative) 12/31/16 11:30 Urine Glucose (UA) Neg mg/dL (Negative) 12/31/16 11:30 Urine Ketones Neg mg/dL (Negative) 12/31/16 11:30 Urine Blood Sm (Negative) 12/31/16 11:30 Urine Nitrite Neg (Negative) 12/31/16 11:30 Urine Bilirubin Neg (Negative) 12/31/16 11:30 Urine Urobilinogen 2.0 mg/dL (<2.0) 12/31/16 11:30 Ur Leukocyte Esterase Lg (Negative) 12/31/16 11:30 Urine WBC (Auto) > 182.0 /HPF (0.0-6.0) H 12/31/16 11:30 Urine RBC (Auto) 3.0 /HPF (0.0-6.0) 12/31/16 11:30 U Epithel Cells (Auto) < 1.0 /HPF (0-13.0) 11/30/16 Unknown Urine Bacteria (Auto) 2+ /HPF (Negative) 12/31/16 11:30 Uric Acid Crystals 1+ 11/30/16 Unknown Amorphous Crystals Few 12/31/16 11:30 Urine Mucus 1+ /HPF 12/31/16 11:30 Heparin-induced Plt Ab Negative (Negative) 11/30/16 Unknown UF Heparin High Dose 0 % Release (()) 11/30/16 Unknown MIKA UFH Low Dose 0.1 1 % Release (()) 11/30/16 Unknown MIKA UFH Low Dose 0.5 0 % Release (()) 11/30/16 Unknown Blood Type O POSITIVE 11/27/16 02:58 Antibody Screen Negative 11/27/16 02:58
[2017-01-08] MEDS: NEURONTIN PO SCH (18:40)
[2017-01-08] MEDS: DILAUDID PO PRN (23:39)
[2017-01-09] MEDS: DILAUDID PO PRN (06:48)
[2017-01-09] MEDS: NOVOLOG SUB-Q SCH ×4 (08:00→22:00)
[2017-01-09] MEDS: CARAFATE PO SCH ×4 (08:00→21:36)
--- NOTE | 2017-01-09 08:47 | Progress Note ---
Assessment and Plan - Patient Problems (1) Dorsalgia of lumbosacral region Current Visit: Yes Status: Chronic Plan to address problem: Xray is not suggestive of on going or progressive osteomyelitis. Advancing activity as tolerated. No report ready for hip. Subjective Date of service: 01/09/17 Principal diagnosis: PEG removal Interval history: No acute change overnight. Objective - Exam Narrative Exam: Patient is lying in bed in no apparent distress. Biateral upper extremities are 5 out of 5 bilateral lower extremities are 3-4 out of 5 mostly due to pain sensory exam to soft touch is intact reflexes are diminished. Lumbar spine x ray negative for bone destruction consistent with osteomyelitis. - Vital Sign Vital Signs - 12hr 01/09/17 00:00 Temperature 98.6 F Pulse Rate [ 88 Apical] Respiratory 20 Rate Blood Pressure 123/73 [Right Arm] O2 Sat by Pulse 96 Oximetry - Laboratory Findings CBC and BMP: 12/26/16 05:21 12/26/16 05:21 Abnormal Lab Findings: Abnormal Labs 11/27/16 11/27/16 11/27/16 02:04 02:24 02:58 WBC 11.1 H RBC Hgb 11.6 L Hct MCV 83 L MCH 26 L MCHC 31 L RDW 17.0 H Plt Count Lymph % (Auto) [place] % (Auto) Eos % (Auto) Lymph # Seg Neutrophils % Seg Neuts % (Manual) Lymphocytes % (Manual) Monocytes % (Manual) 15.0 H Seg Neutrophils # Man Lymphocytes # (Manual) Monocytes # (Manual) 1.7 H PT INR APTT Fibrinogen Heparin Anti-Xa Level Sodium 133 L Potassium Chloride 96.4 L Carbon Dioxide 16 L D BUN 23 H Creatinine 0.5 L D Glucose 214 H POC Glucose 211 H Calcium AST ALT Total Protein Albumin Urine WBC (Auto) 11/27/16 11/27/16 11/27/16 02:58 06:20 06:20 WBC 13.2 H RBC Hgb 11.1 L Hct MCV 82 L MCH 26 L MCHC 31 L RDW 16.9 H Plt Count 472 H Lymph % (Auto) [place] % (Auto) Eos % (Auto) Lymph # Seg Neutrophils % Seg Neuts % (Manual) 82.0 H Lymphocytes % (Manual) 6.0 L Monocytes % (Manual) 9.0 H Seg Neutrophils # Man 10.8 H Lymphocytes # (Manual) 0.8 L Monocytes # (Manual) 1.2 H PT 15.9 H 18.5 H INR 1.28 H 1.54 H APTT 46.2 H Fibrinogen 603 H Heparin Anti-Xa Level Sodium Potassium Chloride Carbon Dioxide BUN Creatinine Glucose POC Glucose Calcium AST ALT Total Protein Albumin Urine WBC (Auto) 11/27/16 11/27/16 11/27/16 06:20 06:20 09:45 WBC 11.6 H RBC Hgb 11.2 L Hct 34.5 L MCV 81 L MCH 26 L MCHC RDW 17.0 H Plt Count Lymph % (Auto) [place] % (Auto) Eos % (Auto) Lymph # Seg Neutrophils % Seg Neuts % (Manual) 85.0 H Lymphocytes % (Manual) 3.0 L Monocytes % (Manual) Seg Neutrophils # Man 9.9 H Lymphocytes # (Manual) 0.3 L Monocytes # (Manual) PT INR APTT Fibrinogen Heparin Anti-Xa Level 0.99 H Sodium 136 L Potassium Chloride 96.6 L Carbon Dioxide 17 L BUN 23 H Creatinine 0.6 L Glucose 223 H POC Glucose Calcium AST ALT Total Protein Albumin Urine WBC (Auto) 11/27/16 11/27/16 11/27/16 15:01 17:00 17:00 WBC RBC Hgb 10.9 L Hct 33.2 L MCV 81 L MCH 27 L MCHC RDW 16.9 H Plt Count Lymph % (Auto) [place] % (Auto) Eos % (Auto) Lymph # Seg Neutrophils % Seg Neuts % (Manual) 80.0 H Lymphocytes % (Manual) 9.0 L Monocytes % (Manual) 9.0 H Seg Neutrophils # Man Lymphocytes # (Manual) 0.9 L Monocytes # (Manual) 0.9 H PT INR APTT Fibrinogen 533 H Heparin Anti-Xa Level 0.81 H Sodium Potassium Chloride Carbon Dioxide BUN Creatinine Glucose POC Glucose 254 H Calcium AST ALT Total Protein Albumin Urine WBC (Auto) 11/27/16 11/27/16 11/27/16 17:41 22:30 23:00 WBC RBC Hgb 10.0 L Hct 30.4 L MCV 82 L MCH 27 L MCHC RDW 17.0 H Plt Count Lymph % (Auto) [place] % (Auto) 8.2 H Eos % (Auto) Lymph # Seg Neutrophils % 75.1 H Seg Neuts % (Manual) Lymphocytes % (Manual) Monocytes % (Manual) Seg Neutrophils # Man Lymphocytes # (Manual) Monocytes # (Manual) PT INR APTT Fibrinogen Heparin Anti-Xa Level Sodium Potassium Chloride Carbon Dioxide BUN Creatinine Glucose POC Glucose 242 H 199 H Calcium AST ALT Total Protein Albumin Urine WBC (Auto) 11/28/16 11/28/16 11/28/16 05:00 05:00 05:00 WBC RBC Hgb 9.8 L Hct 30.0 L MCV 82 L MCH 27 L MCHC RDW 17.1 H Plt Count Lymph % (Auto) [place] % (Auto) 7.7 H Eos % (Auto) Lymph # 1.1 L Seg Neutrophils % 75.1 H Seg Neuts % (Manual) Lymphocytes % (Manual) Monocytes % (Manual) Seg Neutrophils # Man Lymphocytes # (Manual) Monocytes # (Manual) PT 19.7 H INR 1.67 H APTT 125.9 H* Fibrinogen Heparin Anti-Xa Level Sodium Potassium Chloride 107.3 H Carbon Dioxide 17 L BUN Creatinine 0.4 L Glucose 164 H POC Glucose Calcium 8.3 L AST ALT Total Protein Albumin Urine WBC (Auto) 11/28/16 11/28/16 11/28/16 07:40 14:00 14:00 WBC RBC Hgb Hct MCV MCH MCHC RDW Plt Count Lymph % (Auto) [place] % (Auto) Eos % (Auto) Lymph # Seg Neutrophils % Seg Neuts % (Manual) Lymphocytes % (Manual) Monocytes % (Manual) Seg Neutrophils # Man Lymphocytes # (Manual) Monocytes # (Manual) PT INR APTT 65.5 H* Fibrinogen Heparin Anti-Xa Level 0.23 L Sodium Potassium Chloride Carbon Dioxide BUN Creatinine Glucose POC Glucose 174 H Calcium AST ALT Total Protein Albumin Urine WBC (Auto) 11/28/16 11/28/16 11/28/16 16:12 21:40 21:48 WBC RBC 3.31 L Hgb 8.8 L Hct 27.0 L MCV 82 L MCH 27 L MCHC RDW 16.8 H Plt Count Lymph % (Auto) 12.9 L [place] % (Auto) 7.7 H Eos % (Auto) Lymph # 0.8 L Seg Neutrophils % 78.5 H Seg Neuts % (Manual) Lymphocytes % (Manual) Monocytes % (Manual) Seg Neutrophils # Man Lymphocytes # (Manual) Monocytes # (Manual) PT INR APTT Fibrinogen Heparin Anti-Xa Level Sodium Potassium Chloride Carbon Dioxide BUN Creatinine Glucose POC Glucose 144 H 153 H Calcium AST ALT Total Protein Albumin Urine WBC (Auto) 11/28/16 11/28/16 11/29/16 22:07 23:36 06:00 WBC RBC 3.18 L Hgb 8.6 L Hct 26.3 L MCV 83 L MCH 27 L MCHC RDW 16.6 H Plt Count Lymph % (Auto) [place] % (Auto) 8.5 H Eos % (Auto) Lymph # 0.9 L Seg Neutrophils % 73.5 H Seg Neuts % (Manual) Lymphocytes % (Manual) Monocytes % (Manual) Seg Neutrophils # Man Lymphocytes # (Manual) Monocytes # (Manual) PT INR APTT Fibrinogen Heparin Anti-Xa Level < 0.10 L Sodium Potassium Chloride Carbon Dioxide BUN Creatinine Glucose POC Glucose 158 H Calcium AST ALT Total Protein Albumin Urine WBC (Auto) 11/29/16 11/29/16 11/29/16 06:00 08:17 08:24 WBC RBC Hgb Hct MCV MCH MCHC RDW Plt Count Lymph % (Auto) [place] % (Auto) Eos % (Auto) Lymph # Seg Neutrophils % Seg Neuts % (Manual) Lymphocytes % (Manual) Monocytes % (Manual) Seg Neutrophils # Man Lymphocytes # (Manual) Monocytes # (Manual) PT INR APTT Fibrinogen Heparin Anti-Xa Level < 0.10 L Sodium Potassium 3.0 L Chloride 107.3 H Carbon Dioxide 19 L BUN Creatinine 0.3 L Glucose 116 H POC Glucose 115 H Calcium 8.2 L AST ALT Total Protein Albumin Urine WBC (Auto) 11/29/16 11/29/16 11/29/16 11:26 15:22 21:33 WBC RBC Hgb Hct MCV MCH MCHC RDW Plt Count Lymph % (Auto) [place] % (Auto) Eos % (Auto) Lymph # Seg Neutrophils % Seg Neuts % (Manual) Lymphocytes % (Manual) Monocytes % (Manual) Seg Neutrophils # Man Lymphocytes # (Manual) Monocytes # (Manual) PT INR APTT Fibrinogen Heparin Anti-Xa Level Sodium Potassium Chloride Carbon Dioxide BUN Creatinine Glucose POC Glucose 172 H 167 H 152 H Calcium AST ALT Total Protein Albumin Urine WBC (Auto) 11/30/16 11/30/16 11/30/16 01:30 04:18 04:18 WBC RBC 3.28 L Hgb 8.8 L Hct 27.3 L MCV 83 L MCH 27 L MCHC RDW 16.9 H Plt Count Lymph % (Auto) [place] % (Auto) 10.2 H Eos % (Auto) Lymph # 0.9 L Seg Neutrophils % 73.3 H Seg Neuts % (Manual) Lymphocytes % (Manual) Monocytes % (Manual) Seg Neutrophils # Man Lymphocytes # (Manual) Monocytes # (Manual) PT INR APTT Fibrinogen Heparin Anti-Xa Level < 0.10 L Sodium Potassium Chloride Carbon Dioxide 19 L BUN 8 L Creatinine 0.3 L Glucose 132 H POC Glucose Calcium 7.9 L AST ALT Total Protein Albumin Urine WBC (Auto) 11/30/16 11/30/16 11/30/16 04:18 07:32 09:27 WBC RBC Hgb Hct MCV MCH MCHC RDW Plt Count Lymph % (Auto) [place] % (Auto) Eos % (Auto) Lymph # Seg Neutrophils % Seg Neuts % (Manual) Lymphocytes % (Manual) Monocytes % (Manual) Seg Neutrophils # Man Lymphocytes # (Manual) Monocytes # (Manual) PT INR APTT 50.1 H Fibrinogen Heparin Anti-Xa Level Sodium Potassium Chloride Carbon Dioxide BUN Creatinine Glucose POC Glucose 125 H Calcium AST 287 H ALT 841 H Total Protein 6.0 L Albumin 2.7 L Urine WBC (Auto) 11/30/16 11/30/16 11/30/16 11:27 16:49 17:15 WBC RBC Hgb Hct MCV MCH MCHC RDW Plt Count Lymph % (Auto) [place] % (Auto) Eos % (Auto) Lymph # Seg Neutrophils % Seg Neuts % (Manual) Lymphocytes % (Manual) Monocytes % (Manual) Seg Neutrophils # Man Lymphocytes # (Manual) Monocytes # (Manual) PT 23.9 H INR 2.13 H APTT 55.4 H Fibrinogen Heparin Anti-Xa Level Sodium Potassium Chloride Carbon Dioxide BUN Creatinine Glucose POC Glucose 161 H 140 H Calcium AST ALT Total Protein Albumin Urine WBC (Auto) 11/30/16 11/30/16 11/30/16 20:48 23:00 Unknown WBC RBC Hgb Hct MCV MCH MCHC RDW Plt Count Lymph % (Auto) [place] % (Auto) Eos % (Auto) Lymph # Seg Neutrophils % Seg Neuts % (Manual) Lymphocytes % (Manual) Monocytes % (Manual) Seg Neutrophils # Man Lymphocytes # (Manual) Monocytes # (Manual) PT INR APTT 151.3 H* Fibrinogen Heparin Anti-Xa Level 0.14 L Sodium Potassium Chloride Carbon Dioxide BUN Creatinine Glucose POC Glucose 157 H Calcium AST ALT Total Protein Albumin Urine WBC (Auto) 11/30/16 12/01/16 12/01/16 Unknown 04:00 07:16 WBC RBC 3.45 L Hgb 9.1 L Hct 28.4 L MCV 82 L MCH 26 L MCHC RDW 17.2 H Plt Count Lymph % (Auto) [place] % (Auto) 10.8 H Eos % (Auto) Lymph # 0.9 L Seg Neutrophils % Seg Neuts % (Manual) Lymphocytes % (Manual) Monocytes % (Manual) Seg Neutrophils # Man Lymphocytes # (Manual) Monocytes # (Manual) PT INR APTT 70.3 H* Fibrinogen Heparin Anti-Xa Level Sodium Potassium Chloride Carbon Dioxide BUN Creatinine Glucose POC Glucose Calcium AST ALT Total Protein Albumin Urine WBC (Auto) 19.0 H 12/01/16 12/01/16 12/01/16 10:30 18:26 22:33 WBC RBC Hgb Hct MCV MCH MCHC RDW Plt Count Lymph % (Auto) [place] % (Auto) Eos % (Auto) Lymph # Seg Neutrophils % Seg Neuts % (Manual) Lymphocytes % (Manual) Monocytes % (Manual) Seg Neutrophils # Man Lymphocytes # (Manual) Monocytes # (Manual) PT INR APTT 52.8 H Fibrinogen Heparin Anti-Xa Level Sodium Potassium Chloride Carbon Dioxide BUN Creatinine Glucose POC Glucose 176 H 164 H Calcium AST ALT Total Protein Albumin Urine WBC (Auto) 12/02/16 12/02/16 12/02/16 06:48 08:21 13:24 WBC RBC Hgb Hct MCV MCH MCHC RDW Plt Count Lymph % (Auto) [place] % (Auto) Eos % (Auto) Lymph # Seg Neutrophils % Seg Neuts % (Manual) Lymphocytes % (Manual) Monocytes % (Manual) Seg Neutrophils # Man Lymphocytes # (Manual) Monocytes # (Manual) PT INR APTT 52.1 H Fibrinogen Heparin Anti-Xa Level Sodium Potassium Chloride Carbon Dioxide BUN Creatinine Glucose POC Glucose 126 H 123 H Calcium AST ALT Total Protein Albumin Urine WBC (Auto) 12/02/16 12/02/16 12/02/16 14:58 17:09 21:30 WBC RBC Hgb Hct MCV MCH MCHC RDW Plt Count Lymph % (Auto) [place] % (Auto) Eos % (Auto) Lymph # Seg Neutrophils % Seg Neuts % (Manual) Lymphocytes % (Manual) Monocytes % (Manual) Seg Neutrophils # Man Lymphocytes # (Manual) Monocytes # (Manual) PT INR APTT 69.4 H* Fibrinogen Heparin Anti-Xa Level Sodium Potassium Chloride Carbon Dioxide BUN Creatinine Glucose POC Glucose 149 H 145 H Calcium AST ALT Total Protein Albumin Urine WBC (Auto) 12/02/16 12/03/16 12/03/16 22:00 05:00 05:00 WBC RBC Hgb 10.1 L Hct 31.0 L MCV MCH MCHC RDW Plt Count Lymph % (Auto) [place] % (Auto) Eos % (Auto) Lymph # Seg Neutrophils % Seg Neuts % (Manual) Lymphocytes % (Manual) Monocytes % (Manual) Seg Neutrophils # Man Lymphocytes # (Manual) Monocytes # (Manual) PT INR APTT 54.6 H Fibrinogen Heparin Anti-Xa Level Sodium Potassium 2.8 L* D Chloride Carbon Dioxide BUN 4 L Creatinine 0.2 L Glucose 107 H POC Glucose Calcium AST ALT 142 H Total Protein 5.7 L Albumin 2.6 L Urine WBC (Auto) 12/03/16 12/03/16 12/03/16 05:00 08:24 12:45 WBC RBC Hgb Hct MCV MCH MCHC RDW Plt Count Lymph % (Auto) [place] % (Auto) Eos % (Auto) Lymph # Seg Neutrophils % Seg Neuts % (Manual) Lymphocytes % (Manual) Monocytes % (Manual) Seg Neutrophils # Man Lymphocytes # (Manual) Monocytes # (Manual) PT INR APTT 117.3 H* Fibrinogen Heparin Anti-Xa Level Sodium Potassium Chloride Carbon Dioxide BUN Creatinine Glucose POC Glucose 111 H 148 H Calcium AST ALT Total Protein Albumin Urine WBC (Auto) 12/03/16 12/03/16 12/03/16 13:56 16:49 19:34 WBC RBC Hgb Hct MCV MCH MCHC RDW Plt Count Lymph % (Auto) [place] % (Auto) Eos % (Auto) Lymph # Seg Neutrophils % Seg Neuts % (Manual) Lymphocytes % (Manual) Monocytes % (Manual) Seg Neutrophils # Man Lymphocytes # (Manual) Monocytes # (Manual) PT INR APTT 61.5 H* 174.7 H* Fibrinogen Heparin Anti-Xa Level Sodium Potassium Chloride Carbon Dioxide BUN Creatinine Glucose POC Glucose 146 H Calcium AST ALT Total Protein Albumin Urine WBC (Auto) 12/03/16 12/04/16 12/04/16 21:48 00:45 05:00 WBC RBC Hgb 10.1 L Hct 31.5 L MCV 82 L MCH 26 L MCHC RDW 17.6 H Plt Count Lymph % (Auto) [place] % (Auto) 10.4 H Eos % (Auto) Lymph # Seg Neutrophils % Seg Neuts % (Manual) Lymphocytes % (Manual) Monocytes % (Manual) Seg Neutrophils # Man Lymphocytes # (Manual) Monocytes # (Manual) PT INR APTT 41.3 H Fibrinogen Heparin Anti-Xa Level Sodium Potassium Chloride Carbon Dioxide BUN Creatinine Glucose POC Glucose 128 H Calcium AST ALT Total Protein Albumin Urine WBC (Auto) 12/04/16 12/04/16 12/04/16 05:00 05:00 12:21 WBC RBC Hgb Hct MCV MCH MCHC RDW Plt Count Lymph % (Auto) [place] % (Auto) Eos % (Auto) Lymph # Seg Neutrophils % Seg Neuts % (Manual) Lymphocytes % (Manual) Monocytes % (Manual) Seg Neutrophils # Man Lymphocytes # (Manual) Monocytes # (Manual) PT INR APTT 51.7 H Fibrinogen Heparin Anti-Xa Level Sodium Potassium 3.4 L D Chloride 107.2 H Carbon Dioxide BUN 5 L Creatinine 0.2 L Glucose 114 H POC Glucose 128 H Calcium AST ALT Total Protein Albumin Urine WBC (Auto) 12/04/16 12/04/16 12/04/16 15:32 16:00 19:53 WBC RBC Hgb Hct MCV MCH MCHC RDW Plt Count Lymph % (Auto) [place] % (Auto) Eos % (Auto) Lymph # Seg Neutrophils % Seg Neuts % (Manual) Lymphocytes % (Manual) Monocytes % (Manual) Seg Neutrophils # Man Lymphocytes # (Manual) Monocytes # (Manual) PT INR APTT 81.1 H* Fibrinogen Heparin Anti-Xa Level Sodium Potassium Chloride Carbon Dioxide BUN Creatinine Glucose POC Glucose 115 H 159 H Calcium AST ALT Total Protein Albumin Urine WBC (Auto) 12/04/16 12/05/16 12/05/16 Unknown 06:48 06:48 WBC RBC Hgb 9.8 L Hct 30.5 L MCV 82 L MCH 26 L MCHC RDW 17.2 H Plt Count Lymph % (Auto) [place] % (Auto) Eos % (Auto) Lymph # Seg Neutrophils % Seg Neuts % (Manual) Lymphocytes % (Manual) Monocytes % (Manual) Seg Neutrophils # Man Lymphocytes # (Manual) Monocytes # (Manual) PT INR APTT 62.0 H* Fibrinogen Heparin Anti-Xa Level Sodium Potassium 3.3 L Chloride Carbon Dioxide BUN 5 L Creatinine 0.2 L Glucose 140 H POC Glucose Calcium 8.2 L AST ALT Total Protein Albumin Urine WBC (Auto) 12/05/16 12/05/16 12/05/16 07:22 12:03 16:32 WBC RBC Hgb Hct MCV MCH MCHC RDW Plt Count Lymph % (Auto) [place] % (Auto) Eos % (Auto) Lymph # Seg Neutrophils % Seg Neuts % (Manual) Lymphocytes % (Manual) Monocytes % (Manual) Seg Neutrophils # Man Lymphocytes # (Manual) Monocytes # (Manual) PT INR APTT Fibrinogen Heparin Anti-Xa Level Sodium Potassium Chloride Carbon Dioxide BUN Creatinine Glucose POC Glucose 122 H 138 H 145 H Calcium AST ALT Total Protein Albumin Urine WBC (Auto) 12/05/16 12/06/16 12/06/16 21:41 07:56 11:21 WBC RBC Hgb Hct MCV MCH MCHC RDW Plt Count Lymph % (Auto) [place] % (Auto) Eos % (Auto) Lymph # Seg Neutrophils % Seg Neuts % (Manual) Lymphocytes % (Manual) Monocytes % (Manual) Seg Neutrophils # Man Lymphocytes # (Manual) Monocytes # (Manual) PT INR APTT Fibrinogen Heparin Anti-Xa Level Sodium Potassium Chloride Carbon Dioxide BUN Creatinine Glucose POC Glucose 137 H 122 H 150 H Calcium AST ALT Total Protein Albumin Urine WBC (Auto) 12/06/16 12/07/16 12/07/16 20:25 06:32 06:32 WBC RBC Hgb 10.4 L Hct 32.1 L MCV 81 L MCH 26 L MCHC RDW 17.3 H Plt Count Lymph % (Auto) [place] % (Auto) 11.5 H Eos % (Auto) Lymph # Seg Neutrophils % Seg Neuts % (Manual) Lymphocytes % (Manual) Monocytes % (Manual) Seg Neutrophils # Man Lymphocytes # (Manual) Monocytes # (Manual) PT INR APTT Fibrinogen Heparin Anti-Xa Level Sodium Potassium Chloride Carbon Dioxide BUN 4 L Creatinine 0.2 L Glucose POC Glucose 172 H Calcium AST ALT Total Protein 6.2 L Albumin 2.9 L Urine WBC (Auto) 12/07/16 12/07/16 12/07/16 12:28 16:42 21:00 WBC RBC Hgb Hct MCV MCH MCHC RDW Plt Count Lymph % (Auto) [place] % (Auto) Eos % (Auto) Lymph # Seg Neutrophils % Seg Neuts % (Manual) Lymphocytes % (Manual) Monocytes % (Manual) Seg Neutrophils # Man Lymphocytes # (Manual) Monocytes # (Manual) PT INR APTT Fibrinogen Heparin Anti-Xa Level Sodium Potassium Chloride Carbon Dioxide BUN Creatinine Glucose POC Glucose 123 H 115 H 125 H Calcium AST ALT Total Protein Albumin Urine WBC (Auto) 12/08/16 12/08/16 12/08/16 11:13 16:41 19:47 WBC RBC Hgb Hct MCV MCH MCHC RDW Plt Count Lymph % (Auto) [place] % (Auto) Eos % (Auto) Lymph # Seg Neutrophils % Seg Neuts % (Manual) Lymphocytes % (Manual) Monocytes % (Manual) Seg Neutrophils # Man Lymphocytes # (Manual) Monocytes # (Manual) PT INR APTT Fibrinogen Heparin Anti-Xa Level Sodium Potassium Chloride Carbon Dioxide BUN Creatinine Glucose POC Glucose 125 H 139 H 142 H Calcium AST ALT Total Protein Albumin Urine WBC (Auto) 12/09/16 12/09/16 12/09/16 12:32 16:41 19:44 WBC RBC Hgb Hct MCV MCH MCHC RDW Plt Count Lymph % (Auto) [place] % (Auto) Eos % (Auto) Lymph # Seg Neutrophils % Seg Neuts % (Manual) Lymphocytes % (Manual) Monocytes % (Manual) Seg Neutrophils # Man Lymphocytes # (Manual) Monocytes # (Manual) PT INR APTT Fibrinogen Heparin Anti-Xa Level Sodium Potassium Chloride Carbon Dioxide BUN Creatinine Glucose POC Glucose 132 H 130 H 166 H Calcium AST ALT Total Protein Albumin Urine WBC (Auto) 12/10/16 12/10/16 12/10/16 08:14 11:41 15:32 WBC RBC Hgb Hct MCV MCH MCHC RDW Plt Count Lymph % (Auto) [place] % (Auto) Eos % (Auto) Lymph # Seg Neutrophils % Seg Neuts % (Manual) Lymphocytes % (Manual) Monocytes % (Manual) Seg Neutrophils # Man Lymphocytes # (Manual) Monocytes # (Manual) PT INR APTT Fibrinogen Heparin Anti-Xa Level Sodium Potassium Chloride Carbon Dioxide BUN Creatinine Glucose POC Glucose 150 H 137 H 150 H Calcium AST ALT Total Protein Albumin Urine WBC (Auto) 12/10/16 12/11/16 12/11/16 21:59 07:20 12:05 WBC RBC Hgb Hct MCV MCH MCHC RDW Plt Count Lymph % (Auto) [place] % (Auto) Eos % (Auto) Lymph # Seg Neutrophils % Seg Neuts % (Manual) Lymphocytes % (Manual) Monocytes % (Manual) Seg Neutrophils # Man Lymphocytes # (Manual) Monocytes # (Manual) PT INR APTT Fibrinogen Heparin Anti-Xa Level Sodium Potassium Chloride Carbon Dioxide BUN Creatinine Glucose POC Glucose 116 H 109 H 142 H Calcium AST ALT Total Protein Albumin Urine WBC (Auto) 12/11/16 12/11/16 12/12/16 15:41 23:23 09:06 WBC RBC Hgb Hct MCV MCH MCHC RDW Plt Count Lymph % (Auto) [place] % (Auto) Eos % (Auto) Lymph # Seg Neutrophils % Seg Neuts % (Manual) Lymphocytes % (Manual) Monocytes % (Manual) Seg Neutrophils # Man Lymphocytes # (Manual) Monocytes # (Manual) PT INR APTT Fibrinogen Heparin Anti-Xa Level Sodium Potassium Chloride Carbon Dioxide BUN Creatinine Glucose POC Glucose 133 H 154 H 152 H Calcium AST ALT Total Protein Albumin Urine WBC (Auto) 12/12/16 12/12/16 12/12/16 11:59 18:34 21:27 WBC RBC Hgb Hct MCV MCH MCHC RDW Plt Count Lymph % (Auto) [place] % (Auto) Eos % (Auto) Lymph # Seg Neutrophils % Seg Neuts % (Manual) Lymphocytes % (Manual) Monocytes % (Manual) Seg Neutrophils # Man Lymphocytes # (Manual) Monocytes # (Manual) PT INR APTT Fibrinogen Heparin Anti-Xa Level Sodium Potassium Chloride Carbon Dioxide BUN Creatinine Glucose POC Glucose 117 H 159 H 158 H Calcium AST ALT Total Protein Albumin Urine WBC (Auto) 12/13/16 12/13/16 12/13/16 07:24 12:30 15:53 WBC RBC Hgb Hct MCV MCH MCHC RDW Plt Count Lymph % (Auto) [place] % (Auto) Eos % (Auto) Lymph # Seg Neutrophils % Seg Neuts % (Manual) Lymphocytes % (Manual) Monocytes % (Manual) Seg Neutrophils # Man Lymphocytes # (Manual) Monocytes # (Manual) PT INR APTT Fibrinogen Heparin Anti-Xa Level Sodium Potassium Chloride Carbon Dioxide BUN Creatinine Glucose POC Glucose 114 H 146 H 151 H Calcium AST ALT Total Protein Albumin Urine WBC (Auto) 12/13/16 12/14/16 12/14/16 21:39 12:08 16:47 WBC RBC Hgb Hct MCV MCH MCHC RDW Plt Count Lymph % (Auto) [place] % (Auto) Eos % (Auto) Lymph # Seg Neutrophils % Seg Neuts % (Manual) Lymphocytes % (Manual) Monocytes % (Manual) Seg Neutrophils # Man Lymphocytes # (Manual) Monocytes # (Manual) PT INR APTT Fibrinogen Heparin Anti-Xa Level Sodium Potassium Chloride Carbon Dioxide BUN Creatinine Glucose POC Glucose 130 H 144 H 126 H Calcium AST ALT Total Protein Albumin Urine WBC (Auto) 12/14/16 12/15/16 12/15/16 21:35 08:49 12:53 WBC RBC Hgb Hct MCV MCH MCHC RDW Plt Count Lymph % (Auto) [place] % (Auto) Eos % (Auto) Lymph # Seg Neutrophils % Seg Neuts % (Manual) Lymphocytes % (Manual) Monocytes % (Manual) Seg Neutrophils # Man Lymphocytes # (Manual) Monocytes # (Manual) PT INR APTT Fibrinogen Heparin Anti-Xa Level Sodium Potassium Chloride Carbon Dioxide BUN Creatinine Glucose POC Glucose 115 H 119 H 163 H Calcium AST ALT Total Protein Albumin Urine WBC (Auto) 12/15/16 12/15/16 12/16/16 17:10 21:28 09:04 WBC RBC Hgb Hct MCV MCH MCHC RDW Plt Count Lymph % (Auto) [place] % (Auto) Eos % (Auto) Lymph # Seg Neutrophils % Seg Neuts % (Manual) Lymphocytes % (Manual) Monocytes % (Manual) Seg Neutrophils # Man Lymphocytes # (Manual) Monocytes # (Manual) PT INR APTT Fibrinogen Heparin Anti-Xa Level Sodium Potassium Chloride Carbon Dioxide BUN Creatinine Glucose POC Glucose 152 H 157 H 124 H Calcium AST ALT Total Protein Albumin Urine WBC (Auto) 12/16/16 12/16/16 12/16/16 11:57 16:29 23:17 WBC RBC Hgb Hct MCV MCH MCHC RDW Plt Count Lymph % (Auto) [place] % (Auto) Eos % (Auto) Lymph # Seg Neutrophils % Seg Neuts % (Manual) Lymphocytes % (Manual) Monocytes % (Manual) Seg Neutrophils # Man Lymphocytes # (Manual) Monocytes # (Manual) PT INR APTT Fibrinogen Heparin Anti-Xa Level Sodium Potassium Chloride Carbon Dioxide BUN Creatinine Glucose POC Glucose 149 H 129 H 115 H Calcium AST ALT Total Protein Albumin Urine WBC (Auto) 12/17/16 12/17/16 12/17/16 08:34 12:47 17:46 WBC RBC Hgb Hct MCV MCH MCHC RDW Plt Count Lymph % (Auto) [place] % (Auto) Eos % (Auto) Lymph # Seg Neutrophils % Seg Neuts % (Manual) Lymphocytes % (Manual) Monocytes % (Manual) Seg Neutrophils # Man Lymphocytes # (Manual) Monocytes # (Manual) PT INR APTT Fibrinogen Heparin Anti-Xa Level Sodium Potassium Chloride Carbon Dioxide BUN Creatinine Glucose POC Glucose 106 H 142 H 136 H Calcium AST ALT Total Protein Albumin Urine WBC (Auto) 12/17/16 12/18/16 12/18/16 21:28 08:25 12:19 WBC RBC Hgb Hct MCV MCH MCHC RDW Plt Count Lymph % (Auto) [place] % (Auto) Eos % (Auto) Lymph # Seg Neutrophils % Seg Neuts % (Manual) Lymphocytes % (Manual) Monocytes % (Manual) Seg Neutrophils # Man Lymphocytes # (Manual) Monocytes # (Manual) PT INR APTT Fibrinogen Heparin Anti-Xa Level Sodium Potassium Chloride Carbon Dioxide BUN Creatinine Glucose POC Glucose 131 H 125 H 138 H Calcium AST ALT Total Protein Albumin Urine WBC (Auto) 12/18/16 12/18/16 12/19/16 15:38 20:58 07:20 WBC RBC Hgb Hct MCV MCH MCHC RDW Plt Count Lymph % (Auto) [place] % (Auto) Eos % (Auto) Lymph # Seg Neutrophils % Seg Neuts % (Manual) Lymphocytes % (Manual) Monocytes % (Manual) Seg Neutrophils # Man Lymphocytes # (Manual) Monocytes # (Manual) PT INR APTT Fibrinogen Heparin Anti-Xa Level Sodium Potassium Chloride Carbon Dioxide BUN Creatinine Glucose POC Glucose 123 H 166 H 143 H Calcium AST ALT Total Protein Albumin Urine WBC (Auto) 12/19/16 12/19/16 12/19/16 11:44 15:14 20:01 WBC RBC Hgb Hct MCV MCH MCHC RDW Plt Count Lymph % (Auto) [place] % (Auto) Eos % (Auto) Lymph # Seg Neutrophils % Seg Neuts % (Manual) Lymphocytes % (Manual) Monocytes % (Manual) Seg Neutrophils # Man Lymphocytes # (Manual) Monocytes # (Manual) PT INR APTT Fibrinogen Heparin Anti-Xa Level Sodium Potassium Chloride Carbon Dioxide BUN Creatinine Glucose POC Glucose 146 H 150 H 151 H Calcium AST ALT Total Protein Albumin Urine WBC (Auto) 12/20/16 12/20/16 12/20/16 08:14 13:11 17:33 WBC RBC Hgb Hct MCV MCH MCHC RDW Plt Count Lymph % (Auto) [place] % (Auto) Eos % (Auto) Lymph # Seg Neutrophils % Seg Neuts % (Manual) Lymphocytes % (Manual) Monocytes % (Manual) Seg Neutrophils # Man Lymphocytes # (Manual) Monocytes # (Manual) PT INR APTT Fibrinogen Heparin Anti-Xa Level Sodium Potassium Chloride Carbon Dioxide BUN Creatinine Glucose POC Glucose 120 H 153 H 115 H Calcium AST ALT Total Protein Albumin Urine WBC (Auto) 12/21/16 12/21/16 12/21/16 08:27 12:37 17:06 WBC RBC Hgb Hct MCV MCH MCHC RDW Plt Count Lymph % (Auto) [place] % (Auto) Eos % (Auto) Lymph # Seg Neutrophils % Seg Neuts % (Manual) Lymphocytes % (Manual) Monocytes % (Manual) Seg Neutrophils # Man Lymphocytes # (Manual) Monocytes # (Manual) PT INR APTT Fibrinogen Heparin Anti-Xa Level Sodium Potassium Chloride Carbon Dioxide BUN Creatinine Glucose POC Glucose 117 H 131 H 131 H Calcium AST ALT Total Protein Albumin Urine WBC (Auto) 12/21/16 12/22/16 12/22/16 21:51 08:30 11:51 WBC RBC Hgb Hct MCV MCH MCHC RDW Plt Count Lymph % (Auto) [place] % (Auto) Eos % (Auto) Lymph # Seg Neutrophils % Seg Neuts % (Manual) Lymphocytes % (Manual) Monocytes % (Manual) Seg Neutrophils # Man Lymphocytes # (Manual) Monocytes # (Manual) PT INR APTT Fibrinogen Heparin Anti-Xa Level Sodium Potassium Chloride Carbon Dioxide BUN Creatinine Glucose POC Glucose 140 H 118 H 186 H Calcium AST ALT Total Protein Albumin Urine WBC (Auto) 12/22/16 12/22/16 12/23/16 16:34 21:30 08:38 WBC RBC Hgb Hct MCV MCH MCHC RDW Plt Count Lymph % (Auto) [place] % (Auto) Eos % (Auto) Lymph # Seg Neutrophils % Seg Neuts % (Manual) Lymphocytes % (Manual) Monocytes % (Manual) Seg Neutrophils # Man Lymphocytes # (Manual) Monocytes # (Manual) PT INR APTT Fibrinogen Heparin Anti-Xa Level Sodium Potassium Chloride Carbon Dioxide BUN Creatinine Glucose POC Glucose 109 H 127 H 114 H Calcium AST ALT Total Protein Albumin Urine WBC (Auto) 12/23/16 12/23/16 12/23/16 12:43 17:03 22:12 WBC RBC Hgb Hct MCV MCH MCHC RDW Plt Count Lymph % (Auto) [place] % (Auto) Eos % (Auto) Lymph # Seg Neutrophils % Seg Neuts % (Manual) Lymphocytes % (Manual) Monocytes % (Manual) Seg Neutrophils # Man Lymphocytes # (Manual) Monocytes # (Manual) PT INR APTT Fibrinogen Heparin Anti-Xa Level Sodium Potassium Chloride Carbon Dioxide BUN Creatinine Glucose POC Glucose 129 H 120 H 133 H Calcium AST ALT Total Protein Albumin Urine WBC (Auto) 12/24/16 12/24/16 12/24/16 07:11 12:09 16:26 WBC RBC Hgb Hct MCV MCH MCHC RDW Plt Count Lymph % (Auto) [place] % (Auto) Eos % (Auto) Lymph # Seg Neutrophils % Seg Neuts % (Manual) Lymphocytes % (Manual) Monocytes % (Manual) Seg Neutrophils # Man Lymphocytes # (Manual) Monocytes # (Manual) PT INR APTT Fibrinogen Heparin Anti-Xa Level Sodium Potassium Chloride Carbon Dioxide BUN Creatinine Glucose POC Glucose 116 H 148 H 106 H Calcium AST ALT Total Protein Albumin Urine WBC (Auto) 12/24/16 12/25/16 12/25/16 21:57 08:20 13:31 WBC RBC Hgb Hct MCV MCH MCHC RDW Plt Count Lymph % (Auto) [place] % (Auto) Eos % (Auto) Lymph # Seg Neutrophils % Seg Neuts % (Manual) Lymphocytes % (Manual) Monocytes % (Manual) Seg Neutrophils # Man Lymphocytes # (Manual) Monocytes # (Manual) PT INR APTT Fibrinogen Heparin Anti-Xa Level Sodium Potassium Chloride Carbon Dioxide BUN Creatinine Glucose POC Glucose 108 H 112 H 129 H Calcium AST ALT Total Protein Albumin Urine WBC (Auto) 12/25/16 12/25/16 12/26/16 17:28 21:04 05:21 WBC RBC Hgb 10.7 L Hct 33.4 L MCV 81 L MCH 26 L MCHC RDW 16.6 H Plt Count Lymph % (Auto) [place] % (Auto) 13.5 H Eos % (Auto) 6.9 H Lymph # Seg Neutrophils % Seg Neuts % (Manual) Lymphocytes % (Manual) Monocytes % (Manual) Seg Neutrophils # Man Lymphocytes # (Manual) Monocytes # (Manual) PT INR APTT Fibrinogen Heparin Anti-Xa Level Sodium Potassium Chloride Carbon Dioxide BUN Creatinine Glucose POC Glucose 129 H 150 H Calcium AST ALT Total Protein Albumin Urine WBC (Auto) 12/26/16 12/26/16 12/26/16 05:21 07:11 11:15 WBC RBC Hgb Hct MCV MCH MCHC RDW Plt Count Lymph % (Auto) [place] % (Auto) Eos % (Auto) Lymph # Seg Neutrophils % Seg Neuts % (Manual) Lymphocytes % (Manual) Monocytes % (Manual) Seg Neutrophils # Man Lymphocytes # (Manual) Monocytes # (Manual) PT INR APTT Fibrinogen Heparin Anti-Xa Level Sodium Potassium Chloride Carbon Dioxide BUN Creatinine 0.4 L Glucose 124 H POC Glucose 114 H 181 H Calcium AST ALT Total Protein Albumin Urine WBC (Auto) 12/26/16 12/26/16 12/26/16 11:52 16:01 22:04 WBC RBC Hgb Hct MCV MCH MCHC RDW Plt Count Lymph % (Auto) [place] % (Auto) Eos % (Auto) Lymph # Seg Neutrophils % Seg Neuts % (Manual) Lymphocytes % (Manual) Monocytes % (Manual) Seg Neutrophils # Man Lymphocytes # (Manual) Monocytes # (Manual) PT INR APTT Fibrinogen Heparin Anti-Xa Level Sodium Potassium Chloride Carbon Dioxide BUN Creatinine Glucose POC Glucose 150 H 114 H 127 H Calcium AST ALT Total Protein Albumin Urine WBC (Auto) 12/27/16 12/27/16 12/27/16 07:41 12:08 16:49 WBC RBC Hgb Hct MCV MCH MCHC RDW Plt Count Lymph % (Auto) [place] % (Auto) Eos % (Auto) Lymph # Seg Neutrophils % Seg Neuts % (Manual) Lymphocytes % (Manual) Monocytes % (Manual) Seg Neutrophils # Man Lymphocytes # (Manual) Monocytes # (Manual) PT INR APTT Fibrinogen Heparin Anti-Xa Level Sodium Potassium Chloride Carbon Dioxide BUN Creatinine Glucose POC Glucose 127 H 128 H 124 H Calcium AST ALT Total Protein Albumin Urine WBC (Auto) 12/27/16 12/28/16 12/28/16 21:01 05:09 12:06 WBC RBC Hgb Hct MCV MCH MCHC RDW Plt Count Lymph % (Auto) [place] % (Auto) Eos % (Auto) Lymph # Seg Neutrophils % Seg Neuts % (Manual) Lymphocytes % (Manual) Monocytes % (Manual) Seg Neutrophils # Man Lymphocytes # (Manual) Monocytes # (Manual) PT INR APTT Fibrinogen Heparin Anti-Xa Level Sodium Potassium Chloride Carbon Dioxide BUN Creatinine Glucose POC Glucose 108 H 110 H 144 H Calcium AST ALT Total Protein Albumin Urine WBC (Auto) 12/28/16 12/28/16 12/29/16 17:06 21:02 05:55 WBC RBC Hgb Hct MCV MCH MCHC RDW Plt Count Lymph % (Auto) [place] % (Auto) Eos % (Auto) Lymph # Seg Neutrophils % Seg Neuts % (Manual) Lymphocytes % (Manual) Monocytes % (Manual) Seg Neutrophils # Man Lymphocytes # (Manual) Monocytes # (Manual) PT INR APTT Fibrinogen Heparin Anti-Xa Level Sodium Potassium Chloride Carbon Dioxide BUN Creatinine Glucose POC Glucose 133 H 152 H 126 H Calcium AST ALT Total Protein Albumin Urine WBC (Auto) 12/29/16 12/29/16 12/29/16 11:31 16:23 21:12 WBC RBC Hgb Hct MCV MCH MCHC RDW Plt Count Lymph % (Auto) [place] % (Auto) Eos % (Auto) Lymph # Seg Neutrophils % Seg Neuts % (Manual) Lymphocytes % (Manual) Monocytes % (Manual) Seg Neutrophils # Man Lymphocytes # (Manual) Monocytes # (Manual) PT INR APTT Fibrinogen Heparin Anti-Xa Level Sodium Potassium Chloride Carbon Dioxide BUN Creatinine Glucose POC Glucose 115 H 133 H 140 H Calcium AST ALT Total Protein Albumin Urine WBC (Auto) 12/30/16 12/30/16 12/30/16 05:48 11:25 15:49 WBC RBC Hgb Hct MCV MCH MCHC RDW Plt Count Lymph % (Auto) [place] % (Auto) Eos % (Auto) Lymph # Seg Neutrophils % Seg Neuts % (Manual) Lymphocytes % (Manual) Monocytes % (Manual) Seg Neutrophils # Man Lymphocytes # (Manual) Monocytes # (Manual) PT INR APTT Fibrinogen Heparin Anti-Xa Level Sodium Potassium Chloride Carbon Dioxide BUN Creatinine Glucose POC Glucose 131 H 191 H 124 H Calcium AST ALT Total Protein Albumin Urine WBC (Auto) 12/30/16 12/31/16 12/31/16 20:59 06:26 11:30 WBC RBC Hgb Hct MCV MCH MCHC RDW Plt Count Lymph % (Auto) [place] % (Auto) Eos % (Auto) Lymph # Seg Neutrophils % Seg Neuts % (Manual) Lymphocytes % (Manual) Monocytes % (Manual) Seg Neutrophils # Man Lymphocytes # (Manual) Monocytes # (Manual) PT INR APTT Fibrinogen Heparin Anti-Xa Level Sodium Potassium Chloride Carbon Dioxide BUN Creatinine Glucose POC Glucose 144 H 129 H Calcium AST ALT Total Protein Albumin Urine WBC (Auto) > 182.0 H 12/31/16 12/31/16 12/31/16 11:34 16:45 21:37 WBC RBC Hgb Hct MCV MCH MCHC RDW Plt Count Lymph % (Auto) [place] % (Auto) Eos % (Auto) Lymph # Seg Neutrophils % Seg Neuts % (Manual) Lymphocytes % (Manual) Monocytes % (Manual) Seg Neutrophils # Man Lymphocytes # (Manual) Monocytes # (Manual) PT INR APTT Fibrinogen Heparin Anti-Xa Level Sodium Potassium Chloride Carbon Dioxide BUN Creatinine Glucose POC Glucose 165 H 122 H 127 H Calcium AST ALT Total Protein Albumin Urine WBC (Auto) 01/01/17 01/01/17 01/01/17 06:39 11:18 16:09 WBC RBC Hgb Hct MCV MCH MCHC RDW Plt Count Lymph % (Auto) [place] % (Auto) Eos % (Auto) Lymph # Seg Neutrophils % Seg Neuts % (Manual) Lymphocytes % (Manual) Monocytes % (Manual) Seg Neutrophils # Man Lymphocytes # (Manual) Monocytes # (Manual) PT INR APTT Fibrinogen Heparin Anti-Xa Level Sodium Potassium Chloride Carbon Dioxide BUN Creatinine Glucose POC Glucose 114 H 158 H 140 H Calcium AST ALT Total Protein Albumin Urine WBC (Auto) 01/01/17 01/02/17 01/02/17 21:33 05:30 12:01 WBC RBC Hgb Hct MCV MCH MCHC RDW Plt Count Lymph % (Auto) [place] % (Auto) Eos % (Auto) Lymph # Seg Neutrophils % Seg Neuts % (Manual) Lymphocytes % (Manual) Monocytes % (Manual) Seg Neutrophils # Man Lymphocytes # (Manual) Monocytes # (Manual) PT INR APTT Fibrinogen Heparin Anti-Xa Level Sodium Potassium Chloride Carbon Dioxide BUN Creatinine Glucose POC Glucose 131 H 148 H 149 H Calcium AST ALT Total Protein Albumin Urine WBC (Auto) 01/02/17 01/02/17 01/03/17 16:01 22:02 05:52 WBC RBC Hgb Hct MCV MCH MCHC RDW Plt Count Lymph % (Auto) [place] % (Auto) Eos % (Auto) Lymph # Seg Neutrophils % Seg Neuts % (Manual) Lymphocytes % (Manual) Monocytes % (Manual) Seg Neutrophils # Man Lymphocytes # (Manual) Monocytes # (Manual) PT INR APTT Fibrinogen Heparin Anti-Xa Level Sodium Potassium Chloride Carbon Dioxide BUN Creatinine Glucose POC Glucose 127 H 139 H 122 H Calcium AST ALT Total Protein Albumin Urine WBC (Auto) 01/03/17 01/03/17 01/03/17 11:25 16:15 22:01 WBC RBC Hgb Hct MCV MCH MCHC RDW Plt Count Lymph % (Auto) [place] % (Auto) Eos % (Auto) Lymph # Seg Neutrophils % Seg Neuts % (Manual) Lymphocytes % (Manual) Monocytes % (Manual) Seg Neutrophils # Man Lymphocytes # (Manual) Monocytes # (Manual) PT INR APTT Fibrinogen Heparin Anti-Xa Level Sodium Potassium Chloride Carbon Dioxide BUN Creatinine Glucose POC Glucose 159 H 145 H 141 H Calcium AST ALT Total Protein Albumin Urine WBC (Auto) 01/04/17 01/04/17 01/04/17 07:11 11:48 16:38 WBC RBC Hgb Hct MCV MCH MCHC RDW Plt Count Lymph % (Auto) [place] % (Auto) Eos % (Auto) Lymph # Seg Neutrophils % Seg Neuts % (Manual) Lymphocytes % (Manual) Monocytes % (Manual) Seg Neutrophils # Man Lymphocytes # (Manual) Monocytes # (Manual) PT INR APTT Fibrinogen Heparin Anti-Xa Level Sodium Potassium Chloride Carbon Dioxide BUN Creatinine Glucose POC Glucose 141 H 153 H 136 H Calcium AST ALT Total Protein Albumin Urine WBC (Auto) 01/04/17 01/05/17 01/05/17 21:28 06:34 11:40 WBC RBC Hgb Hct MCV MCH MCHC RDW Plt Count Lymph % (Auto) [place] % (Auto) Eos % (Auto) Lymph # Seg Neutrophils % Seg Neuts % (Manual) Lymphocytes % (Manual) Monocytes % (Manual) Seg Neutrophils # Man Lymphocytes # (Manual) Monocytes # (Manual) PT INR APTT Fibrinogen Heparin Anti-Xa Level Sodium Potassium Chloride Carbon Dioxide BUN Creatinine Glucose POC Glucose 154 H 143 H 129 H Calcium AST ALT Total Protein Albumin Urine WBC (Auto) 01/05/17 01/05/17 01/06/17 16:31 21:16 06:09 WBC RBC Hgb Hct MCV MCH MCHC RDW Plt Count Lymph % (Auto) [place] % (Auto) Eos % (Auto) Lymph # Seg Neutrophils % Seg Neuts % (Manual) Lymphocytes % (Manual) Monocytes % (Manual) Seg Neutrophils # Man Lymphocytes # (Manual) Monocytes # (Manual) PT INR APTT Fibrinogen Heparin Anti-Xa Level Sodium Potassium Chloride Carbon Dioxide BUN Creatinine Glucose POC Glucose 129 H 123 H 147 H Calcium AST ALT Total Protein Albumin Urine WBC (Auto) 01/06/17 01/06/17 01/06/17 11:27 16:30 21:30 WBC RBC Hgb Hct MCV MCH MCHC RDW Plt Count Lymph % (Auto) [place] % (Auto) Eos % (Auto) Lymph # Seg Neutrophils % Seg Neuts % (Manual) Lymphocytes % (Manual) Monocytes % (Manual) Seg Neutrophils # Man Lymphocytes # (Manual) Monocytes # (Manual) PT INR APTT Fibrinogen Heparin Anti-Xa Level Sodium Potassium Chloride Carbon Dioxide BUN Creatinine Glucose POC Glucose 137 H 157 H 169 H Calcium AST ALT Total Protein Albumin Urine WBC (Auto) 01/07/17 01/07/17 01/07/17 06:03 11:36 16:51 WBC RBC Hgb Hct MCV MCH MCHC RDW Plt Count Lymph % (Auto) [place] % (Auto) Eos % (Auto) Lymph # Seg Neutrophils % Seg Neuts % (Manual) Lymphocytes % (Manual) Monocytes % (Manual) Seg Neutrophils # Man Lymphocytes # (Manual) Monocytes # (Manual) PT INR APTT Fibrinogen Heparin Anti-Xa Level Sodium Potassium Chloride Carbon Dioxide BUN Creatinine Glucose POC Glucose 141 H 157 H 138 H Calcium AST ALT Total Protein Albumin Urine WBC (Auto) 01/07/17 01/08/17 01/08/17 21:48 11:30 16:49 WBC RBC Hgb Hct MCV MCH MCHC RDW Plt Count Lymph % (Auto) [place] % (Auto) Eos % (Auto) Lymph # Seg Neutrophils % Seg Neuts % (Manual) Lymphocytes % (Manual) Monocytes % (Manual) Seg Neutrophils # Man Lymphocytes # (Manual) Monocytes # (Manual) PT INR APTT Fibrinogen Heparin Anti-Xa Level Sodium Potassium Chloride Carbon Dioxide BUN Creatinine Glucose POC Glucose 152 H 173 H 125 H Calcium AST ALT Total Protein Albumin Urine WBC (Auto) 01/08/17 01/09/17 21:18 06:13 WBC RBC Hgb Hct MCV MCH MCHC RDW Plt Count Lymph % (Auto) [place] % (Auto) Eos % (Auto) Lymph # Seg Neutrophils % Seg Neuts % (Manual) Lymphocytes % (Manual) Monocytes % (Manual) Seg Neutrophils # Man Lymphocytes # (Manual) Monocytes # (Manual) PT INR APTT Fibrinogen Heparin Anti-Xa Level Sodium Potassium Chloride Carbon Dioxide BUN Creatinine Glucose POC Glucose 154 H 162 H Calcium AST ALT Total Protein Albumin Urine WBC (Auto)
--- NOTE | 2017-01-09 09:42 | XRay Report ---
Left hip 2 views. Findings: There are no fractures or other acute findings. The lateral view is technically suboptimal due to the body habitus. There is almost complete obliteration of the joint space. Soft tissue calcifications are noted lateral to the femoral head and neck. Impression: Severe osteoarthritis with dystrophic soft tissue calcifications.
[2017-01-09] MEDS: DOLOPHINE PO SCH (10:37)
[2017-01-09] MEDS: ELIQUIS PO SCH ×2 (10:37→21:36)
[2017-01-09] MEDS: PROTONIX PO SCH ×2 (10:38→21:37)
[2017-01-09] MEDS: PEPCID PO SCH ×2 (10:38→21:36)
[2017-01-09] MEDS: NYSTOP TP SCH ×2 (10:38→21:39)
--- NOTE | 2017-01-09 11:13 | XRay Report ---
AP AND LATERAL VIEW OF THE LUMBAR SPINE: FINDINGS: There are no fractures or other acute findings. Alignment is normal. The vertebral body heights and disc spaces are normal. Incidental note is made of degenerative disc disease in the lower thoracic spine. A vena caval filter is also incidentally noted. IMPRESSION: No significant findings in the lumbar spine. Degenerative disc disease is noted in the visualized lower thoracic spine.
[2017-01-09] MEDS: XANAX PO PRN (12:19)
[2017-01-09] MEDS: DILAUDID IM PRN (12:47)
--- NOTE | 2017-01-09 14:11 | Progress Note ---
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 - Continue physical therapy - X-ray of the hip showed severe osteoarthritis - Orthopedics evaluation (8) DVT prophylaxis - On therapeutic eliquis. Patient is pending for placement History Interval history: patient complains lower back and left hip pain. Symptoms of UTI resolved. Hospitalist Physical - Physical exam Narrative exam: In moderate distress from pain. The patient is obese. Vital signs as documented. Head exam is unremarkable. No scleral icterus . Neck is without jugular venous distension, thyromegaly, or carotid bruits. Lungs are clear to auscultation. Cardiac exam reveals regular rate and Rhythm. First and second heart sounds normal. No murmurs, rubs or gallops. Abdominal exam reveals obese abdomen. Swelling on the left thigh, sore but no tenderness or flactulence. [employer]: Alert and oriented 3. - Constitutional Vitals: Temp Pulse Resp BP Pulse Ox 98.4 F 96 H 96 H 106/64 97 01/09/17 08:11 01/09/17 08:11 01/09/17 08:11 01/09/17 08:11 01/09/17 08:11 General appearance: Present: no acute distress, obese Results - Labs CBC & Chem 7: 12/26/16 05:21 12/26/16 05:21 Labs: Laboratory Last Values WBC 5.9 K/mm3 (4.5-11.0) 12/26/16 05:21 RBC 4.14 M/mm3 (3.65-5.03) 12/26/16 05:21 Hgb 10.7 gm/dl (11.8-15.2) L 12/26/16 05:21 Hct 33.4 % (35.5-45.6) L 12/26/16 05:21 MCV 81 fl (84-94) L 12/26/16 05:21 MCH 26 pg (28-32) L 12/26/16 05:21 MCHC 32 % (32-34) 12/26/16 05:21 RDW 16.6 % (13.2-15.2) H 12/26/16 05:21 Plt Count 278 K/mm3 (140-440) 12/26/16 05:21 Lymph % (Auto) 33.0 % (13.4-35.0) 12/26/16 05:21 [place] % (Auto) 13.5 % (0.0-7.3) H 12/26/16 05:21 Eos % (Auto) 6.9 % (0.0-4.3) H 12/26/16 05:21 Baso % (Auto) 0.9 % (0.0-1.8) 12/26/16 05:21 Lymph # 1.9 K/mm3 (1.2-5.4) 12/26/16 05:21 [place] # 0.8 K/mm3 (0.0-0.8) 12/26/16 05:21 Eos # 0.4 K/mm3 (0.0-0.4) 12/26/16 05:21 Baso # 0.1 K/mm3 (0.0-0.1) 12/26/16 05:21 Add Manual Diff Complete 11/27/16 17:00 Total Counted 100 11/27/16 17:00 Seg Neutrophils % 45.7 % (40.0-70.0) 12/26/16 05:21 Seg Neuts % (Manual) 80.0 % (40.0-70.0) H 11/27/16 17:00 Band Neutrophils % 0 % 11/27/16 17:00 Lymphocytes % (Manual) 9.0 % (13.4-35.0) L 11/27/16 17:00 Reactive Lymphs % (Man) 0 % 11/27/16 17:00 Monocytes % (Manual) 9.0 % (0.0-7.3) H 11/27/16 17:00 Eosinophils % (Manual) 0 % (0.0-4.3) 11/27/16 17:00 Basophils % (Manual) 0 % (0.0-1.8) 11/27/16 17:00 Metamyelocytes % 2.0 % 11/27/16 17:00 Myelocytes % 0 % 11/27/16 17:00 Promyelocytes % 0 % 11/27/16 17:00 Blast Cells % 0 % 11/27/16 17:00 Nucleated RBC % Not Reportable 11/27/16 17:00 Seg Neutrophils # 2.7 K/mm3 (1.8-7.7) 12/26/16 05:21 Seg Neutrophils # Man 7.7 K/mm3 (1.8-7.7) 11/27/16 17:00 Band Neutrophils # 0.0 K/mm3 11/27/16 17:00 Lymphocytes # (Manual) 0.9 K/mm3 (1.2-5.4) L 11/27/16 17:00 Abs React Lymphs (Man) 0.0 K/mm3 11/27/16 17:00 Monocytes # (Manual) 0.9 K/mm3 (0.0-0.8) H 11/27/16 17:00 Eosinophils # (Manual) 0.0 K/mm3 (0.0-0.4) 11/27/16 17:00 Basophils # (Manual) 0.0 K/mm3 (0.0-0.1) 11/27/16 17:00 Metamyelocytes # 0.2 K/mm3 11/27/16 17:00 Myelocytes # 0.0 K/mm3 11/27/16 17:00 Promyelocytes # 0.0 K/mm3 11/27/16 17:00 Blast Cells # 0.0 K/mm3 11/27/16 17:00 WBC Morphology Not Reportable 11/27/16 17:00 Hypersegmented Neuts Not Reportable 11/27/16 17:00 Hyposegmented Neuts Not Reportable 11/27/16 17:00 Hypogranular Neuts Not Reportable 11/27/16 17:00 Smudge Cells Not Reportable 11/27/16 17:00 Toxic Granulation Not Reportable 11/27/16 17:00 Toxic Vacuolation Not Reportable 11/27/16 17:00 Dohle Bodies Not Reportable 11/27/16 17:00 Pelger-Huet Anomaly Not Reportable 11/27/16 17:00 Mati Rods Not Reportable 11/27/16 17:00 Platelet Estimate Consistent w auto 11/27/16 17:00 Clumped Platelets Not Reportable 11/27/16 17:00 Plt Clumps, EDTA Not Reportable 11/27/16 17:00 Large Platelets Not Reportable 11/27/16 17:00 Giant Platelets Not Reportable 11/27/16 17:00 Platelet Satelliting Not Reportable 11/27/16 17:00 Plt Morphology Comment Not Reportable 11/27/16 17:00 RBC Morphology Not Reportable 11/27/16 17:00 Dimorphic RBCs Not Reportable 11/27/16 17:00 Polychromasia Not Reportable 11/27/16 17:00 Hypochromasia Not Reportable 11/27/16 17:00 Poikilocytosis Not Reportable 11/27/16 17:00 Anisocytosis 1+ 11/27/16 17:00 Microcytosis Not Reportable 11/27/16 17:00 Macrocytosis Not Reportable 11/27/16 17:00 Spherocytes Not Reportable 11/27/16 17:00 Pappenheimer Bodies Not Reportable 11/27/16 17:00 Sickle Cells Not Reportable 11/27/16 17:00 Target Cells Not Reportable 11/27/16 17:00 Tear Drop Cells Not Reportable 11/27/16 17:00 Ovalocytes Not Reportable 11/27/16 17:00 Helmet Cells Not Reportable 11/27/16 17:00 [place] Bodies Not Reportable 11/27/16 17:00 [place] Rings Not Reportable 11/27/16 17:00 [place] Cells Not Reportable 11/27/16 17:00 Bite Cells Not Reportable 11/27/16 17:00 Crenated Cell Not Reportable 11/27/16 17:00 Elliptocytes Not Reportable 11/27/16 17:00 Acanthocytes (Spur) Not Reportable 11/27/16 17:00 Rouleaux Not Reportable 11/27/16 17:00 Hemoglobin C Crystals Not Reportable 11/27/16 17:00 Schistocytes Not Reportable 11/27/16 17:00 Malaria parasites Not Reportable 11/27/16 17:00 Michael Bodies Not Reportable 11/27/16 17:00 Hem Pathologist Commnt No 11/27/16 17:00 PT 23.9 Sec. (12.2-14.9) H 11/30/16 17:15 INR 2.13 (0.87-1.13) H 11/30/16 17:15 APTT 62.0 Sec. (24.2-36.6) H* 12/04/16 Unknown Fibrinogen 474 mg/dl (211-480) 11/27/16 23:00 Heparin Anti-Xa Level 0.14 U.I./ml (0.3-0.7) L 11/30/16 Unknown Heparin Anti-Xa, Unfract Negative (Negative) 11/30/16 Unknown Sodium 142 mmol/L (137-145) 12/26/16 05:21 Potassium 3.8 mmol/L (3.6-5.0) 12/26/16 05:21 Chloride 104.0 mmol/L (98-107) 12/26/16 05:21 Carbon Dioxide 23 mmol/L (22-30) 12/26/16 05:21 Anion Gap 19 mmol/L 12/26/16 05:21 BUN 11 mg/dL (9-20) 12/26/16 05:21 Creatinine 0.4 mg/dL (0.8-1.5) L 12/26/16 05:21 Estimated GFR > 60 ml/min 12/26/16 05:21 BUN/Creatinine Ratio 27.50 % 12/26/16 05:21 Glucose 124 mg/dL (75-100) H 12/26/16 05:21 POC Glucose 173 (70-105) H 01/09/17 12:13 Calcium 9.5 mg/dL (8.4-10.2) 12/26/16 05:21 Total Bilirubin 0.3 mg/dL (0.1-1.2) 12/07/16 06:32 Direct Bilirubin 0.2 mg/dL (0-0.2) 11/30/16 04:18 Indirect Bilirubin 0.5 mg/dL 11/30/16 04:18 AST 12 units/L (5-40) 12/07/16 06:32 ALT 21 units/L (7-56) 12/07/16 06:32 Alkaline Phosphatase 83 units/L (35-129) 12/07/16 06:32 Total Protein 6.2 g/dL (6.3-8.2) L 12/07/16 06:32 Albumin 2.9 g/dL (3.9-5) L 12/07/16 06:32 Albumin/Globulin Ratio 0.9 % 12/07/16 06:32 Serotonin Release Assay See scanned report 11/30/16 Unknown Urine Color Yellow (Yellow) 12/31/16 11:30 Urine Turbidity Cloudy (Clear) 12/31/16 11:30 Urine pH 5.0 (5.0-7.0) 12/31/16 11:30 Ur Specific [place] 1.017 (1.003-1.030) 12/31/16 11:30 Urine Protein <15 mg/dl mg/dL (Negative) 12/31/16 11:30 Urine Glucose (UA) Neg mg/dL (Negative) 12/31/16 11:30 Urine Ketones Neg mg/dL (Negative) 12/31/16 11:30 Urine Blood Sm (Negative) 12/31/16 11:30 Urine Nitrite Neg (Negative) 12/31/16 11:30 Urine Bilirubin Neg (Negative) 12/31/16 11:30 Urine Urobilinogen 2.0 mg/dL (<2.0) 12/31/16 11:30 Ur Leukocyte Esterase Lg (Negative) 12/31/16 11:30 Urine WBC (Auto) > 182.0 /HPF (0.0-6.0) H 12/31/16 11:30 Urine RBC (Auto) 3.0 /HPF (0.0-6.0) 12/31/16 11:30 U Epithel Cells (Auto) < 1.0 /HPF (0-13.0) 11/30/16 Unknown Urine Bacteria (Auto) 2+ /HPF (Negative) 12/31/16 11:30 Uric Acid Crystals 1+ 11/30/16 Unknown Amorphous Crystals Few 12/31/16 11:30 Urine Mucus 1+ /HPF 12/31/16 11:30 Heparin-induced Plt Ab Negative (Negative) 11/30/16 Unknown UF Heparin High Dose 0 % Release (()) 11/30/16 Unknown MIKA UFH Low Dose 0.1 1 % Release (()) 11/30/16 Unknown MIKA UFH Low Dose 0.5 0 % Release (()) 11/30/16 Unknown Blood Type O POSITIVE 11/27/16 02:58 Antibody Screen Negative 11/27/16 02:58
--- NOTE | 2017-01-09 14:51 | Event Note ---
seen on consult. DX DID left hip Severly deconditioned Ch pain REC Rehab/ conditioning/ambulation, may need varma NSIADs, Wean off narcotics He can be discharged with out patient rehab programme, follow up in office. With adequate rehab and conditining, he may consider Total hip arthroplasty if Medically stable.Total hip at tis time is not recommended
[2017-01-09] MEDS: NEURONTIN PO SCH (17:21)
[2017-01-09] MEDS: ROXICODONE PO PRN ×2 (17:22→21:37)
[2017-01-10] MEDS: XANAX PO PRN ×2 (00:10→11:10)
[2017-01-10] MEDS: ROXICODONE PO PRN ×2 (06:22→12:42)
[2017-01-10] MEDS: NOVOLOG SUB-Q SCH ×2 (08:32→12:45)
[2017-01-10] MEDS: CARAFATE PO SCH ×2 (09:05→12:44)
[2017-01-10] MEDS: DOLOPHINE PO SCH (09:06)
[2017-01-10] MEDS: ELIQUIS PO SCH (09:07)
[2017-01-10] MEDS: PEPCID PO SCH (09:08)
[2017-01-10] MEDS: PROTONIX PO SCH (09:08)
--- NOTE | 2017-01-10 09:14 | Discharge Summary ---
Providers - Providers Date of Admission: 11/26/16 23:45 Date of discharge: 01/10/17 Attending physician: YAZMIN WASHINGTON MD 12/02/16 08:20 Consult to Physician [CONS] Routine Consulting Provider: SARAHY TANG Reason For Exam: thrombocytopenia Place consult to:: Dr. Tang Notified:: Padmini RN Phone number called:: Was contact made?: Yes If yes, spoke with:: Larissa-answering service Time called:: 09:03 12/04/16 14:41 Consult to Wound/ET Nurse [CONS] Routine Reason For Exam: wound eval 12/16/16 11:39 Consult to Physician [CONS] Routine Consulting Provider: DAMON DAS Reason For Exam: PEG removal Place consult to:: Dr. Das Notified:: Zeynep JAMIL Phone number called:: Was contact made?: Yes If yes, spoke with:: Miguel Angel-answering service Time called:: 12:03 12/25/16 05:55 Physical Therapy Evaluation and Treat [CONS] Routine Comment: Reason For Exam: weakness/deconditioning. 12/25/16 05:56 Consult to Physician [CONS] Routine Consulting Provider: INDER AMOS Reason For Exam: chronic osteo s/p 6wks abx [address] consult to:: ID Notified:: Violetta RN Phone number called:: [phone] Was contact made?: Yes If yes, spoke with:: Esther- answering service Time called:: 08:49 12/26/16 16:05 Consult to Physician [CONS] Routine Consulting Provider: LETICIA THOMPSON Reason For Exam: back pain, back osteomyelitis, severe back pain Place consult to:: neurosurgery Notified:: office Phone number called:: [phone] Was contact made?: Yes If yes, spoke with:: lorri Time called:: 16:30 01/09/17 14:11 Consult to Physician [CONS] Routine Consulting Provider: VINCE CASTILLO V Reason For Exam: severe osteoarthritis of the left hip Place consult to:: orthopedics Notified:: DR. CASTILLO 11/27/16 01:34 Consult to Physician [CONS] Urgent Consulting Provider: NIMESH PÉREZ Reason For Exam: saddle emboli Notified:: y 11/27/16 08:00 Consult to Wound/ET Nurse [CONS] Stat Reason For Exam: wound eval-POA wound sacrum-per protocol 11/30/16 09:32 Consult to Physician [CONS] Routine Consulting Provider: JAZMINE DE LA TORRE Reason For Exam: thrombocytopenia Place consult to:: answering service Notified:: yes Phone number called:: [phone] If yes, spoke with:: campos Time called:: 09:53 12/01/16 13:00 Physical Therapy Evaluation and Treat [CONS] Routine Comment: Reason For Exam: rehab eval Primary care physician: PARMJIT BARAHONA Hospitalization Reason for admission: Saddle embolus Hospital course: patient was transferred from [facility] for sadle embolus, He was started on heparin drip and vascular surgery was consulted and EKOS therapy was done. later the patient was put on Eliquis. 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 The patient was still complaining of severe back pain and MRI was done and showed small abscess and we have tried to transfer to [facility] and declined him because he has very small abscess and doesn't need surgery. The patient was on pain medications, physical therapy and has been here for long time because he didn't like the nursing homes and rehab places we find for him. He has severe left hip osteoarthritis and orthopedics recommend to wean off the narcotics and treat him with NSAIDS. I discharged him with Ibuprofen and discussed about the interaction with eliquis and understood the risk benefit and gave him short term therapy to continue with his PCP. I advised to stop if he has any bleeding and seek medical attention. Patient was stable by the time of discharge to SNF for acute/Subacute rehab. Disposition: DC/TX SNF [facility] Time spent for discharge: 31 minutes - Discharge Diagnoses (1) LIVAN on CPAP Status: Acute (2) Pulmonary hypertension Status: Acute (3) Saddle embolus Status: Acute (4) Diabetes Status: Chronic Qualifiers: Diabetes mellitus type: D Diabetes mellitus complication status: D Diabetes mellitus complication detail: D Diabetic retinopathy severity: D Proliferative retinopathy type: P Diabetes mellitus macular edema: D Diabetes mellitus intermediate insulin use: D Laterality: L Chronic kidney disease stage: C (5) Dorsalgia of lumbosacral region Status: Chronic (6) Morbid (severe) obesity due to excess calories Status: Chronic (7) Osteomyelitis Status: Chronic Qualifiers: Osteomyelitis location: O Laterality: L Chronicity: C Core Measure Documentation - Palliative Care Palliative Care/ Comfort Measures: Not Applicable - Core Measures Any of the following diagnoses?: DVT/PE - VTE Discharge Requirements Deep Vein Thrombosis/Pulmonary Embolism Present on Admission: Yes Has pt received <5 days of overlap therapy or INR<2.0: No (Not recommended, patient is on eliquis) Anticoagulant overlap therapy prescribed at discharge: No Contraindication No Overlap Therapy order at DC: Not Indicated Exam - Physical Exam Narrative exam: In moderate distress from pain. The patient is obese. Vital signs as documented. Head exam is unremarkable. No scleral icterus . Neck is without jugular venous distension, thyromegaly, or carotid bruits. Lungs are clear to auscultation. Cardiac exam reveals regular rate and Rhythm. First and second heart sounds normal. No murmurs, rubs or gallops. Abdominal exam reveals obese abdomen. DEPENDENCY COUNSELOR: Alert and oriented 3. - Constitutional Vitals: Temp Pulse Resp BP Pulse Ox 98 F 96 H 18 118/70 98 01/10/17 07:30 01/10/17 07:30 01/10/17 07:30 01/10/17 07:30 01/10/17 07:30 Plan Activity: advance as tolerated Weight Bearing Status: Weight Bear as Tolerated Diet: low fat, diabetic Special Instructions: physical therapy Follow up with: PARMJIT BARAHONA MD [Primary Care Provider] - 7 Days Prescriptions: ALPRAZolam [Xanax TAB] 0.25 mg PO Q6H PRN #30 tablet PRN Reason: Anxiety HYDROcodone/APAP 5-325 [Bloxom 5-325 mg TAB] 2 each PO Q6H PRN #30 tablet PRN Reason: Pain, Moderate (4-6) Ibuprofen [Motrin 800 MG tab] 800 mg PO Q8HR PRN #30 tablet PRN Reason: Pain Methadone [Dolophine] 20 mg PO DAILY #30 tablet Methadone [Dolophine] 20 mg FEEDTUBE DAILY #10 tablet oxyCODONE /ACETAMINOPHEN [Percocet 5/325 mg] 1 tab PO Q4HR #30 tab
[2017-01-10] MEDS: NYSTOP TP SCH (12:43)
[2017-01-10] MEDS: DILAUDID PO PRN (15:32)
[2017-01-10 16:09] VITALS: BP 136/66
== END 2017-01-10 16:39 | DRG 163 ==
LOC: CC1 23:45 → 4A 11-30 19:41 → 3A 12-27 17:43
PROVIDERS: ADMIT Internal Medicine; ATTEND Internal Medicine
PROC: 02HR33Z Insertion of Infusion Device into Left Pulmonary Artery, Percutaneous Approach (ICD-10-PCS; 2016-11-27)
PROC: 3E05317 Introduction of Other Thrombolytic into Peripheral Artery, Percutaneous Approach (ICD-10-PCS; 2016-11-27)
PROC: 02HQ33Z Insertion of Infusion Device into Right Pulmonary Artery, Percutaneous Approach (ICD-10-PCS; 2016-11-27)
PROC: 06H033Z Insertion of Infusion Device into Inferior Vena Cava, Percutaneous Approach (ICD-10-PCS; 2016-11-27)
PROC: B5191ZA Fluoroscopy of Inferior Vena Cava using Low Osmolar Contrast, Guidance (ICD-10-PCS; 2016-11-27)
PROC: 02CQ3ZZ Extirpation of Matter from Right Pulmonary Artery, Percutaneous Approach (ICD-10-PCS; principal; 2016-11-28)
PROC: 02CR3ZZ Extirpation of Matter from Left Pulmonary Artery, Percutaneous Approach (ICD-10-PCS; 2016-11-28)
PROC: 02PYX3Z Removal of Infusion Device from Great Vessel, External Approach (ICD-10-PCS; 2016-11-28)
PROC: B31T1ZZ Fluoroscopy of Left Pulmonary Artery using Low Osmolar Contrast (ICD-10-PCS; 2016-11-28)
PROC: B31S1ZZ Fluoroscopy of Right Pulmonary Artery using Low Osmolar Contrast (ICD-10-PCS; 2016-11-28)
DX: I26.02 Saddle embolus of pulmonary artery with acute cor pulmonale (principal); K68.12 Psoas muscle abscess; J96.01 Acute respiratory failure with hypoxia; D68.59 Other primary thrombophilia; M86.8X8 Other osteomyelitis, other site; I95.89 Other hypotension; E11.9 Type 2 diabetes mellitus without complications; I10 Essential (primary) hypertension; G89.29 Other chronic pain; E66.01 Morbid (severe) obesity due to excess calories; G47.33 Obstructive sleep apnea (adult) (pediatric); D69.6 Thrombocytopenia, unspecified; I27.2 Other secondary pulmonary hypertension; E87.6 Hypokalemia; R53.81 Other malaise; M54.9 Dorsalgia, unspecified; M16.12 Unilateral primary osteoarthritis, left hip; Z83.3 Family history of diabetes mellitus; Z88.1 Allergy status to other antibiotic agents; Z68.39 Body mass index [BMI] 39.0-39.9, adult
CPT/HCPCS: 36014; 36415; 36556; 37184; 37191; 37211; 37214; 71010; 72100; 72110; 74000; 75743; 80048; 80053; 80074; 81001; 82962; 85007; 85014; 85018; 85025; 85027; 85049; 85384; 85520; 85610; 85730; 86022; 86850; 86900; 86901; 87040; 87076; 87086; 87186; 87493; 93005; 93010; 93306; 93970; 94660; 94760; C1751; C1757; C1769; C1880; C1887; C1894; C9121; J0690; J0883; J1170; J1644; J1815; J2060; J2250; J2270; J2405; J2543; J2997; J3010; J7030; J7040; J7050; Q9967